=== PATIENT | female | born 1980 | race Caucasian/White ===

== ENCOUNTER → 2017-10-01 10:33 | Outpatient (CLI) | payer BC, SELFPAY ==
[2017-10-01 12:16] LABS: HCG Quant, Pregnancy 2404 mIU/mL (1-3)
== END ==
PROVIDERS: PCP Family Medicine; Visit Provider Obstetrics & Gynecology
DX: Z32.01 Encounter for pregnancy test, result positive (principal)
CPT/HCPCS: 36415; 84702

== ENCOUNTER → 2017-10-03 00:42 | Outpatient (CLI) | payer BC, SELFPAY ==
[2017-10-03 10:02] LABS: HCT 34.8 % (36.0-46.0); HGB 11.8 g/dL (12.0-15.5); Mean Corp. HGB Concentration 33.9 g/dL (32.0-36.0); Mean Corpuscular Volume 91.3 fL (80-95); Mean Platelet Volume 8.6 fL (8.0-11.0); Platelet Count 254 x1000/uL (130-400); RBC 3.81 m/cumm (4.00-5.20); RBC Distribution Width 12.1 % (11.7-14.6); White Blood Cell Count 2.84 k/cumm (4.4-10.8)
[2017-10-03 11:05] LABS: HCG Quant, Pregnancy 4052 mIU/mL (1-3)
[2017-11-07 10:11] LABS: Zika Elisa, Serum See Comments
== END ==
PROVIDERS: Obstetrics & Gynecology; PCP Family Medicine; Visit Provider Family Medicine
DX: D72.818 Other decreased white blood cell count (principal); Z32.01 Encounter for pregnancy test, result positive; Z36.89 Encounter for other specified antenatal screening
CPT/HCPCS: 36415; 85027; 84702

== ENCOUNTER 2017-11-07 06:33 | Day surgery (SDC) | payer BC, SELFPAY ==
[2017-11-07 06:20] VITALS: BP 118/71; PULSE 58; RESP 16; TEMP 37; O2SAT 100
[2017-11-07] MEDS: Lactated Ringers 1,000 ML 125 ML IV (06:57)
[2017-11-07 07:07] LABS: Absolute Basophil Count 0.05 k/cumm (0.0-0.2); Absolute Eosinophil Count 0.03 k/cumm (0.0-0.7); Absolute Lymphocyte Count 0.98 k/cumm (1.2-3.4); Absolute Monocyte Count 0.23 k/cumm (0.11-0.7); Basophils % 1.7; HCT 32.9 % (36.0-46.0); HGB 11.4 g/dL (12.0-15.5); Lymphocytes % 32.8; Mean Corp. HGB Concentration 34.7 g/dL (32.0-36.0); Mean Corpuscular Hemoglobin 31.6 pg (27.0-33.0); Mean Corpuscular Volume 91.1 fL (80-95); Mean Platelet Volume 8.9 fL (8.0-11.0); Monocytes % 7.7; Neutrophils % 56.8; Platelet Count 229 x1000/uL (130-400); RBC 3.61 m/cumm (4.00-5.20); White Blood Cell Count 2.99 k/cumm (4.4-10.8)
[2017-11-07] MEDS: Lidocaine 1% Pres-Free 5 ML VIAL 20 ML (07:50)
--- NOTE | 2017-11-07 07:55 | POCSPONT_PTH ---
PATIENT: Chasity Gallo [facility]: [facility] U#:[id number] AGE/SX: 37/F ROOM: RE11/07/[address]: Onesimo Kat MD : 1980 BED: DIS: 11/07/2017 SPEC #: [id number] RECD: 11/07/17 12:42 STATUS: LASHAE REQ #: [id number] ANCELMO: 11/07/17 07:[address]: Onesimo Kat DEPT: Surgical Specimen RECD BY: Desiree Ashraf ENTERED: 11/07/17 12:42 SP TYPE: POCSPONT AMY DR: Arabella Villarreal MD, DC Tissues: 1 - ,SPONTANEOUS Procedures: GROSS AND MICRO LEVEL 4 Comments: [id number]
[2017-11-07 08:35] VITALS: BP 106/64; PULSE 62; RESP 16; TEMP 36; O2SAT 100
[2017-11-07] MEDS: ACETAMINOPHEN 1,000 MG/100 ML BTL 400 MG IVPB (09:00)
[2017-11-07] MEDS: oxyCODONE 5 MG TAB PO (09:06)
[2017-11-07 09:35] VITALS: BP 120/75; PULSE 59; RESP 16; TEMP 36; O2SAT 100
--- NOTE | 2017-11-07 12:11 | W.PM.OP ---
Operative Note Date of procedure: 11/07/17 Pre-op diagnosis: Missed Post-op diagnosis: same Procedure: Suction D&C Surgeon: Onesimo Kat Anesthesia: MAC Estimated blood loss (mL): 100 Pathology: other (Products of conception) Complications: None Patient was transported to: PACU Patient's condition: stable Findings: Products of conception Procedure Description: The patient was taken to the operating room and after adequate sedation the patient was placed in lithotomy positioin. The patient was prepped and draped in the usual sterile manner. The bladder was straight cathed for approximately 120ml of clear urine. A weighted speculum was placed in the vagina with good visualization of the cervix. The anterior lip of the cervix was grasped with an Allis forceps and the cervix gently dilated with Fatimah dilatators. A 9 F curved suction curette was advanced without difficulty. The suction apparatus was activated and curette was rotated. Copious products of conception were retrieved. A sharped loop curettage of the endometrial cavity was perfom and two additonal passes with the suction and curved curette were taken in order to evacuate the uterus. At this point the uterus was well contracted and bleeding was minimal. All instrumentation was removed and the patient transferred to PACU in stable condition.
== END 2017-11-07 10:41 | disposition home or self-care (01) ==
PROVIDERS: PCP Family Medicine; Visit Provider Obstetrics & Gynecology
PROC: (CPT 59841; principal; 2017-11-07 07:30)
DX: O02.1 Missed abortion (principal); K21.9 Gastro-esophageal reflux disease without esophagitis
CPT/HCPCS: 59812; 36415; 86850; 86900; 86901; 88305; 85025; J0131; J1885; J2250; J2405

== ENCOUNTER 2018-05-20 16:21 | Outpatient (CLI) | payer BC, SELFPAY ==
[2018-05-20 18:22] LABS: HCG Quant, Pregnancy 33 mIU/mL (1-3)
== END 2018-05-20 16:41 ==
PROVIDERS: PCP Family Medicine; Visit Provider Obstetrics & Gynecology
DX: Z34.91 Encounter for supervision of normal pregnancy, unspecified, first trimester (principal)
CPT/HCPCS: 36415; 84702

== ENCOUNTER 2018-05-22 01:34 | Outpatient (CLI) | payer BC, SELFPAY ==
[2018-05-22 15:00] LABS: HCG Quant, Pregnancy 115 mIU/mL (1-3)
== END 2018-05-22 01:54 ==
PROVIDERS: PCP Family Medicine; Visit Provider Obstetrics & Gynecology
DX: Z34.91 Encounter for supervision of normal pregnancy, unspecified, first trimester (principal); Z32.01 Encounter for pregnancy test, result positive
CPT/HCPCS: 36415; 84702

== ENCOUNTER 2018-05-27 15:06 | Outpatient (CLI) | payer BC, SELFPAY ==
[2018-05-27 16:45] LABS: HCG Quant, Pregnancy 2181 mIU/mL (1-3)
== END 2018-05-27 15:26 ==
PROVIDERS: PCP Family Medicine; Visit Provider Obstetrics & Gynecology
DX: Z34.91 Encounter for supervision of normal pregnancy, unspecified, first trimester (principal)
CPT/HCPCS: 36415; 84702

== ENCOUNTER 2018-05-29 13:33 | Outpatient (CLI) | payer BC, SELFPAY ==
[2018-05-29 14:26] LABS: HCG Quant, Pregnancy 5709 mIU/mL (1-3)
== END 2018-05-29 13:53 ==
PROVIDERS: PCP Family Medicine; Visit Provider Obstetrics & Gynecology
DX: Z34.90 Encounter for supervision of normal pregnancy, unspecified, unspecified trimester (principal)
CPT/HCPCS: 36415; 84702

== ENCOUNTER 2018-05-30 08:56 | Emergency (ER) | payer BC, SELFPAY ==
--- NOTE | 2018-05-30 09:08 | NUR.NOTE ---
pt has been seeing OBGYN who told her to come into the ED this morning for what he believes to be an ectopic
[2018-05-30 09:09] VITALS: BP 127/68; PULSE 89; RESP 16; TEMP 37; O2SAT 99
--- NOTE | 2018-05-30 09:43 | HPE_ITS ---
Date of service: 05/30/18 Time of Service: 09:42 Assessment and Plan (1) Ectopic : Current visit: Yes Status: Acute Will repeat HCG, CBC, and CMP today. Will treat with IM methotrexate. I had a lengthy discussion with the patient regarding follow up. We will repeat HCGs on day 4 and day 7. Due to her history of neutropenia will also check CBC with diff on each of those draws. She is counseled to seek care for signs and symptoms of rupture such as increase in abdominal pain. All questions were an swered. She is free for discharge once methotrexate has been administered. History of Present Illness Chief Complaint: Ectopic Narrative: 37 year old presents on my request to the emergency department for managment of suspected ectopic . I had followed this patient in the clinic and HCG levels did rise appropriately. HCG levels as follows: 05/20 - 05/22 - 115 05/27 I did perform an ultrasound in the clinic which showed a 2 cm mass in the right adnexa and a possible pseudosac in the endometrium but with no definintive IUP. The patient had been treated in the past for a suspected ectopic but it was never confirmed to be extrauterine and she reports that after MTX she did pass tissue. The patient reports no abdominal pain, cramping and no vaginal bleeding. Her medical history is significant for Hodgkins lymphoma but has been disease free. Review of Systems Constitutional Denies body ache(s), Denies difficulty sleeping, Denies fever(s) and Denies weakness Gastrointestinal Denies abdominal pain Genitourinary Denies system reviewed and no additional complaints, except as docu Neurologic Denies weakness [facility] Medical History Rash (Acute) (Acute) Neuropathy (Chronic 06/20/16) Missed (Acute 10/31/17) Gastroesophageal reflux disease (Chronic) Carpal tunnel syndrome on both sides (Suspected 08/26/16) Anxiety (Chronic 08/07/15) Herniated intervertebral disc of lumbar spine (Resolved) Hodgkin's disease in remission (Resolved) Hodgkin's disease of lymph nodes of multiple sites (Resolved) Injury of toe (Resolved) Thrombophlebitis of superficial veins of lower extremity (Resolved) Surgical History EGD - MAC (07/02/11) Open Carpal Tunnel release PROCEDURES Family History Mother Hypothyroid Father Neoplasm Brother Asthma Grandfather Neoplasm Grandfather Essential hypertension Grandmother Diabetes Neoplasm Grandmother Diabetes Daughter Asthma Daughter No problems noted. 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 Do you feel safe at home: Yes Do you feel safe in your relationship?: Yes Meds Home Medications Medication Instructions Recorded Confirmed Type Vitamin B6 50 mg PO DAILY 10/02/16 05/29/18 History ranitidine HCl 150 mg PO DAILY tab-cap 10/02/16 05/29/18 History fluticasone propionate 50 2 spray ANTHONY DAILY #47.4 gm 04/22/18 05/29/18 Rx mcg/actuation nasal spray,suspension Allergies Allergy/AdvReac Type Severity Reaction Status Date / Time No Known Drug Allergies Allergy Unverified 05/30/18 09:13 saline syringe AdvReac Mild nausea and Uncoded 05/30/18 09:13 vomiting Results Labs : 05/30/18 09:32 05/30/18 09:32 Last Vital Signs Temp 98.6 F 05/30/18 09:09 Pulse 89 05/30/18 09:09 Resp 16 05/30/18 09:09 BP 127/68 05/30/18 09:09 Pulse Ox 99 05/30/18 09:09
--- NOTE | 2018-05-30 10:00 | W.ED.GENAD ---
Discharge Plan Disposition Patient Disposition: HOME Condition: Good Discharge Details Chief Complaint: Abd Prob Clinical Impression: Ectopic Primary Care Provider: Arabella Villarreal ED Provider: Good De Home Meds and New Rx's Prescriptions: No Action fluticasone propionate 50 mcg/actuation spray,suspension 2 spray ANTHONY DAILY Qty: 47.4 RF: 5 ranitidine HCl 150 MG capsule 150 mg PO DAILY RF: 0 vitamin b6 50 mg PO DAILY RF: 0 Discharge Instructions Instructions: Ectopic (ED) Additional Instructions: Please return on 06/02/18 and 06/05/18 to the woman's wellness clinic or the lab for repeat blood draw. Please follow-up as soon as possible with Dr. Kat for your scheduled appointment for reassessment and reevaluation. If you notice any pain, vaginal discharge, nausea, worsening back pain, please return immediately for reassessment. Please have a low threshold of return to the emergency department for any symptoms that concern you. If you notice any worsening of your symptoms, or any new symptoms such as vomiting, diarrhea, fever, chills, shortness of breath, chest pain, numbness, weakness, or fainting , please return immediately to the emergency department for reevaluation. Please follow up with your primary care provider as soon as possible for reassessment and reevaluation. As always, it was a pleasure participating in your medical care today. Referrals: Arabella Villarreal MD, [place] [Primary Care Provider] - Medical Decision Making This is a 37-year-old female with a past medical history of 2 ectopic pregnancies in the past, as well as 1 miscarriage a few months ago for which she required a D&C. She does have a history of Hodgkin's lymphoma, for which she was cured 5 years ago. Patient states that she took a test on 2 weeks ago and noted it was elevated, then when she went to see her obstetrics needle loom weaver ultrasound revealed no evidence of intrauterine . Questionable ectopic component on the left. Dr. Kat sent the patient in today for administration of methotrexate since it is the weekend. The patient denies any history of vaginal discharge, STD, previous abdominal surgeries, or other complaints. She states that the pain is actually very minimal and she only has a mild left lower back ache. She denies any pelvic pain. Dr. Kat came and evaluated the patient here in the ED, ordered methotrexate for administration, as well as outpatient lab follow-up. Patient remains hemodynamically stable, is a nontender abdomen and pelvis, shows no signs of acute decompensation. Dr. Kat's recommendation is discharged with close follow-up in the next 3 and 5 days for laboratory redraw. Lab slips have been provided, a clear plan has been discussed with the patient, she is well aware of symptoms for which to follow-up with, and the importance of close follow-up with her obstetrics needle loom weaver. We discussed red flags for which to return. Diagnosis suspected ectopic . I have extensively reviewed the treatment plan and discharge instructions with the patient. I have addressed all patient concerns at this time. The patient was made aware of what symptoms to monitor for that would warrant a return to the emergency department. Discussed the plan with the patient, they demonstrate verbal understanding and agreement with our assessment and plan at this time. HPI General Date/Time Provider Initiated Documentation: 05/30/18 09:04. HPI Narrative: This is a 37-year-old female with a past medical history of 2 ectopic pregnancies in the past, as well as 1 miscarriage a few months ago for which she required a D&C. She does have a history of Hodgkin's lymphoma, for which she was cured 5 years ago. Patient states that she took a test on 2 weeks ago and noted it was elevated, then when she went to see her obstetrics needle loom weaver ultrasound revealed no evidence of intrauterine . Questionable ectopic component on the left. Dr. Kat sent the patient in today for administration of methotrexate since it is the weekend. The patient denies any history of vaginal discharge, STD, previous abdominal surgeries, or other complaints. She states that the pain is actually very minimal and she only has a mild left lower back ache. She denies any pelvic pain. Dr. Kat came and evaluated the patient here in the ED, ordered methotrexate for administration, as well as outpatient lab follow-up. Patient has no additional complaints at this time. No other modifying factors. Related Data Home Medications Medication Instructions Recorded Confirmed Vitamin B6 50 mg PO DAILY 10/02/16 05/29/18 ranitidine HCl 150 mg PO DAILY tab-cap 10/02/16 05/29/18 fluticasone propionate 50 2 spray ANTHONY DAILY #47.4 gm 04/22/18 05/29/18 mcg/actuation nasal spray,suspension Previous Rx's Medication Instructions Recorded fluticasone propionate 50 2 spray ANTHONY DAILY #47.4 gm 04/22/18 mcg/actuation nasal spray,suspension Allergies Allergy/AdvReac Type Severity Reaction Status Date / Time No Known Drug Allergies Allergy Unverified 05/30/18 09:13 saline syringe AdvReac Mild nausea and Uncoded 05/30/18 09:13 vomiting General Stated Complaint: Abd Prob MARIBEL: 3 Review of Systems Review of Systems All systems reviewed & are unremarkable except as noted in HPI and below PFSH Medical History Rash (Acute) (Acute) Neuropathy (Chronic 06/20/16) Missed (Acute 10/31/17) Gastroesophageal reflux disease (Chronic) Carpal tunnel syndrome on both sides (Suspected 08/26/16) Anxiety (Chronic 08/07/15) Herniated intervertebral disc of lumbar spine (Resolved) Hodgkin's disease in remission (Resolved) Hodgkin's disease of lymph nodes of multiple sites (Resolved) Injury of toe (Resolved) Thrombophlebitis of superficial veins of lower extremity (Resolved) Surgical History EGD - MAC (07/02/11) Open Carpal Tunnel release PROCEDURES Family History Mother Hypothyroid Father Neoplasm Brother Asthma Grandfather Neoplasm Grandfather Essential hypertension Grandmother Diabetes Neoplasm Grandmother Diabetes Daughter Asthma Daughter No problems noted. 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 3.ENT: Atraumatic external nose and ears. Moist MM. Neck: Symmetric, trachea midline, No thyromegaly. 4.CVS: +S1/S2, No murmurs or gallops. Peripheral pulses 2+ and equal in all extremities. Brisk capillary refill in all extremities. 5.RESP: Unlabored respiratory effort. Clear to auscultation bilaterally. No wheezes rales or rhonchi 6.GI: Soft, Nontender/Nondistended, No hepatosplenomegaly. No guarding or rebound. No pelvic tenderness. No flank or CVA tenderness. 7.MSK: Normocephalic/Atraumatic, Extremities w/o deformity or ttp No cyanosis or clubbing, Normal movement of all extremities 8.Skin: Warm, Dry. No rashes or lesions. 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 Sensation grossly intact, no focal neurologic deficits. 10.Psych: (AAO) x3. Appropriate mood and affect Course Vital Signs Temperature 37 C 05/30/18 09:09 Pulse 89 05/30/18 09:09 Respiratory Rate 16 05/30/18 09:09 Blood Pressure 127/68 05/30/18 09:09 Pulse Oximetry 99 05/30/18 09:09 Temperature 37 C 05/30/18 09:09 Temperature Source Skin 05/30/18 09:09 Pulse 89 05/30/18 09:09 Respiratory Rate 16 05/30/18 09:09 Respiratory Effort 05/30/18 09:12 Blood Pressure 127/68 05/30/18 09:09 Blood Pressure Position Sitting 05/30/18 09:09 Pulse Oximetry 99 05/30/18 09:09 Oxygen Delivery Method Room Air 05/30/18 09:09 Oxygen Flow Rate 0 05/30/18 09:09 Pain Level 2 05/30/18 09:09
[2018-05-30 10:05] LABS: Abs Immature Grans 0.01 k/cumm (0.0-0.09); Absolute Basophil Count 0.05 k/cumm (0.0-0.2); Absolute Eosinophil Count 0.05 k/cumm (0.0-0.7); Absolute Monocyte Count 0.41 k/cumm (0.11-0.7); Absolute Neutrophil Count 3.25 k/cumm (1.2-6.7); Basophils % 1.1; Eosinophils % 1.1; HCT 35.2 % (36.0-46.0); Immature Grans % 0.2; Lymphocytes % 19.3; Mean Corp. HGB Concentration 34.1 g/dL (32.0-36.0); Mean Corpuscular Hemoglobin 30.9 pg (27.0-33.0); Mean Corpuscular Volume 90.7 fL (80-95); Mean Platelet Volume 8.7 fL (8.0-11.0); Monocytes % 8.8; Neutrophils % 69.5; Platelet Count 318 x1000/uL (130-400); RBC 3.88 m/cumm (4.00-5.20); RBC Distribution Width 11.9 % (11.7-14.6); White Blood Cell Count 4.67 k/cumm (4.4-10.8)
--- NOTE | 2018-05-30 10:06 | ED.GENADUL_ITS ---
Discharge Plan Disposition Patient Disposition: HOME Condition: Good Discharge Details Chief Complaint: Abd Prob Clinical Impression: Ectopic Primary Care Provider: Arabella Villarreal ED Provider: Good De Home Meds and New Rx's Prescriptions: No Action fluticasone propionate 50 mcg/actuation spray,suspension 2 spray ANTHONY DAILY Qty: 47.4 RF: 5 ranitidine HCl 150 MG capsule 150 mg PO DAILY RF: 0 vitamin b6 50 mg PO DAILY RF: 0 Discharge Instructions Instructions: Ectopic (ED) Additional Instructions: Please return on 06/02/18 and 06/05/18 to the woman's wellness clinic or the lab for repeat blood draw. Please follow-up as soon as possible with Dr. Kat for yo ur scheduled appointment for reassessment and reevaluation. If you notice any pain, vaginal discharge, nausea, worsening back pain, please return immediately for reassessment. Please have a low threshold of return to the emergency department for any symptoms that concern you. If you notice any worsening of your symptoms, or any new symptoms such as vomiting, diarrhea, fever, chills, shortness of breath, chest pain, numbness, weakness, or fainting , please return immediately to the emergency department for reevaluation. Please follow up with your primary care provider as soon as possible for reassessment and reevaluation. As always, it was a pleasure participating in your medical care today. Referrals: Arabella Villarreal MD, [place] [Primary Care Provider] - Medical Decision Making This is a 37-year-old female with a past medical history of 2 ectopic pregnancies in the past, as well as 1 miscarriage a few months ago for which she required a D&C. She does have a history of Hodgkin's lymphoma, for which she was cured 5 years ago. Patient states that she took a test on 2 weeks ago and noted it was elevated, then when she went to see her obstetrics marketing intern ultrasound revealed no evidence of intrauterine . Questionable ectopic component on the left. Dr. Kat sent the patient in today for administration of methotrexate since it is the weekend. The patient denies any history of vaginal discharge, STD, previous abdominal surgeries, or other complaints. She states that the pain is actually very minimal and she only has a mild left lower back ache. She denies any pelvic pain. Dr. Kat came and evaluated the patient here in the ED, ordered methotrexate for administration, as well as outpatient lab follow-up. Patient remains hemodynamically stable, is a nontender abdomen and pelvis, shows no signs of acute decompensation. Dr. Kat's recommendation is discharged with close follow-up in the next 3 and 5 days for laboratory redraw. Lab slips have been provided, a clear plan has been discussed with the patient, she is well aware of symptoms for which to follow-up with, and the importance of close follow-up with her obstetrics marketing intern. We discussed red flags for which to return. Diagnosis suspected ectopic . I have extensively reviewed the treatment plan and discharge instructions with the patient. I have addressed all patient concerns at this time. The patient was made aware of what symptoms to monitor for that would warrant a return to the emergency department. Discussed the plan with the patient, they demonstrate verbal understanding and agreement with our assessment and plan at this time. HPI General Date/Time Provider Initiated Documentation: 05/30/18 09:04 . HPI Narrative: This is a 37-year-old female with a past medical history of 2 ectopic pregnancies in the past, as well as 1 miscarriage a few months ago for which she required a D&C. She does have a history of Hodgkin's lymphoma, for which she was cured 5 years ago. Patient states that she took a test on 2 weeks ago and noted it was elevated, then when she went to see her obstetrics marketing intern ultrasound revealed no evidence of intrauterine . Questionable ectopic component on the left. Dr. Kat sent the patient in today for administration of methotrexate since it is the weekend. The patient denies any history of vaginal discharge, STD, previous abdominal surgeries, or other complaints. She states that the pain is actually very minimal and she only has a mild left lower back ache. She denies any pelvic rei n. Dr. Kat came and evaluated the patient here in the ED, ordered methotrexate for administration, as well as outpatient lab follow-up. Patient has no additional complaints at this time. No other modifying factors. Related Data Home Medications Medication Instructions Recorded Confirmed Vitamin B6 50 mg PO DAILY 10/02/16 05/29/18 ranitidine HCl 150 mg PO DAILY tab-cap 10/02/16 05/29/18 fluticasone propionate 50 2 spray ANTHONY DAILY #47.4 gm 04/22/18 05/29/18 mcg/actuation nasal spray,suspension Previous Rx's Medication Instructions Recorded fluticasone propionate 50 2 spray ANTHONY DAILY #47.4 gm 04/22/18 mcg/actuation nasal spray,suspension Allergies Allergy/AdvReac Type Severity Reaction Status Date / Time No Known Drug Allergies Allergy Unverified 05/30/18 09:13 saline syringe AdvReac Mild nausea and Uncoded 05/30/18 09:13 vomiting General Stated Complaint: Abd Prob MARIBEL: 3 Review of Systems Review of Systems All systems reviewed & are unremarkable except as noted in HPI and below PFSH Medical History Rash (Acute) (Acute) Neuropathy (Chronic 06/20/16) Missed (Acute 10/31/17) Gastroesophageal reflux disease (Chronic) Carpal tunnel syndrome on both sides (Suspected 08/26/16) Anxiety (Chronic 08/07/15) Herniated intervertebral disc of lumbar spine (Resolved) Hodgkin's disease in remission (Resolved) Hodgkin's disease of lymph nodes of multiple sites (Resolved) Injury of toe (Resolved) Thrombophlebitis of superficial veins of lower extremity (Resolved) Surgical History EGD - MAC (07/02/11) Open Carpal Tunnel release PROCEDURES Family History Mother Hypothyroid Father Neoplasm Brother Asthma Grandfather Neoplasm Grandfather Essential hypertension Grandmother Diabetes Neoplasm Grandmother Diabetes Daughter Asthma Daughter No problems noted. 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 3.ENT: Atraumatic external nose and ears. Moist MM. Neck: Symmetric, trachea midline, No thyromegaly. 4.CVS: +S1/S2, No murmurs or gallops. Peripheral pulses 2+ and equal in all extremities. Brisk capillary refill in all extremities. 5.RESP: Unlabored respiratory effort. Clear to auscultation bilaterally. No wheezes rales or rhonchi 6.GI: Soft, Nontender/Nondistended, No hepatosplenomegaly. No guarding or rebound. No pelvic tenderness. No flank or CVA tenderness. 7.MSK: Normocephalic/Atraumatic, Extremities w/o deformity or ttp No cyanosis or clubbing, Normal movement of all extremities 8.Skin: Warm, Dry. No rashes or lesions. 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 Sensation grossly intact, no focal neurologic deficits. 10.Psych: (AAO) x3. Appropriate mood and affect Course Vital Signs Temperature 37 C 05/30/18 09:09 Pulse 89 05/30/18 09:09 Respiratory Rate 16 05/30/18 09:09 Blood Pressure 127/68 05/30/18 09:09 Pulse Oximetry 99 05/30/18 09:09 Temperature 37 C 05/30/18 09:09 Temperature Source Skin 05/30/18 09:09 Pulse 89 05/30/18 09:09 Respiratory Rate 16 05/30/18 09:09 Respiratory Effort 05/30/18 09:12 Blood Pressure 127/68 05/30/18 09:09 Blood Pressure Position Sitting 05/30/18 09:09 Pulse Oximetry 99 05/30/18 09:09 Oxygen Delivery Method Room Air 05/30/18 09:09 Oxygen Flow Rate 0 05/30/18 09:09 Pain Level 2 05/30/18 09:09
[2018-05-30 10:13] VITALS: BP 120/70; PULSE 77; RESP 15; TEMP 37; O2SAT 99
[2018-05-30 10:38] LABS: ALT 27 U/L (12-78); AST 17 U/L (15-37); Albumin 3.8 g/dL (3.4-5.0); Alkaline Phosphatase 50 U/L (46-116); Anion Gap 10.7 mmol/L (3-11); BUN 12 mg/dL (7-18); Bilirubin, Total 0.4 mg/dL (0.2-1.0); CO2 25.3 mmol/L (21.0-32.0); CREATININE 0.88 mg/dL (0.55-1.02); Calcium 8.7 mg/dL (8.5-10.1); Chloride 105 mmol/L (98-107); Glucose 101 mg/dL (70-100); Potassium 3.8 mmol/L (3.5-5.1); Sodium 141 mmol/L (136-145); Total Protein 6.9 g/dL (6.4-8.2)
[2018-05-30 10:39] LABS: HCG Quant, Pregnancy 8007 mIU/mL (1-3)
== END 2018-05-30 10:16 | disposition home or self-care (01) ==
PROVIDERS: Obstetrics & Gynecology; Emergency Provider Student in an Organized Health Care Education/Training Program; PCP Family Medicine
DX: O00.90 Unspecified ectopic pregnancy without intrauterine pregnancy (principal); Z3A.00 Weeks of gestation of pregnancy not specified
CPT/HCPCS: 36415; 80053; 96372; 99223; 99284; 84702; 85025; J9250

== ENCOUNTER 2018-06-02 10:17 | Outpatient (CLI) | payer BC, SELFPAY ==
[2018-06-02 12:43] LABS: Abs Immature Grans 0.01 k/cumm (0.0-0.09); Absolute Basophil Count 0.04 k/cumm (0.0-0.2); Absolute Eosinophil Count 0.05 k/cumm (0.0-0.7); Absolute Lymphocyte Count 1.09 k/cumm (1.2-3.4); Absolute Monocyte Count 0.24 k/cumm (0.11-0.7); Basophils % 0.8; HCT 33.3 % (36.0-46.0); HGB 10.9 g/dL (12.0-15.5); Immature Grans % 0.2; Lymphocytes % 21.2; Mean Corp. HGB Concentration 32.7 g/dL (32.0-36.0); Mean Corpuscular Hemoglobin 30.1 pg (27.0-33.0); Mean Platelet Volume 8.9 fL (8.0-11.0); Monocytes % 4.7; Neutrophils % 72.1; Platelet Count 296 x1000/uL (130-400); RBC 3.62 m/cumm (4.00-5.20); RBC Distribution Width 12.3 % (11.7-14.6); White Blood Cell Count 5.13 k/cumm (4.4-10.8)
[2018-06-02 15:10] LABS: HCG Quant, Pregnancy 13721 mIU/mL (1-3)
== END 2018-06-02 10:37 ==
PROVIDERS: PCP Family Medicine; Visit Provider Obstetrics & Gynecology
DX: O00.90 Unspecified ectopic pregnancy without intrauterine pregnancy (principal)
CPT/HCPCS: 36415; 84702; 85025

== ENCOUNTER 2018-06-05 08:30 | Outpatient (CLI) | payer BC, SELFPAY ==
[2018-06-05 09:19] LABS: Absolute Basophil Count 0.05 k/cumm (0.0-0.2); Absolute Eosinophil Count 0.04 k/cumm (0.0-0.7); Absolute Lymphocyte Count 0.88 k/cumm (1.2-3.4); Absolute Monocyte Count 0.28 k/cumm (0.11-0.7); Absolute Neutrophil Count 1.81 k/cumm (1.2-6.7); Basophils % 1.6; Eosinophils % 1.3; HCT 33.7 % (36.0-46.0); HGB 11.1 g/dL (12.0-15.5); Lymphocytes % 28.8; Mean Corp. HGB Concentration 32.9 g/dL (32.0-36.0); Mean Corpuscular Hemoglobin 30.3 pg (27.0-33.0); Mean Corpuscular Volume 92.1 fL (80-95); Mean Platelet Volume 8.8 fL (8.0-11.0); Monocytes % 9.2; Neutrophils % 59.1; Platelet Count 275 x1000/uL (130-400); RBC 3.66 m/cumm (4.00-5.20); RBC Distribution Width 12.2 % (11.7-14.6); White Blood Cell Count 3.06 k/cumm (4.4-10.8)
[2018-06-05 10:22] LABS: HCG Quant, Pregnancy 15391 mIU/mL (1-3)
== END 2018-06-05 08:50 ==
PROVIDERS: PCP Family Medicine; Visit Provider Obstetrics & Gynecology
DX: O00.90 Unspecified ectopic pregnancy without intrauterine pregnancy (principal)
CPT/HCPCS: 36415; 84702; 85025

== ENCOUNTER 2018-06-05 16:25 | Outpatient (CLI) | payer BC, SELFPAY ==
--- NOTE | 2018-06-05 14:00 | DI.US_ITS ---
SYMPTOMS/DIAGNOSIS: S/P METHOTREXATE, INAPPROPRIATE RISING BETA-HCG, ? ECTOPIC OB ULTRASOUND: Many abnormalities cannot be diagnosed. A normal exam does not exclude a congenital anomaly. Radiology No. [id number] LMP: Exam Date: 06/05/18 [facility] wks days on EDC ([facility]) 04/10/18 Confirmed: HISTORY: PREDICTED GESTATIONAL AGE NUMBER 8+0 weeks with a range of week to weeks. 1 2 3 Multiple Determined by___1STUS___LMP___HISTORY Info. pertaining to fetus # PLACENTA PRESENTATION Grade Cephalic___ Anterior___Posterior___ Breech____ Right Left Transverse(head right___ Fundal___Low-lying___Previa___ Transverse(head left___ Varying BIOMETRY AMNIOTIC FLUID BPD: mm weeks Normal HC: mm weeks Oligo Polyhydramnios AC: mm weeks FL: mm weeks AMNIOTIC FLUID INDEX >26 WK CRL: mm weeks Cisterna Magna: mm CI: RUQ: LUQ Cerebellum: cm EFW: grams Percentile RLQ: LLQ Yolk sac 3 mm Total: cms Composite AGE= 6+1 wks EDC by US: 01/29/19 BIOPHYSICAL PROFILE ANATOMY IDENTIFIED SCORE 0/2 Heart: 4-Chamber___Rate:BPM LVOT: RVOT: Amniotic Fluid(>2cms)____ Stomach: Kidneys: Respirations (>30 secs) Bladder: Post. Fossa: Body Flex/Extension 3 vessel cord: Ventricles: cord insertion: Lips:____ Extremity Flex/Extension spinal morphology: Nose: Total Score= Palate: NS=not seen COMMENTS: OB ultrasound was performed transabdominally and transvaginally. There is an intrauterine gestational sac with yolk sac, but no distinct pole. No cardiac activity observed. Mean sac size would suggest gestational age of 6 weeks 1 day and an EDC of 01/29/19. There is a complex right ovarian cyst, which may represent a corpus luteum cyst. A small quantity of free fluid noted in the pelvis. The kidneys are unremarkable in appearance on limited scanning. Incidental note is made of cholelithiasis. CONCLUSION: Intrauterine gestation of questionable viability. Appropriate follow-up studies requested.
== END 2018-06-05 16:45 ==
PROVIDERS: PCP Family Medicine; Visit Provider Obstetrics & Gynecology
DX: O00.90 Unspecified ectopic pregnancy without intrauterine pregnancy (principal); O02.81 Inappropriate change in quantitative human chorionic gonadotropin (hCG) in early pregnancy
CPT/HCPCS: 76817

== ENCOUNTER 2018-06-10 06:11 | Day surgery (SDC) | payer BC, SELFPAY ==
[2018-06-10] VITALS (7 sets, daily range): BP systolic 108–113; BP diastolic 57–69; PULSE 52–65; RESP 12–20; TEMP 36.7–37.3; O2SAT 98–100
[2018-06-10] MEDS: Lactated Ringers 1,000 ML 125 ML IV ×2 (06:41→08:31)
[2018-06-10 07:15] LABS: HCT 32.4 % (36.0-46.0); HGB 10.8 g/dL (12.0-15.5); Mean Corp. HGB Concentration 33.3 g/dL (32.0-36.0); Mean Corpuscular Hemoglobin 30.8 pg (27.0-33.0); Mean Corpuscular Volume 92.3 fL (80-95); Mean Platelet Volume 8.8 fL (8.0-11.0); Platelet Count 257 x1000/uL (130-400); RBC 3.51 m/cumm (4.00-5.20); RBC Distribution Width 12.5 % (11.7-14.6); White Blood Cell Count 2.74 k/cumm (4.4-10.8)
[2018-06-10 08:14] LABS: HCG Quant, Pregnancy 12817 mIU/mL (1-3)
[2018-06-10] MEDS: Lidocaine 1% Multi-Dose 50 ML VIAL (08:31)
--- NOTE | 2018-06-10 08:32 | POCSPONT_PTH ---
PATIENT: Chasity Gallo LOC: [facility] U#:[id number] AGE/SX: 37/F ROOM: RE06/10/[address]: Onesimo Kat MD : 1980 BED: DIS: 06/10/2018 SPEC #: [id number] RECD: 06/10/18 12:46 STATUS: LASHAE REQ #: [id number] ANCELMO: 06/10/18 08:[address]: Onesimo Kat DEPT: Surgical Specimen RECD BY: Desiree Ashraf ENTERED: 06/10/18 12:47 SP TYPE: POCSPONT OTHR DR: Arabella Villarreal MD, [place] Tissues: 1 - ,SPONTANEOUS Procedures: GROSS AND MICRO LEVEL 4 Comments: [id number]
--- NOTE | 2018-06-10 15:06 | W.PM.OP ---
Date of service: 06/10/18 Time of Service: 15:06 Operative Note DATE OF PROCEDURE: 06/10/18 PRE-OP DIAGNOSIS: Missed POST-OP DIAGNOSIS: same PROCEDURE: Suction D&C SURGEON: Onesimo Kat ANESTHESIA: MAC and regional ESTIMATED BLOOD LOSS: 0 PATHOLOGY: other (Products of conception) COMPLICATIONS: None Patient was transported to: same day Patient's condition: stable Procedure Description: The patient was taken to the operating room and after adequate sedation was achieved the patient was placed in lithotomy position. The patient was prepped and draped in the usual sterile manner. A weighted speculum was placed in the vagina with good visualization of the cervix. A paracervical block with 1% plain lidocaine was instilled. The cervix was gently dilated with Hudson dilators and the 8 sammarinese curved suction curette was advanced easily. The suction was activated and products of conception were retrieved. A sharp curettage was performed yielding no additional tissue. The procedure was concluded at this point. Needle, sponge and instrument counts were correct at the conclusion of the procedure. The procedure was tolerated well and the patient was transferred to PACU in stable condition.
--- NOTE | 2018-06-10 15:11 | ROE_ITS ---
Date of service: 06/10/18 Time of Service: 15:06 Operative Note DATE OF PROCEDURE: 06/10/18 PRE-OP DIAGNOSIS: Missed POST-OP DIAGNOSIS: same PROCEDURE: Suction D&C SURGEON: Onesimo Kta ANESTHESIA: MAC and regional ESTIMATED BLOOD LOSS: 0 PATHOLOGY: other (Products of conception) COMPLICATIONS: None Patient was transported to: same day Patient's condition: stable Procedure Description: The patient was taken to the operating room and after adequate sedation was achieved the patient was placed in lithotomy position. The patient was prepped and draped in the usual sterile manner. A weighted speculum was placed in the vagina with good visualization of the cervix. A paracervical block with 1% plain lidocaine was instilled. The cervix was gently dilated with Hudson dilators and the 8 citizen of [place] curved suction curette was advanced easily. The suction was activated and products of conception were retrieved. A sharp curettage was performed yielding no additional tissue. The procedure was co ncluded at this point. Needle, sponge and instrument counts were correct at the conclusion of the procedure. The procedure was tolerated well and the patient was transferred to PACU in stable condition.
--- NOTE | 2018-06-10 15:11 | W.PM.HP.N ---
Date of service: 06/10/18 Time of Service: 15:11 Assessment and Plan (1) Missed with demise before 20 completed weeks of gestation: Current visit: Yes Status: Acute Plan to proceed with suction D&C. Risks of surgery were reviewed with the patient. All questions were answered to the patient's satisfaction and consent was obtained. History of Present Illness Narrative: 37 year presents today for scheduled suction D&C. The patient was felt initially to have had an ectopic . We had followed her HCG levels to above 2000 and performed her first ultrasound in the clinic. At that time there uterus contained a 1-2 mm hypoechoic region felt to be a pseudosac. No definitive IUP was noted. A large right adnexal cyst on the right was seen but it was unclear if this was a corpus luteum or possibly an ectopic pregnacy. Her HCG on the day of her first ultrsaound was 5709 on 05/29. I contacted the patient after this hcg level had been drawn out of concern for a spected ectopic and had her present to the emergency department the following day for treatment with methotrexate. HCG the next day was 8007 and a transabdominal scan was performed showing again the large adnexal cyst and an empty endometrial cavity. The patient was administered methotrexate that day and scheduled per protocol for serial hcgs. On Day 4 following [place] [address] and on day 7 was 10899. A repeat ultrasound was performed demonstrating a gestational sac and yolk sac but no pole. Her hcg levels at this point had plateaued and it was felt that this was not a viable intrauterine at this point. The patient opted to proceed with D&C for management. [facility] Medical History Rash (Acute) (Acute) Neuropathy (Chronic 06/20/16) Missed (Acute 10/31/17) Gastroesophageal reflux disease (Chronic) Carpal tunnel syndrome on both sides (Suspected 08/26/16) Anxiety (Chronic 08/07/15) Herniated intervertebral disc of lumbar spine (Resolved) Hodgkin's disease in remission (Resolved) Hodgkin's disease of lymph nodes of multiple sites (Resolved) Injury of toe (Resolved) Thrombophlebitis of superficial veins of lower extremity (Resolved) Surgical History Hx of tonsillectomy (Chronic) EGD - MAC (07/02/11) Open Carpal Tunnel release PROCEDURES Family History Mother Hypothyroid Father Neoplasm Brother Asthma Grandfather Neoplasm Grandfather Essential hypertension Grandmother Diabetes Neoplasm Grandmother Diabetes Daughter Asthma Daughter No problems noted. 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 Date GA/Weeks # Outcome Route Wgt Sex Labor Lgth Anesthesia Location Prov Complic 05/30/18 Unsuccessful Delivery Date: 05/30/18 On 06/02/18 @ 08:37 Vonda GILLILAND,Jory Pt was dx with an ectopic and was given Methotrexate in the ER on 05/30/18.Pt Quant was 8007 Pt will repeat her Quant this week. Meds Home Medications Medication Instructions Recorded Confirmed Type Vitamin B6 50 mg PO DAILY 10/02/16 06/10/18 History ranitidine HCl 150 mg PO DAILY tab-cap 10/02/16 06/10/18 History fluticasone propionate 50 2 spray ANTHONY DAILY #47.4 gm 04/22/18 06/10/18 Rx mcg/actuation nasal spray,suspension PNV cmb#95-ferrous fumarate-FA 1 tab PO DAILY 06/10/18 06/10/18 History [] Allergies Allergy/AdvReac Type Severity Reaction Status Date / Time No Known Drug Allergies Allergy Unverified 06/10/18 06:18 Results Labs : 06/10/18 07:02 Laboratory Results - last 24 hr 06/10/18 06/10/18 06/10/18 07:02 07:02 07:02 WBC 2.74 L RBC 3.51 L Hgb 10.8 L Hct 32.4 L MCV 92.3 MCH 30.8 MCHC 33.3 RDW 12.5 Plt Count 257 MPV 8.8 Beta HCG, Quant 96927 H Patient ABO/Rh O Positive Antibody Screen Negative Last Vital Signs Temp 99.1 F 06/10/18 10:05 Pulse 52 L 06/10/18 10:05 Resp 16 06/10/18 10:05 BP 109/59 L 06/10/18 10:05 Pulse Ox 100 06/10/18 10:05
--- NOTE | 2018-06-10 15:14 | HPE_ITS ---
Date of service: 06/10/18 Time of Service: 15:11 Assessment and Plan (1) Missed with demise before 20 completed weeks of gestation: Current visit: Yes Status: Acute Plan to proceed with suction D&C. Risks of surgery were reviewed with the patient. All questions were answered to the patient's satisfaction and consent was obtained. History of Present Illness Narrative: 37 year presents today for scheduled suction D&C. The patient was felt initially to have had an ectopic . We had followed her HCG levels to above 2000 and performed her first ultrasound in the clinic. At that time there uterus contained a 1-2 mm hypoechoic region felt to be a pseudosac. No definitive IUP was noted. A large right adnexal cyst on the right was seen but it was unclear if this was a corpus luteum or possibly an ectopic pregnacy. Her HCG on the day of her first ultrsaound was 5709 on 05/29. I contacted the patient after this hcg level had been drawn out of concern for a spected ectopic and had her present to the emergency department the following day for treatment with methotrexate. HCG the next day was 8007 and a transabdominal scan was performed showing again the large adnexal cyst and an empty endometrial cavity. The patient was administered methotrexate that day and scheduled per protocol for serial hcgs. On Day 4 following [place] [address] and on day 7 was 56876. A repeat ultrasound was performed demonstrating a gestational sac and yolk sac but no pole. Her hcg levels at this point had plateaued and it was felt that this was not a viable intrauterine at this point. The patient opted to proceed with D&C for management. [facility] Medical History Rash (Acute) (Acute) Neuropathy (Chronic 06/20/16) Missed (Acute 10/31/17) Gastroesophageal reflux disease (Chronic) Carpal tunnel syndrome on both sides (Suspected 08/26/16) Anxiety (Chronic 08/07/15) Herniated intervertebral disc of lumbar spine (Resolved) Hodgkin's disease in remission (Resolved) Hodgkin's disease of lymph nodes of multiple sites (Resolved) Injury of toe (Resolved) Thrombophlebitis of superficial veins of lower extremity (Resolved) Surgical History Hx of tonsillectomy (Chronic) EGD - MAC (07/02/11) Open Carpal Tunnel release PROCEDURES Family History Mother Hypothyroid Father Neoplasm Brother Asthma Grandfather Neoplasm Grandfather Essential hypertension Grandmother Diabetes Neoplasm Grandmother Diabetes Daughter Asthma Daughter No problems noted. 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 Date GA/Weeks # Outcome Route Wgt Sex Labor Lgth Anesthesia Location Prov Complic 05/30/18 Unsuccessful Delivery Date: 05/30/18 On 06/02/18 @ 08:37 Vonda GILLILAND,Jory Pt was dx with an ectopic and was given Methotrexate in the ER on 05/30/18.Pt Quant was 8007 Pt will repeat her Quant this week. Meds Home Medications Medication Instructions Recorded Confirmed Type Vitamin B6 50 mg PO DAILY 10/02/16 06/10/18 History ranitidine HCl 150 mg PO DAILY tab-cap 10/02/16 06/10/18 History fluticasone propionate 50 2 spray ANTHONY DAILY #47.4 gm 04/22/18 06/10/18 Rx mcg/actuation nasal spray,suspension PNV cmb#95-ferrous fumarate-FA 1 tab PO DAILY 06/10/18 06/10/18 History [] Allergies Allergy/AdvReac Type Severity Reaction Status Date / Time No Known Drug Allergies Allergy Unverified 06/10/18 06:18 Results Labs : 06/10/18 07:02 Laboratory Results - last 24 hr 06/10/18 06/10/18 06/10/18 07:02 07:02 07:02 WBC 2.74 L RBC 3.51 L Hgb 10.8 L Hct 32.4 L MCV 92.3 MCH 30.8 MCHC 33.3 RDW 12.5 Plt Count 257 MPV 8.8 Beta HCG, Quant 92858 H Patient ABO/Rh O Positive Antibody Screen Negative Last Vital Signs Temp 99.1 F 06/10/18 10:05 Pulse 52 L 06/10/18 10:05 Resp 16 06/10/18 10:05 BP 109/59 L 06/10/18 10:05 Pulse Ox 100 06/10/18 10:05
== END 2018-06-10 10:35 | disposition home or self-care (01) ==
PROVIDERS: PCP Family Medicine; Visit Provider Obstetrics & Gynecology
PROC: (CPT 59841; principal; 2018-06-10 07:30)
DX: O02.1 Missed abortion (principal)
CPT/HCPCS: 59820; 36415; 85027; 86850; 86900; 86901; 88305; NC; 84702; J0131; J1100; J1200; J1885; J2250; J2405; J3010

== ENCOUNTER 2018-06-19 01:20 | Outpatient (CLI) | payer BC, SELFPAY ==
[2018-06-19 09:35] LABS: HCG Quant, Pregnancy 196 mIU/mL (1-3)
== END 2018-06-19 01:40 ==
PROVIDERS: PCP Family Medicine; Visit Provider Obstetrics & Gynecology
DX: O02.1 Missed abortion (principal)
CPT/HCPCS: 36415; 84702

== ENCOUNTER 2018-07-01 07:24 | Outpatient (CLI) | payer BC, SELFPAY ==
[2018-07-01 17:18] LABS: HCG Quant, Pregnancy 9 mIU/mL (1-3)
== END 2018-07-01 07:44 ==
PROVIDERS: PCP Family Medicine; Visit Provider Obstetrics & Gynecology
DX: O02.1 Missed abortion (principal)
CPT/HCPCS: 36415; 84702

== ENCOUNTER 2018-11-20 02:01 | Outpatient (CLI) | payer BC, SELFPAY ==
[2018-11-20 07:40] LABS: HCT 36.5 % (36.0-46.0); Mean Corp. HGB Concentration 32.9 g/dL (32.0-36.0); Mean Corpuscular Hemoglobin 30.3 pg (27.0-33.0); Mean Corpuscular Volume 92.2 fL (80-95); Mean Platelet Volume 9.1 fL (8.0-11.0); Platelet Count 284 x1000/uL (130-400); RBC 3.96 m/cumm (4.00-5.20)
[2018-11-20 08:44] LABS: ALT 32 U/L (14-59); AST 23 U/L (15-37); Albumin 4.1 g/dL (3.4-5.0); Alkaline Phosphatase 35 U/L (46-116); Anion Gap 11.5 mmol/L (3-11); BUN 11 mg/dL (7-18); Bilirubin, Total 0.6 mg/dL (0.2-1.0); CO2 25.5 mmol/L (21.0-32.0); CREATININE 0.78 mg/dL (0.55-1.02); Calcium 8.8 mg/dL (8.5-10.1); Chloride 106 mmol/L (98-107); Cholesterol 149 mg/dL (50-200); Glucose 84 mg/dL (70-100); HDL Cholesterol 79 mg/dL (40-60); Potassium 4.7 mmol/L (3.5-5.1); Sodium 143 mmol/L (136-145); Total Protein 6.7 g/dL (6.4-8.2)
[2018-11-20 08:52] LABS: Triglyceride < 25 mg/dL (30-150)
[2018-11-20 09:03] LABS: LDL CHOLESTEROL 72 mg/dL (<100)
== END 2018-11-20 02:21 ==
PROVIDERS: PCP Family Medicine; Visit Provider Family Medicine
DX: Z00.00 Encounter for general adult medical examination without abnormal findings (principal); Z13.29 Encounter for screening for other suspected endocrine disorder; Z13.220 Encounter for screening for lipoid disorders; Z13.228 Encounter for screening for other metabolic disorders
CPT/HCPCS: 36415; 80053; 80061; 83721; 85027; 84443

== ENCOUNTER 2019-03-23 08:09 | Outpatient (CLI) | payer BC, SELFPAY ==
[2019-03-23 08:54] LABS: Kit/Specimen SENT
[2019-03-23 09:04] LABS: Abs Immature Grans 0.01 k/cumm (0.0-0.09); Absolute Basophil Count 0.03 k/cumm (0.0-0.2); Absolute Eosinophil Count 0.06 k/cumm (0.0-0.7); Absolute Lymphocyte Count 0.71 k/cumm (1.2-3.4); Absolute Monocyte Count 0.27 k/cumm (0.11-0.7); Basophils % 0.8; Eosinophils % 1.6; HCT 31.9 % (36.0-46.0); HGB 10.6 g/dL (12.0-15.5); Immature Grans % 0.3 %; Lymphocytes % 18.8; Mean Corp. HGB Concentration 33.2 g/dL (32.0-36.0); Mean Corpuscular Hemoglobin 29.9 pg (27.0-33.0); Mean Corpuscular Volume 90.1 fL (80-95); Mean Platelet Volume 8.7 fL (8.0-11.0); Monocytes % 7.1; Neutrophils % 71.4; Platelet Count 282 x1000/uL (130-400); RBC 3.54 m/cumm (4.00-5.20); RBC Distribution Width 12.6 % (11.7-14.6); White Blood Cell Count 3.78 k/cumm (4.4-10.8)
[2019-03-24 09:05] LABS: Hepatitis B Surface Ag Negative (Negative)
[2019-03-24 09:47] LABS: HIV-1/2 Ag & Ab Screen Negative (Negative); Hepatitis C Ab w Rflx HCV PCR Negative (Negative)
[2019-03-24 10:29] LABS: Rubella IgG Ab (UVM) Positive (See Note); Syphilis Serology (RPR) Negative (Negative); Varicella IgG Antibody Positive (See Note)
== END 2019-03-23 08:29 ==
PROVIDERS: PCP Family Medicine; Visit Provider Obstetrics & Gynecology
DX: O09.511 Supervision of elderly primigravida, first trimester (principal); Z36.89 Encounter for other specified antenatal screening
CPT/HCPCS: 80055; 86787; 86803; 86850; 86900; 86901; 87340; 87389; 84443; 86592; 86762

== ENCOUNTER 2019-03-30 17:11 | Outpatient (REF) | payer BC, SELFPAY ==
--- NOTE | 2019-03-30 16:47 | PAPFT_PTH ---
PATIENT: Chasity Gallo LOC: [facility] U#:[id number] AGE/SX: 38/F ROOM: RE03/30/[address]: Onesimo Kat MD : 1980 BED: DIS: 03/30/2019 SPEC #: [id number] RECD: 03/31/19 12:52 STATUS: LASHAE RENathan #: [id number] ANCELMO: 03/30/19 16:[address]: Onesimo Kat DEPT: [facility] Cytology RECD BY: Desiree Ashraf ENTERED: 03/31/19 12:52 SP TYPE: PAPFT OTHR DR: Arabella Villarreal MD, DC Tissues: 1 - CX/ENDOCX FOR PAP SMEARS Procedures: PAP THIN PREP/UVM Screening Comments: [id number] (CHLAMYDIA/GC)
[2019-03-30 19:07] LABS: *AMPHETAMINES SCREEN URINE Negative (Negative); *BARBITURATES SCREEN URINE Negative (Negative); *BENZODIAZEPINES SCREEN URINE Negative (Negative); Cannabinoids THC Negative (Negative); Cocaine Screen,Urine Negative (Negative); METHADONE URINE SCREEN Negative (Negative); OPIATES URINE SCREEN Negative (Negative)
[2019-03-30 19:18] LABS: Tricyclic Antidepressants Negative (Negative)
[2019-04-01 12:55] LABS: Chlamydia Result Negative (Negative); GC Result Negative (Negative)
[2019-04-03 03:31] LABS: Buprenorphine Negative; Norbuprenorphine Negative
== END 2019-03-30 17:31 ==
LOC: LBN 17:11
PROVIDERS: PCP Family Medicine; Visit Provider Obstetrics & Gynecology
DX: Z34.91 Encounter for supervision of normal pregnancy, unspecified, first trimester (principal); Z11.3 Encounter for screening for infections with a predominantly sexual mode of transmission; Z12.4 Encounter for screening for malignant neoplasm of cervix
CPT/HCPCS: 80307; 87491; 87591; 88142; 87086

== ENCOUNTER 2019-07-08 15:44 | Outpatient (CLI) | payer BC, SELFPAY ==
[2019-07-08 17:04] LABS: Glucose,1 Hr (Glucola) 142 mg/dL (80-140)
[2019-07-08 17:10] LABS: Abs Immature Grans 0.03 k/cumm (0.0-0.09); Absolute Basophil Count 0.03 k/cumm (0.0-0.2); Absolute Eosinophil Count 0.03 k/cumm (0.0-0.7); Absolute Lymphocyte Count 0.89 k/cumm (1.2-3.4); Absolute Monocyte Count 0.34 k/cumm (0.11-0.7); Absolute Neutrophil Count 4.38 k/cumm (1.2-6.7); Basophils % 0.5; Eosinophils % 0.5; HCT 32.6 % (36.0-46.0); HGB 11.1 g/dL (12.0-15.5); Immature Grans % 0.5 %; Lymphocytes % 15.6; Mean Corpuscular Hemoglobin 31.9 pg (27.0-33.0); Mean Corpuscular Volume 93.7 fL (80-95); Mean Platelet Volume 9.2 fL (8.0-11.0); Neutrophils % 76.9; Platelet Count 225 x1000/uL (130-400); RBC 3.48 m/cumm (4.00-5.20); RBC Distribution Width 12.3 % (11.7-14.6)
[2019-07-08 17:18] LABS: TSH (W/Ref FT4) 1.45 uIU/mL (0.36-3.74)
== END 2019-07-08 16:04 ==
PROVIDERS: PCP Family Medicine; Visit Provider Obstetrics & Gynecology
DX: Z34.92 Encounter for supervision of normal pregnancy, unspecified, second trimester (principal); Z85.71 Personal history of Hodgkin lymphoma
CPT/HCPCS: 82950; 84443; 85025

== ENCOUNTER 2019-07-16 08:09 | Outpatient (CLI) | payer BC, SELFPAY ==
[2019-07-16 08:42] LABS: TSH (W/Ref FT4) 2.78 uIU/mL (0.36-3.74)
[2019-07-16 09:57] LABS: Glucose 1 Hour 155 mg/dL
[2019-07-16 11:56] LABS: Glucose 3 Hour 75 mg/dL
[2019-07-16 13:47] LABS: FREE T4 0.85 ng/dL (0.76-1.46)
== END 2019-07-16 08:29 ==
PROVIDERS: PCP Family Medicine; Visit Provider Obstetrics & Gynecology
DX: O99.810 Abnormal glucose complicating pregnancy (principal)
CPT/HCPCS: 82951; 84439; 84443

== ENCOUNTER 2019-07-23 02:25 | Outpatient (CLI) | payer BC, SELFPAY ==
--- NOTE | 2019-07-23 08:45 | DI.US_ITS ---
EXAM: US OB DL WEIGHT CLINICAL HISTORY: Size greater than dates, Z34.90. TECHNIQUE: Transabdominal obstetrical ultrasound performed. COMPARISON: US US OB transvaginal from 06/05/2018 FINDINGS: Number of fetuses: One. position: Vertex. heart rate: 143 bpm. Placental location: anterior. No evidence of previa. BIOMETRIC DATA: BPD: 83 millimeters, 33 weeks 2 days HC 302 millimeters, 33 weeks 4 days, 98th percentile AC 272 millimeters, 31 weeks 2 days FL 58 millimeters, 30 weeks 2 days EFW: 1749 grms 90% Composite Age: 32 weeks 1 day EDC: 16 September 2019 Amniotic fluid index: 20.8 cm. Amount of fluid is within normal limits. IMPRESSION: size and weight as well as DL are in the high normal range. DATA REPOSITORY:
== END 2019-07-23 02:45 ==
PROVIDERS: PCP Family Medicine; Visit Provider Obstetrics & Gynecology
DX: O26.843 Uterine size-date discrepancy, third trimester (principal); Z3A.32 32 weeks gestation of pregnancy
CPT/HCPCS: 76816

== ENCOUNTER 2019-08-23 00:47 | Outpatient (CLI) | payer BC, SELFPAY ==
--- NOTE | 2019-08-23 12:45 | DI.US_ITS ---
EXAM: US OB DL WEIGHT CLINICAL HISTORY: HIGH RISK . LGA Z34.90 SUPERVISION NORMAL . TECHNIQUE: Transabdominal obstetrical ultrasound performed. COMPARISON: US US OB DL WEIGHT from 07/23/2019 FINDINGS: Transabdominal obstetrical ultrasound performed. There is a single living intrauterine gestation. The estimated sonographic age is 35 weeks 6 days. Estimated weight is 2597 g. This is the 73rd percentile. The placenta is anterior without [place] dence of previa. The fetus is in the cephalic presentation. heart rate is 147 beats per minute. A complete fet al anatomic evaluation was not performed at this time. Amniotic fluid index is 19 cm. Visually the amniotic fluid appears within normal limits. IMPRESSION: 1. Single live intrauterine gestation as above. 2. Estimated gestational age is 35 weeks 6 days. DATA REPOSITORY:
== END 2019-08-23 01:07 ==
PROVIDERS: PCP Family Medicine; Visit Provider Obstetrics & Gynecology
DX: O26.843 Uterine size-date discrepancy, third trimester (principal); Z3A.35 35 weeks gestation of pregnancy
CPT/HCPCS: 76816

== ENCOUNTER 2019-09-06 08:27 | Outpatient (CLI) | payer BC, SELFPAY | END 2019-09-06 08:47 | PROVIDERS: PCP Family Medicine; Visit Provider Obstetrics & Gynecology | DX: R69 Illness, unspecified (principal) | CPT/HCPCS: 59025 ==

== ENCOUNTER 2019-09-06 10:39 | Outpatient (REF) | payer BC, SELFPAY | END 2019-09-06 10:59 | LOC: LBN 10:39 | PROVIDERS: PCP Family Medicine; Visit Provider Obstetrics & Gynecology | DX: Z34.93 Encounter for supervision of normal pregnancy, unspecified, third trimester (principal); Z36.85 Encounter for antenatal screening for Streptococcus B | CPT/HCPCS: 87081 ==

== ENCOUNTER 2019-09-13 09:11 | Outpatient (CLI) | payer BC, SELFPAY | END 2019-09-13 09:31 | PROVIDERS: PCP Family Medicine; Visit Provider Obstetrics & Gynecology Gynecology | DX: O09.523 Supervision of elderly multigravida, third trimester (principal); Z3A.36 36 weeks gestation of pregnancy | CPT/HCPCS: 59025 ==

== ENCOUNTER 2019-09-21 08:29 | Outpatient (CLI) | payer BC, SELFPAY ==
[2019-09-22 01:43] LABS: COVID-19 RT-PCR UVMMC Result Negative (Negative)
== END 2019-09-21 08:49 ==
PROVIDERS: PCP Family Medicine; Visit Provider Obstetrics & Gynecology
DX: Z34.90 Encounter for supervision of normal pregnancy, unspecified, unspecified trimester (principal)
CPT/HCPCS: U0003

== ENCOUNTER 2019-09-21 09:51 | Outpatient (CLI) | payer BC, SELFPAY | END 2019-09-21 10:11 | PROVIDERS: PCP Family Medicine; Visit Provider Obstetrics & Gynecology | DX: O09.523 Supervision of elderly multigravida, third trimester (principal); Z3A.38 38 weeks gestation of pregnancy | CPT/HCPCS: 59025 ==

== ENCOUNTER 2019-09-26 14:35 | Inpatient (IN) | payer BC, SELFPAY ==
[2019-09-26] MEDS: Dinoprostone-CERVICAL 10 MG VSUPP VG (18:16)
[2019-09-26] MEDS: Zolpidem 5 MG TAB 10 MG PO (22:05)
[2019-09-27 06:52] LABS: HCT 34.5 % (36.0-46.0); HGB 11.8 g/dL (12.0-15.5); Mean Corp. HGB Concentration 34.2 g/dL (32.0-36.0); Mean Corpuscular Hemoglobin 32.2 pg (27.0-33.0); Mean Platelet Volume 9.1 fL (8.0-11.0); Platelet Count 197 x1000/uL (130-400); RBC 3.67 m/cumm (4.00-5.20); RBC Distribution Width 12.9 % (11.7-14.6); White Blood Cell Count 5.51 k/cumm (4.4-10.8)
[2019-09-27] MEDS: Lactated Ringers 1,000 ML 125 ML IV ×2 (09:24→18:16)
[2019-09-27] MEDS: Oxytocin/Normal Saline 30 UNITS/500 ML BAG IV (09:24)
[2019-09-27] MEDS: Lactated Ringers 500 ML IV (16:40)
[2019-09-27] MEDS: FentaNYL/ROPIvacaine 2 mcg/ml and 0.1% 200 ML CADD Cassette EP (17:20)
[2019-09-28] MEDS: miSOPROStol 200 MCG TAB 400 MCG SL (02:20)
[2019-09-28] MEDS: Methylergonovine 0.2 MG/ML VIAL (02:25)
[2019-09-28] MEDS: Acetaminophen 325 MG TAB 650 MG PO ×4 (04:20→20:01)
[2019-09-28] MEDS: Lactated Ringers 1,000 ML 125 ML IV (04:35)
[2019-09-28] MEDS: Ibuprofen 600 MG TAB PO ×3 (05:32→18:36)
[2019-09-28] MEDS: Docusate Sodium 100 MG CAP PO (18:37)
[2019-09-29] MEDS: Ibuprofen 600 MG TAB PO ×2 (01:12→07:55)
[2019-09-29] MEDS: Acetaminophen 325 MG TAB 650 MG PO ×2 (01:12→06:50)
--- NOTE | 2019-09-29 09:30 | W.PM.PROGNOT ---
Date of Service Date of service: 09/29/19 Time of Service: 09:30 Assessment and Plan Assessment and plan (1) (normal spontaneous vaginal delivery): Status: Acute Assessment and plan: Uncomplicated course. Plan for discharge home today. Subjective Subjective Interval history since last seen: Doing well. No problems this morning Minimal lochia Desires discharge home. Objective Objective Clinical Data: Vital Signs Pain Level 6 09/29/19 07:55 Intake & Output 09/28/19 09/28/19 09/29/19 11:59 23:59 11:59 Intake Total 999 Balance 999 Intake: IV 999 Laboratory Results WBC 5.51 k/cumm (4.4-10.8) 09/26/19 06:40 RBC 3.67 m/cumm (4.00-5.20) L 09/26/19 06:40 Hgb 11.8 g/dL (12.0-15.5) L 09/26/19 06:40 Hct 34.5 % (36.0-46.0) L 09/26/19 06:40 MCV 94.0 fL (80-95) 09/26/19 06:40 MCH 32.2 pg (27.0-33.0) 09/26/19 06:40 MCHC 34.2 g/dL (32.0-36.0) 09/26/19 06:40 RDW 12.9 % (11.7-14.6) 09/26/19 06:40 Plt Count 197 x1000/uL (130-400) 09/26/19 06:40 MPV 9.1 fL (8.0-11.0) 09/26/19 06:40 Patient ABO/Rh O Positive 09/27/19 06:40 Antibody Screen Negative 09/27/19 06:40
--- NOTE | 2019-09-29 10:04 | W.PM.HP.N ---
Date of service: 09/27/19 Time of Service: 18:00 Assessment and Plan Assessment and plan (1) Advanced maternal age (AMA) in : Status: Acute Assessment and plan: Admit for IOL at term. Will start with cervical ripening overnight with cervidil. History of Present Illness History of Present Illness Chief Complaint: AMA. 39 weeks Narrative: 39 year old admitted at 39 weeks gestation for induction of labor secondary to AMA. The patient's course has been uncomplicated with the exception of hypothyroidism. Her medical history is significant for Hodgkins Lymphoma in the past. Review of Systems All systems reviewed & are unremarkable except as noted in HPI and below [facility] Medical History (Updated 09/29/19 @ 09:31 by Onesimo Kat MD) Anxiety (Chronic 08/07/15) Carpal tunnel syndrome on both sides (Suspected 08/26/16) Ectopic (Inactive) Gastroesophageal reflux disease (Chronic) Herniated intervertebral disc of lumbar spine (Resolved) radiculopathy, pain, numbness in foot; PT at [facility] has improved pain, resolved numbeness, and allows for improved ambulation Hodgkin's disease in remission (Resolved) Hodgkin's disease of lymph nodes of multiple sites (Resolved[place] [facility] [place] (Resolved) 11/30/11--Dr. Santoyo; Left great toe; giant cell tumor of tendon sheath, localized type. Miscarriage within last 12 months (Inactive) Missed (Acute 10/31/17) Missed with demise before 20 completed weeks of gestation (Acute) Neuropathy (Chronic 06/20/16) (Resolved) Rash (Acute) Thrombophlebitis of superficial veins of lower extremity (Resolved) left arm x 2 Surgical History (Updated 06/10/18 @ 06:31 by Nancy Trejo) EGD - MAC (07/02/11) DR. 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 Pets and animals: No Sexually active: Yes Do you think of yourself as: straight/heterosexual Current gender identity: female What is your relationship status?: How often do you talk on the phone with friends or family?: once per week How often do you get together with friends or relatives?: three or more times per week How often do you attend buddhism or yarsani services?: 1-3 times per year Do you belong to any clubs or organized social groups?: no Panel score (0-1 are the most socially isolated patients): 2 What type of physical activity do you participate in: walking and running Duration: 30-45 minutes/day Frequency: 5-6 times per week Allyson/Lutheran: Sabianist Special allyson needs: No Seatbelt use: always Helmet use: Yes Helmet use: always Drive intox or ride w/intox transfer driver: No Do you feel safe at home: Yes Do you feel safe in your relationship?: Yes History History 7 Para 2 Hx # Term Pregnancies 2 Multiple births Hx # Pregnancies Ectopic pregnancies 2 AB induced Hx Number of Living Children 2 AB spontaneous 1 Past Pregnancies Del. Date GA/Weeks # Outcome Route Wgt Sex Labor Lgth Anesthesia Location Prov Complic 07/08/09 40 Successful vaginal 9 lb 3 oz Female 10 hours Photo Stylist 10/19/14 40 No Successful vaginal 7 lb 13 oz Female 12 regional 05/30/18 Unsuccessful 11/07/[address] Kat Delivery Date: 07/08/09 No notes to display Delivery Date: 10/19/14 No notes to display Delivery Date: 05/30/18 Pt was dx with an ectopic and was given Methotrexate in the ER on 05/30/18.Pt Quant was 8007 Pt will repeat her Quant this week. Jory Ferrari LPN Delivery Date: 11/07/18 D/C Jory Ferrari LPN Meds Home Medications and Allergies Home Medications Medication Instructions Recorded Confirmed Type Vitamin B6 50 mg PO DAILY 10/02/16 09/27/19 History PNV cmb#95-ferrous fumarate-FA 1 tab PO DAILY 06/10/18 09/27/19 History [] aspirin 81 mg tablet,delayed 81 mg PO DAILY 03/12/19 09/27/19 History release docusate sodium 100 mg capsule 100 mg PO PRN PRN 03/12/19 09/27/19 History famotidine 20 mg tablet 20 mg PO DAILY 03/12/19 09/27/19 History melatonin 3 mg capsule 3 mg PO HS PRN 03/30/19 09/27/19 History ferrous sulfate 325 mg (65 mg 325 mg PO BID #60 tab 05/04/19 09/27/19 Rx iron) tablet fluticasone propionate 50 2 spray ANTHONY DAILY #47.4 gm 05/12/19 09/27/19 Rx mcg/actuation nasal spray,suspension levothyroxine 25 mcg capsule 25 mcg PO DAILY #60 cap 06/30/19 09/27/19 Rx pantoprazole 20 mg tablet,delayed 20 mg PO DAILY #60 tab 06/30/19 09/27/19 Rx release Allergies Allergy/AdvReac Type Severity Reaction Status Date / Time No Known Drug Allergies Allergy Verified 09/27/19 08:27 Exam Other: Cx 2/50/-2 Results Labs Result diagrams: 09/26/19 06:40 COVID-19 Screening Have you,or household,traveled outside [place] in last 14 days?: TRAVEL NO
== END 2019-09-29 12:25 | disposition home or self-care (01) | DRG 807 ==
PROVIDERS: Admitting Provider Obstetrics & Gynecology; PCP Family Medicine; Visit Provider Obstetrics & Gynecology
DX: O72.1 Other immediate postpartum hemorrhage (principal); Z37.0 Single live birth; O09.523 Supervision of elderly multigravida, third trimester; O99.284 Endocrine, nutritional and metabolic diseases complicating childbirth; Z3A.39 39 weeks gestation of pregnancy; E03.9 Hypothyroidism, unspecified; Z67.40 Type O blood, Rh positive; Z85.71 Personal history of Hodgkin lymphoma; Z87.59 Personal history of other complications of pregnancy, childbirth and the puerperium
CPT/HCPCS: 36415; 85027; 86850; 86900; 86901; 99223; 99233; 59200; J2210

== ENCOUNTER 2019-11-05 08:55 | Outpatient (REF) | payer BC, SELFPAY ==
[2019-11-05 09:36] LABS: TSH (W/Ref FT4) 1.89 uIU/mL (0.36-3.74)
== END 2019-11-05 09:15 ==
LOC: LBN 08:55
PROVIDERS: PCP Family Medicine; Visit Provider Obstetrics & Gynecology
DX: E03.9 Hypothyroidism, unspecified (principal)
CPT/HCPCS: 84443

== ENCOUNTER 2020-12-29 03:25 | Outpatient (CLI) | payer BC, SELFPAY ==
[2020-12-29 08:21] LABS: HCT 39.5 % (36.0-46.0); MCH 30.6 pg (27.0-33.0); MCHC 32.9 % (32.0-36.0); MCV 92.9 fL (80-95); Platelet Count 255 10^3/uL (130-400); RBC 4.25 10^6/uL (3.93-5.22); RDW 11.5 % (11.7-14.6); RDW-SD 39.5 fL; WBC 2.98 10^3/uL (4.4-10.8)
[2020-12-29 08:56] LABS: Hemoglobin A1C 4.9 % (<5.7)
[2020-12-29 09:45] LABS: ALT 27 U/L (14-59); AST 17 U/L (15-37); Albumin 4.3 g/dL (3.4-5.0); Alkaline Phosphatase 46 U/L (46-116); Anion Gap 6.4 mmol/L (3-11); BUN 18 mg/dL (7-18); Bilirubin, Total 0.5 mg/dL (0.2-1.0); CO2 27.6 mmol/L (21.0-32.0); CREATININE 0.7 mg/dL (0.55-1.02); Calcium 8.9 mg/dL (8.5-10.1); Chloride 107 mmol/L (98-107); Cholesterol 157 mg/dL (<200); Glucose 81 mg/dL (74-106); HDL Cholesterol 80 mg/dL (40-60); Potassium 4.7 mmol/L (3.5-5.1); Sodium 141 mmol/L (136-145); TSH (W/Ref FT4) 2.11 uIU/mL (0.36-3.74); Total Protein 6.9 g/dL (6.4-8.2)
[2020-12-29 10:00] LABS: Triglyceride < 25 mg/dL (<150); Vitamin B12 > 2000 pg/mL (193-986)
[2020-12-29 10:14] LABS: LDL CHOLESTEROL 67 mg/dL (<100)
[2021-01-01 01:44] LABS: Vitamin D 25 Total 30.4 ng/mL (30-100)
== END 2020-12-29 03:26 | disposition home or self-care (01) ==
LOC: LBO 03:25
PROVIDERS: PCP Family Medicine; Visit Provider Family Medicine
DX: Z00.00 Encounter for general adult medical examination without abnormal findings (principal)
CPT/HCPCS: 36415; 80053; 80061; 82306; 83721; 85027; 82607; 83036; 84443

== ENCOUNTER 2022-01-07 15:57 | Outpatient (REF) | payer BC, SELFPAY ==
--- NOTE | 2022-01-07 15:20 | PAPFT_PTH ---
PATIENT: Chasity Gallo LOC: [facility] U#:[id number] AGE/SX: 41/F ROOM: RE01/07/[address]: Serena Bowser DO : 1980 BED: DIS: 01/07/2022 SPEC #: [id number] RECD: 01/08/22 12:45 STATUS: LASHAE REQ #: [id number] ANCELMO: 01/07/22 15:[address]: Serena Bowser DEPT: [facility] Cytology RECD BY: Babita Malcolm ENTERED: 01/08/22 12:46 SP TYPE: PAPFT OTHR DR: Arabella Villarreal MD, DC Tissues: 1 - CX/ENDOCX FOR PAP SMEARS Procedures: PAP THIN PREP/UVM Screening HPV DNA PROBE Comments:
== END 2022-01-07 15:58 | disposition home or self-care (01) ==
LOC: LBN 15:57
PROVIDERS: PCP Family Medicine; Visit Provider Obstetrics & Gynecology
DX: Z12.4 Encounter for screening for malignant neoplasm of cervix (principal); Z11.51 Encounter for screening for human papillomavirus (HPV)
CPT/HCPCS: 88142; 87624

== ENCOUNTER 2022-08-26 02:36 | Outpatient (CLI) | payer BC, SELFPAY ==
--- NOTE | 2022-08-26 07:15 | DI.MAMMO_ITS ---
Exam(s) MAMMO SCREENING EXAM: MAMMO SCREENING CLINICAL HISTORY: screening,z12.39,[facility], z00.00 TECHNIQUE: Bilateral full field digital CC and MLO mammographic images were obtained with 3D tomosyn thesis and utilizing computer aided detection (CAD). COMPARISON: This is a baseline examination. FINDINGS: Masses/Architectural Distortion: None seen. Microcalcifications: No suspicious pleomorphic-type are seen. Skin Thickening/Nipple Retraction: None. IMPRESSION: 1. No significant interval change with no specific features of malignancy noted. 2. Unless there is more urgent need, screening mammography is recommended, as per [place] [employer]ety guidelines. BI-RADS Category 1 - Negative Breast Density - Category C - Heterogeneously dense Breast density category C or D implies that the patient has dense breast tissue. Dense breast tissue is very common and is not abnormal but dense breast tissue can make it harder to find cancer on a ma mmogram. Also, dense breast tissue may increase their breast cancer risk. This information about the result of the mammogram report was provided to the patient to raise their awareness. Use this report when you speak with the patient about their risks for breast cancer, which includes their family hist ory. At that time, you may recommend for more screening tests (Ultrasound or MRI) as they might be us eful based on their risk. A negative radiographic report should not delay biopsy if a dominant or clinically suspicious mass is present. Up to ten percent of cancers are not identified on mammography. A negative report may reinforce clinical impression. Adenosis and dense breasts may obscure an underlying neoplasm. False positive reports average 6 to 10%. Patient will receive a letter notifying them of these results.
== END 2022-08-26 02:56 ==
LOC: DI 02:37
PROVIDERS: PCP Family Medicine; Visit Provider Obstetrics & Gynecology
DX: Z12.31 Encounter for screening mammogram for malignant neoplasm of breast
CPT/HCPCS: 77063; 77067

== ENCOUNTER 2023-03-12 03:01 | Outpatient (CLI) | payer BC, SELFPAY ==
[2023-03-12 07:48] LABS: HCT 37.6 % (36.0-46.0); HGB 12.6 g/dL (11.2-15.7); MCH 30.3 pg (27.0-33.0); MCHC 33.5 % (32.0-36.0); MCV 90 fL (80-95); MPV 8.9 fL (8.0-11.0); Platelet Count 270 10^3/uL (130-400); RBC 4.16 10^6/uL (3.93-5.22); RDW 12.1 % (11.7-14.6); RDW-SD 40.2 fL; WBC 3.05 10^3/uL (4.4-10.8)
[2023-03-12 09:15] LABS: Vitamin D 25 Total 39.7 ng/mL (30-100)
[2023-03-12 09:17] LABS: ALT 25 U/L (14-59); AST 18 U/L (15-37); Albumin 3.8 g/dL (3.4-5.0); Alkaline Phosphatase 35 U/L (46-116); Anion Gap 5.9 mmol/L (3-11); BUN 21 mg/dL (7-18); Bilirubin, Total 0.5 mg/dL (0.2-1.0); CO2 29.1 mmol/L (21.0-32.0); CREATININE 0.9 mg/dL (0.55-1.02); Calculated LDL 76 mg/dL (<100); Chloride 106 mmol/L (98-107); Cholesterol 158 mg/dL (<200); Estimated GFR 81.86 (mL/min/1.73m2); Glucose 93 mg/dL (74-106); HDL Cholesterol 77 mg/dL (40-60); Sodium 141 mmol/L (136-145); TSH (W/Ref FT4) 2.15 uIU/mL (0.36-3.74); Total Protein 6.7 g/dL (6.4-8.2); Triglyceride 29 mg/dL (<150)
== END 2023-03-12 03:02 | disposition home or self-care (01) ==
LOC: LBO 03:31
PROVIDERS: PCP Family Medicine; Visit Provider Family Medicine
DX: Z00.00 Encounter for general adult medical examination without abnormal findings (principal); I10 Essential (primary) hypertension; E03.9 Hypothyroidism, unspecified
CPT/HCPCS: 36415; 80053; 80061; 82306; 85027; 84443

== ENCOUNTER → 2023-08-04 03:24 | Outpatient (CLI) | payer BC, SELFPAY ==
--- NOTE | 2023-08-04 08:15 | DI.RAD_ITS ---
Exam(s) XR KNEE LT 3V AP,LAT,DEBRA EXAM: XR KNEE LT 3V AP,LAT,DEBRA CLINICAL HISTORY: b/l knee pain, M25.562. TECHNIQUE: 2D digital imaging was performed of the left knee. Three images were obtained. AP, late ral and PA tunnel views were obtained. COMPARISON: No priors for comparison. FINDINGS: BONES: No acute fracture is present. No bony destructive lesion is seen. JOINTS: The knee is normally aligned. No joint effusion is seen. No loose body. SOFT TISSUE: Normal. IMPRESSION: Normal radiographs of the left knee. DATA REPOSITORY: RADIATION DOSE DELIVERED:
--- NOTE | 2023-08-04 08:15 | DI.RAD_ITS ---
Exam(s) XR KNEE RT 3V AP,LAT,DEBRA EXAM: XR KNEE RT 3V AP,LAT,DEBRA CLINICAL HISTORY: b/l knee pain, M25.561. TECHNIQUE: 2D digital imaging was performed of the right knee. Three views obtained. AP, lateral an d PA tunnel views were obtained. COMPARISON: No exams were available for comparison FINDINGS: BONES: No acute fracture is present. No bony destructive lesion is seen. JOINTS: The knee is normally aligned. No joint effusion is seen. SOFT TISSUE: Normal. IMPRESSION: Unremarkable radiographs of the right knee. DATA REPOSITORY: RADIATION DOSE DELIVERED:
== END ==
PROVIDERS: PCP Family Medicine; Visit Provider Family Medicine
DX: M25.561 Pain in right knee (principal); M25.562 Pain in left knee
CPT/HCPCS: 73562

== ENCOUNTER 2024-04-07 01:03 | Outpatient (CLI) | payer BC, SELFPAY ==
--- OUTSIDE RECORDS SUMMARY | 2024-04-07 01:39 | XMS_ITS | Encounter Summary ---
[place] [address] Care Team Providers Care Tdp Displays Analyst Name Role Phone Arabella Villarreal MD Primary Care Provider [phone] Encounter Details Date Type Department Care Team (Late st Contact Info) Description 05/07/2019 9:48 AM EST - 05/07/2019 11:59 PM EST Hospital [place] [id number] David Clements MD [address] [place] [id number] Personal history of Hodgkin's disease; Elderly multigravida with antepartum condition or complication Discharge Disposition: Home Social History Tobacco Use Types Packs/Day Years Used Date Smoking Tobacco: Never Smokeless Tobacco: Never Alcohol Use Standard Drinks/Week Comments No 0 (1 standard drink = 0.6 oz pur e alcohol) Comments Yes Sex and Gender Information Value Date Recorded Sex Assigned at Not on file Gender Identity Not on file Sexual Orientation Not on file documented as of this encounter Medications at Time of Discharge Medication Sig Dispensed Refills Start Date End Date famotidine (Pepcid) 20 mg Tablet Take 20 mg by mouth 2 times daily. FLUTICASONE PROPIONATE (FLONASE ALLERGY RELIEF NASL) by Nasal route. Lysine HCl 500 mg TabIndications:Cold sores Take 500 mg by mouth 2 times daily. Reported on 03/18/2016 Indications: Cold sores ferrous sulfate 325 mg (65 mg iron) Tablet TK 1 T PO BID 05/04/2019 04/02/2022 levothyroxine (Synthroid) 25 mcg Tablet TK 1 T PO QD UTD 03/28/2019 04/02/2022 pantoprazole EC (Protonix) 20 mg Tablet, Delayed Release (E.C.) TK 1 T PO D 03/12/2019 04/02/2022 aspirin EC 81 mg Tablet, Delayed Release (E.C.) Take 81 mg by mouth daily. 04/02/2022 pyridoxine, vitamin B6, (B-6) 100 mg Tablet Take 100 mg by mouth daily. 04/02/2022 ranitidine (ZANTAC) 150 mg tabletIndications:ga stroesophageal reflux disease Take 150 mg by mouth daily as needed. Indications: Gastroesophageal Reflux 04/02/19 23 vitamin 27 & [id number] 60 mg iron-1 mg tablet Take 1 tablet by mouth daily. 04/02/2022 documented as of this encounter Plan of Treatment Not on file documented as of this encounter Procedures Procedure Name Priority Date/Time Associated Diagnosis Comments US OB DETAILED MORPHOLOGY Routine 05/07/2019 11:47 AM EST Personal history of Hodgkin's disease Elderly multigravida with antepartum condition or complication documented in this encounter Results * US OB Detailed Morphology (05/07/2019 11:47 AM EST) Anatomical Region Laterality Modality Pelvis, Abdomen Ultrasound 05/07/2019 11:1 7 AM EST Impressions 05/07/2019 12:11 PM EST 2nd Trimester - Detailed Morphology - Summary Single intrauterine with a gestational age of 18w 5d based on Clinical TOMEKA Composite age based on the current ultrasound alone is 19w 3d. Current growth parameters are consistent with prior dating indicating normal growth. Amniotic fluid volume is Normal Detailed anatomic evaluation was performed an echogenic intracardic foci was seen and no other structural abnormalities are noted. ? Renate Malcolm, Staff Physician Electronically Signed Final Report ?? 05/07/2019 12:11 pm Narrative 05/07/2019 12:11 PM EST OBSTETRICS REPORT ?(Signed Final 05/07/2019 12:11 pm) PATIENT INFO: ID #: ? [id number] ?: ??[birth year] (38 yrs) Name: ? VIDHI PEREZ ?Visit Date: 05/07/2019 11:17 am PERFORMED BY: Performed By: ? Mone Stuart RDMS Attending: ?Gold ROBERTS, Renate Rinaldi Referred By: ?DAVID CLEMENTS Location: ? [place] SERVICE(S) PROVIDED: ??UM - Detailed Morphology - [id number] ? [id number] INDICATIONS: ??18 weeks gestation of ?Z3A.18 ??hx of hodgkins disease , ama VITAL SIGNS: Weight (lb): 181.0 Height: ?5'6 ?BMI: ?29.21 EVALUATION: Num Of Fetuses: ?1 Heart Rate(bpm): ?? 155 Cardiac Activity: ?Observed, normal rhythm Presentation: ?Cephalic Placenta: ?Anterior P. Cord Insertion: ? Within Normal Limits Amniotic Fluid DL FV: ?Normal --------- BIOMETRY: --------- BPD: ?45.8 ??mm ? G.Age: ?? 19w 6d OFD: ?60.9 ??mm HC: ?171.2 ??mm ? G.Age: ?? 19w 5d AC: ?143.2 ??mm ? G.Age: ?? 19w 4d FL: ? 27.6 ??mm ? G.Age: ?? 18w 3d HUM: ?29.8 ??mm ? G.Age: ?? 19w 6d CER: ?20.4 ??mm ? G.Age: ?? 19w 3d NFT: ? 3.4 ??mm CM: ?4.6 ??mm CI: ?75.2 ??% ? 70 - 86 FL/HC: ? 16.1 ??% ? 16.1 - 18.3 HC/AC: ? 1.20 ?1.09 - 1.39 FL/BPD: ?60.3 ??% FL/AC: ? 19.3 ??% ? 20 - 24 Est. FW: ? 278 ?? gm ?? 0 lb 10 oz GESTATIONAL AGE: Clinical TOMEKA: ??18w 5d ?TOMEKA: ?? 10/03/19 U/S Today: ? 19w 3d ?TOMEKA: ?? 09/28/19 Best: ?18w 5d ?? Det. By: ??Clinical TOMEKA ? TOMEKA: ?? 10/03/19 TARGETED ANATOMY: Central Nervous System Calvarium/Cranial V.: ??Within Normal Limits Intracranial Esther: ? Within Normal Limits Cavum: ? Within Normal Limits Parenchyma: ?Within Normal Limits Lateral Ventricles: ?Within Normal Limits Choroid Plexus: ?Within Normal Limits Cereb./Vermis: ? Within Normal Limits Cisterna Magna: ?Within Normal Limits Midline Falx: ?Within Normal Limits Spine Cervical: ?Visualized Thoracic: ?Visualized Lumbar: ?Visualized Sacral: ?Visualized Shape/Curvature: ? Visualized Head/Neck Face: ?Within Normal Limits Lips: ?Within Normal Limits Neck: ?Within Normal Limits Nuchal Fold: ? Within Normal Limits Nasal Bone: ?Present Profile: ? Visualized Orbits/Eyes: ? Visualized Mandible: ?Visualized Maxilla: ? Visualized Thorax Thoracic Contour: ?Within Normal Limits Lungs: ? Visualized 4 Chamber View: ?Echogenic intracardi Cardiac Motion: ?Normal Rhythm Rt Outflow Tract: ?Visualized Lt Outflow Tract: ?Visualized Aortic Arch: ? Visualized Ductal Arch: ? Visualized SVC: ? Visualized Cardiac Calhan: ?Visualized Diaphragm: ? Visualized 3 Vessel View: ? Visualized IVC: ? Visualized Crossing: ?Visualized Abdomen Ventral Wall: ?Visualized Cord Insertion: ?Visualized Situs: ? Normal Stomach: ? Visualized Liver: ? Visualized Lt Kidney: ? Visualized Rt Kidney: ? Visualized Bladder: ? Visualized Bowel: ? Visualized Extremities Lt Humerus: ?Within Nomal Limits Rt Humerus: ?Within Normal Limits Lt Forearm: ?Within Normal Limits Rt Forearm: ?Within Normal Limits Lt Hand: ? Within Normal Limits Rt Hand: ? Within Normal Limits Lt Femur: ?Within Normal Limits Rt Femur: ?Within Normal Limits Lt Lower Leg: ?Within Normal Limits Rt Lower Leg: ?Within Normal Limits Lt Foot: ? Visualized Rt Foot: ? Visualized Other Umbilical Cord: ?3 vessel cord Genitalia: ? Male CERVIX UTERUS ADNEXA: Left Ovary Size(cm) ? 2.7 ??x ?? 2.2 ?x ??2.6 ? Vol(ml): 7.9 Visualized Right Ovary Size(cm) ? 2.2 ??x ?? 2.3 ?x ??1.7 ? Vol(ml): 4.5 Visualized Cul De Sac No fluid seen Adnexa No adnexal masses Procedure Note Renate Malcolm MD - 05/07/2019 OBSTETRICS REPORT (Signed Final 05/07/2019 12:11 pm) PATIENT INFO: ID #: [id number] : [birth year] (38 yrs) Name: VIDHI PEREZ Visit Date: 05/07/2019 11:17 am PERFORMED BY: Performed By: Mone Stuart RDMS Attending: Renate Malcolm MD Referred By: DAVID CLEMENTS Location: [place] SERVICE(S) PROVIDED: [facility] - Detailed Morphology - [id number] INDICATIONS: 18 weeks gestation of Z3A.18 hx of hodgkins disease , ama VITAL SIGNS: Weight (lb): 181.0 Height: 5'6 BMI: 29.21 EVALUATION: Num Of Fetuses: 1 Heart Rate(bpm): 155 Cardiac Activity: Observed, normal rhythm Presentation: Cephalic Placenta: Anterior P. Cord Insertion: Within Normal Limits Amniotic Fluid DL FV: Normal --------- BIOMETRY: --------- BPD: 45.8 mm G.Age: 19w 6d OFD: 60.9 mm HC: 171.2 mm G.Age: 19w 5d AC: 143.2 mm G.Age: 19w 4d FL: 27.6 mm G.Age: 18w 3d HUM: 29.8 mm G.Age: 19w 6d CER: 20.4 mm G.Age: 19w 3d NFT: 3.4 mm CM: 4.6 mm CI: 75.2 % 70 - 86 FL/HC: 16.1 % 16.1 - 18.3 HC/AC: 1.20 1.09 - 1.39 FL/BPD: 60.3 % FL/AC: 19.3 % 20 - 24 Est. FW: 278 gm 0 lb 10 oz GESTATIONAL AGE: Clinical TOMEKA: 18w 5d TOMEKA: 10/03/19 U/S Today: 19w 3d TOMEKA: 09/28/19 Best: 18w 5d Det. By: Clinical TOMEKA TOMEKA: 10/03/19 TARGETED ANATOMY: Central Nervous System Calvarium/Cranial V.: Within Normal Limits Intracranial Esther: Within Normal Limits Cavum: Within Normal Limits Parenchyma: Within Normal Limits Lateral Ventricles: Within Normal Limits Choroid Plexus: Within Normal Limits Cereb./Vermis: Within Normal Limits Cisterna Magna: Within Normal Limits Midline Falx: Within Normal Limits Spine Cervical: Visualized Thoracic: Visualized Lumbar: Visualized Sacral: Visualized Shape/Curvature: Visualized Head/Neck Face: Within Normal Limits Lips: Within Normal Limits Neck: Within Normal Limits Nuchal Fold: Within Normal Limits Nasal Bone: Present Profile: Visualized Orbits/Eyes: Visualized Mandible: Visualized Maxilla: Visualized Thorax Thoracic Contour: Within Normal Limits Lungs: Visualized 4 Chamber View: Echogenic intracardi Cardiac Motion: Normal Rhythm Rt Outflow Tract: Visualized Lt Outflow Tract: Visualized Aortic Arch: Visualized Ductal Arch: Visualized SVC: Visualized Cardiac Calhan: Visualized Diaphragm: Visualized 3 Vessel View: Visualized IVC: Visualized Crossing: Visualized Abdomen Ventral Wall: Visualized Cord Insertion: Visualized Situs: Normal Stomach: Visualized Liver: Visualized Lt Kidney: Visualized Rt Kidney: Visualized Bladder: Visualized Bowel: Visualized Extremities Lt Humerus: Within Nomal Limits Rt Humerus: Within Normal Limits Lt Forearm: Within Normal Limits Rt Forearm: Within Normal Limits Lt Hand: Within Normal Limits Rt Hand: Within Normal Limits Lt Femur: Within Normal Limits Rt Femur: Within Normal Limits Lt Lower Leg: Within Normal Limits Rt Lower Leg: Within Normal Limits Lt Foot: Visualized Rt Foot: Visualized Other Umbilical Cord: 3 vessel cord Genitalia: Male CERVIX UTERUS ADNEXA: Left Ovary Size(cm) 2.7 x 2.2 x 2.6 Vol(ml): 7.9 Visualized Right Ovary Size(cm) 2.2 x 2.3 x 1.7 Vol(ml): 4.5 Visualized Cul De Sac No fluid seen Adnexa No adnexal masses IMPRESSION 2nd Trimester - Detailed Morphology - Summary Single intrauterine with a gestational age of 18w 5d based on Clinical TOMEKA Composite age based on the current ultrasound alone is 19w 3d. Current growth parameters are consistent with prior dating indicating normal growth. Amniotic fluid volume is Normal Detailed anatomic evaluation was performed an echogenic intracardic foci was seen and no other structural abnormalities are noted. Renate Malcolm, Staff Physician Electronically Signed Final Report 05/07/2019 12:11 pm David Clements MD [facility] OB ORDERABLES documented in this encounter Visit Diagnoses Diagnosis Personal history of Hodgkin's disease Elderly multigravida with antepartum condition or complication documented in this encounter Care Teams Tdp Displays Analyst Relationship Specialty Start Date End Date Arabella Villarreal MD [address] [place] [address] [address] PCP - General 09/16/11 documented as of this encounter
--- OUTSIDE RECORDS SUMMARY | 2024-04-07 01:39 | XMS_ITS | Encounter Summary ---
Author Organization [facility] Address [facility] [place] [address] Care Team Providers Care Shoveler Name Role Phone Arabella Villarreal MD Primary Care Provider [phone] Encounter Details Date Type Department Care Team (Latest Contact Info) Description 04/02/2022 Travel Social History Tobacco Use Types Packs/Day Years Used Date Smoking Tobacco: Never Smokeless Tobacco: Never Alcohol Use Standard Drinks/Week Comments No 0 (1 standard drink = 0.6 oz pur e alcohol) Sex and Gender Information Value Date Recorded Sex Assigned at Not on file Gender Identity Not on file Sexual Orientation Not on file documented as of this encounter Plan of Treatment Not on file documented as of this encounter Visit Diagnoses Not on filedocumented in this encounter Care Teams Shoveler Relationship Specialty Start Date End Date Arabella Villarreal MD [address] [place], [place] [id number] PCP - General 09/16/11 documented as of this encounter
--- OUTSIDE RECORDS SUMMARY | 2024-04-07 01:39 | XMS_ITS ---
Author Organization [facility] [place] [address] Care Team Providers Care Senior Data Architect Name Role Phone Arabella Villarreal MD Primary Care Provider [phone] Active Problems Problem Noted Date Diagnosed Date Hodgkin's lymphoma 10/05/2011 Overview (04/15/2012): STAGE IIA. Unfavorable. ESR >50 (68), and large mediastinal adenopathy (>10cm), and involvement of four or more lymph node regions. Indicator lesion#1: mediastinal mass 10.1 x 7.1cm #2: right supraclav: 3.4 x 3.6cm #3: retroclavicular 1.4 x 1.7cm Restaging 12/06/2011 Mediastinal mass 7.1 x 4.6cm (measured by Dr. Cruz) #2: 2.2 x 2.8 #3: resolved Restaging 04/10/2012 Mediastainal Mass 3.4 x 1.1cm (measured by Dr. Cruz) #2: 1.5 x 1 7cm #3: resolved Col Date: 09/25/2011 SURGICAL PATHOLOGY ---Pathologic Diagnosis--- Right neck mass biopsy ( A and B) : Classical Hodgkin Lymphoma, nodular sclerosis type. Head/neck: There are bilateral small hypermetabolic lower posterior cervical chain lymph nodes (level 5 b). Bilateral hypermetabolic supraclavicular nodes, right greater than left. On the right, the supraclavicular adenopathy is contiguous with the large superior mediastinal mass (see below). Chest: There is markedly hypermetabolic, conglomerate superior mediastinal, bilateral paratracheal, prevascular, and AP window adenopathy. No hilar adenopathy. The superior mediastinal mass produces mild leftward deviation of the trachea, without significant compression. There is no pulmonary nodule or mass, and no pleural or pericardial effusion. Abdomen/pelvis: An intensely hypermetabolic focus is seen in the region of the right ovary, better visualized on the contrast-enhanced CT obtained the previous day. Otherwise normal distribution of activity in the abdomen and pelvis. The spleen is normal in size and activity. Skeleton: There is mild diffuse increased marrow activity in the axial and visualized proximal appendicular skeleton, equal to or slightly greater in activity than the reference liver background. No focal osseous lesion is seen. Impression 1. Hypermetabolic bilateral cervical, supraclavicular, and mediastinal adenopathy, consistent with known diagnosis of Hodgkin lymphoma. 2. Hypermetabolic focus in the region of the right ovary, most likely physiologic in nature. Lymphomatous involvement is unlikely. 3. Mild diffuse increased marrow activity may be reactive, and diffuse involvement with lymphoma is felt to be less likely. Assessment & Plan (10/17/2011 11:12 AM EDT): -ECHO, PFTS were reviewed. Permissive for chemotherapy to begin -Start ABVD standard doses on protocol -patient signed consent -all questions answered at time of visit -RTC in 2 weeks Current Oncology Plans No current plan information found. Past Plans No past plan information found. Radiation Treatments * No radiation treatments are documented for this patient in [facility]. Treatments may have been administered in another system. Lifetime Dose Tracking * Chemical Lifetime Dose Automatic Entry Manual Entr y doxorubicin 326.09 mg/m2 (678 mg) 326.09 mg/m2 (678 m g) 0 mg/m2 (0 mg) bleomycin 273 Units 273 Units 0 Units
--- OUTSIDE RECORDS SUMMARY | 2024-04-07 01:39 | XMS_ITS | Encounter Summary ---
[place] [address] Care Team Providers Care Die Grinder Name Role Phone Arabella Villarreal MD Primary Care Provider [phone] Reason for Visit * Reason Comments Advanced Maternal Age [age] years old at ED D * Consultation (Routine) - Closed Specialty Diagnoses / Procedures Referred By Tc neil Referred To Contact Obstetrics and Gynecology Diagnoses HX OF HODGKIN'S DISEASE, Onesimo Olmedo MD [address] [place] [address] [facility] [address] [place] [address] Referral ID Status Reason Start Date Expiration Date V isits Requested Visits Authorized [id number] Closed Consult, [facility] PCP Updated and/or Approved 04/01/2019 03/31/2020 2 2 Encounter Details Date Type Department Care Team (Late st Contact Info) Description 05/07/2019 10:00 AM EST Office Visit Obstetrics [place] [address] Ponce Rose, [facility] ([address] OBSTETRICS & [place] [address] Maternal age 35+, multigravida, second trimester; Encounter for procreative genetic counseling Social History Tobacco Use Types Packs/Day Years Used Date Smoking Tobacco: Never Smokeless Tobacco: Never Alcohol Use Standard Drinks/Week Comments No 0 (1 standard drink = 0.6 oz pur e alcohol) Comments Yes Sex and Gender Information Value Date Recorded Sex Assigned at Not on file Gender Identity Not on file Sexual Orientation Not on file documented as of this encounter Progress Notes * Rose Ponce Nayan, [facility] - 05/07/2019 10:00 AM EST Genetic Counseling Note Chasity Gallo is a 38 y.o. female currently at 18w5d gestation. I met with Chasity for a 40 minute genetic counseling visit. She was accompanied to the visit by her , Nehemiah Gallo. Referring Provider: Onesimo Kat MD [address] [place] [address] [place] [address] Chief Complaint Patient presents with ??? Advanced Maternal Age [age] years old at TOMEKA Past Medical History: Diagnosis Date ??? Hodgkin's disease in remission 2011 ??? Leukopenia Family History Problem (# of Occurrences) Relation (Name,Age of Onset) Allergies (2) Brother, Daughter (Talia) Asthma (2) Brother, Daughter (Talia) Celiac Disease (1) Mother Colorectal Cancer (1) Maternal Grandmother Diabetes (2) Maternal Grandmother, Paternal Grandmother Esophageal Cancer (1) Maternal Grandfather GERD (2) Mother, Daughter (Talia) Hyperlipidemia (1) Daughter (Talia, 8): presumed hereditary hypercholesterolemia Hypertension (1) Paternal Grandfather Hypothyroidism (1) Mother (17): thyroidectomy Intellectual Disability (1) Paternal Uncle Irritable Bowel Syndrome (1) Mother Pancreatic Cancer (1) Father The reported family history was otherwise unremarkable for developmental or intellectual disability, congenital anomalies, or known genetic conditions. A pedigree was obtained and will be scanned into Chasity's electronic medical record. Chasity is of [place], French, [place], and Scandinavian ancestry. Nehemiah is of Uzbek, Vietnamese, and [place] ancestry. Consanguinity is denied. OB History Para Term AB Living 6 2 2 0 3 2 SAB TAB Ectopic Multiple Live Births 2 0 1 0 2 # Outcome Date GA Lbr Maurilio/2nd Weight Sex Delivery Anes PTL Lv 6 Current 5 SAB 11/07/18 4 Ectopic 05/30/18 3 SAB 11/01/17 2 Term 10/19/14 40w0d 3.544 kg (7 lb 13 oz) F Vag-Spont ARLEEN 1 Term 07/08/09 40w0d 4.167 kg (9 lb 3 oz) F Vag-Spont ARLEEN Patient's last menstrual period was 12/27/2018. Estimated Date of Delivery: 10/03/2019 based on menstrual dating supported by early ultrasound. Assessment 1. Advanced maternal age: The rate of meiotic nondisjunction resulting in aneuploidy increases withmaternal age. Chasity had the [employer] cell-free DNA screen, which reported a low probability (<1in 10,000) for trisomy 21, trisomy 18, and trisomy 13. She is scheduled for a detailed morphology ultrasound and maternal- medicine consultation today. Amniocentesis will be available if she desires diagnostic chromosome analysis. 2. Carrier screening: Per ACOG guidelines, I offered Chasity carrier screening for cystic fibrosis,spinal muscular atrophy, and Boogie-Sachs disease. I explained the benefits and limitations of these tests. I informed the couple that screening is now routine for cystic fibrosis and spinal muscular atrophy in [place] and [place]. Chasity declined all carrier screening today. Plan Detailed morphology ultrasound and maternal- medicine consultation today as scheduled. documented in this encounter Plan of Treatment Not on file documented as of this encounter Visit Diagnoses Diagnosis Maternal age 35+, multigravida, second trimester Encounter for procreative genetic counseling documented in this encounter Care Teams Die Grinder Relationship Specialty Start Date End Date Arabella Villarreal MD [address] [place] [address] [address] [facility] [address] [place] [address] PCP - General 09/16/11 documented as of this encounter
--- OUTSIDE RECORDS SUMMARY | 2024-04-07 01:39 | XMS_ITS | Encounter Summary ---
Author Organization [facility] Address [facility] [place] [address] Care Team Providers Care Broadcast Checker Name Role Phone Arabella Villarreal MD Primary Care Provider [phone] Encounter Details Date Type Department Care Team (Late st Contact Info) Description 11/11/2017 Telephone Dermatology at [facility] [address] [place] [address] 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 May I put her on your schedule for ? Let me know. Thanks. documented in this encounter Plan of Treatment Not on file documented as of this encounter Visit Diagnoses Not on filedocumented in this encounter Care Teams Broadcast Checker Relationship Specialty Start Date End Date Arabella Villarreal MD [address] [place] [address] PCP - General 09/16/11 documented as of this encounter
--- OUTSIDE RECORDS SUMMARY | 2024-04-07 01:39 | XMS_ITS | Encounter Summary ---
Author Organization [facility] [place] [address] Care Team Providers Care Grain Thresher Name Role Phone Arabella Villarreal MD Primary Care Provider [phone] Encounter Details Date Type Department Care Team (Latest Contact Info) Description 06/03/2023 Travel Social History Tobacco Use Types Packs/Day [...] on filedocumented in this encounter Care Teams Grain Thresher Relationship Specialty Start Date End Date Arabella Villarreal MD [address] [place], [place] [id number] PCP - General 09/16/11 documented as of this encounter
--- OUTSIDE RECORDS SUMMARY | 2024-04-07 01:39 | XMS_ITS | Encounter Summary ---
Author Organization [facility] Address [facility] [place] [address] Care Team Providers Care Application Security Developer Name Role Phone Arabella Villarreal MD Primary Care Provider [phone] Encounter Details Date Type Department Care Team (Late st Contact Info) Description 10/14/2017 External [place] [id number] Provider, Scanning Social History Tobacco Use Types Packs/Day Years [...] Procedure Name Priority Date/Time Associated Diagnosis Comments SURGICAL PATHOLOGY SCAN Routine 10/14/2017 documented in this encounter Results * Scan Doc: Surgical Pathology (10/14/2017) Shaye GARCÍA MEDIA MGR SCAN EXT ORDR/RSLT documented in this encounter Visit Diagnoses Not on filedocumented in this encounter Care Teams Application Security Developer Relationship Specialty Start Date End Date Arabella Villarreal MD [address] [place] [address] PCP - General 09/16/11 documented as of this encounter
--- OUTSIDE RECORDS SUMMARY | 2024-04-07 01:39 | XMS_ITS | Encounter Summary ---
Author Organization [facility] [place] [address] Care Team Providers Care Loss Prevention/Safety District Manager Name Role Phone Arabella Villarreal MD Primary Care Provider [phone] Reason for Visit * Reason Comments Skin Check Encounter Details Date Type Department Care Team (Late st Contact Info) Description 09/25/2018 3:30 PM EDT Office Visit Dermatology at [address] [address] Malka Perez MD [facility] [address] [address] Lentigines; Avila angioma; Seborrheic keratoses; Dermatofibroma; History of dysplastic nevus Social History Tobacco Use Types Packs/Day Years Used Date Smoking Tobacco: Never Smokeless Tobacco: Never Alcohol Use Standard Drinks/Week Comments No 0 (1 standard drink = 0.6 oz pur e alcohol) Sex and Gender Information Value Date Recorded Sex Assigned at Not on file Gender Identity Not on file Sexual Orientation Not on file documented as of this encounter Progress Notes * Malka Perez MD - 09/25/2018 3:30 PM EDT Images from the original note were not included. DERMATOLOGY - ESTABLISHED PATIENT NOTE Date of service: 09/25/2018 Chasity Gallo : 1980 CC: Full skin exam HPI: Chasity Gallo is a 38 y.o. established patient but new to me - rescheduled from Dr. Murphy today Last seen by Nicky Becerra MD Last seen in [facility] D[facility]: 01/20/2018 Here today with the following concerns: - Full skin exam. - Pt notes that there is a nevus on her R chest that she believes may have changed. - Pt states excision of the dysplastic nevus on her right upper back in January of 2018 went well. Last FSE: 09/24/17 Current sun protection: Relevant Medical History: Preferred name: Chasity Skin type: 2 Yes/No If yes (date, subtype, location, treatment) Melanoma No Dysplastic nevi Yes - 09/24/17, Dysplastic lentiginous compound melanocytic nevus, right upper back,excised 01/20/18 - 08/21/16, Intradermal melanocytic nevus, right mid back, excised SCC No BCC No [place] No Eczema/Psoriasis No Immunosuppression or Malignancy No History of blistering sunburn unknown Other No Relevant Family History: Yes/No If yes, who (mom/dad/sibling/child) Melanoma unsure SCC No BCC No Psoriasis or Eczema Yes Mother Other Yes Father in his 50s of pancreatic cancer Social History: 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 Other [Unclassified Drug] Nausea Only Prefilled saline syringes cause severe nausea--please draw saline flushes from vials or bags only! Review of Systems: - General: Feels well. - Skin: No other skin concerns. Examination: - Constitutional: Patient was alert, well-appearing and in no noticeable distress. - Skin exam: The patient was asked to disrobe to the level of their comfort. Full skin examination of the scalp, hair, head, face, neck, back, chest, abdomen, right and left upper extremities, right and left lower extremities and buttocks was normal with the exception of the findings listed below. Standby: IGOR Marrero Notable findings/Assessment/Plan: 1. Solar Lentigines, Sun exposed areas: 0.3-0.6cm light-brown evenly pigmented, well-demarcated macules. - Benign. No treatment necessary. - Reassured about benign nature and natural history. - Sun avoidance, protective clothing and the use of SPF 30+ sunscreen is advised. Observe closely for skin changes and call if such occurs. 2. Avila Angiomas, Multiple 0.2-0.4cm bright red, well-demarcated papules - Benign. No treatment necessary. - Reassured about benign nature and natural history. 3. Seborrheic Keratoses, stuck on plaqued R breast and scattered on central chest - reassured 4. Dermatofibroma - firm pink papule with peripheral pigmentation on the bilateral lower extremities. - Reviewed benign nature of these skin lesions. No treatment necessary. 5. History of dysplastic Nevus, on the left upper back; well healed scar - No evidence of recurrence. 6. History of Nevus - ? atypical, on the right buttock; Well healed scar with recurrent pigment centrally. See [Figure A] - Awaiting lab results to be faxed from 2013. If moderately dysplastic or higher recommend re-excision. - Will continue to monitor at annual skin exams 7. Sun Care Counseling - dawn on exam - Discussed importance of sun protection, sun avoidance strategies, protective clothing, and sunscreen SPF 30+. - Recommend applying sunscreen SPF 30+ daily on the face, neck, and ears at least. - When going to be outdoors, we recommend at least SPF 50 sunscreen or UPF clothing. Remember to reapply sunscreen every 2 hours or after sweating or getting wet when outdoors. RTC: October 2019 for 1 year full skin exam with Dr. Murphy, hx dysplastic nevi - or sooner as needed with a female provider. Reminder placed in scheduling system. Photo was taken and charted with patient's consent: [Figure A] right buttock Note initiated by IGOR Marrero. IGOR Marrero has performed the documentation for this encounter in the presence of andacting as a scribe for Dr. Perez. I performed the above scribed service and agree with the accuracy of the documentation in this encounter. Reviewed and signed by: Malka Perez MD Dermatology [facility] * Malka Perez MD - 09/25/2018 3:30 PM EDT 2014 - SKIN OF BUTTOCK, RIGHT, SHAVE BIOPSY: - Melanocytic nevus, intradermal type, with superimposed changes of prurigo nodularis.?See comment. No additional treatment needed documented in this encounter Plan of Treatment Not on file documented as of this encounter Visit Diagnoses Diagnosis Lentigines Other dyschromia Avila angioma Nevus, non-neoplastic Seborrheic keratoses Dermatofibroma Benign neoplasm of skin, site unspecified History of dysplastic nevus Personal history of diseases of skin and subcutaneous tissue documented in this encounter Care Teams Loss Prevention/Safety District Manager Relationship Specialty Start Date End Date Arabella Villarreal MD [address] [place] [address] PCP - General 09/16/11 documented as of this encounter
--- OUTSIDE RECORDS SUMMARY | 2024-04-07 01:39 | XMS_ITS | Encounter Summary ---
Author Organization [facility] [place] [address] Care Team Providers Care Check Grader Name Role Phone Arabella Villarreal MD Primary Care Provider [phone] Encounter Details Date Type Department Care Team (Late st Contact Info) Description 01/16/2018 Telephone Dermatology at [facility] [address] [place] [address] Nicky Becerra MD [facility] [place] [address] Social History Tobacco Use Types Packs/Day Years [...] encounter Miscellaneous Notes * Telephone Encounter - Nathalie Crandall LPN - 01/16/2018 11:43 AM EST Pre-Op excision phone call Date of Call: 01/16/18 Surgical procedure to be done: OSP to a biopsy proven dysplastic nevus located on the upper back left of midline Surgical Pathology: ADDENDUM DISCUSSION Final Diagnosis: - Dysplastic lentiginous compound melanocytic nevus, involving the margins (see ??comment). - Complete removal is recommended. Spoke with Chasity Dotson by phone to review the following. Review of allergies and medications: instructed to take all medications prior to procedure Does not take any blood thinners. Does not have any allergies to Lidocaine or epinephrine. Does not take antibiotics before dental procedures. Does not have any cardiac issues, murmurs or valve replacements. Does not have a pacemaker or defibrillator. Has not had a total joint replacement with in the past 2 years. Recommend that she is to be accompanied by someone who can drive home if needed. Discussed length of procedure and time variables. Post operative instructions reviewed including physical limitations after procedure. Phone number given should any questions or concerns arise before or after the procedure. Shanna Gallo states that she understands all of the above. NATHALIE CRANDALL LPN documented in this encounter Plan of Treatment Not on file documented as of this encounter Visit Diagnoses Not on filedocumented in this encounter Care Teams Check Grader Relationship Specialty Start Date End Date Arabella Villarreal MD [address] [place] [address] PCP - General 09/16/11 documented as of this encounter
--- OUTSIDE RECORDS SUMMARY | 2024-04-07 01:39 | XMS_ITS | Clinical Summary ---
Author Organization [facility] Address [address] [facility] [address] Care Team Providers Care Customer Equipment Engineer Name Role Phone Arabella Villarreal MD Primary Care Provider [phone] Allergies Active Allergy Reactions Criticality Noted Date Comments Unclassified Drug Nausea Only High 12/29/2011 Prefilled saline syringes cause severe nausea--please draw saline flushes from vials or bags only! Medications Medication Sig Dispensed Refills Start Date End Date Status Lysine HCl 500 mg TabIndications:Cold sores Take 500 mg by mouth 2 times daily. Reported on 03/18/2016 Indications: Cold sores Active FLUTICASONE PROPIONATE (FLONASE ALLERGY RELIEF NASL) by Nasal route. Active famotidine (Pepcid) 20 mg Tablet Take 20 mg by mouth 2 times daily. Active proGESTerone (Prometrium) 100 mg Capsule TAKE ONE CAPSULE BY MOUTH EVERY MORNING FOR 3 MONTHS 01/09/2022 Active triamcinolone (Kenalog) 0.1 % Cream APPLY 1 APPLICATION TO THE FOOT TWO TIMES A DAY 02/12/2022 Active Active Problems Problem Noted Date Diagnosed Date [...] time of visit -RTC in 2 weeks Family History Medical History Relation Comments Allergies Brother Asthma Brother Allergies Daughter 1 Asthma Daughter 1 GERD Daughter 1 Hyperlipidemia Daughter 1 presumed heredit gini hypercholesterolemia Pancreatic Cancer Father Esophageal Cancer Maternal Grandfather Colorectal Cancer Maternal Grandmother Diabetes Maternal Grandmother Celiac Disease Mother GERD Mother Hypothyroidism Mother thyroidectomy Irritable Bowel Syndrome Mother Hypertension Paternal Grandfather Diabetes Paternal Grandmother Intellectual Disability Paternal Uncle Relation Status Comments Brother Alive Daughter 1 Alive Daughter 2 Alive Father Maternal Grandfather Maternal Grandmother Alive Mother Alive Paternal Grandfather Paternal Grandmother Paternal Uncle Social History Tobacco Use Types Packs/Day Years Used Date Smoking Tobacco: Never Smokeless Tobacco: Never Alcohol Use Standard Drinks/Week Comments No 0 (1 standard drink = 0.6 oz pur e alcohol) Sex and Gender Information Value Date Recorded Sex Assigned at Not on file Gender Identity Not on file Sexual Orientation Not on file Last Filed Vital Signs Vital Sign Reading Time Taken Comments Blood Pressure 111/60 05/07/2019 10:04 AM EST Pulse 67 05/07/2019 10:04 AM EST Temperature 37.3 ??C (99.1 ??F) 03/17/2017 12:[address] Respiratory Rate 18 03/17/2017 12:47 PM EST Oxygen Saturation 100% 03/17/2017 12:47 PM EST Inhaled Oxygen Concentration - - Weight 88.5 kg (195 lb) 05/07/2019 10:04 AM EST Height 167.6 cm (5' 6) 05/07/2019 10:04 AM EST Body Mass Index 31.47 05/07/2019 10:04 AM EST Plan of Treatment Health Maintenance Due Date Last Done Comments Hepatitis B vaccine (0-59 yr s) (1) 07/11/1999 Pneumococcal Vaccine: At-Ris k 5-49yrs (1 of 2 - PCV) 07/11/1999 Tetanus/Diphtheria/Pertussis Vaccines (1 - Tdap) 07/11/1999 HPV test 2010 PAP Smear 2010 Breast Cancer Share Decision Needed 2020 Breast Cancer screening 2020 Covid-19 Vaccine (1 - 2023-2 5 season) 2023 Influenza (Flu) vaccine (1 o f 1 - Influenza standard series) 11/02/2023 HIV screen Completed 10/10/2011 Hepatitis C Screening Completed 10/10/2011 Diabetes Screening (HgbA1C o r Glucose) Discontinued 03/17/2017, 03/18/2016, 03/23/2015, Additional history exists Procedures Procedure Name Priority Date/Time Associated Diagnosis Comments COMPREHENSIVE METABOLIC PANEL STAT 03/17/2017 11:57 AM EST 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 HIV SCREEN, 4TH GENERATION ([facility]/CGP/APD/NLH)PER FORMABLE STAT 10/10/2011 11:23 AM EDT Hodgkin's disease HEPATITIS C ANTIBODY STAT 10/10/2011 11:23 AM EDT Hodgkin's disease from Last 3 Months or Most Recently Relevant to Health Maintenance Results * Comprehensive metabolic panel (non-fasting) (03/17/2017 11:57 AM EST) Glucose 98 65 - 199 mg/dL [facility] Comment:Diabetes: >=200 mg/d L plus symptoms Blood Urea Nitrogen 16 8 - 18 mg/dL [facility] Creatinine 0.74 0.70 - 1.20 mg/dL [facility] Sodium 140 135 - 145 mmol/L [facility] Potassium 4.0 3.5 - 5.0 mmol/L [facility] Comment: Please note: ??Patients with WBC >100,000 may have falsely elevated Potassium levels. ??For accurate Potassium quantification in these patients send serum separator tube (gold top) for subsequent determinations. ??Contact the Clinical Chemistry Laboratory if there are any questions. Chloride 103 98 - 107 mmol/L [facility] Carbon Dioxide 27 22 - 31 mmol/L [facility] Anion Gap 10 5 - 15 mmol/L [facility] Calcium 9.2 8.5 - 10.5 mg/dL [facility] Protein, Total 6.5 6.1 - 8.0 gm/dL [facility] Albumin 4.2 3.2 - 5.2 gm/dL [facility] Aspartate Aminotransferase 16 0 - 30 unit/L [facility] Alanine Aminotransferase 16 0 - 30 unit/L [facility] Alkaline Phosphatase 41 40 - 104 unit/L [facility] Bilirubin, Total 0.2 0.2 - 1.3 mg/dL [facility] Est Glomerular Filtration Rate >60 >=60 [facility] Comment: The reported eGFR should be multiplied by 1.2 for patients. The MDRD is not an appropriate measure of renal function for patients with body mass extremes or in patients with acute kidney failure. http://[employer]/DHnkdep http://[employer]/DHMCnkf Blood specimen (specimen) 03/17/2017 11:57 AM EST 03/17/2017 12:06 PM EST Narrative Resulting Agency Comment Spec In Lab Austin Lauren MD CHEMISTRY ORDERA BLES [facility] [place] [address] * Hepatitis C Antibody (10/10/2011 11:23 AM EDT) Hepatitis C Antibody Negative Negative [facility] Blood specimen (specimen) 10/10/2011 11:23 AM EDT 10/10/2011 11:37 AM EDT Narrative Resulting Agency Comment Spec In Lab Myron Cruz MD CHEMISTRY ORDERABL ES [facility] * HIV (10/10/2011 11:23 AM EDT) HIV 1/2 Ab Negative [facility] Blood specimen (specimen) 10/10/2011 11:23 AM EDT 10/10/2011 11:37 AM EDT Narrative Resulting Agency Comment Spec In Lab Myron Cruz MD CHEMISTRY ORDERABL ES [facility] MILLENNIUM from Last 3 Months or Most Recently Relevant to Health Maintenance Advance Directives Documents on File Type Date Recorded Patient Vice President Corporate Communications Expl anation Advance Directives and Livin g Will 09/25/2011 6:03 AM * Full Code (Latest Code Status on File) Date Activated Date Inactivated Comments 09/24/2011 10:05 AM 09/24/2011 8:17 PM Question Answer Comments Order Status: Initial Order Does patient have decision m aking capacity? Yes, Order is based on Patients wishes. * Full Code Date Activated Date Inactivated Comments 09/12/2011 5:21 PM 09/13/2011 4:59 PM Question Answer Comments Does patient have decision m aking capacity? Yes, order is based on Patient wishes. Care Teams Customer Equipment Engineer Relationship Specialty Start Date End Date Arabella Villarreal MD [address] [place] [address] PCP - General 09/16/11
--- OUTSIDE RECORDS SUMMARY | 2024-04-07 01:39 | XMS_ITS | Encounter Summary ---
Author Organization [facility] Address [facility] [place] [address] Care Team Providers Care Manager Lsw Name Role Phone Arabella Villarreal MD Primary Care Provider [phone] Encounter Details Date Type Department Care Team (Late st Contact Info) Description 11/04/2017 Telephone Dermatology at [facility] [address] [place] [address] Shaye Dow PA Social History Tobacco Use Types Packs/Day Years [...] encounter Miscellaneous Notes * Telephone Encounter - Loreto Howard - 11/04/2017 9:10 AM EDT Pt called and left a msg, she wanted to schedule an appointment with Margarita on or around 02/27/18. Shegave permission to leave available appointment times in a call back msg, since she rarely is able to answer the phone due to her work. I called back and left a msg with my call back #. I let her knowknow that the 28th is not available with Margarita, but there are spots open on 02/19 & 03/04/18. documented in this encounter Plan of Treatment Not on file documented as of this encounter Visit Diagnoses Not on filedocumented in this encounter Care Teams Manager Lsw Relationship Specialty Start Date End Date Arabella Villarreal MD [address] [place] [address] PCP - General 09/16/11 documented as of this encounter
--- OUTSIDE RECORDS SUMMARY | 2024-04-07 01:39 | XMS_ITS | Encounter Summary ---
Author Organization [facility] [place] [address] Care Team Providers Care Last Pattern Grader Name Role Phone Arabella Villarreal MD Primary Care Provider [phone] Encounter Details Date Type Department Care Team (Late st Contact Info) Description 01/20/2018 3:45 PM EST Procedure visit Dermatology at [facility] [address] [place] [address] Nicky Becerra MD [facility] [place] [address] [place] [address] Dysplastic nevus Social History Tobacco Use Types Packs/Day Years Used Date Smoking Tobacco: Never Smokeless Tobacco: Never Alcohol Use Standard Drinks/Week Comments No 0 (1 standard drink = 0.6 oz pur e alcohol) Sex and Gender Information Value Date Recorded Sex Assigned at Not on file Gender Identity Not on file Sexual Orientation Not on file documented as of this encounter Progress Notes * Nicky Becerra MD - 01/20/2018 3:45 PM EST Procedure note: Attending: Nicky Becerra MD Outside Machinist Supervisor: NATHALIE CRANDALL LPN Referring MD: Shaye Dow PA-C ? Y/N? Are you taking any blood thinners?? ? No Pacemaker or defibrillator?? ? No Heart valves? ? No Joints? No Antibiotics prior to procedures?? ? No If yes: Time taken?? ? Allergy to local anesthetics? ? No ? Allergy to latex?? ? No Pathology: ADDENDUM DISCUSSION Final Diagnosis: - Dysplastic lentiginous compound melanocytic nevus, involving the margins (see ??comment). - Complete removal is recommended. COMMENT This case has been reviewed by Juan F Alvarez MD of [facility] ??([facility] Cutaneous Pathology by report dated 10/13/2017 with the accession number ??[id number]. We agree with Dr. Alvarez ??'s assessment that the lesion is dysplastic, there is ??some severe atypia, and that an excision to ensure complete removal is recommended. The [facility] ??'[facility] ([facility]) [facility] Cutaneous Pathology diagnosis is in ??agreement with our diagnosis. For the full text of the [facility] ??([facility] Cutaneous Pathology report, please refer to Non- Documentation ??Pathology in the electronic health record (eDH). ADDITIONAL STUDIES This case was also reviewed by multiple additional intradepartmental ??dermatopathologists for consensus assessment. The dermatology note, clinical image ??and select medical history have been reviewed. Immunohistochemistry Studies: Formalin-fixed, paraffin-embedded tissue sections are studied using the polymer ??technique with appropriate positive and negative controls. ??These IHC studies ??provide the pathologist with adjunctive diagnostic information. Antibody specificity ??has been verified by testing antibodies on a series of in-house tissues with known ??immunohistochemical performance characteristics. The clinical interpretation of ??any antibody positive staining or its absence is evaluated within the context of ??clinical presentation, morphology, histopathological criteria and other diagnostic ??tests. Block ? Antibody ?Result (Positive/Negative) A1 ?Melan A ? Positive (in the lesional cells) A1 ?p16 ? Retained (in some lesional cells) A1 ?HMB45 ? Positive (in some lesional cells) Electronically signed by: ??Giovanni Srinivasan MD Verified: ??10/14/2017 ?Dermatopathologist Performed at: ??-[facility], [place], [place] ? Surgical Pathology DIAGNOSIS Skin, right upper back, shave ?? biopsy: Compound melanocytic proliferation ?? (see discussion). Electronically signed by: ??Giovanni Srinivasan MD Verified: ??10/07/2017 ?Dermatopathologist Performed at: ??-[facility], [place], [place] DISCUSSION This is a preliminary report. The case is being sent in consultation. A more complete ??report will be issued as an addendum. I explained the diagnosis to the patient and recommend an excision of the lesion for diagnosis and/or treatment. I explained all treatment options and risks of the procedure to the patient and obtained written consent. Potential complications include, but not limited to: scar, bleeding, infection, incomplete removal, nerve damage, and dehiscence. ? The patient was brought into room. A time out was performed. The patient was prepared and draped sterilely in the usual manner and anesthesia was administered by local infiltration. A fusiform shape was drawn around the lesion, and the margins were incised to the level of the subcutaneous fat with a number 15 blade. The tissue was removed with sharp and blunt dissection. The lateral margins of the resulting defect were undermined with sharp and blunt dissection and hemostasis was achieved with electrocautery. The deeper layers of the defect including subcutaneous fat were approximated to reduce tension on the suture line Layered wound closure was performed. The wound was cleaned, dried off,vaseline was applied and the wound covered with a pressure dressing. The patient was given detailedverbal and written instructions on post-operative care. ? In the event of a suspected infection (e.g. pus formation, fever, redness), the patient knows to call the clinic or the on-call vineyard tender over the weekend. ??? Name of Procedure? ? Excision with intermediate layered closure Location? ?? Right Upper Back Diagnosis? ?? Dysplastic Nevuis Size (maximal) (cm)? ?? 0.5 cm pink scar, with one incidental nevus Margins (cm)? 0.4 cm ? Size + Margins (cm)? ? 1.3 cm ? 1% lidocaine with epinephrine? 8 cc? Suture (adipose/dermis)? 4-0 Monocryl? Suture (epidermis)? 4-0 Prolene? Final wound length? 4.1 cm? Suture removal? 12-14 days? Note: Specimen Tagged at the medial tip. Specimen includes one incidental nevus. Patient elected to have sutures removed at her local PCP's clinic as this is closer to home. Follow up: as scheduled on 03/04/18 for a FSE with Shaye Dow PA-C, sooner if needed. Instructed patient to call our clinic with any questions or concerns. * Nicky Becerra MD - 01/20/2018 3:45 PM EST Annabel, Excision shows focal residual atypical mole, which was completely removed by the procedure. Good news. There were some incidental benign nevi identified as well. Please notify patient and check on wound healing. Thank you. DTB * Annabel Lincoln LPN - 01/20/2018 3:45 PM EST Spoke to patient with results. Healing well. ANNABEL LINCOLN LPN documented in this encounter Plan of Treatment Not on file documented as of this encounter Procedures Procedure Name Priority Date/Time Associated Diagnosis Comments SPECIMEN TO PATHOLOGY Routine 01/20/2018 4:50 PM EST Dysplastic nevus SURGICAL PATHOLOGY REPORT Routine 01/20/2018 4:15 PM EST documented in this encounter Results * Specimen to Pathology (01/20/2018 4:50 PM EST) AP Specimen 01/20/2018 4:50 PM EST 01/21/2018 9:30 AM EST Narrative [facility] - 01/21/2018 9:30 AM EST Specimen requisition ordered. ??Separate Pathology report to follow Resulting Agency Comment Spec In Lab Nicky Becerra MD PATHOLOGY/CYTOLOGY ORDERABLES [facility] [place] [address] * Surgical Pathology Report (01/20/2018 4:15 PM EST) Final Diagnosis [id number] ? Location: [facility] The signing pathologist has (i) examined the relevant preparation(s) for the specimen(s) and (ii) rendered or confirmed the diagnosis(es). . ?Surgical Pathology DIAGNOSIS Skin, right upper back, excision: - Focal residual previously diagnosed ?? dysplastic melanocytic nevus adjacent to scar, margins are not involved (see Discussion) - Incidental ??lentiginous compound melanocytic nevus, not identified at the histologic edges in planes of section examined - Incidental ??lentiginous compound melanocytic nevus with features of congenital onset, present at the peripheral specimen margin around 4-5 ? o'clock Electronically signed by: ??Candelario ROBERTS, PhD, Koko Verified: ??01/26/2018 ?Dermatopatholog ist Performed at: ??-[facility], [place], [place] DISCUSSION Slides of the patient ??'s prior biopsy (- [id number]) have been reviewed. CLINICAL INFORMATION Specimen Submitted: A - Skin, right upper back, excision (1) Clinical History and Diagnosis: 0.5 cm pink scar; dysplastic nevus, previous pathology [id number]; specimen tagged at the medial tip, specimen includes one incidental nevus SPECIMEN PROCESSING A - Labeled/Fixative: Right upper back, formalin. Quantity/Size: ??Single, 3.2 x 1.3 x 0.8 cm. Tissue Description: Elliptical excision of dawn skin with a suture designating the medial tip (prosector redesignated 12 o ?? 'clock). Centrally located is a 0.5 cm well-healed scar. At 4 o 'clock, adjacent to the peripheral margin there is a 0.4 cm brown macule. Inkin-3-6 o 'clock is marked black. ??6-9-12 o ??'clock is marked blue. Sections/Processi ng: Serially sectioned and entirely submitted in 7 cassettes as follows: ? A1: ??12 o 'clock tip ? A2-A6: ??Central sections, consecutively submitted, (4) scar, (5) brown macule ? A7: ??6 o 'clock tip ??ciara 01/26/2018 2:02 PM EST [facility] SPECIMEN FROM SKIN / Unknown 01/20/2018 4:15 PM EST 01/20/2018 4:15 PM EST Nicky Becerra MD PATHOLOGY/CYTOLOGY ORDERABLES [facility] [place] [address] documented in this encounter Visit Diagnoses Diagnosis Dysplastic nevus Benign neoplasm of skin, site unspecified documented in this encounter Care Teams Last Pattern Grader Relationship Specialty Start Date End Date Arabella Villarreal MD [address] [place] [address] PCP - General 09/16/11 documented as of this encounter
--- OUTSIDE RECORDS SUMMARY | 2024-04-07 01:39 | XMS_ITS | Encounter Summary ---
Author Organization [facility] [place] [address] Care Team Providers Care Rand Butting Machine Operator Name Role Phone Arabella Villarreal MD Primary Care Provider [phone] Reason for Visit * Consultation (Routine) - Closed Specialty Diagnoses / Procedures Referred By Contac t Referred To Contact Obstetrics and Gynecology Diagnoses HX OF HODGKIN'S DISEASE, Onesimo Olmedo MD [address] [place] [id number] [facility] Assistance Coordinator [address] [place] [address] Referral ID Status Reason Start Date Expiration Date V isits Requested Visits Authorized [id number] Closed Consult, Test & Treat Connection Center PCP Updated and/or Approved 04/01/2019 03/31/2020 2 2 Encounter Details Date Type Department Care Team (Late st Contact Info) Description 05/07/2019 12:00 PM EST Procedure visit Obstetrics [place] [address] Renate Gilbert MD [facility] [address] [place] [address] Maternal age 35+, multigravida, second trimester; Ultrasound for screening for growth restriction; History of Hodgkin's disease Social History Tobacco Use Types Packs/Day Years Used Date Smoking Tobacco: Never Smokeless Tobacco: Never Alcohol Use Standard Drinks/Week Comments No 0 (1 standard drink = 0.6 oz pur e alcohol) Comments Yes Sex and Gender Information Value Date Recorded Sex Assigned at Not on file Gender Identity Not on file Sexual Orientation Not on file documented as of this encounter Last Filed Vital Signs Vital Sign Reading Time Taken Comments Blood Pressure 111/60 05/07/2019 10:04 AM EST Pulse 67 05/07/2019 10:04 AM EST Temperature - - Respiratory Rate - - Oxygen Saturation - - Inhaled Oxygen Concentration - - Weight 88.5 kg (195 lb) 05/07/2019 10:04 AM EST Height 167.6 cm (5' 6) 05/07/2019 10:04 AM EST Body Mass Index 31.47 05/07/2019 10:04 AM EST documented in this encounter Progress Notes * Renate Gilbert MD - 05/07/2019 12:00 PM EST Diagnosis/Maternal Medicine Consult Note Chasity Gallo is a 38 y.o. year old female who is at 18w5d gestation. She is seen in consultation at the request of Onesimo Kat MD for evaluation of AMA and chronic leukopenia. She was seen today for maternal- medicine consultation, ultrasound evaluation and genetic counseling with Ponce Rose. She had [place] screening which was low risk for Trisomy 21, 18 and 13. Review of Systems Constitutional:feels well Movement: normal Contractions: none Leaking: None Bleeding: None Patient Active Problem List Diagnosis Date Noted ??? Hodgkin's lymphoma 10/05/2011 Past Medical History: Diagnosis Date ??? Hodgkin's disease in remission 2011 ??? Leukopenia Past Surgical History: Procedure Laterality Date ??? PRO BONE MARROW BX, NEEDLE/TROCAR 10/10/2011 (MSURG) BONE MARROW,BIOPSY performed by XIOMARA KATZ at [facility] MAIN OR ??? PRO BX/REMV, LYMPH NODE, DEEP CERV 09/25/2011 BIOPSY OR EXCISION OF LYMPH NODE(S), OPEN, DEEP CERVICAL NODES performed by ANA LOPEZ at [facility] MAIN OR Family History Problem Relation Age of Onset ??? Pancreatic Cancer Father ??? Hypothyroidism Mother 17 thyroidectomy ??? Celiac Disease Mother ??? Irritable Bowel Syndrome Mother ??? GERD Mother ??? Asthma Brother ??? Allergies Brother ??? Diabetes Maternal Grandmother ??? Colorectal Cancer Maternal Grandmother ??? Esophageal Cancer Maternal Grandfather ??? Diabetes Paternal Grandmother ??? Hypertension Paternal Grandfather ??? Asthma Daughter ??? Allergies Daughter ??? GERD Daughter ??? Hyperlipidemia Daughter 8 presumed hereditary hypercholesterolemia Social History Occupational History ??? Not on file Tobacco Use ??? Smoking status: Never Smoker ??? Smokeless tobacco: Never Used Substance and Sexual Activity ??? Alcohol use: No ??? Drug use: No ??? Sexual activity: Yes control/protection: Other-see comments Comment: trying to get at this time, just finsihed menses OB History 6 Para 2 Term 2 AB 3 Living 2 SAB 2 TAB Ectopic 1 Multiple Live Births 2 # Outc Date GA Lbr Maurilio/2nd Wgt Sex Del Anes PTL Lv 1 Term 07/2009 40w0d 4.167 kg (9 lb 3 oz) F Vag-Spont Living 2 Term 10/2014 40w0d 3.544 kg (7 lb 13 oz) F Vag-Spont Living 3 SAB 11/2017 4 Ectopic 05/2018 5 SAB 11/2018 6 Current Current Outpatient Medications Medication Sig Dispense Refill ??? ferrous sulfate 325 mg (65 mg iron) Tablet TK 1 T PO BID ??? levothyroxine (Synthroid) 25 mcg Tablet TK 1 T PO QD UTD ??? pantoprazole EC (Protonix) 20 mg Tablet, Delayed Release (E.C.) TK 1 T PO D ??? aspirin EC 81 mg Tablet, Delayed Release (E.C.) Take 81 mg by mouth daily. ??? famotidine (Pepcid) 20 mg Tablet Take 20 mg by mouth 2 times daily. ??? pyridoxine, vitamin B6, (B-6) 100 mg Tablet Take 100 mg by mouth daily. ??? FLUTICASONE PROPIONATE (FLONASE ALLERGY RELIEF NASL) by Nasal route. ? ? vitamin 27 & wloadkp-yldr-BQ 60 mg iron-1 mg tablet Take 1 tablet by mouth daily. ??? Lysine HCl 500 mg Tab Take 500 mg by mouth 2 times daily. Reported on 03/18/2016 Indications: Cold sores ??? ranitidine (ZANTAC) 150 mg tablet Take 150 mg by mouth daily as needed. Indications: Gastroesophageal Reflux No current facility-administered medications for this visit. Allergies Allergen Reactions ??? Other [Unclassified Drug] Nausea Only Prefilled saline syringes cause severe nausea--please draw saline flushes from vials or bags only! Ultrasound Date: 05/07/2019 Amniotic fluid volume normal Presentation cephalic Placenta anterior Growth appropriate for gestational age anatomy unremarkable except for isolated echogenic intracardiac focus Physical Exam BP 111/60 Pulse 67 Ht 167.6 cm (5' 6) Wt 88.5 kg (195 lb) LMP 12/27/2018 BMI 31.47 kg/m?? General: alert, well appearing, in no apparent distress HEENT: normocephalic, atraumatic Abdomen: Soft, nontender Neurologic:alert, oriented, normal speech, no focal findings or movement disorder noted Psychiatric: Affect is Appropriate. Assessment and Recommendations: 38 y.o. year old female at 18w5d weeks gestation, referred for counseling regarding AMA andchronic leukopenia. I spent 40 minutes in face to face time with the patient of which 95% was in direct counseling. We reviewed The ultrasound findings and limitations of ultrasound in detecting anomalies and aneuploidy. The anatomy was unremarkable except for isolated echogenic intracardaic focus. We reviewed the association between isolated EICF and Trisomy 21 but that the cell free DNA screen was low risk making this finding likely a normal variant. Approximately 2-3% of euploid fetuses have isolated EICF. We reviewed her history of Hodgkin's disease and ABVD chemotherapy course which included Adriamycin. She likely has a chronic leukopenia with baseline WBC 3.3- 6.6 related to prior chemotherapy. She has never had recurrent infection and does not have neutropenia. Her last ANC here at [facility] was 2180 in 2018. I recommend monitoring of her WBC's once a trimester and counseled her to seek evaluation for fevers of infections to have reevaluation for neutropenia. If she develops neutropenia then appropriate neutropenic precauions should be taken. She has had chemotherapy with anthracyclin. Her last echocardiogram in 2011 was normal. She has not had cardiac symptoms. I recommend considering a maternal echocardiogram to evaluate for late effects of cardiotoxicity. I appreciate the opportunity to be involved in this patients care, and am available if further questions should arise. RENATE GILBERT MD 05/07/2019 Cc: Onesimo Kat MD [address] [place] [address] [place] [address] , with copy of ultrasound report documented in this encounter Plan of Treatment Not on file documented as of this encounter Visit Diagnoses Diagnosis Maternal age 35+, multigravida, second trimester Ultrasound for screening for growth restriction screening for growth retardation using ultrasonics History of Hodgkin's disease Personal history of Hodgkin's disease documented in this encounter Care Teams Rand Butting Machine Operator Relationship Specialty Start Date End Date Arabella Villarreal MD [address] [place] [address] PCP - General 09/16/11 documented as of this encounter
--- OUTSIDE RECORDS SUMMARY | 2024-04-07 01:39 | XMS_ITS | Encounter Summary ---
Author Organization [facility] [place] [address] Care Team Providers Care Senior Interaction Designer Name Role Phone Arabella Villarreal MD Primary Care Provider [phone] Encounter Details Date Type Department Care Team (Late st Contact Info) Description 04/02/2022 3:00 PM EST Office Visit Dermatology at [facility] [address] [place] [id number] Lisa Murphy MD [facility] [place] [address] Skin cancer screening; History of dysplastic nevus; Melanocytic nevus, unspecified location; Dermatofibroma; Lentigines; Avila angioma Social History Tobacco Use Types Packs/Day Years Used Date Smoking Tobacco: Never Smokeless Tobacco: Never Alcohol Use Standard Drinks/Week Comments No 0 (1 standard drink = 0.6 oz pur e alcohol) Sex and Gender Information Value Date Recorded Sex Assigned at Not on file Gender Identity Not on file Sexual Orientation Not on file documented as of this encounter Progress Notes * Lisa Murphy MD - 04/02/2022 3:00 PM EST Images from the original note were not included. DEPARTMENT OF DERMATOLOGY Medical Dermatology Clinic Provider: Lisa Murphy MD Patient's preferred name Chasity Preferred contact method for results [x]Phone []myD-H []Letter Detailed phone message OK? Yes Are there any other people with whom we may discuss your care? 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 Patient is new and self-referred to the clinic for a full skin cancer screening: - No specific lesions that are concerning. No spots that are changing colors, itching, or bleeding. Medications: Reviewed in eD-H Allergies: Reviewed in eD-H Skin Examination: Full skin examination: Patient asked to undress to their comfort level. Verbalized that the provider???s preference is that the patient remove all clothing and that the provider will not examine areas patient elects to keep covered. Patient elects to keep underwear on and have the following examined: scalp, hair, face, ears, neck, chest, axillae, abdomen, back, and upper and lower extremities. Genitalia and buttocks were not examined. Assessment/Plan #. History of DN - Well-healed scars per skin history. - No evidence of recurrence; will continue to monitor. # Solar lentigines - 0.3-0.6cm light-brown evenly pigmented, well-demarcated macules in a photodistributed pattern on the face, trunk and extremities. - Recommend diligent sun protection (hats/shade/clothing/sunscreen) - Discussed warning signs of skin cancer # High density Melanocytic nevi - Scattered medium-brown macules and papules on the head, trunk, and extremities. - Morphology reassuring for benign nevi. - Reassured of benign appearance on exam today. # Avila angiomas - scattered on the trunk and extremities are bright red smooth papules. - Reassured of the benign nature of these lesions. No treatment needed. #. Dermatofibromas - 4mm brown papules on the right calf, right medial concepcion and left medial concepcion with stellate appearence on dermoscopy Counseled: Dermatofibromas, benign/non-cancerous growth of dermal dendritic histiocyte cells, commonly arise at site of a minor injury, no tx required #. Cosmetic concerns - antiaging -Briefly discussed retinols, vitamin C, niacinamide, and hyaluronic acid for skin care regimen and anti aging benefits -Recommend gentle exfoliating acid wash Other: ??? Sun protection discussed (protective clothing and SPF30+ broad-spectrum sunscreen) RTC: 1 year for FSE otherwise PRN []Note routed to certified legal secretary specialist [x]Recall placed in scheduling system []Appointment scheduled at checkout Scribe attestation: Kathi Lowery RN and Patty Fernandez] have performed the documentation forthis encounter in the presence of and acting as a scribe for Lisa Murphy MD. I performed the above scribed service and agree with the accuracy of the documentation in this encounter. Reviewed and signed by: Lisa Murphy MD Dermatology [facility] documented in this encounter Plan of Treatment Not on file documented as of this encounter Visit Diagnoses Diagnosis Skin cancer screening Screening for malignant neoplasm of the skin History of dysplastic nevus Personal history of diseases of skin and subcutaneous tissue Melanocytic nevus, unspecified location Dermatofibroma Benign neoplasm of skin, site unspecified Lentigines Other dyschromia Avila angioma Nevus, non-neoplastic documented in this encounter Care Teams Senior Interaction Designer Relationship Specialty Start Date End Date Arabella Villarreal MD [address] [place] [address] PCP - General 09/16/11 documented as of this encounter
--- OUTSIDE RECORDS SUMMARY | 2024-04-07 01:39 | XMS_ITS | Encounter Summary ---
Author Organization [facility] [place] [address] Care Team Providers Care Recreation Program Coordinator Name Role Phone Arabella Villarreal MD Primary Care Provider [phone] Encounter Details Date Type Department Care Team (Late st Contact Info) Description 06/03/2023 8:45 AM EDT Office Visit Dermatology at [facility] [address] [place] [address] Lisa Murphy MD [facility] [place] [address] [place] [address] Neoplasm of unspecified behavior of bone, soft tissue, and skin; Contact dermatitis, unspecified contact dermatitis type, unspecified trigger Social History Tobacco Use Types Packs/Day Years [...] Progress Notes * Lisa Murphy MD - 06/03/2023 8:45 AM EDT Images from the original note were [...] of Present Illness: Chasity Gallo is a 42 y.o. Patient returns to clinic today for a spotcheck of a spot of concern on the forearm: - Spot on left forearm, appeared as is freckle last summer. This is getting darker and getting bigger which raises her concern. The lesion is not itchy, tender, and no bleeding. - Skin flare on the left wrist, Hydrocortisone cream helps calms the area. She questions how to best proceed with treating. Last visit at Dermatology: 04/02/2022 Last visit with this provider: 04/02/2022 Medications: Reviewed in eD-H Allergies: Reviewed in eD-H Skin Examination: Focused skin examination of the left forearm and wrist was normal with the exception of the findings below. Assessment/Plan # Neoplasm of unspecified behavior of skin, ddx Nevus vs SK r/o Atypia - 3mm brown papule with darkbrown pigment globules within it with history of recent change on the left forearm (Figure 1) - Joint decision to pursue shave biopsy today to clarify nature of lesion - Shave biopsy procedure note: The patient's consent was obtained. Risk of incomplete removal, scarring, bleeding, infection, and pain were reviewed. Alcohol preparation was used. Anesthesia was obtained with 1.0% lidocaine with epinephrine. A shave biopsy was obtained and the specimen was sent to pathology for histologic evaluation. Hemostasis was obtained with AlCl and/or electrocautery. Vaseline and bandage were applied. Wound care was reviewed. There were no complications; the patient tolerated the procedure well. # Favor contact dermatitis - on left wrist, light pink slightly lichenified plaque - Discussed skin findings on exam. - Okay to continue OTC Hydrocortisone cream - Offered Rx triamcinolone (Kenalog) 0.1% cream, however pt will contact clinic if Hydrocortisone fails to improve dermatitis to then proceed with rx. Figure 1 Figure 2 Photo(s) taken and charted with patient's verbal consent. Other: OTC skin products discussed RTC: Pending pathology []Note routed to trade union secretary []Recall placed in scheduling system []Appointment scheduled at checkout Scribe attestation: IGOR Mae has performed the documentation for this encounter in thepresence of and acting as a scribe for Lisa Murphy MD. I performed the above scribed service and agree with the accuracy of the documentation in this encounter. 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 Murphy Moderately atypical nevus on the left forearm, recommend monitor at future skin exams, should be yearly Hi Daisy, can you please let pt know? documented in this encounter Plan of Treatment Not on file documented as of this encounter Procedures Procedure Name Priority Date/Time Associated Diagnosis Comments SPECIMEN TO PATHOLOGY Routine 06/03/2023 9:00 AM EDT Neoplasm of unspecified behavior of bone, soft tissue, and skin SURGICAL PATHOLOGY REPORT Routine 06/03/2023 8:52 AM EDT documented in this encounter Results * Specimen to Pathology (06/03/2023 9:00 AM EDT) AP Specimen 06/03/2023 9:00 AM EDT 06/03/2023 9:00 AM EDT Narrative [facility] - 06/03/2023 9:00 AM EDT Specimen requisition ordered. ??Separate Pathology report to follow Lisa Murphy MD PATHOLOGY/CYTOLOGY Sandra PECK [facility] [place] [address] * Surgical Pathology Report (06/03/2023 8:52 AM EDT) Final Diagnosis [id number] ? Location: [facility] The signing pathologist has (i) examined the relevant preparation(s) for the specimen(s) and (ii) rendered or confirmed the diagnosis(es). . 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 of Pathology, [place] [address] Global Supply Chain Vice President: Steven Don MD, FCAP, ??CLIA Certificate: [id number] ADDITIONAL STUDIES Immunohistochemistry Studies: Formalin-fixed, paraffin-embedded tissue sections are studied using the polymer technique with appropriate positive and negative controls. ?These IHC studies provide the pathologist with adjunctive diagnostic information. Antibody specificity has been verified by testing antibodies on a series of in-house tissues with known immunohistochemical performance characteristics. The clinical interpretation of any antibody positive staining or its absence is evaluated within the context of clinical presentation, morphology, histopathological criteria and other diagnostic tests. Block ? Antibody ?Result (Positive/Negative) A1 ? SOX10 ?Highlights melanocytes ? PRAME ?? Negative ? [id number] ?? Positive SPECIMEN(S) SUBMITTED A - Left forearm, skin shave biopsy (1) CLINICAL INFORMATION Nevus versus SK rule out atypia - 3 mm brown papule with dark brown pigment globules within it with history of recent change on the left forearm SPECIMEN PROCESSING A - Labeled/Fixative: Patient demographics, formalin. Quantity/Size: ??Single, 0.7 x 0.4 x 0.1 cm. Tissue Description: Shave of dawn skin with a 0.2 x 0.2 cm dawn-brown macule. Sections/Processing: Inked, bisected and entirely submitted in 1 cassette labeled A1. ??jnr 06/16/2023 12:01 PM EDT [facility] SPECIMEN FROM SKIN / Unknown 06/03/2023 8:52 AM EDT 06/03/2023 8:52 AM EDT Lisa Murphy MD PATHOLOGY/CYTOLOGY O LIV [facility] [place] [address] documented in this encounter Visit Diagnoses Diagnosis Neoplasm of unspecified behavior of bone, soft tissue, and skin Contact dermatitis, unspecified contact dermatitis type, unspecified trigger documented in this encounter Care Teams Recreation Program Coordinator Relationship Specialty Start Date End Date Arabella Villarreal MD [address] [place] [address] PCP - General 09/16/11 documented as of this encounter
--- OUTSIDE RECORDS SUMMARY | 2024-04-07 01:40 | XMS_ITS | Encounter Summary ---
[place] [address] Care Team Providers Care Distribution Designer Name Role Phone Arabella Villarreal MD Primary Care Provider [phone] Encounter Details Date Type Department Care Team (Latest Contact Info) Description 03/23/2015 9:15 AM EST - 03/23/2015 11:59 PM [facility] Hospital Encounter [place]ology [place] [address] Hodgkin's lymphoma; Research study patient Discharge Disposition: Home Social History Tobacco Use [...] Sig Dispensed Refills Start Date End Date Lysine HCl 500 mg TabIndications:Cold sores Take 500 mg by mouth 2 times daily. Reported on 03/18/2016 Indications: Cold sores docusate sodium (COLACE) 50 mg Capsule Take by mouth daily. Reported on 03/18/2016 03/17/2017 aspirin 81 mg Tablet, Delayed Release (E.C.) Take 81 mg by mouth daily. Reported on 03/18/2016 03/17/2017 ranitidine (ZANTAC) 150 mg tabletIndications:ga stroesophageal reflux disease Take 150 mg by mouth daily as needed. Indications: Gastroesophageal Reflux 04/02/19 23 vitamin 27 & [id number] 60 mg iron-1 mg tablet Take 1 tablet by mouth daily. 04/02/2022 documented as of this encounter Plan of Treatment Not on file documented as of this encounter Procedures Procedure Name Priority Date/Time Associated Diagnosis Comments HEMOGRAM STAT 03/23/2015 11:36 AM EST Hodgkin's lymphoma DIFFERENTIAL, AUTOMATED STAT 03/23/2015 11:36 AM EST Hodgkin's lymphoma SEDIMENTATION RATE STAT 03/23/2015 11 :36 AM EST Hodgkin's lymphoma CBC (WITH DIFF) STAT 03/23/2015 11:36 AM EST Hodgkin's lymphoma COMPREHENSIVE METABOLIC PANEL STAT 03/23/2015 11:36 AM EST Hodgkin's lymphoma documented in this encounter Results * Differential, Automated (03/23/2015 11:36 AM EST) Neutrophil % 59.1 % CERNER MILLENNIUM Neutrophil Absolute 2.18 1.50 - 6.30 x10(3)/mcL CERNER MILLENNIUM Lymph % 28.3 % CERNER MILLENNIUM Lymphocytes Abs 1.0 1.0 - 3.6 x10(3)/mcL CERNER MILLENNIUM Monocyte % 8.2 % CERNER MILLENNIUM Monocyte Abs 0.3 0.2 - 1.0 x10(3)/mcL CERNER MILLENNIUM Eos % 3.3 % CERNER MILLENNIUM Eosinophils Abs 0.1 0.0 - 0.5 x10(3)/mcL CERNER MILLENNIUM Basophil % 1.1 % CERNER MILLENNIUM Baso Absolute 0.0 0.0 - 0.2 x10(3)/mcL CERNER MILLENNIUM Immature Gran % 0.00 % CERN ER MILLENNIUM Comment: Immature granulocytes(IG's)percentage and absolute count will include metamyelocytes, myelocytes, and promyelocytes. Blood smears from CBCs yielding IG's will be scanned manually for concordance. If this scan disagrees with the automated IG or if promyelocytes are noted, a manual differential will be performed. Immature Gran Absolute 0.00 0.00 - 0.05 x10(3)/mcL CERNER MILLENNIUM Blood specimen (specimen) 03/23/2015 11:36 AM EST 03/23/2015 11:39 AM EST Narrative Resulting Agency Comment Spec In Lab Myron Cruz MD HEMATOLOGY ORDERAB LES Performing Organization Address City/[facility]/ZIP Co de Phone Number MAGDALENA CARTER * (ABNORMAL) Hemogram (03/23/2015 11:36 AM EST) White Blood Cell 3.7(L) 4.0 - 10.0 x10(3)/mc L CERNER MILLENNIUM Red Blood Cell 4.17 3.93 - 5.22 x10(6)/mc L CERNER MILLENNIUM Hemoglobin 12.6 11.2 - 15.7 gm/dL CERNER MILLENNIUM Hematocrit 36.7 34.0 - 45.0 % CERNER MILLENNIUM Mean Cell Volume 88.0 79.0 - 94.0 fL CERNER MILLENNIUM Mean Cell Hemoglobin 30.2 26.6 - 32.2 pg CERNER MILLENNIUM Mean Cell Hemoglobin Concentration 34.3 32.0 - 36.5 gm/dL CERNER MILLENNIUM Platelet 225 145 - 370 x10(3)/mc L CERNER MILLENNIUM RDW Standard Deviation 38.0 35.0 - 46.0 fL CERNER MILLENNIUM RDW coefficient of variation 11.9 10.9 - 14.4 % CERNER MILLENNIUM Mean Platelet Volume 9.2 9.0 - 12.0 fL CERNER MILLENNIUM Blood specimen (specimen) 03/23/2015 11:36 AM EST 03/23/2015 11:39 AM EST Narrative Resulting Agency Comment Spec In Lab Myron Cruz MD HEMATOLOGY ORDERAB LES Performing Organization Address City/[facility]/ZIP Co de Phone Number MAGDALENA CARTER * Sedimentation rate (03/23/2015 11:36 AM EST) Sedimentation Rate Automated 5 0 - 20 mm/hr CERNER MILLENNIUM Blood specimen (specimen) 03/23/2015 11:36 AM EST 03/23/2015 11:39 AM EST Narrative Resulting Agency Comment Spec In Lab Myron Cruz MD HEMATOLOGY ORDERAB LES CERNER MILLENNIUM * (ABNORMAL) Comprehensive metabolic panel (non-fasting) (03/23/2015 11:36 AM EST) Glucose 84 65 - 199 mg/dL CERNER MILLENNIUM Comment:Diabetes: >=200 mg/d L plus symptoms Blood Urea Nitrogen 19(H) 8 - 18 mg/dL CERNER MILLENNIUM Creatinine 0.75 0.70 - 1.20 mg/dL CERNER MILLENNIUM Comment: Please note that the pediatric reference intervals supplied above were not validated at [facility]. Results from pediatric patients should be interpreted in conjunction to the patient's age, height and muscle mass. Sodium 139 135 - 145 mmol/L CERNER MILLENNIUM Potassium 4.2 3.5 - 5.0 mmol/L CERNER MILLENNIUM Comment: Please note: ??Patients with WBC >100,000 may have falsely elevated Potassium levels. ??For accurate Potassium quantification in these patients send serum separator tube (gold top) for subsequent determinations. ??Contact the Clinical Chemistry Laboratory if there are any questions. Chloride 102 98 - 107 mmol/L CERNER MILLENNIUM Carbon Dioxide 26 22 - 31 mmol/L CERNER MILLENNIUM Anion Gap 11 5 - 15 mmol/L CERNER MILLENNIUM Calcium 9.1 8.5 - 10.5 mg/dL CERNER MILLENNIUM Protein, Total 6.7 6.1 - 8.0 gm/dL CERNER MILLENNIUM Albumin 4.3 3.2 - 5.2 gm/dL CERNER MILLENNIUM Aspartate Aminotransferase 19 0 - 30 unit/L CERNER MILLENNIUM Alanine Aminotransferase 16 0 - 30 unit/L CERNER MILLENNIUM Alkaline Phosphatase 52 40 - 104 unit/L CERNER MILLENNIUM Bilirubin, Total 0.4 0.2 - 1.3 mg/dL CERNER MILLENNIUM Bilirubin, Direct 0.1 0.0 - 0.3 mg/dL CERNER MILLENNIUM Est Glomerular Filtration Rate >60 >=60 CERNER MILLENNIUM Comment: This estimated GFR (eGFR) value was calculated using the MDRD equation which has been validated on patients between the ages of 18 and 70. The MDRD should not be used to assess kidney function in patients < 18 years of age or in patients with extremes of body mass, or in patients with acute kidney failure. This value should be multiplied by 1.2 for patients. For further information please copy and paste the following links into your internet browser. http://[email or web address]/DHnkdep [email or web address]://[email or web address] Blood specimen (specimen) 03/23/2015 11:36 AM EST 03/23/2015 11:39 AM EST Narrative Resulting Agency Comment Spec In Lab Myron Cruz MD CHEMISTRY ORDERABL ES [facility] documented in this encounter Visit Diagnoses Diagnosis Hodgkin's lymphoma Hodgkin's disease, unspecified Research study patient Reserved for inherently not codable concepts WITHOUT codable children documented in this encounter Care Teams Distribution Designer Relationship Specialty Start Date End Date Arabella Villarreal MD [address] [place] [address] PCP - General 09/16/11 documented as of this encounter
--- OUTSIDE RECORDS SUMMARY | 2024-04-07 01:40 | XMS_ITS | Encounter Summary ---
[place] [address] Care Team Providers Care Shaft Tender Name Role Phone Arabella Villarreal MD Primary Care Provider [phone] Encounter Details Date Type Department Care Team (Late st Contact Info) Description 07/15/2013 Telephone Hematology [place] [address] Olga Espinoza, RN Social History Tobacco Use Types Packs/Day Years Used Date Smoking Tobacco: Never Smokeless Tobacco: Never Alcohol Use Standard Drinks/Week Comments No 0 (1 standard drink = 0.6 oz pur e alcohol) Sex and Gender Information Value Date Recorded Sex Assigned at Not on file Gender Identity Not on file Sexual Orientation Not on file documented as of this encounter Miscellaneous Notes * Addendum Note - Olga Espinoza RN - 07/15/2013 2:04 PM EDTAddended by: OLGA ESPINOZA on: 07/15/2013 02:04 PM Modules accepted: Orders * Telephone Encounter - Olga Espinoza RN - 07/15/2013 1:45 PM EDT RESEARCH NURSE TELEPHONE NOTE [id number]: Phase II Trial of Response-Adapted Therapy Based on Positron Emission Tomography (PET) for Bulky Stage I and Stage II Classical Hodgkin Lymphoma (HL) Date: 07/15/2013 Time: 1:45 PM Reason for call: Follow-up (home) Received voicemail from patient, stating that her lab work done earlier this week confirmed that she is currently . Per communication with study chair, all imaging will be held until after the patient delivers, at which point CT scanning may resume per protocol. Message left on patient's name identified voicemail stating that appointment for August will be forthcoming, but that no follow-upimaging will be conducted at that visit. Advised to contact this office for any questions/concerns. documented in this encounter Plan of Treatment Scheduled Orders Name Type Priority Associated Diagnoses Orde r Schedule Miscellaneous Lab request Lab Routine Examination of participant in clinical trial Expected: 09/20/2013 (Approximate), Expires: 10/01/2013 documented as of this encounter Visit Diagnoses Diagnosis Examination of participant in clinical trial- Primary documented in this encounter Care Teams Shaft Tender Relationship Specialty Start Date End Date Arabella Villarreal MD [address] [place] [address] PCP - General 09/16/11 documented as of this encounter
--- OUTSIDE RECORDS SUMMARY | 2024-04-07 01:40 | XMS_ITS | Encounter Summary ---
[place] [address] Care Team Providers Care Manager Clinical Pharmacy Name Role Phone Arabella Villarreal MD Primary Care Provider [phone] Encounter Details Date Type Department Care Team (Latest Contact Info) Description 03/18/2016 1:19 PM EST - 03/18/2016 11:59 PM EST Hospital Encounter [place]ematology [place] [address] Hodgkin lymphoma, unspecified Hodgkin lymphoma type, unspecified body region Discharge Disposition: Home Social History Tobacco Use [...] Sig Dispensed Refills Start Date End Date FLUTICASONE PROPIONATE (FLONASE ALLERGY RELIEF NASL) by [...] Gastroesophageal Reflux 04/02/19 23 vitamin 27 & [id number] 60 mg iron-1 mg tablet Take 1 tablet by mouth daily. 04/02/2022 documented as of this encounter Plan of Treatment Not on file documented as of this encounter Procedures Procedure Name Priority Date/Time Associated Diagnosis Comments HEMOGRAM STAT 03/18/2016 1:23 PM EST Hodgkin lymphoma, unspecified Hodgkin lymphoma type, unspecified body region DIFFERENTIAL, AUTOMATED STAT 03/18/2016 1:23 PM EST Hodgkin lymphoma, unspecified Hodgkin lymphoma type, unspecified body region SEDIMENTATION RATE STAT 03/18/2016 1: 23 PM EST Hodgkin lymphoma, unspecified Hodgkin lymphoma type, unspecified body region CBC (WITH DIFF) STAT 03/18/2016 1:23 PM EST Hodgkin lymphoma, unspecified Hodgkin lymphoma type, unspecified body region COMPREHENSIVE METABOLIC PANEL STAT 03/18/2016 1:23 PM EST Hodgkin lymphoma, unspecified Hodgkin lymphoma type, unspecified body region documented in this encounter Results * Differential, Automated (03/18/2016 1:23 PM EST) Neutrophil % 75.7 % [facility] Neutrophil Absolute 4.96 1.70 - 6.10 x10(3)/[facility] Lymph % 17.9 % [facility] Lymphocytes Abs 1.2 0.9 - 3.2 x10(3)/[facility] Monocyte % 4.0 % [facility] Monocyte Abs 0.3 0.3 - 0.9 x10(3)/[facility] Eos % 1.2 % [facility] Eosinophils Abs 0.1 0.0 - 0.4 x10(3)/[facility] Basophil % 0.9 % [facility] Baso Absolute 0.1 0.0 - 0.1 x10(3)/[facility] Immature Gran % 0.30 % [facility] Comment: Immature granulocytes(IG's)percentage and absolute count will include metamyelocytes, myelocytes, and promyelocytes. Blood smears from CBCs yielding IG's will be scanned manually for concordance. If this scan disagrees with the automated IG or if promyelocytes are noted, a manual differential will be performed. Immature Gran Absolute 0.02 0.00 - 0.04 x10(3)/[facility] Blood specimen (specimen) 03/18/2016 1:23 PM EST 03/18/2016 1:31 PM EST Narrative Resulting Agency Comment Spec In Lab Myron Cruz MD HEMATOLOGY ORDERAB LES Performing Organization Address City/State/[facility] Co de Phone Number [facility] [place] [address] * (ABNORMAL) Hemogram (03/18/2016 1:23 PM EST) White Blood Cell 6.6 4.0 - 9.5 x10(3)/mc L [facility] Red Blood Cell 3.87(L) 4.00 - 5.21 x10(6)/mc L [facility] Hemoglobin 12.0 11.7 - 15.5 gm/dL [facility] Hematocrit 35.1(L) 35.7 - 45.8 % [facility] Mean Cell Volume 90.7 82.6 - 94.4 fL [facility] Mean Cell Hemoglobin 31.0 27.1 - 32.0 pg [facility] Mean Cell Hemoglobin Concentration 34.2 31.7 - 35.0 gm/dL [facility] Platelet 278 145 - 357 x10(3)/mc L [facility] RDW Standard Deviation 39.4 37.0 - 46.0 fL [facility] RDW coefficient of variation 11.9 11.5 - 14.1 % [facility] Mean Platelet Volume 9.5 7.6 - 12.9 fL [facility] NRBC% auto 0.0 % [facility] NRBC Absolute 0.000 0.000 - 0.000 x10(3)/mc L [facility] Blood specimen (specimen) 03/18/2016 1:23 PM EST 03/18/2016 1:31 PM EST Narrative Resulting Agency Comment Spec In Lab Myron Cruz MD HEMATOLOGY ORDERAB LES Performing Organization Address [facility] [address]/ZIP Co de Phone Number [facility] [place] [address] * Sedimentation rate (03/18/2016 1:23 PM EST) [facility] Sedimentation Rate Automated 7 0 - 20 mm/hr [facility] Blood specimen (specimen) 03/18/2016 1:23 PM EST 03/18/2016 1:31 PM EST Narrative Resulting Agency Comment Spec In Lab Myron Cruz MD HEMATOLOGY ORDERAB LES Performing Organization Address [facility] [address]/[facility] Co de Phone Number [facility] [place] [address] * Comprehensive metabolic panel (non-fasting) (03/18/2016 1:23 PM EST) [facility] Glucose 96 65 - 199 mg/dL [facility] Comment:Diabetes: >=200 mg/d L plus symptoms Blood Urea Nitrogen 17 8 - 18 mg/dL [facility] Creatinine 0.75 0.70 - 1.20 mg/dL [facility] Comment: Please note that the pediatric reference intervals supplied above were not validated at [facility]. Results from pediatric patients should be interpreted in conjunction to the patient's age, height and muscle mass. Sodium 142 135 - 145 mmol/L [facility] Potassium 3.9 3.5 - 5.0 mmol/L [facility] Comment: Please note: ??Patients with WBC >100,000 may have falsely elevated Potassium levels. ??For accurate Potassium quantification in these patients send serum separator tube (gold top) for subsequent determinations. ??Contact the Clinical Chemistry Laboratory if there are any questions. Chloride 103 98 - 107 mmol/L [facility] Carbon Dioxide 26 22 - 31 mmol/L [facility] Anion Gap 13 5 - 15 mmol/L [facility] Calcium 9.3 8.5 - 10.5 mg/dL [facility] Protein, Total 6.8 6.1 - 8.0 gm/dL [facility] Albumin 4.5 3.2 - 5.2 gm/dL [facility] Aspartate Aminotransferase 18 0 - 30 unit/L [facility] Alanine Aminotransferase 14 0 - 30 unit/L [facility] Alkaline Phosphatase 40 40 - 104 unit/L [facility] Bilirubin, Total 0.2 0.2 - 1.3 mg/dL [facility] Bilirubin, Direct 0.1 0.0 - 0.3 mg/dL [facility] Est Glomerular Filtration Rate >60 >=60 [facility] Comment: This estimated GFR (eGFR) value was [...] the following links into your internet browser. [email or web address] Blood specimen (specimen) 03/18/2016 1:23 PM EST 03/18/2016 1:31 PM EST Narrative Resulting Agency Comment Spec In Lab Myron Cruz MD CHEMISTRY ORDERABL ES [facility] [place] [address] documented in this encounter Visit Diagnoses Diagnosis Hodgkin lymphoma, unspecified Hodgkin lymphoma type, unspecified body region documented in this encounter Care Teams Manager Clinical Pharmacy Relationship Specialty Start Date End Date Arabella Villarreal MD [address] [place] [address] PCP - General 09/16/11 documented as of this encounter
--- OUTSIDE RECORDS SUMMARY | 2024-04-07 01:40 | XMS_ITS | Encounter Summary ---
Author Organization [facility] [place] [address] Care Team Providers Care Planer Tailer Name Role Phone Arabella Villarreal MD Primary Care Provider [phone] Reason for Referral * Diagnostic Test (Routine) - Closed Specialty Diagnoses / Procedures Referred By Contac t Referred To Contact Radiology Diagnoses Hodgkin's lymphoma Procedures CT Chest, Abdomen, & Pelvis With Contrast (GENERIC) Myron Cruz MD [facility] [address] [place] [address] [place] [address] Referral ID Status Reason Start Date Expiration Date V isits Requested Visits Authorized [id number] Closed Specialty Service Requested 03/16/2015 05/14/2015 1 1 Encounter Details Date Type Department Care Team (Late st Contact Info) Description 12/27/2014 Orders Only [place]ematology [place] [address] Myron Cruz MD [facility] [address] [place] [address] Hodgkin's lymphoma; Research study patient Social History Tobacco Use Types Packs/Day Years [...] on file documented as of this encounter Results * Sedimentation rate (03/23/2015 11:36 AM EST) Sedimentation Rate Automated 5 0 - 20 mm/hr [facility] Blood specimen (specimen) 03/23/2015 11:36 AM EST 03/23/2015 11:39 AM EST Narrative Resulting Agency Comment Spec In Lab Myron Cruz MD HEMATOLOGY ORDERAB LES [facility] * (ABNORMAL) Comprehensive metabolic panel (non-fasting) (03/23/2015 11:36 AM EST) Glucose 84 65 - 199 mg/dL [facility] Comment:Diabetes: >=200 mg/d L plus symptoms Blood Urea Nitrogen 19(H) 8 - 18 mg/dL [facility] Creatinine 0.75 0.70 - 1.20 mg/dL [facility] Comment: Please note that the pediatric reference intervals supplied above were not validated at [facility]. Results from pediatric patients should be interpreted [...] the following links into your internet browser. [email or web address] Blood specimen (specimen) 03/23/2015 11:36 AM EST 03/23/2015 11:39 AM EST Narrative Resulting Agency Comment Spec In Lab Myron Cruz MD CHEMISTRY ORDERABL ES [facility] * CT Chest, Abdomen, & Pelvis With Contrast (GENERIC) (03/23/2015 11:07 AM EST) Anatomical Region Laterality Modality Computed Tomogra phy Impressions 03/23/2015 11:47 AM EST IMPRESSION: Previous indicator lesions smaller. No new or enlarging lymph nodes or other interval suspicious findings. New bilateral nodular and serpiginous soft tissue throughout both breasts appears compatible with dense breast fibroglandular tissue, likely reflects breast feeding status. Narrative 03/23/2015 11:47 AM EST EXAMINATION: CT CHEST ABDOMEN AND PELVIS WITH CONTRAST CLINICAL HISTORY: history of hodgkin's lymphoma, please r/o recurrence, lymphoma study patient--please provide bi-dimensional measurements, please DO NOT use RECIST criteria TECHNIQUE: Helical CT of the chest, abdomen, and pelvis was performed following intravenous administration of 110 ml of Omnipaque 350 and oral contrast. COMPARISON: 12/24/2013. FINDINGS: Chest Pulmonary parenchyma and airways: No new findings. Pleura: No pleural effusion Cardiovascular: Unchanged. No pericardial effusion Mediastinum and patrica: No new or enlarging mediastinal or hilar lymph nodes. Lesion 1: Mediastinal lymphadenopathy Previous scan 12/24/2013: series 2 image 17: 20 x 9 mm. Now: Series 2 image 16: 15 x 9 mm. Lesion 3: Mediastinal lymphadenopathy Previous scan 12/24/2013: series 2 image 24:29 x 6 mm Now: Series 2 image 24: 28 x 5 mm. Lesion 3: Right paratracheal lymph node lymph node. Previous scan 12/24/2013 series 2 image 14: 13 x 12 mm. Now: Series 2 image 13: 10 x 8 mm. Chest wall: New bilateral nodular and serpiginous soft tissue throughout both breasts. Abdomen/pelvis Liver: Unchanged subcentimeter hepatic hypodensities, statistically most likely cysts. No new or enlarging hepatic lesions. Bile ducts: Normal caliber Gallbladder: Unremarkable. Pancreas: Normal Spleen: Normal Adrenals: Normal Kidneys and urinary tract: Normal symmetric contrast enhancement. No collecting system or ureteral dilatation. Unremarkable urinary bladder. Lymph nodes: No enlarged abdominal or pelvic lymph nodes Bowel: Normal caliber, no wall thickening Peritoneum and mesentery: No ascites or free air. No fluid collection Reproductive organs: Not significantly different, within limits of CT. Osseous structures: No suspicious lesions. Procedure Note Radha Trujillo MD - 03/23/2015 EXAMINATION: CT CHEST ABDOMEN AND PELVIS WITH CONTRAST CLINICAL HISTORY: history of hodgkin's lymphoma, please r/o recurrence,lymphoma study patient--please provide bi-dimensional measurements, please DO NOTuse RECIST criteria TECHNIQUE: Helical CT of the chest, abdomen, and pelvis was performedfollowing intravenous administration of 110 ml of Omnipaque 350 and oral contrast. COMPARISON: 12/24/2013. FINDINGS: Chest Pulmonary parenchyma and airways: No new findings. Pleura: No pleural effusion Cardiovascular: Unchanged. No pericardial effusion Mediastinum and patrica: No new or enlarging mediastinal or hilar lymphnodes. Lesion 1: Mediastinal lymphadenopathy Previous scan 12/24/2013: series 2 image 17: 20 x 9 mm. Now: Series 2 image 16: 15 x 9 mm. Lesion 3: Mediastinal lymphadenopathy Previous scan 12/24/2013: series 2 image 24:29 x 6 mm Now: Series 2 image 24: 28 x 5 mm. Lesion 3: Right paratracheal lymph node lymph node. Previous scan 12/24/2013 series 2 image 14: 13 x 12 mm. Now: Series 2 image 13: 10 x 8 mm. Chest wall: New bilateral nodular and serpiginous soft tissue throughoutboth breasts. Abdomen/pelvis Liver: Unchanged subcentimeter hepatic hypodensities, statistically mostlikely cysts. No new or enlarging hepatic lesions. Bile ducts: Normal caliber Gallbladder: Unremarkable. Pancreas: Normal Spleen: Normal Adrenals: Normal Kidneys and urinary tract: Normal symmetric contrast enhancement. Nocollecting system or ureteral dilatation. Unremarkable urinary bladder. Lymph nodes: No enlarged abdominal or pelvic lymph nodes Bowel: Normal caliber, no wall thickening Peritoneum and mesentery: No ascites or free air. No fluid collection Reproductive organs: Not significantly different, within limits of CT. Osseous structures: No suspicious lesions. IMPRESSION IMPRESSION: Previous indicator lesions smaller. No new or enlarging lymph nodes orother interval suspicious findings. New bilateral nodular and serpiginous soft tissue throughout bothbreasts appears compatible with dense breast fibroglandular tissue, likelyreflects breast feeding status. Myron Cruz MD IMG CT ORDERABLES documented in this encounter Visit Diagnoses Diagnosis Hodgkin's lymphoma Hodgkin's disease, unspecified Research study patient Reserved for inherently not codable concepts WITHOUT codable children Hodgkin's lymphoma Hodgkin's disease, unspecified documented in this encounter Care Teams Planer Tailer Relationship Specialty Start Date End Date Arabella Villarreal MD [address] [place] [address] PCP - General 09/16/11 documented as of this encounter
--- OUTSIDE RECORDS SUMMARY | 2024-04-07 01:40 | XMS_ITS | Encounter Summary ---
Author Organization [facility] [place] [address] Care Team Providers Care Radiology Specialist Name Role Phone Arabella Villarreal MD Primary Care Provider [phone] Encounter Details Date Type Department Care Team (Late st Contact Info) Description 06/02/2014 Orders Only [place] [address] Myron Cruz MD [facility] [address] HEMATOLOGY [place] [address] Hodgkin's lymphoma Social History Tobacco Use Types Packs/Day Years Used Date Smoking Tobacco: Never Smokeless Tobacco: Never Alcohol Use Standard Drinks/Week Comments No 0 (1 standard drink = 0.6 oz pur e alcohol) Sex and Gender Information Value Date Recorded Sex Assigned at Not on file Gender Identity Not on file Sexual Orientation Not on file documented as of this encounter Plan of Treatment Scheduled Orders Name Type Priority Associated Diagnoses Orde r Schedule CBC (with Diff) Lab STAT Hodgkin's lymphoma Expected: 09/22/2014 (Approximate), Expires: 11/23/2014 Comprehensive metabolic panel (non-fasting) Lab STAT Hodgkin's lymphoma Expected: 09/22/2014 (Approximate), Expires: 11/23/2014 Sedimentation rate Lab STAT Hodgkin's lymphoma Expected: 09/22/2014 (Approximate), Expires: 11/23/2014 documented as of this encounter Visit Diagnoses Diagnosis Hodgkin's lymphoma Hodgkin's disease, unspecified documented in this encounter Care Teams Radiology Specialist Relationship Specialty Start Date End Date Arabella Villarreal MD [address] [place] [address] PCP - General 09/16/11 documented as of this encounter
--- OUTSIDE RECORDS SUMMARY | 2024-04-07 01:40 | XMS_ITS | Encounter Summary ---
Author Organization [facility] [place] [address] Care Team Providers Care Seasoning Mixer Name Role Phone Arabella Villarreal MD Primary Care Provider [phone] Encounter Details Date Type Department Care Team (Late st Contact Info) Description 04/29/2016 Orders Only Hematology [place] [address] Myron Cruz MD [facility] [address] HEMATOLOGY [place] [address] Hodgkin's disease, nodular sclerosis, of intrathoracic lymph nodes Social History Tobacco Use Types Packs/Day Years [...] Schedule CBC (with Diff) Lab STAT Hodgkin's disease, nodular sclerosis, of intrathoracic lymph nodes Expected: 03/17/2017 (Approximate), Expires: 03/28/2017 Comprehensive metabolic panel (non-fasting) Lab STAT Hodgkin's disease, nodular sclerosis, of intrathoracic lymph nodes Expected: 03/17/2017 (Approximate), Expires: 03/28/2017 Sedimentation rate Lab STAT Hodgkin's disease, nodular sclerosis, of intrathoracic lymph nodes Expected: 03/17/2017 (Approximate), Expires: 03/28/2017 documented as of this encounter Visit Diagnoses Diagnosis Hodgkin's disease, nodular sclerosis, of intrathoracic lymph nodes documented in this encounter Care Teams Seasoning Mixer Relationship Specialty Start Date End Date Arabella Villarreal MD [address] [facility] [place] [address] PCP - General 09/16/11 documented as of this encounter
--- OUTSIDE RECORDS SUMMARY | 2024-04-07 01:40 | XMS_ITS | Encounter Summary ---
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 Reported on 03/18/2016 Indications: Cold sores pyridoxine, vitamin B6, (B-6) 100 mg Tablet Take 100 mg by mouth daily. 04/02/2022 ranitidine (ZANTAC) 150 mg tabletIndications:ga stroesophageal reflux disease Take 150 mg by mouth daily as needed. Indications: Gastroesophageal Reflux 04/02/19 23 vitamin 27 & [id number] 60 mg iron-1 mg tablet Take 1 tablet by mouth daily. 04/02/2022 documented as of this encounter Plan of Treatment Scheduled Orders Name Type Priority Associated Diagnoses Orde r Schedule CBC (with Diff) Lab STAT Hodgkin's disease, nodular sclerosis, of intrathoracic lymph nodes 1 Occurrences starting 03/17/2017 until 03/17/2017 Comprehensive metabolic panel (non-fasting) Lab STAT Hodgkin's disease, nodular sclerosis, of intrathoracic lymph nodes 1 Occurrences starting 03/17/2017 until 03/17/2017 Sedimentation rate Lab STAT Hodgkin's disease, nodular sclerosis, of intrathoracic lymph nodes 1 Occurrences starting 03/17/2017 until 03/17/2017 documented as of this encounter Procedures Procedure Name Priority Date/Time Associated Diagnosis Comments HEMOGRAM STAT 03/17/2017 11:57 AM EST 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 DIFFERENTIAL, AUTOMATED STAT 03/17/2017 11:57 AM EST 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 SEDIMENTATION RATE STAT 03/17/2017 11 :57 AM EST 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 CBC (WITH DIFF) STAT 03/17/2017 11:57 AM EST 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 COMPREHENSIVE METABOLIC PANEL STAT 03/17/2017 11:57 AM EST 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0 - 0.4 x10(3)/[facility] Basophil % 2.2 % [facility] Baso Absolute 0.1 0.0 - 0.1 x10(3)/[facility] Immature Gran % 0.30 % [facility] Comment: Immature granulocytes(IG's)percentage and absolute count will include metamyelocytes, myelocytes, and promyelocytes. Blood smears from CBCs yielding IG's will be scanned manually for concordance. If this scan disagrees with the automated IG or if promyelocytes are noted, a manual differential will be performed. Immature Gran Absolute 0.01 0.00 - 0.04 x10(3)/[facility] Blood specimen (specimen) 03/17/2017 11:57 AM EST 03/17/2017 12:06 PM EST Narrative Resulting Agency Comment Spec In Lab Austin Lauren MD HEMATOLOGY ORDER CAMI [facility] [place] [address] * (ABNORMAL) Hemogram (03/17/2017 11:57 AM EST) White Blood Cell 3.7(L) 4.0 - 9.5 x10(3)/mc L [facility] Red Blood Cell 3.74(L) 4.00 - 5.21 x10(6)/mc L [facility] Hemoglobin 11.6(L) 11.7 - 15.5 gm/dL [facility] Hematocrit 34.5(L) 35.7 - 45.8 % [facility] Mean Cell Volume 92.2 82.6 - 94.4 fL [facility] Mean Cell Hemoglobin 31.0 27.1 - 32.0 pg [facility] Mean Cell Hemoglobin Concentration 33.6 31.7 - 35.0 gm/dL [facility] Platelet 253 145 - 357 x10(3)/mc L [facility] RDW Standard Deviation 41.0 37.0 - 46.0 [facility] RDW coefficient of variation 12.0 11.5 - 14.1 % [facility] Mean Platelet Volume 9.3 7.6 - 12.9 [facility] NRBC% auto 0.0 % [facility] NRBC Absolute 0.000 0.000 - 0.000 x10(3)/mc L [facility] Blood specimen (specimen) 03/17/2017 11:57 AM EST 03/17/2017 12:06 PM EST Narrative Resulting Agency Comment Spec In Lab Austin Lauren MD HEMATOLOGY ORDER CAMI Performing Organization Address City/[facility] Co de Phone Number [facility] [place] [address] * Sedimentation rate (03/17/2017 11:57 AM EST) Sedimentation Rate Automated 7 0 - 20 mm/hr [facility] Blood specimen (specimen) 03/17/2017 11:57 AM EST 03/17/2017 12:06 PM EST Narrative Resulting Agency Comment Spec In Lab Austin Lauren MD HEMATOLOGY ORDER CAMI Performing Organization Address City/[facility]/ZIP Co de Phone Number [facility] [place] [address] * Comprehensive metabolic panel (non-fasting) (03/17/2017 11:57 AM EST) Glucose 98 65 - 199 mg/dL [facility] Comment:Diabetes: >=200 mg/d L plus symptoms Blood Urea Nitrogen 16 8 - 18 mg/dL [facility] Creatinine 0.74 0.70 - 1.20 mg/dL [facility] Sodium 140 135 - 145 mmol/L [facility] Potassium 4.0 3.5 - 5.0 mmol/L [facility] Comment: Please note: ??Patients with WBC >100,000 may have falsely elevated Potassium levels. ??For accurate Potassium quantification in these patients send serum separator tube (gold top) for subsequent determinations. ??Contact the Clinical Chemistry Laboratory if there are any questions. Chloride 103 98 - 107 mmol/L [facility] Carbon Dioxide 27 22 - 31 mmol/L [facility] Anion Gap 10 5 - 15 mmol/L [facility] Calcium 9.2 8.5 - 10.5 mg/dL [facility] Protein, Total 6.5 6.1 - 8.0 gm/dL [facility] Albumin 4.2 3.2 - 5.2 gm/dL [facility] Aspartate Aminotransferase 16 0 - 30 unit/L [facility] Alanine Aminotransferase 16 0 - 30 unit/L [facility] Alkaline Phosphatase 41 40 - 104 unit/L [facility] Bilirubin, Total 0.2 0.2 - 1.3 mg/dL [facility] Est Glomerular Filtration Rate >60 >=60 [facility] Comment: The reported eGFR should be multiplied by 1.2 for patients. The MDRD is not an appropriate measure of renal function for patients with body mass extremes or in patients with acute kidney failure. 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
--- OUTSIDE RECORDS SUMMARY | 2024-04-07 01:40 | XMS_ITS | Encounter Summary ---
[place] [address] Care Team Providers Care Social Media Campaign Manager Name Role Phone Arabella Villarreal MD Primary Care Provider [phone] Encounter Details Date Type Department Care Team (Late st Contact Info) Description 03/22/2013 Notes Only Hematology [place] [address] Olga Espinoza, RN Social History Tobacco Use [...] as of this encounter Progress Notes * Olga Espinoza, RN - 03/22/2013 4:48 PM EST RESEARCH NURSE INFORMED CONSENT NOTE Reconsent [id number]: Phase II Trial of Response-Adapted Therapy Based on Positron Emission Tomography (PET) for Bulky Stage I and Stage II Classical Hodgkin Lymphoma (HL) Date: 03/22/2013 Objective of visit: Meet with Chasity Gallo in clinic to provide information regarding changes toprotocol [id number], answer questions or concerns about study plan and evaluate interest in continued study participation. Information Provided: The patient was given the written consent form and was offered adequate time to review the information. Specific changes highlighted to include personal information collected. She was given adequate time to ask questions and review concerns, all of which were answered to her satisfaction. Assessment/Outcome: Patient verbalized understanding of protocol changes and consents to continued participation. Patient signed and dated consent, copy given to patient. Original, signed informed consent document scanned into patient???s electronic medical record and original hard copy given to RKAESH Rosenbaum. Plan: 1. Patient consents to continued participation in study [id number]. 2. Next visit to be scheduled per protocol. Follow-up schedule reviewed with patient, as well as contact information for questions/concerns. documented in this encounter Plan of Treatment Not on file documented as of this encounter Visit Diagnoses Not on filedocumented in this encounter Care Teams Social Media Campaign Manager Relationship Specialty Start Date End Date Arabella Villarreal MD [address] [place] [address] PCP - General 09/16/11 documented as of this encounter
--- OUTSIDE RECORDS SUMMARY | 2024-04-07 01:40 | XMS_ITS | Encounter Summary ---
Author Organization [facility] [place] [address] Care Team Providers Care Patient Attendant Name Role Phone Arabella Villarreal MD Primary Care Provider [phone] Encounter Details Date Type Department Care Team (Latest Contact Info) Description 03/22/2013 1:45 PM EST Ancillary Appointment Hematology [place] [id number] CLINIC, Myron Denney MD [facility] [address] [place] [address] Exam for clinical research; Hodgkin's lymphoma Discharge Disposition: Home Social History Tobacco Use [...] as of this encounter Visit Diagnoses Diagnosis Exam for clinical research Examination of participant in clinical trial Hodgkin's lymphoma Hodgkin's disease, unspecified documented in this encounter Care Teams Patient Attendant Relationship Specialty Start Date End Date Arabella Villarreal MD [address] [place], [place] [address] [place] [address] PCP - General 09/16/11 documented as of this encounter
--- OUTSIDE RECORDS SUMMARY | 2024-04-07 01:40 | XMS_ITS | Encounter Summary ---
Author Organization [facility] [place] [address] Care Team Providers Care Hand Shaker Name Role Phone Arabella Villarreal MD Primary Care Provider [phone] Encounter Details Date Type Department Care Team (Late st Contact Info) Description 12/27/2015 Orders Only Hematology [place] [address] Myron Cruz MD [facility] [address] [place] [address] Hodgkin lymphoma, unspecified Hodgkin lymphoma type, unspecified body region Social History Tobacco Use Types Packs/Day Years [...] of this encounter Results * Sedimentation rate (03/18/2016 1:23 PM EST) Sedimentation Rate Automated 7 0 - 20 mm/hr [facility] Blood specimen (specimen) 03/18/2016 1:23 PM EST 03/18/2016 1:31 PM EST Narrative Resulting Agency Comment Spec In Lab Myron Cruz MD HEMATOLOGY ORDERAB LES [facility] [place] [address] * Comprehensive metabolic panel (non-fasting) (03/18/2016 1:23 PM EST) Glucose 96 65 - 199 mg/dL [facility] Comment:Diabetes: >=200 mg/d L plus symptoms Blood Urea Nitrogen 17 8 - 18 mg/dL [facility] Creatinine 0.75 0.70 - 1.20 mg/dL [facility] Comment: Please note that the pediatric reference intervals supplied above were not validated at [facility]. Results from pediatric patients should be interpreted in conjunction to the patient's age, height and muscle mass. Sodium 142 135 - 145 mmol/L [facility] Potassium 3.9 3.5 - 5.0 mmol/L [facility] Comment: Please note: ??Patients with WBC >100,000 may have falsely elevated Potassium levels. ??For accurate Potassium quantification in these patients send serum separator tube (gold top) for subsequent determinations. ??Contact the Clinical Chemistry Laboratory if there are any questions. Chloride 103 98 - 107 mmol/L [facility] Carbon Dioxide 26 22 - 31 mmol/L [facility] Anion Gap 13 5 - 15 mmol/L [facility] Calcium 9.3 8.5 - 10.5 mg/dL [facility] Protein, Total 6.8 6.1 - 8.0 gm/dL [facility] Albumin 4.5 3.2 - 5.2 gm/dL [facility] Aspartate Aminotransferase 18 0 - 30 unit/L [facility] Alanine Aminotransferase 14 0 - 30 unit/L [facility] Alkaline Phosphatase 40 40 - 104 unit/L [facility] Bilirubin, Total 0.2 0.2 - 1.3 mg/dL [facility] Bilirubin, Direct 0.1 0.0 - 0.3 mg/dL [facility] Est Glomerular Filtration Rate >60 >=60 [facility] Comment: This estimated GFR (eGFR) [...] the following links into your internet browser. [email or web address]/DHnkdep [email or web address]/DHMCnkf Blood specimen (specimen) 03/18/2016 1:23 PM EST 03/18/2016 1:31 PM EST Narrative Resulting Agency Comment Spec In Lab Myron Cruz MD CHEMISTRY ORDERABL ES [facility] [place] [address] documented in this encounter Visit Diagnoses Diagnosis Hodgkin lymphoma, unspecified Hodgkin lymphoma type, unspecified body region documented in this encounter Care Teams Hand Shaker Relationship Specialty Start Date End Date Arabella Villarreal MD [address] [place] [address] PCP - General 09/16/11 documented as of this encounter
--- OUTSIDE RECORDS SUMMARY | 2024-04-07 01:40 | XMS_ITS | Encounter Summary ---
Author Organization [facility] [place] [address] Care Team Providers Care Raw Mill Operator Name Role Phone Arabella Villarreal MD Primary Care Provider [phone] Encounter Details Date Type Department Care Team (Late st Contact Info) Description 04/06/2013 Orders Only Hematology [place] [address] Myron Cruz MD [facility] [address] HEMATOLOGY [place] [address] Hodgkin's lymphoma (Primary Dx) Social History Tobacco Use Types Packs/Day Years [...] of this encounter Results * Sedimentation rate (09/24/2013 9:34 AM EDT) Sedimentation Rate Automated 6 0 - 20 mm/hr [facility] Blood specimen (specimen) 09/24/2013 9:34 AM EDT 09/24/2013 9:45 AM EDT Narrative Resulting Agency Comment Spec In Lab Myron Cruz MD HEMATOLOGY ORDERAB LES [facility] * Comprehensive metabolic panel (non-fasting) (09/24/2013 9:34 AM EDT) Glucose 88 60 - 199 mg/dL [facility] Comment:Diabetes: >=200 mg/d L plus symptoms Blood Urea Nitrogen 14 8 - 18 mg/dL [facility] Creatinine 0.81 0.70 - 1.20 mg/dL [facility] Comment: Please note that the pediatric reference intervals supplied above were not validated at [facility]. Results from pediatric patients should be interpreted in conjunction to the patient's age, height and muscle mass. Sodium 140 135 - 145 mmol/L [facility] Potassium 4.6 3.5 - 5.0 mmol/L [facility] Comment: Please note: ??Patients with WBC >100,000 may have falsely elevated Potassium levels. ??For accurate Potassium quantification in these patients send serum separator tube (gold top) for subsequent determinations. ??Contact the Clinical Chemistry Laboratory if there are any questions. Chloride 106 98 - 107 mmol/L [facility] Carbon Dioxide 26 22 - 31 mmol/L [facility] Anion Gap 8 5 - 15 mmol/L [facility] Calcium 9.6 8.5 - 10.5 mg/dL [facility] Protein, Total 6.6 6.4 - 8.3 gm/dL [facility] Albumin 4.4 3.2 - 5.2 gm/dL [facility] Aspartate Aminotransferase 24 0 - 30 unit/L [facility] Alanine Aminotransferase 25 0 - 30 unit/L [facility] Alkaline Phosphatase 46 40 - 104 unit/L [facility] Bilirubin, Total 0.3 0.2 - 1.3 mg/dL [facility] Bilirubin, [...] the following links into your internet browser. [email or web address]/DHnkdep [email or web address]/DHMCnkf Blood specimen (specimen) 09/24/2013 9:34 AM EDT 09/24/2013 9:45 AM EDT Narrative Resulting Agency Comment Spec In Lab Myron Cruz MD CHEMISTRY ORDERABL ES [facility] documented in this encounter Visit Diagnoses Diagnosis Hodgkin's lymphoma- Primary Hodgkin's disease, unspecified documented in this encounter Care Teams Raw Mill Operator Relationship Specialty Start Date End Date Arabella Villarreal MD [address] [place] [address] PCP - General 09/16/11 documented as of this encounter
--- OUTSIDE RECORDS SUMMARY | 2024-04-07 01:40 | XMS_ITS | Encounter Summary ---
Author Organization [facility] [place] [address] Care Team Providers Care Border Guard Name Role Phone Arabella Villarreal MD Primary Care Provider [phone] Reason for Visit * Reason Comments Follow-up Encounter Details Date Type Department Care Team (Late st Contact Info) Description 03/25/2014 11:30 AM EST Follow-Up Hematology [place] [address] Myron Cruz MD [facility] DR [place] [address] Hodgkin's lymphoma Discharge Disposition: Home Social History [...] Sign Reading Time Taken Comments Blood Pressure 110/60 03/25/2014 11:24 AM EST Pulse 57 03/25/2014 11:24 AM EST Temperature 36.6 ??C (97.9 ??F) 03/25/2014 11:[address] Respiratory Rate 16 03/25/2014 11:24 AM EST Oxygen Saturation 100% 03/25/2014 11:24 AM EST Inhaled Oxygen Concentration - - Weight 81.8 kg (180 lb 5.4 oz) 03/25/2014 11:24 AM EST Height - - Body Mass Index 28.64 06/17/2013 9:22 AM EDT documented in this encounter Progress Notes * Myron Cruz MD - 03/25/2014 11:37 AM EST HEMATOLOGY FOLLOW UP NOTE Chasity Gallo is a 33 y.o. female being seen for follow-up of Hodgkin's lymphoma. Problem List: Patient Active Problem List Diagnosis ??? Hodgkin's lymphoma STAGE IIA. Unfavorable. ESR >50 (68), and [...] lymphoma is felt to be less likely. Medications: Current Outpatient Prescriptions on File Prior to Visit Medication Sig Dispense Refill ??? Lysine HCl 500 mg Tab Take 500 mg by mouth 2 times daily. Indications: Cold sores ??? ranitidine (ZANTAC) 150 mg tablet Take 150 mg by mouth daily as needed. Indications: Gastroesophageal Reflux ? ? vitamin 27 & [id number] 60 mg iron-1 mg tablet Take 1 tablet by mouth daily. ??? [DISCONTINUED] pyridoxine (VITAMIN B-6) 100 mg tablet Take 100 mg by mouth daily. Current Facility-Administered Medications on File Prior to Visit Medication Dose Route Frequency Provider Last Rate Last Dose ??? LORazepam (ATIVAN) tablet 0.5-1 mg 0.5-1 mg Oral Q4H PRN Myron Cruz MD Or ??? LORazepam (ATIVAN) injection 0.5-1 mg 0.5-1 mg Intravenous Q4H PRN Myron Cruz MD ??? prochlorperazine (COMPAZINE) tablet 5-10 mg 5-10 mg Oral Q6H PRN Myron Cruz MD ??? LORazepam (ATIVAN) tablet 0.5-1 mg 0.5-1 mg Oral Q4H PRN Myron Cruz MD 0.5 mg at 03/05/12 1343 Or ??? LORazepam (ATIVAN) injection 0.5-1 mg 0.5-1 mg Intravenous Q4H PRN Myron Cruz MD ??? prochlorperazine (COMPAZINE) tablet 5-10 mg 5-10 mg Oral Q6H PRN Myron Cruz MD ??? LORazepam (ATIVAN) injection 0.5-1 mg 0.5-1 mg Intravenous Q4H PRN Myron Cruz MD Or ??? LORazepam (ATIVAN) tablet 0.5-1 mg 0.5-1 mg Oral Q4H PRN Myron Cruz MD 0.5 mg at 02/20/12 1303 Allergies: Allergies Allergen Reactions ??? Other [Unclassified Drug] Nausea Only Prefilled saline syringes cause severe nausea--please draw saline flushes from vials or bags only! Interim History: Chasity Gallo returns to clinic today in routine follow-up for her Hodgkin Disease s/p completion of 6 cycles of ABVD chemotherapy on clincal trial CALGB 40606 in March 2012. Recently x 10 weeks, still in early stages. Had TV US and interuterine . Taking vitamins. Has nausea in the evening, mild compared to her first child, Talia. Review of Systems: Hematological and Lymphatic ROS: negative Energy level: good Pain: No Appetite: good Fevers/chills/sweats: No Bruising/bleeding/melena: No Recent infections: No Nausea/vomiting/diarrhea/constipation: No SOB/GIBSON/chest pain: No Change in adenopathy or other masses: No Unexpected weight loss or gain: No Skin rashes or petechiae: No skin rashes or lesions Other systems: No peripheral neuropathy A 12-pt review of systems was performed and was otherwise negative except for above. Physical Exam: BP 110/60 Pulse 57 Temp(Src) 36.6 ??C (97.9 ??F) (Temporal) Resp 16 Wt 81.8 kg (180 lb 5.4 oz) SpO2 100% Gen: well appearing, well developed, well nourished 33-year-old woman in no acute distress. HEENT: PERRL, no oral lesions, mucus membranes moist without ulcerations, hyperemia, exudative plaques or lesions. LN survey: no palpable cervical, supraclavicular, axillary or inguinal adenopathy Chest: clear to ausculatation bilaterally CV: S1S2, RRR, no murmurs, rubs, gallops Abd: soft, flat, non-tender, no palpable masses or hepatosplenomegaly. NABS. Ext: no edema Neuro: grossly intact MS: no bony tenderness Laboratory: Recent Results (from the past 72 hour(s)) COMPREHENSIVE METABOLIC PANEL (NON-FASTING) Result Value Range Glucose Lvl 86 60 - 199 mg/dL BUN 13 8 - 18 mg/dL Creatinine 0.55 (*) 0.70 - 1.20 mg/dL Sodium 137 135 - 145 mmol/L Potassium 4.1 3.5 - 5.0 mmol/L Chloride 103 98 - 107 mmol/L CO2 23 22 - 31 mmol/L Anion Gap 11 5 - 15 mmol/L Calcium 9.0 8.5 - 10.5 mg/dL Total Protein 6.3 (*) 6.4 - 8.3 gm/dL Albumin 4.1 3.2 - 5.2 gm/dL AST 19 0 - 30 unit/L ALT 19 0 - 30 unit/L Alk Phos 30 (*) 40 - 104 unit/L Total Bilirubin 0.4 0.2 - 1.3 mg/dL Bili, Direct 0.1 0.0 - 0.3 mg/dL Estimated GFR >60 >=60 HEMOGRAM Result Value Range WBC 4.2 4.0 - 10.0 x10(3)/mcL RBC 3.64 (*) 3.93 - 5.22 x10(6)/mcL Hemoglobin 11.4 11.2 - 15.7 gm/dL Hematocrit 33.1 (*) 34.0 - 45.0 % MCV 90.9 79.0 - 94.0 fL MCH 31.3 26.6 - 32.2 pg MCHC 34.4 32.0 - 36.5 gm/dL Platelets 198 145 - 370 x10(3)/mcL RDWSD 40.9 35.0 - 46.0 fL RDWCV 12.3 10.9 - 14.4 % MPV 8.8 (*) 9.0 - 12.0 fL DIFFERENTIAL, AUTOMATED Result Value Range Neutrophils % 74.5 Neutr Abs (ANC) 3.10 1.50 - 6.30 x10(3)/mcL Lymphocytes % 13.7 Lymphocytes Abs 0.6 (*) 1.0 - 3.6 x10(3)/mcL Monocytes % 9.9 Monocyte Abs 0.4 0.2 - 1.0 x10(3)/mcL Eosinophils % 1.4 Eosinophils Abs 0.1 0.0 - 0.5 x10(3)/mcL Basophils % 0.5 Basophils Abs 0.0 0.0 - 0.2 x10(3)/mcL Immature Gran % 0.00 Maryann Gran Abs 0.00 0.00 - 0.05 x10(3)/mcL Radiographic Data: none reviewed today Assessment/Plan: 33 year old now s/p 6 cycles of ABVD for stage IIA HL, ABVD on study PET2 negativecentral review, last dose 03/19/2012. PET showed CR after all therapy. No clinical or laboratory evidence of disease progression. No residual effects of chemotherapy identified. CT from 12/2013 showedno active lymphoma. No CT done now due to . Has interuterine x 10 weeks. Being followe by [facility] locally. Hb slightly down to 11.4g/dL today. I recommend check of ferritin and iron studies. Lymphoma f/u for this time period will include labs and physical exam. Given history of other pregnancies, with loss, she should be monitored carefully, but s/p ABVD, expect a normal . RTC in 3-4 months. Total time spent with patient: 30 minutes Time spent in counseling and coordination of care: 20 minutes Myron Cruz MD [employer] professor Section of Hematology/Oncology [facility] Cc: Arabella Villarreal MD documented in this encounter Plan of Treatment Not on file documented as of this encounter Procedures Procedure Name Priority Date/Time Associated Diagnosis Comments HEMOGRAM STAT 03/25/2014 10:39 AM EST Hodgkin's lymphoma DIFFERENTIAL, AUTOMATED STAT 03/25/2014 10:39 AM EST Hodgkin's lymphoma SEDIMENTATION RATE STAT 03/25/2014 10 :39 AM EST Hodgkin's lymphoma CBC (WITH DIFF) STAT 03/25/2014 10:39 AM EST Hodgkin's lymphoma COMPREHENSIVE METABOLIC PANEL STAT 03/25/2014 10:39 AM EST Hodgkin's lymphoma documented in this encounter Results * Sedimentation rate (09/22/2014 10:39 AM EDT) Sedimentation Rate Automated 17 0 - 20 mm/hr CERNER MILLENNIUM Blood specimen (specimen) 09/22/2014 10:39 AM EDT 09/22/2014 10:56 AM EDT Narrative Resulting Agency Comment Spec In Lab Myron Cruz MD HEMATOLOGY ORDERAB LES CERNER MILLENNIUM * (ABNORMAL) Comprehensive metabolic panel (non-fasting) (09/22/2014 10:39 AM EDT) Glucose 64(L) 65 - 199 mg/dL CERNER MILLENNIUM Comment:Diabetes: >=200 mg/d L plus symptoms Blood Urea Nitrogen 9 8 - 18 mg/dL CERNER MILLENNIUM Creatinine 0.59(L) 0.70 - 1.20 mg/dL CERNER MILLENNIUM Comment: Please note that the pediatric reference intervals supplied above were not validated [place] [facility] Results from pediatric patients should be interpreted in conjunction to the patient's age, height and muscle mass. Sodium 138 135 - 145 mmol/L CERNER MILLENNIUM Potassium 4.5 3.5 - 5.0 mmol/L CERNER MILLENNIUM Comment: Please note: ??Patients with WBC >100,000 may have falsely elevated Potassium levels. ??For accurate Potassium quantification in these patients send serum separator tube (gold top) for subsequent determinations. ??Contact the Clinical Chemistry Laboratory if there are any questions. Chloride 105 98 - 107 mmol/L CERNER MILLENNIUM Carbon Dioxide 23 22 - 31 mmol/L CERNER MILLENNIUM Anion Gap 10 5 - 15 mmol/L CERNER MILLENNIUM Calcium 8.7 8.5 - 10.5 mg/dL CERNER MILLENNIUM Protein, Total 5.9(L) 6.1 - 8.0 gm/dL CERNER MILLENNIUM Albumin 3.6 3.2 - 5.2 gm/dL CERNER MILLENNIUM Aspartate Aminotransferase 26 0 - 30 unit/L CERNER MILLENNIUM Alanine Aminotransferase 21 0 - 30 unit/L CERNER MILLENNIUM Alkaline Phosphatase 82 40 - 104 unit/L CERNER MILLENNIUM Bilirubin, [...] the following links into your internet browser. [email or web address] Blood specimen (specimen) 09/22/2014 10:39 AM EDT 09/22/2014 10:56 AM EDT Narrative Resulting Agency Comment Spec In Lab Myron Cruz MD CHEMISTRY ORDERABL ES CERNER MILLENNIUM * (ABNORMAL) Differential, Automated (03/25/2014 10:39 AM EST) Neutrophil % 74.5 % CERNER MILLENNIUM Neutrophil Absolute 3.10 1.50 - 6.30 x10(3)/mc L CERNER MILLENNIUM Lymph % 13.7 % CERNER MILLENNIUM Lymphocytes Abs 0.6(L) 1.0 - 3.6 x10(3)/mc L CERNER MILLENNIUM Monocyte % 9.9 % CERNER MILLENNIUM Monocyte Abs 0.4 0.2 - 1.0 x10(3)/mc L CERNER MILLENNIUM Eos % 1.4 % CERNER MILLENNIUM Eosinophils Abs 0.1 0.0 - 0.5 x10(3)/mc L CERNER MILLENNIUM Basophil % 0.5 % CERNER MILLENNIUM Baso Absolute 0.0 0.0 - 0.2 x10(3)/mc L CERNER MILLENNIUM Immature Gran % 0.00 % CERN ER MILLENNIUM Comment: Immature granulocytes(IG's)percentage and absolute count will include metamyelocytes, myelocytes, and promyelocytes. Blood smears from CBCs yielding IG's will be scanned manually for concordance. If this scan disagrees with the automated IG or if promyelocytes are noted, a manual differential will be performed. Immature Gran Absolute 0.00 0.00 - 0.05 x10(3)/mc L CERNER MILLENNIUM Blood specimen (specimen) 03/25/2014 10:39 AM EST 03/25/2014 10:54 AM EST Narrative Resulting Agency Comment Spec In Lab Myron Cruz MD HEMATOLOGY ORDERAB LES CERNER MILLENNIUM * (ABNORMAL) Hemogram (03/25/2014 10:39 AM EST) White Blood Cell 4.2 4.0 - 10.0 x10(3)/mc L CERNER MILLENNIUM Red Blood Cell 3.64(L) 3.93 - 5.22 x10(6)/mc L CERNER MILLENNIUM Hemoglobin 11.4 11.2 - 15.7 gm/dL CERNER MILLENNIUM Hematocrit 33.1(L) 34.0 - 45.0 % CERNER MILLENNIUM Mean Cell Volume 90.9 79.0 - 94.0 fL CERNER MILLENNIUM Mean Cell Hemoglobin 31.3 26.6 - 32.2 pg CERNER MILLENNIUM Mean Cell Hemoglobin Concentration 34.4 32.0 - 36.5 gm/dL CERNER MILLENNIUM Platelet 198 145 - 370 x10(3)/mc L CERNER MILLENNIUM RDW Standard Deviation 40.9 35.0 - 46.0 fL CERNER MILLENNIUM RDW coefficient of variation 12.3 10.9 - 14.4 % CERNER MILLENNIUM Mean Platelet Volume 8.8(L) 9.0 - 12.0 fL CERNER MILLENNIUM Blood specimen (specimen) 03/25/2014 10:39 AM EST 03/25/2014 10:54 AM EST Narrative Resulting Agency Comment Spec In Lab Myron Cruz MD HEMATOLOGY ORDERAB LES Performing Organization Address City/[facility] Co de Phone Number CERNER MILLENNIUM * Sedimentation rate (03/25/2014 10:39 AM EST) Sedimentation Rate Automated 9 0 - 20 mm/hr CERNER MILLENNIUM Blood specimen (specimen) 03/25/2014 10:39 AM EST 03/25/2014 10:54 AM EST Narrative Resulting Agency Comment Spec In Lab Myron Cruz MD HEMATOLOGY ORDERAB LES Performing Organization Address [facility] Co de Phone Number CERNER MILLENNIUM * (ABNORMAL) Comprehensive metabolic panel (non-fasting) (03/25/2014 10:39 AM EST) Glucose 86 60 - 199 mg/dL CERNER MILLENNIUM Comment:Diabetes: >=200 mg/d L plus symptoms Blood Urea Nitrogen 13 8 - 18 mg/dL CERNER MILLENNIUM Creatinine 0.55(L) 0.70 - 1.20 mg/dL CERNER MILLENNIUM Comment: Please note that the pediatric reference intervals supplied above were [place] validated [place] [facility] Results from pediatric patients should be interpreted in conjunction to the patient's age, height and muscle mass. Sodium 137 135 - 145 mmol/L CERNER MILLENNIUM Potassium 4.1 3.5 - 5.0 mmol/L CERNER MILLENNIUM Comment: Please note: ??Patients with WBC >100,000 may have falsely elevated Potassium levels. ??For accurate Potassium quantification in these patients send serum separator tube (gold top) for subsequent determinations. ??Contact the Clinical Chemistry Laboratory if there are any questions. Chloride 103 98 - 107 mmol/L CERNER MILLENNIUM Carbon Dioxide 23 22 - 31 mmol/L CERNER MILLENNIUM Anion Gap 11 5 - 15 mmol/L CERNER MILLENNIUM Calcium 9.0 8.5 - 10.5 mg/dL CERNER MILLENNIUM Protein, Total 6.3(L) 6.4 - 8.3 gm/dL CERNER MILLENNIUM Albumin 4.1 3.2 - 5.2 gm/dL CERNER MILLENNIUM Aspartate Aminotransferase 19 0 - 30 unit/L CERNER MILLENNIUM Alanine Aminotransferase 19 0 - 30 unit/L CERNER MILLENNIUM Alkaline Phosphatase 30(L) 40 - 104 unit/L CERNER MILLENNIUM Bilirubin, [...] the following links into your internet browser. [email or web address] Blood specimen (specimen) 03/25/2014 10:39 AM EST 03/25/2014 10:54 AM EST Narrative Resulting Agency Comment Spec In Lab Myron Cruz MD CHEMISTRY ORDERABL ES MAGDALENA CARTER documented in this encounter Visit Diagnoses Diagnosis Hodgkin's lymphoma Hodgkin's disease, unspecified documented in this encounter Care Teams Border Guard Relationship Specialty Start Date End Date Arabella Villarreal MD [address] [place] [address] PCP - General 09/16/11 documented as of this encounter
--- OUTSIDE RECORDS SUMMARY | 2024-04-07 01:40 | XMS_ITS | Encounter Summary ---
[place] [address] Care Team Providers Care Museum Informatics Specialist Name Role Phone Arabella Villarreal MD Primary Care Provider [phone] Reason for Referral * Diagnostic Test (Routine) - Closed Specialty Diagnoses / Procedures Referred By Contac t Referred To Contact Radiology Diagnoses Hodgkin's lymphoma Procedures CT Chest, Abdomen, & Pelvis With Contrast (GENERIC) Myron Cruz MD [facility] [address] [place] [address] [place] [address] Referral ID Status Reason Start Date Expiration Date V isits Requested Visits Authorized [id number] Closed Specialty Service Requested 03/16/2015 05/14/2015 1 1 Reason for Visit * Diagnostic Test (Routine) - Closed Specialty Diagnoses / Procedures Referred By Tc neil Referred To Contact Radiology Diagnoses Hodgkin's lymphoma Procedures CT Chest, Abdomen, & Pelvis With Contrast (GENERIC) Myron Cruz MD [facility] [address] [place] [address] [place] [address] Referral ID Status Reason Start Date Expiration Date V isits Requested Visits Authorized [id number] Closed Specialty Service Requested 03/16/2015 05/14/2015 1 1 Encounter Details Date Type Department Care Team (Latest Contact Info) Description 03/23/2015 8:41 AM EST - 03/23/2015 9:14 AM [facility] [place] [address] Myron Cruz MD [facility] [address] [place] [address] Hodgkin's lymphoma Discharge Disposition: Home Social History [...] Gastroesophageal Reflux 04/02/19 23 vitamin 27 & [id number] 60 mg iron-1 mg tablet Take 1 tablet by mouth daily. 04/02/2022 documented as of this encounter Plan of Treatment Not on file documented as of this encounter Procedures Procedure Name Priority Date/Time Associated Diagnosis Comments CT CHEST ABDOMEN PELVIS W CONTRAST (GENERIC) Routine 03/23/2015 11:07 AM EST Hodgkin's lymphoma documented in this encounter Results * CT Chest, Abdomen, & Pelvis With [...] Hodgkin's disease, unspecified documented in this encounter Administered Medications Inactive Administered Medications - up to 3 most recent administrations Medication Order MAR Action Action Date Dose Rate Site iohexol (OMNIPAQUE) 350 mg/mL solution 17,500 mg 17,500 mg (50 mL), Oral, ONCE PRN, 1 dose, Starting on Marleny 03/23/15 at 1057, Until Marleny 03/23/15 at 1108, Per Protocol, Routine Given 03/23/2015 11:08 AM EST 17,500 mg iohexol (OMNIPAQUE) 350 mg/mL solution 38,500 mg 38,500 mg (110 mL), Intravenous, ONCE PRN, 1 dose, Starting on Marleny 03/23/15 at 1057, Until Marleny 03/23/15 at 1108, Per Protocol, Routine Given 03/23/2015 11:08 AM EST 38,500 mg documented in this encounter Care Teams Museum Informatics Specialist Relationship Specialty Start Date End Date Aarbella Villarreal MD [address] [place] [address] PCP - General 09/16/11 documented as of this encounter
--- OUTSIDE RECORDS SUMMARY | 2024-04-07 01:40 | XMS_ITS | Encounter Summary ---
Author Organization [facility] [place] [address] Care Team Providers Care Stock Sorter Name Role Phone Arabella Villarreal MD Primary Care Provider [phone] Encounter Details Date Type Department Care Team (Latest Contact Info) Description 03/25/2014 10:45 AM EST Ancillary Appointment Hematology [place] [id number] CLINIC, Myron Denney MD [facility] [address] HEMATOLOGY [place] [address] Hodgkin's lymphoma; Examination of participant in clinical trial Discharge Disposition: Home Social History Tobacco Use [...] Diagnoses Diagnosis Hodgkin's lymphoma Hodgkin's disease, unspecified Examination of participant in clinical trial documented in this encounter Care Teams Stock Sorter Relationship Specialty Start Date End Date Arabella Villarreal MD [address] [place] [address] [address] [place] [address] PCP - General 09/16/11 documented as of this encounter
--- OUTSIDE RECORDS SUMMARY | 2024-04-07 01:40 | XMS_ITS | Encounter Summary ---
Author Organization [facility] Address [facility] [place] [address] Care Team Providers Care Non Licensed Operator Name Role Phone Arabella Villarreal MD Primary Care Provider [phone] Reason for Visit * Reason Comments Skin Check Encounter Details Date Type Department Care Team (Late st Contact Info) Description 09/24/2017 1:30 PM EDT Office Visit Dermatology at [address] [id number] Marion Mckeon MD Schreiner, Marie B, PA Dermatofibroma; Multiple benign nevi; Neoplasm of uncertain behavior of skin Social History Tobacco Use Types Packs/Day Years Used Date Smoking Tobacco: Never Smokeless Tobacco: Never Alcohol Use Standard Drinks/Week Comments No 0 (1 standard drink = 0.6 oz pur e alcohol) Sex and Gender Information Value Date Recorded Sex Assigned at Not on file Gender Identity Not on file Sexual Orientation Not on file documented as of this encounter Patient Instructions * Patient Instructions* Yoly Mckenna - 09/24/2017 1:30 PM EDT ABOUT YOUR TREATMENTS Your Treatment today: You had a biopsy of your skin (removal of a small piece of tissue for examination under microscope). You had a shave biopsy and do not have sutures. Location of your biopsy: Keep in mind the location of your biopsy site in case further treatment is necessary. Wound care Instructions: 1. Keep wound dry and covered for 24 hours then clean area with soap and water. 2. Pat dry completely 3. Cover with Vaseline and a new bandage daily, do this everyday until the wound is healed Please call [phone] if you have questions or concerns. * Please allow one or two weeks for the biopsy results to return. *Based on your biopsy results we will either call you or send you a letter with the results. *If in two weeks, you have not heard from us, please feel free to call and request your biopsy results. documented in this encounter Progress Notes * Shaye Dow PA - 09/24/2017 1:30 PM EDT Images from the original note were not included. DERMATOLOGY - ESTABLISHED PATIENT FOLLOW-UP Date of service: 09/24/2017 Chasity Gallo : 1980, 37 y.o. CC: Chief Complaint Patient presents with ??? Skin Check HPI: Chasity Gallo is a 37 y.o. female last seen by Dr. Pinto on 08/21/2016. Ms. Gallo returns today for a full skin examination without new or changing lesions of concern today. Relevant Skin History: - Okay to leave detailed voice message with results? Yes - 08/21/16: Intradermal melanocytic nevus, right mid back (shave biopsy) - Avila angioma - Inflamed nevi - Dermatofibroma Family History: Melanoma: Unsure Psoriasis: Mother Skin cancer: Father in his fifties; of pancreatic cancer ?? 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 pyridoxine, vitamin B6, (B-6) 100 mg Tablet Take 100 mg by mouth daily. ??? FLUTICASONE PROPIONATE (FLONASE ALLERGY RELIEF NASL) by Nasal route. ??? Lysine HCl 500 mg Tab Take 500 mg by mouth 2 times daily. Reported on 03/18/2016 Indications: Cold sores ??? ranitidine (ZANTAC) 150 mg tablet Take 150 mg by mouth daily as needed. Indications: Gastroesophageal Reflux ? ? vitamin 27 & [id number] 60 mg iron-1 mg tablet Take 1 tablet by mouth daily. No current facility-administered medications for this visit. Allergies: Allergies Allergen Reactions ??? Other [Unclassified Drug] Nausea Only Prefilled saline syringes cause severe nausea--please draw saline flushes from vials or bags only! Review of Systems: - General: Feels well. - Skin: No other skin concerns. Examination: - Constitutional: Patient was alert, well-appearing and in no noticeable distress. - Skin: Skin examination of the scalp, face, ears, neck, back, chest, abdomen, right and left upperextremities, right and left lower extremities, hands, feet, and buttocks was normal with the exception of the findings listed below. Patient declined genital exam. Diagnosis/Skin findings/Assessment/Plan: 1. 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 Procedure: Skin biopsy by shave technique Location: as above Discussed indications for procedure and expectations including risks and benefits. Verbal consent obtained. Skin prep with alcohol. Local anesthesia with 1% xylocaine, 1/100,000 epinephrine. The lesion was removed by shave technique to the level of the dermis and submitted to Pathology. Hemostasis obtained (AlCl and/or electrocautery). There were no complications; the pt. tolerated the procedure well. The wound was dressed. Post-procedure expectations, wound care and activity restrictions were reviewed. Follow-up based on pathology results. Photos taken and documented with patient consent. 2. Dermatofibromas (DF) - Left thigh x1, right calf x1, left lower leg x1: firm papule, centrally raised and sclerotic, with peripheral hyperpigmentation and dimpling with lateral pressure. - Patient reassured of benign nature. - No treatment necessary. 3. Benign appearing nevi - Scattered, including back: Multiple, 0.3-0.5cm, medium-brown, evenly-pigmented macules and papules. All with regular pigment pattern on dermoscopy. No pigmented lesions suspicious for melanoma. - Patient reassured of benign nature. - No lesions suspicious for melanoma identified on exam today. Will continue to monitor. - Discussed importance of sun protection, sun avoidance strategies, protective clothing, and sunscreen. I discussed warning signs for skin cancer, including the ABCDEs of melanoma. ?? - Observe skin for change in color, size or character. Call if such occur. LOS [id number] RTC: Pending pathology, otherwise in 2 years for FSE. Routed for scheduling. Note initiated by RAQUEL CACERES. I, Yoly Mckenna, have performed the documentation for this encounter in the presence of and acting as a scribe for Shaye Dow PA-C (Bri). I performed the services which were documented by the scribe, and I agree with the accuracy of the documentation in this encounter. Shaye Dow PA-C Reviewed and signed by Shaye Dow PA-C [facility] Patient seen in conjunction with staff engineering director: Marion Mckeon MD Section of Dermatology [facility] * Marion Mckeon MD - 09/24/2017 1:30 PM EDT I saw this patient in conjunction with Margarita Dow PA-C during this office visit. Margarita Dow PA-C presented the history and physical exam to me. I then saw and examined this patient with Margarita Dow PA-C. We reviewed the history and pertinent details and I confirmed the physical findings. We discussed the care plan. I agree with the details of the history and physical exam as documented in Margarita Dow PA-C's note. I advised the nevus on the back be removed. It was removed by shave (not just sampled). Sent for pathologic exam. documented in this encounter Plan of Treatment Not on file documented as of this encounter Procedures Procedure Name Priority Date/Time Associated Diagnosis Comments SURGICAL PATHOLOGY REPORT Routine 09/24/2017 1:39 PM EDT SPECIMEN TO PATHOLOGY Routine 09/24/2017 1:39 PM EDT Neoplasm of uncertain behavior of skin documented in this encounter Results * Surgical Pathology Report (09/24/2017 1:39 PM EDT) Final Diagnosis [id number] ? Location: [facility] The signing pathologist has (i) examined the relevant preparation(s) for the specimen(s) and (ii) rendered or confirmed the diagnosis(es). . ? Addendum ADDENDUM DISCUSSION Final Diagnosis: - Dysplastic lentiginous compound melanocytic nevus, involving the margins (see comment). - Complete removal is recommended. COMMENT This case has been reviewed by Juan F Alvarez MD of [facility] ?'[facility] ([facility] by report dated 10/13/2017 with the accession number [id number]. We agree with Dr. Alvarez ??'s assessment that the lesion is dysplastic, there is some severe atypia, and that an excision to ensure complete removal is recommended. The [facility] ??'s [facility] ([facility] diagnosis is in agreement with our diagnosis. For the full text of the [facility] ?'s [facility] ([facility] report, please refer to Non-DH Documentation Pathology in the electronic health record (eDH). ADDITIONAL STUDIES This case was also reviewed by multiple additional intradepartmental dermatopathologists for consensus assessment. The dermatology note, clinical image and select medical history have been reviewed. Immunohistochemistry Studies: Formalin-fixed, paraffin-embedded tissue sections are studied using the polymer technique with appropriate positive and negative controls. ??These IHC studies provide the pathologist with adjunctive diagnostic information. Antibody specificity has been verified by testing antibodies on a series of in-house tissues with known immunohistochemical performance characteristics. The clinical interpretation of any antibody positive staining or its absence is evaluated within the context of clinical presentation, morphology, histopathological criteria and other diagnostic tests. Block ? Antibody ?Result (Positive/Negative) A1 ?Melan A ? Positive (in the lesional cells) A1 ?p16 ? Retained (in some lesional cells) A1 ?HMB45 ? Positive (in some lesional cells) Electronically signed by: ??Giovanni Srinivasan MD Verified: ??10/14/2017 ?Dermatopathologist Performed at: ??-[facility], [place], [place] ?Surgical Pathology DIAGNOSIS Skin, right upper back, shave ?? biopsy: Compound melanocytic proliferation ?? (see discussion). Electronically signed by: ??Giovanni Srinivasan MD Verified: ??10/07/2017 ?Dermatopathologist Performed at: ??-[facility], [place], [place] DISCUSSION This is a preliminary report. The case is being sent in consultation. A more complete report will be issued as an addendum. . ADDITIONAL STUDIES This case was also reviewed by multiple additional intradepartmental dermatopathologists for consensus assessment. The dermatology note, clinical image and select medical history have been reviewed. Immunohistochemistry Studies: Formalin-fixed, paraffin-embedded tissue sections are studied using the polymer technique with appropriate positive and negative controls. ??These IHC studies provide the pathologist with adjunctive diagnostic information. Antibody specificity has been verified by testing antibodies on a series of in-house tissues with known immunohistochemical performance characteristics. The clinical interpretation of any antibody positive staining or its absence is evaluated within the context of clinical presentation, morphology, histopathological criteria and other diagnostic tests. Block ? Antibody ?Result (Positive/Negative) A1 ?Melan A ? Pending (to be reported as an addendum) A1 ?p16 ? Pending (to be reported as an addendum) A1 ?HMB45 ? Pending (to be reported as an addendum) CLINICAL INFORMATION Specimen Submitted: A - Skin, right upper back, shave biopsy (1) Clinical History and Diagnosis: 5 mm medium brown and pink thin papule/congenital nevus R/O atypia. SPECIMEN PROCESSING A - Labeled/Fixative: Right upper back, formalin. Quantity/Size: Single, 1.0 x 0.7 x 0.1 cm. Tissue Description: Shave of brown skin. Sections/Processing: Inked and trisected. (T1) ??sns 10/14/2017 1:27 PM EDT [facility] SPECIMEN FROM SKIN / Unknown 09/24/2017 1:39 PM EDT 09/24/2017 1:39 PM EDT Shaye GARCÍA PATHOLOGY/CYTOLOGY ORDERABLES Performing Organization Address [facility]/ZIP Co de Phone Number [facility] [place] [place] [address] * Specimen to Pathology (09/24/2017 1:39 PM EDT) AP Specimen 09/24/2017 1:39 PM EDT 09/24/2017 4:08 PM EDT Narrative [facility] - 09/24/2017 4:08 PM EDT Specimen requisition ordered. ??Separate Pathology report to follow Resulting Agency Comment Spec In Lab Marion Mckeon MD PATHOLOGY/CYTOLOGY O LIV Performing Organization Address [facility]/[place] [address] documented in this encounter Visit Diagnoses Diagnosis Dermatofibroma Benign neoplasm of skin, site unspecified Multiple benign nevi Benign neoplasm of skin, site unspecified Neoplasm of uncertain behavior of skin documented in this encounter Care Teams Non Licensed Operator Relationship Specialty Start Date End Date Arabella Villarreal MD [address] [place] [address] PCP - General 09/16/11 documented as of this encounter
--- OUTSIDE RECORDS SUMMARY | 2024-04-07 01:40 | XMS_ITS | Encounter Summary ---
Author Organization [facility] Address [facility] [place] [address] Care Team Providers Care Fish Hatchery Man Name Role Phone Arabella Villarreal MD Primary Care Provider [phone] Reason for Visit * Reason Comments Skin Lesion Skin Check * Consultation (Routine) - Closed Specialty Diagnoses / Procedures Referred By Tc neil Referred To Contact Dermatology Diagnoses Numerous Moles Arabella Villarreal MD [address] [place] [address] [facility] Dermatology [address] [place] [address] Referral ID Status Reason Start Date Expiration Date V isits Requested Visits Authorized [id number] Closed Consult, Test & Treat Connection Center 06/21/2016 06/21/2017 1 1 Encounter Details Date Type Department Care Team (Late st Contact Info) Description 08/21/2016 11:00 AM EDT Office Visit Dermatology at [facility] [address] [place] [address] Mirella Pinto MD [facility] [address] [address] Neoplasm of uncertain behavior of skin; Avila angioma; Multiple benign nevi; Dermatofibroma; Skin cancer screening Social History Tobacco Use Types Packs/Day Years [...] this encounter Patient Instructions * Patient Instructions* Mirella Pinto E - 08/21/2016 11:00 AM EDT Images from the original note were not included. Post-Biopsy Wound Care Instructions You have just had a skin biopsy. Wound care will be important to prevent infection and minimize scarring. ??? Keep the wound clean. You may wash the wound with soapy water running over the wound. Do not scrub. ??? Apply antibiotic ointment - e.g., polysporin, neosporin, bacitracin or bactroban - or clean vaseline to the wound and cover with a bandaid 1-2 times a day. ??? Keep the wound dressed this way 24h a day until healed - typically 7-14 days, though healing times may vary depending on the size of the wound and the location. ??? Do not let the wound scab over or dry up, which may delay wound healing and more likely producea more apparent scar than will already be formed. ??? The site may be itchy for up to several weeks. ??? If you notice redness spreading out from the wound, thick white or yellow drainage, increased swelling, tenderness at the wound or have any other questions or problems about the biopsy, please contact the clinic immediately. If you have any questions, please contact the clinic during the day at . In the case of urgency after 5PM and on weekends, please call the hospital number and ask for the Dirt Bike Racer corporate relations manager. Pathology results may take 5-14 days depending on the number of stains that must be performed. If you do not hear back within 3 weeks of the biopsy, contact the clinic nurse or front desk supervisor during normal business hours for the results. Caring for Your Skin Sun Protection Exposure to ultraviolet (UV) light--from the sun or tanning beds--is the most common modifiable risk factor for skin cancer. In fact, most skin cancers are found in locations where sun exposure is highest (e.g., face, ears, and hands). Furthermore, UV exposure is associated with skin aging, including wrinkles, brown spots, and leathery skin. Recommendations ?? Generously apply a broad-spectrum water-resistant sunscreen with a Sun Protection Factor (SPF) of 30 or more to all exposed skin. ?? Reapply sunscreen every 2 hours, even on cloudy days, and after swimming or sweating. ?? Preferred sunscreens: Sunscreens work by either forming a physical or a chemical barrier to ultraviolet light. Zinc oxide or Titanium dioxide are physical barriers to the sun. We recommend sunscreens that contain at least one physical barrier. Look for these brands: Darren ROBERTS UV Clear, Cotz Face Silk Soft Matte finish or La Elmer-Posaury Anthelios Mineral. ?? Wear protective clothing. Long-sleeved shirts, pants, a wide-brimmed hat and sunglasses are all excellent choices. Some companies produce great, breathable SPF clothing ([employer]ar, [employer] [place], Friday Afternoons) ?? Seek shade. The sun's rays are strongest between 10a.m. And 4 p.m. documented in this encounter Progress Notes * Mirella Pinto E - 08/21/2016 11:00 AM EDT Images from the original note were not included. DERMATOLOGY - NEW PATIENT NOTE Date of service: 08/21/2016 Chasity Gallo : 1980, 36 y.o. CC: Chief Complaint Patient presents with ??? Skin Lesion ??? Skin Check HPI: Chasity Gallo is a 36 y.o. female with hx of Hodgkins Lymphoma, last treated in 2012 referred by Arabella Villarreal with the following concerns: - Complains of a bothersome lesion on the right calf which has been present for several years - Father had hx of melanoma and pancreatic cancer. Would like a full skin exam. 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 FLUTICASONE PROPIONATE (FLONASE ALLERGY RELIEF NASL) by Nasal route. ??? docusate sodium (COLACE) 50 mg Capsule Take by mouth daily. Reported on 03/18/2016 ??? aspirin 81 mg Tablet, Delayed Release (E.C.) Take 81 mg by mouth daily. Reported on 03/18/2016 ??? Lysine HCl 500 mg Tab Take 500 mg by mouth 2 times daily. Reported on 03/18/2016 Indications: Cold sores ??? ranitidine (ZANTAC) 150 mg tablet Take 150 mg by mouth daily as needed. Indications: Gastroesophageal Reflux ? ? vitamin 27 & [id number] 60 mg iron-1 mg tablet Take 1 tablet by mouth daily. No current facility-administered medications for this visit. Allergy: Allergies Allergen Reactions ??? Other [Unclassified Drug] [...] the exception of the findings listed below. Genitalia not examined. Diagnosis/Skin findings/Assessment/Plan: 1. Scattered Avila angioma - Trunk and extremities: bright red vascular papules - Benign. Patient reassured. 2. Fried-Egg Nevi - Abdomen and upper back: Central dark papule with surrounding rn placement brown rim. - Morphology reassuring. No treatment at this time. - Reviewed ABCDEs of melanoma and concerning signs, including changes to lesion in size, shape, thickness and new onset symptoms or bleeding. Answered all questions. - The nature of sun-induced photo-aging and skin cancers was discussed. Discussed the importance ofsun avoidance. Sun protection strategies including protective clothing (such as awide-brimmed hat),and the use and frequent reapplication of a broad-spectrum (UVA + UVB) sunscreen with an SPF > 30 were advised. Patient was instructed to observe closely for any skin damage/changes, and call if such occurs. - Discussed warning signs for skin cancer, including the ABCDE's of melanoma. AAD handout given -Return to clinic prn if changes in nevi observed or symptoms develop. 3. Dermatofibroma - Right calf x 1, left medial calf x 1, left thigh x 1, left buttocks x 2, right mid abdomen x 1: Sclerotic papule with peripheral brown rim. Dimpling with lateral pressure. - Asymptomatic. - Benign, non-cancerous growths. Discussed removal options for right calf lesion given she nicks itwith shaving. Reviewed punch bx vs shave and potential for regrowth. Patient elected not to treat today. 4. Inflamed Nevus - Right mid back: pedunculated fleshy brown papule Procedure: Skin biopsy by shave technique Location: Right mid back Discussed indications for procedure and expectations including risks and benefits. Verbal consent obtained. Skin prep with alcohol. Local anesthesia with 1% xylocaine, 1/100,000 epinephrine. A sampleof the lesion was removed by shave technique to the level of the dermis and submitted to Pathology.Hemostasis obtained (AlCl). There were no complications; the pt. tolerated the procedure well. The wound was dressed. Post-procedure expectations, wound care and activity restrictions were reviewed. Follow-up based on pathology results. Ok to send results via [facility] RTC: Based on pathology results, or if changes/symptoms in new or existing lesions develop. Please send a reminder letter to schedule a full skin cancer screening in 2 years. The following photos were obtained with patient consent: Note initiated by MICHAEL NORTH LPN. Desiree Kline, Clinical Scribe, am documenting this encounter acting as the scribe for and in the presence of Mirella Pinto MD I performed the above scribed service and agree with the accuracy of the documentation in this encounter. Reviewed and signed by: Mirella Pinto MD Resident in Dermatology [facility] Patient seen in conjunction with staff dirt contractor: Nicky Becerra MD Section of Dermatology [facility] * Nicky Becerra MD - 08/21/2016 11:00 AM EDT I directly supervised Dr. Mirella Pinto during this office visit. Dr. Pinto presented the historyand physical exam to me. I then saw and examined this patient with Dr. Pinto. We reviewed the history and pertinent details and I confirmed the physical findings. I agree with the details of the history and physical exam as documented in Dr. Pinto's note. NICKY BECERRA MD Staff Physician * Nicky Becerra MD - 08/21/2016 11:00 AM EDT I directly supervised Dr. Mirella Pinto during this office visit. Dr. Pinto presented the historyand physical exam to me. I then saw and examined this patient with Dr. Pinto. We reviewed the history and pertinent details and I confirmed the physical findings. I agree with the details of the history and physical exam as documented in Dr. Pinto's note. NICKY BECRERA MD Staff Physician documented in this encounter Plan of Treatment Not on file documented as of this encounter Procedures Procedure Name Priority Date/Time Associated Diagnosis Comments SPECIMEN TO PATHOLOGY (NON-OR) Routine 08/21/2016 12:14 PM EDT Neoplasm of uncertain behavior of skin SURGICAL PATHOLOGY REPORT Routine 08/21/2016 12:13 PM EDT documented in this encounter Results * Specimen to Pathology (NON-OR) (08/21/2016 12:14 PM EDT) AP Specimen 08/21/2016 12:1 4 PM EDT 08/21/2016 3:26 PM EDT Narrative [facility] - 08/21/2016 3:26 PM EDT Specimen requisition ordered. ??Separate Pathology report to follow Resulting Agency Comment Spec In Lab Nicky Becerra MD PATHOLOGY/CYTOLOGY ORDERABLES [facility] [place] [address] * Surgical Pathology Report (08/21/2016 12:13 PM EDT) Final Diagnosis [id number] ?Location: [facility] The signing pathologist has (i) examined the relevant preparation(s) for the specimen(s) and (ii) rendered or confirmed the diagnosis(es). . ?Surgical Pathology DIAGNOSIS Skin, right mid back, shave biopsy: - Intradermal melanocytic nevus, extends near but does not involve the base of the specimen on the plane of section examined Electronically signed by: ??Preeti ROBERTS, aSad Kirkpatrick Verified: ??08/23/2016 ?Dermatopatholo gist CLINICAL INFORMATION Specimen Submitted: A - Skin, right mid back, shave biopsy (1) Clinical History: Pedunculated fleshy papule Clinical Diagnosis: Inflamed nevus rule out melanoma SPECIMEN PROCESSING A - Labeled/Fixative : Right mid back, formalin. Quantity/Size: Single, 0.6 x 0.6 x 0.4 cm. Tissue Description: Shave of skin with a 0.6 cm pedunculated fleshy papule. Sections/Process ing: Inked and bisected. (T1) ??ciara 08/23/2016 8:41 AM EDT [facility] SPECIMEN FROM SKIN / Unknown 08/21/2016 12:13 PM EDT 08/21/2016 12:13 PM EDT Mirella Pinto MD PATHOLOGY/[place] [address] documented in this encounter Visit Diagnoses Diagnosis Neoplasm of uncertain behavior of skin Avila angioma Nevus, non-neoplastic Multiple benign nevi Benign neoplasm of skin, site unspecified Dermatofibroma Benign neoplasm of skin, site unspecified Skin cancer screening Screening for malignant neoplasm of the skin documented in this encounter Care Teams Fish Hatchery Man Relationship Specialty Start Date End Date Arabella Villarreal MD [address] [place] [address] PCP - General 09/16/11 documented as of this encounter
--- OUTSIDE RECORDS SUMMARY | 2024-04-07 01:40 | XMS_ITS | Encounter Summary ---
Author Organization [facility] [place] [address] Care Team Providers Care Third Grade Teacher Name Role Phone Arabella Villarreal MD Primary Care Provider [phone] Encounter Details Date Type Department Care Team (Latest Contact Info) Description 09/22/2014 10:45 AM EDT Ancillary Appointment Hematology [place] [id number] CLINIC, Myron Denney MD [facility] [place] [address] Discharge Disposition: Home Social History Tobacco Use [...] on filedocumented in this encounter Care Teams Third Grade Teacher Relationship Specialty Start Date End Date Arabella Villarreal MD [address] [place] [address] PCP - General 09/16/11 documented as of this encounter
--- OUTSIDE RECORDS SUMMARY | 2024-04-07 01:40 | XMS_ITS | Encounter Summary ---
[place] [address] Care Team Providers Care Insurance Adjustor Name Role Phone Arabella Villarreal MD Primary Care Provider [phone] Reason for Visit * Reason Comments Follow-up Encounter Details Date Type Department Care Team (Late st Contact Info) Description 09/24/2013 11:00 AM EDT Follow-Up Hematology [place] [address] Austin Lauren MD Hodgkin's lymphoma Discharge Disposition: Home Social History [...] Sign Reading Time Taken Comments Blood Pressure 119/75 09/24/2013 11:03 AM EDT Pulse 51 09/24/2013 11:03 AM EDT Temperature 37.1 ??C (98.8 ??F) 09/24/2013 11:03 AM E DT Respiratory Rate 18 09/24/2013 11:03 AM EDT Oxygen Saturation 100% 09/24/2013 11:03 AM EDT Inhaled Oxygen Concentration - - Weight 79.9 kg (176 lb 3.2 oz) 09/24/2013 11:03 AM EDT Height - - Body Mass Index 27.98 06/17/2013 9:22 AM EDT documented in this encounter Progress Notes * Cyndy Alfaro, TOOL ROOM SUPERVISOR - 09/24/2013 11:19 AM EDT HEMATOLOGY FOLLOW UP NOTE Vidhi Perez is a 33 y.o. female being seen [...] is felt to be less likely. Medications: Prior to Admission medications Medication Sig Start Date End Date Taking? Authorizing Provider pyridoxine (VITAMIN B-6) 100 mg tablet Take 100 mg by mouth daily. Yes ProviderTroy MD vitamin 27 & [id number] 60 mg iron-1 mg tablet Take 1 tablet by mouth daily. Yes Troy Kendall MD Lysine HCl 500 mg Tab Take 500 mg by mouth 2 times daily. Indications: Cold sores ProviderTroy MD ranitidine (ZANTAC) 150 mg tablet Take 150 mg by mouth daily as needed. Indications: Gastroesophageal Reflux ProviderTroy MD Allergies: Allergies Allergen Reactions ??? Other (Unclassified Drug) Nausea Only Prefilled saline syringes cause severe nausea--please draw saline flushes from vials or bags only! Interim History: Vidhi Perez returns to clinic today in routine follow-up for her Hodgkin Disease s/p completion of 6 cycles of ABVD chemotherapy on clincal trial CALGB [id number] in March 2012. Since her last visit ~ 3 months ago, Vidhi reports feeling quite well. She denies fevers, chills, drenching sweats, unintentional weight loss or palpable adenopathy. She recently had a sore throat, likely a viral pharyngitis that resolved about a week ago. Vidhi describes an episodes of vaginal bleeding in August for which she saw her OBGYN, who diagnosed her with an ectopic . She received two methotrexate injections with normalization of her beta-Hcg. She has since had a normal period and been given the OK to try to conceive. She has enjoyed the summer having recently returned from a holiday at the [place] in [place]. Her energy is good. She remains active and exercises daily. No residual effects of chemotherapy. Review of Systems: Hematological and Lymphatic ROS: [...] negative except for above. Physical Exam: BP 119/75 Pulse 51 Temp 37.1 ??C (98.8 ??F) (Oral) Resp 18 Wt 79.924 kg (176 lb 3.2 oz) SpO2 100% Gen: well appearing, well [...] grossly intact MS: no bony tenderness Laboratory: Results for VIDHI PEREZ ( ) as of 09/24/2013 11:16 Ref. Range 06/17/2013 09:11 09/24/2013 09:34 WBC Latest Range: 4.0-10.0 x10(3)/mcL 5.2 2.7 (L) RBC Latest Range: 3.93-5.22 x10(6)/mcL 3.95 3.98 Hemoglobin Latest Range: 11.2-15.7 gm/dL 12.4 12.2 Hematocrit Latest Range: 34.0-45.0 % 36.8 36.7 MCV Latest Range: 79.0-94.0 fL 93.2 92.2 MCH Latest Range: 26.6-32.2 pg 31.4 30.7 MCHC Latest Range: 32.0-36.5 gm/dL 33.7 33.2 RDWSD Latest Range: 35.0-46.0 fL 42.0 43.0 RDWCV Latest Range: 10.9-14.4 % 12.3 12.6 Platelets Latest Range: 145-370 x10(3)/mcL 238 216 MPV Latest Range: 9.0-12.0 fL 9.5 9.4 Neutr Abs (ANC) Latest Range: 1.50-6.30 x10(3)/mcL 4.02 1.59 Neutrophils % Latest Range: 34.0-71.0 % 77.7 (H) 59.1 Immature Gran % Latest Range: 0.00-0.66 % 0.00 0.00 Lymphocytes % Latest Range: 19.0-53.0 % 13.7 (L) 30.1 Monocytes % Latest Range: 4.0-13.0 % 6.4 7.4 Eosinophils % Latest Range: 0.0-7.0 % 1.4 1.9 Basophils % Latest Range: 0.0-2.0 % 0.8 1.5 Maryann Gran Abs Latest Range: 0.00-0.05 x10(3)/mcL 0.00 0.00 Lymphocytes Abs Latest Range: 1.0-3.6 x10(3)/mcL 0.7 (L) 0.8 (L) Monocyte Abs Latest Range: 0.2-1.0 x10(3)/mcL 0.3 0.2 Eosinophils Abs Latest Range: 0.0-0.5 x10(3)/mcL 0.1 0.0 Basophils Abs Latest Range: 0.0-0.2 x10(3)/mcL 0.0 0.0 Sed Rate Latest Range: 0-20 mm/hr 7 6 Sodium Latest Range: 135-145 mmol/L 140 140 Potassium Latest Range: 3.5-5.0 mmol/L 4.4 4.6 Chloride Latest Range: 98-107 mmol/L 105 106 CO2 Latest Range: 22-31 mmol/L 27 26 Anion Gap Latest Range: 5-15 mmol/L 8 8 BUN Latest Range: 8-18 mg/dL 16 14 Creatinine Latest Range: 0.70-1.20 mg/dL 0.80 0.81 Estimated GFR Latest Range: >=60 >60 >60 Glucose Lvl No range found 72 88 Calcium Latest Range: 8.5-10.5 mg/dL 9.5 9.6 Total Protein Latest Range: 6.4-8.3 gm/dL 6.8 6.6 Albumin Latest Range: 3.2-5.2 gm/dL 4.4 4.4 Total Bilirubin Latest Range: 0.2-1.3 mg/dL 0.3 0.3 Bili, Direct Latest Range: 0.0-0.3 mg/dL 0.1 0.1 Alk Phos Latest Range: 40-104 unit/L 48 46 AST Latest Range: 0-30 unit/L 33 (H) 24 ALT Latest Range: 0-30 unit/L 40 (H) 25 Radiographic Data: none reviewed today Assessment/Plan: 33 year old now s/p 6 cycles of ABVD for stage IIA HL, ABVD on study PET2 negativecentral review, last dose 03/19/2012. PET showed CR after all therapy. No clinical or laboratory evidence of disease progression. No residual effects of chemotherapy identified. Vidhi will RTC in [address] scans per protocol. Total time spent with patient: 20 minutes Time spent in counseling and coordination of care: 15 minutes Cyndy Alfaro, MSN, TOOL ROOM SUPERVISOR Nurse Practitioner Section of Hematology/Oncology [facility] Cc: Arabella Villarreal MD documented in this encounter Plan of Treatment Not on file documented as of this encounter Procedures Procedure Name Priority Date/Time Associated Diagnosis Comments HEMOGRAM STAT 09/24/2013 9:34 AM EDT Hodgkin's lymphoma DIFFERENTIAL, AUTOMATED STAT 09/24/2013 9:34 AM EDT Hodgkin's lymphoma SEDIMENTATION RATE STAT 09/24/2013 9: 34 AM EDT Hodgkin's lymphoma CBC (WITH DIFF) STAT 09/24/2013 9:34 AM EDT Hodgkin's lymphoma COMPREHENSIVE METABOLIC PANEL STAT 09/24/2013 9:34 AM EDT Hodgkin's lymphoma documented in this encounter Results * (ABNORMAL) Differential, Automated (09/24/2013 9:34 AM EDT) Neutrophil % 59.1 34.0 - 71.0 % CERNER MILLENNIUM Neutrophil Absolute 1.59 1.50 - 6.30 x10(3)/mc L CERNER MILLENNIUM Lymph % 30.1 19.0 - 53.0 % CERNER MILLENNIUM Lymphocytes Abs 0.8(L) 1.0 - 3.6 x10(3)/mc L CERNER MILLENNIUM Monocyte % 7.4 4.0 - 13.0 % CERNER MILLENNIUM Monocyte Abs 0.2 0.2 - 1.0 x10(3)/mc L CERNER MILLENNIUM Eos % 1.9 0.0 - 7.0 % CERNER MILLENNIUM Eosinophils Abs 0.0 0.0 - 0.5 x10(3)/mc L CERNER MILLENNIUM Basophil % 1.5 0.0 - 2.0 % CERNER MILLENNIUM Baso Absolute 0.0 0.0 - 0.2 x10(3)/mc L CERNER MILLENNIUM Immature Gran % 0.00 0.00 - 0.66 % CERNER MILLENNIUM Comment: Immature granulocytes(IG's)percentage and absolute count will include metamyelocytes, myelocytes, and promyelocytes. Blood smears from CBCs yielding IG's will be scanned manually for concordance. If this scan disagrees with the automated IG or if promyelocytes are noted, a manual differential will be performed. Immature Gran Absolute 0.00 0.00 - 0.05 x10(3)/mc L CERNER MILLENNIUM Blood specimen (specimen) 09/24/2013 9:34 AM EDT 09/24/2013 9:45 AM EDT Narrative Resulting Agency Comment Spec In Lab Myron Cruz MD HEMATOLOGY ORDERAB LES [facility] * (ABNORMAL) Hemogram (09/24/2013 9:34 AM EDT) White Blood Cell 2.7(L) 4.0 - 10.0 x10(3)/mc L CERBANNER MILLENNIUM Red Blood Cell 3.98 3.93 - 5.22 x10(6)/mc L CERNER MILLENNIUM Hemoglobin 12.2 11.2 - 15.7 gm/dL CERBANNER MILLENNIUM Hematocrit 36.7 34.0 - 45.0 % CERNER MILLENNIUM Mean Cell Volume 92.2 79.0 - 94.0 fL CERNER MILLENNIUM Mean Cell Hemoglobin 30.7 26.6 - 32.2 pg CERNER MILLENNIUM Mean Cell Hemoglobin Concentration 33.2 32.0 - 36.5 gm/dL CERBANNER MILLENNIUM Platelet 216 145 - 370 x10(3)/mc L CERBANNER MILLENNIUM RDW Standard Deviation 43.0 35.0 - 46.0 fL CERBANNER MILLENNIUM RDW coefficient of variation 12.6 10.9 - 14.4 % CERBANNER MILLENNIUM Mean Platelet Volume 9.4 9.0 - 12.0 fL [facility] Blood specimen (specimen) 09/24/2013 9:34 AM EDT 09/24/2013 9:45 AM EDT Narrative Resulting Agency Comment Spec In Lab Myron Cruz MD HEMATOLOGY ORDERAB LES Performing Organization Address [facility] de Phone Number [facility] * Sedimentation rate (09/24/2013 9:34 AM EDT) Sedimentation Rate Automated 6 0 - 20 mm/hr [facility] Blood specimen (specimen) 09/24/2013 9:34 AM EDT 09/24/2013 9:45 AM EDT Narrative Resulting Agency Comment Spec In Lab Myron Cruz MD HEMATOLOGY ORDERAB LES Performing Organization Address [facility] Co de Phone Number [facility] * Comprehensive metabolic panel (non-fasting) (09/24/2013 9:34 AM EDT) Glucose 88 60 - 199 mg/dL [facility] Comment:Diabetes: >=200 mg/d L plus symptoms Blood Urea Nitrogen 14 8 - 18 mg/dL CERNER MILLENNIUM Creatinine 0.81 0.70 - 1.20 mg/dL CERNER MILLENNIUM Comment: Please note that the pediatric reference intervals supplied above were not validated at [facility]. Results from pediatric patients should be interpreted [...] the following links into your internet browser. [email or web address] Blood specimen (specimen) 09/24/2013 9:34 AM EDT 09/24/2013 9:45 AM EDT Narrative Resulting Agency Comment Spec In Lab Myron Cruz MD CHEMISTRY ORDERABL ES Performing Organization Address City/State/[facility] Co de Phone Number [facility] documented in this encounter Visit Diagnoses Diagnosis Hodgkin's lymphoma Hodgkin's disease, unspecified documented in this encounter Care Teams Insurance Adjustor Relationship Specialty Start Date End Date Arabella Villarreal MD [address] [place] [address] [address] [facility] [address] [place] [address] PCP - General 09/16/11 documented as of this encounter
--- OUTSIDE RECORDS SUMMARY | 2024-04-07 01:40 | XMS_ITS | Encounter Summary ---
Author Organization [facility] [address] Care Team Providers Care Rn Procedures Name Role Phone Arabella Villarreal MD Primary Care Provider [phone] Encounter Details Date Type Department Care Team (Late st Contact Info) Description 07/12/2013 Telephone Hematology [place] [phone] Myron Cruz MD [facility] [address] HEMATOLOGY [place] [address] Social History Tobacco Use Types Packs/Day Years [...] encounter Miscellaneous Notes * Telephone Encounter - Olga Espinoza RN - 07/13/2013 11:37 AM EDT RESEARCH NURSE TELEPHONE NOTE [id number]: Phase II Trial of Response-Adapted Therapy Based on Positron Emission Tomography (PET) for Bulky Stage I and Stage II Classical Hodgkin Lymphoma (HL) Date: 07/12/2013 Reason for call: Advice only (home) Received call from patient, who states that she has not started her menstrual period and is approximately 3 weeks late. She took a home test last evening, which was positive. Therefore, shehad labs done today at her PCP's office for confirmation of potential . Of note, patient is due for her 18 month follow-up per protocol at the end of August. Discussed potentially skipping this set of CTs if she is indeed , although patient would like to still comein for labs and visit with rail express clerk. Dr. Cruz made aware of the above. Patient advised to contact this office for any further questions/concerns. She verbalizes intention of letting us know her status once she has test results. documented in this encounter Plan of Treatment Not on file documented as of this encounter Visit Diagnoses Not on filedocumented in this encounter Care Teams Rn Procedures Relationship Specialty Start Date End Date Arabella Villarreal MD [address] [place] [address] PCP - General 09/16/11 documented as of this encounter
--- OUTSIDE RECORDS SUMMARY | 2024-04-07 01:40 | XMS_ITS | Encounter Summary ---
[place] [address] Care Team Providers Care Missile Inspector Name Role Phone Arabella Villarreal MD Primary Care Provider Encounter Details Date Type Department Care Team (Late st Contact Info) Description 01/11/2015 Orders Only Hematology [place] [address] Pamela Ornelas Social History Tobacco Use Types Packs/Day Years Used Date Smoking Tobacco: Never Smokeless Tobacco: Never Alcohol Use Standard Drinks/Week Comments No 0 (1 standard drink = 0.6 oz pur e alcohol) Sex and Gender Information Value Date Recorded Sex Assigned at Not on file Gender Identity Not on file Sexual Orientation Not on file documented as of this encounter Progress Notes * Pamela Ornelas - 01/11/2015 4:28 PM EST Chasity Gallo 1. Weight: 190 2. Mobility Concerns? NO ?? If Yes, describe: 3. Does the patient have a Mediport? NO 4. Is the patient coming from a skilled care facility? HOME ?? If yes, the patient must be accompanied by a caregiver for the enter exam/transportation arrangements must be made in advance. documented in this encounter Plan of Treatment Not on file documented as of this encounter Visit Diagnoses Not on filedocumented in this encounter Care Teams Missile Inspector Relationship Specialty Start Date End Date Arabella Villarreal MD [address] [place] [address] PCP - General 09/16/11 documented as of this encounter
--- OUTSIDE RECORDS SUMMARY | 2024-04-07 01:40 | XMS_ITS | Encounter Summary ---
Author Organization [facility] [place] [address] Care Team Providers Care Biometrics Instructor Name Role Phone Arabella Villarreal MD Primary Care Provider [phone] Reason for Visit * Reason Comments Follow-up Encounter Details Date Type Department Care Team (Late st Contact Info) Description 09/22/2014 11:30 AM EDT Follow-Up Hematology [place] [address] Myron Cruz MD [facility] [address] [place] [address] Hodgkin's lymphoma Discharge Disposition: Home Social History [...] Sign Reading Time Taken Comments Blood Pressure 104/63 09/22/2014 11:41 AM EDT Pulse 63 09/22/2014 11:41 AM EDT Temperature 36.3 ??C (97.3 ??F) 09/22/2014 11:41 AM E DT Respiratory Rate 18 09/22/2014 11:41 AM EDT Oxygen Saturation 100% 09/22/2014 11:41 AM EDT Inhaled Oxygen Concentration - - Weight 94.5 kg (208 lb 5.4 oz) 09/22/2014 11:41 AM EDT Height 169.1 cm (5' 6.58) 09/22/2014 11:41 AM E DT Body Mass Index 33.05 09/22/2014 11:41 AM EDT documented in this encounter Progress Notes * Cyndy Alfaro, AIR SAW OPERATOR - 09/22/2014 11:56 AM EDT HEMATOLOGY FOLLOW UP NOTE Vidhi Perez is a 34 y.o. female being seen for follow-up of [...] Start Date End Date Taking? Authorizing Provider docusate sodium (COLACE) 50 mg Capsule Take by mouth 2 times daily. Yes PROVIDER, HISTORICAL aspirin 81 mg Tablet, Delayed Release (E.C.) Take 81 mg by mouth daily. Yes PROVIDER, HISTORICAL ranitidine (ZANTAC) 150 mg tablet Take 150 mg by mouth daily as needed. Indications: Gastroesophageal Reflux Yes PROVIDER, HISTORICAL vitamin 27 & [id number] 60 mg iron-1 mg tablet Take 1 tablet by mouth daily. Yes PROVIDER, HISTORICAL Lysine HCl 500 mg Tab Take 500 mg by mouth 2 times daily. Indications: Cold sores PROVIDER, HISTORICAL Allergies: Allergies Allergen Reactions ??? Other [Unclassified Drug] Nausea Only Prefilled saline syringes cause severe nausea--please draw saline flushes from vials or bags only! Interim History: Sinus infection in June treated with antibiotics and a steroid nasal spray 4 weeks left in Vidhi Perez returns to clinic today in routine follow-up for her Hodgkin Disease s/p completion of 6 cycles of ABVD chemotherapy on clincal trial CALGB [id number] in March 2012. It has been 6 months since her last visit at which time she was newly . She has been well since last seen. Her has been relatively uncomplicated. She had little in the way of morning sickness. Her energy has been relatively good. She has been able to exercise on the treadmill nearly every day as wellas keep up with her 5 year old daughter, Talia. 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 No fevers, chills, infections or intercu rrent illnesses. No drenching sweats, unintentional weight loss or adenopathy. She had a sinus infection in June that was treated with steroid nasal spray and a course of oral antibiotics. Review of Systems: Hematological and Lymphatic ROS: [...] negative except for above. Physical Exam: BP 104/63 Pulse 63 Temp(Src) 36.3 ??C (97.3 ??F) (Temporal) Resp 18 Ht 169.1 cm (5' 6.58) Wt 94.5 kg (208 lb 5.4 oz) BMI 33.05 kg/m2 SpO2 100% Gen: well appearing, well developed, well nourished 34-year-old woman in no acute distress. HEENT: PERRL, no oral lesions, mucus membranes moist without ulcerations, hyperemia, exudative plaques or lesions. LN survey: no palpable cervical, supraclavicular, axillary or inguinal adenopathy Chest: clear to ausculatation bilaterally CV: S1S2, RRR, no murmurs, rubs, gallops Abd: soft, non-tender, no palpable masses or hepatosplenomegaly. NABS. Ext: no edema Neuro: grossly intact MS: no bony tenderness Laboratory: Results for VIDHI PEREZ ( ) as of 09/22/2014 13:16 Ref. Range 03/25/2014 10:39 09/22/2014 10:39 WBC Latest Range: 4.0-10.0 x10(3)/mcL 4.2 5.3 RBC Latest Range: 3.93-5.22 x10(6)/mcL 3.64 (L) 3.66 (L) Hemoglobin Latest Range: 11.2-15.7 gm/dL 11.4 11.7 Hematocrit Latest Range: 34.0-45.0 % 33.1 (L) 34.1 MCV Latest Range: 79.0-94.0 fL 90.9 93.2 MCH Latest Range: 26.6-32.2 pg 31.3 32.0 MCHC Latest Range: 32.0-36.5 gm/dL 34.4 34.3 RDWSD Latest Range: 35.0-46.0 fL 40.9 42.8 RDWCV Latest Range: 10.9-14.4 % 12.3 12.7 Platelets Latest Range: 145-370 x10(3)/mcL 198 165 MPV Latest Range: 9.0-12.0 fL 8.8 (L) 9.2 Neutr Abs (ANC) Latest Range: 1.50-6.30 x10(3)/mcL 3.10 4.05 Neutrophils % No range found 74.5 76.4 Immature Gran % No range found 0.00 0.40 Lymphocytes % No range found 13.7 14.7 Monocytes % No range found 9.9 7.5 Eosinophils % No range found 1.4 0.6 Basophils % No range found 0.5 0.4 Maryann Gran Abs Latest Range: 0.00-0.05 x10(3)/mcL 0.00 0.02 Lymphocytes Abs Latest Range: 1.0-3.6 x10(3)/mcL 0.6 (L) 0.8 (L) Monocyte Abs Latest Range: 0.2-1.0 x10(3)/mcL 0.4 0.4 Eosinophils Abs Latest Range: 0.0-0.5 x10(3)/mcL 0.1 0.0 Basophils Abs Latest Range: 0.0-0.2 x10(3)/mcL 0.0 0.0 Sed Rate Latest Range: 0-20 mm/hr 9 17 Sodium Latest Range: 135-145 mmol/L 137 138 Potassium Latest Range: 3.5-5.0 mmol/L 4.1 4.5 Chloride Latest Range: 98-107 mmol/L 103 105 CO2 Latest Range: 22-31 mmol/L 23 23 Anion Gap Latest Range: 5-15 mmol/L 11 10 BUN Latest Range: 8-18 mg/dL 13 9 Creatinine Latest Range: 0.70-1.20 mg/dL 0.55 (L) 0.59 (L) Estimated GFR Latest Range: >=60 >60 >60 Glucose Lvl No range found 86 64 (L) Calcium Latest Range: 8.5-10.5 mg/dL 9.0 8.7 Total Protein Latest Range: 6.1-8.0 gm/dL 6.3 (L) 5.9 (L) Albumin Latest Range: 3.2-5.2 gm/dL 4.1 3.6 Total Bilirubin Latest Range: 0.2-1.3 mg/dL 0.4 0.4 Bili, Direct Latest Range: 0.0-0.3 mg/dL 0.1 0.1 Alk Phos Latest Range: 40-104 unit/L 30 (L) 82 AST Latest Range: 0-30 unit/L 19 26 ALT Latest Range: 0-30 unit/L 19 21 Radiographic Data: none reviewed today Assessment/Plan: 34 year old now s/p 6 cycles of ABVD for stage IIA HL, ABVD on study PET2 negativecentral review, last dose 03/19/2012. PET showed CR after all therapy. No clinical or laboratory evidence of disease progression. No residual effects of chemotherapy identified. CT from 12/2013 showedno active lymphoma. No clinical or laboratory evidence of disease progression. RTC in 6 months per p rotocol though Vidhi was reminded that we remain available in the interim should questions/concerns arise. Cyndy Alfaro, MSN, AIR SAW OPERATOR Nurse Practitioner Section of Hematology/Oncology [facility] Cc: Arabella Villarreal MD documented in this encounter Plan of Treatment Not on file documented as of this encounter Procedures Procedure Name Priority Date/Time Associated Diagnosis Comments HEMOGRAM STAT 09/22/2014 10:39 AM EDT Hodgkin's lymphoma DIFFERENTIAL, AUTOMATED STAT 09/22/2014 10:39 AM EDT Hodgkin's lymphoma SEDIMENTATION RATE STAT 09/22/2014 10 :39 AM EDT Hodgkin's lymphoma CBC (WITH DIFF) STAT 09/22/2014 10:39 AM EDT Hodgkin's lymphoma COMPREHENSIVE METABOLIC PANEL STAT 09/22/2014 10:39 AM EDT Hodgkin's lymphoma documented in this encounter Results * (ABNORMAL) Differential, Automated (09/22/2014 10:39 AM EDT) Neutrophil % 76.4 % CERNER MILLENNIUM Neutrophil Absolute 4.05 1.50 - 6.30 x10(3)/mc L CERNER MILLENNIUM Lymph % 14.7 % CERNER MILLENNIUM Lymphocytes Abs 0.8(L) 1.0 - 3.6 x10(3)/mc L CERNER MILLENNIUM Monocyte % 7.5 % CERNER MILLENNIUM Monocyte Abs 0.4 0.2 - 1.0 x10(3)/mc L CERNER MILLENNIUM Eos % 0.6 % CERNER MILLENNIUM Eosinophils Abs 0.0 0.0 - 0.5 x10(3)/mc L CERNER MILLENNIUM Basophil % 0.4 % CERNER MILLENNIUM Baso Absolute 0.0 0.0 - 0.2 x10(3)/mc L CERNER MILLENNIUM Immature Gran % 0.40 % CERN ER MILLENNIUM Comment: Immature granulocytes(IG's)percentage and absolute count will include metamyelocytes, myelocytes, and promyelocytes. Blood smears from CBCs yielding IG's will be scanned manually for concordance. If this scan disagrees with the automated IG or if promyelocytes are noted, a manual differential will be performed. Immature Gran Absolute 0.02 0.00 - 0.05 x10(3)/mc L CERNER MILLENNIUM Blood specimen (specimen) 09/22/2014 10:39 AM EDT 09/22/2014 10:56 AM EDT Narrative Resulting Agency Comment Spec In Lab Myron Cruz MD HEMATOLOGY ORDERAB LES CERNER MILLENNIUM * (ABNORMAL) Hemogram (09/22/2014 10:39 AM EDT) [facility] White Blood Cell 5.3 4.0 - 10.0 x10(3)/mc L [facility] Red Blood Cell 3.66(L) 3.93 - 5.22 x10(6)/mc L CERNER MILLENNIUM Hemoglobin 11.7 11.2 - 15.7 gm/dL CERNER MILLENNIUM Hematocrit 34.1 34.0 - 45.0 % CERNER MILLENNIUM Mean Cell Volume 93.2 79.0 - 94.0 fL CERNER MILLENNIUM Mean Cell Hemoglobin 32.0 26.6 - 32.2 pg CERNER MILLENNIUM Mean Cell Hemoglobin Concentration 34.3 32.0 - 36.5 gm/dL CERNER MILLENNIUM Platelet 165 145 - 370 x10(3)/mc L CERNER MILLENNIUM RDW Standard Deviation 42.8 35.0 - 46.0 fL CERNER MILLENNIUM RDW coefficient of variation 12.7 10.9 - 14.4 % CERNER MILLENNIUM Mean Platelet Volume 9.2 9.0 - 12.0 fL CERNER MILLENNIUM Blood specimen (specimen) 09/22/2014 10:39 AM EDT 09/22/2014 10:56 AM EDT Narrative Resulting Agency Comment Spec In Lab Myron Cruz MD HEMATOLOGY ORDERAB LES Performing Organization Address City/[facility] Co de Phone Number [facility] * Sedimentation rate (09/22/2014 10:39 AM EDT) [facility] Sedimentation Rate Automated 17 0 - 20 mm/hr CERNER MILLENNIUM Blood specimen (specimen) 09/22/2014 10:39 AM EDT 09/22/2014 10:56 AM EDT Narrative Resulting Agency Comment Spec In Lab Myron Cruz MD HEMATOLOGY ORDERAB LES [facility] * (ABNORMAL) Comprehensive metabolic panel (non-fasting) (09/22/2014 10:39 AM EDT) [facility] Glucose 64(L) 65 - 199 mg/dL CERNER MILLENNIUM Comment:Diabetes: >=200 mg/d L plus symptoms Blood Urea Nitrogen 9 8 - 18 mg/dL CERNER MILLENNIUM Creatinine 0.59(L) 0.70 - 1.20 mg/dL CERNER MILLENNIUM Comment: Please note that the pediatric reference intervals supplied above were not validated at [facility]. Results from pediatric patients [...] the following links into your internet browser. [email or web address] Blood specimen (specimen) 09/22/2014 10:39 AM EDT 09/22/2014 10:56 AM EDT Narrative Resulting Agency Comment Spec In Lab Myron Cruz MD CHEMISTRY ORDERABL ES Performing Organization Address City/State/[facility] Co [place] Phone Number [facility] documented in this encounter Visit Diagnoses Diagnosis Hodgkin's lymphoma Hodgkin's disease, unspecified documented in this encounter Care Teams Biometrics Instructor Relationship Specialty Start Date End Date Arabella Villarreal MD [address] [place] [address] PCP - General 09/16/11 documented as of this encounter
--- OUTSIDE RECORDS SUMMARY | 2024-04-07 01:40 | XMS_ITS | Encounter Summary ---
Author Organization [facility] [place] [address] Care Team Providers Care Auto Apprentice Mechanic Name Role Phone Arabella Villarreal MD Primary Care Provider [phone] Encounter Details Date Type Department Care Team (Late st Contact Info) Description 01/13/2014 Orders Only [place]ology [place] [address] Myron Cruz MD [facility] DR HEMATOLOGY [place] [address] Hodgkin's lymphoma; Examination of participant in clinical trial Social History Tobacco Use Types Packs/Day Years [...] of this encounter Results * Sedimentation rate (03/25/2014 10:39 AM EST) Sedimentation Rate Automated 9 0 - 20 mm/hr [facility] Blood specimen (specimen) 03/25/2014 10:39 AM EST [...] intervals supplied above were not validated at [facility]. Results from pediatric patients should be interpreted [...] the following links into your internet browser. [email or web address] Blood specimen (specimen) 03/25/2014 10:39 AM EST 03/25/2014 10:54 AM EST Narrative Resulting Agency Comment Spec In Lab Myron Cruz MD CHEMISTRY ORDERABL ES [facility] documented in this encounter Visit Diagnoses Diagnosis Hodgkin's lymphoma Hodgkin's disease, unspecified Examination of participant in clinical trial documented in this encounter Care Teams Auto Apprentice Mechanic Relationship Specialty Start Date End Date Arabella Villarreal MD [address] [place] [address] PCP - General 09/16/11 documented as of this encounter
--- OUTSIDE RECORDS SUMMARY | 2024-04-07 01:40 | XMS_ITS | Encounter Summary ---
Author Organization [facility] Address [facility] [place] [address] Care Team Providers Care Mechanical Apprentice Name Role Phone Arabella Villarreal MD Primary Care Provider [phone] Encounter Details Date Type Department Care Team (Latest Contact Info) Description 03/25/2014 10:27 AM EST - 03/25/2014 11:59 PM [facility] Hospital Encounter H[place]ology [place] [address] CLINIC, Myron Denney MD [facility] [place] [address] Discharge Disposition: Home Social History Tobacco Use [...] daily. Reported on 03/18/2016 Indications: Cold sores aspirin 81 mg Tablet, Delayed Release (E.C.) Take 81 mg by mouth daily. Reported on 03/18/2016 03/17/2017 ranitidine (ZANTAC) 150 mg tabletIndications:ga stroesophageal reflux disease Take 150 mg by mouth daily as needed. Indications: Gastroesophageal Reflux 04/02/19 23 vitamin 27 & [id number] 60 mg iron-1 mg tablet Take 1 tablet by mouth daily. 04/02/2022 documented as of this encounter Plan of Treatment Not on file documented as of this encounter Visit Diagnoses Not on filedocumented in this encounter Care Teams Mechanical Apprentice Relationship Specialty Start Date End Date Arabella Villarreal MD [address] [place] [address] PCP - General 09/16/11 documented as of this encounter
--- OUTSIDE RECORDS SUMMARY | 2024-04-07 01:40 | XMS_ITS | Encounter Summary ---
Author Organization [facility] Address [facility] [address] Care Team Providers Care Software Database Architect Name Role Phone Arabella Villarreal MD Primary Care Provider [phone] Encounter Details Date Type Department Care Team (Latest Contact Info) Description 03/22/2013 11:48 AM EST - 03/22/2013 11:59 PM EST Hospital Encounter Hematology [place] [address] CLINIC, Braydon Ruano MD [facility] [place] [address] Discharge Disposition: Home Social History Tobacco Use [...] daily. Reported on 03/18/2016 Indications: Cold sores pyridoxine (VITAMIN B-6) 100 mg tablet Take 100 mg by mouth daily. 03/25/2014 loratadine (CLARITIN) 10 mg tabletIndications:Se asonal allergies Take 10 mg by mouth daily. Indications: Seasonal allergies 11/20/2011 06/17/2013 ranitidine (ZANTAC) 150 mg tabletIndications:ga stroesophageal reflux disease Take 150 mg by mouth daily as needed. Indications: Gastroesophageal Reflux 04/02/19 23 vitamin 27 & zhdowzb-bhdm-UM 60 mg iron-1 mg tablet Take 1 tablet by mouth daily. 04/02/2022 documented as of this encounter Plan of Treatment Not on file documented as of this encounter Visit Diagnoses Not on filedocumented in this encounter Care Teams Software Database Architect Relationship Specialty Start Date End Date Arabella Villarreal MD [address] [facility] [address] [place] [address] PCP - General 09/16/11 documented as of this encounter
--- OUTSIDE RECORDS SUMMARY | 2024-04-07 01:40 | XMS_ITS | Encounter Summary ---
[place] [address] Care Team Providers Care Hydrologic Engineer Name Role Phone Arabella Villarreal MD Primary Care Provider [phone] Encounter Details Date Type Department Care Team (Latest Contact Info) Description 03/22/2013 11:49 AM EST - 03/22/2013 12:05 PM [facility] Hospital [place] [id number] Hodgkin's lymphoma Social History Tobacco Use Types [...] daily. Reported on 03/18/2016 Indications: Cold sores loratadine (CLARITIN) 10 mg tabletIndications:Se asonal allergies Take 10 mg by mouth daily. Indications: Seasonal allergies 11/20/2011 06/17/2013 ranitidine (ZANTAC) 150 mg tabletIndications:ga stroesophageal reflux disease Take 150 mg by mouth daily as needed. Indications: Gastroesophageal Reflux 04/02/19 23 vitamin 27 & [id number] 60 mg iron-1 mg tablet Take 1 tablet by mouth daily. 04/02/2022 documented as of this encounter Miscellaneous Notes * Miscellaneous - Provider, Scanning - 03/26/2013 10:23 AM EST documented in this encounter Plan of Treatment Not on file documented as of this encounter Procedures Procedure Name Priority Date/Time Associated Diagnosis Comments CT CHEST ABDOMEN PELVIS W CONTRAST (GENERIC) Routine 03/22/2013 2:22 PM EST Hodgkin's disease, unspecified documented in this encounter Results * CT chest, abdomen, & pelvis with contrast (03/22/2013 2:22 PM EST) Anatomical Region Laterality Modality Computed Tomogra phy 03/22/2013 2:22 PM EST Narrative 03/22/2013 2:[address] Chest / Abdomen / Pelvis With Contrast Clinical History DO NOT use RECIST criteria Lymphoma study protocol patient/use bi-dimensional measurements Hodgkin's lymphoma Comparison October 01, 2012. Technique 110 mL Omnipaque 350 utilized for intravenous contrast. ??Oral contrast also administered. Findings The following indicator sites are measured: Lesion 1: ??Mediastinal lymphadenopathy. Previous scan: ??Series 2, image 16 16 x 32 mm. Current scan: ??Series 2, image 17, 14x25 mm. Lesion 2: ??Mediastinal lymphadenopathy. Previous scan: ??Series 2, image 23, 9x32 mm. Current scan: ??Series 2, image 24, 6x30 mm. Lesion 3: ??Right paratracheal lymph node. Previous scan: ??Series 2, image 12, 17x21 mm. Current scan: ??Series 2, image 13, 16x16 mm. Chest: The lungs are remarkable for new mild posterior basilar pleural nodularity of indeterminate etiology. ??Trace new right pleural fluid. No new areas of thoracic adenopathy. ??Decrease in previously noted measured areas as noted above. ??No axillary adenopathy. Abdomen/pelvis: The liver is enlarged, measuring approximately 21 cm cranial-caudal dimension. ?? A stable, approximate 8 mm indeterminate hypodensity seen along the anterior aspect of the left lobe. ??No dilated biliary ducts or perihepatic fluid. The spleen, gallbladder, pancreas, adrenal glands, and kidneys are unremarkable and stable. No adenopathy, free fluid, or free air. The bowel pattern is unremarkable. ??No dilated loops of bowel or areas of abnormal small bowel wall thickening. The osseous structures are normal. Impression ? 1. Continued decreased mediastinal lymphadenopathy as noted above. ? 2. No new areas of disease. Procedure Note Braydon Ha MD - 03/22/[address] Chest / Abdomen / Pelvis With Contrast Clinical History DO NOT use RECIST criteria Lymphoma study protocol patient/use bi-dimensional measurements Hodgkin's lymphoma Comparison October 01, 2012. Technique 110 mL Omnipaque 350 utilized for intravenous contrast. Oral contrastalso administered. Findings The following indicator sites are measured: Lesion 1: Mediastinal lymphadenopathy. Previous scan: Series 2, image 16 16 x 32 mm. Current scan: Series 2, image 17, 14x25 mm. Lesion 2: Mediastinal lymphadenopathy. Previous scan: Series 2, image 23, 9x32 mm. Current scan: Series 2, image 24, 6x30 mm. Lesion 3: Right paratracheal lymph node. Previous scan: Series 2, image 12, 17x21 mm. Current scan: Series 2, image 13, 16x16 mm. Chest: The lungs are remarkable for new mild posterior basilar pleural nodularityof indeterminate etiology. Trace new right pleural fluid. No new areas of thoracic adenopathy. Decrease in previously notedmeasured areas as noted above. No axillary adenopathy. Abdomen/pelvis: The liver is enlarged, measuring approximately 21 cm cranial-caudaldimension. A stable, approximate 8 mm indeterminate hypodensity seen along theanterior aspect of the left lobe. No dilated biliary ducts or perihepatic fluid. The spleen, gallbladder, pancreas, adrenal glands, and kidneys areunremarkable and stable. No adenopathy, free fluid, or free air. The bowel pattern is unremarkable. No dilated loops of bowel or areas of abnormal small bowel wall thickening. The osseous structures are normal. Impression 1. Continued decreased mediastinal lymphadenopathy as noted above. 2. No new areas of disease. Myron Cruz MD IMG CT ORDERABLES documented in this encounter Visit Diagnoses Diagnosis Hodgkin's lymphoma Hodgkin's disease, unspecified documented in this encounter Administered Medications Inactive Administered Medications - up to 3 most recent administrations Medication Order MAR Action Action Date Dose Rate Site iohexol (OMNIPAQUE) 350 mg iodine/mL injection 17,500 mg 17,500 mg (50 mL), Oral, ONCE PRN, 1 dose, Starting on Fri03/22/13 at 1410, Until Fri03/22/13 at 1200, Per Protocol, Routine Given 03/22/2013 12:00 PM EST 17,500 mg iohexol (OMNIPAQUE) 350 mg iodine/mL injection 38,500 mg 38,500 mg (110 mL), Intravenous, ONCE PRN, 1 dose, Starting on Fri03/22/13 at 1410, Until Fri03/22/13 at 1412, Per Protocol, Routine Given 03/22/2013 2:12 PM EST 38,500 mg documented in this encounter Care Teams Hydrologic Engineer Relationship Specialty Start Date End Date Arabella Villarreal MD [address] [place] [address] PCP - General 09/16/11 documented as of this encounter
--- OUTSIDE RECORDS SUMMARY | 2024-04-07 01:40 | XMS_ITS | Encounter Summary ---
Author Organization [facility] [place] [address] Care Team Providers Care Setup Operator Name Role Phone Arabella Villarreal MD Primary Care Provider [phone] Encounter Details Date Type Department Care Team (Latest Contact Info) Description 06/17/2013 9:03 AM EDT - 06/17/2013 11:59 PM EDT Hospital Encounter Hematology [place] [address] CLINIC, Myron Denney MD [facility] [place] [address] Discharge Disposition: Home Social History Tobacco Use [...] Take 100 mg by mouth daily. 03/25/2014 ranitidine (ZANTAC) 150 mg tabletIndications:ga stroesophageal reflux disease Take 150 mg by mouth daily as needed. Indications: Gastroesophageal Reflux 04/02/19 23 vitamin 27 & [id number] 60 mg iron-1 mg tablet Take 1 tablet by mouth daily. 04/02/2022 documented as of this encounter Plan of Treatment Not on file documented as of this encounter Visit Diagnoses Not on filedocumented in this encounter Care Teams Setup Operator Relationship Specialty Start Date End Date Arabella Villarreal MD [address] [place] [address] PCP - General 09/16/11 documented as of this encounter
--- OUTSIDE RECORDS SUMMARY | 2024-04-07 01:40 | XMS_ITS | Encounter Summary ---
[place] [address] Care Team Providers Care Accounts Receivable Collector Name Role Phone Arabella Villarreal MD Primary Care Provider [phone] Encounter Details Date Type Department Care Team (Late st Contact Info) Description 12/15/2013 Orders Only Hematology [place] [address] Pamela Ornelas Social History Tobacco Use Types [...] encounter Progress Notes * Pamela Ornelas - 12/15/2013 1:16 PM EDT 12/15 - NEED CT SAFETY QUESTIONS - ONCE OBTAINED, WILL SCHEDULE PT FOR NEXT AVAILABLE - CALLED PT, LM documented in this encounter Plan of Treatment Not on file documented as of this encounter Visit Diagnoses Not on filedocumented in this encounter Care Teams Accounts Receivable Collector Relationship Specialty Start Date End Date Arabella Villarreal MD [address] [place] [address] PCP - General 09/16/11 documented as of this encounter
--- OUTSIDE RECORDS SUMMARY | 2024-04-07 01:40 | XMS_ITS | Encounter Summary ---
Author Organization [facility] [place] [address] Care Team Providers Care Scale Installer Name Role Phone Arabella Villarreal MD Primary Care Provider [phone] Encounter Details Date Type Department Care Team (Latest Contact Info) Description 09/22/2014 10:21 AM EDT - 09/22/2014 11:59 PM EDT Hospital Encounter Hematology [place] [address] CLINIC, Myron Denney MD [facility] [place] [address] Discharge Disposition: Home Social History Tobacco Use [...] Gastroesophageal Reflux 04/02/19 23 vitamin 27 & [id number] 60 mg iron-1 mg tablet Take 1 tablet by mouth daily. 04/02/2022 documented as of this encounter Plan of Treatment Not on file documented as of this encounter Visit Diagnoses Not on filedocumented in this encounter Care Teams Scale Installer Relationship Specialty Start Date End Date Arabella Villarreal MD [address] [facility] [address] [place] [address] PCP - General 09/16/11 documented as of this encounter
--- OUTSIDE RECORDS SUMMARY | 2024-04-07 01:40 | XMS_ITS | Encounter Summary ---
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 Chasity states that she had vaginal bleeding last week and saw her OBGYN, who diagnosed her with an ectopic . Perher report, Chasity received two methotrexate injections and nothing's really happened since then. Reports that she is feeling overwhelmed currently; active listening and support offered. Chasity states that she is due to follow-up this Friday with her OBGYN, at which point she hopes to know moreabout the plan for trying for another . CT scanning still on hold for now, until she has more information. documented in this encounter Plan of Treatment Not on file documented as of this encounter Visit Diagnoses Not on filedocumented in this encounter Care Teams Farm Mortgage Agent Relationship Specialty Start Date End Date Arabella Villarreal MD [address] [place] [address] PCP - General 09/16/11 documented as of this encounter
--- OUTSIDE RECORDS SUMMARY | 2024-04-07 01:40 | XMS_ITS | Encounter Summary ---
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 female being seen for follow-up of [...] lymphoma is felt to be less likely. Interim History: Vidhi Perez returns to clinic today in routine follow-up for her Hodgkin Disease s/p completion of 6 cycles of ABVD chemotherapy on clincal trial CAL[facility] [id number] in March 2012. It has been ~12 months since her last visit. Since that time, she has been quite well. She denies fevers, chills, recurrent infections or intercurrent illnesses. 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 Her oldest daughter, Talia is now 8 years old and her youngest daughter, Alanna is two years old. They are active children and keep she and Nehemiah busy. They are planning on trying for a third child this spring/summer. Vidhi denies any new lumps/bumps, fevers/chills, drenching night sweats or unintentional weight loss. In the past year, she underwent surgery on the right upper extremity for carpal tunnel syndrome withimprovement in symptoms of pain, burning and numbness. No new health-related concerns. Review of Systems: Hematological and Lymphatic ROS: [...] and was otherwise negative except for above. Medications: Prior to Admission medications Medication Sig Start Date End Date Taking? Authorizing Provider pyridoxine, vitamin B6, (B-6) 100 mg Tablet Take 100 mg by mouth daily. Yes PROVIDER, HISTORICAL FLUTICASONE PROPIONATE (FLONASE ALLERGY RELIEF NASL) by Nasal route. Yes PROVIDER, HISTORICAL docusate sodium (COLACE) 50 mg Capsule Take by mouth daily. Reported on 03/18/2016 03/17/17 Yes PROVIDER, HISTORICAL aspirin 81 mg Tablet, Delayed Release (E.C.) Take 81 mg by mouth daily. Reported on 03/18/2016 03/17/17 Yes PROVIDER, HISTORICAL Lysine HCl 500 mg Tab Take 500 mg by mouth 2 times daily. Reported on 03/18/2016 Indications: Cold sores Yes PROVIDER, HISTORICAL ranitidine (ZANTAC) 150 mg tablet Take 150 mg by mouth daily as needed. Indications: Gastroesophageal Reflux Yes PROVIDER, HISTORICAL vitamin 27 & [id number] 60 mg iron-1 mg tablet Take 1 tablet by mouth daily. Yes PROVIDER, HISTORICAL Allergies: Allergies Allergen Reactions ??? Other [Unclassified Drug] Nausea Only Prefilled saline syringes cause severe nausea--please draw saline flushes from vials or bags only! Physical Exam: BP 139/64 Pulse 69 Temp 37.3 ??C (99.1 ??F) (Temporal) Resp 18 Wt 82.2 kg (181 lb 3.2 oz) SpO2 100% BMI 28.91 kg/m2 Gen: well appearing, well developed, well nourished 36 y.o. woman in no acute distress. HEENT: PERRL, no oral lesions, mucus membranes moist without ulcerations, hyperemia, exudative plaques or lesions. LN survey: no palpable cervical, supraclavicular, axillary or inguinal adenopathy Chest: clear to ausculatation bilaterally CV: S1S2, RRR, no murmurs, rubs, gallops Abd: soft, non-tender,non-distended, without palpable masses or hepatosplenomegaly. NABS. Ext: no edema Neuro: grossly intact MS: no bony tenderness Laboratory: Results for VIDHI PEREZ ( ) as of 03/17/2017 13:36 Ref. Range 03/17/2017 11:57 WBC Latest Ref Range: 4.0 - 9.5 x10(3)/mcL 3.7 (L) RBC Latest Ref Range: 4.00 - 5.21 x10(6)/mcL 3.74 (L) Hemoglobin Latest Ref Range: 11.7 - 15.5 gm/dL 11.6 (L) Hematocrit Latest Ref Range: 35.7 - 45.8 % 34.5 (L) MCV Latest Ref Range: 82.6 - 94.4 fL 92.2 MCH Latest Ref Range: 27.1 - 32.0 pg 31.0 MCHC Latest Ref Range: 31.7 - 35.0 gm/dL 33.6 RDWSD Latest Ref Range: 37.0 - 46.0 fL 41.0 RDWCV Latest Ref Range: 11.5 - 14.1 % 12.0 Platelets Latest Ref Range: 145 - 357 x10(3)/mcL 253 MPV Latest Ref Range: 7.6 - 12.9 fL 9.3 nRBC % Auto Latest Units: % 0.0 nRBC Abs Auto Latest Ref Range: 0.000 - 0.000 x10(3)/mcL 0.000 Neutr Abs (ANC) Latest Ref Range: 1.70 - 6.10 x10(3)/mcL 2.18 Neutrophils % Latest Units: % 58.6 Immature Gran % Latest Units: % 0.30 Lymphocytes % Latest Units: % 29.0 Monocytes % Latest Units: % 8.3 Eosinophils % Latest Units: % 1.6 Basophils % Latest Units: % 2.2 Maryann Gran Abs Latest Ref Range: 0.00 - 0.04 x10(3)/mcL 0.01 Lymphocytes Abs Latest Ref Range: 0.9 - 3.2 x10(3)/mcL 1.1 Monocyte Abs Latest Ref Range: 0.3 - 0.9 x10(3)/mcL 0.3 Eosinophils Abs Latest Ref Range: 0.0 - 0.4 x10(3)/mcL 0.1 Basophils Abs Latest Ref Range: 0.0 - 0.1 x10(3)/mcL 0.1 Sed Rate Latest Ref Range: 0 - 20 mm/hr 7 Sodium Latest Ref Range: 135 - 145 mmol/L 140 Potassium Latest Ref Range: 3.5 - 5.0 mmol/L 4.0 Chloride Latest Ref Range: 98 - 107 mmol/L 103 CO2 Latest Ref Range: 22 - 31 mmol/L 27 Anion Gap Latest Ref Range: 5 - 15 mmol/L 10 BUN Latest Ref Range: 8 - 18 mg/dL 16 Creatinine Latest Ref Range: 0.70 - 1.20 mg/dL 0.74 Estimated GFR Latest Ref Range: >=60 >60 Glucose Lvl Latest Ref Range: 65 - 199 mg/dL 98 Calcium Latest Ref Range: 8.5 - 10.5 mg/dL 9.2 Total Protein Latest Ref Range: 6.1 - 8.0 gm/dL 6.5 Albumin Latest Ref Range: 3.2 - 5.2 gm/dL 4.2 Total Bilirubin Latest Ref Range: 0.2 - 1.3 mg/dL 0.2 Alk Phos Latest Ref Range: 40 - 104 unit/L 41 AST Latest Ref Range: 0 - 30 unit/L 16 ALT Latest Ref Range: 0 - 30 unit/L 16 Radiographic Data: No new images reviewed today Assessment/Plan: 36 y.o. woman s/p 6 cycles of ABVD for stage IIA HL, ABVD on study PET2 negative central review, last dose 03/19/2012. PET showed complete remission after all therapy. No clinical or laboratory evidence of disease progression. No residual effects of chemotherapy identified. Will not obtain scans unless clinical suspicion arises. Follow-up be folded into her yearly physical with Dr. Villarreal. Vidhi is aware that it is extremely unlikely that her Hodgkin Disease recur. We discussed potential late side effects to chemotherapy including cardiomyopathy from antracyclines though her cumulative dose is significantly lower than maximum of 450mg/M2. She was instructed to watch for s/s cardiomyopathy including increased fatigue, GIBSON, peripheral edema. In addition, we would ask Dr. Villarreal to obtain yearly labs including CBC, CMP and sed rate [used as a tumor marker for HD as elevated on diagnosis]. Vidhi is attentive to general health and well-being. Routine healthcare and age-appropriatehealth screenings will continue under the direction of Dr. Villarreal. Vidhi was reminded that we remain available in the interim should questions/concerns arise. 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
--- OUTSIDE RECORDS SUMMARY | 2024-04-07 01:40 | XMS_ITS | Encounter Summary ---
Author Organization [facility] [place] [address] Care Team Providers Care Spun Paste Machine Operator Name Role Phone Arabella Villarreal MD Primary Care Provider [phone] Encounter Details Date Type Department Care Team (Latest Contact Info) Description 09/24/2013 10:00 AM EDT Ancillary Appointment Hematology [place] [id number] CLINIC, Myron Denney MD [facility] [place] [address] Examination of participant in clinical trial Discharge [...] Diagnoses Diagnosis Examination of participant in clinical trial documented in this encounter Care Teams Spun Paste Machine Operator Relationship Specialty Start Date End Date Arabella Villarreal MD [address] [place] [address] PCP - General 09/16/11 documented as of this encounter
--- OUTSIDE RECORDS SUMMARY | 2024-04-07 01:40 | XMS_ITS | Encounter Summary ---
[place] [address] Care Team Providers Care Drafting Supervisor Name Role Phone Arabella Villarreal MD Primary Care Provider [phone] Encounter Details Date Type Department Care Team (Late st Contact Info) Description 03/21/2014 Telephone Hematology [place] [phone] Olga Espinoza, RN Social History Tobacco Use [...] Telephone Encounter - Olga Espinoza RN - 03/21/2014 12:28 PM EST RESEARCH NURSE TELEPHONE NOTE [id number]: Phase II Trial of Response-Adapted Therapy Based on Positron Emission Tomography (PET) for Bulky Stage I and Stage II Classical Hodgkin Lymphoma (HL) Reason for call: Follow-up testing (home) Received voicemail from Chasity, stating that she is currently 9 weeks . Scheduled for 2 year follow-up per protocol this Friday (03/25/14) with labs and MD/FULFILLMENT REPRESENTATIVE visit. Last CT imaging was done 12/24/13 off-study schedule (see telephone note from December 2013 for details). MD/GURWINDER and relations coordinator notified of . Per previous discussion with study chair, patient will forgo CTimaging per protocol until after delivery. documented in this encounter Plan of Treatment Not on file documented as of this encounter Visit Diagnoses Not on filedocumented in this encounter Care Teams Drafting Supervisor Relationship Specialty Start Date End Date Arabella Villarreal MD [address] [place] [address] [address] [facility] [place] [address] PCP - General 09/16/11 documented as of this encounter
--- OUTSIDE RECORDS SUMMARY | 2024-04-07 01:40 | XMS_ITS | Encounter Summary ---
Author Organization [facility] [place] [address] Care Team Providers Care Broacher Name Role Phone Arabella Villarreal MD Primary Care Provider [phone] Reason for Visit * Reason Comments Lymphoma Follow-up Encounter Details Date Type Department Care Team (Late st Contact Info) Description 06/17/2013 10:00 AM EDT Follow-Up Hematology [place] [address] Myron Cruz MD [facility] [address] [place]AT[place] [address] Hodgkin's lymphoma Discharge Disposition: Home Social History [...] Sign Reading Time Taken Comments Blood Pressure 111/67 06/17/2013 9:22 AM EDT Pulse 55 06/17/2013 9:22 AM EDT Temperature 36.5 ??C (97.7 ??F) 06/17/2013 9:22 AM ED T Respiratory Rate 18 06/17/2013 9:22 AM EDT Oxygen Saturation 100% 06/17/2013 9:22 AM EDT Inhaled Oxygen Concentration - - Weight 78.5 kg (173 lb 1 oz) 06/17/2013 9:22 AM EDT Height 169 cm (5' 6.54) 06/17/2013 9:22 AM EDT Body Mass Index 27.49 06/17/2013 9:22 AM EDT documented in this encounter Progress Notes * Cyndy Alfaro, INTERIM CONTROLLER - 06/17/2013 10:03 AM EDT HEMATOLOGY FOLLOW UP NOTE Vidhi Perez is a 32 y.o. female being seen for follow-up of Hodgkin's lymphoma. Patient Active Problem List Diagnosis ??? Hodgkin's [...] Take 100 mg by mouth daily. Yes Troy Kendall MD Lysine HCl 500 mg Tab Take 500 mg by mouth 2 times daily. Indications: Cold sores Yes Troy Kendall MD ranitidine (ZANTAC) 150 mg tablet Take 150 mg by mouth daily as needed. Indications: Gastroesophageal Reflux Yes Troy Kendall MD vitamin 27 & [id number] 60 mg iron-1 mg tablet Take 1 tablet by mouth daily. Yes Troy Kendall MD Allergies: Allergies Allergen Reactions ??? Other (Unclassified Drug) Nausea Only Prefilled saline syringes cause severe nausea--please draw saline flushes from vials or bags only! Interim History: Vidhi Perez returns to clinic today in routine follow-up for her Hodgkin Disease s/p completion of 6 cycles of ABVD chemotherapy on clincal trial CALGB 47095 in March 2012. Since her last visit ~ 3 months ago, Vidhi reports feeling quite well. She denies fevers, chills, drenching sweats, unintentional weight loss or palpable adenopathy. She describes repeated problems with sinuses this winter. She describes congestion and ear pain. She was treated with 3 courses of oral antibiotics, nasal and oral steroids. Reportedly a CT of the sinuses was unremarkable. Her symptoms are improving though not completely resolved. Her energy is good. 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 She is exercising more and able to work out longer periods of time. No residual neuropathy. Review of Systems: Hematological and Lymphatic ROS: negative Energy level: good Pain: No Appetite: good Fevers/chills/sweats: No Bruising/bleeding/melena: No Recent infections: No Nausea/vomiting/diarrhea/constipation: No, GERD well controlled with a daily dose of H2 ector SOB/GIBSON/chest pain: No Change in adenopathy or other masses: No Unexpected weight loss or gain: as noted above Skin rashes or petechiae: no skin rashes or lesions Other systems: No peripheral neuropathy A 12-pt review of systems was performed and was otherwise negative except for above. Physical Exam: BP 111/67 Pulse 55 Temp 36.5 ??C (97.7 ??F) (Oral) Resp 18 Ht 169 cm (5' 6.54) Wt 78.5 kg (173 lb 1 oz) BMI 27.49 kg/m2 SpO2 100% Gen: well appearing, well developed, well nourished 32-year-old woman in no acute distress. HEENT: PERRL, no oral lesions, mucus membranes moist without ulcerations, hyperemia, exudative plaques or lesions. LN survey: no palpable cervical or supraclavicular or axillary adenopathy Chest: clear to ausculatation bilaterally CV: S1S2, RRR, no murmurs, rubs, gallops Abd: soft, flat, non-tender, no palpable masses or hepatosplenomegaly. NABS. Ext: no edema Neuro: grossly intact MS: no bony tenderness Laboratory: Results for VIDHI PEREZ ( ) as of 06/19/2013 17:57 Ref. Range 06/17/2013 09:11 WBC Latest Range: 4.0-10.0 x10(3)/mcL 5.2 RBC Latest Range: 3.93-5.22 x10(6)/mcL 3.95 Hemoglobin Latest Range: 11.2-15.7 gm/dL 12.4 Hematocrit Latest Range: 34.0-45.0 % 36.8 MCV Latest Range: 79.0-94.0 fL 93.2 MCH Latest Range: 26.6-32.2 pg 31.4 MCHC Latest Range: 32.0-36.5 gm/dL 33.7 RDWSD Latest Range: 35.0-46.0 fL 42.0 RDWCV Latest Range: 10.9-14.4 % 12.3 Platelets Latest Range: 145-370 x10(3)/mcL 238 MPV Latest Range: 9.0-12.0 fL 9.5 Neutr Abs (ANC) Latest Range: 1.50-6.30 x10(3)/mcL 4.02 Neutrophils % Latest Range: 34.0-71.0 % 77.7 (H) Immature Gran % Latest Range: 0.00-0.66 % 0.00 Lymphocytes % Latest Range: 19.0-53.0 % 13.7 (L) Monocytes % Latest Range: 4.0-13.0 % 6.4 Eosinophils % Latest Range: 0.0-7.0 % 1.4 Basophils % Latest Range: 0.0-2.0 % 0.8 Maryann Gran Abs Latest Range: 0.00-0.05 x10(3)/mcL 0.00 Lymphocytes Abs Latest Range: 1.0-3.6 x10(3)/mcL 0.7 (L) Monocyte Abs Latest Range: 0.2-1.0 x10(3)/mcL 0.3 Eosinophils Abs Latest Range: 0.0-0.5 x10(3)/mcL 0.1 Basophils Abs Latest Range: 0.0-0.2 x10(3)/mcL 0.0 Sed Rate Latest Range: 0-20 mm/hr 7 Sodium Latest Range: 135-145 mmol/L 140 Potassium Latest Range: 3.5-5.0 mmol/L 4.4 Chloride Latest Range: 98-107 mmol/L 105 CO2 Latest Range: 22-31 mmol/L 27 Anion Gap Latest Range: 5-15 mmol/L 8 BUN Latest Range: 8-18 mg/dL 16 Creatinine Latest Range: 0.70-1.20 mg/dL 0.80 Estimated GFR Latest Range: >=60 >60 Glucose Lvl No range found 72 Calcium Latest Range: 8.5-10.5 mg/dL 9.5 Total Protein Latest Range: 6.4-8.3 gm/dL 6.8 Albumin Latest Range: 3.2-5.2 gm/dL 4.4 Total Bilirubin Latest Range: 0.2-1.3 mg/dL 0.3 Bili, Direct Latest Range: 0.0-0.3 mg/dL 0.1 Alk Phos Latest Range: 40-104 unit/L 48 AST Latest Range: 0-30 unit/L 33 (H) ALT Latest Range: 0-30 unit/L 40 (H) Radiographic Data: none reviewed today Assessment/Plan: 32 year old now s/p 6 cycles of ABVD for stage IIA HL, ABVD on study PET2 negativecentral review, last dose 03/19/2012. PET showed CR after all therapy. No clinical, laboratory or radiographic evidence of disease progression. No residual effects of chemotherapy identified. Vidhi will RTC in [address] scans per protocol. Total time spent with patient: 30 minutes Time spent in counseling and coordination of care: 20 minutes Cyndy Alfaro, MSN, INTERIM CONTROLLER Nurse Practitioner Section of Hematology/Oncology [facility] Cc: Arabella Villarreal MD documented in this encounter Plan of Treatment Not on file documented as of this encounter Procedures Procedure Name Priority Date/Time Associated Diagnosis Comments DIFFERENTIAL, AUTOMATED STAT 06/17/2013 9:11 AM EDT SEDIMENTATION RATE STAT 06/17/2013 9: 11 AM EDT Hodgkin's lymphoma CBC (WITH DIFF) STAT 06/17/2013 9:11 AM EDT Hodgkin's lymphoma COMPREHENSIVE METABOLIC PANEL STAT 06/17/2013 9:11 AM EDT Hodgkin's lymphoma documented in this encounter Results * (ABNORMAL) Differential, Automated (06/17/2013 9:11 AM EDT) Neutrophil % 77.7(H) 34.0 - 71.0 % CERNER MILLENNIUM Neutrophil Absolute 4.02 1.50 - 6.30 x10(3)/mc L CERNER MILLENNIUM Lymph % 13.7(L) 19.0 - 53.0 % CERNER MILLENNIUM Lymphocytes Abs 0.7(L) 1.0 - 3.6 x10(3)/mc L CERNER MILLENNIUM Monocyte % 6.4 4.0 - 13.0 % CERNER MILLENNIUM Monocyte Abs 0.3 0.2 - 1.0 x10(3)/mc L CERNER MILLENNIUM Eos % 1.4 0.0 - 7.0 % CERNER MILLENNIUM Eosinophils Abs 0.1 0.0 - 0.5 x10(3)/mc L CERNER MILLENNIUM Basophil % 0.8 0.0 - 2.0 % CERNER MILLENNIUM Baso [...] Absolute 0.00 0.00 - 0.05 x10(3)/mc L MAGDALENA LEHMANENNIUM Blood specimen (specimen) 06/17/2013 9:11 AM EDT 06/17/2013 9:26 AM EDT Myron Cruz MD HEMATOLOGY ORDERAB LES MAGDALENA CARTER * Sedimentation rate (06/17/2013 9:11 AM EDT) Sedimentation Rate Automated 7 0 - 20 mm/hr MAGDALENA LEHMANENNIUM Blood specimen (specimen) 06/17/2013 9:11 AM EDT 06/17/2013 9:26 AM EDT Narrative Resulting Agency Comment Spec In Lab Myron Cruz MD HEMATOLOGY ORDERAB LES CERNER MILLENNIUM * (ABNORMAL) Comprehensive metabolic panel (non-fasting) (06/17/2013 9:11 AM EDT) [facility] Signature Glucose 72 60 - 199 mg/dL CERNER MILLENNIUM Comment:Diabetes: >=200 mg/d L plus symptoms Blood Urea Nitrogen 16 8 - 18 mg/dL CERNER MILLENNIUM Creatinine 0.80 0.70 - 1.20 mg/dL CERNER MILLENNIUM Comment: Please note that the pediatric reference intervals supplied above were not validated at [facility]. Results from pediatric patients should be interpreted in conjunction to the patient's age, height and muscle mass. Sodium 140 135 - 145 mmol/L CERNER MILLENNIUM Potassium 4.4 3.5 - 5.0 mmol/L CERNER MILLENNIUM Comment: Please note: ??Patients with WBC >100,000 may have falsely elevated Potassium levels. ??For accurate Potassium quantification in these patients send serum separator tube (gold top) for subsequent determinations. ??Contact the Clinical Chemistry Laboratory if there are any questions. Chloride 105 98 - 107 mmol/L CERNER MILLENNIUM Carbon Dioxide 27 22 - 31 mmol/L CERNER MILLENNIUM Anion Gap 8 5 - 15 mmol/L CERNER MILLENNIUM Calcium 9.5 8.5 - 10.5 mg/dL CERNER MILLENNIUM Protein, Total 6.8 6.4 - 8.3 gm/dL CERNER MILLENNIUM Albumin 4.4 3.2 - 5.2 gm/dL CERNER MILLENNIUM Aspartate Aminotransferase 33(H) 0 - 30 unit/L CERNER MILLENNIUM Alanine Aminotransferase 40(H) 0 - 30 unit/L CERNER MILLENNIUM Alkaline Phosphatase 48 40 - 104 unit/L CERNER MILLENNIUM Bilirubin, [...] the following links into your internet browser. http://www.nkdep.nih.gov/lab-evaluation.shtml http://www.kidney.org/professionals/ Blood specimen (specimen) 06/17/2013 9:11 AM EDT 06/17/2013 9:26 AM EDT Narrative Resulting Agency Comment Spec In Lab Myron Cruz MD CHEMISTRY ORDERABL ES CERAZEB LEHMANYURYIUM * CBC (with Diff) (06/17/2013 9:11 AM EDT) White Blood Cell 5.2 4.0 - 10.0 x10(3)/mcL CERNER MILLENNIUM Red Blood Cell 3.95 3.93 - 5.22 x10(6)/mcL CERNER MILLENNIUM Hemoglobin 12.4 11.2 - 15.7 gm/dL CERNER MILLENNIUM Hematocrit 36.8 34.0 - 45.0 % CERNER MILLENNIUM Mean Cell Volume 93.2 79.0 - 94.0 fL CERNER MILLENNIUM Mean Cell Hemoglobin 31.4 26.6 - 32.2 pg CERNER MILLENNIUM Mean Cell Hemoglobin Concentration 33.7 32.0 - 36.5 gm/dL CERNER MILLENNIUM Platelet 238 145 - 370 x10(3)/mcL CERNER MILLENNIUM RDW Standard Deviation 42.0 35.0 - 46.0 fL CERNER MILLENNIUM RDW coefficient of variation 12.3 10.9 - 14.4 % CERNER MILLENNIUM Mean Platelet Volume 9.5 9.0 - 12.0 fL CERNER MILLENNIUM Blood specimen (specimen) 06/17/2013 9:11 AM EDT 06/17/2013 9:26 AM EDT Narrative Resulting Agency Comment Spec In Lab Myron Cruz MD HEMATOLOGY ORDERAB LES MAGDALENA LEHMANYURYIUM documented in this encounter Visit Diagnoses Diagnosis Hodgkin's lymphoma Hodgkin's disease, unspecified documented in this encounter Care Teams Broacher Relationship Specialty Start Date End Date Arabella Villarreal MD [address] [facility] [address] [place] [address] PCP - General 09/16/11 documented as of this encounter
--- OUTSIDE RECORDS SUMMARY | 2024-04-07 01:40 | XMS_ITS | Encounter Summary ---
Author Organization [facility] [place] [address] Care Team Providers Care Bread Supervisor Name Role Phone Arabella Villarreal MD Primary Care Provider [phone] Encounter Details Date Type Department Care Team (Latest Contact Info) Description 12/24/2013 5:56 AM EDT - 12/24/2013 11:59 PM EDT Hospital [place] [address] CLINIC, Myron Denney MD [facility] HEMATOLOGY [place] [address] Hodgkin's lymphoma Discharge Disposition: Home Social History [...] Gastroesophageal Reflux 04/02/19 23 vitamin 27 & [id number] 60 mg iron-1 mg tablet Take 1 tablet by mouth daily. 04/02/2022 documented as of this encounter Plan of Treatment Not on file documented as of this encounter Procedures Procedure Name Priority Date/Time Associated Diagnosis Comments CT CHEST ABDOMEN PELVIS W CONTRAST (GENERIC) Routine 12/24/2013 8:09 AM EDT documented in this encounter Results * CT chest, abdomen, & pelvis with contrast (12/24/2013 8:09 AM EDT) Anatomical Region Laterality Modality Computed Tomogra phy 12/24/2013 8:09 AM EDT Narrative 12/24/2013 10:[address] Chest / Abdomen / Pelvis With Contrast Clinical History history of hodgkin's lymphoma ?? r/o recurrence Lymphoma study protocol patient use bi-dimensional measurements DO NOT use RECIST criteria. Comparison CT of the chest, abdomen and pelvis dated October 01, 2012 and March 22, 2013. Technique CT of the chest, abdomen and pelvis following administration of 110 mL of Omnipaque 350 and enteric contrast. ??Coronal and sagittal reformatting obtained. Findings Chest: ??There is a solitary pleural-based right upper lobe nodular opacity (series 3, image 15) and pleural-based nodularity at the lung bases, unchanged. ?? Otherwise, no pulmonary nodules. ??No pleural effusion or pneumothorax. ??The central through segmental airways are patent. ??There is mediastinal lymphadenopathy on a background of residual soft tissue attenuation within the mediastinum, as below. Although not timed to opacify the pulmonary arterial system, no filling defect is seen within the pulmonary trunk, right or left main pulmonary arteries. No pericardial effusion. ?? Abdomen/pelvis: There is unchanged borderline enlargement of the liver which measures 21 cm in greatest craniocaudal dimension. Two subcentimeter hypodensities, one in the right (series 2, image 54) and one in the left hepatic lobe (series 2, image 51), appear unchanged. These are too small to characterize, but likely represent cysts. No additional hepatic lesions are identified. The portal and hepatic veins are patent. No biliary ductal dilatation. The pancreas, spleen, adrenal glands and symmetrically enhancing kidneys appear normal. The partially distended bladder is normal in contour. The uterus and adnexa are unremarkable. ?? No free intraperitoneal air. ??No abnormal areas of bowel wall thickening or evidence of obstruction. No abdominal free fluid. ??There is a trace amount of fluid in the pelvis, likely physiologic. ??No abdominal or pelvic lymphadenopathy. ?? No suspicious osseous abnormalities. ?? The following indicator sites are measured: ? Lesion 1: ??Mediastinal lymphadenopathy. ?? Previous scan (03/22/2013): ??Series 2, image 17, 14 x 25 mm. ?? Current scan: Series 2, image 17, 20 x 9 mm ? Lesion 2: ??Mediastinal lymphadenopathy. ?? Previous scan (03/22/2013): ??Series 2, image 24, 30 x 6 mm. ? Current scan: 30 x 6 mm ? Lesion 3: ??Right paratracheal lymph node. ?? Previous scan (03/22/2013): ??Series 2, image 13, 16 x 16 mm. ?? Current scan: Series 2, image 14, 13 x 12 mm ?? Impression Decreased mediastinal lymphadenopathy, as described above. No new sites of disease identified. ?? Film and interpretation reviewed by the attending Procedure Note Braydon Ha MD - 12/24/[address] Chest / Abdomen / Pelvis With Contrast Clinical History history of hodgkin's lymphoma r/o recurrence Lymphoma study protocol patient use bi-dimensional measurements DO NOT use RECIST criteria. Comparison CT of the chest, abdomen and pelvis dated October 01, [address] of the chest, abdomen and pelvis following administration of 110 mL of Omnipaque 350 and enteric contrast. Coronal and sagittal reformatting obtained. Findings Chest: There is a solitary pleural-based right upper lobe nodular opacity (series 3, image 15) and pleural-based nodularity at the lung bases,unchanged. Otherwise, no pulmonary nodules. No pleural effusion or pneumothorax.The central through segmental airways are patent. There is mediastinal lymphadenopathy on a background of residual soft tissue attenuation withinthe mediastinum, as below. Although not timed to opacify the pulmonaryarterial system, no filling defect is seen within the pulmonary trunk, right orleft main pulmonary arteries. No pericardial effusion. Abdomen/pelvis: There is unchanged borderline enlargement of the liverwhich measures 21 cm in greatest craniocaudal dimension. Two subcentimeter hypodensities, one in the right (series 2, image 54) and one in the left hepatic lobe (series 2, image 51), appear unchanged. These are too smallto characterize, but likely represent cysts. No additional hepatic lesionsare identified. The portal and hepatic veins are patent. No biliary ductal dilatation. The pancreas, spleen, adrenal glands and symmetricallyenhancing kidneys appear normal. The partially distended bladder is normal incontour. The uterus and adnexa are unremarkable. No free intraperitoneal air. No abnormal areas of bowel wall thickeningor evidence of obstruction. No abdominal free fluid. There is a trace amountof fluid in the pelvis, likely physiologic. No abdominal or pelvic lymphadenopathy. No suspicious osseous abnormalities. The following indicator sites are measured: Lesion 1: Mediastinal lymphadenopathy. Previous scan (03/22/2013): Series 2, image 17, 14 x 25 mm. Current scan: Series 2, image 17, 20 x 9 mm Lesion 2: Mediastinal lymphadenopathy. Previous scan (03/22/2013): Series 2, image 24, 30 x 6 mm. Current scan: 30 x 6 mm Lesion 3: Right paratracheal lymph node. Previous scan (03/22/2013): Series 2, image 13, 16 x 16 mm. Current scan: Series 2, image 14, 13 x 12 mm Impression Decreased mediastinal lymphadenopathy, as described above. No new sites of disease identified. Film and interpretation reviewed by the attending Myron Cruz MD IMG CT ORDERABLES documented in this encounter Visit Diagnoses Diagnosis Hodgkin's lymphoma Hodgkin's disease, unspecified documented in this encounter Administered Medications Inactive Administered Medications - up to 3 most recent administrations Medication Order MAR Action Action Date Dose Rate Site iohexol (OMNIPAQUE) 350 mg iodine/mL injection 17,500 mg 17,500 mg (50 mL), Oral, ONCE PRN, 1 dose, Starting on Fri12/24/13 at 0802, Until Fri12/24/13 at 0600, Per Protocol, Routine Given 12/24/2013 6:00 AM EDT 17,500 mg iohexol (OMNIPAQUE) 350 mg iodine/mL injection 38,500 mg 38,500 mg (110 mL), Intravenous, ONCE PRN, 1 dose, Starting on Fri12/24/13 at 0803, Until Fri12/24/13 at 0806, Per Protocol, Routine Given 12/24/2013 8:06 AM EDT 38,500 mg documented in this encounter Care Teams Bread Supervisor Relationship Specialty Start Date End Date Arabella Villarreal MD [address] [place] [address] [address] [facility] [address] [place] [address] PCP - General 09/16/11 documented as of this encounter
--- OUTSIDE RECORDS SUMMARY | 2024-04-07 01:40 | XMS_ITS | Encounter Summary ---
Author Organization [facility] [place] [address] Care Team Providers Care Social Media Content Specialist Name Role Phone Arabella Villarreal MD Primary Care Provider [phone] Encounter Details Date Type Department Care Team (Late st Contact Info) Description 12/10/2013 Telephone Hematology [place] [id number] Myron Cruz MD [facility] [address] [place] [address] Social History Tobacco Use Types Packs/Day Years [...] Telephone Encounter - Olga Espinoza RN - 12/10/2013 4:42 PM EDT RESEARCH NURSE TELEPHONE NOTE [id number]: Phase II Trial of Response-Adapted Therapy Based on Positron Emission Tomography (PET) for Bulky Stage I and Stage II Classical Hodgkin Lymphoma (HL) Date: 12/10/2013 Time: 4:42 PM Reason for call: Follow-up testing (home) Received voicemail from patient, who states that she would like to have CT scanning done now because she is not currently . Return call placed to Chasity, who was notified that she is not duefor a physical or labs at this time, as these were done in August . Discussed with Dr. Cruz; requests that CT of chest, abdomen, pelvis is done now, despite having been due per protocol in August 2013. quality coordinator updated. documented in this encounter Plan of Treatment Not on file documented as of this encounter Visit Diagnoses Diagnosis Hodgkin's lymphoma- Primary Hodgkin's disease, unspecified documented in this encounter Care Teams Social Media Content Specialist Relationship Specialty Start Date End Date Arabella Villarreal MD [address] [place] [address] [place] [address] PCP - General 09/16/11 documented as of this encounter
--- OUTSIDE RECORDS SUMMARY | 2024-04-07 01:40 | XMS_ITS | Encounter Summary ---
Author Organization [facility] [place] [address] Care Team Providers Care Corset Maker Name Role Phone Arabella Villarreal MD Primary Care Provider [phone] Reason for Visit * Reason Comments Follow-up Encounter Details Date Type Department Care Team (Latest Contact Info) Description 03/18/2016 2:00 PM EST Office Visit Hematology [place] [address] Cyndy Alfaro, EDGE RUNNER 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 female being seen for follow-up of [...] Start Date End Date Taking? Authorizing Provider FLUTICASONE PROPIONATE (FLONASE ALLERGY RELIEF NASL) by Nasal route. Yes PROVIDER, HISTORICAL ranitidine (ZANTAC) 150 mg tablet Take 150 mg by mouth daily as needed. Indications: Gastroesophageal Reflux Yes PROVIDER, HISTORICAL vitamin 27 & [id number]-[id number]-WV 60 mg iron-1 mg tablet Take 1 tablet by mouth daily. Yes PROVIDER, HISTORICAL docusate sodium (COLACE) 50 mg Capsule Take by mouth daily. Reported on 03/18/2016 PROVIDER, HISTORICAL aspirin 81 mg Tablet, Delayed Release (E.C.) Take 81 mg by mouth daily. Reported on 03/18/2016 PROVIDER, HISTORICAL Lysine HCl 500 mg Tab Take 500 mg by mouth 2 times daily. Reported on 03/18/2016 Indications: Cold sores PROVIDER, HISTORICAL Allergies: Allergies Allergen Reactions ??? Other [Unclassified Drug] Nausea Only Prefilled saline syringes cause severe nausea--please draw saline flushes from vials or bags only! Interim History: Vidhi Perez returns to clinic today in routine follow-up for her Hodgkin Disease s/p completion of 6 cycles of ABVD chemotherapy on clincal trial CALGB 93505 in March 2012. It has been ~12 months since her last visit. Since that time, she has been quite well. She denies fevers, chills, recurrent infections or intercurrent illnesses. She had just a single cold that she can recall which she treated symptomatically. 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 Her oldest daughter, Talia is in her class this year which took some time to adjust to. Alanna is just over a year and has recently found her feet and enjoys walking and running outdoors. Besides caring for her two active daughters, Vidhi continues to exercise daily walking/running on the treadmill and feels fit. She denies any new lumps/bumps, fevers/chills, night sweats, weight loss. Her only new complaintis bilateral carpal tunnel symptoms of pain, burning and numbness. She has not sought out orthopedic evaluation as of yet though is thinking about it as braces at night are not adequate to manage symp toms. Review of Systems: Hematological and Lymphatic ROS: negative Energy level: good Pain: carpal tunnel as noted above Appetite: good Fevers/chills/sweats: No Bruising/bleeding/melena: No Recent infections: No Nausea/vomiting/diarrhea/constipation: No SOB/GIBSON/chest pain: No Change in adenopathy or other masses: No Unexpected weight loss or gain: No Skin rashes or petechiae: No skin rashes or lesions Other systems: No peripheral neuropathy A 12-pt review of systems was performed and was otherwise negative except for above. Physical Exam: BP 124/65 (Patient Position: Sitting) Pulse 59 Temp 37.2 ??C (99 ??F) (Oral) Resp 16 Ht 168.6 cm (5' 6.38) Wt 81.2 kg (179 lb) SpO2 100% BMI 28.56 kg/m2 Gen: well appearing, well developed, well nourished 35 y.o. woman in no acute distress. HEENT: [...] for VIDHI PEREZ ( ) as of 03/18/2016 14:38 Ref. Range 03/18/2016 13:23 WBC Latest Ref Range: 4.0 - 9.5 x10(3)/mcL 6.6 RBC Latest Ref Range: 4.00 - 5.21 x10(6)/mcL 3.87 (L) Hemoglobin Latest Ref Range: 11.7 - 15.5 gm/dL 12.0 Hematocrit Latest Ref Range: 35.7 - 45.8 % 35.1 (L) MCV Latest Ref Range: 82.6 - 94.4 fL 90.7 MCH Latest Ref Range: 27.1 - 32.0 pg 31.0 MCHC Latest Ref Range: 31.7 - 35.0 gm/dL 34.2 RDWSD Latest Ref Range: 37.0 - 46.0 fL 39.4 RDWCV Latest Ref Range: 11.5 - 14.1 % 11.9 Platelets Latest Ref Range: 145 - 357 x10(3)/mcL 278 MPV Latest Ref Range: 7.6 - 12.9 fL 9.5 nRBC % Auto Latest Units: % 0.0 nRBC Abs Auto Latest Ref Range: 0.000 - 0.000 x10(3)/mcL 0.000 Neutr Abs (ANC) Latest Ref Range: 1.70 - 6.10 x10(3)/mcL 4.96 Neutrophils % Latest Units: % 75.7 Immature Gran % Latest Units: % 0.30 Lymphocytes % Latest Units: % 17.9 Monocytes % Latest Units: % 4.0 Eosinophils % Latest Units: % 1.2 Basophils % Latest Units: % 0.9 Maryann Gran Abs Latest Ref Range: 0.00 - 0.04 x10(3)/mcL 0.02 Lymphocytes Abs Latest Ref Range: 0.9 - 3.2 x10(3)/mcL 1.2 Monocyte Abs Latest Ref Range: 0.3 - 0.9 x10(3)/mcL 0.3 Eosinophils Abs Latest Ref Range: 0.0 - 0.4 x10(3)/mcL 0.1 Basophils Abs Latest Ref Range: 0.0 - 0.1 x10(3)/mcL 0.1 Sed Rate Latest Ref Range: 0 - 20 mm/hr 7 Sodium Latest Ref Range: 135 - 145 mmol/L 142 Potassium Latest Ref Range: 3.5 - 5.0 mmol/L 3.9 Chloride Latest Ref Range: 98 - 107 mmol/L 103 CO2 Latest Ref Range: 22 - 31 mmol/L 26 Anion Gap Latest Ref Range: 5 - 15 mmol/L 13 BUN Latest Ref Range: 8 - 18 mg/dL 17 Creatinine Latest Ref Range: 0.70 - 1.20 mg/dL 0.75 Estimated GFR Latest Ref Range: >=60 >60 Glucose Lvl Latest Ref Range: 65 - 199 mg/dL 96 Calcium Latest Ref Range: 8.5 - 10.5 mg/dL 9.3 Total Protein Latest Ref Range: 6.1 - 8.0 gm/dL 6.8 Albumin Latest Ref Range: 3.2 - 5.2 gm/dL 4.5 Total Bilirubin Latest Ref Range: 0.2 - 1.3 mg/dL 0.2 Bili, Direct Latest Ref Range: 0.0 - 0.3 mg/dL 0.1 Alk Phos Latest Ref Range: 40 - 104 unit/L 40 AST Latest Ref Range: 0 - 30 unit/L 18 ALT Latest Ref Range: 0 - 30 unit/L 14 Radiographic Data: No new images reviewed today Assessment/Plan: 35 y.o. now s/p 6 cycles of ABVD for stage IIA HL, ABVD on study PET2 negative central review, lastdose 03/19/2012. PET showed CR after all therapy. No clinical or laboratory evidence of disease progression. No residual effects of chemotherapy identified. RTC in 12 months though Vidhi was reminded that we remain available in the interim should questions/concerns arise. Routine healthcare and age-appropriate health screenings will continue under the direction of Dr. Villarreal. Cyndy Alfaro, MSN, EDGE [employer]NER Nurse Practitioner Section of Hematology/Oncology Cc: Arabella Villarreal MD documented in this encounter Plan of Treatment Not on file documented as of this encounter Results * Sedimentation rate (03/17/2017 11:57 AM EST) Sedimentation Rate Automated 7 0 - 20 mm/hr [facility] Blood specimen (specimen) 03/17/2017 11:57 AM EST 03/17/2017 12:06 PM EST Narrative Resulting Agency Comment Spec In Lab Austin Lauren MD HEMATOLOGY ORDER CAMI [facility] [place] [address] * Comprehensive metabolic panel (non-fasting) (03/17/2017 11:57 AM EST) Glucose 98 65 - 199 mg/dL [facility] Comment:Diabetes: >=200 mg/d L plus symptoms Blood Urea Nitrogen 16 8 - 18 mg/dL [facility] Creatinine 0.74 0.70 - 1.20 mg/dL [facility] Sodium 140 135 - 145 mmol/L [facility] Potassium 4.0 3.5 - 5.0 mmol/L [facility] Comment: Please note: ??Patients with WBC >100,000 may have falsely elevated Potassium levels. ??For accurate Potassium quantification in these patients send serum separator tube (gold top) for subsequent determinations. ??Contact the Clinical Chemistry Laboratory if there are any questions. Chloride 103 98 - 107 mmol/L [facility] Carbon Dioxide 27 22 - 31 mmol/L [facility] Anion Gap 10 5 - 15 mmol/L [facility] Calcium 9.2 8.5 - 10.5 mg/dL [facility] Protein, Total 6.5 6.1 - 8.0 gm/dL [facility] Albumin 4.2 3.2 - 5.2 gm/dL [facility] Aspartate Aminotransferase 16 0 - 30 unit/L [facility] Alanine Aminotransferase 16 0 - 30 unit/L [facility] Alkaline Phosphatase 41 40 - 104 unit/L [facility] Bilirubin, Total 0.2 0.2 - 1.3 mg/dL [facility] Est Glomerular Filtration Rate >60 >=60 [facility] Comment: The reported eGFR should be multiplied by 1.2 for patients. The MDRD is not an appropriate measure of renal function for patients with body mass extremes or in patients with acute kidney failure. 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
--- OUTSIDE RECORDS SUMMARY | 2024-04-07 01:40 | XMS_ITS | Encounter Summary ---
Author Organization [facility] [place] [address] Care Team Providers Care Nurse Practitioner Manager Name Role Phone Arabella Villarreal MD Primary Care Provider [phone] Reason for Visit * Reason Comments Schedule Office Case Encounter Details Date Type Department Care Team (Latest Contact Info) Description 03/23/2015 11:30 AM EST Office Visit Hematology [place] [address] Myron Cruz MD [facility] [address] HEMATOLOGY [place] [address] Cyndy Alfaro, GURWINDER [facility] [address] HEMATOLOGY [place] [address] Verona Alejandro DO 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 [...] Sign Reading Time Taken Comments Blood Pressure 122/69 03/23/2015 11:45 AM EST Pulse 44 03/23/2015 11:45 AM EST Temperature 36.2 ??C (97.2 ??F) 03/23/2015 11:[address] Respiratory Rate 16 03/23/2015 11:45 AM EST Oxygen Saturation 100% 03/23/2015 11:45 AM EST Inhaled Oxygen Concentration - - Weight 86 kg (189 lb 9.5 oz) 03/23/2015 11:45 AM EST Height 169 cm (5' 6.54) 03/23/2015 11:45 AM EST Body Mass Index 30.11 03/23/2015 11:45 AM EST documented in this encounter Progress Notes * Myron Cruz MD - 03/29/2015 3:37 PM EST I have seen the patient and reviewed the fellow's above history and I agree with the details as written. The assessment and plan were formulated in discussion with me and I agree with them as documented. Myron Cruz MD [employer] Consultantsenior process engineer Section of Hematology/Oncology [facility] * Myron Cruz MD - 03/23/2015 12:42 PM EST I have seen the patient and reviewed the fellow's above history and I agree with the details as written. The assessment and plan were formulated in discussion with me and I agree with them as documented. #HL in remission, 3 years post chemo -f/u as per CALGB protocol Myron Cruz MD [employer]force Management Consultantsenior process engineer Section of Hematology/Oncology [facility] * Verona Alejandro DO - 03/23/2015 11:16 AM EST HEMATOLOGY FOLLOW UP NOTE Chasity Gallo is a 34 y.o. female being seen [...] is felt to be less likely. Medications: Medications 03/23/15 1148 Medication Sig Taking? docusate sodium (COLACE) 50 mg Capsule Take by mouth daily. Yes Lysine HCl 500 mg Tab Take 500 mg by mouth 2 times daily. Indications: Cold sores Yes ranitidine (ZANTAC) 150 mg tablet Take 150 mg by mouth daily as needed. Indications: Gastroesophageal Reflux Yes vitamin 27 & [id number] 60 mg iron-1 mg tablet Take 1 tablet by mouth daily. Yes aspirin 81 mg Tablet, Delayed Release (E.C.) Take 81 mg by mouth daily. Allergies: Allergies Allergen Reactions ??? Other [Unclassified Drug] Nausea Only Prefilled saline syringes cause severe nausea--please draw saline flushes from vials or bags only! Interim History: Chasity Gallo returns to clinic today in routine follow-up for her Hodgkin Disease s/p completion of 6 cycles of ABVD chemotherapy on clincal trial CALGB 23444 in March 2012. It has been 6 months since her last visit and she delivered a healthy baby girl, Alanna, in October. She returned to work the beginning of the year and that is going well. She exercises on the treadmill 6 days/week. She denies any new lumps/bumps, fevers/chills, night sweats, weight loss. Review of Systems: Hematological and Lymphatic ROS: [...] negative except for above. Physical Exam: BP 122/69 mmHg Pulse 44 Temp(Src) 36.2 ??C (97.2 ??F) (Temporal) Resp 16 Ht 169 cm (5' 6.53) Wt 86 kg (189 lb 9.5 oz) BMI 30.11 kg/m2 SpO2 100% Gen: well appearing, well developed, well nourished 34 y.o. woman in no acute distress. HEENT: [...] tenderness Laboratory: Recent Results (from the past 24 hour(s)) Comprehensive metabolic panel (non-fasting) Result Value Ref Range Glucose Lvl 84 65 - 199 mg/dL BUN 19 (H) 8 - 18 mg/dL Creatinine 0.75 0.70 - 1.20 mg/dL Sodium 139 135 - 145 mmol/L Potassium 4.2 3.5 - 5.0 mmol/L Chloride 102 98 - 107 mmol/L CO2 26 22 - 31 mmol/L Anion Gap 11 5 - 15 mmol/L Calcium 9.1 8.5 - 10.5 mg/dL Total Protein 6.7 6.1 - 8.0 gm/dL Albumin 4.3 3.2 - 5.2 gm/dL AST 19 0 - 30 unit/L ALT 16 0 - 30 unit/L Alk Phos 52 40 - 104 unit/L Total Bilirubin 0.4 0.2 - 1.3 mg/dL Bili, Direct 0.1 0.0 - 0.3 mg/dL Estimated GFR >60 >=60 Sedimentation rate Result Value Ref Range Sed Rate 5 0 - 20 mm/hr Hemogram Result Value Ref Range WBC 3.7 (L) 4.0 - 10.0 x10(3)/mcL RBC 4.17 3.93 - 5.22 x10(6)/mcL Hemoglobin 12.6 11.2 - 15.7 gm/dL Hematocrit 36.7 34.0 - 45.0 % MCV 88.0 79.0 - 94.0 fL MCH 30.2 26.6 - 32.2 pg MCHC 34.3 32.0 - 36.5 gm/dL Platelets 225 145 - 370 x10(3)/mcL RDWSD 38.0 35.0 - 46.0 fL RDWCV 11.9 10.9 - 14.4 % MPV 9.2 9.0 - 12.0 fL Differential, Automated Result Value Ref Range Neutrophils % 59.1 % Neutr Abs (ANC) 2.18 1.50 - 6.30 x10(3)/mcL Lymphocytes % 28.3 % Lymphocytes Abs 1.0 1.0 - 3.6 x10(3)/mcL Monocytes % 8.2 % Monocyte Abs 0.3 0.2 - 1.0 x10(3)/mcL Eosinophils % 3.3 % Eosinophils Abs 0.1 0.0 - 0.5 x10(3)/mcL Basophils % 1.1 % Basophils Abs 0.0 0.0 - 0.2 x10(3)/mcL Immature Gran % 0.00 % Maryann Gran Abs 0.00 0.00 - 0.05 x10(3)/mcL Radiographic Data: CT CAP done today: FINDINGS: ? Chest Pulmonary parenchyma and airways: No new findings. Pleura: No pleural effusion Cardiovascular: Unchanged. No pericardial effusion Mediastinum and patrica: No new or enlarging mediastinal or hilar lymph nodes. ?? Lesion 1: Mediastinal lymphadenopathy Previous scan 12/24/2013: series 2 image 17: 20 x 9 mm. Now: Series 2 image 16: 15 x 9 mm. ?? Lesion 3: Mediastinal lymphadenopathy Previous scan 12/24/2013: series 2 image 24:29 x 6 mm Now: Series 2 image 24: 28 x 5 mm. ?? Lesion 3: Right paratracheal lymph node lymph node. Previous scan 12/24/2013 series 2 image 14: 13 x 12 mm. Now: Series 2 image 13: 10 x 8 mm. ?? Chest wall: New bilateral nodular and serpiginous soft tissue throughout both breasts. ? Abdomen/pelvis Liver: Unchanged subcentimeter hepatic hypodensities, statistically most likely cysts. No new or enlarging hepatic lesions. Bile ducts: Normal caliber Gallbladder: Unremarkable. Pancreas: Normal Spleen: Normal Adrenals: Normal Kidneys and urinary tract: Normal symmetric contrast enhancement. No collecting system or ureteral dilatation. Unremarkable urinary bladder. ?? Lymph nodes: No enlarged abdominal or pelvic lymph nodes Bowel: Normal caliber, no wall thickening Peritoneum and mesentery: No ascites or free air. No fluid collection Reproductive organs: Not significantly different, within limits of CT. Osseous structures: No suspicious lesions. ?? IMPRESSION: Previous indicator lesions smaller. No new or enlarging lymph nodes or other interval suspicious findings. ?? New bilateral nodular and serpiginous soft tissue throughout both breasts appears compatible with dense breast fibroglandular tissue, likely reflects breast feeding status. ?? Assessment/Plan: 34 y.o. now s/p 6 cycles of ABVD for stage IIA HL, ABVD on study PET2 negative central review, lastdose 03/19/2012. PET showed CR after all therapy. No clinical or laboratory evidence of disease progression. No residual effects of chemotherapy identified. CT from today shows no active lymphoma. No clinical or laboratory evidence of disease progression. RTC in 6 months per protocol though Chasity was reminded that we remain available in the interim should questions/concerns arise. 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
--- OUTSIDE RECORDS SUMMARY | 2024-04-07 01:41 | XMS_ITS | Encounter Summary ---
[place] [address] Care Team Providers Care Wood Carving Machine Operator Name Role Phone Arabella Villarreal MD Primary Care Provider [phone] Encounter Details Date Type Department Care Team (Latest Contact Info) Description 04/10/2012 2:08 PM EST - 04/10/2012 11:59 PM [facility] Hospital [place] [id number] Hodgkin's lymphoma Social History Tobacco Use Types [...] Date End Date Lysine HCl 500 mg TabIndications:Col d sores Take 500 mg by mouth 2 times daily. Reported on 03/18/2016 Indications: Cold sores prochlorperazine (COMPAZINE) 5 mg tablet take 1 tablet by mouth every 6 hours if needed for nausea 30 tablet 2 02/26/2012 07/24/2012 fluconazole (DIFLUCAN) 150 mg tablet Take as directed. 4 tablet 0 02/20/2012 07/24/2012 loratadine (CLARITIN) 10 mg tabletIndications:S easonal allergies Take 10 mg by mouth daily. Indications: Seasonal allergies 11/20/2011 06/17/2013 lidocaine-prilocain e (EMLA) creamIndications:Ho dgkin's disease Apply topically. Apply liberally to mediport site 30-60 minutes prior to lab appointment, cover with dressing as instructed. 30 g 2 11/15/2011 07/24/2012 LORazepam (ATIVAN) 0.5 mg tabletIndications:H odgkin's lymphoma Take 1 tablet by mouth every 6 hours as needed (Nausea). 50 tablet 3 11/13/2011 07/24/2012 scopolamine (TRANSDERM-SCOP) 1.5 mgIndications:Hodgtamanna in's lymphoma Place 1 patch onto the skin every 72 hours. Use as needed for nausea not relieved by Zofran or Compazine. 10 patch 12 10/22/2011 07/24/2012 ranitidine (ZANTAC) 150 mg tabletIndications:g astroesophageal reflux disease Take 150 mg by mouth daily as needed. Indications: Gastroesophageal Reflux 04/02/19 23 vitamin 27 & [id number]-lhgh-RB 60 mg iron-1 mg tablet Take 1 tablet by mouth daily. 04/02/2022 documented as of this encounter Plan of Treatment Not on file documented as of this encounter Procedures Procedure Name Priority Date/Time Associated Diagnosis Comments NM PET CT SKULL BASE TO MID-THIGH ([facility]) Routine 04/10/2012 3:51 PM EST Hodgkin's lymphoma documented in this encounter Results * PET-CT skull base to mid thigh (04/10/2012 3:51 PM EST) Anatomical Region Laterality Modality Other 04/10/2012 3:51 PM EST Narrative 04/10/2012 4:57 PM EST Examination PET/CT STANDARD (Skull base to Mid-thigh) Technique Procedure: Following IV injection of 57-ddfolp-4-deoxyglucose (FDG) and a standard uptake period, a non-contrast CT scan followed by a PET scan were acquired from the base of the skull to mid-thighs. The non-contrast CT was used for anatomic localization and photon attenuation correction of the PET scan. Blood Glucose Level (mg/dL):82 FDG Dose:13.97mCi (0.15 mCi/kg to maximum of 18 mCi). Pre-medication: None Clinical History Restaging, hodgkin's lymphoma s/p 6 cycles ABVD Comparison PET-CT from 12/06/2011. Head/Neck Normal metabolic activity throughout the soft tissues of the head and neck. Chest Right paratracheal and prevascular mediastinal lymph nodes are not FDG avid and decreased in size from the prior. Normal metabolic activity in all soft tissues of the chest. Small opacities at the left lung base adjacent to the diaphragm are ametabolic, not seen previously, and likely represent focal atelectasis or inflammation. Abdomen/Pelvis Mildly increased activity in the spleen, but otherwise normal metabolic activity throughout the soft tissues of the abdomen and pelvis. Skeleton/Extremities Slightly increased activity throughout the skeleton, with no hypermetabolic foci in the axial or proximal appendicular skeleton. Impression 1. No active lymphoma. 2. Decreased mediastinal adenopathy with no evidence of griselda disease. 3. Slightly increased activity in the skeleton and spleen most likely treatment related. ?? 4. Left lung base focal atelectasis versus inflammatory disease. Thank you for referring this patient to the [facility] PET Center Film and interpretation reviewed by the attending Procedure Note Nakul Kta MD - 04/10/2012 Examination PET/CT STANDARD (Skull base to Mid-thigh) Technique Procedure: Following IV injection of 92-emgszg-3-deoxyglucose (FDG) and a standard uptake period, a non-contrast CT scan followed by a PET scan were acquired from the base of the skull to mid-thighs. The non-contrast CT wasused for anatomic localization and photon attenuation correction of the PETscan. Blood Glucose Level (mg/dL):82 FDG Dose:13.97mCi (0.15 mCi/kg to maximum of 18 mCi). Pre-medication: None Clinical History Restaging, hodgkin's lymphoma s/p 6 cycles ABVD Comparison PET-CT from 12/06/2011. Head/Neck Normal metabolic activity throughout the soft tissues of the head andneck. Chest Right paratracheal and prevascular mediastinal lymph nodes are not FDGavid and decreased in size from the prior. Normal metabolic activity in all softtissues of the chest. Small opacities at the left lung base adjacent to thediaphragm are ametabolic, not seen previously, and likely represent focalatelectasis or inflammation. Abdomen/Pelvis Mildly increased activity in the spleen, but otherwise normal metabolic activity throughout the soft tissues of the abdomen and pelvis. Skeleton/Extremities Slightly increased activity throughout the skeleton, with nohypermetabolic foci in the axial or proximal appendicular skeleton. Impression 1. No active lymphoma. 2. Decreased mediastinal adenopathy with no evidence of griselda disease. 3. Slightly increased activity in the skeleton and spleen most likelytreatment related. 4. Left lung base focal atelectasis versus inflammatory disease. Thank you for referring this patient to the [facility] PET Center Film and interpretation reviewed by the attending Myron Cruz MD IMG PET ORDERABLES documented in this encounter Visit Diagnoses Diagnosis Hodgkin's lymphoma Hodgkin's disease, unspecified documented in this encounter Care Teams Wood Carving Machine Operator Relationship Specialty Start Date End Date Arabella Villarreal MD [address] [place] [address] PCP - General 09/16/11 documented as of this encounter
--- OUTSIDE RECORDS SUMMARY | 2024-04-07 01:41 | XMS_ITS | Encounter Summary ---
Author Organization [facility] [place] [address] Care Team Providers Care [employer] Teacher Name Role Phone Arabella Villarreal MD Primary Care Provider [phone] Encounter Details Date Type Department Care Team (Late st Contact Info) Description 04/03/2012 Orders Only Hematology [place] [address] Pamela Richmond MD [facility] DR HEMATOLOGY [place] [address] Hodgkin's lymphoma (Primary Dx) Social History Tobacco [...] r Schedule Miscellaneous Lab request Lab Routine Hodgkin's lymphoma Expected: 04/09/2012 (Approximate), Expires: 04/16/2012 documented as of this encounter Visit Diagnoses Diagnosis Hodgkin's lymphoma- Primary Hodgkin's disease, unspecified documented in this encounter Care Teams [employer] Teacher Relationship Specialty Start Date End Date Dobbertin, Arabella, MD [address] [place] [address] PCP - General 09/16/11 documented as of this encounter
--- OUTSIDE RECORDS SUMMARY | 2024-04-07 01:41 | XMS_ITS | Encounter Summary ---
[place] [address] Care Team Providers Care Physician Gynecologist Name Role Phone Arabella Villarreal MD Primary Care Provider [phone] Encounter Details Date Type Department Care Team (Late st Contact Info) Description 04/10/2012 11:30 AM EST Clinical Support [facility] [phone] Social History Tobacco Use Types Packs/Day Years [...] on filedocumented in this encounter Care Teams Physician Gynecologist Relationship Specialty Start Date End Date Arabella Villarreal MD [address] [place], [place] [id number] PCP - General 09/16/11 documented as of this encounter
--- OUTSIDE RECORDS SUMMARY | 2024-04-07 01:41 | XMS_ITS | Encounter Summary ---
Author Organization [facility] [place] [address] Care Team Providers Care Straightedge Worker Name Role Phone Arabella Villarreal MD Primary Care Provider [phone] Encounter Details Date Type Department Care Team (Late st Contact Info) Description 03/25/2012 Telephone Hematology [place] [phone] Myron Cruz MD [facility] [address] HEMATOLOGY [place] [address] Social History Tobacco Use Types Packs/Day Years [...] Telephone Encounter - Olga Espinoza RN - 03/25/2012 12:34 PM EST RESEARCH NURSE TELEPHONE NOTE [id number]: Phase II Trial of Response-Adapted Therapy Based on Positron Emission Tomography (PET) for Bulky Stage I and Stage II Classical Hodgkin Lymphoma (HL) Date: 03/25/2012 Time: 12:34 PM Reason for call: Symptom management Received voicemail from patient stating that her loose stools have recurred, and that I haven't felt well in the past three weeks. Abdominal cramping present at times with symptoms of urgency. Chasity states that these symptoms have not kept her from working, but are more irritating than anything else. Eating her normal diet, continues to take Zantac daily. Denies any fevers or recent antibi otic treatment. Also states that she feels really, really tired at night and I feel like I should be better by this point. Reports that her recent cold symptoms are just about gone. 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 Discussed with Cyndy Alfaro APRN. Education Provided: Chasity advised that she may try anti-diarrheal medication, which she has tried on an intermittent basis recently, or eat more stool-bulking foods, such as bananas. If symptoms are not improving in the next 48 hours, advised that she consider PCP evaluation. Plan: 1. Pt will continue on study [id number] per protocol. 2. Patient to call if she is not improving in 24-48 hours and decides to seek evaluation at PCP. Patient verbalizes understanding of, and agreement with, plan. Advised to contact this office for any questions/concerns, as well as for any new or worsening symptoms. documented in this encounter Plan of Treatment Not on file documented as of this encounter Visit Diagnoses Not on filedocumented in this encounter Care Teams Straightedge Worker Relationship Specialty Start Date End Date Arabella Villarreal MD [address] [place] [address] PCP - General 09/16/11 documented as of this encounter
--- OUTSIDE RECORDS SUMMARY | 2024-04-07 01:41 | XMS_ITS | Encounter Summary ---
Author Organization [facility] [place] [address] Care Team Providers Care Pharmacist Critical Care Name Role Phone Arabella Villarreal MD Primary Care Provider [phone] Reason for Visit * Reason Comments Lymphoma Encounter Details Date Type Department Care Team (Late st Contact Info) Description 10/01/2012 9:30 AM EDT Follow-Up Hematology [place] [id number] CLINIC, Cyndy Betancur, [facility] [place] [address] HD (Hodgkin's disease) (Primary Dx) Discharge Disposition: Home Social History Tobacco Use [...] Sign Reading Time Taken Comments Blood Pressure 111/66 10/01/2012 9:19 AM EDT Pulse 52 10/01/2012 9:19 AM EDT Temperature 36.4 ??C (97.5 ??F) 10/01/2012 9:19 AM ED T Respiratory Rate 16 10/01/2012 9:19 AM EDT Oxygen Saturation 100% 10/01/2012 9:19 AM EDT Inhaled Oxygen Concentration - - Weight 86.9 kg (191 lb 9.3 oz) 10/01/2012 9:19 A M EDT Height 169 cm (5' 6.54) 10/01/2012 9:19 AM EDT Body Mass Index 30.43 10/01/2012 9:19 AM EDT documented in this encounter Progress Notes * Cyndy Alfaro, PLATE STACKER HAND - 10/01/2012 9:37 AM EDT HEMATOLOGY FOLLOW UP NOTE Chasity Gallo is a 32 y.o. female being seen for follow-up of Hodgkin's lymphoma. Patient Active Problem List Diagnoses ??? Hodgkin's lymphoma STAGE IIA. Unfavorable. ESR [...] Start Date End Date Taking? Authorizing Provider loratadine (CLARITIN) 10 mg tablet Take 10 mg by mouth daily. Indications: Seasonal allergies 11/20/11 Yes System, Pcp Not In Lysine HCl 500 mg Tab Take 500 mg by mouth 2 times daily. Indications: Cold sores Yes Troy Kednall MD ranitidine (ZANTAC) 150 mg tablet Take 150 mg by mouth daily as needed. Indications: Gastroesophageal Reflux Yes Troy Kendall MD vitamin 27 & [id number] 60 mg iron-1 mg tablet Take 1 tablet by mouth daily. Yes Troy Kendall MD Allergies: Allergies Allergen Reactions ??? Other (Unclassified Drug) Nausea Only Prefilled saline syringes cause severe nausea--please draw saline flushes from vials or bags only! Interim History: Chasity Gallo returns to clinic today in routine follow-up for her Hodgkin Disease s/p completion of 4 cycles of ABVD chemotherapy on clincal trial CALGB 17014 in March 2012. Since her last visit ~ 3 months ago, Chasity reports feeling quite well. She denies fevers, chills, infections or intercurrent illnesses. No drenching sweats, unintentional weight los or palpable adenopathy. She describes good energy and has been busy at home and with her young daughter. She has been exercising daily walking and/or jogging a 2 mile loop around her house pushing her daughter in the jog stroller. In addition, she is following a Weight Watcher's diet resulting an intentional weight loss of approximately 13 pounds. She denies any residual effects of therapy or new health-related concerns. Review of Systems: Hematological and Lymphatic ROS: negative Energy level: good Pain: No Appetite: good, watching diet using Weight Watchers guidelines for intentional weight loss Fevers/chills/sweats: No Bruising/bleeding/melena: No Recent infections: No [...] negative except for above. Physical Exam: BP 111/66 Pulse 52 Temp(Src) 36.4 ??C (97.5 ??F) (Oral) Resp 16 Ht 169 cm (5' 6.54) Wt 86.9 kg (191 lb 9.3 oz) BMI 30.43 kg/m2 SpO2 100% Gen: well appearing, well developed, well nourished 32-year-old woman in no acute distress. HEENT: PERRL, no oral lesions, mucus membranes moist without ulcerations, hyperemia, exudative plaques or lesions. Short hair cut. LN survey: no palpable cervical or supraclavicular or axillary adenopathy Chest: clear to ausculatation bilaterally; well-healed mediport removal site. No drainage. CV: S1S2, RRR, no murmurs, rubs, gallops Abd: soft, flat, non-tender, no palpable masses or hepatosplenomegaly. NABS. Ext: no edema Neuro: grossly intact MS: no bony tenderness Laboratory: Recent Results (from the past 24 hour(s)) CBC (WITH DIFF) Component Value Range WBC 3.4 (*) 4.0 - 10.0 x10(3)/mcL RBC 3.70 (*) 3.93 - 5.22 x10(6)/mcL Hemoglobin 11.2 11.2 - 15.7 gm/dL Hematocrit 33.6 (*) 34.0 - 45.0 % MCV 90.8 79.0 - 94.0 fL MCH 30.3 26.6 - 32.2 pg MCHC 33.3 32.0 - 36.5 gm/dL Platelets 226 145 - 370 x10(3)/mcL RDWSD 41.6 35.0 - 46.0 fL RDWCV 12.6 10.9 - 14.4 % MPV 9.0 9.0 - 12.0 fL COMPREHENSIVE METABOLIC PANEL (NON-FASTING) Component Value Range Glucose Lvl 64 60 - 199 mg/dL BUN 13 8 - 18 mg/dL Creatinine 0.74 0.70 - 1.20 mg/dL Sodium 140 135 - 145 mmol/L Potassium 3.8 3.5 - 5.0 mmol/L Chloride 109 (*) 98 - 107 mmol/L CO2 23 22 - 31 mmol/L Anion Gap 8 5 - 15 mmol/L Calcium 8.8 8.5 - 10.5 mg/dL Total Protein 6.5 6.4 - 8.3 gm/dL Albumin 4.6 3.2 - 5.2 gm/dL AST 20 0 - 30 unit/L ALT 14 0 - 30 unit/L Alk Phos 33 (*) 40 - 104 unit/L Total Bilirubin 0.5 0.2 - 1.3 mg/dL Bili, Direct 0.2 0.0 - 0.3 mg/dL Estimated GFR >60 >=60 SEDIMENTATION RATE Component Value Range Sed Rate 8 0 - 20 mm/hr DIFFERENTIAL, AUTOMATED Component Value Range Neutrophils % 68.7 34.0 - 71.0 % Neutr Abs (ANC) 2.30 1.50 - 6.30 x10(3)/mcL Lymphocytes % 16.7 (*) 19.0 - 53.0 % Lymphocytes Abs 0.6 (*) 1.0 - 3.6 x10(3)/mcL Monocytes % 10.1 4.0 - 13.0 % Monocyte Abs 0.3 0.2 - 1.0 x10(3)/mcL Eosinophils % 3.3 0.0 - 7.0 % Eosinophils Abs 0.1 0.0 - 0.5 x10(3)/mcL Basophils % 1.2 0.0 - 2.0 % Basophils Abs 0.0 0.0 - 0.2 x10(3)/mcL Immature Gran % 0.00 0.00 - 0.66 % Maryann Gran Abs 0.00 0.00 - 0.05 x10(3)/mcL Radiographic: I personally reviewed the CT scans of the chest, abdomen and pelvis obtained earlier today. The images and interpretation were shared with the patient at the time of this visit. The scan shows the following: Chest: No pleural effusions are seen. The interstitial changes mentioned on the previous exam of the right lower lung shown an interval decrease since the previous exam. The there no intrapulmonary nodules. There is an overall decrease in mediastinal lymphadenopathy as detailed below. No axillary lymphadenopathy is seen. There is no cardiomegaly or pericardial effusion. The heart and great vessels are unremarkable. Abdomen/pelvis: There is mild hepatomegaly, with the liver measuring 20 centimeters in craniocaudaldimension. This is stable since the previous exam. There are multiple hypodensities seen in liver parenchyma which are unchanged from the previous study and likely represent small cysts. There is no i ntrahepatic ductal dilatation. The portal and hepatic veins are patent. The gallbladder is unremarkable. The spleen, adrenal glands, and pancreas are unremarkable. There is a subcentimeter hypodensity in the lower pole of the left kidney which is too small to characterize, but is unchanged in size since the previous study. A similar hypodensity is seen within the upper pole of the right kidney and is also unchanged. Small bowel and colon are unremarkable. No intra-abdominal lymphadenopathy is seen. The bladder, uterus and adnexa are unremarkable. There is no free fluid orfree air seen in the abdominal cavity. No focal lytic or osseous lesions are seen in the visualizedaxial spine. Lesion 1: Mediastinal lymphadenopathy Previous study: S2, I 19, 44 x 21 millimeters Current study: S2, I 16, 32 x 16 millimeters Lesion 2: Mediastinal lymphadenopathy Previous study: S2, I 26, 34 x 11 millimeters Current study: S2, I 23, 32 x 9 millimeters Lesion 3: Right paratracheal lymph node Previous study S2, I 15, 19 x 26 millimeters Current study: S2, I 12, 17 x 21 millimeters. Impression 1. Decreased mediastinal lymphadenopathy as detailed above. 2. No new lymphadenopathy is appreciated. Assessment/Plan: 32 year old now s/p 6 cycles of ABVD for stage IIA HL, ABVD on study PET2 negativecentral review, and s/p 6 cycles of ABVD, last dose 03/19/2012. PET showed CR after all therapy. Now~7 months post treatment. No clinical, laboratory or radiographic evidence of disease progression. No residual effects of chemotherapy identified. I reviewed protocol specific restaging with her and f/u as mandated by the protocol. RTC on 12/31/12 for follow-up. Chasity is aware that we remain available in the interim should questions/concerns arise. Total time spent with patient: 30 minutes Time spent in counseling and coordination of care: 20 minutes Cyndy Alfaro, MSN, PLATE STACKER HAND Nurse Practitioner Section of Hematology/Oncology [facility] Cc: Arabella Villarreal MD documented in this encounter Plan of Treatment Not on file documented as of this encounter Visit Diagnoses Diagnosis HD (Hodgkin's disease)- Primary Hodgkin's disease, unspecified documented in this encounter Care Teams Pharmacist Critical Care Relationship Specialty Start Date End Date Arabella Villarreal MD [address] [place] [address] PCP - General 09/16/11 documented as of this encounter
--- OUTSIDE RECORDS SUMMARY | 2024-04-07 01:41 | XMS_ITS | Encounter Summary ---
Author Organization [facility] [place] [address] Care Team Providers Care Quarrying Specialist Name Role Phone Arabella Villarreal MD Primary Care Provider [phone] Encounter Details Date Type Department Care Team (Late st Contact Info) Description 03/05/2012 External Results Hematology [place] [address] Myron Cruz MD [facility] [address] [place] [address] Social History Tobacco Use Types Packs/Day Years [...] on filedocumented in this encounter Care Teams Quarrying Specialist Relationship Specialty Start Date End Date Arabella Villarreal MD [address] [place], [place] [id number] PCP - General 09/16/11 documented as of this encounter
--- OUTSIDE RECORDS SUMMARY | 2024-04-07 01:41 | XMS_ITS | Encounter Summary ---
Author Organization [facility] [place] [address] Care Team Providers Care Microwave Remote Sensing Scientist Name Role Phone Arabella Villarreal MD Primary Care Provider [phone] Encounter Details Date Type Department Care Team (Latest Contact Info) Description 10/01/2012 7:25 AM EDT - 10/01/2012 11:59 PM EDT Hospital Encounter Hematology [place] [address] Myron Cruz MD [facility] [address] [place] [address] Hodgkin's lymphoma Discharge Disposition: Home Social History [...] Gastroesophageal Reflux 04/02/19 23 vitamin 27 & [id number] 60 mg iron-1 mg tablet Take 1 tablet by mouth daily. 04/02/2022 documented as of this encounter Plan of Treatment Not on file documented as of this encounter Procedures Procedure Name Priority Date/Time Associated Diagnosis Comments DIFFERENTIAL, AUTOMATED STAT 10/01/2012 7:29 AM EDT SEDIMENTATION RATE STAT 10/01/2012 7: 29 AM EDT Hodgkin's lymphoma CBC (WITH DIFF) STAT 10/01/2012 7:29 AM EDT Hodgkin's lymphoma COMPREHENSIVE METABOLIC PANEL STAT 10/01/2012 7:29 AM EDT Hodgkin's lymphoma documented in this encounter Results * (ABNORMAL) Differential, Automated (10/01/2012 7:29 AM EDT) Neutrophil % 68.7 34.0 - 71.0 % [facility] MILLENNIUM Neutrophil Absolute 2.30 1.50 - 6.30 x10(3)/mc L [facility]ERN[facility] MILLENNIUM Lymph % 16.7(L) 19.0 - 53.0 % [facility]ERN[facility] MILLENNIUM Lymphocytes Abs 0.6(L) 1.0 - 3.6 x10(3)/mc L [facility]ERN[facility] MILLENNIUM Monocyte % 10.1 4.0 - 13.0 % [facility]ERN[facility] MILLENNIUM Monocyte Abs 0.3 0.2 - 1.0 x10(3)/mc L CERNER MILLENNIUM Eos % 3.3 0.0 - 7.0 % CERNER MILLENNIUM Eosinophils Abs 0.1 0.0 - 0.5 x10(3)/mc L CERNER MILLENNIUM Basophil % 1.2 0.0 - 2.0 % CERNER MILLENNIUM Baso [...] Absolute 0.00 0.00 - 0.05 x10(3)/mc L [facility] Blood specimen (specimen) 10/01/2012 7:29 AM EDT 10/01/2012 7:37 AM EDT Myron Cruz MD HEMATOLOGY ORDERAB LES Performing Organization Address [facility] [[email or web address]] Co de Phone Number [facility] * Sedimentation rate (10/01/2012 7:29 AM EDT) Sedimentation Rate Automated 8 0 - 20 mm/hr [facility] Blood specimen (specimen) 10/01/2012 7:29 AM EDT 10/01/2012 7:37 AM EDT Narrative Resulting Agency Comment Spec In Lab Myron Cruz MD HEMATOLOGY ORDERAB LES Performing Organization Address [facility] [[email or web address]] Co de Phone Number [facility] * (ABNORMAL) Comprehensive metabolic panel (non-fasting) (10/01/2012 7:29 AM EDT) Pathologist [facility] Glucose 64 60 - 199 mg/dL [facility] MILLENNIUM Comment:Diabetes: >=200 mg/d L plus symptoms Blood Urea Nitrogen 13 8 - 18 mg/dL [facility] MILLENNIUM Creatinine 0.74 0.70 - 1.20 mg/dL [facility] MILLENNIUM Comment: Please note that the pediatric reference intervals supplied above were not validated at [facility]. Results from pediatric patients should be interpreted in conjunction to the patient's age, height and muscle mass. Sodium 140 135 - 145 mmol/L [facility] MILLENNIUM Potassium 3.8 3.5 - 5.0 mmol/L [facility] MILLENNIUM Comment: Please note: ??Patients with WBC >100,000 may have falsely elevated Potassium levels. ??For accurate Potassium quantification in these patients send serum separator tube (gold top) for subsequent determinations. ??Contact the Clinical Chemistry Laboratory if there are any questions. Chloride 109(H) 98 - 107 mmol/L [facility] MILLENNIUM Carbon Dioxide 23 22 - 31 mmol/L [facility] MILLENNIUM Anion Gap 8 5 - 15 mmol/L [facility] MILLENNIUM Calcium 8.8 8.5 - 10.5 mg/dL [facility] MILLENNIUM Protein, Total 6.5 6.4 - 8.3 gm/dL [facility] MILLENNIUM Albumin 4.6 3.2 - 5.2 gm/dL [facility] MILLENNI[facility] Aspartate Aminotransferase 20 0 - 30 unit/L [facility] MILLENNIUM Alanine Aminotransferase 14 0 - 30 unit/L [facility] MILLENNIUM Alkaline Phosphatase 33(L) 40 - 104 unit/L [facility] MILLENNIUM Bilirubin, Total 0.5 0.2 - 1.3 mg/dL [facility] MILLENNIUM Bilirubin, Direct 0.2 0.0 - 0.3 mg/dL [facility] MILLENNIUM Est [...] internet browser. http://www.nkdep.nih.gov/lab-evaluation.shtml http://www.kidney.org/professionals/ Blood specimen (specimen) 10/01/2012 7:29 AM EDT 10/01/2012 7:37 AM EDT Narrative Resulting Agency Comment Spec In Lab Myron Cruz MD CHEMISTRY ORDERABL ES [facility] RAUL * (ABNORMAL) CBC (with Diff) (10/01/2012 7:29 AM EDT) White Blood Cell 3.4(L) 4.0 - 10.0 x10(3)/mc L [facility] MILLENNIUM Red Blood Cell 3.70(L) 3.93 - 5.22 x10(6)/mc L [facility] MILLENNIUM Hemoglobin 11.2 11.2 - 15.7 gm/dL [facility] MILLENNIUM Hematocrit 33.6(L) 34.0 - 45.0 % [facility] MILLENNIUM Mean Cell Volume 90.8 79.0 - 94.0 fL [facility] MILLENNIUM Mean Cell Hemoglobin 30.3 26.6 - 32.2 pg [facility]ER MILLENNIUM Mean Cell Hemoglobin Concentration 33.3 32.0 - 36.5 gm/dL [facility] MILLENNIUM Platelet 226 145 - 370 x10(3)/mc L CERNER MILLENNIUM RDW Standard Deviation 41.6 35.0 - 46.0 fL CERN[facility] MILLENNIUM RDW coefficient of variation 12.6 10.9 - 14.4 % CERNER MILLENNIUM Mean Platelet Volume 9.0 9.0 - 12.0 fL [facility] MILLENNIUM Blood specimen (specimen) 10/01/2012 7:29 AM EDT 10/01/2012 7:37 AM EDT Narrative Resulting Agency Comment Spec In Lab Myron Cruz MD HEMATOLOGY ORDERAB LES MAGDALENA CARTER documented in this encounter Visit Diagnoses Diagnosis Hodgkin's lymphoma Hodgkin's disease, unspecified documented in this encounter Care Teams Microwave Remote Sensing Scientist Relationship Specialty Start Date End Date Arabella Villarreal MD [address] [place] [address] [address] [facility] [address] [place] [address] PCP - General 09/16/11 documented as of this encounter
--- OUTSIDE RECORDS SUMMARY | 2024-04-07 01:41 | XMS_ITS | Encounter Summary ---
[place] [address] Care Team Providers Care Communications Program Manager Name Role Phone Arabella Villarreal MD Primary Care Provider [phone] Encounter Details Date Type Department Care Team (Late st Contact Info) Description 03/19/2012 9:00 AM EST Office Visit Hematology [place] [phone] Exam for clinical research (Primary Dx); Hodgkin's lymphoma Social History Tobacco Use Types [...] of this encounter Progress Notes * Olga Espinoza RN - 03/19/2012 8:38 AM EST RESEARCH NURSE OFFICE NOTE CYCLE #6 DAY #15 03/19/2012 [id number]: Phase II Trial of Response-Adapted Therapy Based on Positron Emission Tomography (PET) for Bulky Stage I and Stage II Classical Hodgkin Lymphoma (HL) RUT Gaspar presented to hem-onc clinic, accompanied by aunt, for day 15 of cycle 6 of ABVD as per protocol. Evaluated by Cyndy Alfaro APRN, please see her note for details. Please also see telephone note for interval history. Chasity states that she feels generally well today, after having felt veryfatigued and congested earlier this week. Denies objective fevers, although awoken in sweat during the night on 03/15/12. Chasity reports that she began developing mouth sores on her lip and on the inside of her mouth around 03/09/12, for which she has been using Biotene rinses and subsequently feelsis much improved today. Continues to endorse diarrhea and abdominal cramping for a few days. Heartburn feels better since she began taking Zantac daily. Reports a dry throat at night, for which sheis using a humidifier at home. Localized edema in hands improved initially after chemo, but has recurred today with right hand worse than left. Also recently started having more frequent headaches this week. For anticipatory nausea/anxiety, Chasity continues with plan of taking Ativan prior to chemo appointments at [facility]. Requests private room for today and will use DVDs, music, massage/reiki, fordistraction purposes while in infusion suite. STUDY ASSESSMENTS COMPLETED CBC, Physical exam, AE assessment CHEMOTHERAPY I verified that the dose ordered is consistent with treatment plan per protocol. Dose calculation double-checked. Pt BSA- 2.1; doxorubicin ordered dose/m2 = 25 mg/m2, total doxorubicin dose ordered =53 mg; bleomycin ordered dose/m2 = 10 units/m2, total bleomycin dose ordered = 21 units; vinblastine ordered dose/m2 = 6 mg/m2, total vinblastine dose ordered = 13 mg; dacarbazine ordered dose/m2 = 375 mg/m2, total dacarbazine dose ordered = 791 mg. ANC 0.52 today. Per protocol (section 9.1.1, page 35), there are no dose delays or reductions for ABVD for neutropenia. AE/SIDE EFFECT MONITORING # AE Grade (CTCAE v. 4.0) Start date Stop Date Study Related Interventions/ Outcome 1 Nausea 2 10/17/11 10/24/11 Worst in AM 2 Nausea 1 10/24/11 10/31/11 Scopolamine patch, prn Compazine/Ativan/Zofran 3 Headache 1 10/23/11 10/26/11 4 Headache 2 10/26/11 10/26/11 Avoid Zofran; tylenol/excedrin prn 5 Headache 1 10/27/11 03/05/12 Excedrin prn; increased hydration; mild amounts of caffeine 6 Pain 1 10/19/11 10/22/11 Area of previous PIV site, no intervention as team not aware at time of onset; advised warm compresses on 10/22/11 7 Fatigue 2 10/17/11 10/22/11 8 Fatigue 1 10/22/11 ongoing Alternate rest/activity periods as able 9 Mucositis oral 1 10/18/11 10/18/11 Biotene prn 10 Insomnia 1 10/17/11 10/23/11 11 Injection site reaction 2 11/09/11 11/28/11 Oral antibiotic course 12 Nausea 2 10/31/11 11/05/11 Scopolamine patch, prn Compazine/Ativan, massage therapy 13 Nausea 1 11/05/11 ongoing Scopolamine patch, prn Compazine/Ativan 14 Diarrhea 1 11/12/11 11/12/11 Immodium prn 15 Nasal congestion 1 11/10/11 11/12/11 16 Alopecia 1 11/07/11 ongoing 17 Scalp pain 1 11/07/11 ongoing sensitivity noted with hair loss; Nioxin shampoo 18 Rash acneiform 1 11/07/11 01/09/12 Facial 19 Constipation 1 11/07/11 01/09/12 Docusate sodium prn 20 Mucositis oral 1 11/18/11 12/26/11 burned feeling in mouth 21 Dizziness 1 11/18/11 01/09/12 Monitor closely 22 Dysgeusia 1 11/21/11 12/26/11 Metallic taste; helped by chewing gum 23 Insomnia 2 11/21/11 12/26/11 Ambien 10mg at bedtime prn 24 Ear pain 2 11/17/11 11/21/11 Loratidine 10mg daily 25 Injection site reaction 1 11/28/11 01/09/12 Fading redness noted 26 Insomnia 1 12/26/11 03/19/12 Ambien 10 mg at bedtime prn 27 Hemorrhoids 2 12/26/11 ongoing Using topical hemorrhoidal ointment prn 28 Mucositis 1 12/27/11 03/05/12 Biotene rinses prn 29 Anxiety 2 12/26/11 ongoing Ativan, avoidance of anxiety-provoking stimuli, distraction 30 White blood cell decreased 2 10/31/11 11/28/11 Infection prevention measures 31 White blood cell decreased 3 11/28/11 12/12/11 Infection prevention measures 32 White blood cell decreased 2 12/12/11 12/26/11 Infection prevention measures 33 White blood cell decreased 3 12/26/11 01/24/12 Infection prevention measures 34 Neutrophil count decreased 3 10/31/11 01/24/12 Neutropenic precautions 35 White blood cell decreased 1 01/24/12 02/06/12 36 Dysgeusia 1 01/24/12 02/06/12 37 Dyspepsia 2 01/24/12 02/06/12 Taking Zantac with good effect 38 Localized edema 1 01/24/12 ongoing Bilateral hands (R>L) in AM 39 Gingival pain 1 02/06/12 03/19/12 Frequent oral care and monitoring 40 White blood cell decreased 2 02/06/12 02/20/12 41 White blood cell decreased 3 02/20/12 ongoing Infection prevention measures; neutropenic precautions 42 Neutrophil count decreased 2 02/06/12 02/20/12 43 Neutrophil count decreased 4 02/20/12 03/05/12 Infection prevention measures; neutropenic precautions 44 Reproductive system and breast disorders-Other 2 02/21/12 03/05/12 Vaginal itching; oral diflucan script provided 45 Non-cardiac chest pain 2 02/19/12 02/20/12 ER evaluation 46 Non-cardiac chest pain 1 02/20/12 03/05/12 Pepcid IV in infusion suite; Zantac scheduled x 1 week 47 Diarrhea 1 03/06/12 ongoing Intermittently with urgency/abdominal cramping 48 Nasal congestion 1 03/17/12 03/19/12 49 Sneezing 1 03/17/12 03/19/12 50 Neutrophil count decreased 3 03/05/12 ongoing Infection prevention measures. 51 Mucositis oral 1 03/09/12 ongoing Biotene rinses prn 52 Headache 1 03/16/12 ongoing Intermittently 53 Dry mouth 1 03/18/12 ongoing Humidifier use at night EDUCATION PROVIDED Lab results and plan for follow-up reviewed with patient. Continued support and reassurance regarding anticipatory anxiety and nausea offered. Recovery of immune system discussed with patient per OUTSIDE SALES ENGINEER. PLAN 1. Subject agrees to continue on study [id number] per protocol. 2. Next visit (EOT visit) scheduled for 04/10/12 to include: Labs, AE assessment, and ABVD infusionper protocol. Patient verbalizes understanding of, and agreement with, plan. Advised to contact this office for any questions/concerns, as well as for any new or worsening symptoms. documented in this encounter Plan of Treatment Not on file documented as of this encounter Visit Diagnoses Diagnosis Exam for clinical research- Primary Examination of participant in clinical trial Hodgkin's lymphoma Hodgkin's disease, unspecified documented in this encounter Care Teams Communications Program Manager Relationship Specialty Start Date End Date Arabella Villarreal MD [address] [place] [address] PCP - General 09/16/11 documented as of this encounter
--- OUTSIDE RECORDS SUMMARY | 2024-04-07 01:41 | XMS_ITS | Encounter Summary ---
[place] [address] Care Team Providers Care Regulatory Affairs Portfolio Leader Name Role Phone Arabella Villarreal MD Primary Care Provider Encounter Details Date Type Department Care Team (Late st Contact Info) Description 07/24/2012 9:30 AM EDT Office Visit Hematology [place] [phone] Hodgkin's lymphoma (Primary Dx); Examination of participant in clinical trial Social [...] Progress Notes * Olga Espinoza RN - 07/24/2012 8:53 AM EDT RESEARCH NURSE OFFICE NOTE 3 month follow-up 07/24/2012 [id number]: Phase II Trial of Response-Adapted Therapy Based on Positron Emission Tomography (PET) for 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 Evaluated by Dr. Cruz; please see his note for details. Chasity states that she feels generally well and has noticed resolution to most of her side effects from chemotherapy. 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 Chasity reports that her energy level is back to normal and that her exercise tolerance is improved from baseline. Denies any further nausea,vomiting, diarrhea, or constipation. Continues to take Zantac regularly and has had no symptoms of heartburn. States that and daughter had pneumonia recently, but that she has stayed relatively healthy. Bilateral hand swelling is mildly improved, but continues, and Chasity states that her hand falls asleep intermittently, depending on amount of activity/use. Menstrual cycle has been erratic, although seems to be resetting now (lack of period for approximately 3 months, followed by a very light period, followed by a very lengthy period recently). FSH and LH checked per MD order and patient request today. Protocol-required CTs not completed today due to patient refusal. Chasity verbalizes agreement to completing 6 month scans per protocol in October 2012. STUDY ASSESSMENTS COMPLETED CBC, CMP, ESR, lab kit Physical exam, AE assessment AE/SIDE EFFECT MONITORING # AE Grade (CTCAE [...] 2 10/17/11 10/22/11 8 Fatigue 1 10/22/11 07/24/12 Alternate rest/activity periods as able 9 Mucositis oral 1 10/18/11 10/18/11 Biotene prn 10 Insomnia 1 10/17/11 10/23/11 11 Injection site reaction 2 11/09/11 11/28/11 Oral antibiotic course 12 Nausea 2 10/31/11 11/05/11 Scopolamine patch, prn Compazine/Ativan, massage therapy 13 Nausea 1 11/05/11 07/24/12 Scopolamine patch, prn Compazine/Ativan 14 Diarrhea 1 11/12/11 11/12/11 Immodium prn 15 Nasal congestion 1 11/10/11 11/12/11 16 Alopecia 1 11/07/11 07/24/12 17 Scalp pain 1 11/07/11 04/10/12 sensitivity noted with hair loss; Nioxin shampoo [...] at bedtime prn 27 Hemorrhoids 2 12/26/11 04/10/12 Using topical hemorrhoidal ointment prn 28 Mucositis 1 12/27/11 03/05/12 Biotene rinses prn 29 Anxiety 2 12/26/11 04/10/12 Ativan, avoidance of anxiety-provoking stimuli, distraction 30 [...] 41 White blood cell decreased 3 02/20/12 07/24/12 Infection prevention measures; neutropenic precautions 42 Neutrophil [...] x 1 week 47 Diarrhea 1 03/06/12 07/24/12 Intermittently with urgency/abdominal cramping 48 Nasal congestion 1 03/17/12 03/19/12 49 Sneezing 1 03/17/12 03/19/12 50 Neutrophil count decreased 3 03/05/12 07/24/12 Infection prevention measures. 51 Mucositis oral 1 03/09/12 04/10/12 Biotene rinses prn 52 Headache 1 03/16/12 07/24/12 Intermittently 53 Dry mouth 1 03/18/12 04/10/12 Humidifier use at night 54 Hemorrhoids 1 04/10/12 07/24/12 55 Irregular menstruation 1 02/14/12 ongoing 56 White blood cell decreased 1 07/24/12 ongoing EDUCATION PROVIDED Plan for follow-up reviewed with Chasity, who would still like to limit imaging frequency to every [address] scan only. Survivorship program and recommendation to avoid x 1 year reviewed per . Chasity advised that, now that she is in follow-up, she will not see research RN routinely during visits, but may contact triage/research RN for questions/concerns that arise between her appointments. Solar Consultant to call patient with results of FSH/LH levels once available and will send letter to home with contact information for hematology quarrying manager/research scheduling personal secretary in the near future. PLAN 1. Subject agrees to continue on study [id number] per protocol, currently in follow- up phase of study. 2. Next visit (6-month follow-up) to be scheduled for 10/01/12 to include: Labs, CT, MD/WARPER FIXER visit.Patient has stated that she does not want to have CT scans every 3 months per protocol, but is agreeable to having them done every 6 months. Patient verbalizes understanding of, and agreement with, plan. documented in this encounter Plan of Treatment Scheduled Orders Name Type Priority Associated Diagnoses Orde r Schedule Miscellaneous Lab request Lab Routine Hodgkin's lymphoma Examination of participant in clinical trial Expected: 09/28/2012 (Approximate), Expires: 10/24/2012 Miscellaneous Lab request Lab Routine Hodgkin's lymphoma Examination of participant in clinical trial Expected: 12/23/2012 (Approximate), Expires: 01/23/2013 documented as of this encounter Visit Diagnoses Diagnosis Hodgkin's lymphoma- Primary Hodgkin's disease, unspecified Examination of participant in clinical trial documented in this encounter Care Teams Regulatory Affairs Portfolio Leader Relationship Specialty Start Date End Date Arablela Villarreal MD [address] [place] [address] PCP - General 09/16/11 documented as of this encounter
--- OUTSIDE RECORDS SUMMARY | 2024-04-07 01:41 | XMS_ITS | Encounter Summary ---
Author Organization [facility] [place] [address] Care Team Providers Care Molasses Feed Mixer Name Role Phone Arabella Villarreal MD Primary Care Provider [phone] Reason for Visit * Reason Comments Lymphoma Encounter Details Date Type Department Care Team (Latest Contact Info) Description 03/19/2012 8:05 AM EST - 03/19/2012 11:59 PM [facility] Hospital Encounter Hematology [place] [phone] Hodgkin's lymphoma Social History Tobacco Use Types [...] dgkin's disease Apply topically. Apply liberally to peoples hospital site 30-60 minutes prior to lab appointment, cover with dressing as instructed. 30 g 2 11/15/2011 07/24/2012 LORazepam (ATIVAN) 0.5 mg tabletIndications:H odgkin's lymphoma Take 1 tablet by mouth every 6 hours as needed (Nausea). 50 tablet 3 11/13/2011 07/24/2012 scopolamine (TRANSDERM-SCOP) 1.5 mgIndications:Hodgk in's lymphoma Place 1 patch onto the skin every 72 hours. Use as needed for nausea not relieved by Zofran or Compazine. 10 patch 12 10/22/2011 07/24/2012 ranitidine (ZANTAC) 150 mg tabletIndications:g astroesophageal reflux disease Take 150 mg by mouth daily as needed. Indications: Gastroesophageal Reflux 04/02/19 23 vitamin 27 & [id number] 60 mg iron-1 mg tablet Take 1 tablet by mouth daily. 04/02/2022 documented as of this encounter Progress Notes * Janiya Mai RN - 03/19/2012 10:18 AM EST Patient Name: Chasity Gallo Patient Age: 31 y.o. Birthdate: 1980 Admit date: 03/19/2012 Attending Physician: Shanti bingham. providers found TIME TREATMENT STARTED: 1000 TIME TREATMENT ENDED: 1310 Chasity Gallo, 31 y.o. female with diagnosis of Hodgkins is here for chemotherapy infusion of ABVD. PROTOCOL: [id number] CYCLE: 4 DAY: 15 S: Pt. offers no complaints at this time. O: Chemotherapy orders independently verified for correct drug name, route and dosage per patient'sheight, weight and BSA by Janiya Mai RN and onsite pharmacist. [facility] previously accessed Tylenol 650 mg PO Aloxi 0.25 mg IVP Hydrocortisone 100 mg IV Pepcid 20 mg IV Emend 150 mg IV Doxorubicon 53 mg IV +brisk blood return noted every 3-5 ml, administered with free flowing NS Vinblastine 13 mg +brisk blood return noted every 3-5 ml, administered with free flowing NS Bleomycin 21 units Dacarbazine 791 mg Declines Ativan Port to be heparinized by Cyndy Alfaro. REACTIONS (DESCRIPTION, TIME, INTERVENTION AND EFFECTIVENESS) none A: Pt. Tolerated treatment well. Chasity Gallo confirms that all questions and issues have been addressed. P: Return to clinic per routine documented in this encounter Plan of Treatment Not on file documented as of this encounter Visit Diagnoses Diagnosis Hodgkin's lymphoma Hodgkin's disease, unspecified documented in this encounter Administered Medications Inactive Administered Medications - up to 3 most recent administrations Medication Order MAR Action Action Date Dose Rate Site acetaminophen (TYLENOL) tablet 650 mg 650 mg, Oral, ONCE, 1 dose, On Marleny 03/19/12 at 1015, Before Bleomycin on day 1 and day 15. Maximum dose of acetaminophen is 4000 mg from all sources in 24 hours., Routine Given 03/19/2012 10:17 AM EST 650 mg bleomycin (BLEOCIN) 21 Units in sodium chloride 0.9% 57 mL chemo infusion 21 Units, Intravenous, ONCE, 1 dose, On Marleny 03/19/12 at 1200, Administer over 30 Minutes, 1 unit = 1 mg New Bag 03/19/2012 11:58 AM EST 21 Units 114 mL/hr dacarbazine (DTIC) 791 mg in dextrose 5% 329.1 mL chemo infusion 791 mg, Intravenous, ONCE, 1 dose, On Marleny 03/19/12 at 1200, Administer over 30 Minutes New Bag 03/19/2012 12:31 PM EST 791 mg 658.2 mL/hr DOXOrubicin (ADRIAMYCIN) chemo injection 53 mg 53 mg, Intravenous, ONCE, 1 dose, On Marleny 03/19/12 at 1200, Administer over 5 Minutes, Vesicant/irritant. Avoid extravasation Given 03/19/2012 11:48 AM EST 53 mg 318 mL/hr famotidine (PEPCID) injection 20 mg 20 mg, Intravenous, ONCE, 1 dose, On Marleny 03/19/12 at 1015, Pre-Treatment, day 1 and day 15. Given 03/19/2012 10:33 AM EST 20 mg fosaprepitant (EMEND) 150 mg in sodium chloride 0.9% 155 mL infusion 150 mg, Intravenous, ONCE, 1 dose, On Marleny 03/19/12 at 1015, Administer over 30 Minutes, 30 minutes prior to chemotherapy. New Bag 03/19/2012 10:50 AM EST 150 mg 310 mL/hr hydrocortisone sodium succinate (PF) (SOLU-CORTEF) injection 100 mg 100 mg, Intravenous, ONCE, 1 dose, On Marleny 03/19/12 at 1015, Before Bleomycin on day 1 and day 15. Given 03/19/2012 10:15 AM EST 100 mg palonosetron (ALOXI) injection 0.25 mg 0.25 mg, Intravenous, ONCE, 1 dose, On Marleny 03/19/12 at 1015, Pre-Chemotherapy., Routine Given 03/19/2012 10:14 AM EST 0.25 mg vinBLAStine (VELBAN) chemo injection 13 mg 13 mg, Intravenous, ONCE, 1 dose, On Marleny 03/19/12 at 1200, Administer over 5 Minutes, FOR IV USE ONLY. FATAL IF GIVEN BY OTHER ROUTES. Vesicant/irritant Avoid extravasation Given 03/19/2012 11:53 AM EST 13 mg 156 mL/hr documented in this encounter Care Teams Molasses Feed Mixer Relationship Specialty Start Date End Date Arabella Villarreal MD [address] [place] [address] PCP - General 09/16/11 documented as of this encounter
--- OUTSIDE RECORDS SUMMARY | 2024-04-07 01:41 | XMS_ITS | Encounter Summary ---
Author Organization Formerly [facility] Address [facility] [place] [address] Care Team Providers Care Pl Sql Programmer Name Role Phone Arabella Villarreal MD Primary Care Provider [phone] Encounter Details Date Type Department Care Team (Late st Contact Info) Description 04/10/2012 12:31 PM EST - 04/10/2012 11:59 PM [facility] Hospital [place] [id number] CLINIC, Pamela Richards MD [facility] HEMATOLOGY [place] [address] Hodgkin's lymphoma Discharge Disposition: Home Social History [...] dgkin's disease Apply topically. [facility]60 minutes prior to lab appointment, [...] Gastroesophageal Reflux 04/02/19 23 vitamin 27 & [id number] 60 mg iron-1 mg tablet Take 1 tablet by mouth daily. 04/02/2022 documented as of this encounter Plan of Treatment Not on file documented as of this encounter Procedures Procedure Name Priority Date/Time Associated Diagnosis Comments DIFFERENTIAL, MANUAL STAT 04/10/2012 12:47 PM EST SEDIMENTATION RATE STAT 04/10/2012 12 :47 PM EST Hodgkin's lymphoma CBC (WITH DIFF) STAT 04/10/2012 12:47 PM EST Hodgkin's lymphoma COMPREHENSIVE METABOLIC PANEL STAT 04/10/2012 12:47 PM EST Hodgkin's lymphoma documented in this encounter Results * (ABNORMAL) Differential, Manual (04/10/2012 12:47 PM EST) Neutrophil % Manual 38 34 - 71 % CERNER MILLENNIUM Band % 1 0 - 12 % CERNER MILLENNIUM Lymphocyte Manual 45 19 - 53 % CERNER MILLENNIUM Monocyte Manual 10 4 - 13 % CERN ER MILLENNIUM Eosinophil Manual 5 0 - 7 % CERNER MILLENNIUM Basophil Manual 1 0 - 2 % CERN ER MILLENNIUM Neutrophil Absolute (ANC) - Manual 0.7(L) 1.5 - 6.3 x10(3)/mcL CERNER MILLENNIUM Band Abs 0.0(L) 0.2 - 0.6 x10(3)/mcL CERNER MILLENNIUM Neutrophil Absolute (ANC) - Automated 0.75(L) 1.50 - 6.30 x10(3)/mcL CERNER MILLENNIUM Lymph Absolute Manual 0.9(L) 1.0 - 3.6 x10(3)/mcL CERNER MILLENNIUM Monocyte Absolute Manual 0.2 0.2 - 1.0 x10(3)/mcL CERNER MILLENNIUM Eos Absolute Manual 0.1 0.0 - 0.5 x10(3)/mcL CERNER MILLENNIUM Baso Absolute Manual 0.0 0.0 - 0.2 x10(3)/mcL CERNER MILLENNIUM Total Cells Ct 100 CERNE R MILLENNIUM Plat estimate Normal CERNER MILLENNIUM RBC Morphology Normal CERNE R MILLENNIUM Blood specimen (specimen) 04/10/2012 12:47 PM EST 04/10/2012 12:51 PM EST Narrative Resulting Agency Comment Spec In Lab Myron Cruz MD HEMATOLOGY ORDERAB LES Performing Organization Address City/[facility] de Phone Number CERNER MILLENNIUM * Sedimentation rate (04/10/2012 12:47 PM EST) Sedimentation Rate Automated 15 0 - 20 mm/hr CERNER MILLENNIUM Blood specimen (specimen) 04/10/2012 12:47 PM EST 04/10/2012 12:51 PM EST Narrative Resulting Agency Comment Spec In Lab Myron Cruz MD HEMATOLOGY ORDERAB LES CERNER MILLENNIUM * (ABNORMAL) Comprehensive metabolic panel (non-fasting) (04/10/2012 12:47 PM EST) [facility] Glucose 97 60 - 199 mg/dL CERNER MILLENNIUM Comment:Diabetes: >=200 mg/d L plus symptoms Blood Urea Nitrogen 9 8 - 18 mg/dL CERNER MILLENNIUM Creatinine 0.86 0.70 - 1.20 mg/dL CERNER MILLENNIUM Comment: Please note that the pediatric reference intervals supplied above were not validated at [facility]. Results from pediatric patients should be interpreted in conjunction to the patient's age, height and muscle mass. Sodium 142 135 - 145 mmol/L CERNER MILLENNIUM Potassium 4.1 3.5 - 5.0 mmol/L CERNER MILLENNIUM Comment: Please note: ??Patients with WBC >100,000 may have falsely elevated Potassium levels. ??For accurate Potassium quantification in these patients send serum separator tube (gold top) for subsequent determinations. ??Contact the Clinical Chemistry Laboratory if there are any questions. Chloride 107 98 - 107 mmol/L CERNER MILLENNIUM Carbon Dioxide 27 22 - 31 mmol/L CERNER MILLENNIUM Anion Gap 8 5 - 15 mmol/L CERNER MILLENNIUM Calcium 8.9 8.5 - 10.5 mg/dL CERNER MILLENNIUM Protein, Total 6.3(L) 6.4 - 8.3 gm/dL CERNER MILLENNIUM Albumin 4.2 3.2 - 5.2 gm/dL CERNER MILLENNIUM Aspartate Aminotransferase 18 0 - 30 unit/L CERNER MILLENNIUM Alanine Aminotransferase 16 0 - 30 unit/L CERNER MILLENNIUM Alkaline Phosphatase 39(L) 40 - 104 unit/L CERNER MILLENNIUM Bilirubin, Total 0.2 0.2 - 1.3 mg/dL CERNER MILLENNIUM Bilirubin, Direct <0.1 0.0 - 0.3 mg/dL CERNER MILLENNIUM Est Glomerular Filtration Rate >60 >=60 CERNER MILLENNIUM Comment: The National Kidney Disease Education Program (NKDEP) has recommended all laboratories report estimated GFR (eGFR) along with plasma creatinine measurements to assist you with recognition of early kidney disease. Caveats: ??Plasma creatinine should be at steady-state (unchanged within the past week). For patients multiply eGFR by 1.2. The MDRD equation was developed using patients between the ages of 18 and 70 years. ?? The MDRD equation has not been validated for patients < 18 years of age and should not be used to assess renal function in the pediatric population. ??The MDRD eGFR equation will also overestimate the true GFR of patients above the age of 70. ??This overestimation is variable but increases with age. At present, NKDEP does NOT recommend using the MDRD equation for drug dosing purposes and pharmacists should continue to use their current dosing methods. In addition, numerical eGFR values greater than 60 ml/min/1.73 square meters should be treated as > 60, and not an exact number due to greater inaccuracies at these higher values. Per NKDEP, they classify normal renal function as any GFR >60ml/min/1.73 square meters; chronic kidney disease when GFR <60, and renal failure when GFR <15. ??This calculation may not be valid for patients with atypical muscle mass (very lean or obese), acute renal failure, and in patients with diabetic kidney disease. References: http://nkdep.nih.gov/resources/NKDEP_Suggestn4Labs_0606_508.pdf http://www.kidney.org/professionals/kls/pdf/faq_gfr.pdf Trish K, Heri NA, Trey AK, Emeterio TS, Jian AD, Isaac NASREEN. Relative performance of the MDRD and CKD-EPI equations for estimating glomerular filtration rate among patients with varied clinical presentations. Clin J Am Soc Nephrol;6:1963-72. Blood specimen (specimen) 04/10/2012 12:47 PM EST 04/10/2012 12:51 PM EST Narrative Resulting Agency Comment Spec In Lab Myron Cruz MD CHEMISTRY ORDERABL ES MAGDALENA CARTER * (ABNORMAL) CBC (with Diff) (04/10/2012 12:47 PM EST) White Blood Cell 1.9(Criti mario) 4.0 - 10.0 x10(3)/mc L MAGDALENA CARTER Red Blood Cell 3.71(L) 3.93 - 5.22 x10(6)/mc L CERNER MILLENNIUM Hemoglobin 11.0(L) 11.2 - 15.7 gm/dL CERNER MILLENNIUM Hematocrit 32.9(L) 34.0 - 45.0 % CERNER MILLENNIUM Mean Cell Volume 88.7 79.0 - 94.0 fL CERNER MILLENNIUM Mean Cell Hemoglobin 29.6 26.6 - 32.2 pg CERNER MILLENNIUM Mean Cell Hemoglobin Concentration 33.4 32.0 - 36.5 gm/dL CERNER MILLENNIUM Platelet 259 145 - 370 x10(3)/mc L CERNER MILLENNIUM RDW Standard Deviation 41.7 35.0 - 46.0 fL CERNER MILLENNIUM RDW coefficient of variation 12.9 10.9 - 14.4 % CERNER MILLENNIUM Mean Platelet Volume 9.0 9.0 - 12.0 fL CERNER MILLENNIUM Blood specimen (specimen) 04/10/2012 12:47 PM EST 04/10/2012 12:51 PM EST Narrative Resulting Agency Comment Spec In Lab Myron Cruz MD HEMATOLOGY ORDERAB LES MAGDALENA CARTER documented in this encounter Visit Diagnoses Diagnosis Hodgkin's lymphoma Hodgkin's disease, unspecified documented in this encounter Care Teams Pl Sql Programmer Relationship Specialty Start Date End Date Arabella Villarreal MD [address] [place] [address] PCP - General 09/16/11 documented as of this encounter
--- OUTSIDE RECORDS SUMMARY | 2024-04-07 01:41 | XMS_ITS | Encounter Summary ---
[place] [address] Care Team Providers Care Numerical Control Machine Operator Name Role Phone Arabella Villarreal MD Primary Care Provider [phone] Encounter Details Date Type Department Care Team (Latest Contact Info) Description 04/10/2012 1:31 PM EST - 04/10/2012 2:07 PM [facility] Hospital [place] [id number] Hodgkin's lymphoma Social History Tobacco Use Types [...] tablet 3 11/13/2011 07/24/2012 scopolamine (TRANSDERM-SCOP) 1.5 mgIndications:Irish in's lymphoma Place 1 patch onto the skin every 72 hours. Use as needed for nausea not relieved by Zofran or Compazine. 10 patch 12 10/22/2011 07/24/2012 ranitidine (ZANTAC) 150 mg tabletIndications:g astroesophageal reflux disease Take 150 mg by mouth daily as needed. Indications: Gastroesophageal Reflux 04/02/19 23 vitamin 27 & npguzun-[id number]-UB 60 mg iron-1 mg tablet Take 1 tablet by mouth daily. 04/02/2022 documented as of this encounter Miscellaneous Notes * Miscellaneous - Provider, Scanning - 04/15/2012 11:48 AM EST documented in this encounter Plan of Treatment Not on file documented as of this encounter Procedures Procedure Name Priority Date/Time Associated Diagnosis Comments CT NECK SOFT TISSUE W CONTRAST Routine 04/10/2012 2:01 PM EST Hodgkin's disease, unspecified documented in this encounter Results * CT neck soft tissue with contrast (04/10/2012 2:01 PM EST) Anatomical Region Laterality Modality Neck, Head Computed Tomogra phy 04/10/2012 2:01 PM EST Narrative 04/10/2012 2:[address] Neck With Contrast Clinical History Restaging Hodgkin's lymphoma after 6 cycles ABVD Lymphoma study protocol patient Use bi-dimensional measurements DO NOT use RECIST criteria Comparison 12/06/2011. Technique CT of the neck with contrast. ??110 mL of Omni 350 administered. Findings The previously seen lymph nodes are decreased in size and no new lymphadenopathy. ??A right retroclavicular lymph node measures 15 x 17 mm compared to 22 x 28 mm on the previous study. ??A right submandibular lymph node measures 6 x 8 mm compared to 9 x 6 mm on the previous study. ??A left sided submandibular lymph node measures 7 x 11 mm compared to 13 x 9 mm on the previous study. ??No aggressive osseous lesions. Impression Significant interval improvement. Procedure Note Santiago Xiong MD - 04/10/[address] Neck With Contrast Clinical History Restaging Hodgkin's lymphoma after 6 cycles ABVD Lymphoma study protocol patient Use bi-dimensional measurements DO NOT use RECIST criteria Comparison 12/06/2011. Technique CT of the neck with contrast. 110 mL of Omni 350 administered. Findings The previously seen lymph nodes are decreased in size and no new lymphadenopathy. A right retroclavicular lymph node measures 15 x 17 mm compared to 22 x 28 mm on the previous study. A right submandibular lymphnode measures 6 x 8 mm compared to 9 x 6 mm on the previous study. A leftsided submandibular lymph node measures 7 x 11 mm compared to 13 x 9 mm on the previous study. No aggressive osseous lesions. Impression Significant interval improvement. Myron Cruz MD IMG CT ORDERABLES documented in this encounter Visit Diagnoses Diagnosis Hodgkin's lymphoma Hodgkin's disease, unspecified documented in this encounter Care Teams Numerical Control Machine Operator Relationship Specialty Start Date End Date Arabella Villarreal MD [address] [facility] [address] [place] [address] PCP - General 09/16/11 documented as of this encounter
--- OUTSIDE RECORDS SUMMARY | 2024-04-07 01:41 | XMS_ITS | Encounter Summary ---
Author Organization [facility] [place] [address] Care Team Providers Care Exceptional Children'S Teacher Name Role Phone Arabella Villarreal MD Primary Care Provider [phone] Encounter Details Date Type Department Care Team (Late st Contact Info) Description 03/09/2012 Orders Only Hematology [place] [address] Myron Cruz MD [facility] [address] HEMATOLOGY [place] [address] Hodgkin's lymphoma (Primary Dx) Social History Tobacco [...] documented as of this encounter Results * IR mediport placement or removal (04/10/2012 11:14 AM EST) Anatomical Region Laterality Modality X-Ray Angiograph y 04/10/2012 11:1 4 AM EST Narrative 04/13/2012 11:00 AM EST VIR PROCEDURE NOTE ?? Procedure: Single lumen chest port removal. ?? Indication for Procedure: Completion of chemotherapy. ? Intervention: Informed consent obtained. A moment of truth was performed and the patient and procedure correctly identified. Split doses of fentanyl and versed were administered by the IR nurse during continuous monitoring of pulse, blood pressure and oxygen saturation for alleviation of discomfort. Maximal sterile barrier technique prep and drape. ?? Preprocedure IV antibiotics administered. Skin anesthetized with 1% lidocaine as well as bupivacaine with epinephrine. Blunt and sharp dissection used to remove, intact, single lumen port. Wound copiously irrigated. The pocket was closed using a two layer technique with absorbable suture material (2-0 vicryl deep interrupted and 4-0 monocryl running subcuticular). Skin closed with indermil. ?? Meds: 3 mg IV Versed ?? 150 mcg IV fentanyl ?? 1 gm IV ancef ?? 10 CC Lidocaine 1% used ?? EBL: none ?? Complications: None. ?? Procedure performed by: Nimisha Gonsales PA-C ?? Attending: Dr. Bradford Procedure Note Onesimo Bradford MD - 04/13/2012 [facility] PROCEDURE NOTE Procedure: Single lumen chest port removal. Indication for Procedure: Completion of chemotherapy. Intervention: Informed consent obtained. A moment of truth was performedand the patient and procedure correctly identified. Split doses of fentanyland versed were administered by the IR nurse during continuous monitoring ofpulse, blood pressure and oxygen saturation for alleviation of discomfort.Maximal sterile barrier technique prep and drape. Preprocedure IV antibiotics administered. Skin anesthetized with 1%lidocaine as well as bupivacaine with epinephrine. Blunt and sharp dissection usedto remove, intact, single lumen port. Wound copiously irrigated. The pocketwas closed using a two layer technique with absorbable suture material (2-0vicryl deep interrupted and 4-0 monocryl running subcuticular). Skin closed with indermil. Meds: 3 mg IV Versed 150 mcg IV fentanyl 1 gm IV ancef 10 CC Lidocaine 1% used EBL: none Complications: None. Procedure performed by: Nimisha Gonsales PA-C Attending: Dr. Bradford Myron Cruz MD IMG IR ORDERABLES documented in this encounter Visit Diagnoses Diagnosis Hodgkin's lymphoma- Primary Hodgkin's disease, unspecified Hodgkin's lymphoma Hodgkin's disease, unspecified documented in this encounter Care Teams Exceptional Children'S Teacher Relationship Specialty Start Date End Date Arabella Villarreal MD [address] [place] [address] PCP - General 09/16/11 documented as of this encounter
--- OUTSIDE RECORDS SUMMARY | 2024-04-07 01:41 | XMS_ITS | Encounter Summary ---
Author Organization [facility] [place] [address] Care Team Providers Care Rim Turning Finisher Name Role Phone Arabella Villarreal MD Primary Care Provider [phone] Encounter Details Date Type Department Care Team (Latest Contact Info) Description 12/24/2012 8:00 AM EDT Ancillary Appointment [place]ematology [place] [phone] CLINIC, Myron Denney MD [facility] [place] [address] Hodgkin's lymphoma; Examination of participant in clinical [...] trial documented in this encounter Care Teams Rim Turning Finisher Relationship Specialty Start Date End Date Arabella Villarreal MD [address] [place] [address] [address] [place] [address] PCP - General 09/16/11 documented as of this encounter
--- OUTSIDE RECORDS SUMMARY | 2024-04-07 01:41 | XMS_ITS | Encounter Summary ---
Author Organization [place] [address] Care Team Providers Care Product Sales Representative Name Role Phone Arabella Villarreal MD Primary Care Provider [phone] Encounter Details Date Type Department Care Team (Late st Contact Info) Description 04/10/2012 12:30 PM EST Ancillary Appointment Hematology [place] [phone] CLINIC, Pamela Richards MD [facility] [place] [address] Hodgkin's lymphoma Discharge Disposition: Home Social History [...] unspecified documented in this encounter Care Teams Product Sales Representative Relationship Specialty Start Date End Date Arabella Villarreal MD [address] [place] [address] [address] [place] [address] PCP - General 09/16/11 documented as of this encounter
--- OUTSIDE RECORDS SUMMARY | 2024-04-07 01:41 | XMS_ITS | Encounter Summary ---
Author Organization Formerly [facility] [place] [address] Care Team Providers Care Labor Gang Supervisor Name Role Phone Arabella Villarreal MD Primary Care Provider [phone] Encounter Details Date Type Department Care Team (Late st Contact Info) Description 03/22/2013 2:30 PM EST Follow-Up [place] [id number] Myron Cruz MD [facility] [address] HEMATOLOGY [place] [address] Hodgkin's lymphoma Discharge Disposition: Home Social History [...] Sign Reading Time Taken Comments Blood Pressure 131/69 03/22/2013 2:33 PM EST Pulse 58 03/22/2013 2:33 PM EST Temperature 36.8 ??C (98.2 ??F) 03/22/2013 2:33 PM ES T Respiratory Rate 16 03/22/2013 2:33 PM EST Oxygen Saturation 100% 03/22/2013 2:33 PM EST Inhaled Oxygen Concentration - - Weight 79.2 kg (174 lb 9.7 oz) 03/22/2013 2:33 P M EST Height 168.4 cm (5' 6.3) 03/22/2013 2:33 PM EST Body Mass Index 27.93 03/22/2013 2:33 PM EST documented in this encounter Progress Notes * Myron Cruz MD - 03/22/2013 3:08 PM EST HEMATOLOGY FOLLOW UP NOTE Chasity Gallo [...] to Visit Medication Sig Dispense Refill ??? loratadine (CLARITIN) 10 mg tablet Take 10 mg by mouth daily. Indications: Seasonal allergies ??? Lysine HCl 500 mg Tab Take 500 mg by mouth 2 times daily. Indications: Cold sores ??? ranitidine (ZANTAC) 150 mg tablet Take 150 mg by mouth daily as needed. Indications: Gastroesophageal Reflux ? ? vitamin 27 & [id number] 60 mg iron-1 mg tablet Take 1 tablet by mouth daily. Current Facility-Administered Medications on [...] 1303 Allergies: Allergies Allergen Reactions ??? Other (Unclassified Drug) Nausea Only Prefilled saline syringes cause severe nausea--please draw saline flushes from vials or bags only! Interim History: Chasity Gallo returns to clinic today in routine follow-up for her Hodgkin Disease s/p completion of 6 cycles of ABVD chemotherapy on clincal trial CALGB 13194 in March 2012. Since her last visit ~ 3 months ago, Chasity reports feeling quite well. Interim history: Reflux still persists but manageable. Ranitidine works. + sinus issues: PCP gave amoxicillin. Has been having headaches. Today starting to feel some relieffinally. Denies f/c/ns. Denies SOB, CP. Denies swelling. Menstrual cycle is regular, a little early at times. Excercising more. Feels good. Able to work out longer and longer. Residual neuropathy--feels swollen in AM, PCP trying Vitamin B6. Review of Systems: Hematological and Lymphatic ROS: [...] negative except for above. Physical Exam: BP 131/69 Pulse 58 Temp 36.8 ??C (98.2 ??F) (Oral) Resp 16 Ht 168.4 cm (5' 6.3) Wt 79.2 kg (174 lb 9.7 oz) BMI 27.93 kg/m2 SpO2 100% Gen: well appearing, well developed, well nourished 32-year-old woman in no acute distress. HEENT: PERRL, no oral lesions, mucus membranes moist without ulcerations, hyperemia, exudative plaques or lesions. Hair growing in.LN survey: no palpable cervical or supraclavicular or axillary adenopathy Chest: clear to ausculatation bilaterally; well-healed mediport removal site. No drainage. CV: S1S2, RRR, no murmurs, rubs, gallops Abd: soft, flat, non-tender, no palpable masses or hepatosplenomegaly. NABS. Ext: no edema Neuro: grossly intact MS: no bony tenderness Laboratory: Recent Results (from the past 24 hour(s)) CBC (WITH DIFF) Component Value Range WBC 4.4 4.0 - 10.0 x10(3)/mcL RBC 3.75 (*) 3.93 - 5.22 x10(6)/mcL Hemoglobin 11.3 11.2 - 15.7 gm/dL Hematocrit 33.6 (*) 34.0 - 45.0 % MCV 89.6 79.0 - 94.0 fL MCH 30.1 26.6 - 32.2 pg MCHC 33.6 32.0 - 36.5 gm/dL Platelets 250 145 - 370 x10(3)/mcL RDWSD 38.8 35.0 - 46.0 fL RDWCV 11.9 10.9 - 14.4 % MPV 9.3 9.0 - 12.0 fL COMPREHENSIVE METABOLIC PANEL (NON-FASTING) Component Value Range Glucose Lvl 92 60 - 199 mg/dL BUN 15 8 - 18 mg/dL Creatinine 0.77 0.70 - 1.20 mg/dL Sodium 138 135 - 145 mmol/L Potassium 4.0 3.5 - 5.0 mmol/L Chloride 102 98 - 107 mmol/L CO2 26 22 - 31 mmol/L Anion Gap 10 5 - 15 mmol/L Calcium 9.4 8.5 - 10.5 mg/dL Total Protein 6.5 6.4 - 8.3 gm/dL Albumin 4.4 3.2 - 5.2 gm/dL AST 27 0 - 30 unit/L ALT 26 0 - 30 unit/L Alk Phos 36 (*) 40 - 104 unit/L Total Bilirubin 0.3 0.2 - 1.3 mg/dL Bili, Direct 0.1 0.0 - 0.3 mg/dL Estimated GFR >60 >=60 SEDIMENTATION RATE Component Value Range Sed Rate 7 0 - 20 mm/hr DIFFERENTIAL, AUTOMATED Component Value Range Neutrophils % 70.7 34.0 - 71.0 % Neutr Abs (ANC) 3.09 1.50 - 6.30 x10(3)/mcL Lymphocytes % 19.7 19.0 - 53.0 % Lymphocytes Abs 0.9 (*) 1.0 - 3.6 x10(3)/mcL Monocytes % 6.4 4.0 - 13.0 % Monocyte Abs 0.3 0.2 - 1.0 x10(3)/mcL Eosinophils % 1.6 0.0 - 7.0 % Eosinophils Abs 0.1 0.0 - 0.5 x10(3)/mcL Basophils % 1.4 0.0 - 2.0 % Basophils Abs 0.1 0.0 - 0.2 x10(3)/mcL Immature Gran % 0.20 0.00 - 0.66 % Maryann Gran Abs 0.01 0.00 - 0.05 x10(3)/mcL Radiographic Data: 03/22/2013 Findings The following indicator sites are measured: [...] posterior basilar pleural nodularity of indeterminate etiology. Trace new right pleural fluid. No new areas of thoracic adenopathy. Decrease in previously noted measured areas as noted above. No axillary adenopathy. Abdomen/pelvis: The liver is enlarged, measuring approximately 21 cm cranial-caudal dimension. A stable, approximate 8 mm indeterminate hypodensity seen along the anterior aspect of the left lobe. No dilated [...] above. 2. No new areas of disease. Assessment/Plan: 32 year old now s/p 6 cycles of ABVD for stage IIA HL, ABVD on study PET2 negativecentral review, and s/p 6 cycles of ABVD, last dose 03/19/2012. PET showed CR after all therapy. No clinical, laboratory or radiographic evidence of disease progression. No residual effects of chemothe rapy identified. -No evidence of relapse by symptoms or labs or CT which I personally reviewed -RTC in 3 months -Scanning as per protocol. Total time spent with patient: 30 minutes Time spent in counseling and coordination of care: 20 minutes Myron Cruz MD Gallery Directorveneer drier tailer Section of Hematology/Oncology [facility] Cc: Arabella Villarreal MD documented in this encounter Plan of Treatment Not on file documented as of this encounter Procedures Procedure Name Priority Date/Time Associated Diagnosis Comments DIFFERENTIAL, AUTOMATED STAT 03/22/2013 12:15 PM EST SEDIMENTATION RATE STAT 03/22/2013 12 :15 PM EST Hodgkin's lymphoma CBC (WITH DIFF) STAT 03/22/2013 12:15 PM EST Hodgkin's lymphoma COMPREHENSIVE METABOLIC PANEL STAT 03/22/2013 12:15 PM EST Hodgkin's lymphoma documented in this encounter Results * (ABNORMAL) Differential, Automated (03/22/2013 12:15 PM EST) Neutrophil % 70.7 34.0 - 71.0 % MELECIONER MILLENNIUM Neutrophil Absolute 3.09 1.50 - 6.30 x10(3)/mc L CERNER MILLENNIUM Lymph % 19.7 19.0 - 53.0 % CERNER MILLENNIUM Lymphocytes Abs 0.9(L) 1.0 - 3.6 x10(3)/mc L CERNER MILLENNIUM Monocyte % 6.4 4.0 - 13.0 % CERNER MILLENNIUM Monocyte Abs 0.3 0.2 - 1.0 x10(3)/mc L CERNER MILLENNIUM Eos % 1.6 0.0 - 7.0 % CERNER MILLENNIUM Eosinophils Abs 0.1 0.0 - 0.5 x10(3)/mc L CERNER MILLENNIUM Basophil % 1.4 0.0 - 2.0 % CERNER MILLENNIUM Baso Absolute 0.1 0.0 - 0.2 x10(3)/mc L CERNER MILLENNIUM Immature Gran % 0.20 0.00 - 0.66 % CERNER MILLENNIUM Comment: Immature granulocytes(IG's)percentage and absolute count will include metamyelocytes, myelocytes, and promyelocytes. Blood smears from CBCs yielding IG's will be scanned manually for concordance. If this scan disagrees with the automated IG or if promyelocytes are noted, a manual differential will be performed. Immature Gran Absolute 0.01 0.00 - 0.05 x10(3)/mc L CERNER MILLENNIUM Blood specimen (specimen) 03/22/2013 12:15 PM EST 03/22/2013 12:24 PM EST Myron Cruz MD HEMATOLOGY ORDERAB LES MAGDALENA SARMIENTOIUM * Sedimentation rate (03/22/2013 12:15 PM EST) Sedimentation Rate Automated 7 0 - 20 mm/hr CERNER MILLENNIUM Blood specimen (specimen) 03/22/2013 12:15 PM EST 03/22/2013 12:24 PM EST Narrative Resulting Agency Comment Spec In Lab Myron Cruz MD HEMATOLOGY ORDERAB LES CERAZEB SARMIENTOIUM * (ABNORMAL) Comprehensive metabolic panel (non-fasting) (03/22/2013 12:15 PM EST) [facility] Glucose 92 60 - 199 mg/dL CERNER MILLENNIUM Comment:Diabetes: >=200 mg/d L plus symptoms Blood Urea Nitrogen 15 8 - 18 mg/dL CERNER MILLENNIUM Creatinine 0.77 0.70 - 1.20 mg/dL CERNER MILLENNIUM Comment: Please note that the pediatric reference intervals supplied above were not validated at [facility]. Results from pediatric patients should be interpreted in conjunction to the patient's age, height and muscle mass. Sodium 138 135 - 145 mmol/L CERNER MILLENNIUM Potassium 4.0 3.5 - 5.0 mmol/L CERNER MILLENNIUM Comment: [...] 5 - 15 mmol/L CERNER MILLENNIUM Calcium 9.4 8.5 - 10.5 mg/dL CERNER MILLENNIUM Protein, Total 6.5 6.4 - 8.3 gm/dL CERNER MILLENNIUM Albumin 4.4 3.2 - 5.2 gm/dL CERNER MILLENNIUM Aspartate Aminotransferase 27 0 - 30 unit/L CERNER MILLENNIUM Alanine Aminotransferase 26 0 - 30 unit/L CERNER MILLENNIUM Alkaline Phosphatase 36(L) 40 - 104 unit/L CERNER MILLENNIUM Bilirubin, [...] internet browser. http://www.nkdep.nih.gov/lab-evaluation.shtml http://www.kidney.org/professionals/ Blood specimen (specimen) 03/22/2013 12:15 PM EST 03/22/2013 12:24 PM EST Narrative Resulting Agency Comment Spec In Lab Myron Cruz MD CHEMISTRY ORDERABL ES Performing Organization Address City/[facility]/ZIP Co de Phone Number CERNER MILLENNIUM * (ABNORMAL) CBC (with Diff) (03/22/2013 12:15 PM EST) White Blood Cell 4.4 4.0 - 10.0 x10(3)/mc L CERNER MILLENNIUM Red Blood Cell 3.75(L) 3.93 - 5.22 x10(6)/mc L CERNER MILLENNIUM Hemoglobin 11.3 11.2 - 15.7 gm/dL CERNER MILLENNIUM Hematocrit 33.6(L) 34.0 - 45.0 % CERNER MILLENNIUM Mean Cell Volume 89.6 79.0 - 94.0 fL CERNER MILLENNIUM Mean Cell Hemoglobin 30.1 26.6 - 32.2 pg CERNER MILLENNIUM Mean Cell Hemoglobin Concentration 33.6 32.0 - 36.5 gm/dL CERNER MILLENNIUM Platelet 250 145 - 370 x10(3)/mc L CERNER MILLENNIUM RDW Standard Deviation 38.8 35.0 - 46.0 fL CERNER MILLENNIUM RDW coefficient of variation 11.9 10.9 - 14.4 % CERNER MILLENNIUM Mean Platelet Volume 9.3 9.0 - 12.0 fL CERNER MILLENNIUM Blood specimen (specimen) 03/22/2013 12:15 PM EST 03/22/2013 12:24 PM EST Narrative Resulting Agency Comment Spec In Lab Myron Cruz MD HEMATOLOGY ORDERAB LES CERAZEB LEHMANENNIUM documented in this encounter Visit Diagnoses Diagnosis Hodgkin's lymphoma Hodgkin's disease, unspecified documented in this encounter Care Teams Labor Gang Supervisor Relationship Specialty Start Date End Date Arabella Villarreal MD [address] [place] [address] PCP - General 09/16/11 documented as of this encounter
--- OUTSIDE RECORDS SUMMARY | 2024-04-07 01:41 | XMS_ITS | Encounter Summary ---
Author Organization [facility] [place] [address] Care Team Providers Care Supervisor Filtration Name Role Phone Arabella Villarreal MD Primary Care Provider [phone] Encounter Details Date Type Department Care Team (Late st Contact Info) Description 04/10/2012 12:30 PM EST Follow-Up [place]ology [place] [id number] Anamika Jorge APRN [facility] [address] [place] [address] Myron Cruz MD [facility] [place] [address] Hodgkin's lymphoma; Nausea Discharge Disposition: Home Social History Tobacco Use [...] Sign Reading Time Taken Comments Blood Pressure 110/70 04/10/2012 1:21 PM EST Pulse 74 04/10/2012 1:21 PM EST Temperature 36.7 ??C (98.1 ??F) 04/10/2012 1:21 PM ES T Respiratory Rate 16 04/10/2012 1:21 PM EST Oxygen Saturation 100% 04/10/2012 1:21 PM EST room air Inhaled Oxygen Concentration - - Weight 94.7 kg (208 lb 12.4 oz) 04/10/2012 1:21 PM EST Height 168.5 cm (5' 6.34) 04/10/2012 1:21 PM ES T Body Mass Index 33.35 04/10/2012 1:21 PM EST documented in this encounter Progress Notes * Anamika Jorge, PREP MANAGER - 04/10/2012 12:45 PM EST HEMATOLOGY FOLLOW UP NOTE Chasity Gallo is a 31 y.o. female being seen for follow-up of [...] Start Date End Date Taking? Authorizing Provider prochlorperazine (COMPAZINE) 5 mg tablet take 1 tablet by mouth every 6 hours if needed for nausea 02/26/12 Yes Anamika Jorge APRN fluconazole (DIFLUCAN) 150 mg tablet Take as directed. 02/20/12 Yes Cyndy Alfaro PREP MANAGER loratadine (CLARITIN) 10 mg tablet Take 10 mg by mouth daily. Indications: Seasonal allergies 11/20/11 Yes System, Pcp Not In lidocaine-prilocaine (EMLA) cream Apply topically. Apply liberally to mediport site 30-60 minutes prior to lab appointment, cover with dressing as instructed. 11/15/11 Yes Myron Cruz MD LORazepam (ATIVAN) 0.5 mg tablet Take 1 tablet by mouth every 6 hours as needed (Nausea). 11/13/11 Yes Cyndy Alfaro PREP MANAGER Lysine HCl 500 mg Tab Take 500 mg by mouth 2 times daily. Indications: Cold sores Yes Provider, MD Troy scopolamine (TRANSDERM-SCOP) 1.[address] 1 patch onto the skin every 72 hours. Use as needed for nausea not relieved by Zofran or Compazine. 8/21/12 Yes Myron Cruz MD ranitidine (ZANTAC) 150 mg tablet Take 150 mg by mouth daily as needed. Indications: Gastroesophageal Reflux Yes Provider, MD Troy vitamin 27 & [id number] 60 mg iron-1 mg tablet Take 1 tablet by mouth daily. Yes ProviderTroy MD zolpidem (AMBIEN) 5 mg tablet Take by mouth. Take 1-2 tablets nightly as needed for sleep. 11/22/11 03/19/12 Myron Cruz MD Allergies: Allergies Allergen Reactions ??? Other (Unclassified Drug) Nausea Only Prefilled saline syringes cause severe nausea--please draw saline flushes from vials or bags only! Interim History: Chasity Gallo is here for follow up s/p completion of C6D15 ABVD on clincal trial. She just had her port removed and is due to undergo restaging today. Unfortunately, she is feeling nauseated todayfollowing removal of her port and the effects of anesthesia made her nauseated and subsequently shevomited the contrast for her CT. Otherwise, Chasity has felt well. Recovered from URI. No recent fever or s/s infection. No n/v prior to today. Denies diarrhea/constipation; bowels have improved since completion of chemo. Energy is increasing. Eating well. Remainder of ros neg. Review of Systems: Hematological and Lymphatic ROS: negative Energy level: Improving Pain: No Appetite: improving Fevers/chills/sweats: No Bruising/bleeding/melena: No Recent infections: No Nausea/vomiting/diarrhea/constipation: No SOB/GIBSON/chest pain: No Change in adenopathy or other masses: No Unexpected weight loss or gain: weight stable Skin rashes or petechiae: no skin rashes or lesions Other systems: No peripheral neuropathy A 12-pt review of systems was performed and was otherwise negative except for above. Physical Exam: There were no vitals taken for this visit. Gen: well appearing, well developed, well nourished 31-year-old woman in no acute distress. She is accompanied to clinic by her today. HEENT: PERRL, no oral lesions, mucus membranes moist without ulcerations, hyperemia, exudative plaques or lesions. Hair returning. LN survey: no palpable cervical or supraclavicular or axillary adenopathy Chest: clear to ausculatation bilaterally; DSD over port removal site. No drainage. CV: S1S2, RRR, no murmurs, rubs, gallops Abd: soft, flat, non-tender, no palpable masses or hepatosplenomegaly. NABS. Ext: no edema Neuro: grossly intact MS: no bony tenderness Laboratory: Recent Results (from the past 24 hour(s)) CBC (WITH DIFF) Component Value Range WBC 1.9 (*) 4.0 - 10.0 (x10(3)/mcL) RBC 3.71 (*) 3.93 - 5.22 (x10(6)/mcL) Hemoglobin 11.0 (*) 11.2 - 15.7 (gm/dL) Hematocrit 32.9 (*) 34.0 - 45.0 (%) MCV 88.7 79.0 - 94.0 (fL) MCH 29.6 26.6 - 32.2 (pg) MCHC 33.4 32.0 - 36.5 (gm/dL) Platelets 259 145 - 370 (x10(3)/mcL) RDWSD 41.7 35.0 - 46.0 (fL) RDWCV 12.9 10.9 - 14.4 (%) MPV 9.0 9.0 - 12.0 (fL) COMPREHENSIVE METABOLIC PANEL (NON-FASTING) Component Value Range Glucose Lvl 97 60 - 199 (mg/dL) BUN 9 8 - 18 (mg/dL) Creatinine 0.86 0.70 - 1.20 (mg/dL) Sodium 142 135 - 145 (mmol/L) Potassium 4.1 3.5 - 5.0 (mmol/L) Chloride 107 98 - 107 (mmol/L) CO2 27 22 - 31 (mmol/L) Anion Gap 8 5 - 15 (mmol/L) Calcium 8.9 8.5 - 10.5 (mg/dL) Total Protein 6.3 (*) 6.4 - 8.3 (gm/dL) Albumin 4.2 3.2 - 5.2 (gm/dL) AST 18 0 - 30 (unit/L) ALT 16 0 - 30 (unit/L) Alk Phos 39 (*) 40 - 104 (unit/L) Total Bilirubin 0.2 0.2 - 1.3 (mg/dL) Bili, Direct <0.1 0.0 - 0.3 (mg/dL) Estimated GFR >60 >=60 SEDIMENTATION RATE Component Value Range Sed Rate 15 0 - 20 (mm/hr) DIFFERENTIAL, MANUAL Component Value Range Neutrophil % 38 34 - 71 (%) Band % 1 0 - 12 (%) Lymphocyte % 45 19 - 53 (%) Monocyte % 10 4 - 13 (%) Eosinophil % 5 0 - 7 (%) Basophil % 1 0 - 2 (%) Neutrophil Abs 0.7 (*) 1.5 - 6.3 (x10(3)/mcL) Band Abs 0.0 (*) 0.2 - 0.6 (x10(3)/mcL) Neutr Abs (ANC) 0.75 (*) 1.50 - 6.30 (x10(3)/mcL) Lymphocyte Abs 0.9 (*) 1.0 - 3.6 (x10(3)/mcL) Monocyte Abs 0.2 0.2 - 1.0 (x10(3)/mcL) Eosinophil Abs 0.1 0.0 - 0.5 (x10(3)/mcL) Basophil Abs 0.0 0.0 - 0.2 (x10(3)/mcL) Tot Diff Cell Ct 100 Plat Estimate Normal RBC Morphology Normal Radiographic: None reviewed today Assessment/Plan: 31 year old now s/p 6 cycles of ABVD on C6D15. She underwent removal of her port today and is due later on this afternoon for scans. She received 4mg po Zofran in hopes of completingthe prep. The radiologist was okay to go ahead with the CT scan despite not having a complete prep and would recommend a repeat scan if the reading was not good. Shanna wanted to go ahead with the scan. Her counts are still recovering. She knows to call immediately if she develops any s/s infection. Stage IIA HL, ABVD on study PET2 negative central review. C6D15 ABVD. --Completde treatment course on [id number] on 03/19/12. No dose modifications necessary. She was seen inconjunction with Bernice Espinoza, RN research nurse. Plan: -CT/PET today -Mediport removed; needs to monitor site for s/s infection -Follow up per protocol -Chasity will call in the interim with any concerns. Total time spent with patient: 30 minutes Time spent in counseling and coordination of care: 20 minutes Anamika Jorge APRN, AOSHAANP Section [place] [address] (phone) [phone] (fax) Cc: Arabella Villarreal MD ADDN: I reviewed our local PET scan result and there is no evidence of lymphoma, indicative of a CR. Restaging CT also shows 04/10/2012 Mediastainal Mass 3.4 x 1.1cm (measured by Dr. Cruz) #2: 1.5 x 1 7cm #3: resolved Myron Cruz MD Raw Material Plannerdesign printing machine set up operator Section of Hematology/Oncology [facility] documented in this encounter Plan of Treatment Not on file documented as of this encounter Visit Diagnoses Diagnosis Hodgkin's lymphoma Hodgkin's disease, unspecified Nausea Nausea alone documented in this encounter Administered Medications Inactive Administered Medications - up to 3 most recent administrations Medication Order MAR Action Action Date Dose Rate Site ondansetron (ZOFRAN) tablet 4 mg 4 mg, Oral, ONCE, 1 dose, On Fri04/10/12 at 1330, Routine Given 04/10/2012 1:15 PM EST 4 mg documented in this encounter Care Teams Supervisor Filtration Relationship Specialty Start Date End Date Arabella Villarreal MD [address] [place] [address] [address] [facility] [address] [place] [address] PCP - General 09/16/11 documented as of this encounter
--- OUTSIDE RECORDS SUMMARY | 2024-04-07 01:41 | XMS_ITS | Encounter Summary ---
Author Organization [facility] [place] [address] Care Team Providers Care Corrugator Operator Helper Name Role Phone Arabella Villarreal MD Primary Care Provider [phone] Encounter Details Date Type Department Care Team (Late st Contact Info) Description 02/12/2013 Orders Only Hematology [place] [address] Myron Cruz MD [facility] [address] HEMATOLOGY [place] [address] Exam for clinical research; Hodgkin's lymphoma Social History Tobacco Use Types [...] Orde r Schedule Miscellaneous Lab request Lab STAT Exam for clinical research Hodgkin's lymphoma Expected: 03/17/2013 (Approximate), Expires: 03/24/2013 documented as of this encounter Visit Diagnoses Diagnosis Exam for clinical research Examination of participant in clinical trial Hodgkin's lymphoma Hodgkin's disease, unspecified documented in this encounter Care Teams Corrugator Operator Helper Relationship Specialty Start Date End Date Arabella Villarreal MD [address] [facility] [address] [place] [address] PCP - General 09/16/11 documented as of this encounter
--- OUTSIDE RECORDS SUMMARY | 2024-04-07 01:41 | XMS_ITS | Encounter Summary ---
[place] [address] Care Team Providers Care Aquatics Instructor Name Role Phone Arabella Villarreal MD Primary Care Provider Encounter Details Date Type Department Care Team (Latest Contact Info) Description 10/01/2012 7:01 AM EDT - 10/01/2012 7:24 AM EDT Hospital [place] [address] Hodgkin's lymphoma Social History Tobacco Use Types [...] Gastroesophageal Reflux 04/02/19 23 vitamin 27 & [id number] 60 mg iron-1 mg tablet Take 1 tablet by mouth daily. 04/02/2022 documented as of this encounter Miscellaneous Notes * Miscellaneous - Provider, Scanning - 10/08/2012 10:31 AM EDT documented in this encounter Plan of Treatment Not on file documented as of this encounter Procedures Procedure Name Priority Date/Time Associated Diagnosis Comments CT CHEST ABDOMEN PELVIS W CONTRAST (GENERIC) Routine 10/01/2012 9:12 AM EDT Hodgkin's disease, unspecified documented in this encounter Results * CT chest, abdomen, & pelvis with contrast (10/01/2012 9:12 AM EDT) Anatomical Region Laterality Modality Computed Tomogra phy 10/01/2012 9:12 AM EDT Narrative 10/01/2012 11:[address] Chest / Abdomen / Pelvis With Contrast Clinical History Lymphoma study protocol patient Use bi-dimensional measurements DO NOT use RECIST criteria Hodgkin's lymphoma 6 months s/p chemotherapy completion Comparison CT chest/abdomen/pelvis on 04/10/2012. Technique A CT abdomen chest/abdomen/pelvis was obtained using 110 mL of Omnipaque 350. ?? Enteric contrast was administered. Findings Chest: ?? No pleural effusions are seen. The interstitial changes mentioned on the previous exam of the right lower lung shown an interval decrease since the previous exam. The there no intrapulmonary nodules. There is an overall decrease in mediastinal lymphadenopathy as detailed below. No axillary lymphadenopathy is seen. There is no cardiomegaly or pericardial effusion. The heart and great vessels are unremarkable. ?? Abdomen/pelvis: ?? There is mild hepatomegaly, with the liver measuring 20 centimeters in craniocaudal dimension. This is stable since the previous exam. There are multiple hypodensities seen in liver parenchyma which are unchanged from the previous study and likely represent small cysts. There is no intrahepatic ductal dilatation. The portal and hepatic veins [...] are unremarkable. There is no free fluid or free air seen in the abdominal cavity. ?? No focal lytic or osseous lesions are seen in the visualized axial spine. Lesion 1: Mediastinal lymphadenopathy ?? Previous study: S2, I 19, 44 x 21 millimeters ?? Current study: S2, I 16, 32 x 16 millimeters ?? Lesion 2: Mediastinal lymphadenopathy ?? Previous study: S2, I 26, 34 x 11 millimeters ?? Current study: S2, I 23, 32 x 9 millimeters ?? Lesion 3: Right paratracheal lymph node ?? Previous study S2, I 15, 19 x 26 millimeters ?? Current study: S2, I 12, 17 x 21 millimeters. Impression 1. Decreased mediastinal lymphadenopathy as detailed above. 2. No new lymphadenopathy is appreciated. Film and interpretation reviewed by the attending Procedure Note Braydon Ha MD - 10/01/[address] Chest / Abdomen / Pelvis With Contrast Clinical History Lymphoma study protocol patient Use bi-dimensional measurements DO NOT use RECIST criteria Hodgkin's lymphoma 6 months s/p chemotherapy completion Comparison CT chest/abdomen/pelvis on 04/10/2012. Technique A CT abdomen chest/abdomen/pelvis was obtained using 110 mL of [id number]. Enteric contrast was administered. Findings Chest: No pleural effusions are seen. The interstitial changes mentioned on the previous exam of the right lower lung shown an interval decrease since the previous exam. The there no intrapulmonary nodules. There is an overall decrease in mediastinal lymphadenopathy as detailed below. No axillary lymphadenopathy is seen. There is no cardiomegaly or pericardial effusion.The heart and great vessels are unremarkable. Abdomen/pelvis: There is mild hepatomegaly, with the liver measuring 20 centimeters in craniocaudal dimension. This is stable since the previous exam. There are multiple hypodensities seen in liver parenchyma which are unchanged fromthe previous study and likely represent small cysts. There is no intrahepatic ductal dilatation. The portal and hepatic veins are patent. Thegallbladder is unremarkable. The spleen, adrenal glands, and pancreas are unremarkable.There is a subcentimeter hypodensity in the lower pole of the left kidney whichis too small to characterize, but is unchanged in size since the previousstudy. A similar hypodensity is seen within the upper pole of the right kidney andis also unchanged. Small bowel and colon are unremarkable. No intra-abdominal lymphadenopathy is seen. The bladder, uterus and adnexa are unremarkable. There is no free fluid orfree air seen in the abdominal cavity. No focal lytic or osseous lesions are seen in the visualized axial spine. Lesion 1: Mediastinal lymphadenopathy Previous study: [...] above. 2. No new lymphadenopathy is appreciated. Film and interpretation reviewed by the attending [...] ONCE PRN, 1 dose, Starting on Marleny 10/01/12 at 0911, Until Marleny 10/01/12 at 0911, Per Protocol, Routine Given 10/01/2012 9:11 AM EDT 17,500 mg iohexol (OMNIPAQUE) 350 mg iodine/mL injection 38,500 mg 38,500 mg (110 mL), Intravenous, ONCE PRN, 1 dose, Starting on Marleny 10/01/12 at 0911, Until Marleny 10/01/12 at 0911, Per Protocol, Routine Given 10/01/2012 9:11 AM EDT 38,500 mg documented in this encounter Care Teams Aquatics Instructor Relationship Specialty Start Date End Date Arabella Villarreal MD [address] [place] [address] PCP - General 09/16/11 documented as of this encounter
--- OUTSIDE RECORDS SUMMARY | 2024-04-07 01:41 | XMS_ITS | Encounter Summary ---
Author Organization [facility] [place] [address] Care Team Providers Care Flask Pusher Name Role Phone Arabella Villarreal MD Primary Care Provider [phone] Encounter Details Date Type Department Care Team (Late st Contact Info) Description 04/15/2012 Telephone Hematology [place] [id number] Myron Cruz MD [facility] DR HEMATOLOGY [place] [address] Social History Tobacco Use Types Packs/Day Years [...] Telephone Encounter - Olga Espinoza RN - 04/15/2012 1:58 PM EST RESEARCH NURSE TELEPHONE NOTE Date: 04/15/2012 Time: 1:58 PM Reason for call: Follow-up (home) Per patient request via voicemail, residential mortgage underwriter called in follow-up to review imaging results of recent CTs and PET scan. Local readings reviewed first with Dr. Cruz, who is agreeable to residential mortgage underwriter discussing with patient via phone today. Spoke with Chasity and notified her that the local read of her CTsand PET scan were again improved, with no active lymphoma seen on the PET. Chasity requests that residential mortgage underwriter inquire about whether she could be seen in [facility] with Dr. Richmond for some of her follow-up visits (3-mo, 9 mo) during her first year of follow-up, with plans toreturn to [facility] during timepoints when she has agreed to imaging (6 mo, 12 mo). Occupational Therapy Assist to investigate and communicate with Chasity once discussed with Dr. Cruz. documented in this encounter Plan of Treatment Not on file documented as of this encounter Visit Diagnoses Not on filedocumented in this encounter Care Teams Flask Pusher Relationship Specialty Start Date End Date Arabella Villarreal MD [address] [place] [address] PCP - General 09/16/11 documented as of this encounter
--- OUTSIDE RECORDS SUMMARY | 2024-04-07 01:41 | XMS_ITS | Encounter Summary ---
[place] [address] Care Team Providers Care Chip Tuner Name Role Phone Arabella Villarreal MD Primary Care Provider [phone] Encounter Details Date Type Department Care Team (Latest Contact Info) Description 04/10/2012 1:30 PM [facility] Hospital [place] [phone] Hodgkin's lymphoma Social History Tobacco Use Types [...] Gastroesophageal Reflux 04/02/19 23 vitamin 27 & [id number] 60 mg iron-1 mg tablet Take 1 tablet by mouth daily. 04/02/2022 documented as of this encounter Plan of Treatment Not on file documented as of this encounter Procedures Procedure Name Priority Date/Time Associated Diagnosis Comments CT CHEST ABDOMEN PELVIS W CONTRAST (GENERIC) Routine 04/10/2012 2:01 PM EST Hodgkin's disease, unspecified documented in this encounter Results * CT chest, abdomen, & pelvis with contrast (04/10/2012 2:01 PM EST) Anatomical Region Laterality Modality Computed Tomogra phy 04/10/2012 2:01 PM EST Narrative 04/10/2012 2:[address] Chest / Abdomen / Pelvis With Contrast Clinical History Restaging Hodgkin's lymphoma after 6 cycles ABVD Lymphoma study protocol patient Use bi-dimensional measurements DO NOT use RECIST criteria Comparison December 06, 2011. Technique 110 mL Omnipaque 350 utilized for intravenously enhanced CT of the chest, abdomen pelvis. ??Enteric contrast was not administered. Findings Chest: The lungs have stable minimal focal increased interstitial lung markings are seen in the posterior aspect of the right lower lobe. ??Mild new increased interstitial markings are seen in the inferior aspect of the left lower lobe. ?? This may indicate early inflammation and/or pneumonia. ??No pleural effusions. The previously noted mediastinal lymphadenopathy has decreased. ??No axillary adenopathy was noted on the previous exam and there is none on today's exam. ?? No hilar adenopathy. Abdomen: The liver is stable with scattered subcentimeter hypodensities, likely small cysts. ??No biliary ductal dilatation or perihepatic fluid. ??The spleen is unremarkable. ??No hepatosplenomegaly. The pancreas, adrenal glands, gallbladder, and kidneys are normal and stable. No abdominal lymphadenopathy, free fluid or free air. Pelvis: No adenopathy, free fluid or free air. ??The pelvic soft tissues are stable. The osseous structures are unremarkable for metastasis. The following indicator sites are measured: Lesion 1: Mediastinal lymph node. Previous scan: ??Series 2, image 16, 54 x 29 mm. Present scan: ??Series 2, image 19, 44 x 21 mm. Lesion 2: ??Mediastinal lymph node. Previous scan: ??Series 2, image 24, 45 x 15 mm. Present scan: ??Series 2, image 26, 34 x 11 mm. Lesion 3: ??Right paratracheal lymph node. Previous scan: ??Series 2, image 12, 24 x 36 mm. Present scan: ??Series 2, image 15, 19 x 26 mm. Impression Decrease mediastinal lymphadenopathy, as described above. No new areas of lymphadenopathy. ?? Possible early inflammation / infection seen in left lower lobe. Procedure Note Braydon Ha MD - 04/10/[address] Chest / Abdomen / Pelvis With Contrast Clinical History Restaging Hodgkin's lymphoma after 6 cycles ABVD Lymphoma study protocol patient Use bi-dimensional measurements DO NOT use RECIST criteria Comparison December 06, 2011. Technique 110 mL Omnipaque 350 utilized for intravenously enhanced CT of the chest, abdomen pelvis. Enteric contrast was not administered. Findings Chest: The lungs have stable minimal focal increased interstitial lung markingsare seen in the posterior aspect of the right lower lobe. Mild new increased interstitial markings are seen in the inferior aspect of the left lowerlobe. This may indicate early inflammation and/or pneumonia. No pleuraleffusions. The previously noted mediastinal lymphadenopathy has decreased. Noaxillary adenopathy was noted on the previous exam and there is none on today'sexam. No hilar adenopathy. Abdomen: The liver is stable with scattered subcentimeter hypodensities, likelysmall cysts. No biliary ductal dilatation or perihepatic fluid. The spleen is unremarkable. No hepatosplenomegaly. The pancreas, adrenal glands, gallbladder, and kidneys are normal andstable. No abdominal lymphadenopathy, free fluid or free air. Pelvis: No adenopathy, free fluid or free air. The pelvic soft tissues arestable. The osseous structures are unremarkable for metastasis. The following indicator sites are measured: Lesion 1: Mediastinal lymph node. Previous scan: Series 2, image 16, 54 x 29 mm. Present scan: Series 2, image 19, 44 x 21 mm. Lesion 2: Mediastinal lymph node. Previous scan: Series 2, image 24, 45 x 15 mm. Present scan: Series 2, image 26, 34 x 11 mm. Lesion 3: Right paratracheal lymph node. Previous scan: Series 2, image 12, 24 x 36 mm. Present scan: Series 2, image 15, 19 x 26 mm. Impression Decrease mediastinal lymphadenopathy, as described above. No new areas of lymphadenopathy. Possible early inflammation / infection seen in left lower lobe. Myron Cruz MD IMG CT ORDERABLES documented in this encounter Visit Diagnoses Diagnosis Hodgkin's lymphoma Hodgkin's disease, unspecified documented in this encounter Administered Medications Inactive Administered Medications - up to 3 most recent administrations Medication Order MAR Action Action Date Dose Rate Site iohexol (OMNIPAQUE) 350 mg iodine/mL injection 17,500 mg 17,500 mg (50 mL), Oral, ONCE PRN, 1 dose, Starting on Fri04/10/12 at 1340, Until Fri04/10/12 at 1100, Per Protocol, Routine Given 04/10/2012 11:00 AM EST 17,500 mg iohexol (OMNIPAQUE) 350 mg iodine/mL injection 38,500 mg 38,500 mg (110 mL), Intravenous, ONCE PRN, 1 dose, Starting on Fri04/10/12 at 1340, Until Fri04/10/12 at 1357, Per Protocol, Routine Given 04/10/2012 1:57 PM EST 38,500 mg documented in this encounter Care Teams Chip Tuner Relationship Specialty Start Date End Date Dobbertin, Arabella, MD [address] [place] [address] PCP - General 09/16/11 documented as of this encounter
--- OUTSIDE RECORDS SUMMARY | 2024-04-07 01:41 | XMS_ITS | Encounter Summary ---
Author Organization [facility] [place] [facility] [place] [address] Care Team Providers Care Utilization Management Nurse Name Role Phone Arabella Villarreal MD Primary Care Provider [phone] Encounter Details Date Type Department Care Team (Late st Contact Info) Description 03/18/2012 Telephone Hematology [place] [phone] Myron Cruz MD [facility] DR HEMATOLOGY [place] [address] Social History Tobacco Use Types Packs/Day Years [...] Telephone Encounter - Olga Espinoza RN - 03/18/2012 4:55 PM EST RESEARCH NURSE TELEPHONE NOTE [id number]: Phase II Trial of Response-Adapted Therapy Based on Positron Emission Tomography (PET) for Bulky Stage I and Stage II Classical Hodgkin Lymphoma (HL) Date: 03/17/2012 Time: 7:38 AM Received voicemail from patient, stating that she has developed upper respiratory symptoms of congestion and a runny nose and therefore is home from work sick today. Denies any fevers since symptoms started, although she did awaken from sleep drenched in sweat on a single occasion during the night. Taking temperature regularly. Return call placed to Chasity on 03/18/12 @ 1700. Chasity states that she is feeling better as of today, with improvement to energy and symptoms. Endorses a dry, scratchy throat and sneezing. Afebrile, no further episodes of awakening in sweat. Chasity states that she has been having loose stools over the past two weeks, originally occuring with urgency and approximately 2-3 times daily. Currently bowel movements are loose, but occuring once per day. Chasity states that she feels ready for her last chemotherapy treatment tomorrow and is anxious to be done with chemo. Plan: 1. Pt will continue on study [id number] per protocol. 2. Next visit ([id number]) scheduled for 03/19/12 to include: Labs, MD/ROAD MACHINE RUNNER evaluation, and ABVD treatment per protocol. Patient verbalizes understanding of, and agreement with, plan. Advised to contact this office for any questions/concerns, as well as for any new or worsening symptoms. documented in this encounter Plan of Treatment Not on file documented as of this encounter Visit Diagnoses Not on filedocumented in this encounter Care Teams Utilization Management Nurse Relationship Specialty Start Date End Date Arabella Villarreal MD [address] [place] [address] [address] PCP - General 09/16/11 documented as of this encounter
--- OUTSIDE RECORDS SUMMARY | 2024-04-07 01:41 | XMS_ITS | Encounter Summary ---
Author Organization [facility] [place] [address] Care Team Providers Care Cnc Operator Programmer Name Role Phone Arabella Villarreal MD Primary Care Provider [phone] Encounter Details Date Type Department Care Team (Latest Contact Info) Description 07/24/2012 8:31 AM EDT - 07/24/2012 11:59 PM EDT Hospital Encounter Hematology [place] [address] Myron Cruz MD [facility] DR HEMATOLOGY [place] [address] Hodgkin's lymphoma Discharge Disposition: Home Social History [...] Gastroesophageal Reflux 04/02/19 23 vitamin 27 & [id number] 60 mg iron-1 mg tablet Take 1 tablet by mouth daily. 04/02/2022 documented as of this encounter Plan of Treatment Scheduled Orders Name Type Priority Associated Diagnoses Orde r Schedule Miscellaneous Lab request Lab Routine Hodgkin's lymphoma 1 Occurrences starting 07/24/2012 documented as of this encounter Visit Diagnoses Diagnosis Hodgkin's lymphoma Hodgkin's disease, unspecified documented in this encounter Care Teams Cnc Operator Programmer Relationship Specialty Start Date End Date Arabella Villarreal MD [address] [place] [address] PCP - General 09/16/11 documented as of this encounter
--- OUTSIDE RECORDS SUMMARY | 2024-04-07 01:41 | XMS_ITS | Encounter Summary ---
Author Organization [facility] [place] [address] Care Team Providers Care Poultry Hanger Name Role Phone Arabella Villarreal MD Primary Care Provider [phone] Encounter Details Date Type Department Care Team (Late st Contact Info) Description 07/24/2012 9:30 AM EDT Follow-Up [place] [phone] Myron Cruz MD [facility] [address] [place] [address] Hodgkin's lymphoma (Primary Dx) Discharge Disposition: Home Social History [...] Sign Reading Time Taken Comments Blood Pressure 115/65 07/24/2012 9:05 AM EDT Pulse 57 07/24/2012 9:05 AM EDT Temperature 36.4 ??C (97.5 ??F) 07/24/2012 9:05 AM ED T Respiratory Rate 16 07/24/2012 9:05 AM EDT Oxygen Saturation 100% 07/24/2012 9:05 AM EDT Inhaled Oxygen Concentration - - Weight 91.2 kg (201 lb 1 oz) 07/24/2012 9:05 AM EDT Height 169 cm (5' 6.54) 07/24/2012 9:05 AM EDT Body Mass Index 31.93 07/24/2012 9:05 AM EDT documented in this encounter Progress Notes * Myron Cruz MD - 07/24/2012 9:44 AM EDT HEMATOLOGY FOLLOW UP NOTE Chasity [...] to Visit Medication Sig Dispense Refill ??? DISCONTD: fluconazole (DIFLUCAN) 150 mg tablet Take as directed. 4 tablet 0 ??? loratadine (CLARITIN) 10 mg tablet Take 10 mg by mouth daily. Indications: Seasonal allergies ??? ranitidine (ZANTAC) 150 mg tablet Take 150 mg by mouth daily as needed. Indications: Gastroesophageal Reflux ? ? vitamin 27 & [id number] 60 mg iron-1 mg tablet Take 1 tablet by mouth daily. ??? DISCONTD: prochlorperazine (COMPAZINE) 5 mg tablet take 1 tablet by mouth every 6 hours if needed for nausea 30 tablet 2 ??? DISCONTD: lidocaine-prilocaine (EMLA) cream Apply topically. Apply liberally to [facility] site 30-60 minutes prior to lab appointment, cover with dressing as instructed. 30 g 2 ??? DISCONTD: LORazepam (ATIVAN) 0.5 mg tablet Take 1 tablet by mouth every 6 hours as needed (Nausea). 50 tablet 3 ??? Lysine HCl 500 mg Tab Take 500 mg by mouth 2 times daily. Indications: Cold sores ??? DISCONTD: scopolamine (TRANSDERM-SCOP) 1.[address] 1 patch onto the skin every 72 hours. Use as needed for nausea not relieved by Zofran or Compazine. 10 patch 12 Current Facility-Administered Medications on File Prior to [...] here for follow up s/p completion of ABVD on protocol, no radiation. Denies nausea. Hand cramps/muscle soreness--someone thought she had neuropathy. Right hand. Hair growing back. Denies head aches. Denies abd symptoms--taking ranitidine. C6D15 ABVD on clincal trial. She just had her port removed and is due to undergo restaging today. Unfortunately, she is feeling nauseated today following removal of her port and the effects of anesthesia made her nauseated and subsequently she vomited the contrast for her CT. Otherwise, Chasity hasfelt well. Recovered from URI. No recent fever or s/s infection. No n/v prior to today. Denies diarr hea/constipation; bowels have improved since completion of chemo. [...] negative except for above. Physical Exam: BP 115/65 Pulse 57 Temp(Src) 36.4 ??C (97.5 ??F) (Oral) Resp 16 Ht 169 cm (5' 6.54) Wt 91.2 kg (201 lb 1 oz) BMI 31.93 kg/m2 SpO2 100% Gen: well appearing, well [...] CBC (WITH DIFF) Component Value Range WBC 3.3 (*) 4.0 - 10.0 x10(3)/mcL RBC 4.11 3.93 - 5.22 x10(6)/mcL Hemoglobin 12.0 11.2 - 15.7 gm/dL Hematocrit 36.4 34.0 - 45.0 % MCV 88.6 79.0 - 94.0 fL MCH 29.2 26.6 - 32.2 pg MCHC 33.0 32.0 - 36.5 gm/dL Platelets 253 145 - 370 x10(3)/mcL RDWSD 39.6 35.0 - 46.0 fL RDWCV 12.3 10.9 - 14.4 % MPV 9.1 9.0 - 12.0 fL COMPREHENSIVE METABOLIC PANEL (NON-FASTING) Component Value Range Glucose Lvl 75 60 - 199 mg/dL BUN 11 8 - 18 mg/dL Creatinine 0.75 0.70 - 1.20 mg/dL Sodium 139 135 - 145 mmol/L Potassium 4.0 3.5 - 5.0 mmol/L Chloride 104 98 - 107 mmol/L CO2 25 22 - 31 mmol/L Anion Gap 10 5 - 15 mmol/L Calcium 9.1 8.5 - 10.5 mg/dL Total Protein 6.5 6.4 - 8.3 gm/dL Albumin 4.3 3.2 - 5.2 gm/dL AST 13 0 - 30 unit/L ALT 11 0 - 30 unit/L Alk Phos 42 40 - 104 unit/L Total Bilirubin 0.3 0.2 - 1.3 mg/dL Bili, Direct 0.1 0.0 - 0.3 mg/dL Estimated GFR >60 >=60 DIFFERENTIAL, AUTOMATED Component Value Range Neutrophils % 63.1 34.0 - 71.0 % Neutr Abs (ANC) 2.10 1.50 - 6.30 x10(3)/mcL Lymphocytes % 21.3 19.0 - 53.0 % Lymphocytes Abs 0.7 (*) 1.0 - 3.6 x10(3)/mcL Monocytes % 9.0 4.0 - 13.0 % Monocyte Abs 0.3 0.2 - 1.0 x10(3)/mcL Eosinophils % 5.4 0.0 - 7.0 % Eosinophils Abs 0.2 0.0 - 0.5 x10(3)/mcL Basophils % 1.2 0.0 - 2.0 % Basophils Abs 0.0 0.0 - 0.2 x10(3)/mcL Immature Gran % 0.00 0.00 - 0.66 % Maryann Gran Abs 0.00 0.00 - 0.05 x10(3)/mcL Radiographic: None reviewed today Assessment/Plan: 31 year old now s/p 6 cycles of ABVD Stage IIA HL, ABVD on study PET2 negative central review, ands/p 6 cycles of ABVD, last dose 03/19/2012. PET showed CR after all therapy. Now ~4 months post treatment. Plan: --no evidence of clinical relapse --sed rate normal --WBC a bit low, but ANC recovered. Still with lymphopenia. --almost back to baseline exercise capacity --counseled on fertility, avoiding conception for at least 1 year --pt feels she has adequate support, declined survivorship program --CT scans and labs in 3 months, prefer early Oct 2012. 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 off highway Section of Hematology/Oncology [facility] documented in this encounter Miscellaneous Notes * Addendum Note - Myron Cruz MD - 07/24/2012 10:23 AM EDTAddended by: MYRON CRUZ on: 07/24/2012 10:23 AM Modules accepted: Orders documented in this encounter Plan of Treatment Scheduled Orders Name Type Priority Associated Diagnoses Orde r Schedule CBC (with Diff) Lab STAT Hodgkin's lymphoma Every 3 months for 4 Occurrences starting 07/24/2012 until 07/24/2013, 3 completed Comprehensive metabolic panel (non-fasting) Lab STAT Hodgkin's lymphoma Every 3 months for 4 Occurrences starting 07/24/2012 until 07/24/2013, 3 completed Sedimentation rate Lab STAT Hodgkin's lymphoma Every 3 months for 4 Occurrences starting 07/24/2012 until 07/24/2013, 3 completed documented as of this encounter Procedures Procedure Name Priority Date/Time Associated Diagnosis Comments DIFFERENTIAL, AUTOMATED STAT 07/24/2012 9:33 AM EDT SEDIMENTATION RATE STAT 07/24/2012 9: 33 AM EDT Hodgkin's lymphoma CBC (WITH DIFF) STAT 07/24/2012 9:33 AM EDT Hodgkin's lymphoma LUTEINIZING HORMONE STAT 07/24/2012 9 :33 AM EDT Hodgkin's lymphoma FOLLICLE STIMULATING HORMONE STAT 07/24/2012 9:33 AM EDT Hodgkin's lymphoma COMPREHENSIVE METABOLIC PANEL STAT 07/24/2012 9:33 AM EDT Hodgkin's lymphoma documented in this encounter Results * Sedimentation rate (06/17/2013 9:11 AM EDT) Sedimentation Rate Automated 7 0 - 20 mm/hr [facility] Blood specimen (specimen) 06/17/2013 9:11 AM EDT 06/17/2013 9:26 AM EDT Narrative Resulting Agency Comment Spec In Lab Myron Cruz MD HEMATOLOGY ORDERAB LES [facility] * (ABNORMAL) Comprehensive metabolic panel (non-fasting) (06/17/2013 9:11 AM EDT) Pathologist [facility] Glucose 72 60 - 199 mg/dL [facility]yrENNIUM Comment:Diabetes: >=200 mg/d L plus symptoms Blood Urea Nitrogen 16 8 - 18 mg/dL [facility] MILLENNIUM Creatinine 0.80 0.70 - 1.20 mg/dL [facility] MILLENNIUM Comment: Please note that the pediatric reference intervals supplied above were not validated at [facility]. Results from pediatric patients should be interpreted in conjunction to the patient's age, height and muscle mass. Sodium 140 135 - 145 mmol/L [facility] MILLENNIUM Potassium 4.4 3.5 - 5.0 mmol/L [facility] MILLENNIUM Comment: Please note: ??Patients [...] Myron Cruz MD CHEMISTRY ORDERABL ES CERAZEB CARTER * CBC (with Diff) (06/17/2013 9:11 AM [...] Platelet Volume 9.5 9.0 - 12.0 fL [facility] MILLENNIUM Blood specimen (specimen) 06/17/2013 9:11 AM EDT 06/17/2013 9:26 AM EDT Narrative Resulting Agency Comment Spec In Lab Myron Cruz MD HEMATOLOGY ORDERAB LES Performing Organization Address City/State/[facility] Co de Phone Number [facility] RAUL * Sedimentation rate (12/24/2012 8:59 AM EDT) Sedimentation Rate Automated 7 0 - 20 mm/hr [facility]UM Blood specimen (specimen) 12/24/2012 8:59 AM EDT 12/24/2012 9:10 AM EDT Narrative Resulting Agency Comment Spec In Lab Myron Cruz MD HEMATOLOGY ORDERAB LES [facility] * (ABNORMAL) Comprehensive metabolic panel (non-fasting) (12/24/2012 8:59 AM EDT) Glucose 80 60 - 199 mg/dL [facility] MILLENNIUM Comment:Diabetes: >=200 mg/d L plus symptoms Blood Urea Nitrogen 15 8 - 18 mg/dL [facility] MILLENNIUM Creatinine 0.81 0.70 - 1.20 mg/dL CERNER MILLENNIUM Comment: Please note that the pediatric reference intervals supplied above were not validated at [facility]. Results from pediatric patients should be interpreted [...] 5 - 15 mmol/L CERNER MILLENNIUM Calcium 9.3 8.5 - 10.5 mg/dL [facility] MILLENNIUM Protein, Total 6.4 6.4 - 8.3 gm/dL [facility] MILLENNIUM Albumin 4.4 3.2 - 5.2 gm/dL [facility] MILLENNIUM Aspartate Aminotransferase 20 0 - 30 unit/L [facility] MILLENNIUM Alanine Aminotransferase 22 0 - 30 unit/L [facility] MILLENNIUM Alkaline Phosphatase 38(L) 40 - 104 unit/L [facility] MILLENNIUM Bilirubin, [...] internet browser. http://www.nkdep.nih.gov/lab-evaluation.shtml http://www.kidney.org/professionals/ Blood specimen (specimen) 12/24/2012 8:59 AM EDT 12/24/2012 9:10 AM EDT Narrative Resulting Agency Comment Spec In Lab Myron Cruz MD CHEMISTRY ORDERABL ES Performing Organization Address [facility] Co de Phone Number CERNER [place]ONENNIUM * (ABNORMAL) CBC (with Diff) (12/24/2012 8:59 AM EDT) White Blood Cell 3.3(L) 4.0 - 10.0 x10(3)/mc L [facility]ERNER MILLENNIUM Red Blood Cell 3.84(L) 3.93 - 5.22 x10(6)/mc L [facility]ERNER MILLENNIUM Hemoglobin 11.8 11.2 - 15.7 gm/dL [facility] MILLENNIUM Hematocrit 35.6 34.0 - 45.0 % [facility] MILLENNIUM Mean Cell Volume 92.7 79.0 - 94.0 fL [facility]ER MILLENNIUM Mean Cell Hemoglobin 30.7 26.6 - 32.2 pg [facility] MILLENNIUM Mean Cell Hemoglobin Concentration 33.1 32.0 - 36.5 gm/dL [facility] MILLENNIUM Platelet 225 145 - 370 x10(3)/mc L [facility]ER MILLENNIUM RDW Standard Deviation 41.6 35.0 - 46.0 fL CERNER MILLENNIUM RDW coefficient of variation 12.2 10.9 - 14.4 % CERNER MILLENNIUM Mean Platelet Volume 9.3 9.0 - 12.0 fL [facility]ER MILLENNIUM Blood specimen (specimen) 12/24/2012 8:59 AM EDT 12/24/2012 9:10 AM EDT Narrative Resulting Agency Comment Spec In Lab Myron Cruz MD HEMATOLOGY ORDERAB LES Performing Organization Address [facility]/ZIP Co de Phone Number CERAZEB LEHMANENNIUM * Sedimentation rate (10/01/2012 7:29 AM EDT) Sedimentation Rate Automated 8 0 - 20 mm/hr [facility] MILLENNIUM Blood specimen (specimen) 10/01/2012 7:29 AM EDT 10/01/2012 7:37 AM EDT Narrative Resulting Agency Comment Spec In Lab Myron Cruz MD HEMATOLOGY ORDERAB LES CERNER MILLENNIUM * (ABNORMAL) Comprehensive metabolic panel (non-fasting) (10/01/2012 7:29 AM EDT) Glucose 64 60 - 199 mg/dL CERNER MILLENNIUM Comment:Diabetes: >=200 mg/d L plus symptoms Blood Urea Nitrogen 13 8 - 18 mg/dL CERNER MILLENNIUM Creatinine 0.74 0.70 - 1.20 mg/dL CERNER MILLENNIUM Comment: Please note that the pediatric reference intervals supplied above were not validated at [facility]. Results from pediatric patients should be interpreted in conjunction to the patient's age, height and muscle mass. Sodium 140 135 - 145 mmol/L CERNER MILLENNIUM Potassium 3.8 3.5 - 5.0 mmol/L CERNER MILLENNIUM Comment: [...] MAGDALENA CARTER * (ABNORMAL) CBC (with Diff) (10/01/2012 7:29 [...] Myron Cruz MD HEMATOLOGY ORDERAB LES CERAZEB MILLENNIUM * (ABNORMAL) Differential, Automated (07/24/2012 9:33 AM EDT) Neutrophil % 63.1 34.0 - 71.0 % CERNER MILLENNIUM Neutrophil Absolute 2.10 1.50 - 6.30 x10(3)/mc L CERNER MILLENNIUM Lymph % 21.3 19.0 - 53.0 % CERNER MILLENNIUM Lymphocytes Abs 0.7(L) 1.0 - 3.6 x10(3)/mc L CERNER MILLENNIUM Monocyte % 9.0 4.0 - 13.0 % CERNER MILLENNIUM Monocyte Abs 0.3 0.2 - 1.0 x10(3)/mc L CERNER MILLENNIUM Eos % 5.4 0.0 - 7.0 % CERNER MILLENNIUM Eosinophils Abs 0.2 0.0 - 0.5 x10(3)/mc L CERNER MILLENNIUM [...] x10(3)/mc L CERNER MILLENNIUM Blood specimen (specimen) 07/24/2012 9:33 AM EDT 07/24/2012 9:40 AM EDT Myron Cruz MD HEMATOLOGY ORDERAB LES CERAZEB LEHMANENNIUM * Sedimentation rate (07/24/2012 9:33 AM EDT) Sedimentation Rate Automated 8 0 - 20 mm/hr CERNER MILLENNIUM Blood specimen (specimen) 07/24/2012 9:33 AM EDT 07/24/2012 9:40 AM EDT Narrative Resulting Agency Comment Spec In Lab Myron Cruz MD HEMATOLOGY ORDERAB LES CERNER MILLENNIUM * Comprehensive metabolic panel (non-fasting) (07/24/2012 9:33 AM EDT) [facility] Signature Glucose 75 60 - 199 mg/dL CERNER MILLENNIUM Comment:Diabetes: >=200 mg/d L plus symptoms Blood Urea Nitrogen 11 8 - 18 mg/dL CERNER MILLENNIUM Creatinine 0.75 0.70 - 1.20 mg/dL CERNER MILLENNIUM Comment: Please note that the pediatric reference intervals supplied above were not validated at [facility]. Results from pediatric patients should be interpreted [...] Laboratory if there are any questions. Chloride 104 98 - 107 mmol/L CERNER MILLENNIUM Carbon Dioxide 25 22 - 31 mmol/L CERNER MILLENNIUM Anion Gap 10 5 - 15 mmol/L CERNER MILLENNIUM Calcium 9.1 8.5 - 10.5 mg/dL CERNER MILLENNIUM Protein, Total 6.5 6.4 - 8.3 gm/dL CERNER MILLENNIUM Albumin 4.3 3.2 - 5.2 gm/dL CERNER MILLENNIUM Aspartate Aminotransferase 13 0 - 30 unit/L CERNER MILLENNIUM Alanine Aminotransferase 11 0 - 30 unit/L CERNER MILLENNIUM Alkaline Phosphatase 42 40 - 104 unit/L CERNER MILLENNIUM Bilirubin, [...] internet browser. http://www.nkdep.nih.gov/lab-evaluation.shtml http://www.kidney.org/professionals/ Blood specimen (specimen) 07/24/2012 9:33 AM EDT 07/24/2012 9:40 AM EDT Narrative Resulting Agency Comment Spec In Lab Myron Cruz MD CHEMISTRY ORDERABL ES [facility] * (ABNORMAL) CBC (with Diff) (07/24/2012 9:33 AM EDT) White Blood Cell 3.3(L) 4.0 - 10.0 x10(3)/mc L CERNER MILLENNIUM Red Blood Cell 4.11 3.93 - 5.22 x10(6)/mc L CERNER MILLENNIUM Hemoglobin 12.0 11.2 - 15.7 gm/dL CERNER MILLENNIUM Hematocrit 36.4 34.0 - 45.0 % CERNER MILLENNIUM Mean Cell Volume 88.6 79.0 - 94.0 fL CERNER MILLENNIUM Mean Cell Hemoglobin 29.2 26.6 - 32.2 pg CERNER MILLENNIUM Mean Cell Hemoglobin Concentration 33.0 32.0 - 36.5 gm/dL CERNER MILLENNIUM Platelet 253 145 - 370 x10(3)/mc L CERNER MILLENNIUM RDW Standard Deviation 39.6 35.0 - 46.0 fL CERNER MILLENNIUM RDW coefficient of variation 12.3 10.9 - 14.4 % CERNER MILLENNIUM Mean Platelet Volume 9.1 9.0 - 12.0 fL CERNER MILLENNIUM Blood specimen (specimen) 07/24/2012 9:33 AM EDT 07/24/2012 9:40 AM EDT Narrative Resulting Agency Comment Spec In Lab Myron Cruz MD HEMATOLOGY ORDERAB LES Performing Organization Address [facility] de Phone Number MAGDALENA CARTER * Luteinizing Hormone (07/24/2012 9:33 AM EDT) Luteinizing Hormone 9.5 mlU/ML CERNER MILLENNIUM Comment: Reference ranges: ?? Females ?? Follicular: ? 2.4-12.6 mIU/mL ?? Ovulation: ?14.0-95.6 mIU/mL ?? Luteal: ? 1.0-11.4 mIU/mL ?? Postmenopausal: ? 7.7-58.5 mIU/mL Blood specimen (specimen) 07/24/2012 9:33 AM EDT 07/24/2012 9:40 AM EDT Narrative Resulting Agency Comment Spec In Lab Myron Cruz MD CHEMISTRY ORDERABL ES Performing Organization Address [facility] de Phone Number MAGDALENA SARMIENTOIUM * Follicle Stimulating Hormone (07/24/2012 9:33 AM EDT) Follicle Stimulating Hormone 13.1 mlU/ML CERNER MILLENNIUM Comment: Reference Ranges: Females: Follicular: ? 3.5-12.5 mIU/mL Ovulation: ?4.7-21.5 mIU/mL Luteal: ? 1.7-7.7 mIU/mL Postmenopausal: 25.8-134.8 mIU/mL Blood specimen (specimen) 07/24/2012 9:33 AM EDT 07/24/2012 9:40 AM EDT Narrative Resulting Agency Comment Spec In Lab Myron Cruz MD CHEMISTRY ORDERABL ES Performing Organization Address [facility] de Phone Number MAGDALENA CARTER documented in this encounter Visit Diagnoses Diagnosis Hodgkin's lymphoma- Primary Hodgkin's disease, unspecified documented in this encounter Care Teams Poultry Hanger Relationship Specialty Start Date End Date Arabella Villarreal MD [address] [facility] [address] [place] [address] PCP - General 09/16/11 documented as of this encounter
--- OUTSIDE RECORDS SUMMARY | 2024-04-07 01:41 | XMS_ITS | Encounter Summary ---
[place] [address] Care Team Providers Care Engineering Assistant Name Role Phone Arabella Villarreal MD Primary Care Provider Encounter Details Date Type Department Care Team (Late st Contact Info) Description 12/24/2012 9:00 AM EDT Office Visit Hematology [place] [id number] Social History Tobacco Use Types Packs/Day Years [...] on filedocumented in this encounter Care Teams Engineering Assistant Relationship Specialty Start Date End Date Arabella Villarreal MD [address] [place], [place] [id number] PCP - General 09/16/11 documented as of this encounter
--- OUTSIDE RECORDS SUMMARY | 2024-04-07 01:41 | XMS_ITS | Encounter Summary ---
[place] [address] Care Team Providers Care Business Management Consultant Name Role Phone Arabella Villarreal MD Primary Care Provider [phone] Encounter Details Date Type Department Care Team (Late st Contact Info) Description 04/10/2012 8:35 AM EST Clinical Support [facility] [phone] Social History Tobacco Use Types Packs/Day Years [...] on filedocumented in this encounter Care Teams Business Management Consultant Relationship Specialty Start Date End Date Arabella Villarreal MD [address] [place], [place] [id number] PCP - General 09/16/11 documented as of this encounter
--- OUTSIDE RECORDS SUMMARY | 2024-04-07 01:41 | XMS_ITS | Encounter Summary ---
Author Organization [facility] [place] [address] Care Team Providers Care Director Of Healthcare Systems Name Role Phone Arabella Villarreal MD Primary Care Provider [phone] Reason for Visit * Reason Comments Follow-up Chemotherapy Encounter Details Date Type Department Care Team (Late st Contact Info) Description 03/19/2012 9:00 AM EST Follow-Up Hematology [place] [address] Myron Cruz MD [facility] [address] HEMATOLOGY [place] [address] Hodgkin lymphoma (Primary Dx) Discharge Disposition: Home Social [...] Sign Reading Time Taken Comments Blood Pressure 117/66 03/19/2012 8:43 AM EST Pulse 84 03/19/2012 8:43 AM EST Temperature 36.3 ??C (97.3 ??F) 03/19/2012 8:43 AM ES T Respiratory Rate 18 03/19/2012 8:43 AM EST Oxygen Saturation 98% 03/19/2012 8:43 AM EST Inhaled Oxygen Concentration - - Weight 93.9 kg (207 lb 0.2 oz) 03/19/2012 8:43 A M EST Height 168.5 cm (5' 6.34) 03/19/2012 8:43 AM ES T Body Mass Index 33.07 03/19/2012 8:43 AM EST documented in this encounter Progress Notes * Cyndy Alfaro, LEAD PHP DEVELOPER - 03/19/2012 8:59 AM EST HEMATOLOGY FOLLOW UP NOTE Chasity [...] Cruz) #2: 2.2 x 2.8 #3: resolved Col Date: 09/25/2011 SURGICAL PATHOLOGY [...] Take as directed. 02/20/12 Yes Cyndy Alfaro APRN loratadine (CLARITIN) 10 mg tablet Take 10 [...] as needed (Nausea). 11/13/11 Yes Cyndy Alfaro APRN Lysine HCl 500 mg Tab Take 500 mg by mouth 2 times daily. Indications: Cold sores Yes ProviderTroy MD scopolamine (TRANSDERM-SCOP) 1.[address] 1 patch onto the skin every 72 hours. Use as needed for nausea not relieved by Zofran or Compazine. 10/22/11 Yes Myron Cruz MD ranitidine (ZANTAC) 150 mg tablet Take 150 mg by mouth daily as needed. Indications: Gastroesophageal Reflux Yes ProviderTroy MD vitamin 27 & [id number]-[id number] 60 mg iron-1 mg tablet Take 1 tablet by mouth daily. Yes Troy Kendall MD zolpidem (AMBIEN) 5 mg tablet Take by mouth. Take 1-2 tablets nightly as needed for sleep. 11/22/11 03/19/12 Myron Cruz MD Allergies: Allergies Allergen Reactions ??? Other (Unclassified Drug) Nausea Only Prefilled saline syringes cause severe nausea--please draw saline flushes from vials or bags only! Interim History: Chasity Gallo is here for C6D15 ABVD on clincal trial. Since her last visit, Chasity reports tolerating her chemotherapy without new side effects. She continues to experience nausea for a few days following chemotherapy which is easily managed with Compazine, massage and relaxation therapy which improve in 3-4 days. She reports a gastroenteritis presenting with increase in urgency and frequencyof loose stool. Some abdominal cramping associated as well. Chasity used a single dose of OTC antidiarrheal and symptoms have since resolved. More recently, Chasity reports URI symptoms sinus congestion, headache, rhinorrhea, dry throat, slight cough and increased fatigue. She awoke on Friday morning feeling damp which she attributes to breaking a fever. No recurrence of fevers, chills, sweats since that time. All other symptoms have improved. She took an extra day off last week Friday and recuperated over the weekend. No further heartburn or chest pressure with daily Zantac. No new health-related concerns. She is anxious to be done with therapy today and looking forward to a celebration at the end of April. Review of Systems: Hematological and Lymphatic ROS: negative Energy level: waxes and wanes with the cycle Pain: No Appetite: up and down with taste changes. Fevers/chills/sweats: No Bruising/bleeding/melena: No Recent infections: as noted above Nausea/vomiting/diarrhea/constipation: as noted above SOB/GIBSON/chest pain: No Change in adenopathy or other masses: No Unexpected weight loss or gain: weight stable Skin rashes or petechiae: no skin rashes or lesions Other systems: No peripheral neuropathy A 12-pt review of systems was performed and was otherwise negative except for above. Physical Exam: BP 117/66 Pulse 84 Temp(Src) 36.3 ??C (97.3 ??F) (Oral) Resp 18 Ht 168.5 cm (5' 6.34) Wt93.9 kg (207 lb 0.2 oz) BMI 33.07 kg/m2 SpO2 98% Gen: well appearing, well developed, well nourished 31-year-old woman in no acute distress. She is accompanied to clinic by her aunt today. HEENT: PERRL, no oral lesions, mucus membranes moist without ulcerations, hyperemia, exudative plaques or lesions. Alopecia near complete LN survey: no palpable cervical or supraclavicular adenopathy Chest: clear to ausculatation bilaterally; Port accessed in right upper chest wall without tenderness on palpation or erythema. CV: S1S2, RRR, no murmurs, rubs, gallops Abd: soft, flat, non-tender, no palpable masses or hepatosplenomegaly. NABS. Ext: no edema Neuro: grossly intact MS: no bony tenderness Laboratory: Recent Results (from the past 72 hour(s)) CBC (WITH DIFF) Component Value Range WBC 1.5 (*) 4.0 - 10.0 (x10(3)/mcL) RBC 3.71 (*) 3.93 - 5.22 (x10(6)/mcL) Hemoglobin 11.2 11.2 - 15.7 (gm/dL) Hematocrit 33.5 (*) 34.0 - 45.0 (%) MCV 90.3 79.0 - 94.0 (fL) MCH 30.2 26.6 - 32.2 (pg) MCHC 33.4 32.0 - 36.5 (gm/dL) Platelets 341 145 - 370 (x10(3)/mcL) RDWSD 41.9 35.0 - 46.0 (fL) RDWCV 12.8 10.9 - 14.4 (%) MPV 9.0 9.0 - 12.0 (fL) NUCLEATED RED BLOOD CELLS Component Value Range nRBC % Auto 0.0 0.0 - 0.2 (%) nRBC Abs Auto 0.000 0.000 - 0.012 (x10(3)/mcL) DIFFERENTIAL, MANUAL Component Value Range Neutrophil % 32 (*) 34 - 71 (%) Band % 3 0 - 12 (%) Lymphocyte % 41 19 - 53 (%) Monocyte % 17 (*) 4 - 13 (%) Eosinophil % 4 0 - 7 (%) Basophil % 3 (*) 0 - 2 (%) Neutrophil Abs 0.5 (*) 1.5 - 6.3 (x10(3)/mcL) Band Abs 0.0 (*) 0.2 - 0.6 (x10(3)/mcL) Neutr Abs (ANC) 0.52 (*) 1.50 - 6.30 (x10(3)/mcL) Lymphocyte Abs 0.6 (*) 1.0 - 3.6 (x10(3)/mcL) Monocyte Abs 0.2 0.2 - 1.0 (x10(3)/mcL) Eosinophil Abs 0.1 0.0 - 0.5 (x10(3)/mcL) Basophil Abs 0.0 0.0 - 0.2 (x10(3)/mcL) Tot Diff Cell Ct 100 Plat Estimate Normal RBC Morphology Normal Radiographic: None reviewed today Assessment/Plan: Stage IIA HL, ABVD on study PET2 negative central review. C6D15 ABVD. --Complete treatment course as scheduled today on [id number]. No dose modifications necessary. --As in prior cycles, will give Aloxi and Emend today and continue with scopolamine patch changing it in 48 hours to cover through day 7 for delayed nausea. Compazine for breakthrough nausea and Ativan for stress, insomnia. --Continue daily antacid/PPI therapy for 2-4 weeks following completion of therapy as resolution ofGI side effects --I reviewed protocol specific restaging with her and f/u as mandated by the protocol. RTC on 04/10/12 for restaging and port removal. Chasity is aware that we remain available in the interim should questions/concerns arise. Total time spent with patient: 30 minutes Time spent in counseling and coordination of care: 20 minutes Cyndy Alfaro, MSN, LEAD PHP DEVELOPER Nurse Practitioner Section of Hematology/Oncology [facility] Cc: Arabella Villarreal MD documented in this encounter Plan of Treatment Not on file documented as of this encounter Visit Diagnoses Diagnosis Hodgkin lymphoma- Primary Hodgkin's disease, unspecified documented in this encounter Care Teams Director Of Healthcare Systems Relationship Specialty Start Date End Date Arabella Villarreal MD [address] [place] [address] PCP - General 09/16/11 documented as of this encounter
--- OUTSIDE RECORDS SUMMARY | 2024-04-07 01:41 | XMS_ITS | Encounter Summary ---
Author Organization [facility] [place] [address] Care Team Providers Care Blade Aligner Name Role Phone Arabella Villarreal MD Primary Care Provider Encounter Details Date Type Department Care Team (Late st Contact Info) Description 02/18/2013 Orders Only Hematology [place] [address] Myron Cruz MD [facility] [place] [address] Social History Tobacco Use Types Packs/Day Years [...] on filedocumented in this encounter Care Teams Blade Aligner Relationship Specialty Start Date End Date Arabella Villarreal MD [address] [place], [place] [phone] PCP - General 09/16/11 documented as of this encounter
--- OUTSIDE RECORDS SUMMARY | 2024-04-07 01:41 | XMS_ITS | Encounter Summary ---
[place] [address] Care Team Providers Care Dust Operator Name Role Phone Arabella Villarreal MD Primary Care Provider Encounter Details Date Type Department Care Team (Late st Contact Info) Description 04/10/2012 11:05 AM EST Clinical Support [facility] [place] [phone] Social History Tobacco Use Types Packs/Day Years [...] on filedocumented in this encounter Care Teams Dust Operator Relationship Specialty Start Date End Date Arabella Villarreal MD [address] [place], [place] [phone] PCP - General 09/16/11 documented as of this encounter
--- OUTSIDE RECORDS SUMMARY | 2024-04-07 01:41 | XMS_ITS | Encounter Summary ---
Author Organization [facility] [place] [address] Care Team Providers Care Bulk Sugar Handler Name Role Phone Arabella Villarreal MD Primary Care Provider [phone] Encounter Details Date Type Department Care Team (Late st Contact Info) Description 07/28/2012 Telephone Hematology [place] [phone] Myron Cruz MD [facility] DR HEMATOLOGY [place] [address] Social History Tobacco Use Types Packs/Day Years [...] Telephone Encounter - Olga Espinoza RN - 07/28/2012 5:48 PM EDT RESEARCH NURSE TELEPHONE NOTE [id number]: Phase II Trial of Response-Adapted Therapy Based on Positron Emission Tomography (PET) for Bulky Stage I and Stage II Classical Hodgkin Lymphoma (HL) Date: 07/28/2012 Reason for call: Lab results (home) Called and spoke with Chasity in follow-up to lab results. Chasity notified that FSH and LH are WNLand are not concerning per discussion with Dr. Cruz. Chasity verbalizes understanding and appreciation of call. documented in this encounter Plan of Treatment Not on file documented as of this encounter Visit Diagnoses Not on filedocumented in this encounter Care Teams Bulk Sugar Handler Relationship Specialty Start Date End Date Arabella Villarreal MD [address] [place] [address] PCP - General 09/16/11 documented as of this encounter
--- OUTSIDE RECORDS SUMMARY | 2024-04-07 01:41 | XMS_ITS | Encounter Summary ---
Author Organization [facility] [place] [address] Care Team Providers Care Column Precaster Name Role Phone Arabella Villarreal MD Primary Care Provider [phone] Encounter Details Date Type Department Care Team (Late st Contact Info) Description 05/05/2012 Telephone Hematology [place] [phone] Myron Cruz MD [facility] [address] [place] [address] Social History Tobacco Use Types Packs/Day Years [...] Addendum Note - Olga Espinoza RN - 07/24/2012 9:08 AM EDTAddended by: OLGA ESPINOZA on: 07/24/2012 09:08 AM Modules accepted: Orders * Addendum Note - Olga Espinoza RN - 05/05/2012 5:20 PM ESTAddended by: OLGA ESPINOZA on: 05/05/2012 05:20 PM Modules accepted: Orders * Telephone Encounter - Olga Espinoza RN - 05/05/2012 4:53 PM EST RESEARCH NURSE TELEPHONE NOTE [id number]: Phase II Trial of Response-Adapted Therapy Based on Positron Emission Tomography (PET) for Bulky Stage I and Stage II Classical Hodgkin Lymphoma (HL) Date: 05/05/2012 Time: 4:53 PM Reason for call: Follow-up regarding 3 month appointments (home) Called and spoke with patient in regards to her request to forgo 3 month follow- up appointment (duein July 2012) and Dr. Cruz's response encouraging patient not to miss this appointment. Chasity requests that 3 month follow-up be scheduled for the AM on 07/24/12. Chasity states that she feelinggenerally ok, except for feeling irritated that she has not had a menstrual period since 02/14/12. Reports that she is feeling hormonal and awakens feeling as if she is going to start her period,but has not as of yet. Has taken a recent test, which she reports was negative. Chasity states that she has not seen her PCP in regards to this, due to her busy schedule. Education Provided: Support and reassurance offered, including plan to discuss with MD to see if serum hormone level studies would be useful in this situation. Plan: 1. Pt will continue on study [id number] per protocol. 2. Next visit (3 mo followup) to be scheduled for 07/24/12 to include: Labs, MD/CORE CARRIER visit. (Patientcontinues to decline CT scans for this timepoint.) Patient verbalizes understanding of, and agreement with, plan. Advised to contact this office for any questions/concerns, as well as for any new or worsening symptoms. documented in this encounter Plan of Treatment Scheduled Orders Name Type Priority Associated Diagnoses Orde r Schedule Miscellaneous Lab request Lab Routine Hodgkin's lymphoma Expected: 2012 (Approximate), Expires: 08/08/2012 documented as of this encounter Results * Sedimentation rate (07/24/2012 9:33 AM EDT) Sedimentation Rate Automated 8 0 - 20 mm/hr [facility] Blood specimen (specimen) 07/24/2012 9:33 AM EDT 07/24/2012 9:40 AM EDT Narrative Resulting Agency Comment Spec In Lab Myron Cruz MD HEMATOLOGY ORDERAB LES [facility]ILLENNI[facility] * Comprehensive metabolic panel (non-fasting) (07/24/2012 9:33 AM EDT) Glucose 75 60 - 199 mg/dL [facility] MILLENNIUM Comment:Diabetes: >=200 mg/d L plus symptoms Blood Urea Nitrogen 11 8 - 18 mg/dL [facility] MILLENNIUM Creatinine 0.75 0.70 - 1.20 mg/dL [facility] MILLENNIUM Comment: Please note that the pediatric reference intervals supplied above were not validated at [facility]. Results from pediatric patients should be interpreted [...] Lab Myron Cruz MD CHEMISTRY ORDERABL ES [facility] * (ABNORMAL) CBC (with Diff) (07/24/2012 [...] Standard Deviation 39.6 35.0 - 46.0 fL [facility] RDW coefficient of variation 12.3 10.9 - 14.4 % [facility]ERN[facility] MILLENNIUM Mean Platelet Volume 9.1 9.0 - 12.0 fL [facility]ERN[facility] MILLENNIUM Blood specimen (specimen) 07/24/2012 9:33 AM EDT 07/24/2012 9:40 AM EDT Narrative Resulting Agency Comment Spec In Lab Myron Cruz MD HEMATOLOGY ORDERAB LES Performing Organization Address [facility] de Phone Number [facility] * Luteinizing Hormone (07/24/2012 9:33 AM EDT) Luteinizing Hormone 9.5 mlU/ML [facility] Comment: Reference ranges: ?? Females ?? Follicular: ? 2.4-12.6 mIU/mL ?? Ovulation: ?14.0-95.6 mIU/mL ?? Luteal: ? 1.0-11.4 mIU/mL ?? Postmenopausal: ? 7.7-58.5 mIU/mL Blood specimen (specimen) 07/24/2012 9:33 AM EDT 07/24/2012 9:40 AM EDT Narrative Resulting Agency Comment Spec In Lab Myron Cruz MD CHEMISTRY ORDERABL ES Performing Organization Address [facility] de Phone Number [facility] * Follicle Stimulating Hormone (07/24/2012 9:33 AM EDT) Follicle Stimulating Hormone 13.1 mlU/ML [facility] Comment: Reference Ranges: Females: Follicular: ? 3.5-12.5 mIU/mL Ovulation: ?4.7-21.5 mIU/mL Luteal: ? 1.7-7.7 mIU/mL Postmenopausal: 25.8-134.8 mIU/mL Blood specimen (specimen) 07/24/2012 9:33 AM EDT 07/24/2012 9:40 AM EDT Narrative Resulting Agency Comment Spec In Lab Myron Cruz MD CHEMISTRY ORDERABL ES [facility] documented in this encounter Visit Diagnoses Diagnosis Hodgkin's lymphoma- Primary Hodgkin's disease, unspecified documented in this encounter Care Teams Column Precaster Relationship Specialty Start Date End Date Arabella Villarreal MD [address] [place] [address] PCP - General 09/16/11 documented as of this encounter
--- OUTSIDE RECORDS SUMMARY | 2024-04-07 01:41 | XMS_ITS | Encounter Summary ---
[place] [address] Care Team Providers Care Enroute Controller Name Role Phone Arabella Villarreal MD Primary Care Provider [phone] Encounter Details Date Type Department Care Team (Late st Contact Info) Description 04/10/2012 1:00 PM EST Clinical Support [facility] [place] [phone] Social History Tobacco Use Types Packs/Day Years [...] on filedocumented in this encounter Care Teams Enroute Controller Relationship Specialty Start Date End Date Arabella Villarreal MD [address] [place], [place] [phone] PCP - General 09/16/11 documented as of this encounter
--- OUTSIDE RECORDS SUMMARY | 2024-04-07 01:41 | XMS_ITS | Encounter Summary ---
Author Organization [facility] [place] [address] Care Team Providers Care Concrete Wall Grinder Operator Name Role Phone Arabella Villarreal MD Primary Care Provider [phone] Encounter Details Date Type Department Care Team (Latest Contact Info) Description 04/10/2012 8:31 AM EST - 04/10/2012 11:59 PM EST Hospital [place] [id number] CLINIC, Myron Denney MD [facility] [place] [address] Hodgkin's lymphoma Discharge Disposition: Home Social History [...] Sign Reading Time Taken Comments Blood Pressure 119/76 04/10/2012 11:37 AM EST Pulse 69 04/10/2012 11:37 AM EST Temperature 36.2 ??C (97.1 ??F) 04/10/2012 11:[address] Respiratory Rate 18 04/10/2012 11:37 AM EST Oxygen Saturation 97% 04/10/2012 11:37 AM EST Inhaled Oxygen Concentration - - Weight - - Height - - Body Mass Index - - documented in this encounter Discharge Instructions * Discharge Instructions* Christelle Wolf, RN - 04/10/2012 11:21 AM EST [facility] Vascular and Interventional Radiology Discharge Instructions for your Chest Port Removal Activity: Relax for the next 24 hours Diet: Drink plenty of fluids. Resume your regular diet Bandage: There is a sterile dressing consisting of small gauze with a clear dressing (Tegaderm or IV 3000). This dressing should be left in place for 48 hours. If the clear dressing becomes loose youshould place tape over the edges to secure it in place. No tub baths, swimming or whirlpools for 1 week. No showering for 48 hours. Note: If you have steri-strips beneath your dressing, simply allow them to fall off. Do not peel them off. There may be Indermil (skin glue) also, allow this to flake off. Do not pick this off. When to call your healthcare provider: If you notice bleeding from the incision on your chest, you should lie flat and apply firm pressureover the site for 10-15 minutes, keeping the site covered and call your doctor. If you are still bleeding after 10-15 minutes, reapply pressure, and have someone drive you to the nearest Emergency Department, or call 911. If you develop pain, redness, drainage or swelling at or around chest incision site. If you develop a fever equal to or greater than 101 degrees Fahrenheit. When to call the Interventional Radiology Department: Please call with any questions or concerns. If it is during regular office hours, please call [phone]. If it is after regular office hours, or on weekends or holidays, please call [phone] and ask to speak to the Delivery Manager telecommunication tower technician for Interventional Radiology. You have received medication during your procedure to help lesson anxiety and keep you comfortable.These medications affect judgement and reaction time. We recommend that you do not drive, operate equipment, sign any important documents, or smoke unattended for 24 hours following your procedure. Because of the sedation, be careful on stairs, as you may be unsteady on your feet. You may resume your regular diet as tolerated. IV site -- slight redness, or tenderness is normal, you can use a warm compress. If tenderness and redness increases or foul drainage occurs, please contact your M. D. 03/15/11 documented in this encounter Medications at Time of Discharge [...] dgkin's disease Apply topically. Apply liberally [facility] 30-60 minutes prior to lab [...] Gastroesophageal Reflux 04/02/19 23 vitamin 27 & [id number] 60 mg iron-1 mg tablet Take 1 tablet by mouth daily. 04/02/2022 documented as of this encounter Progress Notes * Nimisha Gonsales PA - 04/09/2012 7:46 AM EST PRE-PROCEDURE VIR NOTE Date of : 1980 Age: 31 y.o. PCP: Arabella Villarreal MD Referring Physician (if different): Myron Cruz MD Indication: 31 y.o. Female completed treatment for Hodgkin's lymphoma. Planned Procedure: Mediport removal. Chief Complaint/Diagnosis: 31 yo female completed treatment for Hodgkin's Lymphoma on 03/19/2012. She is to f/u on 04/10/12 for restaging and port removal. Pertinent Past Medical/Surgical History: No past medical history on file. Past Surgical History Procedure Date ??? Bx/remv, lymph node, deep cerv 09/25/2011 BIOPSY OR EXCISION OF LYMPH NODE(S), OPEN, DEEP CERVICAL NODES performed by ANA LOPEZ at [facility] MAIN OR ??? Bone marrow bx, needle/trocar 10/10/2011 (MSURG) BONE MARROW,BIOPSY performed by MYRON CRUZ at [facility] MAIN OR Allergies Allergen Reactions ??? Other (Unclassified Drug) Nausea Only Prefilled saline syringes cause severe nausea--please draw saline flushes from vials or bags only! Current Outpatient Prescriptions on File Prior to Encounter Medication Sig Dispense Refill ??? prochlorperazine (COMPAZINE) 5 mg tablet take 1 tablet by mouth every 6 hours if needed for nausea 30 tablet 2 ??? fluconazole (DIFLUCAN) 150 mg tablet Take as directed. 4 tablet 0 ??? loratadine (CLARITIN) 10 mg tablet Take 10 mg by mouth daily. Indications: Seasonal allergies ??? lidocaine-prilocaine (EMLA) cream Apply topically. Apply liberally to mediport site 30-60 minutes prior to lab appointment, cover with dressing as instructed. 30 g 2 ??? LORazepam (ATIVAN) 0.5 mg tablet Take 1 tablet by mouth every 6 hours as needed (Nausea). 50 tablet 3 ??? Lysine HCl 500 mg Tab Take 500 mg by mouth 2 times daily. Indications: Cold sores ??? scopolamine (TRANSDERM-SCOP) 1.[address] 1 patch onto the skin every 72 hours. Use as needed for nausea not relieved by Zofran or Compazine. 10 patch 12 ??? ranitidine (ZANTAC) 150 mg tablet Take 150 mg by mouth daily as needed. Indications: Gastroesophageal Reflux ? ? vitamin 27 & [id number] 60 mg iron-1 mg tablet Take 1 tablet by mouth daily. Current Facility-Administered Medications on File Prior to Encounter Medication Dose Route Frequency Provider Last Rate [...] Cruz MD 0.5 mg at 02/20/12 1303 Pertinent ROS: as per HPI Pertinent Family History: non contributory Social History: n/a Labs: Lab Results Component Value Date WBC 1.5* 03/19/2012 ANC 0.52* 03/19/2012 HCT 33.5* 03/19/2012 PLATELET 341 03/19/2012 INR 1.0 09/24/2011 BUN 11 03/05/2012 Lab Results Component Value Date ALKPHOS 42 03/05/2012 AST 18 03/05/2012 ALBUMIN 4.2 03/05/2012 BILIDIR <0.1 03/05/2012 BILITOT 0.2 03/05/2012 ALT 17 03/05/2012 Imaging: Mediport on right. Restaging scan scheduled for 04/10/2012. Assessment / Plan: 31 yo female completed treatment for Hodgkin's Lymphoma on 03/19/2012. She is scheduled for restaging scans on 04/10/2012. Will need to check scans prior to port removal. If clear, will proceed with mediport removal. Medications to discontinue: None Prophylactic antibiotic: Cefazolin Planned access site / position: Supine 04/10/12 Addendum: The patient's history and physical exam have been reviewed and completed. There has been no interval change from that of the pre-operative history and physical exam done within the last 30 days. Risks and benefits discussed and patient consented to the procedure. Physical Exam Heart: RRR Lungs: clear ASA Classification: ASA 2 - Patient with mild systemic disease with no functional limitations Mallampati Classification: II (soft palate, uvula, fauces visible) * Cris Gupta RN - 04/08/2012 8:13 AM EST [facility] NURSING DATABASE Name: VIDHI PEREZ Date of : 1980 AGE 31 y.o. Address: [address] [place] [id number] (home) [phone] (work) Mobile: Telephone Information: Referring Provider: Myron Cruz Reason for Visit: Chest port removal: chemo completed Allergies Allergen Reactions ??? Other (Unclassified Drug) Nausea Only Prefilled saline syringes cause severe nausea--please draw saline flushes from vials or bags only! Pertinent PMH: Patient Active Problem List Diagnoses Code ??? Hodgkin's lymphoma 201.90 Pertinent PSH: Past Surgical History Procedure Date ??? Bx/remv, lymph node, deep cerv 09/25/2011 BIOPSY OR EXCISION OF LYMPH NODE(S), OPEN, DEEP CERVICAL NODES performed by ANA LOPEZ at [facility] MAIN OR ??? Bone marrow bx, needle/trocar 10/10/2011 (MSURG) BONE MARROW,BIOPSY performed by MYRON CRUZ at [facility] MAIN OR Social Hx: Never smoked Date/Procedure Comments: 09/17/11 CT Guided Mediastinal Biopsy Versed 6mg/Fent 300mcg. Maykel well. 11/15/2011 Chest port placement Versed 3 Mg/IV; Fentanyl 150 Mcg/IV; Cefazolin 1 GM/IVPB 04/10/12 port removal Versed 3 mg, fentanyl 150 mcg, ancef 1 gm Laboratory Results: Lab Results Component Value Date INR 1.0 09/24/2011 Lab Results Component Value Date PT 13.8 09/24/2011 Lab Results Component Value Date BUN 11 03/05/2012 Lab Results Component Value Date CREATININE 0.67* 03/05/2012 Lab Results Component Value Date K 3.9 03/05/2012 Lab Results Component Value Date PLATELET 341 03/19/2012 Medications: Prior to Admission medications Medication Sig Start Date End Date Taking? Authorizing Provider prochlorperazine (COMPAZINE) 5 mg tablet take 1 tablet by mouth every 6 hours if needed for nausea 02/26/12 Anamika Jorge APRN fluconazole (DIFLUCAN) 150 mg tablet Take as directed. 02/20/12 Cyndy Alfaro APRN loratadine (CLARITIN) 10 mg tablet Take 10 mg by mouth daily. Indications: Seasonal allergies 11/20/11 System, Pcp Not In lidocaine-prilocaine (EMLA) cream Apply topically. Apply liberally to mediport site 30-60 minutes prior to lab appointment, cover with dressing as instructed. 11/15/11 Myron Cruz MD LORazepam (ATIVAN) 0.5 mg tablet Take 1 tablet by mouth every 6 hours as needed (Nausea). 11/13/11 Cyndy Alfaro APRN Lysine HCl 500 mg Tab Take 500 mg by mouth 2 times daily. Indications: Cold sores ProviderTroy MD scopolamine (TRANSDERM-SCOP) 1.[address] 1 patch onto the skin every 72 hours. Use as needed for nausea not relieved by Zofran or Compazine. 10/22/11 Myron Cruz MD ranitidine (ZANTAC) 150 mg tablet Take 150 mg by mouth daily as needed. Indications: Gastroesophageal Reflux Provider, MD Troy vitamin 27 & [id number] 60 mg iron-1 mg tablet Take 1 tablet by mouth daily. Provider, MD Troy documented in this encounter Procedure Notes * Nimisha Gonsales PA - 04/10/2012 11:17 AM ESTProcedure(s): MEDIPORT REMOVAL VIR PROCEDURE NOTE Procedure: Single lumen chest port [...] Maximal sterile barrier technique prep and drape. Preprocedure [...] by: Nimisha Gonsales PA-C Attending: Dr. Bradford documented in this encounter Miscellaneous Notes * Miscellaneous - Provider, Scanning - 04/15/2012 12:07 PM EST * Miscellaneous - Provider, Scanning - 04/15/2012 11:44 AM EST documented in this encounter Plan of Treatment Not on file documented as of this encounter Procedures Procedure Name Priority Date/Time Associated Diagnosis Comments POCT GLUCOSE Routine 04/10/2012 2:10 PM EST IR MEDIPORT PLACEMENT Routine 04/10/2012 11:14 AM EST Hodgkin's lymphoma documented in this encounter Results * POCT Glucose (04/10/2012 2:10 PM EST) Glucose, POC 82 60 - 199 mg/dL [facility] Comment: Supplemental ranges: <110 mg/dL before meals <200 mg/dL all other times of the day Blood specimen (specimen) 04/10/2012 2:10 PM EST 04/10/2012 2:[address] Gricelda Bullard MD POINT OF CARE TEST O RDERABLES [facility] * IR mediport placement or removal (04/10/2012 [...] Procedure Note Onesimo Bradford MD - 04/13/2012 VIR PROCEDURE NOTE Procedure: Single lumen chest port [...] MAR Action Action Date Dose Rate Site ceFAZolin (ANCEF) 1 gram/50 mL 1 dose, Starting on Fri04/10/12 at 1023, Until Fri04/10/12 at 0900, CRIS GUPTA: cabinet override New Bag 04/10/2012 9:00 AM EST 1 g mL/hr fentaNYL (PF) 50 mcg/mL injection 1 dose, Starting on Fri04/10/12 at 1023, Until Fri04/10/12 at 1045, CRIS GUPTA: cabinet override Given 04/10/2012 10:45 AM EST 150 mcg midazolam (VERSED) 1 mg/mL injection 1 dose, Starting on Fri04/10/12 at 1023, Until Fri04/10/12 at 1045, CRIS GUPTA: cabinet override Given 04/10/2012 10:45 AM EST 3 mg documented in this encounter Care Teams Concrete Wall Grinder Operator Relationship Specialty Start Date End Date Arabella Villarreal MD [address] [facility] [address] [place] [address] PCP - General 09/16/11 documented as of this encounter
--- OUTSIDE RECORDS SUMMARY | 2024-04-07 01:41 | XMS_ITS | Encounter Summary ---
Author Organization [facility] [place] [address] Care Team Providers Care Coding Quality Analyst Name Role Phone Arabella Villarreal MD Primary Care Provider [phone] Encounter Details Date Type Department Care Team (Latest Contact Info) Description 10/01/2012 8:30 AM EDT Ancillary Appointment Hematology [place] [phone] CLINIC, Myron Denney MD [facility] [place] [address] Hodgkin's lymphoma; Examination of participant in clinical [...] trial documented in this encounter Care Teams Coding Quality Analyst Relationship Specialty Start Date End Date Arabella Villarreal MD [address] [place], [place] [id number] [place] [address] PCP - General 09/16/11 documented as of this encounter
--- OUTSIDE RECORDS SUMMARY | 2024-04-07 01:41 | XMS_ITS | Encounter Summary ---
Author Organization [facility] [place] [address] Care Team Providers Care Grinder Name Role Phone Arabella Villarreal MD Primary Care Provider [phone] Reason for Visit * Reason Comments Follow-up Encounter Details Date Type Department Care Team (Late st Contact Info) Description 12/24/2012 9:00 AM EDT Follow-Up Hematology [place] [address] Myron Cruz MD [facility] [address] [place] [address] Hodgkin's lymphoma (Primary Dx) Discharge Disposition: Home [...] Sign Reading Time Taken Comments Blood Pressure 121/74 12/24/2012 9:08 AM EDT Pulse 58 12/24/2012 9:08 AM EDT Temperature 36.5 ??C (97.7 ??F) 12/24/2012 9:08 AM ED T Respiratory Rate 18 12/24/2012 9:08 AM EDT Oxygen Saturation 100% 12/24/2012 9:08 AM EDT Inhaled Oxygen Concentration - - Weight 82 kg (180 lb 12.4 oz) 12/24/2012 9:08 AM EDT Height 169 cm (5' 6.54) 12/24/2012 9:08 AM EDT Body Mass Index 28.71 12/24/2012 9:08 AM EDT documented in this encounter Progress Notes * Myron Cruz MD - 12/23/2012 2:38 PM EDT HEMATOLOGY FOLLOW UP NOTE Chasity Gallo [...] Gastroesophageal Reflux ? ? vitamin 27 & [id number]-[id number]-TO 60 mg iron-1 mg tablet Take 1 [...] of ABVD chemotherapy on clincal trial [facility] 5[address] in March 2012. Since her last visit ~ 3 months ago, Chasity reports feeling quite well. Interim history: Has been having GERD. Denies f/c/ns. Denies SOB, CP. Denies swelling. 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 Menstrual cycle is regular, a little early at times. Excercising more. Feels good. Review of Systems: Hematological and Lymphatic ROS: [...] negative except for above. Physical Exam: BP 121/74 Pulse 58 Temp 36.5 ??C (97.7 ??F) (Oral) Resp 18 Ht 169 cm (5' 6.54) Wt 82 kg (180 lb 12.4 oz) BMI 28.71 kg/m2 SpO2 100% Gen: well appearing, well [...] 3.3 (*) 4.0 - 10.0 x10(3)/mcL RBC 3.84 (*) 3.93 - 5.22 x10(6)/mcL Hemoglobin 11.8 11.2 - 15.7 gm/dL Hematocrit 35.6 34.0 - 45.0 % MCV 92.7 79.0 - 94.0 fL MCH 30.7 26.6 - 32.2 pg MCHC 33.1 32.0 - 36.5 gm/dL Platelets 225 145 - 370 x10(3)/mcL RDWSD 41.6 35.0 - 46.0 fL RDWCV 12.2 10.9 - 14.4 % MPV 9.3 9.0 - 12.0 fL DIFFERENTIAL, AUTOMATED Component Value Range Neutrophils % 74.2 (*) 34.0 - 71.0 % Neutr Abs (ANC) 2.44 1.50 - 6.30 x10(3)/mcL Lymphocytes % 14.6 (*) 19.0 - 53.0 % Lymphocytes Abs 0.5 (*) 1.0 - 3.6 x10(3)/mcL Monocytes % 8.2 4.0 - 13.0 % Monocyte Abs 0.3 0.2 - 1.0 x10(3)/mcL Eosinophils % 2.1 0.0 - 7.0 % Eosinophils Abs 0.1 0.0 - 0.5 x10(3)/mcL Basophils % 0.9 0.0 - 2.0 % Basophils Abs 0.0 0.0 - 0.2 x10(3)/mcL Immature Gran % 0.00 0.00 - 0.66 % Maryann Gran Abs 0.00 0.00 - 0.05 x10(3)/mcL Radiographic Data: Assessment/Plan: 32 year old now s/p 6 cycles of ABVD for stage IIA HL, ABVD on study PET2 negativecentral review, and s/p 6 cycles of ABVD, last dose 03/19/2012. PET showed CR after all therapy. No clinical, laboratory or radiographic evidence of disease progression. No residual effects of chemothe rapy identified. -No evidence of relapse by symptoms or labs -CT next visit with labs -GERD--increase ranitidine. If still not effective, I recommended prilosec Total time spent with patient: 30 minutes Time spent in counseling and coordination of care: 20 minutes Myron Cruz MD Cook Seafoodapplication specialist Section of Hematology/Oncology [facility] Cc: Arabella Villarreal MD documented in this encounter Plan of Treatment Not on file documented as of this encounter Procedures Procedure Name Priority Date/Time Associated Diagnosis Comments DIFFERENTIAL, AUTOMATED STAT 12/24/2012 8:59 AM EDT SEDIMENTATION RATE STAT 12/24/2012 8: 59 AM EDT Hodgkin's lymphoma CBC (WITH DIFF) STAT 12/24/2012 8:59 AM EDT Hodgkin's lymphoma COMPREHENSIVE METABOLIC PANEL STAT 12/24/2012 8:59 AM EDT Hodgkin's lymphoma documented in this encounter Results * Sedimentation rate (03/22/2013 12:15 PM EST) Sedimentation Rate Automated 7 0 - 20 mm/hr [facility] Blood specimen (specimen) 03/22/2013 12:15 PM EST 03/22/2013 12:24 PM EST Narrative Resulting Agency Comment Spec In Lab Myron Cruz MD HEMATOLOGY ORDERAB LES CERNER MILLENNIUM * (ABNORMAL) Comprehensive metabolic panel (non-fasting) (03/22/2013 12:15 PM EST) Glucose 92 60 - 199 mg/dL CERNER MILLENNIUM Comment:Diabetes: >=200 mg/d L plus symptoms Blood Urea Nitrogen 15 8 - 18 mg/dL CERNER MILLENNIUM Creatinine 0.77 0.70 - 1.20 mg/dL CERNER MILLENNIUM Comment: Please note that the pediatric reference intervals supplied above were not validated at [facility]. Results from pediatric patients [...] CHEMISTRY ORDERABL ES CERNER MILLENNIUM * (ABNORMAL) CBC (with Diff) [...] MD HEMATOLOGY ORDERAB LES CERAZEB LEHMANENNIUM * (ABNORMAL) Differential, Automated (12/24/2012 8:59 AM EDT) Neutrophil % 74.2(H) 34.0 - 71.0 % CERNER MILLENNIUM Neutrophil Absolute 2.44 1.50 - 6.30 x10(3)/mc L CERNER MILLENNIUM Lymph % 14.6(L) 19.0 - 53.0 % CERNER MILLENNIUM Lymphocytes Abs 0.5(L) 1.0 - 3.6 x10(3)/mc L CERNER MILLENNIUM Monocyte % 8.2 4.0 - 13.0 % CERNER MILLENNIUM Monocyte Abs 0.3 0.2 - 1.0 x10(3)/mc L CERNER MILLENNIUM Eos % 2.1 0.0 - 7.0 % CERNER MILLENNIUM Eosinophils Abs 0.1 0.0 - 0.5 x10(3)/mc L CERNER MILLENNIUM Basophil % 0.9 0.0 - 2.0 % CERNER MILLENNIUM Baso [...] x10(3)/mc L CERNER MILLENNIUM Blood specimen (specimen) 12/24/2012 8:59 AM EDT 12/24/2012 9:10 AM EDT Myron Cruz MD HEMATOLOGY ORDERAB LES MAGDALENA CARTER * Sedimentation rate (12/24/2012 8:59 AM EDT) Sedimentation Rate Automated 7 0 - 20 mm/hr CERNER MILLENNIUM Blood specimen (specimen) 12/24/2012 8:59 AM EDT 12/24/2012 9:10 AM EDT Narrative Resulting Agency Comment Spec In Lab Myron Cruz MD HEMATOLOGY ORDERAB LES CERNER MILLENNIUM * (ABNORMAL) Comprehensive metabolic panel (non-fasting) (12/24/2012 8:59 AM EDT) Glucose 80 60 - 199 mg/dL CERNER MILLENNIUM Comment:Diabetes: >=200 mg/d L plus symptoms Blood Urea Nitrogen 15 8 - 18 mg/dL CERNER MILLENNIUM Creatinine 0.81 0.70 - 1.20 mg/dL CERNER MILLENNIUM Comment: Please note that the pediatric reference intervals supplied above were not validated at [facility]. Results from pediatric patients [...] CHEMISTRY ORDERABL ES CERNER MILLENNIUM * (ABNORMAL) CBC (with Diff) (12/24/2012 8:59 [...] unspecified documented in this encounter Care Teams Grinder Relationship Specialty Start Date End Date Arabella Villarreal MD [address] [place] [address] PCP - General 09/16/11 documented as of this encounter
--- OUTSIDE RECORDS SUMMARY | 2024-04-07 01:41 | XMS_ITS | Encounter Summary ---
[place] [address] Care Team Providers Care Inspector Technician Name Role Phone Arabella Villarreal MD Primary Care Provider [phone] Encounter Details Date Type Department Care Team (Late st Contact Info) Description 10/01/2012 9:30 AM EDT Office Visit Hematology [place] [phone] Social History Tobacco Use Types Packs/Day Years [...] on filedocumented in this encounter Care Teams Inspector Technician Relationship Specialty Start Date End Date Arabella Villarreal MD [address] [place], [place] [id number] PCP - General 09/16/11 documented as of this encounter
--- OUTSIDE RECORDS SUMMARY | 2024-04-07 01:41 | XMS_ITS | Encounter Summary ---
Author Organization [place] [address] Care Team Providers Care Staff [employer] Officer Name Role Phone Arabella Villarreal MD Primary Care Provider [phone] Encounter Details Date Type Department Care Team (Late st Contact Info) Description 04/10/2012 12:45 PM EST Office Visit Hematology [place] [phone] Exam for clinical research (Primary Dx); Hodgkin's [...] Progress Notes * Olga Espinoza RN - 04/10/2012 1:41 PM EST RESEARCH NURSE OFFICE NOTE [id number] 04/10/2012 [id number]: Phase II Trial of Response-Adapted Therapy Based on Positron Emission Tomography (PET) for Bulky Stage I and Stage II Classical Hodgkin Lymphoma (HL) RUT Gaspar presented to hem-onc clinic, accompanied by , for [id number] visit per protocol. Evaluated by Anamika Jorge APRN, please see her note for details. Please also see telephone note for interval history. Chasity reports that she feels tired today, after sedation from her mediport removal. Unfortunately, mediport removal took longer than anticipated this morning and thus she hadto start drinking her CT prep while recovering from anesthesia. Chasity reports that after drinking2 cups of her CT prep, she vomited and is unsure whether she can drink anymore without vomiting again. RESIDENTIAL INSTALLER made aware; Zofran 4mg administered by mouth in clinic at 1:15pm (see MAR). Patient given option to continue with CT and PET scan today or reschedule CT for later time; Chasity requests that CT and PET scans are done today as originally planned. Chasity verbalizes understanding that the quality of these scans may not be acceptable due to sub-optimal prep and that they may need to be repeated if so. Since her last chemo treatment, Chasity reports that her fatigue is lessening, hemorrhoids are getting much better, and diarrhea is better over the past week. Denies any further abdominal cramping or urgency with bowel movements. Denies any further scalp pain, mouth sores, or dry/scratchy throat mouth. Continues taking Zantac daily and has had no symptoms of heartburn. STUDY ASSESSMENTS COMPLETED CBC, CMP, ESR, lab kit Physical exam, AE assessment CT (neck, chest, abdomen, pelvis) PET scan AE/SIDE EFFECT MONITORING # AE Grade (CTCAE [...] 11/07/11 ongoing 17 Scalp pain 1 11/07/11 04/10/12 sensitivity [...] ongoing Intermittently 53 Dry mouth 1 03/18/12 04/10/12 Humidifier use at night 54 Hemorrhoids 1 04/10/12 ongoing EDUCATION PROVIDED AVS printed and reviewed with patient, including plan for follow-up on study. Patient reminded thather continued participation in study is completely voluntary and that she may discontinue study participation at any time without affecting her access to care or treatment at this institution. Chasity states that she does not want to have CT scans every 3 months, but is agreeable to CT scans every 6 months. Reviewed plan to schedule her 3 month appointment for labs and MD/RESIDENTIAL INSTALLER visit only. PLAN 1. Subject agrees to continue on study [id number] per protocol, now entering follow- up phase of study. 2. Next visit (3-month follow-up) to be scheduled for 07/03/12 to include: Labs, /RESIDENTIAL INSTALLER visit. Patient has stated that she does not want [...] unspecified documented in this encounter Care Teams Staff [employer] Officer Relationship Specialty Start Date End Date Arabella Villarreal MD [address] [place] [address] PCP - General 09/16/11 documented as of this encounter
--- OUTSIDE RECORDS SUMMARY | 2024-04-07 01:41 | XMS_ITS | Encounter Summary ---
Author Organization [facility] Address [facility] [place] [address] Care Team Providers Care Able Bodied Seaman Name Role Phone Arabella Villarreal MD Primary Care Provider [phone] Encounter Details Date Type Department Care Team (Latest Contact Info) Description 03/19/2012 8:05 AM EST - 03/19/2012 11:59 PM EST Hospital Encounter Hematology [place] [phone] CLINIC, Myron Denney MD [facility] [place] [address] Hodgkin's lymphoma Discharge Disposition: Home Social History [...] dgkin's disease Apply topically. [facility] 30-60 minutes prior to lab appointment, [...] Gastroesophageal Reflux 04/02/19 23 vitamin 27 & [id number]-NO 60 mg iron-1 mg tablet Take 1 tablet by mouth daily. 04/02/2022 documented as of this encounter Progress Notes * Natacha Buchanan RN - 03/19/2012 8:17 AM EST Port accessed and labs drawn. documented in this encounter Plan of Treatment Not on file documented as of this encounter Procedures Procedure Name Priority Date/Time Associated Diagnosis Comments DIFFERENTIAL, MANUAL STAT 03/19/2012 8:15 AM EST NUCLEATED RED BLOOD CELLS STAT 03/19/2012 8:15 AM EST CBC (WITH DIFF) STAT 03/19/2012 8:15 AM EST Hodgkin's lymphoma documented in this encounter Results * (ABNORMAL) Differential, Manual (03/19/2012 8:15 AM EST) Neutrophil % Manual 32(L) 34 - 71 % CERNER MILLENNIUM Band % 3 0 - 12 % CERNER MILLENNIUM Lymphocyte Manual 41 19 - 53 % CERNER MILLENNIUM Monocyte Manual 17(H) 4 - 13 % CERN ER MILLENNIUM Eosinophil Manual 4 0 - 7 % CERNER MILLENNIUM Basophil Manual 3(H) 0 - 2 % CERN ER MILLENNIUM Neutrophil Absolute (ANC) - Manual 0.5(L) 1.5 - 6.3 x10(3)/mcL CERNER MILLENNIUM Band Abs 0.0(L) 0.2 - 0.6 x10(3)/mcL CERNER MILLENNIUM Neutrophil Absolute (ANC) - Automated 0.52(L) 1.50 - 6.30 x10(3)/mcL CERNER MILLENNIUM Lymph Absolute Manual 0.6(L) 1.0 - 3.6 x10(3)/mcL CERNER MILLENNIUM Monocyte Absolute Manual 0.2 0.2 - 1.0 x10(3)/mcL CERNER MILLENNIUM Eos Absolute Manual 0.1 0.0 - 0.5 x10(3)/mcL CERNER MILLENNIUM Baso Absolute Manual 0.0 0.0 - 0.2 x10(3)/mcL CERNER MILLENNIUM Total Cells Ct 100 CERNE R MILLENNIUM Plat estimate Normal CERNER MILLENNIUM RBC Morphology Normal CERNE R MILLENNIUM Blood specimen (specimen) 03/19/2012 8:15 AM EST 03/19/2012 8:22 AM EST Narrative Resulting Agency Comment Spec In Lab Myron Curz MD HEMATOLOGY ORDERAB LES CERNER MILLENNIUM * Nucleated Red Blood Cells (03/19/2012 8:15 AM EST) NRBC% auto 0.0 0.0 - 0.2 % CERNER MILLENNIUM NRBC Absolute 0.000 0.000 - 0.012 x10(3)/mcL CERNER MILLENNIUM Blood specimen (specimen) 03/19/2012 8:15 AM EST 03/19/2012 8:22 AM EST Narrative Resulting Agency Comment Spec In Lab Myron Cruz MD HEMATOLOGY ORDERAB LES CERNER MILLENNIUM * (ABNORMAL) CBC (with Diff) (03/19/2012 8:15 AM EST) White Blood Cell 1.5(Criti mario) 4.0 - 10.0 x10(3)/mc L CERNER MILLENNIUM Red Blood Cell 3.71(L) 3.93 - 5.22 x10(6)/mc L CERNER MILLENNIUM Hemoglobin 11.2 11.2 - 15.7 gm/dL CERNER MILLENNIUM Hematocrit 33.5(L) 34.0 - 45.0 % CERNER MILLENNIUM Mean Cell Volume 90.3 79.0 - 94.0 fL CERNER MILLENNIUM Mean Cell Hemoglobin 30.2 26.6 - 32.2 pg CERNER MILLENNIUM Mean Cell Hemoglobin Concentration 33.4 32.0 - 36.5 gm/dL CERNER MILLENNIUM Platelet 341 145 - 370 x10(3)/mc L CERNER MILLENNIUM RDW Standard Deviation 41.9 35.0 - 46.0 fL CERNER MILLENNIUM RDW coefficient of variation 12.8 10.9 - 14.4 % CERNER MILLENNIUM Mean Platelet Volume 9.0 9.0 - 12.0 fL CERNER MILLENNIUM Blood specimen (specimen) 03/19/2012 8:15 AM EST 03/19/2012 8:22 AM EST Narrative Resulting Agency Comment Spec In Lab Myron Cruz MD HEMATOLOGY ORDERAB LES CERAZEB MILLENNIUM documented in this encounter Visit Diagnoses Diagnosis Hodgkin's lymphoma Hodgkin's disease, unspecified documented in this encounter Care Teams Able Bodied Seaman Relationship Specialty Start Date End Date Arabella Villarreal MD [address] [place] [address] [address] PCP - General 09/16/11 documented as of this encounter
--- OUTSIDE RECORDS SUMMARY | 2024-04-07 01:42 | XMS_ITS | Encounter Summary ---
Author Organization [facility] [place] [address] Care Team Providers Care Printed Circuit Boards Beveler Name Role Phone Arabella Villarreal MD Primary Care Provider [phone] Encounter Details Date Type Department Care Team (Late st Contact Info) Description 02/20/2012 External Results Hematology [place] [address] Cyndy Alfaro, OUTDOOR RECREATION SPECIALIST [facility] DR HEMATOLOGY [place] [address] Social History Tobacco Use Types Packs/Day Years [...] on filedocumented in this encounter Care Teams Printed Circuit Boards Beveler Relationship Specialty Start Date End Date Arabella Villarreal MD [address] [place], [place] [id number] PCP - General 09/16/11 documented as of this encounter
--- OUTSIDE RECORDS SUMMARY | 2024-04-07 01:42 | XMS_ITS | Encounter Summary ---
Author Organization [facility] [place] [address] Care Team Providers Care Hand Woven Carpet And Rug Mender Name Role Phone Arabella Villarreal MD Primary Care Provider [phone] Encounter Details Date Type Department Care Team (Late st Contact Info) Description 02/19/2012 Telephone [place]ematology [place] [phone] Myron Cruz MD [facility] [address] [place] [address] Social History Tobacco Use Types Packs/Day Years [...] Telephone Encounter - Olga Espinoza RN - 02/19/2012 6:51 PM EST ADDENDUM 1430: Received follow-up call from patient stating that she just left the ER at [facility], during which point she had lab work, CXR and EKG. Per Chasity's report, everything was fine and she was told that her symptoms were not likely related to her heart, but could bedue to pain in her chest wall. Chasity states that she was told that she is neutropenic and educated again about infection prevention. Chasity reports that she has been afebrile and asymptomatic, with the exception of a scratchy throat over the past weekend, which resolved without intervention byTuesday. Appointments for 02/20/12 reviewed. 1440: Received phone call with critical lab result (WBC 1.25) from Ana Luisa at [facility]. Patient identity confirmed, result read back. Ana Luisa states that differential was not performed on this CBC. Dr. Cruz paged with critical WBC per institutional standards. * Telephone Encounter - Olga Espinoza RN - 02/19/2012 12:26 PM EST RESEARCH NURSE TELEPHONE NOTE [id number]: Phase II Trial of Response-Adapted Therapy Based on Positron Emission Tomography (PET) for Bulky Stage I and Stage II Classical Hodgkin Lymphoma (HL) Date: 02/19/2012 Time: 12:26 PM Study Day: C5D14 Reason for call: Symptom management (home) Received telephone call from Chasity, who states that she has noticed wierd pains in my chest a couple of times today, which are unlike previous symptoms that she has experienced. Describes pain assoreness, centrallized in my chest, located under her sternum, but not sharp pain. Denies any shortness of breath, associated symptoms/activity, or recent heartburn. Chasity states that she is currently at work and would like to go for evaluation at [facility] in [facility] after work. Education Provided: Encouraged Chaisty to seek local evaluation for symptoms, as she is currently receiving a cardiotoxic medication (Adriamycin). Chasity is agreeable to presenting to local ER for evaluation after worktoday or sooner should symptoms recur. Plan: 1. Pt will continue on study [id number] per protocol. 2. Dr. Cruz/Cyndy Alfaro APRN made aware of new symptoms and patient's plan for evaluation today. Patient verbalizes understanding of, and agreement with, plan. Advised to contact this office for any questions/concerns, as well as for any new or worsening symptoms. documented in this encounter Plan of Treatment Not on file documented as of this encounter Visit Diagnoses Not on filedocumented in this encounter Care Teams Hand Woven Carpet And Rug Mender Relationship Specialty Start Date End Date Arabella Villarreal MD [address] [place] [address] [address] [place] [address] PCP - General 09/16/11 documented as of this encounter
--- OUTSIDE RECORDS SUMMARY | 2024-04-07 01:42 | XMS_ITS | Encounter Summary ---
Author Organization [facility] [place] [address] Care Team Providers Care Tutor Coordinator Name Role Phone Jonh Villarreal MD Primary Care Provider [phone] Reason for Visit * Reason Comments Chemotherapy Encounter Details Date Type Department Care Team (Late st Contact Info) Description 03/05/2012 9:30 AM EST Follow-Up Hematology [place] [address] Myron Cruz MD [facility] [place] [address] HD (Hodgkin's disease) (Primary Dx) Discharge Disposition: [...] Sign Reading Time Taken Comments Blood Pressure 126/63 03/05/2012 9:16 AM EST Pulse 74 03/05/2012 9:16 AM EST Temperature 36.5 ??C (97.7 ??F) 03/05/2012 9:16 AM ES T Respiratory Rate 18 03/05/2012 9:16 AM EST Oxygen Saturation 98% 03/05/2012 9:16 AM EST Inhaled Oxygen Concentration - - Weight 94.8 kg (208 lb 15.9 oz) 03/05/2012 9:16 AM EST Height 168.5 cm (5' 6.34) 03/05/2012 9:16 AM ES T Body Mass Index 33.39 03/05/2012 9:16 AM EST documented in this encounter Progress Notes * Cyndy Alfaro, AQUATICS ASSISTANT DEPARTMENT HEAD - 03/04/2012 4:24 PM EST HEMATOLOGY FOLLOW UP NOTE Chasity [...] mouth daily. Indications: Seasonal allergies 11/20/11 Yes Pcp Not In System lidocaine-prilocaine (EMLA) cream Apply topically. Apply liberally [...] 2 times daily. Indications: Cold sores Yes Historical Provider, scopolamine (TRANSDERM-SCOP) 1.[address] 1 patch onto the skin every 72 hours. Use as needed for nausea not relieved by Zofran or Compazine. 10/22/11 Yes Myron Cruz MD ranitidine (ZANTAC) 150 mg tablet Take 150 mg by mouth daily as needed. Indications: Gastroesophageal Reflux Yes Historical Provider, MD smalls vitamin 27 & [id number]-drla-MD 60 mg iron-1 mg tablet Take 1 tablet by mouth daily. Yes Historical Provider, zolpidem (AMBIEN) 5 mg tablet Take by mouth. Take 1-2 tablets nightly as needed for sleep. 11/22/11 Myron Cruz MD Allergies: Allergies Allergen Reactions ??? Other (Unclassified Drug) Nausea Only Prefilled saline syringes cause severe nausea--please draw saline flushes from vials or bags only! Interim History: Chasity Gallo is here for C6D1 ABVD on clincal trial. Since her last visit, she has been relatively well. She enjoyed the holidays with her family. She reports tolerating her chemotherapywithout new side effects. She continues to experience nausea for a few days following chemotherapy which is easily managed with Compazine, massage and relaxation therapy which improve in 3-4 days. The holiday break from school was helpful in managing treatment- related fatigue. No fevers, chills, infections or intercurrent illnesses. No residual sore throat or URI symptoms. She used Diflucan x1 for vaginal itch which treated her symptoms and prevented the development of a vaginal yeast infection. No drenching sweats, unintentional weight loss or palpable adenopathy. No further heartburn or chest pressure with daily Zantac. No headaches. She continue to describes right hand swelling and stiffness as with previous cycles. She is excited to think that she is nearing the end of her treatment course. No new health-related concerns. For anticipatory nausea, Chasity continues with plan of taking Ativan prior to chemo appointments at [facility]. Requests private room for today and will use DVDs, music, etc., for distraction purposes while in infusion suite. Review of Systems: Hematological and Lymphatic ROS: negative Energy level: waxes and wanes with the cycle Pain: No Appetite: up and down with taste changes. Fevers/chills/sweats: No Bruising/bleeding/melena: No Recent infections: No Nausea/vomiting/diarrhea/constipation: as noted above SOB/GIBSON/chest pain: No Change in adenopathy or other masses: No Unexpected weight loss or gain: weight stable Skin rashes or petechiae: no erythema, warmth or residual tenderness left forearm. Other systems: No peripheral neuropathy A 12-pt review of systems was performed and was otherwise negative except for above. Physical Exam: BP 126/63 Pulse 74 Temp(Src) 36.5 ??C (97.7 ??F) (Oral) Resp 18 Ht 168.5 cm (5' 6.34) Wt94.8 kg (208 lb 15.9 oz) BMI 33.39 kg/m2 SpO2 98% Gen: well appearing, well developed, well nourished 31-year-old woman in no acute distress. She is accompanied to clinic by her and aunt today. HEENT: PERRL, no oral lesions, [...] CBC (WITH DIFF) Component Value Range WBC 1.4 (*) 4.0 - 10.0 (x10(3)/mcL) RBC 3.51 (*) 3.93 - 5.22 (x10(6)/mcL) Hemoglobin 10.9 (*) 11.2 - 15.7 (gm/dL) Hematocrit 31.7 (*) 34.0 - 45.0 (%) MCV 90.3 79.0 - 94.0 (fL) MCH 31.1 26.6 - 32.2 (pg) MCHC 34.4 32.0 - 36.5 (gm/dL) Platelets 273 145 - 370 (x10(3)/mcL) RDWSD 42.1 35.0 - 46.0 (fL) RDWCV 13.2 10.9 - 14.4 (%) MPV 9.0 9.0 - 12.0 (fL) COMPREHENSIVE METABOLIC PANEL (NON-FASTING) Component Value Range Glucose Lvl 93 60 - 199 (mg/dL) BUN 11 8 - 18 (mg/dL) Creatinine 0.67 (*) 0.70 - 1.20 (mg/dL) Sodium 140 135 - 145 (mmol/L) Potassium 3.9 3.5 - 5.0 (mmol/L) Chloride 108 (*) 98 - 107 (mmol/L) CO2 27 22 - 31 (mmol/L) Anion Gap 5 5 - 15 (mmol/L) Calcium 9.0 8.5 - 10.5 (mg/dL) Total Protein 6.4 6.4 - 8.3 (gm/dL) Albumin 4.2 3.2 - 5.2 (gm/dL) AST 18 0 - 30 (unit/L) ALT 17 0 - 30 (unit/L) Alk Phos 42 40 - 104 (unit/L) Total Bilirubin 0.2 0.2 - 1.3 (mg/dL) Bili, Direct <0.1 0.0 - 0.3 (mg/dL) Estimated GFR >60 >=60 DIFFERENTIAL, AUTOMATED Component Value Range Neutrophils % 41.4 34.0 - 71.0 (%) Neutr Abs (ANC) 0.60 (*) 1.50 - 6.30 (x10(3)/mcL) Lymphocytes % 33.8 19.0 - 53.0 (%) Lymphocytes Abs 0.5 (*) 1.0 - 3.6 (x10(3)/mcL) Monocytes % 17.2 (*) 4.0 - 13.0 (%) Monocyte Abs 0.2 0.2 - 1.0 (x10(3)/mcL) Eosinophils % 4.8 0.0 - 7.0 (%) Eosinophils Abs 0.1 0.0 - 0.5 (x10(3)/mcL) Basophils % 2.8 (*) 0.0 - 2.0 (%) Basophils Abs 0.0 0.0 - 0.2 (x10(3)/mcL) Immature Gran % 0.00 0.00 - 0.66 (%) Maryann Gran Abs 0.00 0.00 - 0.05 (x10(3)/mcL) Radiographic: None reviewed today Assessment/Plan: Stage IIA HL, ABVD on study PET2 negative central review. C6D1 ABVD. --Continue with treatment today as prescribed, on [id number]. No dose modifications necessary. --As in prior cycles, will give Aloxi and Emend today and continue with scopolamine patch changing it in 48 hours to cover through day 7 for delayed nausea. Compazine for breakthrough nausea and Ativan for stress, insomnia. --Will give Pepcid 20mg IV with premedications given gastritis/GERD. Continue daily antacid/PPI therapy until treatment completed --I reviewed protocol specific restaging with her and f/u as mandated by the protocol. She has expressed a desire to have mediport removed on the same day a s her restaging to minimize additional missed work. RTC in 2 weeks for Day 15, cycle #6. Chasity is aware that we remain available in the interim should questions/concerns arise. Total time spent with patient: 30 minutes Time spent in counseling and coordination of care: 20 minutes Cyndy Alfaro, MSN, AQUATICS ASSISTANT DEPARTMENT HEAD Nurse Practitioner Section of Hematology/Oncology [facility] Cc: JOHN VILLARREAL MD documented in this encounter Plan of Treatment Not on file documented as of this encounter Visit Diagnoses Diagnosis HD (Hodgkin's disease)- Primary Hodgkin's disease, unspecified documented in this encounter Care Teams Tutor Coordinator Relationship Specialty Start Date End Date John Villarreal MD [address] [place] [address] PCP - General 09/16/11 documented as of this encounter
--- OUTSIDE RECORDS SUMMARY | 2024-04-07 01:42 | XMS_ITS | Encounter Summary ---
Author Organization [facility] [place] [address] Care Team Providers Care Ramp Boss Name Role Phone Arabella Villarreal MD Primary Care Provider [phone] Reason for Visit * Reason Comments Medication Refill Encounter Details Date Type Department Care Team (Late st Contact Info) Description 02/26/2012 Refill [place] [phone] Myron Cruz MD [facility] [address] [place] [address] Social History Tobacco Use Types Packs/Day Years [...] Telephone Encounter - Olga Espinoza RN - 02/26/2012 7:15 PM EST RESEARCH NURSE TELEPHONE NOTE [id number]: Phase II Trial of Response-Adapted Therapy Based on Positron Emission Tomography (PET) for Bulky Stage I and Stage II Classical Hodgkin Lymphoma (HL) Date: 02/26/2012 Time: 6:35 PM Reason for call: Refill request (home) Phone call received from Chasity, who states that she is feeling ok, but requests a refill of her compazine prescription be sent to [facility] in [facility], as she will be running out soon. Chasity states that she has enough compazine to last for a few days. Swelling in right hand continues, as dohand cramps as previously reported. Denies any worsening of this pain. Nausea has been tolerable (with ativan, compazine, and scopolamine patch) after treatment last week. Denies any other questions/concerns at this time. Plan: 1. Community Service Coordinator to follow-up with covering GERIATRIC PSYCHIATRIST in AM to e-scribe prescription per patient request. Patient verbalizes understanding of, and agreement with, plan. Advised to contact this office for any questions/concerns, as well as for any new or worsening symptoms. documented in this encounter Plan of Treatment Not on file documented as of this encounter Visit Diagnoses Not on filedocumented in this encounter Care Teams Ramp Boss Relationship Specialty Start Date End Date Arabella Villarreal MD [address] [place] [address] PCP - General 09/16/11 documented as of this encounter
--- OUTSIDE RECORDS SUMMARY | 2024-04-07 01:42 | XMS_ITS | Encounter Summary ---
Author Organization [facility] [place] [address] Care Team Providers Care Pilates Instructor Name Role Phone Arabella Villarreal MD Primary Care Provider Encounter Details Date Type Department Care Team (Late st Contact Info) Description 02/19/2012 External Results Hematology [place] [address] [facility] [address] HEMATOLOGY [place] [address] Social History Tobacco Use Types Packs/Day Years [...] on filedocumented in this encounter Care Teams Pilates Instructor Relationship Specialty Start Date End Date Arabella Villarreal MD [address] [place], [place] [id number] PCP - General 09/16/11 documented as of this encounter
--- OUTSIDE RECORDS SUMMARY | 2024-04-07 01:42 | XMS_ITS | Encounter Summary ---
Author Organization Formerly [facility] [place] [address] Care Team Providers Care Forms Analyst Name Role Phone Arabella Villarreal MD Primary Care Provider [phone] Encounter Details Date Type Department Care Team (Late st Contact Info) Description 02/10/2012 Telephone Hematology [place] [address] Cyndy Alfaro, DESIGN ENGINEER [facility] DR HEMATOLOGY [place] [address] Social History Tobacco Use Types Packs/Day Years [...] Telephone Encounter - Olga Espinoza RN - 02/10/2012 5:08 PM EST RESEARCH NURSE TELEPHONE NOTE [id number]: Phase II Trial of Response-Adapted Therapy Based on Positron Emission Tomography (PET) for 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 Of note, patient has been experiencing worsening anticipatory nausea and anxiety while waiting for and during infusion. Chasity states that she has had her typical nausea since her last treatment, as well as lightheadedness today. Has been eating and drinking well, although admittedly I haven't been drinking enoughwater. Denies any vomiting. Returned to work today, during which Chasity reports that the lightheadedness didn't subside as quickly as it usually does. Chasity also endorses sharp pains that shoot through my arms and hands and sometimes go into my legs, which are intermittent in nature for the first 6 days after treatment. This pain has been present after previous treatments, but she has forgotten to report it. Denies problems with chest pain or shortness of breath. Dr. Cruz/Cyndy Alfaro APRN made aware. Education Provided: Discussed importance of presenting to local ER for evaluation of lightheadedness that does not improve or worsening shooting pains. Discussed need for continued distraction techniques at next appointment, including giving patient pager until assigned to infusion room RN, reserving private room for infusion, and entering infusion suite through the clinic entrance in order to avoid visual cues. Revi sed schedule for 03/05/11 reviewed, with infusion time scheduled for 1.5 hours after MD appointment. Follow-up schedule also reviewed, including plan for restaging at end of treatment and CT scans every 3 months for the first year. Chasity states that she is not willing to complete these CTs at a frequency of every 3 months, but is willing to complete them every 6 months. Plan: 1. Pt will continue on study [id number] per protocol. 2. Next visit (C5D15) scheduled for 02/20/12 to include: Labs, /DESIGN ENGINEER visit, ABVD infusion per protocol. Patient verbalizes understanding of, and agreement with, plan. Advised to contact this office for any questions/concerns, as well as for any new or worsening symptoms. documented in this encounter Plan of Treatment Not on file documented as of this encounter Results * PET-CT skull base to mid thigh (04/10/2012 3:51 PM EST) Anatomical Region Laterality Modality Other 04/10/2012 3:51 PM EST Narrative 04/10/2012 4:57 PM EST Examination PET/CT STANDARD (Skull base to Mid-thigh) Technique Procedure: Following IV injection of 42-lqgoko-1-deoxyglucose (FDG) and a standard uptake period, a [...] you for referring this patient to the [facility] PET Center Film and interpretation reviewed by the attending Procedure Note Nakul Kat MD - 04/10/2012 Examination PET/CT STANDARD (Skull base to Mid-thigh) Technique Procedure: Following IV injection of 48-brxprj-0-deoxyglucose (FDG) and a standard uptake period, a [...] you for referring this patient to the [facility] PET Center Film and interpretation reviewed by the attending Myron Cruz MD [facility] PET ORDERABLES * Sedimentation rate (04/10/2012 12:47 PM EST) Sedimentation Rate Automated 15 0 - 20 mm/hr MAGDALNEA CARTER Blood specimen (specimen) 04/10/2012 12:47 PM EST 04/10/2012 12:51 PM EST Narrative Resulting Agency Comment Spec In Lab Myron Cruz MD HEMATOLOGY ORDERAB LES MAGDALENA [employer] * (ABNORMAL) Comprehensive metabolic panel (non-fasting) (04/10/2012 12:47 PM EST) [facility] Glucose 97 60 - 199 mg/dL CERNER MILLENNIUM Comment:Diabetes: >=200 mg/d L plus symptoms Blood Urea Nitrogen 9 8 - 18 mg/dL CERNER MILLENNIUM Creatinine 0.86 0.70 - 1.20 mg/dL CERNER MILLENNIUM Comment: Please note that the pediatric reference intervals supplied above were not validated at [facility]. Results from pediatric patients should [...] Lab Myron Cruz MD CHEMISTRY ORDERABL ES [facility] * (ABNORMAL) CBC (with Diff) (04/10/2012 12:47 PM EST) White Blood Cell 1.9(Criti mario) 4.0 - 10.0 x10(3)/mc L CERNER [...] MILLENNIUM * (ABNORMAL) Comprehensive metabolic panel (non-fasting) (03/05/2012 8:55 AM EST) Glucose 93 60 - 199 mg/dL CERNER MILLENNIUM Comment:Diabetes: >=200 mg/d L plus symptoms Blood Urea Nitrogen 11 8 - 18 mg/dL CERNER MILLENNIUM Creatinine 0.67(L) 0.70 - 1.20 mg/dL CERNER MILLENNIUM Comment: Please note that the pediatric reference intervals supplied above were not validated at [facility]. Results from pediatric patients should be interpreted in conjunction to the patient's age, height and muscle mass. Sodium 140 135 - 145 mmol/L CERNER MILLENNIUM Potassium 3.9 3.5 - 5.0 mmol/L CERNER MILLENNIUM Comment: Please note: ??Patients with WBC >100,000 may have falsely elevated Potassium levels. ??For accurate Potassium quantification in these patients send serum separator tube (gold top) for subsequent determinations. ??Contact the Clinical Chemistry Laboratory if there are any questions. Chloride 108(H) 98 - 107 mmol/L CERNER MILLENNIUM Carbon Dioxide 27 22 - 31 mmol/L CERNER MILLENNIUM Anion Gap 5 5 - 15 mmol/L CERNER MILLENNIUM Calcium 9.0 8.5 - 10.5 mg/dL CERNER MILLENNIUM Protein, Total 6.4 6.4 - 8.3 gm/dL CERNER MILLENNIUM Albumin 4.2 3.2 - 5.2 gm/dL CERNER MILLENNIUM Aspartate Aminotransferase 18 0 - 30 unit/L CERNER MILLENNIUM Alanine Aminotransferase 17 0 - 30 unit/L CERNER MILLENNIUM Alkaline Phosphatase 42 40 - 104 unit/L CERNER MILLENNIUM Bilirubin, Total 0.2 0.2 - 1.3 mg/dL CERNER MILLENNIUM Bilirubin, Direct <0.1 0.0 - 0.3 mg/dL [facility] MILLENNIUM Est Glomerular Filtration Rate >60 >=60 [facility] Comment: The National Kidney Disease Education Program [...] J Am Soc Nephrol;6:1963-72. Blood specimen (specimen) 03/05/2012 8:55 AM EST 03/05/2012 9:06 AM EST Narrative Resulting Agency Comment Spec In Lab Myron Cruz MD CHEMISTRY ORDERABL ES Performing Organization Address [facility]/ZIP Co de Phone Number CERNER MILLENNIUM * (ABNORMAL) CBC (with Diff) (03/05/2012 8:55 AM EST) White Blood Cell 1.4(Criti mario) 4.0 - 10.0 x10(3)/mc L CERNER MILLENNIUM Red Blood Cell 3.51(L) 3.93 - 5.22 x10(6)/mc L CERNER MILLENNIUM Hemoglobin 10.9(L) 11.2 - 15.7 gm/dL CERNER MILLENNIUM Hematocrit 31.7(L) 34.0 - 45.0 % CERNER MILLENNIUM Mean Cell Volume 90.3 79.0 - 94.0 fL CERNER MILLENNIUM Mean Cell Hemoglobin 31.1 26.6 - 32.2 pg CERNER MILLENNIUM Mean Cell Hemoglobin Concentration 34.4 32.0 - 36.5 gm/dL CERNER MILLENNIUM Platelet 273 145 - 370 x10(3)/mc L CERNER MILLENNIUM RDW Standard Deviation 42.1 35.0 - 46.0 fL CERNER MILLENNIUM RDW coefficient of variation 13.2 10.9 - 14.4 % CERNER MILLENNIUM Mean Platelet Volume 9.0 9.0 - 12.0 fL CERNER MILLENNIUM Blood specimen (specimen) 03/05/2012 8:55 AM EST 03/05/2012 9:06 AM EST Narrative Resulting Agency Comment Spec In Lab Myron Cruz MD HEMATOLOGY ORDERAB LES CERNER MILLENNIUM * (ABNORMAL) CBC (with Diff) (02/20/2012 7:45 AM EST) White Blood Cell 1.1(Criti mario) 4.0 - 10.0 x10(3)/mc L CERNER MILLENNIUM Red Blood Cell 3.61(L) 3.93 - 5.22 x10(6)/mc L CERNER MILLENNIUM Hemoglobin 11.1(L) 11.2 - 15.7 gm/dL CERNER MILLENNIUM Hematocrit 32.5(L) 34.0 - 45.0 % CERNER MILLENNIUM Mean Cell Volume 90.0 79.0 - 94.0 fL CERNER MILLENNIUM Mean Cell Hemoglobin 30.7 26.6 - 32.2 pg CERNER MILLENNIUM Mean Cell Hemoglobin Concentration 34.2 32.0 - 36.5 gm/dL CERNER MILLENNIUM Platelet 314 145 - 370 x10(3)/mc L CERNER MILLENNIUM RDW Standard Deviation 43.0 35.0 - 46.0 fL CERNER MILLENNIUM RDW coefficient of variation 13.2 10.9 - 14.4 % CERNER MILLENNIUM Mean Platelet Volume 8.7(L) 9.0 - 12.0 fL CERNER MILLENNIUM Blood specimen (specimen) 02/20/2012 7:45 AM EST 02/20/2012 7:56 AM EST Narrative Resulting Agency Comment Spec In Lab Myron Cruz MD HEMATOLOGY ORDERAB LES Performing Organization Address City/State/[facility] Co de Phone Number MAGDALENA CARTER documented in this encounter Visit Diagnoses Diagnosis Hodgkin's lymphoma- Primary Hodgkin's disease, unspecified Hodgkin's lymphoma Hodgkin's disease, unspecified documented in this encounter Care Teams Forms Analyst Relationship Specialty Start Date End Date Arabella Villarreal MD [address] [place] [address] PCP - General 09/16/11 documented as of this encounter
--- OUTSIDE RECORDS SUMMARY | 2024-04-07 01:42 | XMS_ITS | Encounter Summary ---
Author Organization [facility] [place] [address] Care Team Providers Care Photoengraving Etcher Apprentice Name Role Phone Arabella Villarreal MD Primary Care Provider [phone] Encounter Details Date Type Department Care Team (Late st Contact Info) Description 02/06/2012 External Results Hematology [place] [address] Myron Cruz MD [facility] [address] [place] [address] Social History Tobacco Use Types Packs/Day Years [...] on filedocumented in this encounter Care Teams Photoengraving Etcher Apprentice Relationship Specialty Start Date End Date Arabella Villarreal MD [address] [place], [place] [id number] PCP - General 09/16/11 documented as of this encounter
--- OUTSIDE RECORDS SUMMARY | 2024-04-07 01:42 | XMS_ITS | Encounter Summary ---
[place] [address] Care Team Providers Care Senior Infrastructure Architect Name Role Phone Arabella Villarreal MD Primary Care Provider [phone] Reason for Visit * Reason Comments Lymphoma Encounter Details Date Type Department Care Team (Latest Contact Info) Description 03/05/2012 8:37 AM EST - 03/05/2012 11:59 PM EST Hospital Encounter [place]ematology [place] [address] Hodgkin's lymphoma Social History Tobacco Use Types [...] Sign Reading Time Taken Comments Blood Pressure 142/82 03/05/2012 2:15 PM EST Pulse 93 03/05/2012 2:15 PM EST Temperature 37.2 ??C (99 ??F) 03/05/2012 2:15 PM EST Respiratory Rate 16 03/05/2012 2:15 PM EST Oxygen Saturation 98% 03/05/2012 2:15 PM EST Inhaled Oxygen Concentration - - Weight - - Height - - Body Mass Index - - documented in this encounter Medications at Time [...] as directed. 4 tablet 0 02/20/2012 07/24/2012 zolpidem (AMBIEN) 5 mg tabletIndications:H odgkin's lymphoma Take by mouth. Take 1-2 tablets nightly as needed for sleep. 30 tablet 0 11/22/2011 03/19/2012 loratadine (CLARITIN) 10 mg tabletIndications:S easonal allergies Take 10 mg by mouth daily. Indications: Seasonal allergies 11/20/2011 06/17/2013 lidocaine-prilocain e (EMLA) creamIndications:Ho dgkin's disease Apply topically. Apply liberally to [facility] 30-60 minutes prior to lab [...] Gastroesophageal Reflux 04/02/19 23 vitamin 27 & [id number] 60 mg iron-1 mg tablet Take 1 tablet by mouth daily. 04/02/2022 documented as of this encounter Progress Notes * Janiya Mai RN - 03/05/2012 11:44 AM EST Patient Name: Chasity Gallo Patient Age: 31 y.o. Birthdate: 1980 Admit date: 03/05/2012 Attending Physician: Shanti bingham. providers found TIME TREATMENT STARTED: 1120 TIME TREATMENT ENDED: 1425 Chasity Gallo, 31 y.o. female with diagnosis of Hodgkin Lymphoma is here for chemotherapy infusion of ABVD. PROTOCOL: [id number] CYCLE: 06/04 DAY: 1 S: Pt. offers no new complaints at this time. O: Chemotherapy orders independently verified for correct drug name, route and dosage per patient'sheight, weight and BSA by Janiya Mai RN and onsite pharmacist. Mediport previously accessed, NS drawn up from vials [place] flushes. REACTIONS (DESCRIPTION, TIME, INTERVENTION AND EFFECTIVENESS) Tylenol 650 mg PO Aloxi 0.25 mg Iv Hydrocortisone 100 mg IV Pepcid 20 mg IV Emend 150 mg IV Adriamycin 53 mg IV +brisk blood return noted every 3-5 ml with free flowing NS Vinblastine 13 mg IV +brisk blood return noted every 3-5 ml with free flowing NS Bleomycin 21 units IV Dacarbazine 791 mg IV Ativan at start of Dacarbazine per pt request, pt not feeling well. Line flushed with vials of NS, Heparin instilled by Cyndy Alfaro A: Pt. Tolerated treatment well. Chasity Gallo [...] mg, Oral, ONCE, 1 dose, On Marleny 03/05/12 at 1130, Before Bleomycin on day 1 and day 15. Maximum dose of acetaminophen is 4000 mg from all sources in 24 hours., Routine Given 03/05/2012 11:30 AM EST 650 mg bleomycin (BLEOCIN) 21 Units in sodium chloride 0.9% 57 mL chemo infusion 21 Units, Intravenous, ONCE, 1 dose, On Marleny 03/05/12 at 1115, Administer over 30 Minutes, 1 unit = 1 mg New Bag 03/05/2012 1:04 PM EST 21 Units 114 mL/hr dacarbazine (DTIC) 791 mg in dextrose 5% 329.1 mL chemo infusion 791 mg, Intravenous, ONCE, 1 dose, On Marleny 03/05/12 at 1115, Administer over 30 Minutes New Bag 03/05/2012 1:37 PM EST 791 mg 658.2 mL/hr DOXOrubicin (ADRIAMYCIN) chemo injection 53 mg 53 mg, Intravenous, ONCE, 1 dose, On Marleny 03/05/12 at 1115, Administer over 5 Minutes, Vesicant/irritant. Avoid extravasation Given 03/05/2012 12:51 PM EST 53 mg 318 mL/hr famotidine (PEPCID) injection 20 mg 20 mg, Intravenous, ONCE, 1 dose, On Marleny 03/05/12 at 1130, Pre-Treatment, day 1 and day 15. Given 03/05/2012 11:50 AM EST 20 mg fosaprepitant (EMEND) 150 mg in sodium chloride 0.9% 155 mL infusion 150 mg, Intravenous, ONCE, 1 dose, On Marleny 03/05/12 at 1130, Administer over 30 Minutes, 30 minutes prior to chemotherapy. New Bag 03/05/2012 12:05 PM EST 150 mg 310 mL/hr hydrocortisone sodium succinate (PF) (SOLU-CORTEF) injection 100 mg 100 mg, Intravenous, ONCE, 1 dose, On Marleny 03/05/12 at 1130, Before Bleomycin on day 1 and day 15. Given 03/05/2012 11:35 AM EST 100 mg LORazepam (ATIVAN) tablet 0.5-1 mg 0.5-1 mg, Oral, EVERY 4 HOURS PRN, Starting on Marleny 03/05/12 at 1111, Until 11/20/14 at 0137, Anxiety, Nausea, Vomiting, Please give additional 0.5mg Ativan by mouth prior to discharge. May give IV if unable to take po., Routine Given 03/05/2012 1:43 PM EST 0.5 mg palonosetron (ALOXI) injection 0.25 mg 0.25 mg, Intravenous, ONCE, 1 dose, On Marleny 03/05/12 at 1130, Pre-Chemotherapy., Routine Given 03/05/2012 11:30 AM EST 0.25 mg vinBLAStine (VELBAN) chemo injection 13 mg 13 mg, Intravenous, ONCE, 1 dose, On Marleny 03/05/12 at 1115, Administer over 5 Minutes, FOR IV USE ONLY. FATAL IF GIVEN BY OTHER ROUTES. Vesicant/irritant Avoid extravasation Given 03/05/2012 12:58 PM EST 13 mg 156 mL/hr documented in this encounter Care Teams Senior Infrastructure Architect Relationship Specialty Start Date End Date Arabella Villarreal MD [address] [place] [address] PCP - General 09/16/11 documented as of this encounter
--- OUTSIDE RECORDS SUMMARY | 2024-04-07 01:42 | XMS_ITS | Encounter Summary ---
[place] [address] Care Team Providers Care Inspector And Sorter Name Role Phone Arabella Villarreal MD Primary Care Provider [phone] Encounter Details Date Type Department Care Team (Late st Contact Info) Description 01/09/2012 11:00 AM EST Office Visit Hematology [place] [phone] Hodgkin's lymphoma (Primary Dx) Social History Tobacco [...] Sign Reading Time Taken Comments Blood Pressure - - Pulse - - Temperature - - Respiratory Rate - - Oxygen Saturation - - Inhaled Oxygen Concentration - - Weight 92.9 kg (204 lb 12.9 oz) 012 10:20 AM EST Height 168.7 cm (5' 6.42) 01/09/2012 1 0:20 AM EST Body Mass Index 32.64 01/09/2012 10:20 AM EST documented in this encounter Patient Instructions * Patient Instructions* Olga Espinoza RN - 01/09/2012 10:57 AM EST Your blood counts are made up of white blood cells (WBC), which fight infection, red blood cells that carry oxygen, and platelets, which help to stop bleeding. A component of your white blood cell count are neutrophils (ANC). These infection-fighting cells inyour blood were 0.57 today, which places you at an increased risk of infection. A normal neutrophilcount is considered over 1.5. While your ANC is low, it is important to watch carefully for any signs or symptoms of infection, including: ?? Cough ?? Sore throat ?? Burning with urination ?? Diarrhea ?? Redness, swelling and tenderness of the skin ?? Fever (above 100.4 degrees Fahrenheit) Please monitor your temperature twice a day and write it down. Call our office immediately if your temperature is 100.4 degrees Fahrenheit or higher and/or if you develop any of the signs of infection listed above. What to do while your WBC count is low: ?? Drink at least 32 ounces of non-caffeinated liquids daily. ?? Get enough rest. ?? Wash hands often, especially before and after meals. ?? Avoid crowds, stay away from sick people, and wear a mask in public areas if instructed by your provider. 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 Evaluated by Cyndy Alfaro APRN, please see her note for details. Chasity states that she feels generally well today. 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 Denies any colds, fevers, chills, or flu symptoms. Endorses constant headaches that occurred every day last week. Using excedrin with benefit, and also has been increasing her oral hydrationwhen she feels a headache coming on. Has been trying to avoid caffeine due to it's dehydrating effects and understanding that she should avoid it during chemotherapy. Chasity states that she had a few more mouth sores, which resolved after rinsing with Biotene. Also experienced hemorrhoids, worstthe week following chemotherapy. Denies constipation/diarrhea. Of note, Chasity reports difficulty with anticipatory nausea and anxiety related to nausea experienced at the end of her C3D15 infusion. Aerospace Stress Engineer and Chasity have discussed her preferred management plan, including avoidance of pre-filled saline syringes when accessing/flushing port, and distraction techniques. Chasity states that she already feels better this morning, as the saline flushes used to access her port were not pre-filled. Also took Ativan prior to appointments today. Aerospace Stress Engineer to requestprivate room for patient today, as well as DVD player for distraction purposes. STUDY ASSESSMENTS COMPLETED CBC, CMP, Physical exam, AE assessment CHEMOTHERAPY I verified that the dose ordered is consistent with treatment plan per protocol. Dose calculation double-checked. Pt BSA- 2.09; doxorubicin ordered dose/m2 = 25 mg/m2, total doxorubicin dose ordered = 52 mg; bleomycin ordered dose/m2 = 10 units/m2, total bleomycin dose ordered = 21 units; vinblastine ordered dose/m2 = 6 mg/m2, total vinblastine dose ordered = 12 mg; dacarbazine ordered dose/m2 = 3 75 mg/m2, total dacarbazine dose ordered = 775 mg. ANC 0.57 today. Per protocol (section 9.1.1, page 35), [...] Zofran; tylenol/excedrin prn 5 Headache 1 10/27/11 ongoing Excedrin prn; increased hydration 6 Pain 1 10/19/11 10/22/11 Area of [...] 1 11/07/11 ongoing sensitivity noted with hair loss 18 Rash acneiform 1 11/07/11 01/09/12 Facial [...] Fading redness noted 26 Insomnia 1 12/26/11 ongoing Ambien 10 mg at bedtime prn 27 Hemorrhoids 2 12/26/11 ongoing Using topical hemorrhoidal ointment prn 28 Mucositis 1 12/27/11 ongoing Biotene rinses prn 29 Anxiety 2 12/26/11 ongoing Ativan, avoidance of anxiety-provoking stimuli, distraction 30 White blood cell decreased 2 10/31/11 11/28/11 Infection prevention measures 31 White blood cell decreased 3 11/28/11 12/12/11 Infection prevention measures 32 White blood cell decreased 2 12/12/11 12/26/11 Infection prevention measures 33 White blood cell decreased 3 12/26/11 ongoing Infection prevention measures 34 Neutrophil count decreased 3 10/31/11 ongoing Neutropenic precautions EDUCATION PROVIDED Lab results reviewed with patient and , including continued neutropenic status. Neutropenic precautions and signs/symptoms of infection reviewed. Printed AVS, including neutropenic precautions, reviewed and given to Chasity. Encouraged Chasity to use Tucks pads if needed for hemorrhoid flares. Cyndy Alfaro APRN discussed that caffeine may be consumed in reasonable amounts while on chemotherapy, so long as those fluids are not counted towards her recommended fluid intake for the day. PLAN 1. Subject agrees to continue on study [id number] per protocol. 2. Next visit (C4D15) to be scheduled for 01/24/12 to include: Labs, physical exam, and ABVD infusion per protocol. Patient verbalizes understanding of, and agreement with, plan. Advised to contact this office for any questions/concerns, as well as for any new or worsening symptoms. documented in this encounter Plan of Treatment Not on file documented as of this encounter Visit Diagnoses Diagnosis Hodgkin's lymphoma- Primary Hodgkin's disease, unspecified documented in this encounter Care Teams Inspector And Sorter Relationship Specialty Start Date End Date Arabella Villarreal MD [address] [place] [address] PCP - General 09/16/11 documented as of this encounter
--- OUTSIDE RECORDS SUMMARY | 2024-04-07 01:42 | XMS_ITS | Encounter Summary ---
[place] [address] Care Team Providers Care Presetter Operator Name Role Phone Arabella Villarreal MD Primary Care Provider [phone] Reason for Visit * Reason Onset Date Comments Prior Authorization 01/20/2012 PA for Hair Prosthesis Encounter Details Date Type Department Care Team (Late st Contact Info) Description 01/20/2012 Telephone Hematology [place] [phone] Irlanda Brown, knapsack sprayer (PA for Hair Prosthesis) Social History Tobacco Use Types Packs/Day Years [...] encounter Miscellaneous Notes * Telephone Encounter - Irlanda Brown, RN - 01/22/2012 9:00 AM EST Spoke with Santiago, vaccine key customer leader at [facility]. He states that form was received but has not yetbeen reviewed. He states that requests are processed within 15 business days, prioritization is given to life-threatening conditions. Re-iterated that this RN requested urgent processing for PA as ptis experiencing hair loss and this is impacting her quality of life. He states he will note RN request on account again. RN to f/u with insurance company early week 01-27-12 if no response. Spoke to Olga Espinoza, research RN, to update on PA process. She states she will discuss with pt atupcoming appointment on 01-24-12. * Telephone Encounter - Irlanda Brown RN - 01/20/2012 4:03 PM EST PRIOR AUTHORIZATION Authorization for: Wig ([facility] [id number]) Rationale: Alopecia (704.00), Hodgkin's lymphoma (201.9) Source of authorization: [facility], ID #[id number] Authorization: Spoke Blanca who stated that PA form needed to be competed and faxed in to [phone]. RN completed form and faxed to above number. Awaiting response. documented in this encounter Plan of Treatment Not on file documented as of this encounter Visit Diagnoses Not on filedocumented in this encounter Care Teams Presetter Operator Relationship Specialty Start Date End Date Arabella Villarreal MD [address] [place] [address] PCP - General 09/16/11 documented as of this encounter
--- OUTSIDE RECORDS SUMMARY | 2024-04-07 01:42 | XMS_ITS | Encounter Summary ---
[place] [address] Care Team Providers Care Wildlife Removal Specialist Name Role Phone Arabella Villarreal MD Primary Care Provider [phone] Encounter Details Date Type Department Care Team (Late st Contact Info) Description 02/20/2012 8:30 AM EST Office Visit Hematology [place] [phone] Hodgkin's lymphoma (Primary Dx) Social History Tobacco [...] * Patient Instructions* Olga Espinoza RN - 02/20/2012 12:29 PM EST Medication instructions: 1. Starting on 02/21/12, take Zantac 1 daily for 1 week and then as needed. You may also use TUMS or Mylanta as needed for more immediate relief. 2. At the first sign of vaginal itching, take Diflucan 150 mg by mouth for 1 dose. Please call if this does not clear up the itching/symptoms. Lab instructions/precautions: Your blood counts are made up of white blood cells (WBC), which fight infection, red blood cells that carry oxygen, and platelets, which help to stop bleeding. A component of your white blood cell count are neutrophils (ANC). These infection-fighting cells inyour blood were Lab Results Component Value Date NEUTROABS 0.21* 02/20/2012 today, which places you at an increased risk of infection. A normal neutrophil count is considered over 1.5. 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 Evaluated by Cyndy Alfaro APRN, please see her note for details. Please see telephone notes for interval history. Chasity states that she had some nausea after her last treatment, although it was not unusual and tolerable with the compazine. Right hand swelling continues as pr eviously. Endorses occasional mild headaches which are not intolerable. Also had sore throat for 4-5 days, which resolved on it's own. Scalp has been very sensitive after chemotherapy, which ismitigated with the use of Nioxin shampoo. Recently, the undergrowth of her hair has began to grow back. Experienced moderate PMS symptoms, for which she took Midol with relief and subsequently had a normal menstrual period. Of note, Chasity reports that I get really itchy after chemo in the vaginal area both external and internal. Script for diflucan 150mg by mouth x1 dose for any signs of vaginal itching, dispense #4 tablets generated and signed per order of GRAINING OPERATOR. As mentioned in telephone note from 02/19/12, Chasity also presented to local ER for chest pain yesterday, which she describes as feeling like a bubble under her lower sternum. Denies any radiatingof pain or sweating associated with this pain. States that she did eat differently yesterday due toa hectic day at work, and was not able to snack as she usually does. Records from [facility] obtained, showing negative CXR, negative EKG, and unremarkable labs other than neutropenia per MD note. All records scanned into [facility] patient's chart. For anticipatory nausea, Chasity continues with plan of taking Ativan prior to chemo appointments at [facility]. Requests private room for today and will use DVDs, music, etc., for distraction purposes while in infusion suite. STUDY ASSESSMENTS COMPLETED CBC, Physical exam, AE assessment CHEMOTHERAPY I verified that the dose ordered is consistent with treatment plan per protocol. Dose calculation double-checked. Pt BSA- 2.08; doxorubicin ordered dose/m2 = 25 mg/m2, total doxorubicin dose ordered = 52 mg; bleomycin ordered dose/m2 = 10 units/m2, total bleomycin dose ordered = 21 units; vinblastine ordered dose/m2 = 6 mg/m2, total vinblastine dose ordered = 13 mg; dacarbazine ordered dose/m2 = 3 75 mg/m2, total dacarbazine dose ordered = 780 mg. ANC 0.21 today. Per protocol (section 9.1.1, page 35), [...] Headache 1 10/27/11 ongoing Excedrin prn; increased hydration; mild amounts of [...] in AM 39 Gingival pain 1 02/06/12 Ongoing Frequent oral care and monitoring 40 White blood cell decreased 2 02/06/12 02/20/12 41 White blood cell decreased 3 02/20/12 ongoing Infection prevention measures; neutropenic precautions 42 Neutrophil count decreased 2 02/06/12 02/20/12 43 Neutrophil count decreased 4 02/20/12 ongoing Infection prevention measures; neutropenic precautions 44 Reproductive system and breast disorders-Other 2 02/21/12 ongoing Vaginal itching; oral diflucanscript provided 45 Non-cardiac chest pain 2 02/19/12 02/20/12 ER evaluation 46 Non-cardiac chest pain 1 02/20/12 ongoing Pepcid IV in infusion suite; Zantac scheduled x 1 week EDUCATION PROVIDED Lab results reviewed with patient, including decreased total WBC and ANC. AVS, with patient instructions for diflucan and zantac administration instructions, as well as neutropenic precautions, printed and given to patient/. Continued support and reassurance regarding anticipatory anxiety and nausea offered. PLAN 1. Subject agrees to continue on study [id number] per protocol. 2. Next visit (C6D1) scheduled for 03/05/12 to include: Labs, physical exam, and ABVD [...] unspecified documented in this encounter Care Teams Wildlife Removal Specialist Relationship Specialty Start Date End Date Arabella Villarreal MD [address] [place] [address] PCP - General 09/16/11 documented as of this encounter
--- OUTSIDE RECORDS SUMMARY | 2024-04-07 01:42 | XMS_ITS | Encounter Summary ---
Author Organization [place] [address] Care Team Providers Care Ice Cream Dispenser Name Role Phone Arabella Villarreal MD Primary Care Provider [phone] Encounter Details Date Type Department Care Team (Late st Contact Info) Description 12/27/2011 Telephone [place]ology [place] [phone] Myron Cruz MD [facility] [address] [place] [address] Social History Tobacco Use Types Packs/Day Years [...] Telephone Encounter - Olga Espinoza RN - 12/27/2011 5:09 PM EDT RESEARCH NURSE TELEPHONE NOTE [id number]: Phase II Trial of Response-Adapted Therapy Based on Positron Emission Tomography (PET) for 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 Taking compazine as instructed, which she feels is helping. Hoping to still participate in local benefit tomorrow in her honor. Encouraged patient to contact this office or on-call MD for any questions/concerns, as well as for any new or worsening symptoms. documented in this encounter Plan of Treatment Not on file documented as of this encounter Visit Diagnoses Not on filedocumented in this encounter Care Teams Ice Cream Dispenser Relationship Specialty Start Date End Date Arabella Villarreal MD [address] [place] [address] PCP - General 09/16/11 documented as of this encounter
--- OUTSIDE RECORDS SUMMARY | 2024-04-07 01:42 | XMS_ITS | Encounter Summary ---
Author Organization [facility] [place] [address] Care Team Providers Care Financial Services Rep Name Role Phone Arabella Villarreal MD Primary Care Provider Reason for Visit * Reason Comments Chemotherapy Encounter Details Date Type Department Care Team (Latest Contact Info) Description 01/24/2012 9:36 AM EST - 01/24/2012 11:59 PM [facility] Hospital Encounter [place]ematology [place] [address] Hodgkin's lymphoma Social History Tobacco Use Types [...] daily. Reported on 03/18/2016 Indications: Cold sores zolpidem (AMBIEN) 5 mg tabletIndications:H odgkin's lymphoma Take by mouth. Take 1-2 tablets nightly as needed for sleep. 30 tablet 0 11/22/2011 03/19/2012 loratadine (CLARITIN) 10 mg tabletIndications:S easonal allergies Take 10 mg by mouth daily. Indications: Seasonal allergies 11/20/2011 06/17/2013 lidocaine-prilocain e (EMLA) creamIndications:Ho dgkin's disease Apply topically. Apply liberally to [facility] site 30-60 minutes prior to lab appointment, cover with dressing as instructed. 30 g 2 11/15/2011 07/24/2012 LORazepam (ATIVAN) 0.5 mg tabletIndications:H odgkin's lymphoma Take 1 tablet by mouth every 6 hours as needed (Nausea). 50 tablet 3 11/13/2011 07/24/2012 prochlorperazine (COMPAZINE) 5 mg tabletIndications:H odgkin's lymphoma Take 1 tablet by mouth every 6 hours as needed for Nausea. 30 tablet 2 11/07/2011 02/26/2012 scopolamine (TRANSDERM-SCOP) 1.5 mgIndications:Hodgk in's lymphoma Place 1 patch onto the skin every 72 hours. Use as needed for nausea not relieved by Zofran or Compazine. 10 patch 12 10/22/2011 07/24/2012 ferrous gluconate 325 mg (37.5 mg iron) tablet Take 325 mg by mouth daily (with breakfast). 02/20/20 12 ranitidine (ZANTAC) 150 mg tabletIndications:g astroesophageal reflux disease Take 150 mg by mouth daily as needed. Indications: Gastroesophageal Reflux 04/02/19 23 vitamin 27 & euueceb-tatv-UP 60 mg iron-1 mg tablet Take 1 tablet by mouth daily. 04/02/2022 documented as of this encounter Progress Notes * Glendy Swenson - 02/06/2012 12:07 PM Leno addended by: Glendy Swenson on: 02/06/2012 12:07 PM
Documentation filed: Rx Order Verification Elizabeth James RN - 01/24/2012 4:27 PM ESTEtripp addended by: Elizabeth Steiner RN on: 01/24/2012 4:27 PM
Documentation filed: Inpatient MAR Elizabeth Aguero RN - 01/24/2012 2:11 PM EST Patient Name: Chasity Gallo Patient Age: 31 y.o. Birthdate: 1980 Admit date: 01/24/2012 Attending Physician: Shanti bingham. providers found TIME TREATMENT STARTED: 1120 TIME TREATMENT ENDED: 1410 Chasity Gallo, 31 y.o. female with diagnosis of hodgkins disease is here for chemotherapy infusion of ABVD. PROTOCOL: [id number] CYCLE: 4 WEEK: DAY: 15 S: Pt. offers no complaints at this time. O: Chemotherapy orders independently verified for correct drug name, route and dosage per patient'sheight, weight and BSA by Honorio Steiner RN and onsite pharmacist REACTIONS (DESCRIPTION, TIME, INTERVENTION AND EFFECTIVENESS) none A: Pt. Tolerated treatment well. Chasity Gallo confirms that all questions and issues have been addressed. P: Return to clinic prn documented in this encounter Plan of Treatment Not on file documented as of this encounter Visit Diagnoses Diagnosis Hodgkin's lymphoma Hodgkin's disease, unspecified documented in this encounter Administered Medications Inactive Administered Medications - up to 3 most recent administrations Medication Order MAR Action Action Date Dose Rate Site acetaminophen (TYLENOL) tablet 650 mg 650 mg, Oral, ONCE, 1 dose, On Fri01/24/12 at 1145, Before bleomycin on day 1 and day 15 Maximum dose of acetaminophen is 4000 mg from all sources in 24 hours., Routine Given 01/24/2012 11:45 AM EST 650 mg bleomycin (BLEOCIN) 21 Units in sodium chloride 0.9% 57 mL chemo infusion 21 Units, Intravenous, ONCE, 1 dose, On Fri01/24/12 at 1130, Administer over 30 Minutes, 1 unit = 1 mg New Bag 01/24/2012 12:51 PM EST 21 Units 114 mL/hr dacarbazine (DTIC) 775 mg in dextrose 5% 327.5 mL chemo infusion 775 mg, Intravenous, ONCE, 1 dose, On Fri01/24/12 at 1130, Administer over 30 Minutes New Bag 01/24/2012 1:34 PM EST 775 mg 655 mL/hr DOXOrubicin (ADRIAMYCIN) chemo injection 52 mg 52 mg, Intravenous, ONCE, 1 dose, On Fri01/24/12 at 1130, Administer over 5 Minutes, Vesicant/irritant. Avoid extravasation Given 01/24/2012 12:41 PM EST 52 mg 312 mL/hr fosaprepitant (EMEND) 150 mg in sodium chloride 0.9% 155 mL infusion 150 mg, Intravenous, ONCE, 1 dose, On Fri01/24/12 at 1145, Administer over 30 Minutes, 30 minutes pre-chemotherapy New Bag 01/24/2012 12:00 PM EST 150 mg 310 mL/hr hydrocortisone sodium succinate (PF) (SOLU-CORTEF) injection 100 mg 100 mg, Intravenous, ONCE, 1 dose, On Fri01/24/12 at 1145, Before bleomycin on day 1 and day 15 Given 01/24/2012 11:55 AM EST 100 mg LORazepam (ATIVAN) tablet 0.5-1 mg 0.5-1 mg, Oral, EVERY 4 HOURS PRN, Starting on Fri01/24/12 at 1130, Until Marleny 02/06/12 at 1146, Anxiety, Nausea, Vomiting, May give intravenously if unable to take orally., Routine Given 01/24/2012 3:35 PM EST 0.5 mg palonosetron (ALOXI) injection 0.25 mg 0.25 mg, Intravenous, ONCE, 1 dose, On Fri01/24/12 at 1145, Pre-chemotherapy, Routine Given 01/24/2012 11:45 AM EST 0.25 mg vinBLAStine (VELBAN) chemo injection 12 mg 12 mg, Intravenous, ONCE, 1 dose, On Fri01/24/12 at 1130, Administer over 1 Minutes, FOR IV USE ONLY. FATAL IF GIVEN BY OTHER ROUTES. Vesicant/irritant Avoid extravasation Given 01/24/2012 12:46 PM EST 12 mg 720 mL/hr documented in this encounter Care Teams Financial Services Rep Relationship Specialty Start Date End Date Arabella Villarreal MD [address] [place] [address] [address] [place] [address] PCP - General 09/16/11 documented as of this encounter
--- OUTSIDE RECORDS SUMMARY | 2024-04-07 01:42 | XMS_ITS | Encounter Summary ---
[place] [address] Care Team Providers Care Dairy Farm Supervisor Name Role Phone Arabella Villarreal MD Primary Care Provider Encounter Details Date Type Department Care Team (Late st Contact Info) Description 12/26/2011 10:30 AM EDT Office Visit Hematology [place] [phone] Hodgkin's lymphoma (Primary Dx) Social History Tobacco [...] Progress Notes * Olga Espinoza RN - 12/25/2011 7:33 PM EDT RESEARCH NURSE OFFICE NOTE CYCLE # 3 DAY # 15 (ABVD) 12/26/2011 [id number]: Phase II Trial of Response-Adapted Therapy Based on Positron Emission Tomography (PET) for 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 Evaluated by Cyndy Alfaro APRN, please see her note for details. Chasity states that she feels generally well today. Nausea after C3D1 was similar to previous cycles, tolerable with scopolamine patch, compazine, lorazepam, as well as reflexology/massage. Dysgeusiaand burned feeling in mouth have resolved. Denies any vomiting, mouth sores/pain, heartburn, diarrhea, or constipation. Endorses hemorrhoids, for which she is using OTC ointment with good effect.Chasity reports that her headaches have been better this time around. Mild dizziness continued through 12/16/11, and then subsided without intervention. Hair is still thinning. Last menstrual period started on 12/19/11 and was normal per patient report. Fatigue and scalp sensitivity continue at st able levels, as does insomnia. Chasity states that she has not been taking the Ambien as prescribedfor insomnia due to having a burst of energy in the late evening and not wanting to take the Ambientoo late at night. Continues to work with modifications to schedule as needed. Mild redness to leftforearm and palpable lump observed today. Denies shortness of breath or chest pain/pressure. Per MDrequest, patient to go for repeat doppler study today to rule out DVT. STUDY ASSESSMENTS COMPLETED CBC, CMP, Physical exam, AE assessment CHEMOTHERAPY I verified that the dose ordered is consistent with treatment plan per protocol. Dose calculation double-checked. Pt BSA- 2.07; doxorubicin orde red dose/m2 = 25 mg/m2 , total doxorubicin dose ordered = 52 mg; bleomycin ordered dose/m2 = 10 units/m2, total bleomycin dose ordered = 21 units; vinblastine ordered dose/m2 = 6 mg/m2, total vinblastine dose ordered = 12 mg; dacarbazine ordered dose/m2 = 375 mg/m2, total dacarbazine dose ordered = 776 mg. ANC 0.71 today. Per protocol (section 9.1.1, page 35), [...] prn 5 Headache 1 10/27/11 ongoing Excedrin prn 6 Pain 1 10/19/11 10/22/11 Area of [...] hair loss 18 Rash acneiform 1 11/07/11 ongoing Facial 19 Constipation 1 11/07/11 ongoing Docusate sodium prn 20 Mucositis oral 1 11/18/11 12/26/11 burned feeling in mouth 21 Dizziness 1 11/18/11 ongoing Monitor closely 22 Dysgeusia 1 11/21/11 12/26/11 Metallic taste; helped by chewing gum 23 Insomnia 2 11/21/11 12/26/11 Ambien 10mg at bedtime prn 24 Ear pain 2 11/17/11 11/21/11 Loratidine 10mg daily 25 Injection site reaction 1 11/28/11 ongoing Fading redness noted 26 Insomnia 1 12/26/11 ongoing Ambien 10 mg at bedtime prn 27 Hemorrhoids 2 12/26/11 Ongoing Using topical hemorrhoidal ointment prn EDUCATION PROVIDED Discussed management of superficial vein thrombosis including warm compresses/soaks and ibuprofen 600 mg three times daily to help with discomfort and internal inflammation. Infection prevention measures reviewed by Cyndy Alfaro APRN due to continuing neutropenia. PLAN 1. Subject agrees to continue on study [id number] per protocol. 2. Next visit (C4D1) to be scheduled for 01/09/12 to include: Labs, physical exam, and ABVD infusionper protocol. Patient verbalizes understanding of, and agreement with, plan. Advised to contact this office for any questions/concerns, as well as for any new or worsening symptoms. documented in this encounter Plan of Treatment Not on file documented as of this encounter Visit Diagnoses Diagnosis Hodgkin's lymphoma- Primary Hodgkin's disease, unspecified documented in this encounter Care Teams Dairy Farm Supervisor Relationship Specialty Start Date End Date Arabella Villarreal MD [address] [facility] [place] [address] PCP - General 09/16/11 documented as of this encounter
--- OUTSIDE RECORDS SUMMARY | 2024-04-07 01:42 | XMS_ITS | Encounter Summary ---
Author Organization [facility] [place] [address] Care Team Providers Care Machine Inker Name Role Phone Arabella Villarreal MD Primary Care Provider [phone] Encounter Details Date Type Department Care Team (Late st Contact Info) Description 12/30/2011 Telephone Hematology [place] [phone] Myron Cruz MD [facility] [address] [place] [address] Social History Tobacco Use Types Packs/Day Years [...] Telephone Encounter - Olga Espinoza RN - 12/30/2011 5:28 PM EDT RESEARCH NURSE TELEPHONE NOTE [id number]: Phase II Trial of Response-Adapted Therapy Based on Positron Emission Tomography (PET) for 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 Per Chasity's report, her vitals were stable at her PCP's office. However, Chasity calls to report new onset of chest pains today, described as sharp intermittent pains 5/10 at worst intensity. Patient states that she had a couple of fleeting pains this morning and a couple more this afternoon, worse on the right side more than the left, behind her breast. Denies associated chest pressure, shortness of breath, heartburn, or other symptoms of impending doom. Chasity states that her nausea is normally what it usually is at this time in the cycle. No vomiting, con stipation, diarrhea, or excess flatulence. Chasity states that she is burping some. Endorses headache today, but states that I know I'm not staying hydrated enough. Chasity also states that I hate the way chemo went this past time. Endorses greater difficulty coping with the actual chemotherapy infusion as she gets further along in treatments. Requests that nurses are notified not to use prefilled saline syringes, as these greatly contribute to her nausea. Verbalizes that her coping mechanism of escaping through music and rest was more difficult this time. Discussed all with Dr. Cruz, no new orders or recommendations for urgent evalaution at this time. Per MD recommendations, patient was advised to continue with symptom management, including pain medication if needed. Education Provided: Reviewed s/s of concern including worsening chest pain, shortness of breath, chest pressure, which would warrant emergent evaluation at local ER. Reassurance and support offered in regards to increasing difficulty with chemotherapy treatments. Discussed that her difficulty at this point in the treatments is very common and not something that she is doing, but instead a manifestation of undergoingmany cycles of highly-emetogenic chemotherapy. Spooler Operator Automatic encouraged Chasity to think of ways that we could further support her through her next cycles of chemotherapy. Plan: 1. Pt will continue on study [id number] per protocol. 2. Next visit 01/09/12. Patient verbalizes understanding of, and agreement with, plan. Advised to contact this office for any questions/concerns, as well as for any new or worsening symptoms. documented in this encounter Plan of Treatment Not on file documented as of this encounter Visit Diagnoses Not on filedocumented in this encounter Care Teams Machine Inker Relationship Specialty Start Date End Date Arabella Villarreal MD [address] [place] [address] PCP - General 09/16/11 documented as of this encounter
--- OUTSIDE RECORDS SUMMARY | 2024-04-07 01:42 | XMS_ITS | Encounter Summary ---
Author Organization [facility] [place] [address] Care Team Providers Care Audio/Visual Manager Name Role Phone John Villarreal MD Primary Care Provider [phone] Reason for Visit * Reason Comments Chemotherapy Encounter Details Date Type Department Care Team (Late st Contact Info) Description 12/26/2011 10:00 AM EDT Follow-Up [place]ology [place] [address] Cyndy Alfaro, AIR CARGO SPECIALIST SUPERVISOR [facility] [place] [address] HD (Hodgkin's disease) (Primary Dx) Discharge Disposition: [...] Sign Reading Time Taken Comments Blood Pressure 112/64 12/26/2011 9:41 AM EDT Pulse 74 12/26/2011 9:41 AM EDT Temperature 36.6 ??C (97.9 ??F) 12/26/2011 9:41 AM ED T Respiratory Rate 18 12/26/2011 9:41 AM EDT Oxygen Saturation 100% 12/26/2011 9:41 AM EDT Inhaled Oxygen Concentration - - Weight 91.5 kg (201 lb 11.5 oz) 12/26/2011 9:41 AM EDT Height 168 cm (5' 6.14) 12/26/2011 9:41 AM EDT Body Mass Index 32.42 12/26/2011 9:41 AM EDT documented in this encounter Progress Notes * Cyndy Alfaro, AIR CARGO SPECIALIST SUPERVISOR - 12/26/2011 9:39 AM EDT HEMATOLOGY FOLLOW UP NOTE Vidhi Perez is a 31 y.o. female being seen [...] felt to be less likely. Medications: Current outpatient prescriptions ordered prior to encounter Medication Sig Dispense Refill ??? loratadine (CLARITIN) 10 mg tablet Take 10 mg by mouth daily. Indications: Seasonal allergies ??? lidocaine-prilocaine (EMLA) cream Apply topically. Apply liberally to [facility] site 30-60 minutes prior to lab appointment, cover with dressing as instructed. 30 g 2 ??? LORazepam (ATIVAN) 0.5 mg tablet Take 1 tablet by mouth every 6 hours as needed (Nausea). 50 tablet 3 ??? prochlorperazine (COMPAZINE) 5 mg tablet Take 1 tablet by mouth every 6 hours as needed for Nausea. 30 tablet 2 ??? Lysine HCl 500 mg Tab Take 500 mg by mouth 2 times daily. Indications: Cold sores ??? scopolamine (TRANSDERM-SCOP) 1.[address] 1 patch onto the skin every 72 hours. Use as needed for nausea not relieved by Zofran or Compazine. 10 patch 12 ??? ondansetron (ZOFRAN) 4 mg tablet Take 2 tablets by mouth every 8 hours as needed for Nausea. 20tablet 0 ??? acetaminophen (TYLENOL) 500 mg tablet Take 1,000 mg by mouth every 6 hours as needed. ??? ranitidine (ZANTAC) 150 mg tablet Take 150 mg by mouth daily as needed. Indications: Gastroesophageal Reflux ? ? vitamin 27 & [id number] 60 mg iron-1 mg tablet Take 1 tablet by mouth daily. ??? zolpidem (AMBIEN) 5 mg tablet Take by mouth. Take 1-2 tablets nightly as needed for sleep. 30 tablet 0 ??? ferrous gluconate 325 mg (37.5 mg iron) tablet Take 325 mg by mouth daily (with breakfast). Current facility-administered medications ordered prior to encounter Medication Dose Route Frequency Provider Last Rate Last Dose ??? LORazepam (ATIVAN) injection 0.5-1 mg 0.5-1 mg Intravenous Q4H PRN Myron Cruz MD ??? LORazepam (ATIVAN) tablet 0.5-1 mg 0.5-1 mg Oral Q4H PRN Myron Cruz MD Last Dose: 0.5 mg at 12/12/11 1709 ??? prochlorperazine (COMPAZINE) tablet 5-10 mg 5-10 mg Oral Q6H PRN Myron Cruz MD ??? LORazepam (ATIVAN) injection 0.5-1 mg 0.5-1 mg Intravenous Q4H PRN Myron Cruz MD ??? LORazepam (ATIVAN) tablet 0.5-1 mg 0.5-1 mg Oral Q4H PRN Myron Cruz MD Last Dose: 1 mgat 11/28/11 1400 Interim History: Vidhi Perez is here for C3D15 ABVD on clincal trial. Since her last cycle, she has been relatively well though continues to struggle with delayed and anticipatory nausea for which she uses scopolamine patch, compazine, lorazepam, as well as reflexology/massage to get through it. No vomiting though admits to little intake of solid foods for 2-3 days following chemotherapy after which her appetite returns to normal. No heartburn, diarrhea or constipation. She has had intermittent hemorrhoids which respond to OTC topical medications. She describes less headaches this cycle. Her hair continues to thin but she is pleased to not have lost in yet. Her scalp remain sensitive. No fevers, chills, infections or intercurrent illnesses. No drenching sweats, unintentional weight loss or palpable adenopathy. Her only new complaint is that of mild redness to left forearm and a small subcutaneous knot for which she was evaluated by her PCP and though to be a superficial thrombophlebitis. A doppler study is scheduled today. Review of Systems: Hematological and Lymphatic ROS: negative Energy level: waxes and wanes, down for 2-3 days following chemotherapy but then bounces back with good energy sustained through to be next treatment. She does tire by the end of the day. Pain: left forearm is mildly uncomfortable as described above Appetite: returned to baseline Fevers/chills/sweats: No Bruising/bleeding/melena: No Recent infections: No Nausea/vomiting/diarrhea/constipation: as described above SOB/GIBSON/chest pain: No Change in adenopathy or other masses: No Unexpected weight loss or gain: No, weight stable Skin rashes or petechiae: ~ 3 cm are of erythema but no increased warmth on anterior left forearm. Small area or firmness centrally. Mild discomfort on palpation. No increased warmth or regional swelling. Other systems: No peripheral neuropathy A 12-pt review of systems was performed and was otherwise negative except for above. Physical Exam: BP 112/64 Pulse 74 Temp(Src) 36.6 ??C (97.9 ??F) (Oral) Resp 18 Ht 168 cm (5' 6.14) Wt 91.5 kg (201 lb 11.5 oz) BMI 32.42 kg/m2 SpO2 100% Gen: well appearing, well developed, well nourished 31-year-old woman in no acute distress. She is accompanied to clinic by her today. Hair thinning, but no complete alopecia HEENT: PERRL, no oral lesions, mucus membranes moist without ulcerations, hyperemia, exudative plaques or lesions. LN survey: no palpable cervical or supraclavicular adenopathy Chest: clear to ausculatation bilaterally; Port accessed in upper chest wall without tenderness on palpation or erythema. CV: S1S2, RRR, no murmurs, rubs, gallops Abd: soft, flat, non-tender, no palpable masses or hepatosplenomegaly. NABS.. Ext: no edema Neuro: grossly intact MS: no bony tenderness Laboratory: Results for VIDHI PEREZ ( ) as of 01/08/2012 11:28 Ref. Range 12/26/2011 09:25 WBC Latest Range: 4.0-10.0 x10(3)/mcL 1.6 (CRIT) RBC Latest Range: 3.93-5.22 x10(6)/mcL 3.76 (L) Hemoglobin Latest Range: 11.2-15.7 gm/dL 11.0 (L) Hematocrit Latest Range: 34.0-45.0 % 32.8 (L) MCV Latest Range: 79.0-94.0 fL 87.2 MCH Latest Range: 26.6-32.2 pg 29.3 MCHC Latest Range: 32.0-36.5 gm/dL 33.5 RDWSD Latest Range: 35.0-46.0 fL 48.5 (H) RDWCV Latest Range: 10.9-14.4 % 15.3 (H) Platelets Latest Range: 145-370 x10(3)/mcL 287 MPV Latest Range: 9.0-12.0 fL 8.8 (L) Neutr Abs (ANC) Latest Range: 1.50-6.30 x10(3)/mcL 0.71 (L) Neutrophil % Latest Range: 34-71 % 45 Lymphocyte % Latest Range: 19-53 % 35 Monocyte % Latest Range: 4-13 % 10 Eosinophil % Latest Range: 0-7 % 4 Basophil % Latest Range: 0-2 % 6 (H) Neutrophil Abs Latest Range: 1.5-6.3 x10(3)/mcL 0.7 (L) Lymphocyte Abs Latest Range: 1.0-3.6 x10(3)/mcL 0.6 (L) Monocyte Abs Latest Range: 0.2-1.0 x10(3)/mcL 0.2 Eosinophil Abs Latest Range: 0.0-0.5 x10(3)/mcL 0.1 Basophil Abs Latest Range: 0.0-0.2 x10(3)/mcL 0.[address] No range found 100 Plat Estimate No range found Normal RBC Morphology No range found Normal Giant Platelets No range found Less than 1 Radiographic: Venous doppler study of left arm obtained early today and reveals the following; Findings: There is a thrombosed superficial vein from the left mid forearm tothe antecubital fossa. Patent left internal jugular, innominate, subclavian and axillary veins with respirophasic, Dopplerwaveforms and no evidence of thrombus. Patent compressible brachial, cephalic and basilic veins with no evidence of thrombus. Interpretation: Superficial vein thrombus in a Left forearm vein. No evidence of Left upper extremity DVT. Assessment/Plan: Stage IIA HL, ABVD on study PET2 negative central review -Continue with treatment today as prescribed, day 15, cycle #3 ABVD on [id number]. No dose modifications necessary. -Counseled once again about neutropenic fever given ANC < 1000. -As in prior cycles, will give Aloxi and Emend today and continue with scopolamine patch changing it in 48 hours to cover through day 7 for delayed nausea. Compazine for breakthrough nausea and Ativan for stress, insomnia. --RTC in 2 weeks for Day 1, cycle #4 Superficial thrombophlebitis documented by venous doppler exam today --warm compresses/soaks QID and PRN --Ibuprofen 600 mg TID x 3-5 days then PRN to help with discomfort and inflammation. Total time spent with patient: 30 minutes Time spent in counseling and coordination of care: 20 minutes Cyndy Alfaro, MSN, AIR CARGO SPECIALIST SUPERVISOR Nurse Practitioner Section of Hematology/Oncology [facility] Cc: JOHN VILLARREAL MD documented in this encounter Plan of Treatment Not on file documented as of this encounter Visit Diagnoses Diagnosis HD (Hodgkin's disease)- Primary Hodgkin's disease, unspecified documented in this encounter Care Teams Audio/Visual Manager Relationship Specialty Start Date End Date John Villarreal MD [address] [facility] [place] [address] PCP - General 09/16/11 documented as of this encounter
--- OUTSIDE RECORDS SUMMARY | 2024-04-07 01:42 | XMS_ITS | Encounter Summary ---
[place] [address] Care Team Providers Care Brimming Machine Operator Name Role Phone Aarbella Villarreal MD Primary Care Provider [phone] Encounter Details Date Type Department Care Team (Late st Contact Info) Description 03/05/2012 9:30 AM EST Office Visit Hematology [place] [id number] Hodgkin's lymphoma (Primary Dx) Social History Tobacco [...] as of this encounter Progress Notes * Minerva Humphrey RN - 03/05/2012 2:43 PM EST RESEARCH NURSE OFFICE NOTE CYCLE #6 DAY #1 03/05/2012 [id number]: Phase II Trial of Response-Adapted Therapy Based on Positron Emission Tomography (PET) for Bulky Stage I and Stage II Classical Hodgkin Lymphoma (HL) RUT Gaspar presented to hem-onc clinic, accompanied by and aunt, for day 1 of cycle 6 of ABVD as per protocol. Evaluated by Cyndy Alfaro APRN, please see her note for details. Chasity states that this was a very, very normal post chemo pattern for her, denying new or worsening symptoms. States that she is thrilled this is her second to last treatment. Denies continuation of previously reported sore throat and headaches stating that she has not used Excedrin in 2 weeks. Reports that shehas been using ranitidine daily and has had no further bubble or chest pain type symptoms. Endorses nausea, stating that it was no worse than usual, manageable with her home antiemetics.For anticipatory nausea, Chasity continues with plan of taking Ativan prior to chemo appointments at [facility]. Reports that she had taken the prescribed fluconazole and has had no further vaginal complaints. Cori have refills of this should she experience a similar issue in the future. Denies change in scalp tenderness post chemo. Stable right hand edema, patient states that this is typically worse in the morning and improves throughout the day. Denies pain or any other new or worsening symptoms. STUDY ASSESSMENTS COMPLETED CBC, CMP, Physical exam, AE assessment CHEMOTHERAPY I verified that the dose ordered is consistent with treatment plan per protocol. Dose calculation double-checked. Pt BSA- 2.11; doxorubicin ordered dose/m2 = 25 mg/m2, total doxorubicin dose ordered = 53 mg; bleomycin ordered dose/m2 = 10 units/m2, total bleomycin dose ordered = 21 units; vinblastine ordered dose/m2 = 6 mg/m2, total vinblastine dose ordered = 13 mg; dacarbazine ordered dose/m2 = 3 75 mg/m2, total dacarbazine dose ordered = 791 mg. ANC 0.6 today. Per protocol (section 9.1.1, page 35), [...] patient, including decreased total WBC and ANC. Continued support and reassurance regarding anticipatory anxiety and nausea offered. PLAN 1. Subject agrees to continue on study [id number] per protocol. 2. Next visit (C6D15) scheduled for 03/19/12 to include: Labs, AE assessment, and ABVD infusion perprotocol. Patient verbalizes understanding of, and agreement with, plan. Advised to contact this office for any questions/concerns, as well as for any new or worsening symptoms. documented in this encounter Plan of Treatment Not on file documented as of this encounter Visit Diagnoses Diagnosis Hodgkin's lymphoma- Primary Hodgkin's disease, unspecified documented in this encounter Care Teams Brimming Machine Operator Relationship Specialty Start Date End Date Arabella Villarreal MD [address] [place] [address] [address] [place] [address] PCP - General 09/16/11 documented as of this encounter
--- OUTSIDE RECORDS SUMMARY | 2024-04-07 01:42 | XMS_ITS | Encounter Summary ---
[place] [address] Care Team Providers Care Pipe Changer Name Role Phone Arabella Villarreal MD Primary Care Provider [phone] Encounter Details Date Type Department Care Team (Late st Contact Info) Description 12/26/2011 11:30 AM EDT Office [place] [phone] Nimisha Ferreira RVT Hodgkin's lymphoma (Primary Dx) Social History Tobacco [...] Procedure Name Priority Date/Time Associated Diagnosis Comments DUPLEX FOR DVT, ARM, UNILAT Routine 12/26/2011 11:33 AM EDT Hodgkin's lymphoma documented in this encounter Results * Duplex for DVT, Arm, Unilat (12/26/2011 11:33 AM EDT) VB Text Report Department: Vascular Surgery Lab Patient: [id number] (VIDHI PEREZ) CPT Code: 78794 ICD-9: 451.82 Referring Physician: MYRON CRUZ Indication: ?? Left forearm redness and pain, previous site of peripheral IV; evaluate for clot ICD9 Diagnosis Code: Left 451.82 Findings: There is a thrombosed superficial vein from the left mid forearm to the antecubital fossa. Patent left internal jugular, innominate, subclavian and axillary veins with respirophasic, Doppler waveforms and no evidence of thrombus. Patent compressible brachial, cephalic and basilic veins with no evidence of thrombus. Interpretation: Superficial vein thrombus in a Left forearm vein. No evidence of Left upper extremity DVT. Comparison: No previous study in our vascular lab database for comparison. Signed by GUERA RUIZ on 2011-12-27 12:33:44 PM VAS[facility] VB Text Report End of Report [facility] 12/26/2011 11:3 3 AM EDT yMron Cruz MD VASCULAR ORDERABLE S [facility] documented in this encounter Visit Diagnoses Diagnosis Hodgkin's lymphoma- Primary Hodgkin's disease, unspecified documented in this encounter Care Teams Pipe Changer Relationship Specialty Start Date End Date Arabella Villarreal MD [address] [place] [address] PCP - General 09/16/11 documented as of this encounter
--- OUTSIDE RECORDS SUMMARY | 2024-04-07 01:42 | XMS_ITS | Encounter Summary ---
[place] [address] Care Team Providers Care Livestock Broker Name Role Phone Arabella Villarreal MD Primary Care Provider [phone] Reason for Visit * Reason Comments Research Encounter Details Date Type Department Care Team (Late st Contact Info) Description 01/24/2012 10:30 AM EST Office Visit Hematology [place] [address] Hodgkin's lymphoma (Primary Dx) Social History Tobacco [...] Sign Reading Time Taken Comments Blood Pressure 110/62 01/24/2012 10:30 AM EST Pulse 74 01/24/2012 10:30 AM EST Temperature 36.8 ??C (98.2 ??F) 01/24/2012 10:[address] Respiratory Rate 16 01/24/2012 10:30 AM EST Oxygen Saturation 100% 01/24/2012 10:30 AM EST Inhaled Oxygen Concentration - - Weight 94.1 kg (207 lb 6.4 oz) 01/24/2012 10:30 AM EST Height 168.7 cm (5' 6.42) 01/24/2012 10:[address] Body Mass Index 33.06 01/24/2012 10:30 AM EST documented in this encounter Progress Notes * Olga Espinoza, RN - 02/05/2012 6:25 PM EST RESEARCH NURSE OFFICE NOTE CYCLE #4 DAY # 15 (ABVD) 01/24/2012 [id number]: Phase II Trial of Response-Adapted Therapy Based on Positron Emission Tomography (PET) for Bulky Stage I and Stage II Classical Hodgkin Lymphoma (HL) SUBJECTIVE Chasity presented to hem-onc clinic, accompanied by Nehemiah, for day 15 of cycle 4 of ABVD as per protocol. Evaluated by Bindu Glez APRN, please see her note for details. Chasity states that she feels generally well today, although her energy levels are inconsistent in general. Describes nausea after the last treatment as persistent, but not severe, for which she took compazine with good effect. Denies any vomiting. Reports that headaches have been much better with the reintroduction of mild amounts of caffeine; has used excedrin for headache once since her last treatment. Endorses heartburn, as well as mouth irritation over the past week which resolved with Perioguard rinse. Dygeusia also continues. Chasity reports that she has recently noticed her hands feel tight in the morning. Menses are described as normal, occuring approximately every 5 weeks . For anticipatory nausea, Chasity continues with plan of taking Ativan prior to chemo appointments [place] [facility] Scarfer to request private room for patient today, as well as DVD player for distraction purposes while in infusion suite. STUDY ASSESSMENTS COMPLETED CBC, Physical exam, AE assessment CHEMOTHERAPY I verified that the dose ordered is consistent with treatment plan per protocol. Dose calculation double-checked. Pt BSA- 2.10; doxorubicin ordered dose/m2 = 25 mg/m2, total doxorubicin dose ordered = 52 mg; bleomycin ordered dose/m2 = 10 units/m2, total bleomycin dose ordered = 21 units; vinblastine ordered dose/m2 = 6 mg/m2, total vinblastine dose ordered = 12 mg; dacarbazine ordered dose/m2 = 3 75 mg/m2, total dacarbazine dose ordered = 775 mg. AE/SIDE EFFECT MONITORING # AE Grade (CTCAE [...] 35 White blood cell decreased 1 01/24/12 ongoing 36 Dysgeusia 1 01/24/12 ongoing 37 Dyspepsia 2 01/24/12 ongoing Taking Zantac with good effect 38 Localized edema 1 01/24/12 ongoing Bilateral hands in AM EDUCATION PROVIDED Lab results reviewed with patient and , including that she is no longer neutropenic. Encouraged Chasity to let infusion room staff know about her problems with pre-filled saline syringes. PLAN 1. Subject agrees to continue on study [id number] per protocol. 2. Next visit (C5D1) to be scheduled for 02/06/12 to include: Labs, physical exam, and ABVD infusion per protocol. Patient verbalizes understanding of, and agreement with, plan. Advised to contact this office for any questions/concerns, as well as for any new or worsening symptoms. documented in this encounter Plan of Treatment Not on file documented as of this encounter Results * (ABNORMAL) Comprehensive metabolic panel (non-fasting) (02/06/2012 9:00 AM EST) [facility] Glucose 90 60 - 199 mg/dL [facility] Comment:Diabetes: >=200 mg/d L plus symptoms Blood Urea Nitrogen 11 8 - 18 mg/dL [facility] Creatinine 0.68(L) 0.70 - 1.20 mg/dL [facility] Comment: Please note that the pediatric reference intervals supplied above were not validated at [facility]. Results from pediatric patients should be interpreted [...] - 31 mmol/L [facility] Anion Gap 6 5 - 15 mmol/L [facility] Calcium [...] J Am Soc Nephrol;6:1963-72. Blood specimen (specimen) 02/06/2012 9:00 AM EST 02/06/2012 9:14 AM EST Narrative Resulting Agency Comment Spec In Lab Myron Cruz MD CHEMISTRY ORDERABL ES [facility] * (ABNORMAL) CBC (with Diff) (02/06/2012 9:00 AM EST) White Blood Cell 2.6(L) 4.0 - 10.0 x10(3)/mc L [facility] Red Blood Cell 3.59(L) 3.93 - 5.22 x10(6)/mc L [facility] Hemoglobin 10.9(L) 11.2 - 15.7 gm/dL [facility] Hematocrit 32.1(L) 34.0 - 45.0 % [facility] Mean Cell Volume 89.4 79.0 - 94.0 fL [facility] Mean Cell Hemoglobin 30.4 26.6 - 32.2 pg [facility] Mean Cell Hemoglobin Concentration 34.0 32.0 - 36.5 gm/dL [facility] Platelet 295 145 - 370 x10(3)/mc L [facility] RDW Standard Deviation 44.5 35.0 - 46.0 fL [facility] RDW coefficient of variation 13.7 10.9 - 14.4 % [facility] Mean Platelet Volume 8.9(L) 9.0 - 12.0 fL [facility] Blood specimen (specimen) 02/06/2012 9:00 AM EST 02/06/2012 9:14 AM EST Narrative Resulting Agency Comment Spec In Lab Myron Cruz MD HEMATOLOGY ORDERAB LES [facility] documented in this encounter Visit Diagnoses Diagnosis Hodgkin's lymphoma- Primary Hodgkin's disease, unspecified documented in this encounter Care Teams Livestock Broker Relationship Specialty Start Date End Date Arabella Villarreal MD [address] [place] [address] PCP - General 09/16/11 documented as of this encounter
--- OUTSIDE RECORDS SUMMARY | 2024-04-07 01:42 | XMS_ITS | Encounter Summary ---
Author Organization [facility] [place] [address] Care Team Providers Care Grounds Foreman Name Role Phone Arabella Villarreal MD Primary Care Provider Reason for Visit * Reason Comments Lymphoma Encounter Details Date Type Department Care Team (Latest Contact Info) Description 02/20/2012 7:36 AM EST - 02/20/2012 11:59 PM [facility] Hospital Encounter Hematology [place] [address] Hodgkin's lymphoma (Primary Dx) Social History Tobacco [...] daily. Reported on 03/18/2016 Indications: Cold sores fluconazole (DIFLUCAN) 150 mg tablet Take as [...] Gastroesophageal Reflux 04/02/19 23 vitamin 27 & [id number]-UM 60 mg iron-1 mg tablet Take 1 tablet by mouth daily. 04/02/2022 documented as of this encounter Progress Notes * January Duarte RN - 02/20/2012 4:52 PM ASHLEYncounter addended by: January Duarte RN on: 02/20/2012 4:52 PM
Documentation filed: Charges VN * January Duarte RN - 02/20/2012 10:35 AM EST Patient Name: Chasity Gallo Patient Age: 31 y.o. Birthdate: 1980 Admit date: 02/20/2012 Attending Physician: Shanti bingham. providers found TIME TREATMENT STARTED: 0945 TIME TREATMENT ENDED: 131 Chasity Gallo, 31 y.o. female with diagnosis of Hodgkin's Lymphoma is here for chemotherapy infusion of ABVD. PROTOCOL: [id number] CYCLE: 3 DAY: 15 S: Pt anxious, brought into private room. O: Chemotherapy orders independently verified for correct drug name, route and dosage per patient'sheight, weight and BSA by ISABEL Mathis and onsite pharmacist Pt did well with infusion, slept through most of it. Did not use prefilled normal syringes or heparin syringes. Heparin instilled by GURWINDER Jackson. Limited interaction with pt which seemed to help her cope with infusion. REACTIONS (DESCRIPTION, TIME, INTERVENTION AND EFFECTIVENESS) none A: Pt. Tolerated treatment well. Chasity Spicer Gallo confirms that all questions and issues have been addressed. P: Return to clinic as scheduled. documented in this encounter Plan [...] mg, Oral, ONCE, 1 dose, On Marleny 02/20/12 at 1015, Before bleomycin on day 1 and day 15 Maximum dose of acetaminophen is 4000 mg from all sources in 24 hours., Routine Given 02/20/2012 10:16 AM EST 650 mg bleomycin (BLEOCIN) 21 Units in sodium chloride 0.9% 57 mL chemo infusion 21 Units, Intravenous, ONCE, 1 dose, On Marleny 02/20/12 at 1000, Administer over 30 Minutes, 1 unit = 1 mg New Bag 02/20/2012 11:48 AM EST 21 Units 114 mL/hr dacarbazine (DTIC) 780 mg in dextrose 5% 328 mL chemo infusion 780 mg, Intravenous, ONCE, 1 dose, On Marleny 02/20/12 at 1000, Administer over 30 Minutes New Bag 02/20/2012 12:22 PM EST 780 mg 656 mL/hr DOXOrubicin (ADRIAMYCIN) chemo injection 52 mg 52 mg, Intravenous, ONCE, 1 dose, On Marleny 02/20/12 at 1000, Administer over 5 Minutes, Vesicant/irritant. Avoid extravasation Given 02/20/2012 11:36 AM EST 52 mg 312 mL/hr famotidine (PEPCID) injection 20 mg 20 mg, Intravenous, ONCE, 1 dose, On Marleny 02/20/12 at 1015 Given 02/20/2012 10:17 AM EST 20 mg fosaprepitant (EMEND) 150 mg in sodium chloride 0.9% 155 mL infusion 150 mg, Intravenous, ONCE, 1 dose, On Marleny 02/20/12 at 1015, Administer over 30 Minutes, 30 minutes pre-chemotherapy New Bag 02/20/2012 10:50 AM EST 150 mg 310 mL/hr heparin (porcine) injection 1,000 Units 1,000 Units, Intercatheter, ONCE, 1 dose, On Marleny 02/20/12 at 1100, To be used for port flush, Routine Given 02/20/2012 1:00 PM EST 1,000 Units hydrocortisone sodium succinate (PF) (SOLU-CORTEF) injection 100 mg 100 mg, Intravenous, ONCE, 1 dose, On Marleny 02/20/12 at 1015, Before bleomycin on day 1 and day 15 Given 02/20/2012 10:28 AM EST 100 mg LORazepam (ATIVAN) tablet 0.5-1 mg 0.5-1 mg, Oral, EVERY 4 HOURS PRN, 2 doses, Starting on Marleny 02/20/12 at 1000, Until 11/20/14 at 0137, Anxiety, Nausea, Vomiting, May give intravenously if unable to take orally., Routine Given 02/20/2012 1:03 PM EST 0.5 mg palonosetron (ALOXI) injection 0.25 mg 0.25 mg, Intravenous, ONCE, 1 dose, On Marleny 02/20/12 at 1015, Pre-chemotherapy, Routine Given 02/20/2012 10:15 AM EST 0.25 mg vinBLAStine (VELBAN) chemo injection 13 mg 13 mg, Intravenous, ONCE, 1 dose, On Marleny 02/20/12 at 1000, Administer over 5 Minutes, FOR IV USE ONLY. FATAL IF GIVEN BY OTHER ROUTES. Vesicant/irritant Avoid extravasation Given 02/20/2012 11:42 AM EST 13 mg 156 mL/hr documented in this encounter Care Teams Grounds Foreman Relationship Specialty Start Date End Date Arabella Villarreal MD [address] [place] [address] PCP - General 09/16/11 documented as of this encounter
--- OUTSIDE RECORDS SUMMARY | 2024-04-07 01:42 | XMS_ITS | Encounter Summary ---
Author Organization [facility] [place] [address] Care Team Providers Care Bulb Weeder Name Role Phone Arabella Villarreal MD Primary Care Provider [phone] Encounter Details Date Type Department Care Team (Latest Contact Info) Description 01/09/2012 9:47 AM EST - 01/09/2012 11:59 PM [facility] Hospital Encounter Hematology [place] [id number] CLINIC, Alanis Fuentes MD Lansigan, Frederick, MD [facility] [place] [address] Hodgkin's lymphoma Discharge Disposition: Home Social History [...] dgkin's disease Apply topically. Apply liberally to [facility] site 30-60 minutes prior to [...] or Compazine. 10 patch 12 10/22/2011 07/24/2012 ondansetron (ZOFRAN) 4 mg tabletIndications:H odgkin's lymphoma Take 2 tablets by mouth every 8 hours as needed for Nausea. 20 tablet 0 10/16/2011 01/24/2012 acetaminophen (TYLENOL) 500 mg tablet Take 1,000 mg by mouth every 6 hours as needed. 012 ferrous gluconate 325 mg (37.5 mg iron) tablet Take 325 mg by mouth daily (with breakfast). 02/20/20 12 ranitidine (ZANTAC) 150 mg tabletIndications:g astroesophageal reflux disease Take 150 mg by mouth daily as needed. Indications: Gastroesophageal Reflux 04/02/19 23 vitamin 27 & [id number] 60 mg iron-1 mg tablet Take 1 tablet by mouth daily. 04/02/2022 documented as of this encounter Progress Notes * Karen Posey RN - 01/09/2012 10:06 AM EST Port Accessed, labs drawn documented in this encounter Plan of Treatment Not on file documented as of this encounter Procedures Procedure Name Priority Date/Time Associated Diagnosis Comments DIFFERENTIAL, AUTOMATED STAT 01/09/2012 10:05 AM EST CBC (WITH DIFF) STAT 01/09/2012 10:05 AM EST Hodgkin's lymphoma COMPREHENSIVE METABOLIC PANEL STAT 01/09/2012 10:05 AM EST Hodgkin's lymphoma documented in this encounter Results * (ABNORMAL) DIFFERENTIAL, AUTOMATED (01/09/2012 10:05 AM EST) Neutrophil % 33.2(L) 34.0 - 71.0 % CERNER MILLENNIUM Neutrophil Absolute 0.57(L) 1.50 - 6.30 x10(3)/mc L CERNER MILLENNIUM Lymph % 36.0 19.0 - 53.0 % CERNER MILLENNIUM Lymphocytes Abs 0.6(L) 1.0 - 3.6 x10(3)/mc L CERNER MILLENNIUM Monocyte % 20.3(H) 4.0 - 13.0 % CERNER MILLENNIUM Monocyte Abs 0.4 0.2 - 1.0 x10(3)/mc L CERNER MILLENNIUM Eos % 7.0 0.0 - 7.0 % CERNER MILLENNIUM Eosinophils Abs 0.1 0.0 - 0.5 x10(3)/mc L CERNER MILLENNIUM Basophil % 3.5(H) 0.0 - 2.0 % CERNER MILLENNIUM Baso [...] x10(3)/mc L CERNER MILLENNIUM Blood specimen (specimen) 01/09/2012 10:05 AM EST 01/09/2012 10:23 AM EST Myron Cruz MD HEMATOLOGY ORDERAB LES [facility] * (ABNORMAL) Comprehensive metabolic panel (non-fasting) (01/09/2012 10:05 AM EST) Glucose 89 60 - 199 mg/dL CERNER MILLENNIUM Comment:Diabetes: >=200 mg/d L plus symptoms Blood Urea Nitrogen 13 8 - 18 mg/dL CERNER MILLENNIUM Creatinine 0.66(L) 0.70 - 1.20 mg/dL CERNER MILLENNIUM Comment: Please note that the pediatric reference intervals supplied above were not validated at [facility] [place]. Results from pediatric patients [...] - 31 mmol/L CERNER MILLENNIUM Anion Gap 9 5 - 15 mmol/L CERNER MILLENNIUM Calcium 9.2 8.5 - 10.5 mg/dL CERNER MILLENNIUM Protein, Total 6.8 6.4 - 8.3 gm/dL CERNER MILLENNIUM Albumin 4.6 3.2 - 5.2 gm/dL CERNER MILLENNIUM Aspartate Aminotransferase 13 0 - 30 unit/L CERNER MILLENNIUM Alanine Aminotransferase 11 0 - 30 unit/L CERNER MILLENNIUM Alkaline Phosphatase 44 40 - 104 unit/L CERNER MILLENNIUM Bilirubin, Total 0.2 0.2 - 1.3 mg/dL CERNER MILLENNIUM Bilirubin, Direct 0.1 0.0 - 0.3 mg/dL CERNER FID3ENNIUM Est Glomerular Filtration Rate >60 >=60 CERNER [...] J Am Soc Nephrol;6:1963-72. Blood specimen (specimen) 01/09/2012 10:05 AM EST 01/09/2012 10:23 AM EST Narrative Resulting Agency Comment Spec In Lab Myron Cruz MD CHEMISTRY ORDERABL ES Performing Organization Address City/[facility]/ZIP Co de Phone Number CERNER MILLENNIUM * (ABNORMAL) CBC (with Diff) (01/09/2012 10:05 AM EST) White Blood Cell 1.7(Criti mario) 4.0 - 10.0 x10(3)/mc L CERNER MILLENNIUM Red Blood Cell 3.95 3.93 - 5.22 x10(6)/mc L CERNER MILLENNIUM Hemoglobin 11.7 11.2 - 15.7 gm/dL CERNER MILLENNIUM Hematocrit 34.7 34.0 - 45.0 % CERNER MILLENNIUM Mean Cell Volume 87.8 79.0 - 94.0 fL CERNER MILLENNIUM Mean Cell Hemoglobin 29.6 26.6 - 32.2 pg CERNER MILLENNIUM Mean Cell Hemoglobin Concentration 33.7 32.0 - 36.5 gm/dL CERNER MILLENNIUM Platelet 329 145 - 370 x10(3)/mc L CERNER MILLENNIUM RDW Standard Deviation 46.9(H) 35.0 - 46.0 fL CERNER MILLENNIUM RDW coefficient of variation 14.8(H) 10.9 - 14.4 % CERNER MILLENNIUM Mean Platelet Volume 9.2 9.0 - 12.0 fL CERNER MILLENNIUM Blood specimen (specimen) 01/09/2012 10:05 AM EST 01/09/2012 10:23 AM EST Narrative Resulting Agency Comment Spec In Lab Myron Cruz MD HEMATOLOGY ORDERAB LES [facility]MIENTO[facility] documented in this encounter Visit Diagnoses Diagnosis Hodgkin's lymphoma Hodgkin's disease, unspecified documented in this encounter Care Teams Bulb Weeder Relationship Specialty Start Date End Date Arabella Villarreal MD [address] [place] [address] PCP - General 09/16/11 documented as of this encounter
--- OUTSIDE RECORDS SUMMARY | 2024-04-07 01:42 | XMS_ITS | Encounter Summary ---
Author Organization [facility] [place] [address] Care Team Providers Care Crown Attacher Name Role Phone Arabella Villarreal MD Primary Care Provider [phone] Reason for Visit * Reason Comments Chemotherapy Encounter Details Date Type Department Care Team (Latest Contact Info) Description 02/06/2012 8:37 AM EST - 02/06/2012 11:59 PM EST Hospital Encounter [place] [address] INFUSION THERAPY, MEDS None Myron Cruz MD [facility] [address] [place] [address] Hodgkin's lymphoma (Primary Dx) Discharge Disposition: Home [...] Sign Reading Time Taken Comments Blood Pressure 129/67 02/06/2012 3:08 PM EST Pulse 87 02/06/2012 3:08 PM EST Temperature 36.9 ??C (98.4 ??F) 02/06/2012 3:08 PM ES T Respiratory Rate 18 02/06/2012 3:08 PM EST Oxygen Saturation 98% 02/06/2012 3:08 PM EST Inhaled Oxygen Concentration - - [...] dgkin's disease Apply topically. Apply liberally to [facility] 30-60 minutes prior to lab [...] Gastroesophageal Reflux 04/02/19 23 vitamin 27 & [id number]-[id number]-OL 60 mg iron-1 mg tablet Take 1 tablet by mouth daily. 04/02/2022 documented as of this encounter Progress Notes * Alisson Perdomo RN - 02/06/2012 6:34 PM EST TIME TREATMENT STARTED: 1211 TIME TREATMENT ENDED: 1514 Chasity Gallo, 31 y.o. female with diagnosis of HD is here for chemotherapy infusion of ABVD. PROTOCOL: [id number] CYCLE: 5 (but cycle 3 post PET) WEEK: DAY: 1 S: I think I'm going to throw up I can't have the pre-mixed NS, you need to draw it up O: Chasity is tearful, withdrawn, doesn't communicate with staff very much, seems quite anxious, isnauseated LAB DATA: Within acceptable limits for chemo. ANC 1410-ok to treat per IV ACCESS: port HYDRATION: ANTIEMETICS/PREMEDS: Tylenol 650 mg po aloxi 0.25 mg IV Emend 150 mg IV Hydrocortisone 100 mg IV Ativan 0.5 mg po CHEMOTHERAPY: Doxorubicin 52 gm IV Vinblastine 13 mg IV Bleomycin 21 mg IV Dacarbazine 780 mg IV Chemotherapy orders independently verified for drug name, route and dosage per patient's height, weight and BSA by Alisson Perdomo RN and RPharmacist REACTIONS (DESCRIPTION, TIME, INTERVENTION AND EFFECTIVENESS) none A: Pt. Tolerated treatment well. Chasity Spicer Gallo confirms that all questions and issues have been addressed. P: Return to clinic in 2 weeks. documented in this encounter Plan of Treatment Not on file documented as of this encounter Visit Diagnoses Diagnosis Hodgkin's lymphoma- Primary Hodgkin's disease, unspecified documented in this encounter Administered Medications Inactive Administered Medications - up to 3 most recent administrations Medication Order MAR Action Action Date Dose Rate Site acetaminophen (TYLENOL) tablet 650 mg 650 mg, Oral, ONCE, 1 dose, On Marleny 02/06/12 at 1230, Before bleomycin on day 1 and day 15 Maximum dose of acetaminophen is 4000 mg from all sources in 24 hours., Routine Given 02/06/2012 1:05 PM EST 650 mg bleomycin (BLEOCIN) 21 Units in sodium chloride 0.9% 57 mL chemo infusion 21 Units, Intravenous, ONCE, 1 dose, On Marleny 12/6/12 at 1145, Administer over 30 Minutes, 1 unit = 1 mg New Bag 02/06/2012 1:53 PM EST 21 Units 114 mL/hr dacarbazine (DTIC) 780 mg in dextrose 5% 328 mL chemo infusion 780 mg, Intravenous, ONCE, 1 dose, On Marleny 02/06/12 at 1145, Administer over 30 Minutes New Bag 02/06/2012 2:28 PM EST 780 mg 656 mL/hr DOXOrubicin (ADRIAMYCIN) chemo injection 52 mg 52 mg, Intravenous, ONCE, 1 dose, On Marleny 12 at 1145, Administer over 5 Minutes, Vesicant/irritant. Avoid extravasation Given 02/06/2012 1:37 PM EST 52 mg 312 mL/hr fosaprepitant (EMEND) 150 mg in sodium chloride 0.9% 155 mL infusion 150 mg, Intravenous, ONCE, 1 dose, On Marleny 02/06/12 at 1230, Administer over 30 Minutes, 30 minutes pre-chemotherapy New Bag 02/06/2012 12:33 PM EST 150 mg 310 mL/hr hydrocortisone sodium succinate (PF) (SOLU-CORTEF) injection 100 mg 100 mg, Intravenous, ONCE, 1 dose, On Marleny 02/06/12 at 1230, Before bleomycin on day 1 and day 15 Given 02/06/2012 1:13 PM EST 100 mg LORazepam (ATIVAN) tablet 0.5-1 mg 0.5-1 mg, Oral, EVERY 4 HOURS PRN, Starting on Marleny 02/06/12 at 1211, Until Fri02/07/12 at 0220, Anxiety, Nausea, Vomiting, May give intravenously if unable to take orally., Routine Given 02/06/2012 3:05 PM EST 0.5 mg palonosetron (ALOXI) injection 0.25 mg 0.25 mg, Intravenous, ONCE, 1 dose, On Marleny 02/06/12 at 1230, Pre-chemotherapy, Routine Given 02/06/2012 12:30 PM EST 0.25 mg vinBLAStine (VELBAN) chemo injection 13 mg 13 mg, Intravenous, ONCE, 1 dose, On Marleny 02/06/12 at 1200, Administer over 5 Minutes, FOR IV USE ONLY. FATAL IF GIVEN BY OTHER ROUTES. Vesicant/irritant Avoid extravasation Given 02/06/2012 1:45 PM EST 13 mg 156 mL/hr documented in this encounter Care Teams Crown Attacher Relationship Specialty Start Date End Date Arabella Villarreal MD [address] [facility] [place] [address] PCP - General 09/16/11 documented as of this encounter
--- OUTSIDE RECORDS SUMMARY | 2024-04-07 01:42 | XMS_ITS | Encounter Summary ---
Author Organization [facility] [place] [address] Care Team Providers Care Acid Conditioner Name Role Phone John Villarreal MD Primary Care Provider [phone] Reason for Visit * Reason Comments Follow-up Chemotherapy Encounter Details Date Type Department Care Team (Late st Contact Info) Description 01/09/2012 11:00 AM EST Follow-Up Hematology [place] [address] Myron Cruz MD [facility] DR HEMATOLOGY AND [place] [address] HD (Hodgkin's disease) (Primary Dx) Discharge Disposition: [...] Sign Reading Time Taken Comments Blood Pressure 110/72 01/09/2012 11:08 AM EST Pulse 69 01/09/2012 11:08 AM EST Temperature 36.6 ??C (97.9 ??F) 01/09/2012 11:[address] Respiratory Rate 16 01/09/2012 11:08 AM EST Oxygen Saturation 100% 01/09/2012 11:08 AM EST Inhaled Oxygen Concentration - - Weight - - Height - - Body Mass Index - - documented in this encounter Progress Notes * Cyndy Alfaro, PNEUMATIC TUBE OPERATOR - 01/09/2012 12:13 PM EST HEMATOLOGY FOLLOW UP NOTE Vidhi [...] Start Date End Date Taking? Authorizing Provider zolpidem (AMBIEN) 5 mg tablet Take by mouth. Take 1-2 tablets nightly as needed for sleep. 11/22/11 Yes Myron Cruz MD loratadine (CLARITIN) 10 mg tablet Take 10 [...] needed (Nausea). 11/13/11 Yes Cyndy Alfaro APRN prochlorperazine (COMPAZINE) 5 mg tablet Take 1 tablet by mouth every 6 hours as needed for Nausea.11/07/11 Yes Myron Cruz MD Lysine HCl 500 mg Tab Take 500 mg by mouth 2 times daily. Indications: Cold sores Yes Historical Provider, scopolamine (TRANSDERM-SCOP) 1.[address] 1 patch onto the skin every 72 hours. Use as needed for nausea not relieved by Zofran or Compazine. 10/22/11 Yes Myron Cruz MD ondansetron (ZOFRAN) 4 mg tablet Take 2 tablets by mouth every 8 hours as needed for Nausea. 10/16/11 Yes Myron Cruz MD acetaminophen (TYLENOL) 500 mg tablet Take 1,000 mg by mouth every 6 hours as needed. Yes Historical Provider, ranitidine (ZANTAC) 150 mg tablet Take 150 mg by mouth daily as needed. Indications: Gastroesophageal Reflux Yes Historical Provider, vitamin 27 & eatwvmb-scdd-DH 60 mg iron-1 mg tablet Take 1 tablet by mouth daily. Yes Historical Provider, ferrous gluconate 325 mg (37.5 mg iron) tablet Take 325 mg by mouth daily (with breakfast). Historical Provider, Allergies: Allergies Allergen Reactions ??? Other (Unclassified Drug) Nausea Only Prefilled saline syringes cause severe nausea--please draw saline flushes from vials or bags only! Interim History: Vidhi Perez is here for C4D1 ABVD on clincal trial. She had difficulties with nausea/vomiting on day of her last treatment which she relates in part to having prefilled saline syringes pushed through her mediport. She felt like things were accumulating in her posterior pharnyx which was making her gag. She spent the next day sleeping as per her usual schedule though on Friday got herself up, showered and dressed to attend a local weight loss consultant for [facility] with monies being collected in her name. She endured the event and felt rejuvenated by the energy that was generated. She describes persistent headaches though if she is able to intervene early with oral hydration or excedrin, she can prevent them from escalating. She has eliminated caffeine from her diet for the first 5 days of chemo as due to minimize dehydration though I have encouraged her to add back in a bit of caffeine as long as it is chased with equal amounts of non-caffeinated beverages. Her hair continues to thin butshe is pleased to not have lost in yet. Her scalp remain sensitive. She now feels the need to wear a hat. No fevers, chills, infections or intercurrent illnesses. No drenching sweats, unintentional weight loss or palpable adenopathy. The area of mild redness and tenderness on her left forearm, consistent with a superficial thrombophlebitis, has resolved. No new health-related concerns. Review of Systems: Hematological and Lymphatic ROS: negative Energy level: waxes and wanes, down for 2-3 days following chemotherapy but then bounces back with good energy sustained through to be next treatment. She does tire by the end of the day. Pain: No Appetite: returned to baseline, she has snacks with her today to nibble on during her treatment Fevers/chills/sweats: No Bruising/bleeding/melena: No Recent infections: No Nausea/vomiting/diarrhea/constipation: as described above SOB/GIBSON/chest pain: No Change in adenopathy or other masses: No Unexpected weight loss or gain: No, weight stable Skin rashes or petechiae: no erythema, warmth or residual tenderness left forearm. Other systems: No peripheral neuropathy A 12-pt review of systems was performed and was otherwise negative except for above. Physical Exam: BP 110/72 Pulse 69 Temp(Src) 36.6 ??C (97.9 ??F) (Oral) Resp 16 SpO2 100% Gen: well appearing, well developed, [...] for VIDHI PEREZ ( ) as of 01/09/2012 11:15 Ref. Range 01/09/2012 10:05 WBC Latest Range: 4.0-10.0 x10(3)/mcL 1.7 (CRIT) RBC Latest Range: 3.93-5.22 x10(6)/mcL 3.95 Hemoglobin Latest Range: 11.2-15.7 gm/dL 11.7 Hematocrit Latest Range: 34.0-45.0 % 34.7 MCV Latest Range: 79.0-94.0 fL 87.8 MCH Latest Range: 26.6-32.2 pg 29.6 MCHC Latest Range: 32.0-36.5 gm/dL 33.7 RDWSD Latest Range: 35.0-46.0 fL 46.9 (H) RDWCV Latest Range: 10.9-14.4 % 14.8 (H) Platelets Latest Range: 145-370 x10(3)/mcL 329 MPV Latest Range: 9.0-12.0 fL 9.2 Neutr Abs (ANC) Latest Range: 1.50-6.30 x10(3)/mcL 0.57 (L) Neutrophils % Latest Range: 34.0-71.0 % 33.2 (L) Immature Gran % Latest Range: 0.00-0.66 % 0.00 Lymphocytes % Latest Range: 19.0-53.0 % 36.0 Monocytes % Latest Range: 4.0-13.0 % 20.3 (H) Eosinophils % Latest Range: 0.0-7.0 % 7.0 Basophils % Latest Range: 0.0-2.0 % 3.5 (H) Maryann Gran Abs Latest Range: 0.00-0.05 x10(3)/mcL 0.00 Lymphocytes Abs Latest Range: 1.0-3.6 x10(3)/mcL 0.6 (L) Monocyte Abs Latest Range: 0.2-1.0 x10(3)/mcL 0.4 Eosinophils Abs Latest Range: 0.0-0.5 x10(3)/mcL 0.1 Basophils Abs Latest Range: 0.0-0.2 x10(3)/mcL 0.1 Total Bilirubin Latest Range: 0.2-1.3 mg/dL 0.2 Bili, Direct Latest Range: 0.0-0.3 mg/dL 0.1 Alk Phos Latest Range: 40-104 unit/L 44 AST Latest Range: 0-30 unit/L 13 ALT Latest Range: 0-30 unit/L 11 Sodium Latest Range: 135-145 mmol/L 140 Potassium Latest Range: 3.5-5.0 mmol/L 4.0 Chloride Latest Range: 98-107 mmol/L 105 CO2 Latest Range: 22-31 mmol/L 26 Anion Gap Latest Range: 5-15 mmol/L 9 BUN Latest Range: 8-18 mg/dL 13 Creatinine Latest Range: 0.70-1.20 mg/dL 0.66 (L) Estimated GFR Latest Range: >=60 >60 Glucose Lvl No range found 89 Calcium Latest Range: 8.5-10.5 mg/dL 9.2 Total Protein Latest Range: 6.4-8.3 gm/dL 6.8 Albumin Latest Range: 3.2-5.2 gm/dL 4.6 Radiographic: None reviewed today Assessment/Plan: Stage IIA HL, ABVD on study PET2 negative central review --Continue with treatment today as prescribed, day 1, cycle #4 ABVD on [id number]. No dose modifications necessary. --Counseled once again about neutropenic fever given ANC < 1000. --As in prior cycles, will give Aloxi and Emend today and continue with scopolamine patch changing it in 48 hours to cover through day 7 for delayed nausea. Compazine for breakthrough nausea and Ativan for stress, insomnia. --Will provide a private room and DVD player for distraction during infusion today --RTC in 2 weeks for Day 15, cycle #4. Vidhi is aware that we remain Available in the interim should questions/concerns arise. Superficial thrombophlebitis left forearm --symptoms have resolved in response to interventions [warm compresses/NSAIDs] Total time spent with patient: 30 minutes Time spent in counseling and coordination of care: 20 minutes Cyndy Alfaro, MSN, PNEUMATIC TUBE OPERATOR Nurse Practitioner Section of Hematology/Oncology [facility] Cc: JOHN VILLARREAL MD documented in this encounter Plan of Treatment Not on file documented as of this encounter Visit Diagnoses Diagnosis HD (Hodgkin's disease)- Primary Hodgkin's disease, unspecified documented in this encounter Care Teams Acid Conditioner Relationship Specialty Start Date End Date John Villarreal MD [address] [facility] [place] [address] PCP - General 09/16/11 documented as of this encounter
--- OUTSIDE RECORDS SUMMARY | 2024-04-07 01:42 | XMS_ITS | Encounter Summary ---
Author Organization Formerly [facility] [place] [address] Care Team Providers Care Deicer Repairer Pneumatic Name Role Phone Arabella Villarreal MD Primary Care Provider [phone] Encounter Details Date Type Department Care Team (Late st Contact Info) Description 01/16/2012 Telephone [place]ology [place] [phone] Myron Cruz MD [facility] [address] [place] [address] Social History Tobacco Use Types Packs/Day Years [...] Telephone Encounter - Olga Espinoza RN - 01/16/2012 6:51 PM EST RESEARCH NURSE TELEPHONE NOTE [id number]: Phase II Trial of Response-Adapted Therapy Based on Positron Emission Tomography (PET) for 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 [facility] case # is [id number]. Script generated, signed by Dr. Cruz. Forwarded task to Irlanda Brown RN (triage) for completion. documented in this encounter Plan of Treatment Not on file documented as of this encounter Visit Diagnoses Not on filedocumented in this encounter Care Teams Deicer Repairer Pneumatic Relationship Specialty Start Date End Date Arabella Villarreal MD [address] [place] [address] [address] [facility] [place] [address] PCP - General 09/16/11 documented as of this encounter
--- OUTSIDE RECORDS SUMMARY | 2024-04-07 01:42 | XMS_ITS | Encounter Summary ---
Author Organization [facility] Address [facility] [place] [address] Care Team Providers Care Cook Station Name Role Phone Arabella Villarreal MD Primary Care Provider [phone] Encounter Details Date Type Department Care Team (Latest Contact Info) Description 02/20/2012 7:35 AM EST - 02/20/2012 11:59 PM [facility] Hospital [place] [phone] CLINIC, Myron Denney MD [facility] [place] [address] Hodgkin's lymphoma Discharge Disposition: Home Social History [...] dgkin's disease Apply topically. Apply liberally to [facility] site 30-60 minutes prior to lab appointment, [...] Gastroesophageal Reflux 04/02/19 23 vitamin 27 & [id number] 60 mg iron-1 mg tablet Take 1 tablet by mouth daily. 04/02/2022 documented as of this encounter Progress Notes * Natacha Buchanan, ISABEL - 02/20/2012 7:50 AM EST Port accessed and labs drawn. documented in this encounter Plan of Treatment Not on file documented as of this encounter Procedures Procedure Name Priority Date/Time Associated Diagnosis Comments SCAN, PERIPHERAL BLOOD STAT 02/20/2012 7:45 AM EST DIFFERENTIAL, AUTOMATED STAT 02/20/2012 7:45 AM EST CBC (WITH DIFF) STAT 02/20/2012 7:45 AM EST Hodgkin's lymphoma documented in this encounter Results * (ABNORMAL) Differential, Automated (02/20/2012 7:45 AM EST) Neutrophil % 18.6(L) 34.0 - 71.0 % CERNER MILLENNIUM Neutrophil Absolute 0.21(Crit ical) 1.50 - 6.30 x10(3)/mc L CERNER MILLENNIUM Comment: This result has been called to LEELEE MILLS by JOVANNY HAUSER on 02.20.12 at 08:33, and has been read back (). Lymph % 43.4 19.0 - 53.0 % CERNER MILLENNIUM Lymphocytes Abs 0.5(L) 1.0 - 3.6 x10(3)/mc L CERNER MILLENNIUM Monocyte % 29.2(H) 4.0 - 13.0 % CERNER MILLENNIUM Monocyte Abs 0.3 0.2 - 1.0 x10(3)/mc L CERNER MILLENNIUM Eos % 5.3 0.0 - 7.0 % CERNER MILLENNIUM Eosinophils [...] x10(3)/mc L CERNER MILLENNIUM Blood specimen (specimen) 02/20/2012 7:45 AM EST 02/20/2012 7:56 AM EST Myron Cruz MD HEMATOLOGY ORDERAB LES MAGDALENA LEHMANENNIUM * Scan, Peripheral Blood (02/20/2012 7:45 AM EST) Plat estimate Normal CERNER MILLENNIUM RBC Morphology Abnormal CERNE R MILLENNIUM Ovalocytes 1-5 /HPF CERNER MILLENNIUM Blood specimen (specimen) 02/20/2012 7:45 AM EST 02/20/2012 7:56 AM EST Narrative Resulting Agency Comment Spec In Lab Myron Cruz MD HEMATOLOGY ORDERAB LES Performing Organization Address City/[facility]/ZIP Co de Phone Number CERAZEB LEHMANENNIUM * (ABNORMAL) CBC (with Diff) (02/20/2012 7:45 [...] MD HEMATOLOGY ORDERAB LES Performing Organization Address City/State/[facility] Co de Phone Number [facility] documented in this encounter Visit Diagnoses Diagnosis Hodgkin's lymphoma Hodgkin's disease, unspecified documented in this encounter Care Teams Cook Station Relationship Specialty Start Date End Date Arabella Villarreal MD [address] [place] [address] [address] [facility] [address] [place] [address] PCP - General 09/16/11 documented as of this encounter
--- OUTSIDE RECORDS SUMMARY | 2024-04-07 01:42 | XMS_ITS | Encounter Summary ---
Author Organization [facility] Address [facility] [place] [address] Care Team Providers Care Manager Telemetry Name Role Phone Arabella Villarreal MD Primary Care Provider [phone] Encounter Details Date Type Department Care Team (Latest Contact Info) Description 02/06/2012 8:30 AM EST - 02/06/2012 8:36 AM [facility] Encounter Hematology [place] [address] Hodgkin's lymphoma Social History Tobacco Use Types [...] dgkin's disease Apply topically. Apply liberally to [facility] site 30-60 minutes prior to lab [...] Gastroesophageal Reflux 04/02/19 23 vitamin 27 & [id number] 60 mg iron-1 mg tablet Take 1 tablet by mouth daily. 04/02/2022 documented as of this encounter Progress Notes * Glendy Fletcher RN - 02/06/2012 8:59 AM EST Patient Name: Chasity Gallo Patient Age: 31 y.o. Birthdate: 1980 Admit date: 02/06/2012 Attending Physician: Shanti bingham. providers found [facility] accessed for labs. documented in this encounter Plan of Treatment Not on file documented as of this encounter Procedures Procedure Name Priority Date/Time Associated Diagnosis Comments DIFFERENTIAL, AUTOMATED STAT 02/06/2012 9:00 AM EST CBC (WITH DIFF) STAT 02/06/2012 9:00 AM EST Hodgkin's lymphoma COMPREHENSIVE METABOLIC PANEL STAT 02/06/2012 9:00 AM EST Hodgkin's lymphoma documented in this encounter Results * (ABNORMAL) Differential, Automated (02/06/2012 9:00 AM EST) Neutrophil % 55.4 34.0 - 71.0 % CERNER MILLENNIUM Neutrophil Absolute 1.41(L) 1.50 - 6.30 x10(3)/mc L CERNER MILLENNIUM Lymph % 23.1 19.0 - 53.0 % CERNER MILLENNIUM Lymphocytes Abs 0.6(L) 1.0 - 3.6 x10(3)/mc L CERNER MILLENNIUM Monocyte % 15.3(H) 4.0 - 13.0 % CERNER MILLENNIUM Monocyte Abs 0.4 0.2 - 1.0 x10(3)/mc L CERNER MILLENNIUM Eos % 3.5 0.0 - 7.0 % CERNER MILLENNIUM Eosinophils Abs 0.1 0.0 - 0.5 x10(3)/mc L CERNER MILLENNIUM Basophil % 2.7(H) 0.0 - 2.0 % CERNER MILLENNIUM Baso [...] x10(3)/mc L CERNER MILLENNIUM Blood specimen (specimen) 02/06/2012 9:00 AM EST 02/06/2012 9:14 AM EST Myron Cruz MD HEMATOLOGY ORDERAB LES CERNER MILLENNIUM * (ABNORMAL) Comprehensive metabolic panel (non-fasting) (02/06/2012 9:00 AM EST) [facility] Signature Glucose 90 60 - 199 mg/dL CERNER MILLENNIUM Comment:Diabetes: >=200 mg/d L plus symptoms Blood Urea Nitrogen 11 8 - 18 mg/dL CERNER MILLENNIUM Creatinine 0.68(L) 0.70 - 1.20 mg/dL CERNER MILLENNIUM Comment: [...] NA, Trey AK, Emeterio TS, Jian AD, Tashake NASREEN. Relative performance of the MDRD and CKD-EPI equations for estimating glomerular filtration rate among patients with varied clinical presentations. Clin J Am Soc Nephrol;6:1963-72. Blood specimen (specimen) 02/06/2012 9:00 AM EST 02/06/2012 9:14 AM EST Narrative Resulting Agency Comment Spec In Lab Myron Cruz MD CHEMISTRY ORDERABL ES MAGDALENA RAUL * (ABNORMAL) CBC (with Diff) (02/06/2012 9:00 [...] Platelet 295 145 - 370 x10(3)/mc L CERNER MILLENNIUM RDW Standard Deviation 44.5 35.0 - 46.0 fL CERNER MILLENNIUM RDW coefficient of variation 13.7 10.9 - 14.4 % CERNER MILLENNIUM Mean Platelet Volume 8.9(L) 9.0 - 12.0 fL CERNER MILLENNIUM Blood specimen (specimen) 02/06/2012 9:00 AM EST 02/06/2012 9:14 AM EST Narrative Resulting Agency Comment Spec In Lab Myron Cruz MD HEMATOLOGY ORDERAB LES MAGDALENA CARTER documented in this encounter Visit Diagnoses Diagnosis Hodgkin's lymphoma Hodgkin's disease, unspecified documented in this encounter Care Teams Manager Telemetry Relationship Specialty Start Date End Date Arabella Villarreal MD [address] [facility] [place] [address] PCP - General 09/16/11 documented as of this encounter
--- OUTSIDE RECORDS SUMMARY | 2024-04-07 01:42 | XMS_ITS | Encounter Summary ---
Author Organization [facility] [place] [address] Care Team Providers Care Physical Education Aide Name Role Phone Arabella Villarreal MD Primary Care Provider [phone] Encounter Details Date Type Department Care Team (Late st Contact Info) Description 01/16/2012 Orders Only Hematology [place] [address] Myron Cruz MD [facility] [address] [place] [address] Hodgkin's lymphoma (Primary Dx) Social History Tobacco [...] unspecified documented in this encounter Care Teams Physical Education Aide Relationship Specialty Start Date End Date Arabella Villarreal MD [address] [place] [address] PCP - General 09/16/11 documented as of this encounter
--- OUTSIDE RECORDS SUMMARY | 2024-04-07 01:42 | XMS_ITS | Encounter Summary ---
Author Organization [facility] [place] [address] Care Team Providers Care Nailing Machine Operator Name Role Phone Arabella Villarreal MD Primary Care Provider Encounter Details Date Type Department Care Team (Late st Contact Info) Description 01/09/2012 External Results [place]ematology [place] [address] Myron Cruz MD [facility] [address] [place] [address] Social History Tobacco Use Types Packs/Day Years [...] on filedocumented in this encounter Care Teams Nailing Machine Operator Relationship Specialty Start Date End Date Arabella Villarreal MD [address] [place], [place] [id number] PCP - General 09/16/11 documented as of this encounter
--- OUTSIDE RECORDS SUMMARY | 2024-04-07 01:42 | XMS_ITS | Encounter Summary ---
Author Organization [place] [address] Care Team Providers Care Project Reservoir Engineer Name Role Phone Arabella Villarreal MD Primary Care Provider [phone] Reason for Visit * Reason Comments Chemotherapy Encounter Details Date Type Department Care Team (Latest Contact Info) Description 01/09/2012 9:49 AM EST - 01/09/2012 11:59 PM [facility] Hospital Encounter Hematology [place] [address] Hodgkin's lymphoma Social History Tobacco Use Types [...] dgkin's disease Apply topically. Apply liberally to [facility] site 30-60 minutes prior to lab [...] Gastroesophageal Reflux 04/02/19 23 vitamin 27 & [id number] 60 mg iron-1 mg tablet Take 1 tablet by mouth daily. 04/02/2022 documented as of this encounter Progress Notes * Elizabeth Steiner RN - 01/09/2012 4:51 PM EST Patient Name: Chasity Gallo Patient Age: 31 y.o. Birthdate: 1980 Admit date: 01/09/2012 Attending Physician: Shanti att. providers found TIME TREATMENT STARTED: 1250 TIME TREATMENT ENDED: 1610 Chasity Spicer Gallo, 31 y.o. female with diagnosis of hodgkins disease is here for chemotherapy infusion of ABVD. PROTOCOL: [id number] CYCLE: 4 WEEK: DAY: 1 S: Pt. offers no complaints at this time. O: Chemotherapy orders independently verified for correct drug name, route and dosage per patient'sheight, weight and BSA by moe Steiner RN and onsite pharmacist REACTIONS (DESCRIPTION, TIME, INTERVENTION AND EFFECTIVENESS) none A: Pt. Tolerated treatment well. Chasity Spicer Sabino confirms that all questions and issues have [...] mg, Oral, ONCE, 1 dose, On Marleny 01/09/12 at 1215, Before bleomycin on day 1 and day 15 Maximum dose of acetaminophen is 4000 mg from all sources in 24 hours., Routine Given 01/09/2012 12:15 PM EST 650 mg bleomycin (BLEOCIN) 21 Units in sodium chloride 0.9% 57 mL chemo infusion 21 Units, Intravenous, ONCE, 1 dose, On Marleny 01/09/12 at 1130, Administer over 30 Minutes, 1 unit = 1 mg New Bag 01/09/2012 2:35 PM EST 21 Units 114 mL/hr dacarbazine (DTIC) 775 mg in dextrose 5% 327.5 mL chemo infusion 775 mg, Intravenous, ONCE, 1 dose, On Marleny 01/09/12 at 1145, Administer over 30 Minutes New Bag 01/09/2012 3:34 PM EST 775 mg 655 mL/hr DOXOrubicin (ADRIAMYCIN) chemo injection 52 mg 52 mg, Intravenous, ONCE, 1 dose, On Marleny 12 at 1130, Administer over 5 Minutes, Vesicant/irritant. Avoid extravasation Given 01/09/2012 2:15 PM EST 52 mg 312 mL/hr fosaprepitant (EMEND) 150 mg in sodium chloride 0.9% 155 mL infusion 150 mg, Intravenous, ONCE, 1 dose, On Marleny 01/09/12 at 1215, Administer over 30 Minutes, 30 minutes pre-chemotherapy New Bag 01/09/2012 12:15 PM EST 150 mg 310 mL/hr hydrocortisone sodium succinate (PF) (SOLU-CORTEF) injection 100 mg 100 mg, Intravenous, ONCE, 1 dose, On Marleny 01/09/12 at 1215, Before bleomycin on day 1 and day 15 Given 01/09/2012 12:50 PM EST 100 mg LORazepam (ATIVAN) tablet 0.5-1 mg 0.5-1 mg, Oral, EVERY 4 HOURS PRN, Starting on Marleny 01/09/12 at 1154, Until Fri02/19/12 at 0817, Anxiety, Nausea, Vomiting, May give intravenously if unable to take orally., Routine Given 01/09/2012 4:15 PM EST 0.5 mg palonosetron (ALOXI) injection 0.25 mg 0.25 mg, Intravenous, ONCE, 1 dose, On Marleny 01/09/12 at 1215, Pre-chemotherapy, Routine Given 01/09/2012 12:45 PM EST 0.25 mg prochlorperazine (COMPAZINE) tablet 5-10 mg 5-10 mg, Oral, EVERY 6 HOURS PRN, Starting on Marleny 01/09/12 at 1154, Until Fri01/10/12 at 1153, Nausea, Vomiting, Maximum dose: 50 mg / 24 hrs, Routine Given 01/09/2012 12:15 PM EST 5 mg vinBLAStine (VELBAN) chemo injection 12 mg 12 mg, Intravenous, ONCE, 1 dose, On Marleny 01/09/12 at 1145, Administer over 1 Minutes, FOR IV USE ONLY. FATAL IF GIVEN BY OTHER ROUTES. Vesicant/irritant Avoid extravasation Given 01/09/2012 2:27 PM EST 12 mg 720 mL/hr documented in this encounter Care Teams Project Reservoir Engineer Relationship Specialty Start Date End Date Arabella Villarreal MD [address] [place] [address] PCP - General 09/16/11 documented as of this encounter
--- OUTSIDE RECORDS SUMMARY | 2024-04-07 01:42 | XMS_ITS | Encounter Summary ---
[place] [address] Care Team Providers Care Mold Cooler Name Role Phone Arabella Villarreal MD Primary Care Provider [phone] Reason for Visit * Reason Comments Lymphoma Encounter Details Date Type Department Care Team (Latest Contact Info) Description 12/26/2011 9:00 AM EDT - 12/26/2011 9:01 AM EDT Hospital Encounter [place]ology [place] [address] Hodgkin's lymphoma Social History Tobacco Use Types [...] dgkin's disease Apply topically. Apply liberally to [facility] site 30-60 minutes prior to lab appointment, [...] Gastroesophageal Reflux 04/02/19 23 vitamin 27 & [id number]-xzqj-EV 60 mg iron-1 mg tablet Take 1 tablet by mouth daily. 04/02/2022 documented as of this encounter Progress Notes * Elicia Graves RN - 12/26/2011 9:34 AM EDT Patient Name: Chasity Gallo Patient Age: 31 y.o. Birthdate: 1980 Admit date: 12/26/2011 Attending Physician: No att. providers found Patient's port accessed and blood drawn without difficulty. Flushed and capped for treatment. documented in this encounter Plan of Treatment Not on file documented as of this encounter Procedures Procedure Name Priority Date/Time Associated Diagnosis Comments DIFFERENTIAL, MANUAL STAT 12/26/2011 9:25 AM EDT CBC (WITH DIFF) STAT 12/26/2011 9:25 AM EDT Hodgkin's lymphoma documented in this encounter Results * (ABNORMAL) DIFFERENTIAL, MANUAL (12/26/2011 9:25 AM EDT) Neutrophil % Manual 45 34 - 71 % CERNER MILLENNIUM Lymphocyte Manual 35 19 - 53 % CERNER MILLENNIUM Monocyte Manual 10 4 - 13 % CERN ER MILLENNIUM Eosinophil Manual 4 0 - 7 % CERNER MILLENNIUM Basophil Manual 6(H) 0 - 2 % CERN ER MILLENNIUM Neutrophil Absolute (ANC) - Manual 0.7(L) 1.5 - 6.3 x10(3)/mc L CERNER MILLENNIUM Neutrophil Absolute (ANC) - Automated 0.71(L) 1.50 - 6.30 x10(3)/mc L CERNER MILLENNIUM Lymph Absolute Manual 0.6(L) 1.0 - 3.6 x10(3)/mc L CERNER MILLENNIUM Monocyte Absolute Manual 0.2 0.2 - 1.0 x10(3)/mc L CERNER MILLENNIUM Eos Absolute Manual 0.1 0.0 - 0.5 x10(3)/mc L CERNER MILLENNIUM Baso Absolute Manual 0.1 0.0 - 0.2 x10(3)/mc L CERNER MILLENNIUM Total Cells Ct 100 CERNE R MILLENNIUM Plat estimate Normal CERNER MILLENNIUM RBC Morphology Normal CERNE R MILLENNIUM Plat, Giant Less than 1 /HPF CERNER MILLENNIUM Blood specimen (specimen) 12/26/2011 9:25 AM EDT 12/26/2011 9:40 AM EDT Narrative Resulting Agency Comment Spec In Lab Myron Cruz MD HEMATOLOGY ORDERAB LES CERNER MILLENNIUM * (ABNORMAL) CBC (with Diff) (12/26/2011 9:25 AM EDT) White Blood Cell 1.6(Criti mario) 4.0 - 10.0 x10(3)/mc L CERNER MILLENNIUM Red Blood Cell 3.76(L) 3.93 - 5.22 x10(6)/mc L CERNER MILLENNIUM Hemoglobin 11.0(L) 11.2 - 15.7 gm/dL CERNER MILLENNIUM Hematocrit 32.8(L) 34.0 - 45.0 % CERNER MILLENNIUM Mean Cell Volume 87.2 79.0 - 94.0 fL CERNER MILLENNIUM Mean Cell Hemoglobin 29.3 26.6 - 32.2 pg CERNER MILLENNIUM Mean Cell Hemoglobin Concentration 33.5 32.0 - 36.5 gm/dL CERNER MILLENNIUM Platelet 287 145 - 370 x10(3)/mc L CERNER MILLENNIUM RDW Standard Deviation 48.5(H) 35.0 - 46.0 fL CERNER MILLENNIUM RDW coefficient of variation 15.3(H) 10.9 - 14.4 % CERNER MILLENNIUM Mean Platelet Volume 8.8(L) 9.0 - 12.0 fL CERNER MILLENNIUM Blood specimen (specimen) 12/26/2011 9:25 AM EDT 12/26/2011 9:40 AM EDT Narrative Resulting Agency Comment Spec In Lab Myron Cruz MD HEMATOLOGY ORDERAB LES CERAZEB SARMIENTOIUM documented in this encounter Visit Diagnoses Diagnosis Hodgkin's lymphoma Hodgkin's disease, unspecified documented in this encounter Care Teams Mold Cooler Relationship Specialty Start Date End Date Arabella Villarreal MD [address] [place] [address] PCP - General 09/16/11 documented as of this encounter
--- OUTSIDE RECORDS SUMMARY | 2024-04-07 01:42 | XMS_ITS | Encounter Summary ---
Author Organization [facility] [place] [address] Care Team Providers Care Manager Intelligence Name Role Phone Arabella Villarreal MD Primary Care Provider [phone] Reason for Visit * Reason Comments Lymphoma Hodgkin's Disease Encounter Details Date Type Department Care Team (Latest Contact Info) Description 03/05/2012 8:37 AM EST - 03/05/2012 11:59 PM [facility] Hospital Encounter Hematology [place] [address] INFUSION THERAPY, MEDS None Myron Cruz MD [facility] [address] [place] [address] Hodgkin's lymphoma Discharge Disposition: Home Social History [...] Gastroesophageal Reflux 04/02/19 23 vitamin 27 & fiweneg-ukiz-XX 60 mg iron-1 mg tablet Take 1 tablet by mouth daily. 04/02/2022 documented as of this encounter Progress Notes * Elicia Graves RN - 03/05/2012 9:01 AM EST Patient Name: Chasity Gallo Patient Age: 31 y.o. Birthdate: 1980 Admit date: 03/05/2012 Attending Physician: Meds Infusion Therapy Ms. Gallo arrived to have her medi-port accessed and lab work obtained. This was performed and no problems ensued. Biopatch applied to insertion site. She will no proceed to her MD appointment. documented in this encounter Plan of Treatment Not on file documented as of this encounter Procedures Procedure Name Priority Date/Time Associated Diagnosis Comments DIFFERENTIAL, AUTOMATED STAT 03/05/2012 8:55 AM EST CBC (WITH DIFF) STAT 03/05/2012 8:55 AM EST Hodgkin's lymphoma COMPREHENSIVE METABOLIC PANEL STAT 03/05/2012 8:55 AM EST Hodgkin's lymphoma documented in this encounter Results * (ABNORMAL) Differential, Automated (03/05/2012 8:55 AM EST) Neutrophil % 41.4 34.0 - 71.0 % CERNER MILLENNIUM Neutrophil Absolute 0.60(L) 1.50 - 6.30 x10(3)/mc L CERNER MILLENNIUM Lymph % 33.8 19.0 - 53.0 % CERNER MILLENNIUM Lymphocytes Abs 0.5(L) 1.0 - 3.6 x10(3)/mc L CERNER MILLENNIUM Monocyte % 17.2(H) 4.0 - 13.0 % CERNER MILLENNIUM Monocyte Abs 0.2 0.2 - 1.0 x10(3)/mc L CERNER MILLENNIUM Eos % 4.8 0.0 - 7.0 % CERNER MILLENNIUM Eosinophils Abs 0.1 0.0 - 0.5 x10(3)/mc L CERNER MILLENNIUM Basophil % 2.8(H) 0.0 - 2.0 % CERNER MILLENNIUM Baso [...] x10(3)/mc L CERNER MILLENNIUM Blood specimen (specimen) 03/05/2012 8:55 AM EST 03/05/2012 9:06 AM EST Myron Cruz MD HEMATOLOGY ORDERAB [...] intervals supplied above were not validated at [facility]. Results from pediatric patients should be interpreted [...] MD CHEMISTRY ORDERABL ES Performing Organization Address City/[facility]/ZIP Co de Phone Number CERAZEB LEHMANENNIUM * (ABNORMAL) CBC (with Diff) (03/05/2012 8:55 [...] documented in this encounter Care Teams Manager Intelligence Relationship Specialty Start Date End Date Arabella Villarreal MD [address] [place] [address] PCP - General 09/16/11 documented as of this encounter
--- OUTSIDE RECORDS SUMMARY | 2024-04-07 01:42 | XMS_ITS | Encounter Summary ---
Author Organization [facility]ly [facility] [place] [address] Care Team Providers Care Financial Aid Counselor Name Role Phone Arabella Villarreal MD Primary Care Provider [phone] Reason for Visit * Reason Comments Chemotherapy Encounter Details Date Type Department Care Team (Latest Contact Info) Description 12/26/2011 9:03 AM EDT - 12/26/2011 11:59 PM EDT Hospital Encounter Hematology [place] [address] INFUSION THERAPY, MEDS None Myron Cruz MD [facility] [address] [place] [address] Hodgkin's lymphoma Discharge Disposition: Home Social History [...] Sign Reading Time Taken Comments Blood Pressure 122/65 12/26/2011 3:33 PM EDT Pulse 92 12/26/2011 3:33 PM EDT Temperature 36.8 ??C (98.2 ??F) 12/26/2011 3:33 PM ED T Respiratory Rate 18 12/26/2011 3:33 PM EDT Oxygen Saturation 100% 12/26/2011 3:33 PM EDT Inhaled Oxygen Concentration - - Weight - [...] dgkin's disease Apply topically. Apply liberally to [facility] 30-60 minutes prior to lab [...] Gastroesophageal Reflux 04/02/19 23 vitamin 27 & [id number]-IR 60 mg iron-1 mg tablet Take 1 tablet by mouth daily. 04/02/2022 documented as of this encounter Progress Notes * Balwinder Sousa RN - 12/27/2011 9:16 AM EDTEncounter addended by: Balwinder Sousa RN on: 12/27/2011 9:16 AM
Documentation filed: Inpatient Notes * Balwinder Sousa RN - 12/26/2011 10:59 AM EDT Patient Name: Chasity Gallo Patient Age: 31 y.o. Birthdate: 1980 Admit date: 12/26/2011 Attending Physician: Infusion Therapy,Meds TIME TREATMENT STARTED: 1130 TIME TREATMENT ENDED: 1600 Chasity Gallo, 31 y.o. female with diagnosis of HL is here for chemotherapy infusion of ABVD. PROTOCOL: C 87957 CYCLE: 3 WEEK: NA DAY: 15 S: Pt. offers no complaints at this time. O: Patient's Chemotherapy orders independently verified for correct drug name, route and dosage perpatient's height, weight and BSA by Pharmacist and Balwinder Sousa RN. REACTIONS (DESCRIPTION, TIME, INTERVENTION AND EFFECTIVENESS) Patient nauseated during treatment. Lorazepam 1 mg PO given at 1330 with minimal relief noted. Dacarbazine stopped at this time. AT 1500, patient became even more nauseous and was assessed by Olga Espinoza RN . She discussed more anti- emetic medication with Dr Cruz. Patient given 0.5 mg IVP Lorazepam with some relief noted. Dacarbazine restarted at 1508 and continued until finished. A: Pt. Tolerated treatment well. Chasity Gallo confirms that all questions and issues have been addressed. Fluid intake and handwashing discussed with patient. P: Return to clinic per routine. documented in this encounter Plan of Treatment Not on file documented as of this encounter Visit Diagnoses Diagnosis Hodgkin's lymphoma Hodgkin's disease, unspecified documented in this encounter Administered Medications Inactive Administered Medications - up to 3 most recent administrations Medication Order MAR Action Action Date Dose Rate Site acetaminophen (TYLENOL) tablet 650 mg 650 mg, Oral, ONCE, 1 dose, On Marleny 12/26/11 at 1115, Pre-bleomycin Maximum dose of acetaminophen is 4000 mg from all sources in 24 hours., Routine Given 12/26/2011 11:50 AM EDT 650 mg bleomycin (BLEOCIN) 21 Units in sodium chloride 0.9% 57 mL chemo infusion 21 Units, Intravenous, ONCE, 1 dose, On Marleny 12/26/11 at 1100, Administer over 30 Minutes, 1 unit = 1 mg New Bag 12/26/2011 1:54 PM EDT 21 Units 114 mL/hr dacarbazine (DTIC) 776 mg in dextrose 5% 327.6 mL chemo infusion 776 mg, Intravenous, ONCE, 1 dose, On Marleny 12/26/11 at 1100, Administer over 30 Minutes New Bag 12/26/2011 2:32 PM EDT 776 mg 655.2 mL/hr DOXOrubicin (ADRIAMYCIN) chemo injection 52 mg 52 mg, Intravenous, ONCE, 1 dose, On Marleny 12/26/11 at 1100, Administer over 5 Minutes, Vesicant/irritant. Avoid extravasation Given 12/26/2011 1:33 PM EDT 52 mg 312 mL/hr fosaprepitant (EMEND) 150 mg in sodium chloride 0.9% 155 mL infusion 150 mg, Intravenous, ONCE, 1 dose, On Marleny 12/26/11 at 1115, Administer over 30 Minutes, 30 minutes pre-chemotherapy New Bag 12/26/2011 12:50 PM EDT 150 mg 310 mL/hr hydrocortisone sodium succinate (PF) (SOLU-CORTEF) injection 100 mg 100 mg, Intravenous, ONCE, 1 dose, On Marleny 12/26/11 at 1115, Pre-bleomycin Given 12/26/2011 12:15 PM EDT 100 mg LORazepam (ATIVAN) injection 0.5 mg 0.5 mg, Intravenous, ONCE, 1 dose, On Marleny 12/26/11 at 1545, Routine Given 12/26/2011 3:45 PM EDT 0.5 mg LORazepam (ATIVAN) tablet 0.5-1 mg 0.5-1 mg, Oral, EVERY 4 HOURS PRN, Starting on Marleny 12/26/11 at 1053, Until Fri12/27/11 at 0219, Anxiety, Nausea, Vomiting, Routine Given 12/26/2011 1:30 PM EDT 1 mg palonosetron (ALOXI) injection 0.25 mg 0.25 mg, Intravenous, ONCE, 1 dose, On Marleny 12/26/11 at 1115, Pre-chemotherapy, Routine Given 12/26/2011 12:00 PM EDT 0.25 mg vinBLAStine (VELBAN) chemo injection 12 mg 12 mg, Intravenous, ONCE, 1 dose, On Marleny 12/26/11 at 1100, Administer over 5 Minutes, FOR IV USE ONLY. FATAL IF GIVEN BY OTHER ROUTES. Vesicant/irritant Avoid extravasation Given 12/26/2011 1:39 PM EDT 12 mg 144 mL/hr documented in this encounter Care Teams Financial Aid Counselor Relationship Specialty Start Date End Date Arabella Villarreal MD [address] [place] [address] PCP - General 09/16/11 documented as of this encounter
--- OUTSIDE RECORDS SUMMARY | 2024-04-07 01:42 | XMS_ITS | Encounter Summary ---
[place] [address] Care Team Providers Care Site Technician Name Role Phone John Villarreal MD Primary Care Provider [phone] Encounter Details Date Type Department Care Team (Late st Contact Info) Description 01/24/2012 10:30 AM EST Follow-Up [place]ematology [place] [id number] Bindu Glez, INVENTORY CONTROL SPECIALIST Hodgkin's disease, unspecified (Primary Dx) Discharge Disposition: Home Social History [...] this encounter Patient Instructions * Patient Instructions* Bindu Glez APRN - 01/24/2012 10:43 AM EST Recent Results (from the past 72 hour(s)) CBC (WITH DIFF) Component Value Range ??? WBC 3.3 (*) 4.0 - 10.0 (x10(3)/mcL) ??? RBC 3.72 (*) 3.93 - 5.22 (x10(6)/mcL) ??? Hemoglobin 11.2 11.2 - 15.7 (gm/dL) ??? Hematocrit 33.4 (*) 34.0 - 45.0 (%) ??? MCV 89.8 79.0 - 94.0 (fL) ??? MCH 30.1 26.6 - 32.2 (pg) ??? MCHC 33.5 32.0 - 36.5 (gm/dL) ??? Platelets 306 145 - 370 (x10(3)/mcL) ??? RDWSD 47.4 (*) 35.0 - 46.0 (fL) ??? RDWCV 14.5 (*) 10.9 - 14.4 (%) ??? MPV 8.9 (*) 9.0 - 12.0 (fL) DIFFERENTIAL, AUTOMATED Component Value Range ??? Neutrophils % 62.1 34.0 - 71.0 (%) ??? Neutr Abs (ANC) 2.02 1.50 - 6.30 (x10(3)/mcL) ??? Lymphocytes % 19.3 19.0 - 53.0 (%) ??? Lymphocytes Abs 0.6 (*) 1.0 - 3.6 (x10(3)/mcL) ??? Monocytes % 15.0 (*) 4.0 - 13.0 (%) ??? Monocyte Abs 0.5 0.2 - 1.0 (x10(3)/mcL) ??? Eosinophils % 2.1 0.0 - 7.0 (%) ??? Eosinophils Abs 0.1 0.0 - 0.5 (x10(3)/mcL) ??? Basophils % 1.5 0.0 - 2.0 (%) ??? Basophils Abs 0.0 0.0 - 0.2 (x10(3)/mcL) ??? Immature Gran % 0.00 0.00 - 0.66 (%) ??? Maryann Gran Abs 0.00 0.00 - 0.05 (x10(3)/mcL) documented in this encounter Progress Notes * Bindu Glez, INVENTORY CONTROL SPECIALIST - 01/24/2012 11:08 AM EST HEMATOLOGY FOLLOW UP NOTE Chasity [...] Reflux Yes Historical Provider, vitamin 27 & [id number]-FW 60 mg iron-1 mg tablet Take 1 tablet by mouth daily. Yes Historical Provider, ferrous gluconate 325 mg (37.5 mg iron) tablet Take 325 mg by mouth daily (with breakfast). Historical Provider, Allergies: Allergies Allergen Reactions ??? Other (Unclassified Drug) Nausea Only Prefilled saline syringes cause severe nausea--please draw saline flushes from vials or bags only! Interim History: Chasity Gallo is here for C4D15 ABVD on clincal trial. 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 Her energy has been up and down which she states is her normal variation. Her nausea has been persistant but not severe - using scopolamine patch, and compazine PRN which does help. No vomitting. Also taking Ativan day of infusion. No vomitting. She is eating well. She in fact has gained some weight this past cycle. Her headaches are better the re-introduction of caffeine - only needed excedrin once over the past 2 weeks. Review of Systems: Hematological and Lymphatic ROS: negative Energy level: waxes and wanes Pain: No Appetite: up and down with taste changes. Fevers/chills/sweats: No Bruising/bleeding/melena: No Recent infections: No Nausea/vomiting/diarrhea/constipation: as above SOB/GIBSON/chest pain: No Change in adenopathy or other masses: No Unexpected weight loss or gain: No, weight stable Skin rashes or petechiae: no erythema, warmth or residual tenderness left forearm. Other systems: No peripheral neuropathy A 12-pt review of systems was performed and was otherwise negative except for above. Physical Exam: Gen: well appearing, well developed, well nourished [...] hour(s)) CBC (WITH DIFF) Component Value Range ??? WBC 3.3 (*) 4.0 - 10.0 (x10(3)/mcL) ??? RBC 3.72 (*) 3.93 - 5.22 (x10(6)/mcL) ??? Hemoglobin 11.2 11.2 - 15.7 (gm/dL) ??? Hematocrit 33.4 (*) 34.0 - 45.0 (%) ??? MCV 89.8 79.0 - 94.0 (fL) ??? MCH 30.1 26.6 - 32.2 (pg) ??? MCHC 33.5 32.0 - 36.5 (gm/dL) ??? Platelets 306 145 - 370 (x10(3)/mcL) ??? RDWSD 47.4 (*) 35.0 - 46.0 (fL) ??? RDWCV 14.5 (*) 10.9 - 14.4 (%) ??? MPV 8.9 (*) 9.0 - 12.0 (fL) DIFFERENTIAL, AUTOMATED Component Value Range ??? Neutrophils % 62.1 34.0 - 71.0 (%) ??? Neutr Abs (ANC) 2.02 1.50 - 6.30 (x10(3)/mcL) ??? Lymphocytes % 19.3 19.0 - 53.0 (%) ??? Lymphocytes Abs 0.6 (*) 1.0 - 3.6 (x10(3)/mcL) ??? Monocytes % 15.0 (*) 4.0 - 13.0 (%) ??? Monocyte Abs 0.5 0.2 - 1.0 (x10(3)/mcL) ??? Eosinophils % 2.1 0.0 - 7.0 (%) ??? Eosinophils Abs 0.1 0.0 - 0.5 (x10(3)/mcL) ??? Basophils % 1.5 0.0 - 2.0 (%) ??? Basophils Abs 0.0 0.0 - 0.2 (x10(3)/mcL) ??? Immature Gran % 0.00 0.00 - 0.66 (%) ??? Maryann Gran Abs 0.00 0.00 - 0.05 (x10(3)/mcL) Radiographic: None reviewed today Assessment/Plan: Stage IIA HL, ABVD on study PET2 negative central review --Continue with treatment today as prescribed, day 15, cycle #4 ABVD on [id number]. No dose modifications necessary. --Counseled once again [...] today --RTC in 2 weeks for Day 1, cycle #5. Chasity is aware that we remain Available in the interim should questions/concerns arise. Total time spent with patient: 30 minutes Time spent in counseling and coordination of care: 20 minutes Cyndy Alfaro, MSN, INVENTORY CONTROL SPECIALIST Nurse Practitioner Section of Hematology/Oncology [facility] Cc: JOHN VILLARREAL MD Subjective: Patient ID: Chasity Gallo is a 31 y.o. female. HPI Review of Systems Objective: Physical Exam Assessment and Plan: No problem-specific visit notes found for this encounter. documented in this encounter Plan of Treatment Not on file documented as of this encounter Visit Diagnoses Diagnosis Hodgkin's disease, unspecified(201.90)- Primary Hodgkin's disease, unspecified documented in this encounter Care Teams Site Technician Relationship Specialty Start Date End Date John Villarreal MD [address] [place] [address] PCP - General 09/16/11 documented as of this encounter
--- OUTSIDE RECORDS SUMMARY | 2024-04-07 01:42 | XMS_ITS | Encounter Summary ---
Author Organization [facility] [place] [address] Care Team Providers Care Aerosol Line Operator Name Role Phone Arabella Villarreal MD Primary Care Provider Encounter Details Date Type Department Care Team (Late st Contact Info) Description 02/19/2012 External Results Hematology [place] [address] Myron Cruz MD [facility] [address] [place] [address] Social History Tobacco Use Types Packs/Day Years [...] Procedure Name Priority Date/Time Associated Diagnosis Comments CARDIAC ENZYMES ([facility]) Routine 02/19/2012 1:45 PM EST CBC (WITH DIFF) Routine 02/19/2012 1:45 PM EST BASIC METABOLIC PANEL Routine 02/19/2012 1:45 PM EST documented in this encounter Results * (ABNORMAL) Basic Metabolic Panel (non-fasting) (02/19/2012 1:45 PM EST) Pathologist [facility] Calcium 9.1([facility]) 8.7 - 10.7 Glucose 83(Externa l Lab) Blood Urea Nitrogen 12(Externa l Lab) Creatinine 0.8([facility]) Est Glomerular Filtration Rate >60([facility]) Sodium 141([facility]) 137 - 147 Potassium 3.8([facility]) 3.4 - 5.3 Chloride 105([facility]) 99 - 108 Carbon Dioxide 29(Externa l Lab) 22 - 29 Magnesium 2.1([facility]) Blood specimen (specimen) 02/19/2012 1:45 PM EST Victor Hugo Ortiz MD CHEMISTRY ORDERABLES * (ABNORMAL) Cardiac Enzymes (02/19/2012 1:45 PM EST) Pathologist [facility] Troponin-T <0.04(Exter nal Lab) Blood specimen (specimen) 02/19/2012 1:45 PM EST Victor Hugo Ortiz MD CHEMISTRY ORDERABLES * (ABNORMAL) CBC (with Diff) (02/19/2012 1:45 PM EST) Pathologist [facility] White Blood Cell 1.25(EXTER NAL/ABN) Hemoglobin 10.5(EXTER NAL/ABN) 12.0 - 16.0 Hematocrit 32.2(EXTER NAL/ABN) 36.0 - 46.0 Platelet 382 Neutrophil Absolute (ANC) - Automated 0.28(EXTER NAL/ABN) Blood specimen (specimen) 02/19/2012 1:45 PM EST Victor Hugo Ortiz MD HEMATOLOGY ORDERABLE S documented in this encounter Visit Diagnoses Not on filedocumented in this encounter Care Teams Aerosol Line Operator Relationship Specialty Start Date End Date Arabella Villarreal MD [address] [place] [address] [facility] [place] [address] PCP - General 09/16/11 documented as of this encounter
--- OUTSIDE RECORDS SUMMARY | 2024-04-07 01:42 | XMS_ITS | Encounter Summary ---
Author Organization [facility] [place] [address] Care Team Providers Care Splicer Operator Name Role Phone John Villarreal MD Primary Care Provider [phone] Reason for Visit * Reason Comments Follow-up Chemotherapy Encounter Details Date Type Department Care Team (Late st Contact Info) Description 02/20/2012 8:30 AM EST Follow-Up [place]ematology [place] [address] Myron Cruz MD [facility] [address] [place] [address] HD (Hodgkin's disease) (Primary Dx) Discharge Disposition: [...] Sign Reading Time Taken Comments Blood Pressure 114/72 02/20/2012 8:09 AM EST Pulse 83 02/20/2012 8:09 AM EST Temperature 36.6 ??C (97.9 ??F) 02/20/2012 8:09 AM ES T Respiratory Rate 16 02/20/2012 8:09 AM EST Oxygen Saturation 99% 02/20/2012 8:09 AM EST Inhaled Oxygen Concentration - - Weight 92.3 kg (203 lb 7.8 oz) 02/20/2012 8:09 A M EST Height 169 cm (5' 6.54) 02/20/2012 8:09 AM EST Body Mass Index 32.32 02/20/2012 8:09 AM EST documented in this encounter Progress Notes * Cyndy Alfaro, BYPRODUCTS EXTRACTOR - 02/24/2012 4:04 PM EST HEMATOLOGY FOLLOW UP NOTE Vidhi [...] for sleep. 11/22/11 Yes Myron Cruz MD lidocaine-prilocaine (EMLA) cream Apply topically. Apply liberally [...] needed for Nausea.11/07/11 Yes Myron Cruz MD scopolamine (TRANSDERM-SCOP) 1.[address] 1 patch onto the skin every 72 hours. Use as needed for nausea not relieved by Zofran or Compazine. 10/22/11 Yes Myron Cruz MD ranitidine (ZANTAC) 150 mg tablet Take 150 mg by mouth daily as needed. Indications: Gastroesophageal Reflux Yes Historical Provider, vitamin 27 & pghzooc-wzff-FI 60 mg iron-1 mg tablet Take 1 tablet by mouth daily. Yes Historical Provider, fluconazole (DIFLUCAN) 150 mg tablet Take as directed. 02/20/12 Cyndy Alfaro APRN loratadine (CLARITIN) 10 mg tablet Take 10 mg by mouth daily. Indications: Seasonal allergies 11/20/11 Pcp Not In System Lysine HCl 500 mg Tab Take 500 mg by mouth 2 times daily. Indications: Cold sores Historical Provider, Allergies: Allergies Allergen Reactions ??? Other (Unclassified Drug) Nausea Only Prefilled saline syringes cause severe nausea--please draw saline flushes from vials or bags only! Interim History: Vidhi Perez is here for C5D15 ABVD on clincal trial. Shanna continues to struggle with treatment related side effects including nausea, fatigue, headaches and over the past few days, chest pressure. She was evaluated in the local ED after work yesterday and was told that her symptoms were not cardiac in origin. On further questioning, she reports increased anxiety and emotion related to the recent tragic events in the elementary school in [place], [place]. 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 She says that her symptoms improved slightly with food though admits to not snacking regularly the past few days- just off her usual routine. She states that her nausea and headaches following therapy were effectively managed with her usual strategies. She is excited to think that she is nearing the end of her treatment course. No fevers, chills, infections or intercurrent illnesses. No drenching sweats, unintentional weight loss or palpable adenopathy. No new health-related concerns. Review of Systems: Hematological and Lymphatic ROS: negative Energy level: waxes and wanes Pain: No Appetite: up and down with taste changes. Fevers/chills/sweats: No Bruising/bleeding/melena: No Recent infections: No Nausea/vomiting/diarrhea/constipation: usual pattern post-transplant SOB/GIBSON/chest pain: No Change in adenopathy or other masses: No Unexpected weight loss or gain: No, weight stable Skin rashes or petechiae: no erythema, warmth or residual tenderness left forearm. Other systems: No peripheral neuropathy A 12-pt review of systems was performed and was otherwise negative except for above. Physical Exam: BP 114/72 Pulse 83 Temp(Src) 36.6 ??C (97.9 ??F) (Oral) Resp 16 Ht 169 cm (5' 6.54) Wt 92.3 kg (203 lb 7.8 oz) BMI 32.32 kg/m2 SpO2 99% Gen: well appearing, well developed, well nourished [...] for VIDHI PEREZ ( ) as of 02/26/2012 08:33 Ref. Range 02/20/2012 07:45 WBC Latest Range: 4.0-10.0 x10(3)/mcL 1.1 (CRIT) RBC Latest Range: 3.93-5.22 x10(6)/mcL 3.61 (L) Hemoglobin Latest Range: 11.2-15.7 gm/dL 11.1 (L) Hematocrit Latest Range: 34.0-45.0 % 32.5 (L) MCV Latest Range: 79.0-94.0 fL 90.0 MCH Latest Range: 26.6-32.2 pg 30.7 MCHC Latest Range: 32.0-36.5 gm/dL 34.2 RDWSD Latest Range: 35.0-46.0 fL 43.0 RDWCV Latest Range: 10.9-14.4 % 13.2 Platelets Latest Range: 145-370 x10(3)/mcL 314 MPV Latest Range: 9.0-12.0 fL 8.7 (L) Neutr Abs (ANC) Latest Range: 1.50-6.30 x10(3)/mcL 0.21 (CRIT) Neutrophils % Latest Range: 34.0-71.0 % 18.6 (L) Immature Gran % Latest Range: 0.00-0.66 % 0.00 Lymphocytes % Latest Range: 19.0-53.0 % 43.4 Monocytes % Latest Range: 4.0-13.0 % 29.2 (H) Eosinophils % Latest Range: 0.0-7.0 % 5.3 Basophils % Latest Range: 0.0-2.0 % 3.5 (H) Maryann Gran Abs Latest Range: 0.00-0.05 x10(3)/mcL 0.00 Lymphocytes Abs Latest Range: 1.0-3.6 x10(3)/mcL 0.5 (L) Monocyte Abs Latest Range: 0.2-1.0 x10(3)/mcL 0.3 Eosinophils Abs Latest Range: 0.0-0.5 x10(3)/mcL 0.1 Basophils Abs Latest Range: 0.0-0.2 x10(3)/mcL 0.0 Plat Estimate No range found Normal RBC Morphology No range found Abnormal Ovalocytes No range found 1-5 Radiographic: None reviewed today Assessment/Plan: Stage IIA HL, ABVD on study PET2 negative central review. C5D15 ABVD. --Continue with treatment today as prescribed, on [id number]. No dose modifications necessary. --As in prior cycles, will give Aloxi and Emend today and continue with scopolamine patch changing it in 48 hours to cover through day 7 for delayed nausea. Compazine for breakthrough nausea and Ativan for stress, insomnia. --Will give Pepcid 20mg IV with premedications given gastritis/GERD. Patient was instructed to resume PPI therapy until treatment completed --I reviewed protocol specific restaging with her and f/u as mandated by the protocol. RTC in 2 weeks for Day 1, cycle #6. Vidhi is aware that we remain available in the interim should questions/concerns arise. Total time spent with patient: 35 minutes Time spent in counseling and coordination of care: 25 minutes Cyndy Alfaro, MSN, BYPRODUCTS EXTRACTOR Nurse Practitioner Section of Hematology/Oncology [facility] Cc: JOHN VILLARREAL MD documented in this encounter Plan of Treatment Not on file documented as of this encounter Visit Diagnoses Diagnosis HD (Hodgkin's disease)- Primary Hodgkin's disease, unspecified documented in this encounter Care Teams Splicer Operator Relationship Specialty Start Date End Date John Villarreal MD [address] [facility] [address] [place] [address] PCP - General 09/16/11 documented as of this encounter
--- OUTSIDE RECORDS SUMMARY | 2024-04-07 01:42 | XMS_ITS | Encounter Summary ---
Author Organization Formerly [facility] [place] [address] Care Team Providers Care Wink Cutter Operator Name Role Phone Arabella Villarreal MD Primary Care Provider [phone] Reason for Visit * Reason Comments Labs Only Encounter Details Date Type Department Care Team (Latest Contact Info) Description 01/24/2012 9:36 AM EST - 01/24/2012 11:[address] [facility] Hospital Encounter Hematology [place] [address] CLINIC, Myron Denney MD [facility] [address] [place] [address] Hodgkin's lymphoma Discharge Disposition: Home Social History [...] dgkin's disease Apply topically. Apply liberally to [facility] site 30-60 minutes prior to lab [...] Gastroesophageal Reflux 04/02/19 23 vitamin 27 & [id number] 60 mg iron-1 mg tablet Take 1 tablet by mouth daily. 04/02/2022 documented as of this encounter Progress Notes * Vishal Osorio RN - 01/24/2012 9:58 AM EST Patient Name: Chasity Gallo Patient Age: 31 y.o. Birthdate: 1980 Admit date: 01/24/2012 Attending Physician: Myron Cruz MD Port accessed labs drawn. CBC completed today, patient flushed with 20 cc NS green capped and left accessed for treatment today pending lab results. Patient is allergic to prefilled saline flushes; saline drawn up to meet needs. documented in this encounter Plan of Treatment Not on file documented as of this encounter Procedures Procedure Name Priority Date/Time Associated Diagnosis Comments DIFFERENTIAL, AUTOMATED STAT 01/24/2012 10:03 AM EST CBC (WITH DIFF) STAT 01/24/2012 10:03 AM EST Hodgkin's lymphoma documented in this encounter Results * (ABNORMAL) DIFFERENTIAL, AUTOMATED (01/24/2012 10:03 AM EST) Neutrophil % 62.1 34.0 - 71.0 % CERNER MILLENNIUM Neutrophil Absolute 2.02 1.50 - 6.30 x10(3)/mc L CERNER MILLENNIUM Lymph % 19.3 19.0 - 53.0 % CERNER MILLENNIUM Lymphocytes Abs 0.6(L) 1.0 - 3.6 x10(3)/mc L CERNER MILLENNIUM Monocyte % 15.0(H) 4.0 - 13.0 % CERNER MILLENNIUM Monocyte Abs 0.5 0.2 - 1.0 x10(3)/mc L CERNER MILLENNIUM [...] x10(3)/mc L CERNER MILLENNIUM Blood specimen (specimen) 01/24/2012 10:03 AM EST 01/24/2012 10:06 AM EST Myron Cruz MD HEMATOLOGY ORDERAB LES CERNER MILLENNIUM * (ABNORMAL) CBC (with Diff) (01/24/2012 10:03 AM EST) White Blood Cell 3.3(L) 4.0 - 10.0 x10(3)/mc L CERNER MILLENNIUM Red Blood Cell 3.72(L) 3.93 - 5.22 x10(6)/mc L CERNER MILLENNIUM Hemoglobin 11.2 11.2 - 15.7 gm/dL CERNER MILLENNIUM Hematocrit 33.4(L) 34.0 - 45.0 % CERNER MILLENNIUM Mean Cell Volume 89.8 79.0 - 94.0 fL CERNER MILLENNIUM Mean Cell Hemoglobin 30.1 26.6 - 32.2 pg CERNER MILLENNIUM Mean Cell Hemoglobin Concentration 33.5 32.0 - 36.5 gm/dL CERNER MILLENNIUM Platelet 306 145 - 370 x10(3)/mc L CERNER MILLENNIUM RDW Standard Deviation 47.4(H) 35.0 - 46.0 fL CERNER MILLENNIUM RDW coefficient of variation 14.5(H) 10.9 - 14.4 % CERNER MILLENNIUM Mean Platelet Volume 8.9(L) 9.0 - 12.0 fL CERNER MILLENNIUM Blood specimen (specimen) 01/24/2012 10:03 AM EST 01/24/2012 10:06 AM EST Narrative Resulting Agency Comment Spec In Lab Myron Cruz MD HEMATOLOGY ORDERAB LES CERAZEB LEHMANENNIUM documented in this encounter Visit Diagnoses Diagnosis Hodgkin's lymphoma Hodgkin's disease, unspecified documented in this encounter Care Teams Wink Cutter Operator Relationship Specialty Start Date End Date Arabella Villarreal MD [address] [place] [address] PCP - General 09/16/11 documented as of this encounter
--- OUTSIDE RECORDS SUMMARY | 2024-04-07 01:42 | XMS_ITS | Encounter Summary ---
Author Organization [facility] [place] [address] Care Team Providers Care Oracle Application Consultant Name Role Phone John Villarreal MD Primary Care Provider [phone] Reason for Visit * Reason Comments Follow-up Encounter Details Date Type Department Care Team (Late st Contact Info) Description 02/06/2012 9:30 AM EST Follow-Up Hematology [place] [address] Myron Cruz MD [facility] [address] H[place]ATOLOGY [place] [address] Hodgkin lymphoma (Primary Dx) Discharge Disposition: Home [...] Sign Reading Time Taken Comments Blood Pressure 119/67 02/06/2012 9:45 AM EST Pulse 78 02/06/2012 9:12 AM EST Temperature 36.8 ??C (98.2 ??F) 02/06/2012 9:12 AM ES T Respiratory Rate 18 02/06/2012 9:12 AM EST Oxygen Saturation 100% 02/06/2012 9:12 AM EST Inhaled Oxygen Concentration - - Weight 93.4 kg (205 lb 14.6 oz) 02/06/2012 9:12 AM EST Height 168.5 cm (5' 6.34) 02/06/2012 9:12 AM ES T Body Mass Index 32.9 02/06/2012 9:12 AM EST documented in this encounter Progress Notes * Olga Espinoza, RN - 02/23/2012 2:31 PM EST RESEARCH NURSE OFFICE NOTE CYCLE #5 DAY # 1 (ABVD) 02/06/2012 [id number]: Phase II Trial of Response-Adapted Therapy Based on Positron Emission Tomography (PET) for Bulky Stage I and Stage II Classical Hodgkin Lymphoma (HL) SUBJECTIVE Chasity presented to hem-onc clinic, accompanied by cousin and aunt, for day 1 of cycle 5 of ABVD as per protocol. Evaluated by Dr. Cruz, please see his note for details. Chasity states that she feels generally well today with good energy level. Recently began rigorouswalks on the treadmill at home. Reports that she had no big problems with nausea since her last treatment, denies any vomiting. Denies heartburn or dysgeusia. Recently has noticed that the gingival area near her R wisdom tooth has become painful. Continues to note that her hands feel tight in the morning, right greater than left. LMP started on the evening of chemotherapy (01/24/12) and lasted 3 days with light flow observed. Denies any chest pain, shortness of breath, numbness, tingling or interval infections. For anticipatory nausea, Chasity continues with plan of taking Ativan prior to chemo appointments at [facility]. Requests private room for today and will use DVDs, music, etc., for distraction purposes while in infusion suite. STUDY ASSESSMENTS COMPLETED CBC, CMP, Physical exam, [...] dacarbazine dose ordered = 780 mg. ANC 1.41 today. Per protocol (section 9.1.1, page 35), [...] 1 01/24/12 ongoing 36 Dysgeusia 1 01/24/12 02/06/12 37 Dyspepsia 2 01/24/12 02/06/12 Taking Zantac with good effect 38 Localized edema 1 01/24/12 ongoing Bilateral hands (R>L) in AM 39 Gingival pain 1 02/06/12 Ongoing Frequent oral care and monitoring EDUCATION PROVIDED Lab results reviewed with patient, including decreased total WBC and ANC. Continued support and reassurance regarding anticipatory anxiety and nausea offered. PLAN 1. Subject agrees to continue on study [id number] per protocol. 2. Next visit (C5D15) to be scheduled for 02/21/12 to include: Labs, physical exam, and ABVD infusion per protocol. Patient verbalizes understanding of, and agreement with, plan. Advised to contact this office for any questions/concerns, as well as for any new or worsening symptoms. * Myron Cruz MD - 02/05/2012 2:21 PM EST HEMATOLOGY FOLLOW UP NOTE Chasity [...] to Visit Medication Sig Dispense Refill ??? zolpidem (AMBIEN) 5 mg tablet Take by mouth. Take 1-2 tablets nightly as needed for sleep. 30 tablet 0 ??? loratadine (CLARITIN) 10 mg tablet Take 10 mg by mouth daily. Indications: Seasonal allergies ??? lidocaine-prilocaine (EMLA) cream Apply topically. [facility] 30-60 minutes prior to [...] Gastroesophageal Reflux ? ? vitamin 27 & [id number] 60 mg iron-1 mg tablet Take 1 tablet by mouth daily. ??? ferrous gluconate 325 mg (37.5 mg iron) tablet Take 325 mg by mouth daily (with breakfast). Current Facility-Administered Medications on File Prior to Visit Medication Dose Route Frequency Provider Last Rate Last Dose ??? LORazepam (ATIVAN) injection 0.5-1 mg 0.5-1 mg Intravenous Q4H PRN Myron Cruz MD Or ??? LORazepam (ATIVAN) tablet 0.5-1 mg 0.5-1 mg Oral Q4H PRN Myron Cruz MD 0.5 mg at 01/24/12 1535 ??? LORazepam (ATIVAN) injection 0.5-1 mg 0.5-1 mg Intravenous Q4H PRN Myron Cruz MD Or ??? LORazepam (ATIVAN) tablet 0.5-1 mg 0.5-1 mg Oral Q4H PRN Myron Cruz MD 0.5 mg at 01/09/12 1615 ??? LORazepam (ATIVAN) injection 0.5-1 mg 0.5-1 mg Intravenous Q4H PRN Myron Cruz MD Or ??? LORazepam (ATIVAN) tablet 0.5-1 mg 0.5-1 mg Oral Q4H PRN Myron Cruz MD 0.5 mg at 12/12/11 1702 Allergies: Allergies Allergen Reactions ??? Other (Unclassified Drug) Nausea Only Prefilled saline syringes cause severe nausea--please draw saline flushes from vials or bags only! Interim History: Chasity Gallo is here for C5D1 ABVD on clincal trial. [place] tooth is giving her issues. Will address after ABVD finishes. Energy level is good--excercising--treadmill. May have over done it, felt light headed. 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 Headaches--improving, taking in caffeine, and it helps. Heartburn resolved. Taste changes--none. Right hand--feels swollen in the AM. Denies neuropathies. Denies SOB, BP. Denies F/C/. Had menstruation, very light for her. Left arm pain/lump is resolved. Review of Systems: Hematological and Lymphatic ROS: [...] negative except for above. Physical Exam: BP 119/67 Pulse 78 Temp(Src) 36.8 ??C (98.2 ??F) (Oral) Resp 18 Ht 168.5 cm (5' 6.34) Wt93.4 kg (205 lb 14.6 oz) BMI 32.90 kg/m2 SpO2 100% Gen: well appearing, well [...] CBC (WITH DIFF) Component Value Range WBC 2.6 (*) 4.0 - 10.0 (x10(3)/mcL) RBC 3.59 (*) 3.93 - 5.22 (x10(6)/mcL) Hemoglobin 10.9 (*) 11.2 - 15.7 (gm/dL) Hematocrit 32.1 (*) 34.0 - 45.0 (%) MCV 89.4 79.0 - 94.0 (fL) MCH 30.4 26.6 - 32.2 (pg) MCHC 34.0 32.0 - 36.5 (gm/dL) Platelets 295 145 - 370 (x10(3)/mcL) RDWSD 44.5 35.0 - 46.0 (fL) RDWCV 13.7 10.9 - 14.4 (%) MPV 8.9 (*) 9.0 - 12.0 (fL) COMPREHENSIVE METABOLIC PANEL (NON-FASTING) Component Value Range Glucose Lvl 90 60 - 199 (mg/dL) BUN 11 8 - 18 (mg/dL) Creatinine 0.68 (*) 0.70 - 1.20 (mg/dL) Sodium 137 135 - 145 (mmol/L) Potassium 4.1 3.5 - 5.0 (mmol/L) Chloride 105 98 - 107 (mmol/L) CO2 26 22 - 31 (mmol/L) Anion Gap 6 5 - 15 (mmol/L) Calcium 9.0 8.5 - 10.5 (mg/dL) Total Protein 6.6 6.4 - 8.3 (gm/dL) Albumin 4.3 3.2 - 5.2 (gm/dL) AST 13 0 - 30 (unit/L) ALT 11 0 - 30 (unit/L) Alk Phos 38 (*) 40 - 104 (unit/L) Total Bilirubin 0.3 0.2 - 1.3 (mg/dL) Bili, Direct 0.1 0.0 - 0.3 (mg/dL) Estimated GFR >60 >=60 DIFFERENTIAL, AUTOMATED Component Value Range Neutrophils % 55.4 34.0 - 71.0 (%) Neutr Abs (ANC) 1.41 (*) 1.50 - 6.30 (x10(3)/mcL) Lymphocytes % 23.1 19.0 - 53.0 (%) Lymphocytes Abs 0.6 (*) 1.0 - 3.6 (x10(3)/mcL) Monocytes % 15.3 (*) 4.0 - 13.0 (%) Monocyte Abs 0.4 0.2 - 1.0 (x10(3)/mcL) Eosinophils % 3.5 0.0 - 7.0 (%) Eosinophils Abs 0.1 0.0 - 0.5 (x10(3)/mcL) Basophils % 2.7 (*) 0.0 - 2.0 (%) Basophils Abs 0.1 0.0 - 0.2 (x10(3)/mcL) Immature Gran % 0.00 0.00 - 0.66 (%) Maryann Gran Abs 0.00 0.00 - 0.05 (x10(3)/mcL) Radiographic: None reviewed today Assessment/Plan: Stage IIA HL, ABVD on study PET2 negative central review. C5D1 ABVD. --Continue with treatment today as prescribed, on [id number]. No dose modifications necessary. --As in prior cycles, will give Aloxi and Emend today and continue with scopolamine patch changing it in 48 hours to cover through day 7 for delayed nausea. Compazine for breakthrough nausea and Ativan for stress, insomnia. --RTC in 2 weeks for Day 15, cycle #5. Chasity is aware that we remain available in the interim should questions/concerns arise. -I reviewed protocol specific restaging with her and f/u as mandated by the protocol. -she is excited about almost being done. -remains in good spirits. Total time spent with patient: 25 minutes Time spent in counseling and coordination of care: 20 minutes Myron Cruz MD [employer] Masterhurricane tracker Section of Hematology/Oncology [facility] Cc: JOHN VILLARREAL MD documented in this encounter Plan of Treatment Not on file documented as of this encounter Visit Diagnoses Diagnosis Hodgkin lymphoma- Primary Hodgkin's disease, unspecified documented in this encounter Care Teams Oracle Application Consultant Relationship Specialty Start Date End Date John Villarreal MD [address] [place] [address] PCP - General 09/16/11 documented as of this encounter
--- OUTSIDE RECORDS SUMMARY | 2024-04-07 01:43 | XMS_ITS | Encounter Summary ---
Author Organization [facility] [place] [address] Care Team Providers Care Jewel Setter Name Role Phone Arabella Villarreal MD Primary Care Provider [phone] Reason for Visit * Reason Onset Date Comments Medication Refill 11/13/2011 Encounter Details Date Type Department Care Team (Late st Contact Info) Description 11/13/2011 Refill Hematology [place] [address] Cyndy Alfaro, COMIC ARTIST [facility] DR HEMATOLOGY [place] [address] Hodgkin's lymphoma (Primary Dx) Social History Tobacco [...] unspecified documented in this encounter Care Teams Jewel Setter Relationship Specialty Start Date End Date Arabella Villarreal MD [address] [place] [address] PCP - General 09/16/11 documented as of this encounter
--- OUTSIDE RECORDS SUMMARY | 2024-04-07 01:43 | XMS_ITS | Encounter Summary ---
Author Organization Formerly [facility] [place] [address] Care Team Providers Care Global Program Director Name Role Phone John Villarreal MD Primary Care Provider [phone] Reason for Visit * Reason Comments Chemotherapy Encounter Details Date Type Department Care Team (Late st Contact Info) Description 10/31/2011 11:30 AM EDT Follow-Up [place]ology [place] [id number] Myron Cruz MD [facility] DR HEMATOLOGY [place] [address] Hodgkin lymphoma (Primary Dx) Discharge Disposition: Home [...] as of this encounter Progress Notes * Cyndy Alfaro, JUNIOR SOFTWARE DEVELOPER - 10/30/2011 1:56 PM EDT HEMATOLOGY FOLLOW UP NOTE Vidhi Perez [...] x 3.6cm #3: retroclavicular 1.4 x 1.7cm Col Date: 09/25/2011 SURGICAL PATHOLOGY ---Pathologic Diagnosis--- [...] to encounter Medication Sig Dispense Refill ??? Lysine HCl 500 mg Tab Take 500 mg by mouth 2 times daily. Indications: Cold sores ??? prochlorperazine (COMPAZINE) 5 mg tablet Take 2 tablets by mouth every 6 hours as needed for Nausea. 30 tablet 1 ??? scopolamine (TRANSDERM-SCOP) 1.[address] 1 patch onto the skin every 72 hours. Use as needed for nausea not relieved by Zofran or Compazine. 10 patch 12 ??? BACILLUS COAGULANS-INULIN ORAL Take by mouth daily. ??? ondansetron (ZOFRAN) 4 mg tablet Take 2 tablets by mouth every 8 hours as needed for Nausea. 20tablet 0 ??? LORazepam (ATIVAN) 0.5 mg tablet Take 1 tablet by mouth every 6 hours as needed (Nausea). 30 tablet 0 ??? OXYcodone (ROXICODONE) 5 mg immediate release tablet Take 1-2 tablets by mouth every 4 hours asneeded for Pain. 15 tablet 0 ??? acetaminophen (TYLENOL) 500 mg tablet Take 1,000 mg by mouth every 6 hours as needed. ??? ferrous gluconate 325 mg (37.5 mg iron) tablet Take 325 mg by mouth daily (with breakfast). ??? ranitidine (ZANTAC) 150 mg tablet Take 150 mg by mouth daily as needed. Indications: Gastroesophageal Reflux ? ? vitamin 27 & [id number] 60 mg iron-1 mg tablet Take 1 tablet by mouth daily. Interim History: Vidhi Perez is here for C1D15 ABVD on clincal trial. Since her last cycle, she has been relatively well though continues to struggle with nausea. She experienced significant headache following day 1 therapy which was thought to be related to regular dosing of Zofran for delayed nausea/vomiting.Excedrin has been effective in alleviating headache. She notes that since starting chemotherapy, she has reduced her daily intake of caffeine which may also be contributing to headache. Compazine andAtivan made her feel very fatigued. A scopolamine patch was applied yesterday. 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 No fevers, chills, infections or intercurrent illnesses. No drenching sweats, unintentional weight loss or palpable adenopathy. Review of Systems: Hematological and Lymphatic ROS: negative Energy level: good Pain: none Appetite: returned to baseline Fevers/chills/sweats: No Bruising/bleeding/melena: No Recent infections: No Nausea/vomiting/diarrhea/constipation: No SOB/GIBSON/chest pain: No Change in adenopathy or other masses: No Unexpected weight loss or gain: No Skin rashes or petechiae: No Other systems: No additional positive findings A 12-pt review of systems was performed and was otherwise negative except for above. Physical Exam: Oncology Vitals 10/31/2011 Weight 90.9 kg Height 169 cm BSA (Calculated - sq m) 2.07 BMI (Calculated) 31.9 Temp 98.1 Temp src 1 Pulse 66 Heart Rate Source NIBP Resp 16 BP 112/66 BP Location Left arm Patient Position Sitting SpO2 100 Pain Level 0 FACES Pain Rating: Rest 0 - no hurt FACES Pain Rating: Activity Karnofsky Score 100 Gen: well appearing, well developed, well nourished 31-year-old woman in no acute distress. She is accompanied to clinic by her today. HEENT: PERRL, no oral lesions, mucus membranes moist without ulcerations, hyperemia LN survey: no palpable cervical or supraclavicular adenopathy Chest: clear to ausculatation bilaterally CV: S1S2, RRR, no murmurs, rubs, gallops Abd: soft, flat, non-tender, no palpable masses or hepatosplenomegaly. NABS. Ext: no edema Neuro: grossly intact MS: no bony tenderness Laboratory: Results for VIDHI PEREZ ( ) as of 10/31/2011 11:45 Ref. Range 10/17/2011 09:26 10/31/2011 10:28 WBC Latest Range: 4.0-10.0 x10(3)/mcL 6.6 2.0 (L) RBC Latest Range: 3.93-5.22 x10(6)/mcL 3.54 (L) 4.11 Hemoglobin Latest Range: 11.2-15.7 gm/dL 9.7 (L) 11.0 (L) Hematocrit Latest Range: 34.0-45.0 % 29.9 (L) 35.1 MCV Latest Range: 79.0-94.0 fL 84.5 85.4 MCH Latest Range: 26.6-32.2 pg 27.4 26.8 MCHC Latest Range: 32.0-36.5 gm/dL 32.4 31.3 (L) RDWSD Latest Range: 35.0-46.0 fL 43.8 44.1 RDWCV Latest Range: 10.9-14.4 % 14.2 14.5 (H) Platelets Latest Range: 145-370 x10(3)/mcL 361 366 MPV Latest Range: 9.0-12.0 fL 8.8 (L) 8.7 (L) Neutr Abs (ANC) Latest Range: 1.50-6.30 x10(3)/mcL 5.19 0.50 (L) Neutrophils % Latest Range: 34.0-71.0 % 78.9 (H) 24.4 (L) Immature Gran % Latest Range: 0.00-0.66 % 0.00 0.00 Lymphocytes % Latest Range: 19.0-53.0 % 11.4 (L) 50.0 Monocytes % Latest Range: 4.0-13.0 % 6.1 16.2 (H) Eosinophils % Latest Range: 0.0-7.0 % 3.0 6.9 Basophils % Latest Range: 0.0-2.0 % 0.6 2.5 (H) Maryann Gran Abs Latest Range: 0.00-0.05 x10(3)/mcL 0.00 0.00 Lymphocytes Abs Latest Range: 1.0-3.6 x10(3)/mcL 0.8 (L) 1.0 Monocyte Abs Latest Range: 0.2-1.0 x10(3)/mcL 0.4 0.3 Eosinophils Abs Latest Range: 0.0-0.5 x10(3)/mcL 0.2 0.1 Basophils Abs Latest Range: 0.0-0.2 x10(3)/mcL 0.0 0.0 Total Bilirubin Latest Range: 0.2-1.3 mg/dL 0.2 Bili, Direct Latest Range: 0.0-0.3 mg/dL 0.1 Alk Phos Latest Range: 40-104 unit/L 55 AST Latest Range: 0-30 unit/L 9 ALT Latest Range: 0-30 unit/L 6 Sodium Latest Range: 135-145 mmol/L 141 Potassium Latest Range: 3.5-5.0 mmol/L 4.1 Chloride Latest Range: 98-107 mmol/L 107 CO2 Latest Range: 22-31 mmol/L 27 Anion Gap Latest Range: 5-15 mmol/L 7 BUN Latest Range: 8-18 mg/dL 8 Creatinine Latest Range: 0.70-1.20 mg/dL 0.67 (L) Estimated GFR Latest Range: >=60 >60 Glucose Lvl Latest Range: 60-199 mg/dL 85 Calcium Latest Range: 8.5-10.5 mg/dL 9.0 Total Protein Latest Range: 6.4-8.3 gm/dL 6.8 Albumin Latest Range: 3.2-5.2 gm/dL 3.9 Radiographic: None reviewed today Assessment/Plan (by problem) -Counts permissive for continuation of treatment per protocol. Vidhi agrees to proceed with day 15, cycle 1 ABVD on [id number] as scheduled today. -Will give Aloxi and Emend today and continue with scopolamine patch changing it in 48 hours to cover through day 7 for delayed nausea. Use Compazine for breakthrough nausea at a decrease dose of 5mgwhich may provide clinical benefit without excessive sedation. Given previous experience with headaches associated with Zofran use, I would ask Vidhi to reserve Zofran for significant refractory nausea/vomiting. Continue Ativan at bedtime for nausea/sleep as needed. 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 -RTC in 2 weeks for initiation of cycle 2. Patient verbalizes understanding of, and agreement with,plan. Advised to contact this office for any questions/concerns, as well as for any new or worsening symptoms. Total time spent with patient: 25 minutes Time spent in counseling and coordination of care: 20 minutes Cyndy Alfaro, MSN, JUNIOR SOFTWARE DEVELOPER Nurse Practitioner Section of Hematology/Oncology [facility] Cc: JOHN VILLARREAL MD documented in this encounter Plan of Treatment Not on file documented as of this encounter Visit Diagnoses Diagnosis Hodgkin lymphoma- Primary Hodgkin's disease, unspecified documented in this encounter Care Teams Global Program Director Relationship Specialty Start Date End Date John Villarreal MD [address] [place] [address] PCP - General 09/16/11 documented as of this encounter
--- OUTSIDE RECORDS SUMMARY | 2024-04-07 01:43 | XMS_ITS | Encounter Summary ---
Author Organization [facility] [place] [address] Care Team Providers Care Sorter Lumber Straightener Name Role Phone John Vasquez MD Primary Care Provider [phone] Reason for Visit * Reason Comments Follow-up Chemotherapy Encounter Details Date Type Department Care Team (Late st Contact Info) Description 11/28/2011 9:30 AM EDT Follow-Up [place]ematology [place] [address] Myron Cruz MD [facility] [address] [place] [address] Nodular sclerosis classical Hodgkin lymphoma (Primary Dx) Discharge Disposition: Home [...] Sign Reading Time Taken Comments Blood Pressure 114/67 11/28/2011 9:44 AM EDT Pulse 65 11/28/2011 9:44 AM EDT Temperature 36.7 ??C (98.1 ??F) 11/28/2011 9:44 AM ED T Respiratory Rate 16 11/28/2011 9:44 AM EDT Oxygen Saturation 100% 11/28/2011 9:44 AM EDT Inhaled Oxygen Concentration - - Weight 91.1 kg (200 lb 13.4 oz) 11/28/2011 9:44 AM EDT Height 168.5 cm (5' 6.34) 11/28/2011 9:44 AM ED T Body Mass Index 32.09 11/28/2011 9:44 AM EDT documented in this encounter Progress Notes * Myron Cruz MD - 11/27/2011 8:47 PM EDT HEMATOLOGY FOLLOW UP NOTE Chasity [...] to encounter Medication Sig Dispense Refill ??? zolpidem (AMBIEN) [...] Gastroesophageal Reflux ? ? vitamin 27 & mckhlof-jeng-EE 60 mg iron-1 mg tablet Take 1 tablet by mouth daily. Current facility-administered medications ordered prior to encounter Medication Dose Route Frequency Provider Last Rate Last Dose ??? LORazepam (ATIVAN) injection 0.5-1 mg 0.5-1 mg Intravenous Q4H PRN Myron Cruz MD ??? LORazepam (ATIVAN) tablet 0.5-1 mg 0.5-1 mg Oral Q4H PRN Myron Cruz MD ??? prochlorperazine (COMPAZINE) tablet 5-10 mg 5-10 mg Oral Q6H PRN Myron Cruz MD Interim History: Chasity Gallo is here for C2D1 ABVD on clincal trial. +Nausea, +Motion sickness--scopalamine patch, compazine. Lasted 5 days. Aloxi/Emend -->compazine/Zofran. Scopalamine patch last nancy--seemed to help. Put one on today. Ativan. Never vomiting. Tried massage therapy, of feet, sometimes... Willing to try aromatherapy. +?Skin infection--finished Keflex, developed diarrhea--resolved. Left arm, red streak has improved.Still sore. 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 Likes to work, feels like it noemy good distraction. HUYNH--takes excedrin Caffeine: 1-2x per week. Review of Systems: Hematological and Lymphatic ROS: negative Energy level: good Pain: left arm Appetite: returned to baseline Fevers/chills/sweats: No Bruising/bleeding/melena: No Recent infections: ?skin infection Nausea/vomiting/diarrhea/constipation: Diarrhea as above, resolved SOB/GIBSON/chest pain: No Change in adenopathy or other masses: No Unexpected weight loss or gain: No Skin rashes or petechiae: None present Other systems: No additional positive findings A [...] no oral lesions, mucus membranes moist without ulcerations. Some redness posterior pharynx. LN survey: no palpable cervical or supraclavicular adenopathy Chest: clear to ausculatation bilaterally; Port accessed CV: S1S2, RRR, no murmurs, rubs, gallops Abd: soft, flat, non-tender, no palpable masses or hepatosplenomegaly. . Ext: no edema Neuro: grossly intact MS: no bony tenderness Laboratory: Recent Results (from the past 24 hour(s)) CBC (WITH DIFF) Component Value Range ??? WBC 1.8 (*) 4.0 - 10.0 (x10(3)/mcL) ??? RBC 3.95 3.93 - 5.22 (x10(6)/mcL) ??? Hemoglobin 11.1 (*) 11.2 - 15.7 (gm/dL) ??? Hematocrit 33.8 (*) 34.0 - 45.0 (%) ??? MCV 85.6 79.0 - 94.0 (fL) ??? MCH 28.1 26.6 - 32.2 (pg) ??? MCHC 32.8 32.0 - 36.5 (gm/dL) ??? Platelets 295 145 - 370 (x10(3)/mcL) ??? RDWSD 46.4 (*) 35.0 - 46.0 (fL) ??? RDWCV 14.9 (*) 10.9 - 14.4 (%) ??? MPV 9.4 9.0 - 12.0 (fL) SCAN, PERIPHERAL BLOOD Component Value Range ??? Plat Estimate Normal ??? RBC Morphology Normal DIFFERENTIAL, AUTOMATED Component Value Range ??? Neutrophils % 41.7 34.0 - 71.0 (%) ??? Neutr Abs (ANC) 0.75 (*) 1.50 - 6.30 (x10(3)/mcL) ??? Lymphocytes % 40.0 19.0 - 53.0 (%) ??? Lymphocytes Abs 0.7 (*) 1.0 - 3.6 (x10(3)/mcL) ??? Monocytes % 9.4 4.0 - 13.0 (%) ??? Monocyte Abs 0.2 0.2 - 1.0 (x10(3)/mcL) ??? Eosinophils % 5.0 0.0 - 7.0 (%) ??? Eosinophils Abs 0.1 0.0 - 0.5 (x10(3)/mcL) ??? Basophils % 3.9 (*) 0.0 - 2.0 (%) ??? Basophils Abs 0.1 0.0 - 0.2 (x10(3)/mcL) ??? Immature Gran % 0.00 0.00 - 0.66 (%) ??? Maryann Gran Abs 0.00 0.00 - 0.05 (x10(3)/mcL) Radiographic: None reviewed today Assessment/Plan (by problem) -Continue C2D15 ABVD today on [id number] as scheduled today. -As in prior cycles, will give Aloxi and Emend today and continue with scopolamine patch changing it in 48 hours to cover through day 7 for delayed nausea. Use Compazine for breakthrough nausea at 10mg which may provide clinical benefit without excessive sedation. Ativan for stress, insomnia. Zofran PRN (she choose to use as last resort, due to headache). May try aromatherapy, continue massage. --Patient was counseled about neutropenic precautions. OK to take time off from work. --PET scheduled for planned for 12/05, need central review to see which chemo to proceed with next ABVD or [id number] --Patient verbalizes understanding of, and agreement with, plan. Advised to contact this office forany questions/concerns, as well as for any new or worsening symptoms. 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
--- OUTSIDE RECORDS SUMMARY | 2024-04-07 01:43 | XMS_ITS | Encounter Summary ---
[place] [address] Care Team Providers Care Operating Room Rn Name Role Phone Arabella Villarreal MD Primary Care Provider [phone] Encounter Details Date Type Department Care Team (Late st Contact Info) Description 12/12/2011 1:00 PM EDT Office Visit Hematology [place] [id number] Hodgkin's disease (Primary Dx) Social History Tobacco Use Types [...] Notes * Olga Espinoza RN - 12/25/2011 7:29 PM EDT RESEARCH NURSE OFFICE NOTE Cycle #3 Day #1 ABVD 12/12/2011 [id number]: Phase II Trial of Response-Adapted Therapy Based on Positron Emission Tomography (PET) for 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 Evaluated by Dr. Cruz, please see his note for details. STUDY ASSESSMENTS COMPLETED CBC, CMP, physical exam CHEMOTHERAPY ?? I verified that the dose ordered is consistent with treatment plan per protocol. Dose calculation double-checked. Pt. BSA - 2.07; doxorubicin ordered dose/m2 = 25 mg/m2, total doxorubicin dose ordered = 52 mg; bleomycin ordered dose/m2 = 10 units/m2, total bleomycin dose ordered = 21 units; vinblastine ordered dose/m2 = 6mg/m2, total vinblastine dose ordered = 12 mg; dacarbazine ordered dose/m2 = 375 mg/m2, total dacarbazine dose ordered = 776mg. PLAN 1. Subject agrees to continue on study [id number] per protocol. 2. Next visit (C3D15) scheduled for 12/26/11 to include: Labs, physical examination, and ABVD infusion per protocol. Patient verbalizes understanding of, and agreement with, plan. Advised to contact this office for any questions/concerns, as well as for any new or worsening symptoms. documented in this encounter Plan of Treatment Not on file documented as of this encounter Visit Diagnoses Diagnosis Hodgkin's disease- Primary Hodgkin's disease, unspecified documented in this encounter Care Teams Operating Room Rn Relationship Specialty Start Date End Date Arabella Villarreal MD [address] [place] [address] PCP - General 09/16/11 documented as of this encounter
--- OUTSIDE RECORDS SUMMARY | 2024-04-07 01:43 | XMS_ITS | Encounter Summary ---
[place] [address] Care Team Providers Care Filbert Grower Name Role Phone Arabella Villarreal MD Primary Care Provider [phone] Reason for Visit * Reason Comments Labs Only Encounter Details Date Type Department Care Team (Latest Contact Info) Description 11/28/2011 8:50 AM EDT - 11/28/2011 11:59 PM EDT Hospital Encounter Hematology [place] [address] INFUSION THERAPY, MEDS None Hodgkin's lymphoma Discharge Disposition: Home Social History [...] Gastroesophageal Reflux 04/02/19 23 vitamin 27 & rltexmi-uvdy-XQ 60 mg iron-1 mg tablet Take 1 tablet by mouth daily. 04/02/2022 documented as of this encounter Progress Notes * Neelam Colin RN - 11/28/2011 9:34 AM EDTEncounter addended by: Neelam Colin RN on: 11/28/2011 9:34 AM
Documentation filed: Inpatient Document Flowsheet * Neelam Colin RN - 11/28/2011 9:09 AM EDT Patient Name: Chasity Gallo Patient Age: 31 y.o. Birthdate: 1980 Admit date: 11/28/2011 Attending Physician: Infusion Therapy,Meds Right chest mediport accessed for blood draw, CBC drawn. documented in this encounter Plan of Treatment Not on file documented as of this encounter Visit Diagnoses Diagnosis Hodgkin's lymphoma Hodgkin's disease, unspecified documented in this encounter Care Teams Filbert Grower Relationship Specialty Start Date End Date Arabella Villarreal MD [address] [place] [address] PCP - General 09/16/11 documented as of this encounter
--- OUTSIDE RECORDS SUMMARY | 2024-04-07 01:43 | XMS_ITS | Encounter Summary ---
Author Organization [facility] [place] [address] Care Team Providers Care Sewer Line Photo Inspector Name Role Phone Arabella Villarreal MD Primary Care Provider [phone] Reason for Visit * Reason Comments Follow-up Encounter Details Date Type Department Care Team (Late st Contact Info) Description 12/10/2011 Telephone Hematology [place] [phone] Myron Cruz MD [facility] [place] [address] Follow-up Social History Tobacco Use Types Packs/Day Years [...] Telephone Encounter - Olga Espinoza RN - 12/10/2011 6:01 PM EDT RESEARCH NURSE TELEPHONE NOTE [id number]: Phase II Trial of Response-Adapted Therapy Based on Positron Emission Tomography (PET) for 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 Chasity told that, per notification received this afternoon, her central lab results confirm her restaging PET negativity, and thus she is to continue with ABVD for 4 additional cycles perprotocol. Appointment times reviewed for , 12/12/11 including labs @ 1200, MD/INTERNATIONAL ORGANIZER @ 1300, and infusion @ 1400. Chasity states that in the future, she prefers AM appointments, as her infusions tend to run approximately 3 hours in length. Advised that appointments for this week were somewhatunconventional in that Dr. Cruz is on the inpatient service and subsequently unable to see patients in the AM. Chasity verbalizes understanding. Inquires about CT results (as these were not available when she met with Dr. Cruz last week). CT results for chest, abdomen, pelvis and neck reviewed, showing decreased mediastinal lymphadenopathy. Chasity advised that a few of her cervical lymph nodes in neck were slightly enlarged, but were not active on PET scanning. Advised that lymph nodes can fluctuate in size depending on multiple processes occuring in the body (i.e. Viral/bacterial infection clearance, etc). Indicator nodes have decreased in size. Patient verbalizes understanding of, and agreement with, plan. Advised to contact this office for any questions/concerns, as well as for any new or worsening symptoms. documented in this encounter Plan of Treatment Not on file documented as of this encounter Visit Diagnoses Not on filedocumented in this encounter Care Teams Sewer Line Photo Inspector Relationship Specialty Start Date End Date Arabella Villarreal MD [address] [facility] [address] [place] [address] PCP - General 09/16/11 documented as of this encounter
--- OUTSIDE RECORDS SUMMARY | 2024-04-07 01:43 | XMS_ITS | Encounter Summary ---
[place] [address] Care Team Providers Care Technical Solution Architect Name Role Phone Arabella Villarreal MD Primary Care Provider [phone] Encounter Details Date Type Department Care Team (Latest Contact Info) Description 12/06/2011 9:17 AM EDT - 12/06/2011 12:56 PM EDT Hospital [place] [address] Hodgkin's lymphoma Social History Tobacco Use Types [...] dgkin's disease Apply topically. [facility] 30-60 minutes prior to lab appointment, [...] Gastroesophageal Reflux 04/02/19 23 vitamin 27 & [id number]-efkd-QN 60 mg iron-1 mg tablet Take 1 tablet by mouth daily. 04/02/2022 documented as of this encounter Plan of Treatment Not on file documented as of this encounter Procedures Procedure Name Priority Date/Time Associated Diagnosis Comments CT CHEST ABDOMEN PELVIS W CONTRAST (GENERIC) Routine 12/06/2011 12:12 PM EDT Hodgkin's disease, unspecified documented in this encounter Results * CT CHEST, ABDOMEN, & PELVIS WITH CONTRAST (12/06/2011 12:12 PM EDT) Anatomical Region Laterality Modality Computed Tomogra phy 12/06/2011 12:1 2 PM EDT Addenda Addendum on 12/13/2011 5:38 PM EDT Addendum Begins Based on the prior addendum to the report of October 10, 2011 a best approximated measurement in craniocaudal dimension was made on the coronal reconstructions. The overall maximal diameter of the conglomeration of mediastinal lymph nodes in the same plane has decreased from 10.1 cm on October 10, 2011 (series 601, image 45) to now 7.5 cm (series 404, image 35). Addendum Ends Addendum on 12/13/2011 5:36 PM EDT Addendum Begins Based on the prior addendum to the report of October 10, 2011 a best approximated measurement in craniocaudal dimension was made on the coronal reconstructions. The overall maximal diameter of the conglomeration of mediastinal lymph nodes in the same plane has decreased from 10.1 cm on October 10, 2011 (series 601, image 45) to now 7.5 cm (series 404, image 35). Addendum Ends Addendum on 12/13/2011 5:34 PM EDT Addendum Begins Based on the prior addendum to the report of October 10, 2011 a best approximated measurement in craniocaudad dimension was made on the coronal reconstructions. The overall maximal diameter of the conglomeration of mediastinal lymph nodes in the same plane has decreased from 10.1 cm on October 10, 2011 (series 601, image 45) to now 7.5 cm (series 404, image 35). Addendum Ends Narrative 12/06/2011 1:[address] Chest / Abdomen / Pelvis With Contrast Clinical History Restaging Hodgkin's lymphoma s/p 2 cycles ABVD Comparison October 10, 2011. ?? Technique CT of the chest, abdomen, and pelvis after 110 cc Omnipaque 350 and oral contrast. Findings Chest: No pulmonary nodule or mass. Supraclavicular lymphadenopathy is partially included on this exam; please also refer to the dedicated CT of the neck (reported separately). Persistent pathologically enlarged lymph nodes right paratracheal and in the anterior mediastinum, which have markedly decreased in size in comparison to the prior exam. No hilar or axillary lymphadenopathy. ?? Abdomen: Contrast enhancement is mildly suboptimal related to timing of the contrast bolus. 2 hypodensities in the liver are seen again, which are too small to characterize with certainty. Normal spleen, adrenal glands, kidneys, and pancreas. ??Normal caliber and contour of the abdominal aorta. ??No abdominal lymphadenopathy. ?? Pelvis: No free fluid. ??No pathologic lymph node enlargement. Pelvic organs have a normal appearance. ?? Skeleton: No aggressive osseous lesion. ?? Lesion 1: Mediastinal lymph node ?? Previous scan: Series 2, image 14, 55 x 28 mm. Presents scan: Series 2, image 16, 50 x 15 mm. Lesion 2: Mediastinal lymph node ?? Previous scan: Series 2, image 21, 60 x 29 mm. Presents scan: Series 2, image 24, 45 x 15 mm. Impression Mediastinal lymphadenopathy has markedly decreased in size in comparison to the prior exam. ??No new lymphadenopathy. Procedure Note Ginette Benitez MD - 12/13/[address] Chest / Abdomen / Pelvis With Contrast Clinical History Restaging Hodgkin's lymphoma s/p 2 cycles ABVD Comparison October 10, 2011. Technique CT of the chest, abdomen, and pelvis after 110 cc Omnipaque 350 and oral contrast. Findings Chest: No pulmonary nodule or mass. Supraclavicular lymphadenopathy is partially included on this exam; please also refer to the dedicated CT ofthe neck (reported separately). Persistent pathologically enlarged lymph nodes right paratracheal and in the anterior mediastinum, which have markedly decreased in size in comparison to the prior exam. No hilar or axillary lymphadenopathy. Abdomen: Contrast enhancement is mildly suboptimal related to timing ofthe contrast bolus. 2 hypodensities in the liver are seen again, which are too small to characterize with certainty. Normal spleen, adrenal glands,kidneys, and pancreas. Normal caliber and contour of the abdominal aorta. Noabdominal lymphadenopathy. Pelvis: No free fluid. No pathologic lymph node enlargement. Pelvicorgans have a normal appearance. Skeleton: No aggressive osseous lesion. Lesion 1: Mediastinal lymph node Previous scan: Series 2, image 14, 55 x 28 mm. Presents scan: Series 2, image 16, 50 x 15 mm. Lesion 2: Mediastinal lymph node Previous scan: Series 2, image 21, 60 x 29 mm. Presents scan: Series 2, image 24, 45 x 15 mm. Impression Mediastinal lymphadenopathy has markedly decreased in size in comparisonto the prior exam. No new lymphadenopathy. Myron Cruz MD IMG CT ORDERABLES documented in this encounter Visit Diagnoses Diagnosis Hodgkin's lymphoma Hodgkin's disease, unspecified documented in this encounter Administered Medications Inactive Administered Medications - up to 3 most recent administrations Medication Order MAR Action Action Date Dose Rate Site iohexol (OMNIPAQUE) 350 mg iodine/mL injection 17,500 mg 17,500 mg (50 mL), Oral, ONCE PRN, 1 dose, Starting on Fri12/06/11 at 1155, Until Fri12/06/11 at 1000, Per Protocol, Routine Given 12/06/2011 10:00 AM EDT 17,500 mg iohexol (OMNIPAQUE) 350 mg iodine/mL injection 38,500 mg 38,500 mg (110 mL), Intravenous, ONCE PRN, 1 dose, Starting on Fri12/06/11 at 1155, Until Fri12/06/11 at 1202, Per Protocol, Routine Given 12/06/2011 12:02 PM EDT 38,500 mg documented in this encounter Care Teams Technical Solution Architect Relationship Specialty Start Date End Date Arabella Villarreal MD [address] [facility] [address] [place] [address] PCP - General 09/16/11 documented as of this encounter
--- OUTSIDE RECORDS SUMMARY | 2024-04-07 01:43 | XMS_ITS | Encounter Summary ---
[place] [address] Care Team Providers Care Lighter Captain Name Role Phone Arabella Villarreal MD Primary Care Provider [phone] Encounter Details Date Type Department Care Team (Late st Contact Info) Description 12/06/2011 10:00 AM EDT Clinical Support [facility] [place] [phone] Social History Tobacco Use Types Packs/Day Years [...] on filedocumented in this encounter Care Teams Lighter Captain Relationship Specialty Start Date End Date Arabella Villarreal MD [address] [place], [place] [id number] PCP - General 09/16/11 documented as of this encounter
--- OUTSIDE RECORDS SUMMARY | 2024-04-07 01:43 | XMS_ITS | Encounter Summary ---
[place] [address] Care Team Providers Care Canceling And Cutting Control Clerk Name Role Phone Arabella Villarreal MD Primary Care Provider Encounter Details Date Type Department Care Team (Late st Contact Info) Description 12/06/2011 9:00 AM EDT - 12/06/2011 11:59 PM EDT Hospital Encounter [place] [address] CLINIC, Arabella Rabago MD [address] [place] [address] Hodgkin's lymphoma Discharge Disposition: Home Social History [...] Apply topically. Apply liberally to [facility] site 30-60 minutes prior to [...] Gastroesophageal Reflux 04/02/19 23 vitamin 27 & [id number] 60 mg iron-1 mg tablet Take 1 tablet by mouth daily. 04/02/2022 documented as of this encounter Miscellaneous Notes * Miscellaneous - Provider, Scanning - 12/10/2011 1:10 PM EDT documented in this encounter Plan of Treatment Not on file documented as of this encounter Procedures Procedure Name Priority Date/Time Associated Diagnosis Comments NM PET CT SKULL BASE TO MID-THIGH ([facility]) Routine 12/06/2011 9:27 AM EDT Hodgkin's lymphoma POCT GLUCOSE Routine 12/06/2011 7:25 AM EDT documented in this encounter Results * PET-CT skull base to mid thigh (12/06/2011 9:27 AM EDT) Anatomical Region Laterality Modality Other 12/06/2011 9:27 AM EDT Narrative 12/06/2011 4:53 PM EDT Examination PET/CT SKULL BASE TO MID-THIGH Technique Procedure: Following IV injection of 86-ushfcd-3-deoxyglucose (FDG) and a standard uptake period, a non-contrast CT scan followed by a PET scan were acquired from the base of the skull to mid-thighs. The non-contrast CT was used for anatomic localization and photon attenuation correction of the PET scan. Blood Glucose Level (mg/dL):81 FDG Dose:13.7 mCi (0.15 mCi/kg to maximum of 18 mCi). Pre-medication: Xanax 0.5 mg Clinical History Hodgkin's lymphoma restaging after 2 cycles ABVD Comparison 10/11/2011 Head/Neck Normal metabolic activity is seen in the visualized inferior head and neck. ?? Chest The previously seen hypermetabolic bilateral supraclavicular and bilateral mediastinal adenopathy has completely resolved metabolically, and has markedly decreased in anatomical size. Residual adenopathy remains with NO significant activity above mediastinal reference background level. A medi-port is visualized in the soft tissues of the right upper chest with the catheter tip terminating in the atriocaval junction. ?? Abdomen/Pelvis Normal metabolic activity is seen throughout the abdomen and pelvis. The previously seen hypermetabolic adnexal focus has resolved and most likely represented a functioning ovarian cyst. ?? Skeleton/Extremities Normal metabolic activity is seen in the axial and visualized appendicular skeleton. ?? Impression 1. No active lymphoma. ?? Thank you for referring this patient to the [facility] Film and interpretation reviewed by the attending Procedure Note Rodrigo Lynn MD - 12/06/2011 Examination PET/CT SKULL BASE TO MID-THIGH Technique Procedure: Following IV injection of 75-pqenfe-7-deoxyglucose (FDG) and a standard uptake period, a non-contrast CT scan followed by a PET scan were acquired from the base of the skull to mid-thighs. The non-contrast CT wasused for anatomic localization and photon attenuation correction of the PETscan. Blood Glucose Level (mg/dL):81 FDG Dose:13.7 mCi (0.15 mCi/kg to maximum of 18 mCi). Pre-medication: Xanax 0.5 mg Clinical History Hodgkin's lymphoma restaging after 2 cycles ABVD Comparison 10/11/2011 Head/Neck Normal metabolic activity is seen in the visualized inferior head andneck. Chest The previously seen hypermetabolic bilateral supraclavicular and bilateral mediastinal adenopathy has completely resolved metabolically, and hasmarkedly decreased in anatomical size. Residual adenopathy remains with NOsignificant activity above mediastinal reference background level. A medi-port is visualized in the soft tissues of the right upper chest with the cathetertip terminating in the atriocaval junction. Abdomen/Pelvis Normal metabolic activity is seen throughout the abdomen and pelvis. The previously seen hypermetabolic adnexal focus has resolved and most likely represented a functioning ovarian cyst. Skeleton/Extremities Normal metabolic activity is seen in the axial and visualized appendicular skeleton. Impression 1. No active lymphoma. Thank you for referring this patient to the [facility] Film and interpretation reviewed by the attending Myron Cruz MD IM PET ORDERABLES * POCT GLUCOSE (12/06/2011 7:25 AM EDT) Glucose, POC 81 60 - 199 mg/dL [facility] Comment: Supplemental ranges: <110 mg/dL before meals <200 mg/dL all other times of the day Blood specimen (specimen) 12/06/2011 7:25 AM EDT 12/06/2011 7:[address] Gricelda Bullard MD POINT OF CARE TEST O RDERABLES Performing Organization Address City/State/ZIP Co id Phone Number [facility] documented in this encounter Visit Diagnoses Diagnosis Hodgkin's lymphoma Hodgkin's disease, unspecified documented in this encounter Administered Medications Inactive Administered Medications - up to 3 most recent administrations Medication Order MAR Action Action Date Dose Rate Site ALPRAZolam (XANAX) tablet 0.5 mg 0.5 mg, Oral, ONCE, 1 dose, On Fri12/06/11 at 0745, Routine Given 12/06/2011 7:20 AM EDT 0.5 mg iohexol (OMNIPAQUE) 350 mg iodine/mL injection 17,500 mg 17,500 mg (50 mL), Oral, ONCE PRN, 1 dose, Starting on Fri12/06/11 at 0802, Until Fri12/06/11 at 0802, Per Protocol, Routine Given 12/06/2011 8:02 AM EDT 17,500 mg documented in this encounter Care Teams Canceling And Cutting Control Clerk Relationship Specialty Start Date End Date Arabella Villarreal MD [address] [place] [address] [address] [facility] [address] [place] [address] PCP - General 09/16/11 documented as of this encounter
--- OUTSIDE RECORDS SUMMARY | 2024-04-07 01:43 | XMS_ITS | Encounter Summary ---
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 Seen briefly for discussion with Dr. Cruz, please see his note for details. Chasity states I've been feeling oddly good recently with good energy levels. Continues to work and notes increased stress at her job. Endorses headaches several times per week. Denies any mouth sores, but does continue to report some mouth sensitivity. Dysgeusia is better, not off like before. Hair continues to thin out. STUDY ASSESSMENTS COMPLETED CBC, CMP, ESR, lab kit AE assessment CT (chest, abdomen, pelvis, neck) PET scan AE/SIDE EFFECT MONITORING # AE [...] sodium prn 20 Mucositis oral 1 11/18/11 ongoing burned feeling in mouth 21 Dizziness 1 11/18/11 ongoing Monitor closely 22 Dysgeusia 1 11/21/11 ongoing Metallic taste; helped by chewing gum 23 Insomnia 2 11/21/11 ongoing Ambien 10mg at bedtime prn 24 Ear pain 2 11/17/11 11/21/11 Loratidine 10mg daily 25 Injection site reaction 1 11/28/11 ongoing Fading redness noted EDUCATION PROVIDED Discussed timeline for continuation of treatment after central radiology confirmation of scans. PLAN 1. Subject agrees to continue on study [id number] per protocol. 2. Next visit to be scheduled for 12/12/11 to include: Labs, physical examination, and infusion perprotocol (treatment to be determined based on central radiology read). Patient verbalizes understanding of, and agreement with, plan. Advised to contact this office for any questions/concerns, as well as for any new or worsening symptoms. documented in this encounter Plan of Treatment Not on file documented as of this encounter Visit Diagnoses Diagnosis Hodgkin's lymphoma- Primary Hodgkin's disease, unspecified documented in this encounter Care Teams Anchorman Relationship Specialty Start Date End Date Arabella Villarreal MD [address] [place] [address] PCP - General 09/16/11 documented as of this encounter
--- OUTSIDE RECORDS SUMMARY | 2024-04-07 01:43 | XMS_ITS | Encounter Summary ---
Author Organization [facility] [place] [address] Care Team Providers Care Methods Specialist Engineer Name Role Phone Arabella Villarreal MD Primary Care Provider [phone] Encounter Details Date Type Department Care Team (Late st Contact Info) Description 11/15/2011 External Results Hematology [place] [address] Myron Cruz MD [facility] [address] HEMATOLOGY [place] [address] Hodgkin's lymphoma Social History Tobacco Use Types [...] Procedure Name Priority Date/Time Associated Diagnosis Comments CBC (WITH DIFF) STAT 11/14/2011 3:46 PM EDT Hodgkin's lymphoma COMPREHENSIVE METABOLIC PANEL STAT 11/14/2011 3:46 PM EDT Hodgkin's lymphoma documented in this encounter Results * (ABNORMAL) CBC (with Diff) (11/14/2011 3:46 PM EDT) White Blood Cell 2.31(EXTER NAL/ABN) Hemoglobin 11.0(EXTER NAL/ABN) 12.0 - 16.0 Hematocrit 33.5(EXTER NAL/ABN) 36.0 - 46.0 Platelet 305(Radiology Nurse al Lab) Neutrophil Absolute (ANC) - Automated 0.60(EXTER NAL/ABN) Blood specimen (specimen) 11/14/2011 3:46 PM EDT Myron Cruz MD HEMATOLOGY ORDERAB LES * (ABNORMAL) Comprehensive metabolic panel (non-fasting) (11/14/2011 3:46 PM EDT) Calcium 8.6(Exter nal Lab) 8.7 - 10.7 Glucose 90(Radiology Nurse al Lab) Blood Urea Nitrogen 15(Radiology Nurse al Lab) 4 - 21 Creatinine 0.7(Exter nal Lab) 0.5 - 1.1 Protein, Total 7.0(Exter nal Lab) 6.4 - 8.2 Albumin 4.1(Exter nal Lab) 3.5 - 5.0 Bilirubin, Total 0.2(EXTER NAL/ABN) 0.1 - 1.4 Alkaline Phosphatase 59(Radiology Nurse al Lab) Sodium 139(Exter nal Lab) 137 - 147 Potassium 4.2(Exter nal Lab) 3.4 - 5.3 Chloride 104(Exter nal Lab) 99 - 108 Carbon Dioxide 26(Radiology Nurse al Lab) 22 - 29 Aspartate Aminotransferase 11(SENIOR SYSTEMS SOFTWARE ENGINEER AL/ABN) 13 - 35 Alanine Aminotransferase 19(Radiology Nurse al Lab) 7 - 35 Blood specimen (specimen) 11/14/2011 3:46 PM EDT Myron Cruz MD CHEMISTRY ORDERABL ES documented in this encounter Visit Diagnoses Diagnosis Hodgkin's lymphoma Hodgkin's disease, unspecified documented in this encounter Care Teams Methods Specialist Engineer Relationship Specialty Start Date End Date Arabella Villarreal MD [address] [place] [address] 1 [place] [address] PCP - General 09/16/11 documented as of this encounter
--- OUTSIDE RECORDS SUMMARY | 2024-04-07 01:43 | XMS_ITS | Encounter Summary ---
[place] [address] Care Team Providers Care Sensitizer Name Role Phone Arabella Villarreal MD Primary Care Provider [phone] Reason for Visit * Reason Comments Follow-up Chemotherapy Encounter Details Date Type Department Care Team (Late st Contact Info) Description 10/31/2011 11:30 AM EDT Office Visit Hematology [place] [address] Hodgkin's lymphoma (Primary Dx) Social History Tobacco [...] Sign Reading Time Taken Comments Blood Pressure 112/66 10/31/2011 11:36 AM EDT Pulse 66 10/31/2011 11:36 AM EDT Temperature 36.7 ??C (98.1 ??F) 10/31/2011 11:36 AM E DT Respiratory Rate 16 10/31/2011 11:36 AM EDT Oxygen Saturation 100% 10/31/2011 11:36 AM EDT Inhaled Oxygen Concentration - - Weight 90.9 kg (200 lb 6.4 oz) 10/31/2011 11:36 AM EDT Height 169 cm (5' 6.54) 10/31/2011 11:36 AM EDT Body Mass Index 31.83 10/31/2011 11:36 AM EDT documented in this encounter Progress Notes * Olga Espinoza RN - 10/31/2011 12:04 PM EDT RESEARCH NURSE OFFICE NOTE CYCLE # 1 DAY # 15 (ABVD) 10/31/2011 [id number]: Phase II Trial of Response-Adapted Therapy Based on Positron Emission Tomography (PET) for Bulky Stage I and Stage II Classical Hodgkin Lymphoma (HL) SUBJECTIVE Chasity presented to hem-onc clinic, accompanied by Nehemiah, for day 15 of cycle 1 of ABVD as per protocol. Evaluated by Cyndy Alfaro APRN, please see her note for details. Please also see multiple telephone notes outlining interval history since 10/22/11. Chasity states that she feels generally well today, and reports that she placed Scopolamine patch and took Ativan prior to coming in to the hospital today as instructed. Reports that she did feel as though I burned my mouth for a day after chemotherapy, but used Biotene mouthwash and this resolved quickly. Appetite is improving this week. Chasity states that she is sleeping ok and reports that she is trying to limit caffeine intake. Continues to try to work as she is able. Denies pain, headache, fevers, chest pain, shortnessof breath, heartburn, diarrhea, constipation, numbness or tingling. STUDY ASSESSMENTS COMPLETED CBC, CMP, physical exam, AE assessment CHEMOTHERAPY I verified that [...] 375 mg/m2, total dacarbazine dose ordered = 775 mg. AE/SIDE EFFECT MONITORING # AE Grade (CTCAE v. 4.0) Start date Stop Date Study Related Interventions/Outcome 1 Nausea 2 10/17/11 10/24/11 Worst in AM 2 Nausea 1 10/24/11 ongoing Scopolamine patch, prn Compazine/Ativan/Zofran 3 Headache 1 10/23/11 10/26/11 4 Headache 2 10/26/11 10/26/11 Avoid Zofran; tylenol/excedrin prn 5 Headache 1 10/27/11 ongoing Excedrin prn 4 Pain 1 10/19/11 10/22/11 Area of previous PIV site, no intervention as team not aware at time of onset; advised warm compresses on 10/22/11 5 Fatigue 2 10/17/11 10/22/11 6 Fatigue 1 10/22/11 ongoing Alternate rest/activity periods as able 7 Mucositis oral 1 10/18/11 10/18/11 Biotene prn 8 Insomnia 1 10/17/11 10/23/11 EDUCATION PROVIDED Discussed amended plan for at-home use of antiemetics, based on symptomatology from this past cycle. Chasity advised to continue taking ativan @ bedtime as needed, as well as to change scopolamine patch in 3 days. For breakthrough nausea, encouraged Chasity to use Compazine 5mg every 6 hours as needed and reserve Zofran for nausea refractory to the compazine. PLAN 1. Subject agrees to continue on study [id number] per protocol. 2. Next visit (C2D1) to be scheduled for 11/14/11 to include: Labs, MD visit, and ABVD per protocol. Patient verbalizes understanding of, and agreement with, plan. Advised to contact this office for any questions/concerns, as well as for any new or worsening symptoms. documented in this encounter Plan of Treatment Not on file documented as of this encounter Visit Diagnoses Diagnosis Hodgkin's lymphoma- Primary Hodgkin's disease, unspecified documented in this encounter Care Teams Sensitizer Relationship Specialty Start Date End Date Arabella Villarreal MD [address] [place] [address] PCP - General 09/16/11 documented as of this encounter
--- OUTSIDE RECORDS SUMMARY | 2024-04-07 01:43 | XMS_ITS | Encounter Summary ---
Author Organization [facility] [address] Care Team Providers Care Jig Filler Name Role Phone Arabella Villarreal MD Primary Care Provider [phone] Encounter Details Date Type Department Care Team (Late st Contact Info) Description 11/22/2011 Orders Only Hematology [place] [address] Myron Cruz MD [facility] [address] HEMATOLOGY [place] [address] Hodgkin's lymphoma (Primary Dx) Social History Tobacco [...] Progress Notes * Olga Espinoza RN - 11/22/2011 4:42 PM EDT RESEARCH NURSE TELEPHONE NOTE [id number]: Phase II Trial of Response-Adapted Therapy Based on Positron Emission Tomography (PET) for 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 Cruz. Printed prescription signed by Dr. Cruz. Script called into [facility] ([phone]) voicemail, as pharmacist not currently available. Paper script voided. Message left for patient on name-identified home phone voicemail informing her that this medicationhas been called in and instructions for taking. Advised caution until she knows how this medicationaffects her and indicated that using concurrently with Ativan may cause marked somnolence. Requested that patient call me back if she has any questions/concerns. documented in this encounter Plan of Treatment Not on file documented as of this encounter Visit Diagnoses Diagnosis Hodgkin's lymphoma- Primary Hodgkin's disease, unspecified documented in this encounter Care Teams Jig Filler Relationship Specialty Start Date End Date Arabella Villarreal MD [address] [place] [address] PCP - General 09/16/11 documented as of this encounter
--- OUTSIDE RECORDS SUMMARY | 2024-04-07 01:43 | XMS_ITS | Encounter Summary ---
Author [place] [address] Care Team Providers Care Shells Inspector Name Role Phone Arabella Villarreal MD Primary Care Provider Encounter Details Date Type Department Care Team (Late st Contact Info) Description 12/06/2011 7:00 AM EDT Clinical Support [facility] [place] [phone] Social History Tobacco Use Types Packs/Day Years [...] on filedocumented in this encounter Care Teams Shells Inspector Relationship Specialty Start Date End Date Arabella Villarreal MD [address] [place], [place] [id number] PCP - General 09/16/11 documented as of this encounter
--- OUTSIDE RECORDS SUMMARY | 2024-04-07 01:43 | XMS_ITS | Encounter Summary ---
[place] [address] Care Team Providers Care Credit Product Analyst Name Role Phone Arabella Villarreal MD Primary Care Provider [phone] Reason for Visit * Reason Comments Chemotherapy Encounter Details Date Type Department Care Team (Latest Contact Info) Description 12/12/2011 12:09 PM EDT - 12/12/2011 11:59 PM EDT Hospital Encounter [place] [address] Hodgkin's lymphoma (Primary Dx) Social History Tobacco [...] liberally to [facility] site 30-60 minutes prior to lab appointment, [...] Gastroesophageal Reflux 04/02/19 23 vitamin 27 & [id number] 60 mg iron-1 mg tablet Take 1 tablet by mouth daily. 04/02/2022 documented as of this encounter Progress Notes * Glendy Swenson - 02/06/2012 12:07 PM ESTEncounter addended by: Glendy Swenson on: 02/06/2012 12:07 PM
Documentation filed: Rx Order Verification * Santiago Eller [facility] - 01/09/2012 11:15 AM ESTEstewounter addended by: Santiago Eller Margareth on: 01/09/2012 11:15 AM
Documentation filed: Rx Order Verification * Elicia Graves RN - 12/12/2011 3:19 PM EDT Patient Name: Chasity Gallo Patient Age: 31 y.o. Birthdate: 1980 Admit date: 12/12/2011 Attending Physician: Shanti bingham. providers found TIME TREATMENT STARTED: 1500 TIME TREATMENT ENDED: 1755 Chasity Gallo, 31 y.o. female with diagnosis of Hodgkin's Lymphoma is here for chemotherapy infusion of ABVD. PROTOCOL: [id number] CYCLE: 03/06 DAY: 1 S: Pt. Expressed concern over experiencing nausea on the ride home. She requested that we give her Ativan prior to her discharge home with her . O: Patient is alert, oriented and appropriate. Color wnl. Chemotherapy orders independently verified for drug name, route and dosage per patient's height, weight and BSA by Elicia Graves RN and Pharmacy Personnel. REACTIONS (DESCRIPTION, TIME, INTERVENTION AND EFFECTIVENESS) None during treatment A: Pt. Tolerated treatment well. Chasity Gallo confirms that all questions and issues have been addressed. P: Return to clinic as previously scheduled. Discharge Note: Port flushed without difficulty. documented in this encounter Plan of Treatment Not on file documented as of this encounter Visit Diagnoses Diagnosis Hodgkin's lymphoma- Primary Hodgkin's disease, unspecified documented in this encounter Administered Medications Inactive Administered Medications - up to 3 most recent administrations Medication Order MAR Action Action Date Dose Rate Site acetaminophen (TYLENOL) tablet 650 mg 650 mg, Oral, ONCE, 1 dose, On Marleny 12/12/11 at 1500, Pre-bleomycin Maximum dose of acetaminophen is 4000 mg from all sources in 24 hours., Routine Given 12/12/2011 3:10 PM EDT 650 mg bleomycin (BLEOCIN) 21 Units in sodium chloride 0.9% 57 mL chemo infusion 21 Units, Intravenous, ONCE, 1 dose, On Marleny 12/12/11 at 1445, Administer over 30 Minutes, 1 unit = 1 mg New Bag 12/12/2011 4:27 PM EDT 21 Units 114 mL/hr dacarbazine (DTIC) 776 mg in dextrose 5% 327.6 mL chemo infusion 776 mg, Intravenous, ONCE, 1 dose, On Marleny 12/12/11 at 1530, Administer over 30 Minutes New Bag 12/12/2011 5:06 PM EDT 776 mg 655.2 mL/hr DOXOrubicin (ADRIAMYCIN) chemo injection 52 mg 52 mg, Intravenous, ONCE, 1 dose, On Marleny 12/12/11 at 1530, Administer over 5 Minutes, Vesicant/irritant. Avoid extravasation Given 12/12/2011 4:17 PM EDT 52 mg 312 mL/hr fosaprepitant (EMEND) 150 mg in sodium chloride 0.9% 155 mL infusion 150 mg, Intravenous, ONCE, 1 dose, On Marleny 12/12/11 at 1500, Administer over 30 Minutes, 30 minutes pre-chemotherapy New Bag 12/12/2011 3:10 PM EDT 150 mg 310 mL/hr hydrocortisone sodium succinate (PF) (SOLU-CORTEF) injection 100 mg 100 mg, Intravenous, ONCE, 1 dose, On Marleny 12/12/11 at 1500, Pre-bleomycin Given 12/12/2011 3:10 PM EDT 100 mg LORazepam (ATIVAN) tablet 0.5-1 mg 0.5-1 mg, Oral, EVERY 4 HOURS PRN, Starting on Marleny 12/12/11 at 1439, Until Marleny 02/06/12 at 1146, Anxiety, Nausea, Vomiting, Routine Given 12/12/2011 5:09 PM EDT 0.5 mg palonosetron (ALOXI) injection 0.25 mg 0.25 mg, Intravenous, ONCE, 1 dose, On Marleny 12/12/11 at 1500, Pre-chemotherapy, Routine Given 12/12/2011 3:10 PM EDT 0.25 mg vinBLAStine (VELBAN) chemo injection 12 mg 12 mg, Intravenous, ONCE, 1 dose, On Marleny 12/12/11 at 1530, Administer over 5 Minutes, FOR IV USE ONLY. FATAL IF GIVEN BY OTHER ROUTES. Vesicant/irritant Avoid extravasation Given 12/12/2011 4:22 PM EDT 12 mg 144 mL/hr documented in this encounter Care Teams Credit Product Analyst Relationship Specialty Start Date End Date Arabella Villarreal MD [address] [place] [address] PCP - General 09/16/11 documented as of this encounter
--- OUTSIDE RECORDS SUMMARY | 2024-04-07 01:43 | XMS_ITS | Encounter Summary ---
Author Organization [facility] [place] [address] Care Team Providers Care Palletizer Operator Name Role Phone Arabella Villarreal MD Primary Care Provider [phone] Encounter Details Date Type Department Care Team (Late st Contact Info) Description 11/12/2011 Telephone Hematology [place] [address] Cyndy Alfaro, MANAGER SUPPLY CHAIN PLANNING [facility] DR HEMATOLOGY [place] [address] Social History Tobacco Use Types Packs/Day Years [...] Telephone Encounter - Olga Espinoza RN - 11/12/2011 8:04 PM EDT RESEARCH NURSE TELEPHONE NOTE Date: 11/12/2011 (home) Voicemail from patient received stating that the school water tested positive for coliform last week and that she had ank water from the school on 11/05/11, which was before the test was reported. Concerned that this could potentially be connected to her recent onset of diarrhea. Return call placed, spoke with Chasity, who stated that she has not had any further diarrhea since this morning when she took immodium as instructed. Reports that her stomach still is not settled. Chasity advised that, although she could have been exposed to coliform in the water, the Keflex is also quite possibly causing the diarrhea. Chasity denies any other signs or symptoms of infection at this point and states that she plans to go back to work tomorrow. Encouraged Chasity to continue monitoring her temperature frequently and contact this office for any new or worsening symptoms, including fever of 100.4 or greater. Patient verbalizes understanding of, and agreement with, plan. 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 Spoke w/ Chasity who stated that she has had abdominal cramping and 4 bouts of watery diarrhea this morning. Cramping is not debilitating; patient reports that she is maintaining good oral intake (both food and fluids). Today is day 4 of her 7-day Keflex course. Also states I think I have hemorrhoids, which are painful. Denies bleeding or clots in toilet; tiny amount of bright red blood present on tissue. Remains afebrile with improvement to upper respiratory congestion this morning. Per discussion with Cyndy Alfaro APRN, ok to take immodium for diarrhea according to package instructions. Encouraged Chasity to call back this afternoon if diarrhea does not begin to improve this afternoon. Patient inquires in regards to what to expect with upcoming mediport placement. Discussed mediport placement procedure, physical appearance of port, how the port is accessed, and potential complications associated with mediports. Employment Interviewer to send patient information electronically to Plan: 1. Pt will continue on study [id number] per protocol. 2. Scheduled to have labs done locally at [facility] on 11/14/11, followed by C2D1 (11/15/11) to include: MD/MANAGER SUPPLY CHAIN PLANNING visit, mediport placement, and ABVD per protocol. Patient verbalizes understanding of, and agreement with, plan. Advised to contact this office for any questions/concerns, as well as for any new or worsening symptoms. documented in this encounter Plan of Treatment Not on file documented as of this encounter Visit Diagnoses Not on filedocumented in this encounter Care Teams Palletizer Operator Relationship Specialty Start Date End Date Arabella Villarreal MD [address] [place] [address] [address] [facility] [address] [place] [address] PCP - General 09/16/11 documented as of this encounter
--- OUTSIDE RECORDS SUMMARY | 2024-04-07 01:43 | XMS_ITS | Encounter Summary ---
Author Organization [facility] [place] [address] Care Team Providers Care Electronics Scale Tester Name Role Phone Arabella Villarreal MD Primary Care Provider [phone] Encounter Details Date Type Department Care Team (Late st Contact Info) Description 11/21/2011 Telephone Hematology [place] [id number] Myron Cruz MD [facility] DR HEMATOLOGY [place] [address] Social History Tobacco Use Types Packs/Day Years [...] encounter Miscellaneous Notes * Telephone Encounter - Myron Cruz MD - 11/22/2011 10:30 AM EDT Can try Ambien 10mg at night. No ativan at night. 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 Mouth soreness lasted longer Inquires about remedies that she may use besides chewing gum all the time. Also having difficulty with intermittent insomnia, stating that the Ativan helps her to relax and feel calm, but does not help her sleep. Went to see PCP on Friday afternoon, who thought that she may have seasonal allergies causing her ear pain. Recommended [id number] daily, which Chasity has been taking with good effect for both ear pain and headaches. Education Provided: Advised Chasity to try to use plastic utensils while eating, as well as that sucking on ice may help with metallic taste. Plan: 1. Field Collector to contact Dr. Cruz/Cyndy Alfaro APRN for sleep aid per patient request. 2. Field Collector to place follow-up call to patient on 11/22/11 to evaluate interventions for dysgeusia. Patient verbalizes understanding of, and agreement with, plan. Advised to contact this office for any questions/concerns, as well as for any new or worsening symptoms. documented in this encounter Plan of Treatment Not on file documented as of this encounter Visit Diagnoses Not on filedocumented in this encounter Care Teams Electronics Scale Tester Relationship Specialty Start Date End Date Arabella Villarreal MD [address] [place] [address] PCP - General 09/16/11 documented as of this encounter
--- OUTSIDE RECORDS SUMMARY | 2024-04-07 01:43 | XMS_ITS | Encounter Summary ---
Author Organization [facility] [place] [address] Care Team Providers Care Software Support Analyst Name Role Phone Arabella Villarreal MD Primary Care Provider [phone] Reason for Visit * Reason Comments Labs Only Encounter Details Date Type Department Care Team (Latest Contact Info) Description 12/12/2011 12:09 PM EDT - 12/12/2011 11:59 PM EDT Hospital Encounter Hematology [place] [address] INFUSION THERAPY, MEDS None Myron Cruz MD [facility] DR HEMATOLOGY [place] [address] Hodgkin's lymphoma Discharge Disposition: Home Social History [...] Sign Reading Time Taken Comments Blood Pressure 108/55 12/12/2011 5:26 PM EDT Pulse 75 12/12/2011 5:26 PM EDT Temperature 37.1 ??C (98.8 ??F) 12/12/2011 5:26 PM ED T Respiratory Rate 18 12/12/2011 5:26 PM EDT Oxygen Saturation 100% 12/12/2011 5:26 PM EDT Inhaled Oxygen Concentration - - [...] liberally to [facility] site 30-60 minutes prior to lab appointment, [...] tablet 2 11/07/2011 02/26/2012 scopolamine (TRANSDERM-SCOP) 1.5 mgIndications:Sweetiek in's lymphoma Place 1 patch onto the [...] Gastroesophageal Reflux 04/02/19 23 vitamin 27 & [id number] 60 mg iron-1 mg tablet Take 1 tablet by mouth daily. 04/02/2022 documented as of this encounter Progress Notes * Abilio Best LNA - 12/12/2011 5:27 PM EDTEncounter addended by: IMAN Suarez on: 12/12/2011 5:27 PM
Documentation filed: Flowsheet VN * Vishal Osorio RN - 12/12/2011 12:45 PM EDT Patient Name: Chasity Gallo Patient Age: 31 y.o. Birthdate: 1980 Admit date: 12/12/2011 Attending Physician: Infusion Therapy,Meds Port accessed labs drawn. CBC, CMP today patient to follow up with medical oncologist treatment today pending lab results. Labs sent stat. documented in this encounter Plan of Treatment Not on file documented as of this encounter Procedures Procedure Name Priority Date/Time Associated Diagnosis Comments DIFFERENTIAL, AUTOMATED STAT 12/12/2011 12:35 PM EDT CBC (WITH DIFF) STAT 12/12/2011 12:35 PM EDT Hodgkin's lymphoma COMPREHENSIVE METABOLIC PANEL STAT 12/12/2011 12:35 PM EDT Hodgkin's lymphoma documented in this encounter Results * (ABNORMAL) DIFFERENTIAL, AUTOMATED (12/12/2011 12:35 PM EDT) Neutrophil % 39.7 34.0 - 71.0 % [facility] Neutrophil Absolute 0.95(L) 1.50 - 6.30 x10(3)/mc L CERNER [facility] Lymph % 40.2 19.0 - 53.0 % CERNER MILLENNIUM Lymphocytes Abs 1.0 1.0 - 3.6 x10(3)/mc L C[facility]ER [facility]ILLEN[facility] Monocyte % 15.1(H) 4.0 - 13.0 % C[facility]ER [facility]ILLENNI[facility] Monocyte Abs 0.4 0.2 - 1.0 x10(3)/mc L C[facility]ER [facility]ILL[facility] Eos % 2.9 0.0 - 7.0 % CERNER MILLENNIUM Eosinophils Abs 0.1 0.0 - 0.5 x10(3)/mc L CERNER MILLENNIUM Basophil % 2.1(H) 0.0 - 2.0 % CERNER MILLENNIUM Baso [...] x10(3)/mc L CERNER MILLENNIUM Blood specimen (specimen) 12/12/2011 12:35 PM EDT 12/12/2011 12:45 PM EDT Myron Cruz MD HEMATOLOGY ORDERAB LES [facility] * (ABNORMAL) Comprehensive metabolic panel (non-fasting) (12/12/2011 12:35 PM EDT) [facility] Glucose 90 60 - 199 mg/dL CERNER MILLENNIUM Comment:Diabetes: >=200 mg/d L plus symptoms Blood Urea Nitrogen 11 8 - 18 mg/dL CERNER MILLENNIUM Creatinine 0.68(L) 0.70 - 1.20 mg/dL CERNER MILLENNIUM Comment: Please note that the pediatric reference intervals supplied above were not validated at [facility]. Results from pediatric patients should be interpreted [...] - 107 mmol/L CERNER MILLENNIUM Carbon Dioxide 24 22 - 31 mmol/L CERNER MILLENNIUM Anion Gap 8 5 - 15 mmol/L CERNER MILLENNIUM Calcium 8.9 8.5 - 10.5 mg/dL CERNER MILLENNIUM Protein, Total 6.5 6.4 - 8.3 gm/dL CERNER MILLENNIUM Albumin 4.3 3.2 - 5.2 gm/dL CERNER MILLENNIUM Aspartate Aminotransferase 11 0 - 30 unit/L CERNER MILLENNIUM Alanine Aminotransferase 9 0 - 30 unit/L CERNER MILLENNIUM Alkaline Phosphatase 41 40 - 104 unit/L CERNER MILLENNIUM Bilirubin, [...] J Am Soc Nephrol;6:1963-72. Blood specimen (specimen) 12/12/2011 12:35 PM EDT 12/12/2011 12:45 PM EDT Narrative Resulting Agency Comment Spec In Lab Myron Cruz MD [facility]L ES [facility] * (ABNORMAL) CBC (with Diff) (12/12/2011 12:35 PM EDT) White Blood Cell 2.4(L) 4.0 - 10.0 x10(3)/mc L CERNER MILLENNIUM Red Blood Cell 3.94 3.93 - 5.22 x10(6)/mc L CERNER MILLENNIUM Hemoglobin 11.2 11.2 - 15.7 gm/dL CERNER MILLENNIUM Hematocrit 33.9(L) 34.0 - 45.0 % CERNER MILLENNIUM Mean Cell Volume 86.0 79.0 - 94.0 fL CERNER MILLENNIUM Mean Cell Hemoglobin 28.4 26.6 - 32.2 pg CERNER MILLENNIUM Mean Cell Hemoglobin Concentration 33.0 32.0 - 36.5 gm/dL CERNER MILLENNIUM Platelet 319 145 - 370 x10(3)/mc L CERNER MILLENNIUM RDW Standard Deviation 46.8(H) 35.0 - 46.0 fL [facility] RDW coefficient of variation 15.1(H) 10.9 - 14.4 % [facility] Mean Platelet Volume 8.7(L) 9.0 - 12.0 fL [facility] Blood specimen (specimen) 12/12/2011 12:35 PM EDT 12/12/2011 12:45 PM EDT Narrative Resulting Agency Comment Spec In Lab Myron Cruz MD HEMATOLOGY ORDERAB LES [facility] documented in this encounter Visit Diagnoses Diagnosis Hodgkin's lymphoma Hodgkin's disease, unspecified documented in this encounter Care Teams Software Support Analyst Relationship Specialty Start Date End Date Arabella Villarreal MD [address] [place] [address] PCP - General 09/16/11 documented as of this encounter
--- OUTSIDE RECORDS SUMMARY | 2024-04-07 01:43 | XMS_ITS | Encounter Summary ---
[place] [address] Care Team Providers Care Hammer Smith Name Role Phone Arabella Villarreal MD Primary Care Provider [phone] Encounter Details Date Type Department Care Team (Latest Contact Info) Description 11/15/2011 8:08 AM EDT - 11/15/2011 11:59 PM EDT Hospital [place] [address] [address], DR VANG Hodgkin's lymphoma Social History Tobacco Use Types [...] Sign Reading Time Taken Comments Blood Pressure 112/63 11/15/2011 10:45 AM EDT Pulse 48 11/15/2011 10:45 AM EDT Temperature 36.8 ??C (98.2 ??F) 11/15/2011 10:00 AM E DT Respiratory Rate 16 11/15/2011 10:45 AM EDT Oxygen Saturation 100% 11/15/2011 10:45 AM EDT Inhaled Oxygen Concentration - - Weight - - Height - - Body Mass Index - - documented in this encounter Discharge Instructions * Discharge Instructions* Barbie Kay RN - 11/15/2011 10:09 AM EDT [facility] Department of Vascular and Interventional Radiology Discharge Instructions for your Chest Port x You have received a ???Power Port?? , which provides access for infusions and blood draws. What makes this a ???Power Port?? is the unique ability to ???power inject?? contrast (intravenous dye) through the port when getting a CT scan, which produces superior images (pictures). Patients who don???t have these special ports need to have an IV started if they need dye injected for their CT scan. Your port is printed with the letters ???CT?? which can be detected by x- ray to identify it as a ???Power Port?? . You will be provided with an ID card stating the recreational specialist and type of port youhave. Please carry this with you in a safe place. . Bandage: There is a sterile dressing over the port site consisting of small gauze with a clear dressing (Tegaderm or [id number] ). This dressing should be left in place for 48 hours. If the clear dressing becomes loose you should place tape over the edges to secure it in place. Note: If you have steri-strips beneath your dressing, simply allow them to fall off. Do not peel them off. Bathing: Do not take a shower until 48 hours after your port is placed; after this time you may shower with the dressing in place, then remove it and pat your skin dry. After 48 hours, we recommend that you cover the area with Saran Wrap and tape the edges for 1 week while showering, facing away from the shower stream. You may use a bandaid to cover the site after the 48 hours are up if there is any drainage. No tub baths, whirlpools or swimming for one week following port placement. What to expect when your port is accessed: 1. You may feel tenderness the first few times it is accessed but generally this subsides over time. Ask your healthcare provider to use a local anesthetic on the site if discomfort is a problem for you. You may ask for a prescription for a topical cream (EMLA) from your clinician; you may apply athome prior to your appointments, to help numb the skin over your port. 2. The clinician should be wearing sterile gloves and a mask during the access procedure 3. The skin over and 2 inches around the port should be cleaned with a disinfectant 4. Tell the clinician if you would like the skin numbed (lidocaine) before the access needle is placed. 5. Unless you are unable to take heparin (blood thinner), the port should be injected with a heparin solution before deaccess (at end of each treatment or blood draw). When to call your healthcare provider: If you notice bleeding from the puncture site in your neck, or from the port incision on your chest, you should apply firm pressure over the site for 10-15 minutes, keeping the site covered. Call if you are still bleeding after 10-15 minutes. If you develop pain, redness, drainage or swelling at or around the port site, or the puncture sitein the neck If you develop fever (elevation of more than 2 degrees or greater than 101F) and/or shaking chills When to call the Interventional Radiology Department: Please call with any questions or concerns. If it is during regular office hours, please call [phone]. If it is after regular office hours, or on weekends or holidays, please call [phone] and ask to speak to the [employer] Worker furniture sales consultant for Interventional Radiology. __x_ You have received medication during your procedure to help lesson anxiety and keep you comfortable. These medications affect judgement and reaction time. We [...] drainage occurs, please contact your M. D. Revised 03/15/11 documented in this encounter Medications at Time of Discharge Medication Sig Dispensed Refills Start Date End Date Lysine HCl 500 mg TabIndications:Co ld sores Take 500 mg by mouth 2 times daily. Reported on 03/18/2016 Indications: Cold sores lidocaine-prilocai ne (EMLA) creamIndications:H odgkin's disease Apply topically. [facility] 30-60 minutes prior to lab appointment, cover with dressing as instructed. 30 g 2 11/15/2011 07/24/2012 LORazepam (ATIVAN) 0.5 mg tabletIndications: Hodgkin's lymphoma Take 1 tablet by mouth every 6 hours as needed (Nausea). 50 tablet 3 11/13/2011 07/24/2012 cephALEXin (KEFLEX) 500 mg capsule Take 1 capsule by mouth 2 times daily for 7 days. 14 capsule 0 11/09/2011 11/16/2011 prochlorperazine (COMPAZINE) 5 mg tabletIndications: Hodgkin's lymphoma Take 1 tablet by mouth every 6 hours as needed for Nausea. 30 tablet 2 11/07/2011 02/26/2012 scopolamine (TRANSDERM-SCOP) 1.5 mgIndications:Hodg kin's lymphoma Place 1 patch onto the skin every 72 hours. Use as needed for nausea not relieved by Zofran or Compazine. 10 patch 12 10/22/2011 07/24/2012 ondansetron (ZOFRAN) 4 mg tabletIndications: Hodgkin's lymphoma Take 2 tablets by mouth every 8 hours as needed for Nausea. 20 tablet 0 10/16/2011 01/24/2012 acetaminophen (TYLENOL) 500 mg tablet Take 1,000 mg by mouth every 6 hours as needed. 012 ferrous gluconate 325 mg (37.5 mg iron) tablet Take 325 mg by mouth daily (with breakfast). 02/20/20 12 ranitidine (ZANTAC) 150 mg tabletIndications: gastroesophageal reflux disease Take 150 mg by mouth daily as needed. Indications: Gastroesophageal Reflux 04/02/19 23 vitamin 27 & [id number] 60 mg iron-1 mg tablet Take 1 tablet by mouth daily. 04/02/2022 documented as of this encounter Progress Notes * Huber Diaz - 11/15/2011 9:09 AM EDT IR brief Pre-procedure note Physical exam: Heart: RRR, no m/r/g Lungs: CTA bilat ASA Classification ___ Class 1 Healthy patient, no medical problems _X_ Class 2 Mild systemic disease ___ Class 3 Severe systemic disease, but not incapacitating ___ Class 4 Severe systemic disease that is a constant threat to life ___ Class 5 Moribund, not expected to live 24 hours irrespective of operation Mallampati Classification ___ Class I: soft palate, fauces, uvula, pillars _X_ Class II: soft palate, fauces, portion of uvula ___ Class III: soft palate, base of uvula ___ Class IV: hard palate only Written informed consent obtained. Medications to discontinue for procedure: None Prophylactic antibiotic: Ancef 1 gm IV Planned access site / position: RIJ, supine * Huber Diaz - 11/14/2011 1:24 PM EDT PRE-PROCEDURE VIR NOTE: PCP: ARABELLA VILLARREAL MD Referring Physician: Myron Cruz Procedure Indication: 31 yo F with Hodgkins Lymphoma, need for chemotherapy with poor peripheral access. Planned Procedure: Mediport placement under moderate sedation. Presenting Diagnosis/ Complaint: As above Past Medical/Surgical History Patient Active Problem List Diagnoses Code ??? Hodgkin's lymphoma 201.90AG No past medical history on file. Past Surgical History Procedure Date ??? Bx/remv, lymph node, deep cerv 09/25/2011 BIOPSY OR EXCISION OF LYMPH NODE(S), OPEN, DEEP CERVICAL NODES performed by ANA LOPEZ at [facility] OR ??? Bone marrow bx, needle/trocar 10/10/2011 ([facility]) BONE MARROW,BIOPSY performed by MYRON CRUZ at [facility] OR Medications: Current outpatient prescriptions ordered prior to encounter Medication Sig Dispense Refill ??? LORazepam (ATIVAN) 0.5 mg tablet Take 1 tablet by mouth every 6 hours as needed (Nausea). 50 tablet 3 ??? cephALEXin (KEFLEX) 500 mg capsule Take 1 capsule by mouth 2 times daily for 7 days. 14 capsule0 ??? prochlorperazine (COMPAZINE) 5 mg tablet Take [...] as needed for Nausea. 20tablet 0 ??? OXYcodone (ROXICODONE) 5 mg immediate [...] Gastroesophageal Reflux ? ? vitamin 27 & [id number] 60 mg iron-1 mg tablet Take 1 [...] mg Oral Q6H PRN Myron Cruz MD Allergies: Review of patient's allergies indicates no known allergies. Social History and Habits: History Social History ??? Marital Status: Spouse Name: N/A Number of Children: N/A ??? Years of Education: N/A Occupational History ??? Not on file. Social History Main Topics ??? Smoking status: Never Smoker ??? Smokeless tobacco: Never Used ??? Alcohol Use: No ??? Drug Use: No ??? Sexually Active: Yes Control/ Protection: Other-see comments trying to get at this time, just finsihed menses Other Topics Concern ??? Not on file Social History Narrative ??? No narrative on file Significant Family History: No family history on file. Physical Exam: Pending Labs: Lab Results Component Value Date WBC 2.0* 10/31/2011 HCT 35.1 10/31/2011 PLATELET 366 10/31/2011 INR 1.0 09/24/2011 BUN 8 10/17/2011 CREATININE 0.67* 10/17/2011 ALKPHOS 55 10/17/2011 AST 9 10/17/2011 ALBUMIN 3.9 10/17/2011 BILIDIR 0.1 10/17/2011 BILITOT 0.2 10/17/2011 ALT 6 10/17/2011 PROT 6.8 10/17/2011 Prior Imaging: CT C/A/P 10/17/11 Assessment/Plan: Vidhi Perez is a 31 y.o. female with Hodgkins Lymphoma, need for chemotherapy with poor peripheral access. Plan mediport placement under moderate sedation. Prophylactic antibiotic: Ancef 1 gm IV. Medications to discontinue: None. Patient Positioning / Access site: Supine/RIJ. * Saadia Moss RN - 11/12/2011 2:28 PM EDT [facility] NURSING DATABASE Name: VIDHI PEREZ Date of : 1980 AGE 31 y.o. [address]: [address] [place] [id number] (home) [phone] (work) Mobile: Telephone Information: Referring Provider: Myron Cruz Reason for Visit: MEDIPORT PLACEMENT: NEEDED FOR CHEMO, POOR PERIPHERAL ACCESS. No Known Allergies Pertinent PMH: Patient Active Problem List Diagnoses Code ??? Hodgkin's lymphoma 201.90AG Pertinent PSH: Past Surgical History Procedure Date ??? Bx/remv, lymph node, deep cerv 09/25/2011 BIOPSY OR EXCISION OF LYMPH NODE(S), OPEN, DEEP CERVICAL NODES performed by ANA LOPEZ at [facility] OR ??? Bone marrow bx, needle/trocar 10/10/2011 ([facility]) BONE MARROW,BIOPSY performed by MYRON CRUZ at [facility] Date/Procedure Comments: 09/17/11 CT Guided Mediastinal Biopsy Versed 6mg/Fent 300mcg. Maykel well. 11/15/2011 Chest port placement Versed 3 Mg/IV; Fentanyl 150 Mcg/IV; Cefazolin 1 GM/IVPB Laboratory Results: Lab Results Component Value Date BUN 8 10/17/2011 Lab Results Component Value Date CREATININE 0.67* 10/17/2011 Lab Results Component Value Date K 4.1 10/17/2011 Lab Results Component Value Date PLATELET 366 10/31/2011 Medications: Prior to Admission medications Medication Sig Start Date End Date Taking? Authorizing Provider cephALEXin (KEFLEX) 500 mg capsule Take 1 capsule by mouth 2 times daily for 7 days. 11/09/11 11/16/11Darwin Garcia MD prochlorperazine (COMPAZINE) 5 mg tablet Take 1 tablet by mouth every 6 hours as needed for Nausea.11/07/11 Myron Cruz MD Lysine HCl 500 mg Tab Take 500 mg by mouth 2 times daily. Indications: Cold sores Historical ProviderMD scopolamine (TRANSDERM-SCOP) 1.[address] 1 patch onto the skin every 72 hours. Use as needed for nausea not relieved by Zofran or Compazine. 10/22/11 Myron Cruz MD BACILLUS COAGULANS-INULIN ORAL Take by mouth daily. Historical Provider, ondansetron (ZOFRAN) 4 mg tablet Take 2 tablets by mouth every 8 hours as needed for Nausea. 10/16/11 Myron Cruz MD LORazepam (ATIVAN) 0.5 mg tablet Take 1 tablet by mouth every 6 hours as needed (Nausea). 10/16/11 Myron Cruz MD OXYcodone (ROXICODONE) 5 mg immediate release tablet Take 1-2 tablets by mouth every 4 hours as needed for Pain. 09/25/11 Braydon Lazaro MD acetaminophen (TYLENOL) 500 mg tablet Take 1,000 mg by mouth every 6 hours as needed. Historical Provider, ferrous gluconate 325 mg (37.5 mg iron) tablet Take 325 mg by mouth daily (with breakfast). Historical Provider, ranitidine (ZANTAC) 150 mg tablet Take 150 mg by mouth daily as needed. Indications: Gastroesophageal Reflux Historical Provider, vitamin 27 & [id number] 60 mg iron-1 mg tablet Take 1 tablet by mouth daily. Historical Provider, For outpatient procedures: This patient has been informed that they require a minibus driver to drive them home after this procedure. In the absence of a minibus driver, IR will not be able to perform this procedureand will need to reschedule. Pt verbalized understanding of these instructions during the pre-procedure education via phone. documented in this encounter Procedure Notes * Nimisha Gonsales PA - 11/15/2011 10:09 AM EDTProcedure(s): PRO INSERT TUNNELED CV CATH W SUBQ PORT, AGE 5 YRS OR OLDER VIR PROCEDURE NOTE: Procedure: Placement of right IJ single lumen chest port (Dignity CT POWER PORT) ACC#: [id number] Indication: Lymphoma, need access for chemotherapy TECHNIQUE: After discussing risks (including infection, hemorrhage, occlusion), and benefits, patient consented to the procedure and conscious sedation. A moment of truth was performed and the patient and procedure correctly identified. Due to the painful nature of the procedure, split doses of fentanyl and Versed were administered by the IR nurse during continuous monitoring of pulse, blood pressure and oxygen saturation. After maximal sterile barrier technique preparation of the right neck and upper chest, ultrasound was used to localize the right internal jugular vein. 1% lidocaine SQ was administered for anesthesia, and a 21 ga needle was advanced under ultrasound guidance into the IJ and a 0.018 inch wire was advanced into SVC. A 4 Fr introducer sheath was placed and the wire exchanged for a 0.035 inch wire. Lidocaine was then infiltrated in a caudal-lateral direction, and infiltrated over a 2.5 cm infraclavicular area for pocket creation. A 2 cm incision was made and, with blunt dissection, a pocket created. Port was attached to the catheter, placed into the pocket. A tunneler was then used to bring the catheter through the tunnel to the venotomy site. Venotomy was dilated to accommodate the peel-away sheath, and during breath-hold,the catheter advanced. Sheath was removed. Port flushed and aspirated well. The pocket was closed using a two layer technique with absorbable suture material (2-0 vicryl deep interrupted and 4-0 monocryl running subcuticular). Skin closed with indermil. Patient tolerated the procedure well. There were no immediate complications. Port left accessed. MEDICATIONS: Fentanyl 150 mcg IV Versed 3 mg IV Ancef 1 gram IV Contrast: None EBL: none Fluoro time: 0.2 minutes. IMPRESSION: US and fluoro guided placement single lumen right IJ Dignity CT POWER port, catheter tip in cavoatrial junction Port ready for use. Procedure performed by Nimisha Gonsales PA-C Attending: Dr. Lord documented in this encounter Miscellaneous Notes * Miscellaneous - Provider, Scanning - 11/21/2011 11:42 AM EDT * Miscellaneous - Provider, Scanning - 11/21/2011 11:04 AM EDT documented in this encounter Plan of Treatment Not on file documented as of this encounter Procedures Procedure Name Priority Date/Time Associated Diagnosis Comments IR MEDIPORT PLACEMENT Routine 11/15/2011 10:03 AM EDT Hodgkin's lymphoma documented in this encounter Results * IR mediport placement or removal (11/15/2011 10:03 AM EDT) Anatomical Region Laterality Modality X-Ray Angiograph y 11/15/2011 10:0 3 AM EDT Impressions 11/15/2011 1:42 PM EDT IMPRESSION: ?? US and fluoro guided placement single lumen right IJ Dignity CT POWER port, ?? catheter tip in cavoatrial junction Port ready for use. ? Procedure ?? performed by Nimisha Gonsales PA-C ?Attending: ?? Dr. Lord ? ; ?? {CR} ? ; ?? {CR} ? ; ?? {CR} ? ; ?? {CR} ? ; ?? {CR} ?? Narrative 11/15/2011 1:42 PM EDT ?VIR ?? PROCEDURE NOTE: ?Procedure: ?? Placement of right IJ single lumen chest port (Dignity CT ?? POWER PORT) ?ACC#: ?? [id number] ?Indication: ?? Lymphoma, need access for chemotherapy ?TECHNIQUE: ?? After discussing risks (including infection, hemorrhage, occlusion), and ?? benefits, patient consented to the procedure and conscious sedation. A moment ?? of truth was performed and the patient and procedure correctly identified. ?? Due to the painful nature of the procedure, split doses of fentanyl and ?? Versed were administered by the IR nurse during continuous monitoring of ?? pulse, blood pressure and oxygen saturation. ?After ?? maximal sterile barrier technique preparation of the right neck and upper ?? chest, ultrasound was used to localize the right internal jugular vein. 1% ?? lidocaine SQ was administered for anesthesia, and a 21 ga needle was advanced ?? under ultrasound guidance into the IJ and a 0.018 inch wire was advanced into ?? SVC. A 4 Fr introducer sheath was placed and the wire exchanged for a 0.035 ?? inch wire. Lidocaine was then infiltrated in a caudal-lateral direction, and ?? infiltrated over a 2.5 cm infraclavicular area for pocket creation. ?A ?? 2 cm incision was made and, with blunt dissection, a pocket created. Port was ?? attached to the catheter, placed into the pocket. A tunneler was then used to ?? bring the catheter through the tunnel to the venotomy site. Venotomy was ?? dilated to accommodate the peel-away sheath, and during breath-hold, the ?? catheter advanced. Sheath was removed. Port flushed and aspirated well. The ?? pocket was closed using a two layer technique with absorbable suture material ?? (2-0 vicryl deep interrupted and 4-0 monocryl running subcuticular). Skin ?? closed with indermil. Patient tolerated the procedure well. There were no ?? immediate complications. Port left accessed. ? MEDICATIONS: ?Fentanyl ?? 150 mcg IV ?Versed ?? 3 mg IV ?Ancef ?? 1 gram IV ?Contrast: ?? None ?EBL: ?? none ?Fluoro ?? time: 0.2 minutes. ? Procedure Note ForFrankie diggs MD - 11/15/2011 VIR PROCEDURE NOTE: Procedure: Placement of right IJ single lumen chest port (Dignity CT POWER PORT) ACC#: [id number]: Lymphoma, need access for chemotherapy TECHNIQUE: After discussingrisks (including infection, hemorrhage, occlusion), and benefits, patientconsented to the procedure and conscious sedation. A moment of truth was performedand the patient and procedure correctly identified. Due to the painfulnature of the procedure, split doses of fentanyl and Versed were administered bythe IR nurse during continuous monitoring of pulse, blood pressure and oxygen saturation. After maximal sterile barrier technique preparation ofthe right neck and upper chest, ultrasound was used to localize the right internal jugular vein. 1% lidocaine SQ was administered for anesthesia,and a 21 ga needle was advanced under ultrasound guidance into the IJ and a0.018 inch wire was advanced into SVC. A 4 Fr introducer sheath was placed andthe wire exchanged for a 0.035 inch wire. Lidocaine was then infiltrated nidia caudal-lateral direction, and infiltrated over a 2.5 cm infraclaviculararea for pocket creation. A 2 cm incision was made and, with bluntdissection, a pocket created. Port was attached to the catheter, placed into thepocket. A tunneler was then used to bring the catheter through the tunnel to the venotomy site. Venotomy was dilated to accommodate the peel-away sheath,and during breath-hold, the catheter advanced. Sheath was removed. Portflushed and aspirated well. The pocket was closed using a two layer techniquewith absorbable suture material (2-0 vicryl deep interrupted and 4-0 monocryl running subcuticular). Skin closed with indermil. Patient tolerated the procedure well. There were no immediate complications. Port leftaccessed. MEDICATIONS: Fentanyl 150 mcg IV Versed 3 mg IV Ancef 1gram IV Contrast: None EBL: none Fluoro time: 0.2 minutes. IMPRESSION IMPRESSION: US and fluoro guided placement single lumen right IJ DignityCT POWER port, catheter tip in cavoatrial junction Port ready for use. Procedure performed by Nimisha Gonasles PA-C Attending: ; {CR} ; {CR} ; {CR} ; {CR} ; {CR} Myron Cruz MD IMG IR ORDERABLES documented in this encounter Visit Diagnoses Diagnosis Hodgkin's lymphoma Hodgkin's disease, unspecified documented in this encounter Administered Medications Inactive Administered Medications - up to 3 most recent administrations Medication Order MAR Action Action Date Dose Rate Site ceFAZolin (ANCEF) 1g in dextrose 5% 50mL 1,000 mg (1 g), Intravenous, ONCE, 1 dose, On Fri11/15/11 at 0845, Administer over 30 Minutes, Angio/IR (Intra-Procedure), Indication for (Active or Suspected): Prophylaxis New Bag 11/15/2011 8:45 AM EDT 1,000 mg 100 mL/ hr fentaNYL 50mcg/mL injection 25-50 mcg, Intravenous, EVERY 5 MIN PRN, Starting on Fri11/15/11 at 0821, Until Fri11/15/11 at 0953, Pain, For sedation; per RN, Angio/IR (Intra-Procedure), Routine Given 11/15/2011 9:51 AM EDT 150 mcg midazolam (VERSED) injection 0.5-1 mg 0.5-1 mg, Intravenous, EVERY 5 MIN PRN, Starting on Fri11/15/11 at 0821, Until Fri11/15/11 at 0953, Sleep, For sedation; per nurse, Angio/IR (Intra-Procedure), Routine Given 11/15/2011 9:52 AM EDT 3 mg documented in this encounter Care Teams Hammer Smith Relationship Specialty Start Date End Date Arabella Villarreal MD [address] [place] [address] PCP - General 09/16/11 documented as of this encounter
--- OUTSIDE RECORDS SUMMARY | 2024-04-07 01:43 | XMS_ITS | Encounter Summary ---
[place] [address] Care Team Providers Care End Frazer Name Role Phone Arabella Villarreal MD Primary Care Provider [phone] Encounter Details Date Type Department Care Team (Late st Contact Info) Description 11/28/2011 9:30 AM EDT Office Visit [place]ology [place] [phone] Hodgkin's lymphoma (Primary Dx) Social History Tobacco [...] Notes * Olga Espinoza RN - 12/25/2011 7:11 PM EDT RESEARCH NURSE OFFICE NOTE CYCLE # 2 DAY # 15 (ABVD) 11/28/2011 [id number]: Phase II Trial of Response-Adapted Therapy Based on Positron Emission Tomography (PET) for 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 Evaluated by , please see his note for details. Please also see multiple telephone notes outlining interval history since 11/18/11. Chasity states that she feels generally well, with better energy levels after her last treatment. Also reports that her nausea was more persistent, but wasn't as intense after her last treatment. Continues to use scopolamine patch, ativan and Zantac prior to coming in for chemotherapy. Used compazine daily until last week, but did not use any zofran for nausea. Denies any vomiting. Continues to work with modifications to schedule as needed. States that she has had headaches daily recently, but only needs excedrin occasionally. Taking loratidine prn. Left forearm streak still present, although not bothersome currently. STUDY ASSESSMENTS COMPLETED CBC, CMP, Physical exam, AE assessment CHEMOTHERAPY I verified that the dose ordered is consistent with treatment plan per protocol. Dose calculation double-checked. Pt BSA- 2.06; doxorubicin orde red dose/m2 = 25 mg/m2 , total doxorubicin dose ordered = 52 mg; bleomycin ordered dose/m2 = 10 units/m2, total bleomycin dose ordered = 21 units; vinblastine ordered dose/m2 = 6 mg/m2, total vinblastine dose ordered = 12 mg; dacarbazine ordered dose/m2 = 375 mg/m2, total dacarbazine dose ordered = 770 mg. AE/SIDE EFFECT MONITORING # AE Grade [...] ongoing Fading redness noted EDUCATION PROVIDED Discussed plan for restaging visit, including need for labs, CT scans, and PET scan per protocol, as well as timeline for continuation of treatment after central radiology confirmation of scans. PLAN 1. Subject agrees to continue on study [id number] per protocol. 2. Next visit (restaging) to be scheduled for 12/06/11 to include: Labs, CT (chest, abdomen, pelvis,neck), PET scan, and AE assessment per protocol. Patient verbalizes understanding of, and [...] MID-THIGH Technique Procedure: Following IV injection of 75-uvpcze-4-deoxyglucose (FDG) and a standard uptake period, a [...] you for referring this patient to the [facility] PET Center Film and interpretation reviewed by the attending Procedure Note Rodrigo Lynn MD - 12/06/2011 Examination PET/CT SKULL BASE TO MID-THIGH Technique Procedure: Following IV injection of 36-chwncl-3-deoxyglucose (FDG) and a standard uptake period, a [...] you for referring this patient to the [facility] PET Center Film and interpretation reviewed by the attending Myron Cruz MD IMG PET ORDERABLES documented in this encounter Visit Diagnoses Diagnosis Hodgkin's lymphoma- Primary Hodgkin's disease, unspecified Hodgkin's lymphoma Hodgkin's disease, unspecified documented in this encounter Care Teams End Frazer Relationship Specialty Start Date End Date Arabella Villarreal MD [address] [place] [address] PCP - General 09/16/11 documented as of this encounter
--- OUTSIDE RECORDS SUMMARY | 2024-04-07 01:43 | XMS_ITS | Encounter Summary ---
Author Organization [facility] [place] [address] Care Team Providers Care Solar Tech Name Role Phone Arabella Villarreal MD Primary Care Provider [phone] Encounter Details Date Type Department Care Team (Late st Contact Info) Description 11/12/2011 Notes Only Hematology Oncology at [address] [phone] Myron Cruz MD [facility] DR [place] [address] Social History Tobacco Use Types Packs/Day Years Used Date Smoking Tobacco: Never Smokeless Tobacco: Never Alcohol Use Standard Drinks/Week Comments No 0 (1 standard drink = 0.6 oz pur e alcohol) Sex and Gender Information Value Date Recorded Sex Assigned at Not on file Gender Identity Not on file Sexual Orientation Not on file documented as of this encounter Progress Notes * Marlen Durham RN - 11/12/2011 9:29 AM EDT Chasity stopped into clinic this morning to have her right forearm assessed after starting keflex on 11/09/11 for infection at PIV site used on 10/31/11 for Cycle 1, Day 15 ABVD (Protocol: [id number]). No obvious redness noted at this point. She does have faint bruising at insertion site and now what looks very faint bruising extending proximal from insertion site to antecubital (this is area that Chasity reports was previously red in color). She continues to report some tenderness along this area andcord is mildly palpable. No warmth or swelling noted. Note forwarded to Dr. Cruz and Bernice Espinoza RN. documented in this encounter Plan of Treatment Not on file documented as of this encounter Visit Diagnoses Not on filedocumented in this encounter Care Teams Solar Tech Relationship Specialty Start Date End Date Arabella Villarreal MD [address] [place] [address] PCP - General 09/16/11 documented as of this encounter
--- OUTSIDE RECORDS SUMMARY | 2024-04-07 01:43 | XMS_ITS | Encounter Summary ---
[place] [address] Care Team Providers Care Punch Press Operator Helper Name Role Phone Arabella Villarreal MD Primary Care Provider Encounter Details Date Type Department Care Team (Late st Contact Info) Description 12/06/2011 10:05 AM EDT Clinical Support [facility] [place] [phone] Social History Tobacco Use Types Packs/Day Years [...] on filedocumented in this encounter Care Teams Punch Press Operator Helper Relationship Specialty Start Date End Date Arabella Villarreal MD [address] [place], [place] [id number] PCP - General 09/16/11 documented as of this encounter
--- OUTSIDE RECORDS SUMMARY | 2024-04-07 01:43 | XMS_ITS | Encounter Summary ---
Author Organization [facility] [place] [address] Care Team Providers Care Trust Clerk Name Role Phone John Villarreal MD Primary Care Provider [phone] Reason for Visit * Reason Comments Follow-up Chemotherapy Encounter Details Date Type Department Care Team (Late st Contact Info) Description 12/12/2011 1:00 PM EDT Follow-Up [place]ematology [place] [address] Myron Cruz MD [facility] [address] [place] [address] Hodgkin's lymphoma (Primary Dx) Discharge Disposition: Home [...] Sign Reading Time Taken Comments Blood Pressure 119/73 12/12/2011 12:49 PM EDT Pulse 70 12/12/2011 12:49 PM EDT Temperature 36.7 ??C (98.1 ??F) 12/12/2011 12:49 PM E DT Respiratory Rate 16 12/12/2011 12:49 PM EDT Oxygen Saturation 100% 12/12/2011 12:49 PM EDT Inhaled Oxygen Concentration - - Weight 91.2 kg (201 lb 1 oz) 12/12/2011 12:49 PM EDT Height 168 cm (5' 6.14) 12/12/2011 12:49 PM EDT Body Mass Index 32.31 12/12/2011 12:49 PM EDT documented in this encounter Progress Notes * Myron Cruz MD - 12/12/2011 1:27 PM EDT HEMATOLOGY FOLLOW UP NOTE Chasity [...] Gastroesophageal Reflux ? ? vitamin 27 & [id number] 60 mg iron-1 mg tablet Take 1 [...] Dose: 1 mgat 11/28/11 1400 Interim History: Chasity Gallo is here for C3D1 ABVD on clincal trial. +mouth sore, has been bleeding. Put on scopalamine patch this AM. Still working. Denies CP, SOB, GIBSON. Denies neuropathy. Still complains of headaches--did not respond well to excedrin. Review of Systems: Hematological and Lymphatic ROS: negative Energy level: good Pain: left arm Appetite: returned to baseline Fevers/chills/sweats: No Bruising/bleeding/melena: No Recent infections: none Nausea/vomiting/diarrhea/constipation: none SOB/GIBSON/chest pain: No Change in adenopathy or other masses: No Unexpected weight loss or gain: No Skin rashes or petechiae: None present Other systems: No additional positive findings A 12-pt review of systems was performed and was otherwise negative except for above. Physical Exam: BP 119/73 Pulse 70 Temp(Src) 36.7 ??C (98.1 ??F) (Oral) Resp 16 Ht 168 cm (5' 6.14) Wt 91.2 kg (201 lb 1 oz) BMI 32.31 kg/m2 SpO2 100% Gen: well appearing, well [...] (WITH DIFF) Component Value Range ??? WBC 2.4 (*) 4.0 - 10.0 (x10(3)/mcL) ??? RBC 3.94 3.93 - 5.22 (x10(6)/mcL) ??? Hemoglobin 11.2 11.2 - 15.7 (gm/dL) ??? Hematocrit 33.9 (*) 34.0 - 45.0 (%) ??? MCV 86.0 79.0 - 94.0 (fL) ??? MCH 28.4 26.6 - 32.2 (pg) ??? MCHC 33.0 32.0 - 36.5 (gm/dL) ??? Platelets 319 145 - 370 (x10(3)/mcL) ??? RDWSD 46.8 (*) 35.0 - 46.0 (fL) ??? RDWCV 15.1 (*) 10.9 - 14.4 (%) ??? MPV 8.7 (*) 9.0 - 12.0 (fL) COMPREHENSIVE METABOLIC PANEL (NON-FASTING) Component Value Range ??? Glucose Lvl 90 60 - 199 (mg/dL) ??? BUN 11 8 - 18 (mg/dL) ??? Creatinine 0.68 (*) 0.70 - 1.20 (mg/dL) ??? Sodium 139 135 - 145 (mmol/L) ??? Potassium 3.9 3.5 - 5.0 (mmol/L) ??? Chloride 107 98 - 107 (mmol/L) ??? CO2 24 22 - 31 (mmol/L) ??? Anion Gap 8 5 - 15 (mmol/L) ??? Calcium 8.9 8.5 - 10.5 (mg/dL) ??? Total Protein 6.5 6.4 - 8.3 (gm/dL) ??? Albumin 4.3 3.2 - 5.2 (gm/dL) ??? AST 11 0 - 30 (unit/L) ??? ALT 9 0 - 30 (unit/L) ??? Alk Phos 41 40 - 104 (unit/L) ??? Total Bilirubin 0.2 0.2 - 1.3 (mg/dL) ? ? Bili, Direct <0.1 0.0 - 0.3 (mg/dL) ? ? Estimated GFR >60 >=60 DIFFERENTIAL, AUTOMATED Component Value Range ??? Neutrophils % 39.7 34.0 - 71.0 (%) ??? Neutr Abs (ANC) 0.95 (*) 1.50 - 6.30 (x10(3)/mcL) ??? Lymphocytes % 40.2 19.0 - 53.0 (%) ??? Lymphocytes Abs 1.0 1.0 - 3.6 (x10(3)/mcL) ??? Monocytes % 15.1 (*) 4.0 - 13.0 (%) ??? Monocyte Abs 0.4 0.2 - 1.0 (x10(3)/mcL) ??? Eosinophils % 2.9 0.0 - 7.0 (%) ??? Eosinophils Abs 0.1 0.0 - 0.5 (x10(3)/mcL) ??? Basophils % 2.1 (*) 0.0 - 2.0 (%) ??? Basophils Abs 0.0 0.0 - 0.2 (x10(3)/mcL) ??? Immature Gran % 0.00 0.00 - 0.66 (%) ??? Maryann Gran Abs 0.00 0.00 - 0.05 (x10(3)/mcL) Radiographic: I reviewed PET at last visit. PET2 negative Assessment/Plan (by problem) Stage IIA HL, ABVD on study PET2 negative central review -Continue C3D1 ABVD today on [id number] as scheduled today. -As in prior cycles, will give Aloxi and Emend today and continue with scopolamine patch changing it in 48 hours to cover through day 7 for delayed nausea. Use Compazine for breakthrough nausea at 10mg which may provide clinical benefit without excessive sedation. Ativan for stress, insomnia. Can try for ativan for headache. Zofran PRN (she choose to use as last resort, due to headache). May try aromatherapy, continue massage. --Patient was counseled about neutropenic precautions. OK to take time off from work. --RTC in 2 weeks for Day 15 Total time spent with patient: 25 minutes Time spent in counseling and coordination of care: 20 minutes Myron Cruz MD Public Service Directordirector of strategic sales Section of Hematology/Oncology [facility] Cc: JOHN VILLARREAL MD documented in this encounter Plan of Treatment Not on file documented as of this encounter Visit Diagnoses Diagnosis Hodgkin's lymphoma- Primary Hodgkin's disease, unspecified documented in this encounter Care Teams Trust Clerk Relationship Specialty Start Date End Date John Villarreal MD [address] [place] [address] PCP - General 09/16/11 documented as of this encounter
--- OUTSIDE RECORDS SUMMARY | 2024-04-07 01:43 | XMS_ITS | Encounter Summary ---
[place] [address] Care Team Providers Care Auto Body Repairer Name Role Phone Arabella Villarreal MD Primary Care Provider [phone] Reason for Visit * Reason Comments Chemotherapy Encounter Details Date Type Department Care Team (Latest Contact Info) Description 10/31/2011 10:24 AM EDT - 10/31/2011 11:59 PM EDT Hospital Encounter Hematology [place] [address] Hodgkin's lymphoma Social History Tobacco Use Types [...] Indications: Cold sores prochlorperazine (COMPAZINE) 5 mg tabletIndications:H odgkin's lymphoma Take 2 tablets by mouth every 6 hours as needed for Nausea. 30 tablet 1 10/22/2011 11/07/2011 scopolamine (TRANSDERM-SCOP) 1.5 mgIndications:Hodgk in's lymphoma Place 1 patch onto the skin every 72 hours. Use as needed for nausea not relieved by Zofran or Compazine. 10 patch 12 10/22/2011 07/24/2012 BACILLUS COAGULANS-INULIN ORAL Take by mouth daily. 012 ondansetron (ZOFRAN) 4 mg tabletIndications:H odgkin's lymphoma Take 2 tablets by mouth every 8 hours as needed for Nausea. 20 tablet 0 10/16/2011 01/24/2012 LORazepam (ATIVAN) 0.5 mg tabletIndications:H odgkin's lymphoma Take 1 tablet by mouth every 6 hours as needed (Nausea). 30 tablet 0 10/16/2011 11/13/2011 OXYcodone (ROXICODONE) 5 mg immediate release tablet Take 1-2 tablets by mouth every 4 hours as needed for Pain. 15 tablet 0 09/25/2011 11/15/2011 acetaminophen (TYLENOL) 500 mg tablet Take 1,000 mg by mouth every 6 hours as needed. 012 ferrous gluconate 325 mg (37.5 mg iron) tablet Take 325 mg by mouth daily (with breakfast). 02/20/20 12 ranitidine (ZANTAC) 150 mg tabletIndications:g astroesophageal reflux disease Take 150 mg by mouth daily as needed. Indications: Gastroesophageal Reflux 04/02/19 23 vitamin 27 & [id number]-RZ 60 mg iron-1 mg tablet Take 1 tablet by mouth daily. 04/02/2022 documented as of this encounter Progress Notes * January Duarte RN - 10/31/2011 1:27 PM EDT Patient Name: Chasity Gallo Patient Age: 31 y.o. Birthdate: 1980 Admit date: 10/31/2011 Attending Physician: Shanti bingham. providers found TIME TREATMENT STARTED: 1250 TIME TREATMENT ENDED: 1640 Chasity Gallo, 31 y.o. female with diagnosis of Hodgkin Lympoma is here for chemotherapy infusionof ABVD. PROTOCOL: [id number] CYCLE: 1 DAY: 15 S: Pt. offers no complaints at this time. O: Patient's Chemotherapy orders independently verified for correct drug name, route and dosage perpatient's height, weight and BSA by Del, ISABEL and Lillian, RN. REACTIONS (DESCRIPTION, TIME, INTERVENTION AND EFFECTIVENESS) None noted. A: Pt. Tolerated treatment well. Chasity Gallo [...] mg, Oral, ONCE, 1 dose, On Marleny 10/31/11 at 1315, Maximum dose of acetaminophen is 4000 mg from all sources in 24 hours., Routine Given 10/31/2011 1:10 PM EDT 650 mg bleomycin (BLEOCIN) 21 Units in sodium chloride 0.9% 57 mL chemo infusion 21 Units, Intravenous, ONCE, 1 dose, On Marleny 10/31/11 at 1245, Administer over 30 Minutes, 1 unit = 1 mg New Bag 10/31/2011 2:55 PM EDT 21 Units 114 mL/hr dacarbazine (DTIC) 775 mg in dextrose 5% 327.5 mL chemo infusion 775 mg, Intravenous, ONCE, 1 dose, On Marleny 10/31/11 at 1245, Administer over 30 Minutes New Bag 10/31/2011 3:50 PM EDT 775 mg 655 mL/hr DOXOrubicin (ADRIAMYCIN) chemo injection 52 mg 52 mg, Intravenous, ONCE, 1 dose, On Marleny 10/31/11 at 1245, Administer over 5 Minutes, Vesicant/irritant. Avoid extravasation Given 10/31/2011 2:45 PM EDT 52 mg 312 mL/hr fosaprepitant (EMEND) 150 mg in sodium chloride 0.9% 155 mL infusion 150 mg, Intravenous, ONCE, 1 dose, On Marleny 10/31/11 at 1315, Administer over 30 Minutes New Bag 10/31/2011 1:35 PM EDT 150 mg 310 mL/hr hydrocortisone sodium succinate (PF) (SOLU-CORTEF) injection 100 mg 100 mg, Intravenous, ONCE, 1 dose, On Marleny 10/31/11 at 1315 Given 10/31/2011 1:15 PM EDT 100 mg palonosetron (ALOXI) injection 0.25 mg 0.25 mg, Intravenous, ONCE, 1 dose, On Marleny 10/31/11 at 1315, Routine Given 10/31/2011 1:12 PM EDT 0.25 mg vinBLAStine (VELBAN) chemo injection 13 mg 13 mg, Intravenous, ONCE, 1 dose, On Marleny 10/31/11 at 1245, Administer over 5 Minutes, FOR IV USE ONLY. FATAL IF GIVEN BY OTHER ROUTES. Vesicant/irritant Avoid extravasation Given 10/31/2011 2:50 PM EDT 13 mg 156 mL/hr documented in this encounter Care Teams Auto Body Repairer Relationship Specialty Start Date End Date Arabella Villarreal MD [address] [place] [address] PCP - General 09/16/11 documented as of this encounter
--- OUTSIDE RECORDS SUMMARY | 2024-04-07 01:43 | XMS_ITS | Encounter Summary ---
Author Organization [facility] [address] Care Team Providers Care Computing Machine Operator Name Role Phone Arabella Villarreal MD Primary Care Provider [phone] Encounter Details Date Type Department Care Team (Late st Contact Info) Description 11/07/2011 Telephone Hematology [place] [phone] Myron Cruz MD [facility] DR HEMATOLOGY [place] [address] Social History Tobacco Use Types Packs/Day Years [...] Telephone Encounter - Olga Espinoza RN - 11/07/2011 4:18 PM EDT RESEARCH NURSE TELEPHONE NOTE [id number]: Phase II Trial of Response-Adapted Therapy Based on Positron Emission Tomography (PET) for 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 Describes nausea as so severe that she could not tolerate noise of any kind, and therefore spent very little time out of bed until Friday11/04/11. Nonetheless, Chasity reports that she bounced back more fully/quicker and returned to work on Friday of this week. Denies any dry heaving or vomiting. Nausea has been mild in the morning only over the past few days, for which she has taken Compazine with good effect. She did not take any nausea medications today. Continues to use Ativan at night, although she is also experiencing insom peterson where she feels tired, but my brain won't turn off. Endorses fatigue, especially yesterday and today. Denies any further tingling sensations or mouth sores. When asked, Chasity states that she is not constipated, but doesn't feel as though her bowels are fully evacuating. Plans to try Colace to help with this. Chasity has also noticed scalp sensitivity as well as her hair thinning/falling out since this treatment. Reports that facial skin is breaking out with red, tender bumps, mostly at the sides of herchin and mouth. Denies fevers or other s/s of infection. Education Provided: Chasity states that she thinks her nausea is exacerbated by having to drive 1 hour home after chemo, but still prefers to receive care here as opposed to in [facility]. Reports that she is prone to car-sickness. Discussed possible changes to anti-emetics including steroids, marinol, eliminating Aloxi and using Zofran upfront. Reports that she feels scopolamine patch is helping, but needs to change something for the next cycle. Advised Chasity to use gentle soap (such as Dove or Cetaphil) on her facewhile irritated. Plan: 1. Pt will continue on study [id number] per protocol. 2. Next visit (C2D1) scheduled for 11/14/11 to include: Labs, MD visit, and ABVD infusion per protocol. 3. Refill of compazine to be sent to pharmacy per patient request. Dr. Cruz and Cyndy Alfaro APRN made aware. Patient verbalizes understanding of, and agreementwith, plan. Advised to contact this office for any questions/concerns, as well as for any new or worsening symptoms. documented in this encounter Plan of Treatment Not on file documented as of this encounter Visit Diagnoses Diagnosis Hodgkin's lymphoma- Primary Hodgkin's disease, unspecified documented in this encounter Care Teams Computing Machine Operator Relationship Specialty Start Date End Date Arabella Villarreal MD [address] [place] [address] PCP - General 09/16/11 documented as of this encounter
--- OUTSIDE RECORDS SUMMARY | 2024-04-07 01:43 | XMS_ITS | Encounter Summary ---
Author Organization [facility] [place] [address] Care Team Providers Care Data Reviewer Name Role Phone Arabella Villarreal MD Primary Care Provider [phone] Encounter Details Date Type Department Care Team (Late st Contact Info) Description 10/28/2011 Telephone Hematology [place] [phone] Myron Cruz MD [facility] DR HEMATOLOGY [place] [address] Social History Tobacco Use Types Packs/Day Years [...] Telephone Encounter - Olga Espinoza RN - 10/28/2011 4:09 PM EDT RESEARCH NURSE TELEPHONE NOTE [id number]: Phase II Trial of Response-Adapted Therapy Based on Positron Emission Tomography (PET) for 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 Cruz, I called to follow-up with Chasity in regards to her symptoms ofheadache this past weekend. No answer on home or cell phone numbers. Message left on name/voice-identified cell phone voicemail requesting that Chasity return my call at her convenience. 1550: Spoke with Chasity, who was returning my call from this afternoon. Chasity states that she feels pretty good, although she has required Excedrin every day since we spoke on 10/25/11. Called and spoke to on-call fellow on Friday morning due to headache, which Chasity believes was so painful because I was sleeping and didn't take Excedrin right away. Headache yesterday and today have been mild and well-managed on Excedrin per pt. report. Denies heartburn. States that her energy is alot better since I haven't used Compazine. Chasity states that her nausea has been well-controlled; continues to use Zofran to prevent nausea twice daily and Ativan prior to bed each night. Chasity also reports that her young daughter was very sick this weekend with a runny nose, fever, and single episode of emesis. Chasity remains afebrile, without worrisome symptoms and is monitoring her temperature frequently. Education Provided: Encouraged Chasity to stop prophylactic Zofran, as she should not need anti- emetics at this point in the cycle, and instructed her to take compazine prn for nausea. Ok to continue Ativan at bedtime for nausea/sleep as needed. Discussed plan to place scopolamine patch and take 0.5 mg Ativan prior tocoming to hospital on . Plan: 1. Pt will continue on study [id number] per protocol. 2. Next visit (C1D15) scheduled for 10/31/11 to include: Labs, MD visit, and ABVD infusion per protocol. Dr. Cruz made aware. Patient verbalizes understanding of, and agreement with, plan. Advised to contact this office for any questions/concerns, as well as for any new or worsening symptoms. documented in this encounter Plan of Treatment Not on file documented as of this encounter Visit Diagnoses Not on filedocumented in this encounter Care Teams Data Reviewer Relationship Specialty Start Date End Date Arabella Villarreal MD [address] [place] [address] PCP - General 09/16/11 documented as of this encounter
--- OUTSIDE RECORDS SUMMARY | 2024-04-07 01:43 | XMS_ITS | Encounter Summary ---
[place] [address] Care Team Providers Care Biodiesel Plant Manager Name Role Phone Arabella Villarreal MD Primary Care Provider [phone] Encounter Details Date Type Department Care Team (Latest Contact Info) Description 12/06/2011 9:17 AM EDT - 12/06/2011 12:56 PM EDT Hospital [place] [address] Hodgkin's lymphoma Social History Tobacco Use Types [...] dgkin's disease Apply topically. Apply liberally to [facility] site 30-60 minutes prior to lab [...] Gastroesophageal Reflux 04/02/19 23 vitamin 27 & [id number]-MP 60 mg iron-1 mg tablet Take 1 tablet by mouth daily. 04/02/2022 documented as of this encounter Plan of Treatment Not on file documented as of this encounter Procedures Procedure Name Priority Date/Time Associated Diagnosis Comments CT NECK SOFT TISSUE W CONTRAST Routine 12/06/2011 12:12 PM EDT Hodgkin's disease, unspecified documented in this encounter Results * CT NECK SOFT TISSUE WITH CONTRAST (12/06/2011 12:12 PM EDT) Anatomical Region Laterality Modality Neck, Head Computed Tomogra phy 12/06/2011 12:1 2 PM EDT Narrative 12/09/2011 8:[address] Neck With Contrast Clinical History Hodgkin's lymphoma restaging ?? s/p 2 cycles of ABVD chemotherapy Comparison PET-CT dated 12/06/[address] of the neck dated 10/10/2011. Technique Helically acquired CT images of the neck obtained during the intravenous administration of 110 mL of Omnipaque 350. ?? Findings There has been interval decrease in size of the centrally necrotic right supraclavicular lymph node, now measuring 2.2 x 2.8 cm. The previously noted left retroclavicular node is not seen on today's exam. Bilateral level 1 and 2 cervical nodes are not pathologic by size criteria, ??however, have demonstrated interval growth; A left level 1b node measuring 13 x 9 mm (previously 9 x 5 mm) and a left level IIa node measuring 7 x 11 mm (previously 5 x 9 mm) which do not demonstrate increased metabolic uptake on the PET scan. The nasopharynx, oropharynx and hypopharynx are otherwise normal. ?? Impression Interval decrease in size of indicator nodes, however, there has been interval growth of bilateral level I and II cervical nodes, not pathologic by size criteria, as described above. Attention on follow-up imaging is recommended. ?? Film and interpretation reviewed by the attending Procedure Note Santiago Xiong MD - 12/09/[address] Neck With Contrast Clinical History Hodgkin's lymphoma restaging s/p 2 cycles of ABVD chemotherapy Comparison PET-CT dated 12/06/[address] of the neck dated 10/10/2011. Technique Helically acquired CT images of the neck obtained during the intravenous administration of 110 mL of Omnipaque 350. Findings There has been interval decrease in size of the centrally necrotic right supraclavicular lymph node, now measuring 2.2 x 2.8 cm. The previouslynoted left retroclavicular node is not seen on today's exam. Bilateral level 1and 2 cervical nodes are not pathologic by size criteria, however, havedemonstrated interval growth; A left level 1b node measuring 13 x 9 mm (previously 9 x5 mm) and a left level IIa node measuring 7 x 11 mm (previously 5 x 9 mm) whichdo not demonstrate increased metabolic uptake on the PET scan. Thenasopharynx, oropharynx and hypopharynx are otherwise normal. Impression Interval decrease in size of indicator nodes, however, there has beeninterval growth of bilateral level I and II cervical nodes, not pathologic by size criteria, as described above. Attention on follow-up imaging isrecommended. Film and interpretation reviewed by the attending Myron Cruz MD IMG CT ORDERABLES documented in this encounter Visit Diagnoses Diagnosis Hodgkin's lymphoma Hodgkin's disease, unspecified documented in this encounter Care Teams Biodiesel Plant Manager Relationship Specialty Start Date End Date Arabella Villarreal MD [address] [place] [address] PCP - General 09/16/11 documented as of this encounter
--- OUTSIDE RECORDS SUMMARY | 2024-04-07 01:43 | XMS_ITS | Encounter Summary ---
Author Organization [facility] [place] [address] Care Team Providers Care R Programmer Name Role Phone Arabella Villarreal MD Primary Care Provider [phone] Encounter Details Date Type Department Care Team (Late st Contact Info) Description 11/15/2011 External Results [place] [phone] Myron Cruz MD [facility] DR HEMATOLOGY [place] [address] Hodgkin's lymphoma (Primary Dx) Social History Tobacco [...] unspecified documented in this encounter Care Teams R Programmer Relationship Specialty Start Date End Date Arabella Villarreal MD [address] [place] [address] PCP - General 09/16/11 documented as of this encounter
--- OUTSIDE RECORDS SUMMARY | 2024-04-07 01:43 | XMS_ITS | Encounter Summary ---
Author Organization [place] [address] Care Team Providers Care Phlebotomy Coordinator Name Role Phone Arabella Villarreal MD Primary Care Provider [phone] Encounter Details Date Type Department Care Team (Late st Contact Info) Description 10/26/2011 Telephone Hematology [place] [phone] Jamilah Byers MD [facility] DR HEMATOLOGY/[place] [address] Social History Tobacco Use Types Packs/Day Years [...] Telephone Encounter - Myron Cruz MD - 10/28/2011 3:12 PM EDT Please see fellow's phone note. Please f/u with Chasity. * Telephone Encounter - Jamilah Byers - 10/26/2011 9:26 AM EDT Called by pt reporting headache since 4:30 this morning. She received ABVD on 10/16. She states thatit is the same type of headache she gets when she takes zofran. She took excedrin at 5:30 and the headache is better (8/10->5/10) but she wonders if there is anything else she can take. She deniesfever, chills, vomiting, visual changes, bleeding, bruising. I recommended she avois zofran today, and to take 1g tylenol now, then excedrin in 2 hours (6 hrs vrom first dose), and see if this helps.I told her that if her headache worsens, or if she develops fever, vomiting or visual changes she should report to her nearest ED. documented in this encounter Plan of Treatment Not on file documented as of this encounter Visit Diagnoses Not on filedocumented in this encounter Care Teams Phlebotomy Coordinator Relationship Specialty Start Date End Date Arabella Villarreal MD [address] [place] [address] PCP - General 09/16/11 documented as of this encounter
--- OUTSIDE RECORDS SUMMARY | 2024-04-07 01:43 | XMS_ITS | Encounter Summary ---
Author Organization [facility] Address [facility] [place] [address] Care Team Providers Care Tool Procurement Coordinator Name Role Phone Arabella Villarreal MD Primary Care Provider [phone] Encounter Details Date Type Department Care Team (Latest Contact Info) Description 12/06/2011 12:57 PM EDT - 12/06/2011 11:59 PM EDT Hospital Encounter H[place]ology [place] [address] Myron Cruz MD [facility] DR HEMATOLOGY [place] [address] Hodgkin's lymphoma Discharge Disposition: Home Social History [...] dgkin's disease Apply topically. Apply liberally to [facility] site 30-60 minutes prior to lab [...] Gastroesophageal Reflux 04/02/19 23 vitamin 27 & gtlsoak-hymo-MQ 60 mg iron-1 mg tablet Take 1 tablet by mouth daily. 04/02/2022 documented as of this encounter Plan of Treatment Scheduled Orders Name Type Priority Associated Diagnoses Orde r Schedule Miscellaneous Lab request Lab Routine Hodgkin's lymphoma 1 Occurrences starting 12/06/2011 documented as of this encounter Visit Diagnoses Diagnosis Hodgkin's lymphoma Hodgkin's disease, unspecified documented in this encounter Care Teams Tool Procurement Coordinator Relationship Specialty Start Date End Date Arabella Villarreal MD [address] [place] [address] PCP - General 09/16/11 documented as of this encounter
--- OUTSIDE RECORDS SUMMARY | 2024-04-07 01:43 | XMS_ITS | Encounter Summary ---
Author Organization [facility] [place] [address] Care Team Providers Care Anesthesiology Resident Name Role Phone Arabella Villarreal MD Primary Care Provider [phone] Reason for Visit * Reason Onset Date Comments Rash 11/09/2011 Encounter Details Date Type Department Care Team (Late st Contact Info) Description 11/09/2011 Telephone Hematology [place] [phone] Darwin Garcia MD [facility] DR HEMATOLOGY/[place] [address] Rash Social History Tobacco Use Types Packs/Day Years [...] encounter Miscellaneous Notes * Telephone Encounter - Darwin Garcia - 11/09/2011 7:48 AM EDT Chasity calls stating that since last night she has developed about 3-4 inches of redness from the mid left forearm extending to the elbow. It is slightly warm, but the area is tender and has been sosince he IV was placed there at her last chemo 10/30. She has no fever, chills, rashes elsewhere, nor any discharge such as pus noted from the iv site here. I prescribed Keflex and instructed her to call us should, while on abx, the rash continue to worsen, should she have fever or chills, should the arm become swollen or there be any discharge from this area or increasing tenderness. documented in this encounter Plan of Treatment Not on file documented as of this encounter Visit Diagnoses Not on filedocumented in this encounter Care Teams Anesthesiology Resident Relationship Specialty Start Date End Date Arabella Villarreal MD [address] [place] [address] PCP - General 09/16/11 documented as of this encounter
--- OUTSIDE RECORDS SUMMARY | 2024-04-07 01:43 | XMS_ITS | Encounter Summary ---
Author Organization [facility] [place] [address] Care Team Providers Care Custom Studio Coordinator Name Role Phone Arabella Villarreal MD Primary Care Provider [phone] Encounter Details Date Type Department Care Team (Late st Contact Info) Description 12/25/2011 Telephone Hematology [place] [phone] Myron Cruz MD [facility] DR [place] [address] Social History Tobacco Use Types Packs/Day Years [...] encounter Miscellaneous Notes * Telephone Encounter - Any Espinoza RN - 12/25/2011 7:43 PM EDTAddended by: ANY ESPINOZA on: 12/25/2011 Modules accepted: Orders * Telephone Encounter - Any Espinoza RN - 12/25/2011 3:55 PM EDT RESEARCH NURSE TELEPHONE NOTE [id number]: Phase II Trial of Response-Adapted Therapy Based on Positron Emission Tomography (PET) for Bulky Stage I and Stage II Classical Hodgkin Lymphoma (HL) Date: 12/25/2011 Reason for call: Follow-up (home) 0945: Received page from Dr. Cruz requesting that I follow-up with PCP regarding need for duplex UE. Return call placed to Dr. Anamika Meraz at [facility] ([phone]) per request. Spoke with Dr. Meraz, who states that she is concerned about patient having a clot, sent Chasity for stat doppler in [facility]. Dr. Meraz states that she has instructed patient to use warm compresses to affected area and restart Keflex until she is able to discuss results with Dr. Cruz. Dr. Cruz paged with request to call Dr. Meraz directly this afternoon. 1400: Discussed with Dr. Cruz, who requests repeat doppler study to tomorrow @ [facility] to confirm findings from today. Orders placed per request. 1530: Spoke w/ Chasity who stated that her left arm is still sore. Reports that she was told she has a subcutaneous clot in the affected area on her left arm. Has not yet begun Keflex. Chasity states that she tried warm compresses last evening, but they didn't seem to help. She is not currently taking anything for pain, but does not feel as though she needs pain medication at this time, as the discomfort is tolerable and intermittent. Discussed Dr. Cruz's request to repeat doppler, to which Chasity is agreeable so long as it does not postpone her chemotherapy treatment tomorrow. Dopplerscheduled for 11:30am. Other appointments rearranged so that she will have labs at 9 am, see LAUNDRY PRESS OPERATOR at 10 am, and infusion at 12 noon. Patient verbalizes understanding of, and agreement with, plan. documented in this encounter Plan of Treatment Not on file documented as of this encounter Results * (ABNORMAL) CBC (with Diff) (01/24/2012 10:03 [...] Lab Myron Cruz MD [facility]EMATOLOGY [facility]AB [facility] * (ABNORMAL) Comprehensive metabolic panel (non-fasting) (01/09/2012 10:05 AM EST) Pathologist [facility] Glucose 89 60 - 199 mg/dL CERNER MILLENNIUM Comment:Diabetes: >=200 mg/d L plus symptoms Blood Urea Nitrogen 13 8 - 18 mg/dL CERNER MILLENNIUM Creatinine 0.66(L) 0.70 - 1.20 mg/dL CERNER MILLENNIUM Comment: Please note that the pediatric reference intervals supplied above were not validated at [facility]. Results from pediatric patients should be interpreted [...] Lab Myron Cruz MD [facility]ABL [facility] * (ABNORMAL) CBC (with Diff) (01/09/2012 10:05 [...] of variation 14.8(H) 10.9 - 14.4 % CERAZEB MILLENNIUM Mean Platelet Volume 9.2 9.0 - 12.0 fL CERAZEB MILLENNIUM Blood specimen (specimen) 01/09/2012 10:05 AM EST 01/09/2012 10:23 AM EST Narrative Resulting Agency Comment Spec In Lab Myron Cruz MD HEMATOLOGY ORDERAB LES [facility] * Duplex for DVT, Arm, Unilat (12/26/2011 11:33 AM EDT) VB Text Report Department: Vascular Surgery Lab Patient: [id number] (CHASITY PEREZ) CPT Code: 72538 ICD-9: 451.82 Referring Physician: MYRON CRUZ Indication: [...] Report VASCUBASE 12/26/2011 11:3 3 AM EDT Myron Cruz MD VASCULAR ORDERABLE S VASCUBASE * (ABNORMAL) CBC (with Diff) (12/26/2011 9:25 AM EDT) White Blood Cell 1.6(Criti mario) 4.0 - 10.0 x10(3)/mc L [facility] Red Blood Cell 3.76(L) 3.93 - 5.22 [...] unspecified documented in this encounter Care Teams Custom Studio Coordinator Relationship Specialty Start Date End Date Arabella Villarreal MD [address] [place] [address] PCP - General 09/16/11 documented as of this encounter
--- OUTSIDE RECORDS SUMMARY | 2024-04-07 01:43 | XMS_ITS | Encounter Summary ---
Author Organization [facility] [place] [address] Care Team Providers Care Fish Hatchery Inspector Name Role Phone Arabella Villarreal MD Primary Care Provider [phone] Encounter Details Date Type Department Care Team (Late st Contact Info) Description 12/12/2011 External Results Hematology [place] [address] Myron Cruz MD [facility] [address] [place] [address] Social History Tobacco Use Types Packs/Day Years [...] on filedocumented in this encounter Care Teams Fish Hatchery Inspector Relationship Specialty Start Date End Date Arabella Villarreal MD [address] [place], [place] [id number] PCP - General 09/16/11 documented as of this encounter
--- OUTSIDE RECORDS SUMMARY | 2024-04-07 01:43 | XMS_ITS | Encounter Summary ---
Author Organization [facility] [place] [address] Care Team Providers Care Electronics Mechanic Name Role Phone Arabella Villarreal MD Primary Care Provider [phone] Encounter Details Date Type Department Care Team (Late st Contact Info) Description 12/24/2011 Telephone Hematology [place] [phone] Myron Cruz MD [facility] DR [place] [address] Social History Tobacco Use Types Packs/Day Years [...] Telephone Encounter - Olga Espinoza RN - 12/25/2011 9:38 AM EDT RESEARCH NURSE TELEPHONE NOTE [id number]: Phase II Trial of Response-Adapted Therapy Based on Positron Emission Tomography (PET) for Bulky Stage I and Stage II Classical Hodgkin Lymphoma (HL) Date: 12/24/2011 Time: 4:30 PM Study Day: C3D13 Reason for call: Advice only (home) Received phone call from Chasity, who stated that her left forearm area is reddened and very tender, with a palpable lump/bunch under the skin. She just noticed the discomfort and redness this afternoon, stating the phlebitis seems to be back. Denies any break in skin, drainage, swelling or change in sensation (numbness/tingling) to left hand or upper extremity. Rings do not feel tight on left hand. Denies shortness of breath, chest pain/pressure, or other concerning symptoms. Patient denies problems with mediport site; states that her & her have recently noticed white spot in the very center where the needle goes in. Chasity reports that she has been waking up in the morning with her right hand feeling swollen, butbelieves that this is due to her menstrual cycle. Also states that she was quite lightheaded for a number of days after her last chemotherapy cycle, which has since resolved. Education Provided: Encouraged Chasity to use warm compresses/soaks this evening to affected area to help with discomfort and swelling. Chasity agrees to call this office if no better in the AM, or call PCP for evaluation. Encouraged Chasity to present immediately to nearest ER for any shortness of breath, chest pain/pressure, or worsening of symptoms this evening. Plan: 1. Pt will continue on study [id number] per protocol. 2. Next visit (C3D15) scheduled for 12/26/11. Dr. Cruz made aware. Patient verbalizes understanding of, and agreement with, plan. Advised to contact this office for any questions/concerns, as well as for any new or worsening symptoms. documented in this encounter Plan of Treatment Not on file documented as of this encounter Visit Diagnoses Not on filedocumented in this encounter Care Teams Electronics Mechanic Relationship Specialty Start Date End Date Arabella Villarreal MD [address] [place] [address] PCP - General 09/16/11 documented as of this encounter
--- OUTSIDE RECORDS SUMMARY | 2024-04-07 01:43 | XMS_ITS | Encounter Summary ---
Author Organization [facility] Address [facility] [place] [address] Care Team Providers Care President Name Role Phone Arabella Villarreal MD Primary Care Provider [phone] Encounter Details Date Type Department Care Team (Latest Contact Info) Description 10/31/2011 10:24 AM EDT - 10/31/2011 11:59 PM EDT Hospital [place] [phone] CLINIC, Myron Denney MD [facility] [place] [address] Hodgkin's lymphoma Discharge Disposition: Home Social History [...] Gastroesophageal Reflux 04/02/19 23 vitamin 27 & jotfico-wxng-ED 60 mg iron-1 mg tablet Take 1 tablet by mouth daily. 04/02/2022 documented as of this encounter Plan of Treatment Not on file documented as of this encounter Procedures Procedure Name Priority Date/Time Associated Diagnosis Comments DIFFERENTIAL, AUTOMATED STAT 10/31/2011 10:28 AM EDT CBC (WITH DIFF) STAT 10/31/2011 10:28 AM EDT Hodgkin's lymphoma documented in this encounter Results * (ABNORMAL) DIFFERENTIAL, AUTOMATED (10/31/2011 10:28 AM EDT) Neutrophil % 24.4(L) 34.0 - 71.0 % CERNER MILLENNIUM Neutrophil Absolute 0.50(L) 1.50 - 6.30 x10(3)/mc L CERNER MILLENNIUM Lymph % 50.0 19.0 - 53.0 % CERNER MILLENNIUM Lymphocytes Abs 1.0 1.0 - 3.6 x10(3)/mc L CERNER MILLENNIUM Monocyte % 16.2(H) 4.0 - 13.0 % CERNER MILLENNIUM Monocyte Abs 0.3 0.2 - 1.0 x10(3)/mc L CERNER MILLENNIUM Eos % 6.9 0.0 - 7.0 % CERNER MILLENNIUM Eosinophils Abs 0.1 0.0 - 0.5 x10(3)/mc L CERNER MILLENNIUM Basophil % 2.5(H) 0.0 - 2.0 % CERNER MILLENNIUM Baso [...] x10(3)/mc L CERNER MILLENNIUM Blood specimen (specimen) 10/31/2011 10:28 AM EDT 10/31/2011 10:44 AM EDT Myron Cruz MD HEMATOLOGY ORDERAB LES [facility] * (ABNORMAL) CBC (with Diff) (10/31/2011 10:28 AM EDT) Pathologist [facility] White Blood Cell 2.0(L) 4.0 - 10.0 x10(3)/mc L CERNER MILLENNIUM Red Blood Cell 4.11 3.93 - 5.22 x10(6)/mc L CERNER MILLENNIUM Hemoglobin 11.0(L) 11.2 - 15.7 gm/dL CERNER MILLENNIUM Hematocrit 35.1 34.0 - 45.0 % CERNER MILLENNIUM Mean Cell Volume 85.4 79.0 - 94.0 fL CERNER MILLENNIUM Mean Cell Hemoglobin 26.8 26.6 - 32.2 pg CERNER MILLENNIUM Mean Cell Hemoglobin Concentration 31.3(L) 32.0 - 36.5 gm/dL CERNER MILLENNIUM Platelet 366 145 - 370 x10(3)/mc L CERNER MILLENNIUM RDW Standard Deviation 44.1 35.0 - 46.0 fL CERNER MILLENNIUM RDW coefficient of variation 14.5(H) 10.9 - 14.4 % CERNER MILLENNIUM Mean Platelet Volume 8.7(L) 9.0 - 12.0 fL CERNER MILLENNIUM Blood specimen (specimen) 10/31/2011 10:28 AM EDT 10/31/2011 10:44 AM EDT Narrative Resulting Agency Comment Spec In Lab Myron Cruz MD HEMATOLOGY ORDERAB LES MAGDALENA CARTER documented in this encounter Visit Diagnoses Diagnosis Hodgkin's lymphoma Hodgkin's disease, unspecified documented in this encounter Care Teams President Relationship Specialty Start Date End Date Arabella Villarreal MD [address] [place] [address] PCP - General 09/16/11 documented as of this encounter
--- OUTSIDE RECORDS SUMMARY | 2024-04-07 01:43 | XMS_ITS | Encounter Summary ---
Author Organization [facility] [place] [address] Care Team Providers Care Line Haul Truck Driver Name Role Phone Arabella Villarreal MD Primary Care Provider [phone] Encounter Details Date Type Department Care Team (Late st Contact Info) Description 12/12/2011 Orders Only Hematology [place] [address] Myron Cruz MD [facility] DR HEMATOLOGY [place] [address] Hodgkin's lymphoma Social History Tobacco Use Types [...] Results * (ABNORMAL) Comprehensive metabolic panel (non-fasting) (12/12/2011 12:35 PM EDT) [facility] Glucose 90 60 - 199 mg/dL [facility] Comment:Diabetes: >=200 mg/d L plus symptoms Blood Urea Nitrogen 11 8 - 18 mg/dL CERNER MILLENNIUM Creatinine 0.68(L) 0.70 - 1.20 mg/dL CERNER MILLENNIUM Comment: Please note that the pediatric reference intervals supplied above were not validated at [facility]. Results from pediatric patients should be interpreted [...] Lab Myron Cruz MD CHEMISTRY [facility]ABL ES [facility] * (ABNORMAL) CBC (with Diff) (12/12/2011 12:35 [...] Standard Deviation 46.8(H) 35.0 - 46.0 fL CERNER MILLENNIUM RDW coefficient of variation 15.1(H) 10.9 - 14.4 % CERNER MILLENNIUM Mean Platelet Volume 8.7(L) 9.0 - 12.0 fL CERNER MILLENNIUM Blood specimen (specimen) 12/12/2011 12:35 PM EDT 12/12/2011 12:45 PM EDT Narrative Resulting Agency Comment Spec In Lab Myron Cruz MD HEMATOLOGY ORDERAB LES MAGDALENA CARTER documented in this encounter Visit Diagnoses Diagnosis Hodgkin's lymphoma Hodgkin's disease, unspecified documented in this encounter Care Teams Line Haul Truck Driver Relationship Specialty Start Date End Date Arabella Villarreal MD [address] [place] [address] PCP - General 09/16/11 documented as of this encounter
--- OUTSIDE RECORDS SUMMARY | 2024-04-07 01:43 | XMS_ITS | Encounter Summary ---
Author Organization [facility] [place] [address] Care Team Providers Care Bed Worker Name Role Phone Arabella Villarreal MD Primary Care Provider [phone] Reason for Visit * Reason Comments Follow-up Encounter Details Date Type Department Care Team (Late st Contact Info) Description 12/06/2011 1:00 PM EDT Follow-Up Hematology [place] [address] Myron Cruz MD [facility] [address] [place] [address] Hodgkin's lymphoma Discharge Disposition: Home Social History [...] Sign Reading Time Taken Comments Blood Pressure 118/71 12/06/2011 1:17 PM EDT Pulse 81 12/06/2011 1:17 PM EDT Temperature 36.7 ??C (98.1 ??F) 12/06/2011 1:17 PM ED T Respiratory Rate 18 12/06/2011 1:17 PM EDT Oxygen Saturation 100% 12/06/2011 1:17 PM EDT Inhaled Oxygen Concentration - - Weight 91.9 kg (202 lb 8 oz) 12/06/2011 1:17 PM EDT Height 168 cm (5' 6.14) 12/06/2011 1:17 PM EDT Body Mass Index 32.54 12/06/2011 1:17 PM EDT documented in this encounter Progress Notes * Myron Cruz MD - 12/06/2011 1:39 PM EDT HEMATOLOGY FOLLOW UP Ms. Chasity Gallo is a 31-year-old woman here for followup of Hodgkin's lymphoma stage IIA. Today she had a PET scan as per protocol. The PET-2 by our interpretation has no active lymphoma. We will need to await the final interpretation by the study radiologists. However, at this point, as per protocol we will continue with four cycles of ABVD. She states she tolerated the last cycle fairly well with having nausea two days afterwards. She used her antiemetics and started doing reflexology. She still has not lost all of her hair; however, it is falling out in clumps. Today we discussed the plan should the study radiologist agree with our PET interpretation. She will continue four more cycles of ABVD and then she will be finished with therapy. There is no radiation planned, given that her PET is negative. She has a 90% chance of cure based on her negative PET scan after two cycles. This is based on datafrom Conrad et al, in patients with Hodgkin's lymphoma treated with ABVD chemotherapy. We will see her next week for continuation of chemotherapy. I spent 20 minutes with Chasity and Nehemiah and shared with them the imaging of her PET scan. Myron Cruz MD Vacuum Applicator Operatorintelligence clerk Section of Hematology/Oncology [facility] documented in this encounter Plan of Treatment Not on file documented as of this encounter Procedures Procedure Name Priority Date/Time Associated Diagnosis Comments DIFFERENTIAL, AUTOMATED STAT 12/06/2011 1:18 PM EDT SEDIMENTATION RATE STAT 12/06/2011 1: 18 PM EDT Hodgkin's lymphoma CBC (WITH DIFF) STAT 12/06/2011 1:18 PM EDT Hodgkin's lymphoma COMPREHENSIVE METABOLIC PANEL STAT 12/06/2011 1:18 PM EDT Hodgkin's lymphoma documented in this encounter Results * (ABNORMAL) DIFFERENTIAL, AUTOMATED (12/06/2011 1:18 PM EDT) Neutrophil % 39.8 34.0 - 71.0 % CERNER MILLENNIUM Neutrophil Absolute 0.68(L) 1.50 - 6.30 x10(3)/mc L CERNER MILLENNIUM Lymph % 48.5 19.0 - 53.0 % CERNER MILLENNIUM Lymphocytes Abs 0.8(L) 1.0 - 3.6 x10(3)/mc L CERNER MILLENNIUM Monocyte % 2.3(L) 4.0 - 13.0 % CERNER MILLENNIUM Monocyte Abs 0.0(L) 0.2 - 1.0 x10(3)/mc L CERNER MILLENNIUM Eos % 5.3 0.0 - 7.0 % CERNER MILLENNIUM Eosinophils Abs 0.1 0.0 - 0.5 x10(3)/mc L CERNER MILLENNIUM Basophil % 3.5(H) 0.0 - 2.0 % CERNER MILLENNIUM Baso Absolute 0.1 0.0 - 0.2 x10(3)/mc L CERNER MILLENNIUM Immature Gran % 0.60 0.00 - 0.66 % CERNER MILLENNIUM Comment: Immature granulocytes(IG's)percentage and absolute count will include metamyelocytes, myelocytes, and promyelocytes. Blood smears from CBCs yielding IG's will be scanned manually for concordance. If this scan disagrees with the automated IG or if promyelocytes are noted, a manual differential will be performed. Immature Gran Absolute 0.01 0.00 - 0.05 x10(3)/mc L CERNER MILLENNIUM Blood specimen (specimen) 12/06/2011 1:18 PM EDT 12/06/2011 1:40 PM EDT Myron Cruz MD HEMATOLOGY ORDERAB LES CERNER MILLENNIUM * Sedimentation rate (12/06/2011 1:18 PM EDT) Sedimentation Rate Automated 17 0 - 20 mm/hr CERNER MILLENNIUM Blood specimen (specimen) 12/06/2011 1:18 PM EDT 12/06/2011 1:40 PM EDT Narrative Resulting Agency Comment Spec In Lab Myron Cruz MD HEMATOLOGY ORDERAB LES CERNER MILLENNIUM * (ABNORMAL) CBC (with Diff) (12/06/2011 1:18 PM EDT) White Blood Cell 1.7(Criti mario) 4.0 - 10.0 x10(3)/mc L CERNER MILLENNIUM Red Blood Cell 3.74(L) 3.93 - 5.22 x10(6)/mc L CERNER MILLENNIUM Hemoglobin 10.7(L) 11.2 - 15.7 gm/dL CERNER MILLENNIUM Hematocrit 31.9(L) 34.0 - 45.0 % CERNER MILLENNIUM Mean Cell Volume 85.3 79.0 - 94.0 fL CERNER MILLENNIUM Mean Cell Hemoglobin 28.6 26.6 - 32.2 pg CERNER MILLENNIUM Mean Cell Hemoglobin Concentration 33.5 32.0 - 36.5 gm/dL CERNER MILLENNIUM Platelet 320 145 - 370 x10(3)/mc L CERNER MILLENNIUM RDW Standard Deviation 43.8 35.0 - 46.0 fL CERNER MILLENNIUM RDW coefficient of variation 14.2 10.9 - 14.4 % CERNER MILLENNIUM Mean Platelet Volume 9.3 9.0 - 12.0 fL CERNER MILLENNIUM Blood specimen (specimen) 12/06/2011 1:18 PM EDT 12/06/2011 1:40 PM EDT Narrative Resulting Agency Comment Spec In Lab Myron Cruz MD HEMATOLOGY ORDERAB LES CERNER MILLENNIUM * (ABNORMAL) Comprehensive metabolic panel (non-fasting) (12/06/2011 1:18 PM EDT) [facility] [address] Glucose 95 60 - 199 mg/dL CERNER MILLENNIUM Comment:Diabetes: [...] - 107 mmol/L CERNER MILLENNIUM Carbon Dioxide 28 22 - 31 mmol/L CERNER MILLENNIUM Anion Gap 7 5 - 15 mmol/L CERNER MILLENNIUM Calcium 8.8 8.5 - 10.5 mg/dL CERNER MILLENNIUM Protein, Total 6.7 6.4 - 8.3 gm/dL CERNER MILLENNIUM Albumin 4.3 3.2 - 5.2 gm/dL CERNER MILLENNIUM Aspartate Aminotransferase 13 0 - 30 unit/L CERNER MILLENNIUM Alanine Aminotransferase 10 0 - 30 unit/L CERNER MILLENNIUM Alkaline Phosphatase 45 40 - 104 unit/L CERNER MILLENNIUM Bilirubin, Total 0.1(L) 0.2 - 1.3 mg/dL CERNER MILLENNIUM Bilirubin, [...] J Am Soc Nephrol;6:1963-72. Blood specimen (specimen) 12/06/2011 1:18 PM EDT 12/06/2011 1:40 PM EDT Narrative Resulting Agency Comment Spec In Lab Myron Cruz MD CHEMISTRY ORDERABL ES Performing Organization Address City/State/[facility] [place] Phone Number [facility] documented in this encounter Visit Diagnoses Diagnosis Hodgkin's lymphoma Hodgkin's disease, unspecified documented in this encounter Care Teams Bed Worker Relationship Specialty Start Date End Date Arabella Villarreal MD [address] [place] [address] PCP - General 09/16/11 documented as of this encounter
--- OUTSIDE RECORDS SUMMARY | 2024-04-07 01:43 | XMS_ITS | Encounter Summary ---
Author Organization [facility] [place] [address] Care Team Providers Care Yarn Mercerizer Operator Helper Name Role Phone John Vasquez MD Primary Care Provider [phone] Reason for Visit * Reason Comments Follow-up Encounter Details Date Type Department Care Team (Late st Contact Info) Description 11/15/2011 7:30 AM EDT Follow-Up [place] [address] Myron Cruz MD [facility] [address] [place] [address] Hodgkin's disease (Primary Dx) Discharge Disposition: Home Social History [...] Sign Reading Time Taken Comments Blood Pressure 121/70 11/15/2011 7:38 AM EDT Pulse 56 11/15/2011 7:38 AM EDT Temperature 36.5 ??C (97.7 ??F) 11/15/2011 7:38 AM ED T Respiratory Rate 18 11/15/2011 7:38 AM EDT Oxygen Saturation 100% 11/15/2011 7:38 AM EDT Inhaled Oxygen Concentration - - Weight 91.2 kg (201 lb) 11/15/2011 7:38 AM EDT Height 168.2 cm (5' 6.22) 11/15/2011 7:38 AM ED T Body Mass Index 32.23 11/15/2011 7:38 AM EDT documented in this encounter Progress Notes * Olga Espinoza, RN - 11/15/2011 9:07 AM EDT RESEARCH NURSE OFFICE NOTE CYCLE # 2 DAY # 1 (ABVD) 11/15/2011 [id number]: Phase II Trial of Response-Adapted Therapy Based on Positron Emission Tomography (PET) for Bulky Stage I and Stage II Classical Hodgkin Lymphoma (HL) RUT Gaspar presented to hem-onc clinic, accompanied by Nehemiah, for day 1 of cycle 2 of ABVD asper protocol. Evaluated by Dr. Cruz, please see his note for details. Please also see multiple telephone notes outlining interval history since 11/07/11. Chasity states that she feels generally well today. Continues to use scopolamine patch and ativan prn anticipatory nausea on day of treatment. Jaimee henson reports that, after her last treatment, nausea was more intense when I got home, but I bounced back faster. Used compazine [id number] until 11/05/11 for nausea. Takes ativan at night if needed (used twice in the past 2 weeks). Reports that her mouth is more sensitive to carbonation, but denies problems with this. Has stopped using immodium as her stomach settled since she finished her antibiotic course. Denies fevers, shortness of breath, numbness, or tingling. Scheduled for mediport placement today. STUDY ASSESSMENTS COMPLETED CBC, CMP (done locally on 11/14/11, results in ED) Physical exam, AE assessment CHEMOTHERAPY I verified [...] 10/23/11 11 Injection site reaction 2 11/09/11 ongoing Oral antibiotic course 12 Nausea 2 10/31/11 [...] Constipation 1 11/07/11 ongoing Docusate sodium prn EDUCATION PROVIDED Discussed amended plan for at-home use of antiemetics, based on symptomatology from this past cycle. Chasity advised to continue taking ativan @ bedtime as needed, as well as to change scopolamine patch in 3 days. For breakthrough nausea, encouraged Chasity to use Compazine 10mg every 6 hours as needed. Also discussed homeopathic remedies such as massage therapy (which she has been doing) and peppermint aromatherapy per Dr. Cruz. PLAN 1. Subject agrees to continue on study [id number] per protocol. 2. Next visit (C2D15) to be scheduled for 11/28/11 to include: Labs, MD visit, and ABVD per protocol . Patient verbalizes understanding of, and agreement with, plan. Advised to contact this office for any questions/concerns, as well as for any new or worsening symptoms. * Myron Cruz MD - 11/15/2011 7:44 AM EDT HEMATOLOGY FOLLOW UP NOTE Chasity [...] Gastroesophageal Reflux ? ? vitamin 27 & [id number] 60 mg iron-1 mg tablet Take 1 [...] negative except for above. Physical Exam: BP 121/70 Pulse 56 Temp(Src) 36.5 ??C (97.7 ??F) (Oral) Resp 18 Ht 168.2 cm (5' 6.22) Wt91.173 kg (201 lb) BMI 32.23 kg/m2 SpO2 100% Gen: well appearing, well [...] grossly intact MS: no bony tenderness Laboratory: Labs from outside lab reviewed. ANC 600. Radiographic: None reviewed today Assessment/Plan (by problem) -port insertion today--single lumen, we discussed rationale, and what to expect. Will give emla cream. -Continue C2D1 ABVD today on [id number] as scheduled today. -Will give Aloxi and Emend today and continue with scopolamine patch changing it in 48 hours to cover through day 7 for delayed nausea. Use Compazine for breakthrough nausea at 10mg which may provideclinical benefit without excessive sedation. Ativan for stress, insomnia. Zofran PRN (she choose to use as last resort, due to headache). May try aromatherapy, continue massage. --Patient was counseled about neutropenic precautions. OK to take time off from work. -RTC in day for day 15. Patient verbalizes understanding of, and agreement with, plan. Advisedto contact this office for any questions/concerns, as well as for any new or worsening symptoms. Total time spent with patient: 25 minutes Time spent in counseling and coordination of care: 20 minutes Myron Cruz MD [employer] Motor Mechanicfountain clerk Section of Hematology/Oncology [facility] Cc: JOHN VASQUEZ MD documented in this encounter Plan of Treatment Not on file documented as of this encounter Visit Diagnoses Diagnosis Hodgkin's disease- Primary Hodgkin's disease, unspecified documented in this encounter Care Teams Yarn Mercerizer Operator Helper Relationship Specialty Start Date End Date John Vasquez MD [address] [place] [id number] PCP - General 09/16/11 documented as of this encounter
--- OUTSIDE RECORDS SUMMARY | 2024-04-07 01:43 | XMS_ITS | Encounter Summary ---
Author Organization [facility] [place] [address] Care Team Providers Care Alignment Mechanic Name Role Phone Arabella Villarreal MD Primary Care Provider [phone] Encounter Details Date Type Department Care Team (Late st Contact Info) Description 11/19/2011 Telephone Hematology [place] [id number] Myron Cruz MD [facility] [address] [place] [address] Social History Tobacco Use Types Packs/Day Years [...] Telephone Encounter - Olga Espinoza RN - 11/19/2011 12:05 PM EDT RESEARCH NURSE TELEPHONE NOTE [id number]: Phase II Trial of Response-Adapted Therapy Based on Positron Emission Tomography (PET) for Bulky Stage I and Stage II Classical Hodgkin Lymphoma (HL) Date: 11/19/2011 Time: 11:50 AM Study Day: C2D5 Reason for call: Received voicemail from Chasity stating that her ears haven't changed--they're still pretty achy.Reports that she does not have a sore throat per se, but that it feels like I might be fighting something and I definitely do not have as much energy. Chasity is at work today. Discussed with Dr. Cruz, who requests patient be seen by PCP; no new orders for labs or meds at this time. Return call placed to Chasity, who states that her PCP is at [facility] in [place], [place]. Denies any fevers. Reports that she is experiencing more headaches since we spoke yesterday, which is a common symptom for her when she feeling unwell. Encouraged Chasity to continue to drink as much fluid as she is able, and to call PCP office for sick appointment. Security Services Manager called [facility] ([phone]) to obtain fax number and give brief report. Leftmessage for ISABEL Rodriguez at PCP's office advising her that I would fax over recent labs and MD note for their reference. Left my office number if needed to follow-up. Labs form 11/14/11 and MD note from 11/15/11 faxed to [phone] per real estate legal secretary's request. Patient verbalizes understanding of, and agreement with, plan. Advised to contact this office for any questions/concerns, as well as for any new or worsening symptoms. documented in this encounter Plan of Treatment Not on file documented as of this encounter Visit Diagnoses Not on filedocumented in this encounter Care Teams Alignment Mechanic Relationship Specialty Start Date End Date Arabella Villarreal MD [address] [place] [address] [address] [place] [address] PCP - General 09/16/11 documented as of this encounter
--- OUTSIDE RECORDS SUMMARY | 2024-04-07 01:43 | XMS_ITS | Encounter Summary ---
Author Organization [facility] [place] [address] Care Team Providers Care Check Out Clerk Name Role Phone Arabella Villarreal MD Primary Care Provider [phone] Reason for Visit * Reason Comments Chemotherapy Encounter Details Date Type Department Care Team (Latest Contact Info) Description 11/28/2011 8:41 AM EDT - 11/28/2011 11:59 PM EDT Hospital En[place] [address] INFUSION THERAPY, MEDS None Myron Cruz MD [facility] [address] [place] [address] Hodgkin's lymphoma Discharge Disposition: Home Social History [...] Sign Reading Time Taken Comments Blood Pressure 110/59 11/28/2011 2:15 PM EDT Pulse 85 11/28/2011 2:15 PM EDT Temperature 36.9 ??C (98.4 ??F) 11/28/2011 2:15 PM ED T Respiratory Rate 16 11/28/2011 2:15 PM EDT Oxygen Saturation 98% 11/28/2011 2:15 PM EDT Inhaled Oxygen Concentration - - [...] to [facility] 30-60 minutes prior to lab appointment, [...] Gastroesophageal Reflux 04/02/19 23 vitamin 27 & [id number]-AT 60 mg iron-1 mg tablet Take 1 tablet by mouth daily. 04/02/2022 documented as of this encounter Progress Notes * Elizabeth Steiner RN - 11/28/2011 2:19 PM EDT Patient Name: Chasity Gallo Patient Age: 31 y.o. Birthdate: 1980 Admit date: 11/28/2011 Attending Physician: Infusion Therapy,Meds TIME TREATMENT STARTED: 1055 TIME TREATMENT ENDED: 1410 Chasity Gallo, 31 y.o. female with diagnosis of hodgkins is here for chemotherapy infusion of ABVD. PROTOCOL: ABVD [id number] CYCLE: 2 WEEK: DAY: S: Pt. offers no complaints at this time. O: Chemotherapy orders independently verified for correct drug name, route and dosage per patient'sheight, weight and BSA by Alonso Hernandez RN and Honorio Steiner RN. REACTIONS (DESCRIPTION, TIME, INTERVENTION AND EFFECTIVENESS) none [...] mg, Oral, ONCE, 1 dose, On Marleny 11/28/11 at 1100, Before bleomycin on day 1 and day 15; Maximum dose of acetaminophen is 4000 mg from all sources in 24 hours., Routine Given 11/28/2011 11:00 AM EDT 650 mg bleomycin (BLEOCIN) 21 Units in sodium chloride 0.9% 57 mL chemo infusion 21 Units, Intravenous, ONCE, 1 dose, On Marleny 9/27/12 at 1100, Administer over 30 Minutes, 1 unit = 1 mg New Bag 11/28/2011 12:45 PM EDT 21 Units 114 mL/hr dacarbazine (DTIC) 770 mg in dextrose 5% 327 mL chemo infusion 770 mg, Intravenous, ONCE, 1 dose, On Marleny 11/28/11 at 1100, Administer over 30 Minutes New Bag 11/28/2011 1:35 PM EDT 770 mg 654 mL/hr DOXOrubicin (ADRIAMYCIN) injection 52 mg 52 mg, Intravenous, ONCE, 1 dose, On Marleny 11/28/11 at 1100, Administer over 5 Minutes, Vesicant/irritant. Avoid extravasation Given 11/28/2011 12:30 PM EDT 52 mg 312 mL/hr fosaprepitant (EMEND) 150 mg in sodium chloride 0.9% 155 mL infusion 150 mg, Intravenous, ONCE, 1 dose, On Marleny 11/28/11 at 1100, Administer over 30 Minutes, On day 1 and day 15, 30 minutes prior to chemotherapy. New Bag 11/28/2011 11:20 AM EDT 150 mg 310 mL/hr hydrocortisone sodium succinate (PF) (SOLU-CORTEF) injection 100 mg 100 mg, Intravenous, ONCE, 1 dose, On Marleny 11/28/11 at 1100, Before bleomycin on day 1 and day 15 Given 11/28/2011 11:10 AM EDT 100 mg LORazepam (ATIVAN) tablet 0.5-1 mg 0.5-1 mg, Oral, EVERY 4 HOURS PRN, 2 doses, Starting on Marleny 11/28/11 at 1347, Until Marleny 01/09/12 at 1042, Anxiety, Nausea, Vomiting, Routine Given 11/28/2011 2:00 PM EDT 1 mg palonosetron (ALOXI) injection 0.25 mg 0.25 mg, Intravenous, ONCE, 1 dose, On Marleny 11/28/11 at 1100, On day 1 and day 15 pre-chemotherapy, Routine Given 11/28/2011 11:08 AM EDT 0.25 mg vinBLAStine (VELBAN) chemo injection 12 mg 12 mg, Intravenous, ONCE, 1 dose, On Marleny 11/28/11 at 1100, Administer over 5 Minutes, FOR IV USE ONLY. FATAL IF GIVEN BY OTHER ROUTES. Vesicant/irritant Avoid extravasation Given 11/28/2011 12:35 PM EDT 12 mg 144 mL/hr documented in this encounter Care Teams Check Out Clerk Relationship Specialty Start Date End Date Arabella Villarreal MD [address] [place] [address] PCP - General 09/16/11 documented as of this encounter
--- OUTSIDE RECORDS SUMMARY | 2024-04-07 01:43 | XMS_ITS | Encounter Summary ---
Author Organization [facility] [place] [address] Care Team Providers Care Crew Manager Name Role Phone Arabella Villarreal MD Primary Care Provider [phone] Reason for Visit * Reason Comments Chemotherapy Encounter Details Date Type Department Care Team (Latest Contact Info) Description 11/15/2011 7:38 AM EDT - 11/15/2011 11:59 PM EDT Hospital Encounter Hematology [place] [address] INFUSION THERAPY, MEDS None Myron Cruz MD [facility] [address] [place] [address] Hodgkin's lymphoma Discharge Disposition: Home Social History [...] odgkin's disease Apply topically. Apply liberally to mediport [...] Gastroesophageal Reflux 04/02/19 23 vitamin 27 & [id number] 60 mg iron-1 mg tablet Take 1 tablet by mouth daily. 04/02/2022 documented as of this encounter Progress Notes * Libia Jay RN - 11/15/2011 11:36 AM EDT Patient Name: Chasity Gallo Patient Age: 31 y.o. Birthdate: 1980 Admit date: 11/15/2011 Attending Physician: Infusion Therapy,Meds INFUSION THERAPY ADMINISTRATION NOTES TIME TREATMENT STARTED: 1100 TIME TREATMENT ENDED: 1345 DIAGNOSIS: Hodgkin Disease PROTOCOL: [id number] CYCLE #: 2 REASON FOR VISIT: ABVD SUBJECTIVE Chasity Gallo offers no complaints. She just had a port placed right chest OBJECTIVE Right chest dressing D&I LAB DATA: Labs reviewed and found adequate for treatment. IF PAIN IS >5, INTERVENTION AND EFFECTIVENESS: n/a HYDRATION, RATE, START TIME, STOP TIME NS @ KVO, Pre administration: Chemotherapy orders independently verified for drug name, route, and dosage per patient's height, weight and BSA by Libia Jay RN and on site pharmacist. REACTIONS (DESCRIPTION, TIME, INTERVENTION AND EFFECTIVENESS) none Patient given Ativan before discharge to prevent motion sickness in the car. Also given Ibuprofen for port site discomfort. ASSESSMENT Chasity Gallo was awake, alert and she tolerated treatment well. PLAN Return to clinic per routine. documented in this encounter Plan of Treatment Not on file documented as of this encounter Procedures Procedure Name Priority Date/Time Associated Diagnosis Comments CHEMOTHERAPY SCAN Routine 11/15/2011 documented in this encounter Results * Scan Doc: Chemotherapy (11/15/2011) Historical Provider MD RETANA MGR SCAN EX T ORDR/RSLT documented in this encounter Visit Diagnoses Diagnosis Hodgkin's lymphoma Hodgkin's disease, unspecified documented in this encounter Administered Medications Inactive Administered Medications - up to 3 most recent administrations Medication Order MAR Action Action Date Dose Rate Site acetaminophen (TYLENOL) tablet 650 mg 650 mg, Oral, ONCE, 1 dose, On Fri11/15/11 at 1200, Before bleomycin on day 1 and day 15; Maximum dose of acetaminophen is 4000 mg from all sources in 24 hours., Routine Given 11/15/2011 11:10 AM EDT 650 mg bleomycin (BLEOCIN) 21 Units in sodium chloride 0.9% 57 mL chemo infusion 21 Units, Intravenous, ONCE, 1 dose, On Fri11/15/11 at 0930, Administer over 30 Minutes, 1 unit = 1 mg New Bag 11/15/2011 12:05 PM EDT 21 Units 114 mL/hr dacarbazine (DTIC) 770 mg in dextrose 5% 327 mL chemo infusion 770 mg, Intravenous, ONCE, 1 dose, On Fri11/15/11 at 0930, Administer over 30 Minutes New Bag 11/15/2011 12:40 PM EDT 770 mg 654 mL/hr DOXOrubicin (ADRIAMYCIN) injection 52 mg 52 mg, Intravenous, ONCE, 1 dose, On Fri11/15/11 at 0930, Administer over 5 Minutes, Vesicant/irritant. Avoid extravasation Given 11/15/2011 11:52 AM EDT 52 mg 312 mL/hr fosaprepitant (EMEND) 150 mg in sodium chloride 0.9% 155 mL infusion 150 mg, Intravenous, ONCE, 1 dose, On Fri11/15/11 at 1200, Administer over 30 Minutes, On day 1 and day 15, 30 minutes prior to chemotherapy. New Bag 11/15/2011 11:20 AM EDT 150 mg 310 mL/hr hydrocortisone sodium succinate (PF) (SOLU-CORTEF) injection 100 mg 100 mg, Intravenous, ONCE, 1 dose, On Fri11/15/11 at 1200, Before bleomycin on day 1 and day 15 Given 11/15/2011 11:15 AM EDT 100 mg ibuprofen (ADVIL;MOTRIN) tablet 600 mg 600 mg, Oral, ONCE PRN, 1 dose, Starting on Fri11/15/11 at 1332, Until Fri11/15/11 at 1345, Pain, Maximum dose of 3200 mg from all sources in 24 hours, Routine Given 11/15/2011 1:45 PM EDT 600 mg LORazepam (ATIVAN) tablet 0.5-1 mg 0.5-1 mg, Oral, EVERY 4 HOURS PRN, Starting on Fri11/15/11 at 1200, Until Fri11/15/11 at 2359, Anxiety, Nausea, Vomiting, May give intravenously if unable to take orally., Routine Given 11/15/2011 1:45 PM EDT 0.5 mg Given 11/15/2011 11:15 AM EDT 0.5 mg palonosetron (ALOXI) injection 0.25 mg 0.25 mg, Intravenous, ONCE, 1 dose, On Fri11/15/11 at 1200, On day 1 and day 15 pre-chemotherapy, Routine Given 11/15/2011 11:20 AM EDT 0.25 mg vinBLAStine (VELBAN) chemo injection 12 mg 12 mg, Intravenous, ONCE, 1 dose, On Fri11/15/11 at 0930, Administer over 5 Minutes, FOR IV USE ONLY. FATAL IF GIVEN BY OTHER ROUTES. Vesicant/irritant Avoid extravasation Given 11/15/2011 12:00 PM EDT 12 mg 144 mL/hr documented in this encounter Care Teams Crew Manager Relationship Specialty Start Date End Date Arabella Villarreal MD [address] [place] [address] PCP - General 09/16/11 documented as of this encounter
--- OUTSIDE RECORDS SUMMARY | 2024-04-07 01:43 | XMS_ITS | Encounter Summary ---
Author Organization [facility] [place] [address] Care Team Providers Care Hand Cutter Apprentice Name Role Phone Arabella Villarreal MD Primary Care Provider [phone] Reason for Visit * Reason Comments Follow-up Encounter Details Date Type Department Care Team (Late st Contact Info) Description 11/11/2011 Telephone [place]ology [place] [id number] Myron Cruz MD [facility] [address] [place] [address] Follow-up Social History Tobacco Use Types Packs/Day [...] Telephone Encounter - Olga Espinoza RN - 11/11/2011 5:02 PM EDT ADDENDUM 1630: Call placed to [facility] @ [facility], spoke with ISABEL Edgar in infusion suite. Chain Offbearer inquired about availability of [facility] infusion room RNs to evaluate patient's left forearm tomorrow, as patient still experiencing tenderness and questionable palpable cord in area, even though she has been on Keflex for 48 hours. Per patient report, redness is dampened, but still visible. Instructed to present to [facility] infusion suite tomorrow by 4:30 pm for RN check of left forearm. Chasity verbalizes understanding and agreement with plan. 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 Return call placed to Chasity at work this morning per her request. Chasity states that the area of concern on her left forearm is very bruised around the site and the skin appears shiny and microscaly, although the tenderness and redness are improving. Chasity reports that the area had been progressively more tender last week, but I thought that was normal. Patient states that the area is a li ttle warm to the touch in comparison to her other arm. Denies localized edema, fevers, or chills; skin remains intact. Chasity inquires as to when she can get a mediport placed, seeing as she has had such a difficult time with peripheral IVs since starting chemo. Additionally, Chasity reports that she didn't feel good yesterday after developing a runny, stuffy nose. Denies sore throat. Of note, young daughter recently had a cold. Denies nausea or vomiting. Was able to stop wearing Scopolamine patch recently. Mediport placement discussed with Dr. Cruz. Education Provided: Chasity advised that, due to availability of port scheduling, we will need to move her treatment toFriday, 11/15/11. For timeliness and convenience, patient will have labs drawn at [facility] in [facility] on , 11/14/11. MD appointment scheduled for 11/15/11 @ 7:30am, followed by mediport placement and C2D1 chemotherapy. For continued tenderness in left forearm, Chasity was reminded that she may use warm compresses to the affected site. Plan: 1. Pt will continue on study [id number] per protocol. 2. Next visit (C2D1) scheduled for 11/15/11 to include: MD visit, mediport placement, and ABVD infusion per protocol. Pre-chemo labs to be done as outlined above. Patient verbalizes understanding of, and agreement with, [...] (Dignity CT ?? POWER PORT) ?ACC#: ?? [id number] ?Indication: ?? Lymphoma, need access for chemotherapy [...] ?? time: 0.2 minutes. ? Procedure Note Frankie Lord MD - 11/15/2011 VIR PROCEDURE NOTE: Procedure: Placement of right IJ single lumen chest port (Dignity CT POWER PORT) ACC#: [id number]: Lymphoma, need access for chemotherapy TECHNIQUE: After [...] Procedure performed by Nimisha Gonsales PA-C Attending: Dr.Forauer ; {CR} ; {CR} ; {CR} ; {CR} ; {CR} Myron Cruz MD IMG IR ORDERABLES * (ABNORMAL) Comprehensive metabolic panel (non-fasting) (11/14/2011 3:46 PM EDT) Calcium 8.6(Exter nal Lab) 8.7 - 10.7 Glucose 90(Road Train Driver al Lab) Blood Urea Nitrogen 15(Road Train Driver al Lab) 4 - 21 Creatinine 0.7(Exter nal Lab) 0.5 - 1.1 Protein, Total 7.0(Exter nal Lab) 6.4 - 8.2 Albumin 4.1(Exter nal Lab) 3.5 - 5.0 Bilirubin, Total 0.2(EXTER NAL/ABN) 0.1 - 1.4 Alkaline Phosphatase 59(Road Train Driver al Lab) Sodium 139(Exter nal Lab) 137 - 147 Potassium 4.2(Exter nal Lab) 3.4 - 5.3 Chloride 104(Exter nal Lab) 99 - 108 Carbon Dioxide 26(Road Train Driver al Lab) 22 - 29 Aspartate Aminotransferase 11(OFFICE HELPER CLERICAL AL/ABN) 13 - 35 Alanine Aminotransferase 19(Road Train Driver al Lab) 7 - 35 Blood specimen (specimen) 11/14/2011 3:46 PM EDT Myron Cruz MD CHEMISTRY ORDERABL ES * (ABNORMAL) CBC (with Diff) (11/14/2011 3:46 PM EDT) White Blood Cell 2.31(EXTER NAL/ABN) Hemoglobin 11.0(EXTER NAL/ABN) 12.0 - 16.0 Hematocrit 33.5(EXTER NAL/ABN) 36.0 - 46.0 Platelet 305(Road Train Driver al Lab) Neutrophil Absolute (ANC) - Automated 0.60(EXTER NAL/ABN) Blood specimen (specimen) 11/14/2011 3:46 PM EDT Myron Cruz MD HEMATOLOGY ORDERAB LES documented in this encounter Visit Diagnoses Diagnosis Hodgkin's lymphoma- Primary Hodgkin's disease, unspecified Hodgkin's lymphoma Hodgkin's disease, unspecified documented in this encounter Care Teams Hand Cutter Apprentice Relationship Specialty Start Date End Date Arabella Villarreal MD [address] [place] [address] PCP - General 09/16/11 documented as of this encounter
--- OUTSIDE RECORDS SUMMARY | 2024-04-07 01:43 | XMS_ITS | Encounter Summary ---
Author Organization [facility] [place] [address] Care Team Providers Care Dispensing And Measuring Optician Name Role Phone Arabella Villarreal MD Primary Care Provider [phone] Encounter Details Date Type Department Care Team (Late st Contact Info) Description 11/18/2011 Telephone Hematology [place] [phone] Myron Cruz MD [facility] [address] [place] [address] Social History Tobacco Use Types Packs/Day Years [...] Encounter - Olga Espinoza RN - 11/19/2011 1:19 PM EDT RESEARCH NURSE TELEPHONE NOTE [id number]: Phase II Trial of Response-Adapted Therapy Based on Positron Emission Tomography (PET) for 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 Reports having taken Compazine 5mg at a maximum frequency of every 4 hours, although reports that she usually hasonly taken 2-3 per day. Denies any vomiting. Chasity states I felt really bad this morning, butate some toast and is feeling somewhat better now. Mediport site remains very sore, but denies any redness, swelling, warmth of skin. Taking ibuprofen a couple times a day for mediport site tenderness. Finished Keflex course yesterday. Had a headache during the evening of chemotherapy (11/15/11), for which her aunt gave her a massage and it subse quently subsided. Endorses fatigue, a little dizziness, and a burned feeling in her mouth. Chasity reports new onset of achy ears yesterday. Denies fever, sore throat, or other upper respiratory symptoms. Chasity states that she usually has sinus headaches when she is getting an upper respiratory infection, but she has not had a headache since Friday PM. Denies pruritis, sensation of fluid in ears, or discharge from ears. Education Provided: Encouraged Chasity to continue to monitor her temperature closely, as well as for the development of any additional upper respiratory symptoms including, but not limited to runny/stuffy nose, cough, sore throat. Advised to increase oral fluid intake as she is able and call back if symptoms worsen or fail to improve over the next few days. Plan: 1. Pt will continue on study [id number] per protocol. 2. Next visit (C2D15) to be scheduled for 11/28/11 to include: Labs, MD visit, and infusion per protocol. Patient verbalizes understanding of, and agreement with, plan. Advised to contact this office for any questions/concerns, as well as for any new or worsening symptoms. documented in this encounter Plan of Treatment Not on file documented as of this encounter Visit Diagnoses Not on filedocumented in this encounter Care Teams Dispensing And Measuring Optician Relationship Specialty Start Date End Date Arabella Villarreal MD [address] [place] [address] PCP - General 09/16/11 documented as of this encounter
--- OUTSIDE RECORDS SUMMARY | 2024-04-07 01:44 | XMS_ITS | Encounter Summary ---
[place] [address] Care Team Providers Care Teasel Setter Name Role Phone Arabella Villarreal MD Primary Care Provider [phone] Encounter Details Date Type Department Care Team (Late st Contact Info) Description 09/25/2011 7:30 AM EDT - 09/25/2011 9:28 AM EDT [place] [id number] Courtney Garcia MD BIOPSY OR EXCISION OF LYMPH NODE(S), OPEN, DEEP CERVICAL NODES (WRVU 6.74) Social History Tobacco Use Types Packs/Day Years [...] Sign Reading Time Taken Comments Blood Pressure 113/63 09/25/2011 10:10 AM EDT Pulse 63 09/25/2011 10:10 AM EDT Temperature 36.5 ??C (97.7 ??F) 09/25/2011 9:00 AM ED T Respiratory Rate 16 09/25/2011 10:10 AM EDT Oxygen Saturation 97% 09/25/2011 10:10 AM EDT Inhaled Oxygen Concentration - - Weight - - Height - - Body Mass Index - - documented in this encounter Discharge Instructions * Discharge Instructions* Renate Campos RN - 09/25/2011 11:19 AM EDT POST ANESTHESIA INSTRUCTIONS Go home, rest, use caution on stairs. Change positions slowly. Do not smoke if you are alone. Diet light to regular as tolerated today. If nausea occurs start with clear liquids and progress slowly. No driving, operating machinery, alcoholic beverages and no important decisions for 24 hours. Monitor IV site for signs and symptoms of infection: increasing redness, swelling, foul drainage, if occurs contact M.D. Patients who have had endotrachial tubes (this tube, used by anesthesia department, is passed down your throat after you are asleep, to ensure safe air passage during your operation). A sore throat is normal due to the tube. Cold liquids or soothing lozenges will help ease the discomfort. The generalized muscle aches are due to the medication given to you just before the tube is inserted. As the medication wears off, you may develop muscle soreness, which usually goes away in 12-24 hours. * Patient Instructions* Kevin Easley MD - 09/25/2011 7:31 AM EDT Patient Instructions: Call your doctor if: 1. Monitor your incision for the following signs and symptoms of infection: 2. Redness or swelling, (some mild redness around the incision and the staple sites is normal) 3. Drainage or bleeding 4. Fever over 100.5 F 5. Increased pain or discomfort at the incision site 6. Persistent vomiting or the inability to keep foods or fluids down in a 24 hour period 7. Or any other concern, such as trouble breathing, pain with urination, or new leg pain/swelling. Also, please call with increasing abdominal pain, firmness, stop passing gas for an extended period of time, or bloody bowel movements or vomitus. CALL THE GENERAL SURGERY CLINIC DURING WORKING HOURS AT , OR CALL AFTER CLINIC HOURS, WEEKENDS AND HOLIDAYS: ASK FOR THE SURGERY RESIDENT ENT PHYSICIAN IF ANY OF THE ABOVE OCCUR. Activity level: Activity as tolerated by comfort level. Diet: You may resume your regular diet as tolerated. Driving: No driving while still taking opioid pain medications (wait at least 6- 8 hours since last dose). No driving if you are still sore from surgery as it may limit your ability to react quickly if necessary. Shower/Bath: You may shower and get incision(s) wet. Pat dry immediately following. Do not scrub them vigorously for the next 2-3 weeks. Do not soak incision(s) for the next 2 weeks (i.e. soaking in bath or swimming) as this may promote a wound infection. Wound Care: Wash incision with soap and water, pat dry, and leave open to air. Allow steri-strips (pieces of tape) to fall off on their own if you have them. You may cover with gauze as needed to prevent incision rubbing on clothes or for any seepage. Pain control: you may find that all you need for adequate pain control are over the counter medications including acetaminophen and ibuprofen. However, you will be provided with some prescription pain medication that you can take for severe pain. You may take over the counter pain medications for post-operative discomfort and the prescription pain medication for severe pain. Acetaminophen 650 mg by mouth every six hours as needed. Ibuprofen 600 mg by mouth every six hours as needed. Follow up Appointments: Please follow up with Dr. Garcia in two weeks. Please call the thoracic surgery clinic to arrange an appointment. documented in this encounter Medications at Time of Discharge Medication Sig Dispensed Refills Start Date End Date OXYcodone (ROXICODONE) 5 mg immediate release tablet [...] Gastroesophageal Reflux 04/02/19 23 vitamin 27 & [id number] 60 mg iron-1 mg tablet Take 1 tablet by mouth daily. 04/02/2022 documented as of this encounter Progress Notes * Valerie Bruno RN - 09/25/2011 6:23 AM EDT Urine test negative documented in this encounter H&P Notes * Kevin Easley MD - 09/24/2011 12:06 PM EDT Please see recent note for full details. Patient states no change since last seen. There were no vitals filed for this visit. NAD Slight fullness in right neck. MMM RRR CTAB ABD: s/nt/nd Ext: normal/warm Proceed with planned procedure. documented in this encounter Miscellaneous Notes * Miscellaneous - Provider, Scanning - 09/26/2011 3:17 AM EDT * Op Note - Courtney Garcia MD - 09/25/2011 8:55 AM EDT [facility] Operative Note Patient Name: Vidhi Perez : [id number] MR#: [id number] Case Date: 09/25/2011 Surgeon: Surgeon(s) and Role: * COURTNEY GARCIA MD - Primary * KEVIN EASLEY MD - Resident-Surgeon Giovany Preoperative diagnosis: Mediastinal mass Postoperative diagnosis: Mediastinal mass Procedure(s): BIOPSY OR EXCISION OF LYMPH NODE(S), OPEN, DEEP CERVICAL NODES Anesthesia: General Findings: Firm, non-mobile mass extending from right neck to thoracic inlet Complications: none Fluids: 800 cc uop 300 ebl 5 Estimated Blood Loss: 5 cc Drains: none Disposition: awakened from anesthesia, extubated and taken to the recovery room in a stable condition, having suffered no apparent untoward event. Condition: doing well without problems (Please see the Surgical Encounter Summary for any Implant and Specimen details pertinent to this patient.) HPI/Surgical Indications: Vidhi Perez is a 31 yo female who presented to the hospital 2 weeks ago with a neck mass. She wasseen by Dr. Sánchez and the head and neck team for an enlarging neck mass. She has since had a non-diagnostic neck biopsy. She presented to me yesterday to discuss biopsy. We talked about needing adequate tissue to make the diagnosis. This would involve a neck incision to biopsy the mass and possible cervical mediastinoscopy to biopsy a mediastinal component if the neck mass was not adequately biopsied. Risks discussed include but are not limited to bleeding; pain; infection; injury to chest structures including but not limited to heart, lungs, great vessels, nerves and esophagus; prolonged hospital/ICU stay; AR; arrhythmia; pneumonia; oxygen dependence; stroke and . The patient wanted to proceed with surgery. I answered all of the patient's questions to her satisfaction. Procedure Description: The patient was sedated and intubated with a single lumen tube. The patient was positioned in the supine position with shoulders elevated and arms tucked. A 1.5 cm cervical incision one fingerbreadthabove the sternal notch was made in the transverse orientation. I used electrocautery to divide thesubcutaneous tissue and the platysma. The lateral border of the right sternocleidomastoid muscle was retracted medially to reveal a firm, white, non-mobile mass that extended into the right thoracic inlet. I dissected around the mass, entering a capsule of tissue to reveal more of the mass. Using my index finger I carefully lifted an edge of the mass up. Using a 3-0 silk suture, I pulled the mass superficially. I then used electrocautery to remove a 1 cm x 1 cm section from the mass. This was cut and sent for frozen section which was concerning for lymphoma. The remainder of the specimen was sent for permanent pathology and evaluation of flow cytometry. I called Dr. Cruz, our hematology marketing specialist to follow up on these results. I found no evidence of bleeding on inspection of the biopsy bed. I closed the platysma in a running3-0 vicryl. Finally, the skin was closed with a running 4-0 monocryl. Dermabond was used to close the skin edges as well. Five cc of 1/2 % marcaine with epinepherine was used in the incision. * OR Attestation - Courtney Garcia MD - 09/25/2011 8:54 AM EDT Attestation: Case Date: 09/25/2011 I was present and I participated in all portions of this procedure; and I was immediately availablefollowing the procedure. COURTNEY GARCIA MD 09/25/2011 * Brief Op Note - Courtney Garcia MD - 09/25/2011 8:52 AM EDT Brief Operative Note Patient Name: Vidhi Perez : [id number] MR#: [id number] Case Date: 09/25/2011 Surgeon: Surgeon(s) and Role: * COURTNEY GARCIA MD - Primary * KEVIN EASLEY MD - Resident-Surgeon Giovany Preoperative diagnosis: Mediastinal mass Postoperative diagnosis: Mediastinal mass Procedure(s): BIOPSY OR EXCISION OF LYMPH NODE(S), OPEN, DEEP CERVICAL NODES Anesthesia: General Findings: Firm, non-mobile mass extending from right neck to thoracic inlet Complications: none Fluids: 800 cc uop 300 ebl 5 Estimated Blood Loss: 5 cc Drains: none Disposition: awakened from anesthesia, extubated and taken to the recovery room in a stable condition, having suffered no apparent untoward event. Condition: doing well without problems (Please see the Surgical Encounter Summary for any Implant and Specimen details pertinent to this patient.) * Miscellaneous - Provider, Scanning - 09/25/2011 8:36 AM EDT documented in this encounter Plan of Treatment Scheduled Orders Name Type Priority Associated Diagnoses Orde r Schedule POCT urine Point of Care Testing Routine Mediastinal mass Ordered: 09/25/2011 documented as of this encounter Procedures Procedure Name Priority Date/Time Associated Diagnosis Comments BIOPSY OR EXC OF LYMPH NODES; OPEN, DEEP CERVICAL NODES Routine 09/26/2011 7:49 AM EDT Mediastinal mass FROZEN SECTION REPORT Routine 09/25/2011 8:18 AM EDT SURGICAL PATHOLOGY REPORT Routine 09/25/2011 8:18 AM EDT SPECIMEN TO PATHOLOGY Routine 09/25/2011 8:17 AM EDT SPECIMEN TO PATHOLOGY STAT 09/25/2011 8:17 AM EDT BIOPSY OR EXCISION OF LYMPH NODE(S), OPEN, DEEP CERVICAL NODES (WRVU 6.74) 09/25/2011 7:14 AM EDT Mediastinal mass documented in this encounter Results * SURGICAL PATHOLOGY REPORT (09/25/2011 8:18 AM EDT) Surgical Pathology Report ? [facility] ? Provider: ?? COURTNEY GARCIA ?Pt. Name: ?? VIDHI PEREZ ? Acc #: ?[id number] ?Pt. ? Col Date: ?? 09/25/2011 ? /Sex: ?1980,(31 years),Female ? Rec Date: ?? 09/25/2011 ? LOC: ?[facility] ? SURGICAL PATHOLOGY ? ---Pathologic Diagnosis--- ? 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 ? 09/27/11 ? SM ? 09/30/11 Verified by: ? Ag Montgomery MD ? Hematopathologist ? (Electronic Signature) ? The attending pathologist whose signature appears on this report has ? reviewed all diagnostic slides and has edited the gross and/or ? microscopic portion of the report in rendering the final pathologic ? diagnosis. ? ---Microscopic Description--- ? Lymph node sections show an effaced architecture. The capsule is thick and ? broad bands of septa are seen traversing throughout the lymphnode dividing ? it into lobules. Large bi and mononucleate cells with vesicular chromatin ? and prominent eosinophillic nucleoli R-S cells are present scattered in a ? background of mature cells comprising of lymphocytes, eosinophils and ? histiocytes. Immunohistochemistry Studies: ? Interpretation: ??Formalin-fixed, paraffin-embedded tissue sections are ? studied for CD30, CD15, Cd45, CD20, CD3, CD43, PAX5, ALK1 on block(s) B1 ? using the Avidin-Biotin Complex Technique with appropriate controls. ??These ? large cells stain positive for CD30 ( diffuse strong), CD15 ( subset, weak) ? and PAX5 (faint) and are negative for LCA, CD20, CD43 and ALK1. The ? background mature cells are composed of predominantly CD3 positive T cells ? along with some admixed CD20 positive B cells. Apoptotic cells are also ? noted. ? ---Gross Description--- ? A - Labeled/Fixative: Right neck mass biopsy ? lymphoma; fresh. ? Qty/Size/Weight: ?Single, 1.3 x 1.0 x 1.0 cm. ? Tissue Description: ?? [place], congested, focally charred, rubbery portion of ? soft tissue displaying a lobulated, pink and white ? cut surface. ? Sections/Processing: ??Touch imprints are prepared, and claim service representative ? portion is processed for frozen section as (AFS1), ? resubmitted as (A1). ??(A2-A3) remainder of the ? specimen. ??(T3) ? B - Labeled/Fixative: Right neck mass biopsy, fresh. ? [facility] ? Provider: ?? COURTNEY GARCIA ?Pt. Name: ?? VIDHI PEREZ ? Acc #: ?[id number] ?Pt. ? Col Date: ?? 09/25/2011 ? /Sex: ?1980,(31 years),Female ? Rec Date: ?? 09/25/2011 ? LOC: ?[facility]A ? SURGICAL PATHOLOGY ? Qty/Size/Weight: ?Single, 1.5 x 1.0 x 0.8 cm. ? Tissue Description: ?? [place], nodular, focally charred, rubbery, soft tissue. ? The specimen is serially sectioned revealing a ? congested, yellow-white, homogeneous, fibrofatty cut ? surface. ? Sections/Processing: ??The cytologic touch imprints are prepared and the ? specimen processed entirely. ??(B1) specimen initially ? prepped as for frozen section; (B2-B3) remainder of ? the specimen. ??(T3) ??aje/SHB ? ---Clinical Information--- ? Specimen Submitted: ? A - Right neck mass biopsy. ? lymphoma for frozen section ? B - Right neck mass biopsy ? Clinical History/Diagnosis: ? Right neck & mediastinal mass ? lymphoma MAGDALENA CARTER 09/25/2011 8:18 AM EDT Courtney Garcia MD PATHOLOGY/CYTOLOGY O RDERABLES MAGDALENA CARTER * FROZEN SECTION REPORT (09/25/2011 8:18 AM EDT) Frozen Section Report ? [facility] ? Provider: ?? COURTNEY GARCIA ?Pt. Name: ?? VIDHI PEREZ ? Acc #: ?[id number] ?Pt. ? Col Date: ?? 09/25/2011 ? /Sex: ?1980,(31 years),Female ? Rec Date: ?? 09/25/2011 ? LOC: ?SDA ? FROZEN SECTION REPORT ? ---Frozen Section Report--- ? suspicious for Hodgkin Lymphoma. ? 09/25/11 ??Verified by: ??Valentina ROBERTS, Ag, Hematopathologist ? The attending pathologist whose electronic signature appears on this report ? has reviewed all diagnostic slides in rendering the frozen section ? diagnosis. ? This intraoperative consultation should be interpreted as a preliminary ? diagnosis pending review of the entire specimen and special studies, if ? any. MAGDALENA CARTER 09/25/2011 8:18 AM EDT Courtney Garcia MD PATHOLOGY/CYTOLOGY O LIV Performing Organization Address [facility] Phone Number MAGDALENA CARTER * Specimen to Pathology (surgical or derm) (09/25/2011 8:17 AM EDT) AP Specimen 09/25/2011 8:17 AM EDT 09/25/2011 8:17 AM EDT Narrative MAGDALENA CARTER - 09/25/2011 8:17 AM EDT Specimen requisition ordered. ??Separate Pathology report to follow Courtney Garcia MD PATHOLOGY/CYTOLOGY O LIV Performing Organization Address [facility] Phone Number MAGDALENA CARTER * Specimen to Pathology (surgical or derm) (09/25/2011 8:17 AM EDT) AP Specimen 09/25/2011 8:17 AM EDT 09/25/2011 8:17 AM EDT Narrative MAGDALENA CARTER - 09/25/2011 8:17 AM EDT Specimen requisition ordered. ??Separate Pathology report to follow Courtney Garcia MD PATHOLOGY/CYTOLOGY O LIV Performing Organization Address [facility] Phone Number MAGDALENA CARTER documented in this encounter Visit Diagnoses Diagnosis Neck mass Swelling, mass, or lump in head and neck Mediastinal mass Swelling, mass, or lump in chest Mediastinal mass Swelling, mass, or lump in chest documented in this encounter Administered Medications Inactive Administered Medications - up to 3 most recent administrations Medication Order MAR Action Action Date Dose Rate Site BUpivacaine-epiNEPHrine 0.5 %-1:200,000 injection ONCE PRN, Starting on Fri09/25/11 at 0830, Until Fri09/25/11 at 1518, Intra-Operative (Intra-Procedure), Routine Given 09/25/2011 8:30 AM EDT 7 mLs 19- Surgical Site ceFURoxime (ZINACEF) 1.5g vial attach to sodium chloride 0.9% 100 mL Mini-Bag Plus 1.5 g, Intravenous, ONCE, 1 dose, On Fri09/25/11 at 0630, Administer over 60 Minutes, Within one hour pre-operatively, Intra-Operative (Intra-Procedure), Indication for (Active or Suspected): Prophylaxis Given 09/25/2011 7:38 AM EDT 1.5 g heparin (porcine) subcutaneous injection 5,000 Units 5,000 Units, Subcutaneous, ONCE, 1 dose, On Fri09/25/11 at 0630, Not within 60 minutes of placing epidural catheter., Day of Surgery (Day of Procedure), Routine Given 09/25/2011 7:25 AM EDT 5,000 Units Left Arm documented in this encounter Active and Recently Administered Medications Times are shown in EDT. Scheduled Medication Order 09/23/2011 09/24/2011 09/25/2011 ceFURoxime (ZINACEF) 1.5g vial attach to sodium chloride 0.9% 100 mL Mini-Bag Plus (COMPLETED) 1.5 g, Intravenous, ONCE, 1 dose, On Fri09/25/11 at 0630, Administer over 60 Minutes, Within one hour pre-operatively, Intra-Operative (Intra-Procedure), Indication for (Active or Suspected): Prophylaxis 629 (Due)0738 (Give n - Provider: Christie Murray - Comment: pre incision antibiotic) heparin (porcine) subcutaneous injection 5,000 Units (COMPLETED) 5,000 Units, Subcutaneous, ONCE, 1 dose, On Fri09/25/11 at 0630, Not within 60 minutes of placing epidural catheter., Day of Surgery (Day of Procedure), Routine 0630 (Due)0725 (Give n - Provider: Christie Murray) Continuous Medication Order 09/23/2011 09/24/2011 09/25/2011 lactated ringers infusion 1,000 mL (CANCELED) 1,000 mL, at 100 mL/hr, Intravenous, CONTINUOUS, Starting on Fri09/25/11 at 0630, Until Fri09/25/11 at 1518, Day of Surgery (Day of Procedure) 0641 (New Bag - Prov ider: Valerie Bruno RN) lactated ringers infusion 1,000 mL (CANCELED) 1,000 mL, at 100 mL/hr, Intravenous, CONTINUOUS, Starting on Fri09/25/11 at 0915, Until Fri09/25/11 at 1518, PACU Recovery 914 (Due)1055 (New Bag - Provider: Renate Campos RN) PRN Medication Order 09/23/2011 09/24/2011 09/25/2011 acetaminophen (TYLENOL) tablet 650 mg (CANCELED) 650 mg, Oral, EVERY 4 HOURS PRN, Starting on Fri09/25/11 at 0729, Until Fri09/25/11 at 1518, Pain, Maximum dose of acetaminophen is 4000 mg from all sources in 24 hours., Routine 09 (Given - Provid er: Renate Campos RN) BUpivacaine-epiNEPHrine 0.5 %-1:200,000 injection (CANCELED) ONCE PRN, Starting on Fri09/25/11 at 0830, Until Fri09/25/11 at 1518, Intra-Operative (Intra-Procedure), Routine 829 (Given - Provid er: Kevin Easley MD) fentaNYL 50mcg/mL injection (CANCELED) 25-50 mcg, Intravenous, EVERY 5 MIN PRN, Starting on Fri09/25/11 at 0855, Until Fri09/25/11 at 1518, Pain, for breakthrough pain, Hold for respiratory rate less than 10 per minute. Maximum dose: 250 mcg over one hour., PACU Recovery, Routine 09 (Given - Provid er: Renate Campos RN)0942 (Given - Provider: Renate Campos RN)1007 (Given - Provider: Renate Campos RN)1016 (Given - Provider: Renate Campos, ISABEL)1055 (Given - Provider: Renate Campos, RN) ibuprofen (ADVIL;MOTRIN) tablet 600 mg (CANCELED) 600 mg, Oral, EVERY 6 HOURS PRN, Starting on Fri09/25/11 at 0729, Until Fri09/25/11 at 1518, Pain, Maximum dose of 3200 mg from all sources in 24 hours, Routine 0957 (Given - Provid er: Renate Campos RN) OXYcodone (ROXICODONE) immediate release tablet 5-10 mg 5-10 mg, Oral, EVERY 4 HOURS PRN, Starting on Fri09/25/11 at 0729, Until Fri09/25/11 at 1518, Pain, Routine 1016 (Given - Provid er: Renate Campos RN)1054 (Given - Provider: Renate Campos RN) promethazine (PHENERGAN) injection 6.25 mg (COMPLETED) 6.25 mg, Intravenous, ONCE PRN, Nausea, Starting on Fri09/25/11 at 0855, 1 dose, Until Fri09/25/11 at 1102, Dilute in 20 mL sodium chloride 0.9% and administer through a free flowing IV. Usual dose range 0.25-0.5 mg/kg/dose to a maximum of 25 mg/dose, PACU Recovery 1102 (Given - Provid er: Renate Campos RN) documented in this encounter Care Teams Teasel Setter Relationship Specialty Start Date End Date Arabella Villarreal MD [address] [place] [address] PCP - General 09/16/11 documented as of this encounter
--- OUTSIDE RECORDS SUMMARY | 2024-04-07 01:44 | XMS_ITS | Encounter Summary ---
Author Organization [facility] [place] [address] Care Team Providers Care It Compliance Manager Name Role Phone Arabella Villarreal MD Primary Care Provider [phone] Encounter Details Date Type Department Care Team (Late st Contact Info) Description 10/14/2011 External Results XRay at [address] [place] [address] Rodrigo Langley MD EMERGENCY DEPT [address] [place] [address] [id number] Social History Tobacco Use Types Packs/Day Years [...] Name Priority Date/Time Associated Diagnosis Comments CT SCAN (SCAN) Routine 09/12/2011 documented in this encounter Results * Scan Doc: CT Scan (09/12/2011) Anatomical Region Laterality Modality Other Rodrigo Kline MD MEDIA MGR SCAN EXT O RDR/RSLT documented in this encounter Visit Diagnoses Not on filedocumented in this encounter Care Teams It Compliance Manager Relationship Specialty Start Date End Date Arabella Villarreal MD [address] [facility] [place] [address] PCP - General 09/16/11 documented as of this encounter
--- OUTSIDE RECORDS SUMMARY | 2024-04-07 01:44 | XMS_ITS | Encounter Summary ---
Author Organization [facility] [place] [address] Care Team Providers Care Typewriters Functional Tester Name Role Phone Arabella Villarreal MD Primary Care Provider [phone] Reason for Visit * Reason Comments Follow-up Encounter Details Date Type Department Care Team (Late st Contact Info) Description 10/14/2011 11:30 AM EDT Follow-Up Hematology [place] [address] Myron Cruz MD [facility] [address] [place] [address] Hodgkin's lymphoma (Primary Dx) Discharge Disposition: Home [...] Sign Reading Time Taken Comments Blood Pressure 123/68 10/14/2011 11:30 AM EDT Pulse 64 10/14/2011 11:30 AM EDT Temperature 37 ??C (98.6 ??F) 10/14/2011 11:30 AM EDT Respiratory Rate 16 10/14/2011 11:30 AM EDT Oxygen Saturation 100% 10/14/2011 11:30 AM EDT Inhaled Oxygen Concentration - - Weight 91 kg (200 lb 9.9 oz) 10/14/2011 11:30 AM EDT Height 168.3 cm (5' 6.26) 10/14/2011 11:30 AM E DT Body Mass Index 32.13 10/14/2011 11:30 AM EDT documented in this encounter Progress Notes * Myron Cruz MD - 10/16/2011 12:11 PM EDT HEMATOLOGY FOLLOW UP 31yo F with HL, stage IIA, unfavorable by ESR, #LN, bulky mediastinal mass. [id number] Patient Active Problem List Diagnoses ??? Hodgkin's lymphoma STAGE IIA. Unfavorable. ESR >50 (68), and large mediastinal adenopathy (>10cm), and involvement of four or more lymph node regions.. Col Date: 09/25/2011 SURGICAL PATHOLOGY ---Pathologic Diagnosis--- [...] lymphoma is felt to be less likely. Recent Results (from the past 72 hour(s)) ECHOCARDIOGRAM TRANSTHORACIC Component Value Range ??? EF 69 ASSESSMENT/PLAN I met with Chasity and her , Nehemiah, today to discuss the results of her staging studies. Her CT scan showed lymphadenopathy in the neck and chest. The PET scan confirmed this lymphadenopathy was limited to the neck and chest. Her bone marrow biopsy was negative. She is considered stage IIA. Her unfavorableprognostic factors are an elevated ESR of 68, multiple lymphadenopathy, and bulky mediastinal mass. We reviewed her CT scan [facility] on October 15, 2011. Her mass extends in the craniocaudal dimension and measures 10.1 cm. This puts her in the bulky stage group. We went over treatments. She would start with ABVD chemotherapy. She has agreed to participate in the CALGB ([place]) trial for patients with newly diagnosed Hodgkin lymphoma with bulky disease. I went over the chemotherapy agents of ABVD. I went over the side effects, which include hair loss, nausea, vomiting, infection, pulmonary toxicity, and cardiotoxicity. At the last visit, we also discussed fertility. If she is treated with ABVD to completion, the likelihood is that she can restore her fertility, and only 10% of patients may become infertile with ABVD chemotherapy. However, if she needed to get an intensified therapy as we proceed on the protocol, her fertility would be compromised. At the last visit she was willing to accept this side effect if it meant having a higher chance of cure for her lymphoma. We will start her chemotherapy on . Her EF is permissive. Her PFTs are normal. All her questions are answered at this time. We will see her again in a few days to start the chemotherapy, and she will be given the opportunity to ask additional questions. Myron Cruz MD [employer] Operatorsupervisor sintering plant Section of Hematology/Oncology [facility] documented in this encounter Plan of Treatment Not on file documented as of this encounter Procedures Procedure Name Priority Date/Time Associated Diagnosis Comments REQUEST FOR 2ND READ DX CHEST STAT 10/14/2011 1:18 PM EDT documented in this encounter Results * REQUEST FOR 2ND READ DX CHEST (10/14/2011 1:18 PM EDT) Anatomical Region Laterality Modality Other 10/14/2011 1:18 PM EDT Narrative 10/14/2011 4:01 PM EDT Examination OUTSIDE DX CHEST Clinical History I believe a reinterpretation of this exam may alter care of Patient. Yes; What Modality is the exam? Diagnostic; Body Part (please add comments as necessary): Chest; Does mediastinal mass measure > 0.33 maximum intrathoracic diameter or does mass measure greater than 10 cm in largest diameter? Comparison None Technique Standing PA and lateral chest radiograph from outside hospital performed on 09/12/2011. Findings Although there is no discrete mass, the multiple enlarged mediastinal lymph nodes result in prominence of the right anterior mediastinum, superior mediastinum, and paratracheal soft tissues. This is better seen on the subsequent chest CT. The widened superior mediastinum measures 8.5 cm in diameter however this includes the great vessels. The maximum intra thoracic diameter is 35 cm. There is no pneumothorax, pleural effusion, or focal pulmonary consolidation. ??The cardiac silhouette, and pulmonary vasculature are normal. ??Limited views of the upper abdomen and bones are normal. Impression Extensive enlarged mediastinal lymphadenopathy which is better visualized on the subsequent chest CT. ?? No discrete mass is present to measure, however, a prominent superior mediastinum is neither greater than the maximum intrathoracic diameter or greater than 10 cm. If there are further clinical/research guidelines on how to measure this conglomeration of lymph nodes, they can be provided to the [facility] Radiology department and an addendum to this report can be made. Film and interpretation reviewed by the attending Procedure Note Aditya Salgado MD - 10/14/2011 Examination OUTSIDE DX CHEST Clinical History I believe a reinterpretation of this exam may alter care of Patient. Yes;What Modality is the exam? Diagnostic; Body Part (please add comments asnecessary): Chest; Does mediastinal mass measure > 0.33 maximum intrathoracic diameteror does mass measure greater than 10 cm in largest diameter? Comparison None Technique Standing PA and lateral chest radiograph from outside hospital performedon 09/12/2011. Findings Although there is no discrete mass, the multiple enlarged mediastinallymph nodes result in prominence of the right anterior mediastinum, superior mediastinum, and paratracheal soft tissues. This is better seen on the subsequent chest CT. The widened superior mediastinum measures 8.5 cm in diameter however this includes the great vessels. The maximum intrathoracic diameter is 35 cm. There is no pneumothorax, pleural effusion, or focal pulmonary consolidation. The cardiac silhouette, and pulmonaryvasculature are normal. Limited views of the upper abdomen and bones are normal. Impression Extensive enlarged mediastinal lymphadenopathy which is better visualizedon the subsequent chest CT. No discrete mass is present to measure, however, a prominent superior mediastinum is neither greater than the maximum intrathoracic diameter or greater than 10 cm. If there are further clinical/research guidelines on how to measure this conglomeration of lymph nodes, they can be provided to the [facility] Radiology department and an addendum to this report can be made. Film and interpretation reviewed by the attending Myron Cruz MD IMG OUTSIDE INTERP RETATION ORDERABLES * XR chest routine PA & lateral (10/14/2011 12:52 PM EDT) Anatomical Region Laterality Modality Chest N/A Radiographic Elena ging 10/14/2011 12:5 2 PM EDT Narrative 10/14/2011 2:44 PM EDT Examination CHEST ROUTINE PA+LAT Clinical History Is mediastinal mass > 0.33 maximum intrathoracic diameter while standing? ??Is mass measuring greater than 10cm in largest diameter? Comparison Chest radiographs on 09/12/[address] on 10/10/2011. Technique Standing PA and lateral chest radiograph. Findings Although there is no discrete mass, the multiple enlarged mediastinal lymph nodes result in prominence of the right anterior mediastinum, superior mediastinum, and paratracheal soft tissues. The superior mediastinum measures 8.5 cm in diameter however this includes the great vessels. The maximum intra thoracic diameter is 35 cm. There is no pneumothorax, pleural effusion, or focal pulmonary consolidation. ??The cardiac silhouette, and pulmonary vasculature are normal. ??Limited views of the upper abdomen and bones are normal. Impression Extensive enlarged mediastinal lymphadenopathy which is better visualized on the recent chest CT. ?? No discrete mass is present measure, however, a prominent superior mediastinum is neither greater than the maximum intrathoracic diameter or greater than 10 cm. If there are further clinical/research guidelines how to measure this conglomeration of lymph nodes, they can be provided to the Radiology department and an addendum to this report can be made. Film and interpretation reviewed by the attending Procedure Note Aditya Salgado MD - 10/14/2011 Examination CHEST ROUTINE PA+LAT Clinical History Is mediastinal mass > 0.33 maximum intrathoracic diameter while standing?Is mass measuring greater than 10cm in largest diameter? Comparison Chest radiographs on 09/12/[address] on 10/10/2011. Technique Standing PA and lateral chest radiograph. Findings Although there is no discrete mass, the multiple enlarged mediastinallymph nodes result in prominence of the right anterior mediastinum, superior mediastinum, and paratracheal soft tissues. The superior mediastinummeasures 8.5 cm in diameter however this includes the great vessels. The maximumintra thoracic diameter is 35 cm. There is no pneumothorax, pleural effusion, or focal pulmonary consolidation. The cardiac silhouette, and pulmonary vasculature are normal. Limited views of the upper abdomen and bones are normal. Impression Extensive enlarged mediastinal lymphadenopathy which is better visualizedon the recent chest CT. No discrete mass is present measure, however, a prominent superiormediastinum is neither greater than the maximum intrathoracic diameter or greater than10 cm. If there are further clinical/research guidelines how to measure this conglomeration of lymph nodes, they can be provided to the Radiologydepartment and an addendum to this report can be made. Film and interpretation reviewed by the attending Myron Cruz MD IMG DX ORDERABLES documented in this encounter Visit Diagnoses Diagnosis Hodgkin's lymphoma- Primary Hodgkin's disease, unspecified Hodgkin's lymphoma Hodgkin's disease, unspecified documented in this encounter Care Teams Typewriters Functional Tester Relationship Specialty Start Date End Date Arabella Villarreal MD [address] [place] [address] [address] [facility] [address] [place] [address] PCP - General 09/16/11 documented as of this encounter
--- OUTSIDE RECORDS SUMMARY | 2024-04-07 01:44 | XMS_ITS | Encounter Summary ---
[place] [address] Care Team Providers Care Alternative Dispute Resolution Mediator Name Role Phone Arabella Villarreal MD Primary Care Provider [phone] Encounter Details Date Type Department Care Team (Late st Contact Info) Description 09/25/2011 7:20 AM EDT Anesthesia Event [place] [id number] Austin Perdue MD Gallagher, John D, MD Anesthesia Record Procedure Summary Procedure Name Responsible Anesthesiologist Anesthesia Start Time Anesthesia Stop Time BIOPSY OR EXCISION OF LYMPH NODE(S), OPEN, DEEP CERVICAL NODES (WRVU 6.74) (Right: Neck) Austin Perdue MD 09/25/11 0720 09/25/11 0902 Events Date Time Event Comment 09/25/2011 0710 0720 Start 0902 Stop Meds * Agents No agents on file. * Blood No blood administrations on file. Lines, Drains, and Airways Type Details Placement Removal (RETIRED) Peripheral IV Line - Single Lumen 09/25/11; 0640; 09/25/11; 1250 09/25/11 0640 by Valerie Bruno RN 09/25/11 1250 by Renate Campos RN Urethral Catheter 09/25/11; 0740; indwelling double lumen catheter; latex; 16; inserted; 1; drainage bag to dependent drainage; 09/25/11; 0856 09/25/11 0740 by Migdalia Nation RN 09/25/11 0856 by Migdalia Nation RN (RETIRED) Peripheral IV Line - Single Lumen 09/25/11; 0753; 09/25/11; 1034 09/25/11 0753 by Migdalia Nation RN 09/25/11 1034 by Renate Campos RN Incision 09/25/11; 0757; neck ; 10/29/21 (LDA cleanup utility RA#[id number]); 1715 (LDA cleanup utility RA#[id number]) 09/25/11 0757 by Migdalia Nation RN 10/29/21 1715 by Edmund Whitlock documented in this encounter Social History Tobacco Use Types Packs/Day Years Used Date Smoking Tobacco: Never Smokeless Tobacco: Never Alcohol Use Standard Drinks/Week Comments No 0 (1 standard drink = 0.6 oz pur e alcohol) Sex and Gender Information Value Date Recorded Sex Assigned at Not on file Gender Identity Not on file Sexual Orientation Not on file documented as of this encounter OR Notes * Anesthesia Postprocedure Evaluation - Austin Perdue MD - 09/25/2011 11:53 AM EDT Patient: Chasity Gallo Procedure(s) Performed: Procedure(s): BIOPSY OR EXCISION OF LYMPH NODE(S), OPEN, DEEP CERVICAL NODES Patient location: PACU Post-op pain: Adequate analgesia Post-op nausea: nausea or vomiting an issue but being treated with medication Last Vitals: Filed Vitals: 09/25/11 1010 BP: 113/63 Pulse: 63 Temp: Resp: 16 Post-op cardiovascular and respiratory status: is stable Level of consciousness: awake, alert and oriented Complications: no apparent complications, tolerated the procedure well and no evidence of recall Fluid Status: normal * Anesthesia Preprocedure Evaluation - Christie Murray - 09/25/2011 6:50 AM EDT Anesthesia Evaluation Patient summary reviewed and Nursing notes reviewed No hx of anesthetic complications Airway Mallampati: I TM distance: >3 FB Neck ROM: full Dental - normal exam Pulmonary - negative ROS (-) asthma and recent URI Cardiovascular - negative ROS Exercise tolerance: good (-) hypertension Neuro/Psych - negative ROS GI/Hepatic/Renal - negative ROS (-) GERD Endo/Other Comments: Right mediastinal mass extending into right neck. Anemia (H/H 12/31). Abdominal Anesthesia Plan ASA 2 General with intravenous induction Pt had general anesthesia 2-3 weeks ago for toe sx, no issues with airway (was told she has class 1 airway so presume she has a tube). Recently had minor dysphagia after mass bled and she developedhematoma, but this has since resolved. Mild supraclavicular fullness noted on exam, but trachea is grossly midline. On CT, most of mass if to the right of trachea rather than ventral to it in mediastinum. Given these findings and recent airway success, I do not think awake intubation is nessesary. Plan standard IVinduction. Urine test negative today. Anesthetic plan and risks discussed with patient. Plan discussed with attending. documented in this encounter Miscellaneous Notes * Addendum Note - Deysi Grullon - 09/26/2011 11:08 AM EDT Addendum created 09/26/11 1108 by Deysi Grullon Modules edited:Anesthesia Events, Anesthesia Responsible Staff documented in this encounter Plan of Treatment Not on file documented as of this encounter Visit Diagnoses Not on filedocumented in this encounter Care Teams Alternative Dispute Resolution Mediator Relationship Specialty Start Date End Date Arabella Villarreal MD [address] [place] [place] [address] PCP - General 09/16/11 documented as of this encounter
--- OUTSIDE RECORDS SUMMARY | 2024-04-07 01:44 | XMS_ITS | Encounter Summary ---
Author Organization Formerly [facility] [place] [address] Care Team Providers Care Director Of Special Events Name Role Phone Arabella Villarreal MD Primary Care Provider [phone] Reason for Visit * Reason Comments Follow-up Encounter Details Date Type Department Care Team (Late st Contact Info) Description 10/04/2011 2:00 PM EDT Office Visit Hematology [place] [id number] Myron Cruz MD [facility] [address] HEMATOLOGY [place] [address] Hodgkin's disease (Primary Dx); Chemotherapy follow-up examination; Hodgkin's lymphoma Discharge Disposition: Home Social History [...] Sign Reading Time Taken Comments Blood Pressure 118/70 10/04/2011 2:06 PM EDT Pulse 68 10/04/2011 2:06 PM EDT Temperature 36.8 ??C (98.2 ??F) 10/04/2011 2:06 PM ED T Respiratory Rate 18 10/04/2011 2:06 PM EDT Oxygen Saturation 100% 10/04/2011 2:06 PM EDT Inhaled Oxygen Concentration - - Weight 90.9 kg (200 lb 6.4 oz) 10/04/2011 2:06 P M EDT Height 168.5 cm (5' 6.34) 10/04/2011 2:06 PM ED T Body Mass Index 32.02 10/04/2011 2:06 PM EDT documented in this encounter Progress Notes * Myron Cruz MD - 10/05/2011 2:16 PM EDT Hematology Consultation Note PCP: ARABELLA VILLARREAL MD Referral physician: ARABELLA VILLARREAL [address] [place] [id number] Courtney Garcia MD Cardiothoracic Surgery [place], [place] History of present illness: Vidhi Gallo is seen today in our hematology clinic at request of Dr. Garcia and Dr. Villarreal for evaluation and treatment of newly diagnosis Hodgkin's lymphoma. 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 She reports her swallowing was affected and noticed the swelling when she moved her neck. She had right neck pain at that time. She went to her local ED where a CT scan was performed, which showed a right neck mass extending into the chest, which at first appeared consistent with a hematoma, and she was transferred to [facility] for further evaluation. She denied any trauma tothe neck. Evaluation at [facility] included an MRI of the neck on September 12, 2011. This revealed a multilobulated, heterogeneously enhancing mass within the anterior mediastinum, which begins inferiorlyat the level and lateral to the right ventricle. It extends upward throughout the mediastinum and right neck. There is soft tissue edema enhancement in the right neck including the carotid sheath. There is a 30 x 39 x 48-mm cystic, necrotic, multiloculated fluid in the right neck with ring enhancement. The mass displaces the jugular vein anteriorly and narrows it along with severely narrowing in the superior vena cava. The trachea and right carotid are displaced to the left. She was discharged and ultimately was scheduled for a CT-guided biopsy. This was suggestive of a malignancy. The neck mass was accessed and biopsied by Dr. Garcia. This biopsy showed classical Hodgkin lymphoma, nodular sclerosing subtype. The cells stained positive for CD30, CD15, and PAX-5. They were negative for LCA, CD20, CD43, and ALK-1. She was diagnosed with classical Hodgkin lymphoma, nodular sclerosing subtype. She is referred for further workup, evaluation, and treatment. She denies fevers, chills, or night sweats. Interestingly, since fall 2010, she was found to have anemia. She was given a trial of iron with noeffect. Also, upon review of her blood work, she had a concurrent lymphopenia. Patient Active Problem List Diagnoses ??? Hodgkin's lymphoma STAGE __A IPS: Sed rate: Col Date: 09/25/2011 SURGICAL PATHOLOGY ---Pathologic Diagnosis--- Right neck mass biopsy ( A and B) : Classical Hodgkin Lymphoma, nodular sclerosis type. Past Medical History: 1. Obesity, which is now diet controlled. She used to weigh 266 pounds. She has lost quite a bit ofweight with diet and exercise. 2. She had an endoscopy in the upper GI tract on July 02, 2011, which showed no reflux. This was doneto evaluate her anemia, suspecting iron deficiency. 3. Vertigo in 2010. She had a CT scan of her head, which was nonrevealing. Past Surgical History: Toe surgery to remove a neuroma in September 2011. Medications: Multivitamins, ferrous sulfate. Allergies: No known drug allergies. Social History: She does not smoke. She drinks socially. There is no change in her lymph node nor chest pain after drinking alcohol. 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 Her menstrual cycle is approximately 35 days long. In the past she was thought to have PCOS; however, that diagnosis has not panned out. She reports she would still like to have more children. Family History: Her grandmother had colon cancer. Her maternal grandfather had pancreatic cancer and esophageal cancer. There is a history of heart disease in the family. Review of Systems: She reports headache, which is due to stress. She denies blurry vision. Currently she has no problems swallowing. She denies chest pain or shortness of breath. She denies nausea orvomiting. She has occasional loose stools, which she reports are due to nerves. She denies constipation. Physical Examination: BP 118/70 Pulse 68 Temp(Src) 36.8 ??C (98.2 ??F) (Oral) Resp 18 Ht 168.5 cm (5' 6.34) Wt90.9 kg (200 lb 6.4 oz) BMI 32.02 kg/m2 SpO2 100% LMP 09/06/2011 HEENT: Anicteric sclerae. Pupils equal, round, reactive to light. Extraocular movements intact. Mucous membranes are moist. Lymphnode survey of the neck reveals the surgical scar in the lower cervical/supraclavicular region; this is well healed. There is a firm mass posterior to the area of the scar. She has no palpable axillary lymphadenopathy. There is no palpable groin lymphadenopathy. Chest: Clear CV: S1S2 RRR Abdomen is soft, nontender, nondistended, normoactive bowel sounds. Extremities: No edema. Neurologic exam is grossly intact. Musculoskeletal exam: No vertebral tenderness. Skin exam: no rash Laboratory Data: Reviewed in eD-H. Further blood work will be done at the time of her staging workup. Assessment and Plan: Vidhi Gallo is a 31-year-old woman with newly diagnosed Hodgkin lymphoma. She has a neck mass and mediastinal mass, which is causing some anatomical displacement of her tracheaand carotid. She has a lymphopenia and an anemia. Today I discussed the staging workup that we need to do. We will perform a PET scan and a formal CTof her chest, abdomen, and pelvis as well as her neck. We will also get a staging bone marrow biopsy. I discussed with her the different stages of Hodgkin lymphoma. She is at least a stage II with a mediastinal mass. Should any lymph nodes be present and active below the diaphragm, she would be considered a stage III. If she has any other organ involvement such as lung, liver, or bone marrow, we would consider her stage IV. Next we discussed the treatment of Hodgkin lymphoma. All cases of Hodgkin lymphoma regardless of stage are considered curable. For the majority of cases the cure rates range from 80% to 90%. Her curerate would depend on her stage and some other prognostic variables. We went over the standard treatment of Hodgkin lymphoma, which consists of combination chemotherapywith ABVD. I also introduced the concept of a clinical trial, that is, testing the use of PET scans in determining whether a more intensive therapy is needed should ABVD not get her into a complete PET-based remissionafter two cycles. I briefly described the chemotherapy side effects of the drugs Adriamycin, bleomycin, dacarbazine, and vinblastine. She will return for the workup, which includes a PET scan, bone marrow biopsy, and laboratory work.We will get an echocardiogram as well as pulmonary function testing. I would like her to meet with our research nurse and to go over the clinical trials. Which ones she would be eligible for will depend on her stage. However, she seems very interested and motivated in participating in the trial after my lengthy discussion on the rationale. Thank you very much for referring Vidhi to my attention. I will keep you posted on her progress. Return to clinic after staging studies complete. We will arrange an appointment with our clinical trial research nurse. Myron Cruz MD Appeals Specialiststudio hand Section of Hematology/Oncology [facility] documented in this encounter Plan of Treatment Not on file documented as of this encounter Results * Lung Volumes (10/18/2011 9:03 AM EDT) Narrative 10/18/2011 9:03 AM EDT Pulmonary Function Test Interpretation (pertinent boxes checked) FEV1 is normal. ??FVC is normal. ??The FEV1/FVC ratio is normal. Lung volumes are normal except for a mild reduction in residual volume. Uncorrected single-breath diffusion capacity for CO was [x] normal [] reduced. Resting oxyhemoglobin saturation on air was [x] normal [] reduced Impression: Isolated reduction in residual volume of questionable significance. ?? Procedure Note Emery Prescott MD - 10/17/2011 8:21 AM EDT Pulmonary Function Test Interpretation (pertinent boxes checked) FEV1 is normal. FVC is normal. The FEV1/FVC ratio is normal. Lung volumes are normal except for a mild reduction in residual volume. Uncorrected single-breath diffusion capacity for CO was [x] normal []reduced. Resting oxyhemoglobin saturation on air was [x] normal [] reduced Impression: Isolated reduction in residual volume of questionablesignificance. Myron Cruz MD PROCEDURE/MINOR GOMEZ RGICAL ORDERABLES * PFT Screen (Pulmonary Function Test) (10/18/2011 9:03 AM EDT) Narrative 10/18/2011 9:03 AM EDT Pulmonary Function Test Interpretation (pertinent boxes checked) FEV1 is normal. ??FVC is normal. ??The FEV1/FVC ratio is normal. Lung volumes are normal except for a mild reduction in residual volume. Uncorrected single-breath diffusion capacity for CO was [x] normal [] reduced. Resting oxyhemoglobin saturation on air was [x] normal [] reduced Impression: Isolated reduction in residual volume of questionable significance. ?? Procedure Note Emery Prescott MD - 10/17/2011 8:21 AM EDT Pulmonary Function Test Interpretation (pertinent boxes checked) FEV1 is normal. FVC is normal. The FEV1/FVC ratio is normal. Lung volumes are normal except for a mild reduction in residual volume. Uncorrected single-breath diffusion capacity for CO was [x] normal []reduced. Resting oxyhemoglobin saturation on air was [x] normal [] reduced Impression: Isolated reduction in residual volume of questionablesignificance. Myron Cruz MD PROCEDURE/MINOR GOMEZ RGICAL ORDERABLES * Echo Transthoracic (Complete) (10/14/2011 10:58 AM EDT) Pathologist [facility] EF 69 HEARTLAB SYSTEM Anatomical Region Laterality Modality Other 10/14/2011 Narrative 10/14/2011 12:01 PM EDT Procedure: ? Transthoracic Echocardiogram Patient: ? ANA CHICASSILAS Spicer ?(Age): 1980(31) Med Rec#: ?[id number] ? Sex: ?F ? Site Loc: ?[facility] ? Ht / Wt: ??170(cm)/63(kg) Pt. Loc: ? Echo Lab ? BSA: ?1.72 Study Date: ?10/14/2011 ? Pt. Type: Outpatient Tape: ? Referring: Myron Cruz Rounding And Backing Machine Operator: Isabel Ervin Diagnosis: ??Neoplasm of Uncertain Behavior of other Specified Sites (238.8) CPT Code(s): ??Echo Full (00586), ??Spectral Doppler (67265), ??Color Doppler (04287), Indication(s): ??Chemotherapy-baseline Rhythm: Sinus HR ?BP ?114/60 ?? SUMMARY: 1. The left ventricular chamber size is normal. ??There is normal global left ventricular systolic function. ??Ejection fraction is estimated to be 65% by visual estimate and 69% using a monoplane Guzmán (semi-quantitative method). ??There are no left ventricular segmental wall motion abnormalities. 2. Doppler assessment is consistent with normal left sided filling pressure. 3. Right ventricular chamber size, wall thickness, and systolic function are within normal limits. 4. The left atrium is mildly dilated. ??The right atrium is mildly dilated. 5. See remainder of report for additional findings. FINDINGS: Left Ventricle ?The left ventricular chamber size is normal. ?Basal septal hypertrophy is observed. ?There is no evidence of LVOT obstruction. ?There is normal global left ventricular systolic function. ??Ejection fraction is estimated to be 65%. ?There are no left ventricular segmental wall motion abnormalities. ?Doppler assessment is consistent with normal left sided filling pressure. ?A false chord is observed in the left ventricle. Left Atrium ?The left atrium is mildly dilated. Right Ventricle ?Right ventricular chamber size, wall thickness, and systolic function are within normal limits. ?Pulmonary artery hypertension could not be assessed due to inadequate tricuspid regurgitation jet. ?The estimated right atrial pressure is 8 mmHg. Right Atrium ?The right atrium is mildly dilated. ?A prominent eustachian valve is noted in the right atrium. Aortic Valve ?The aortic valve is tricuspid.There may be a mild sinus of valvsalva aneurysm at the non-coronary cusps. ??This does not appear to be significant but there is some asymetry on short axis views of the aortic valve. ?There is no evidence of aortic valve thickening. ?There is no evidence of aortic valve stenosis. ?There is a trace of aortic regurgitation present. Mitral Valve ?The mitral valve appears normal in structure and function. ?There is trace mitral regurgitation present. Tricuspid Valve ?The tricuspid valve appears normal in structure and function. ?There is trace tricuspid regurgitation present. Pulmonic Valve ?The pulmonic valve appears normal in structure and function. ?There is trace pulmonic regurgitation present. Pericardium ?A trivial pericardial effusion is visualized. ?There is no echo evidence of pericardial tamponade. Aorta ?The aortic root is normal in size. ?The ascending aorta is normal in size. Pulmonary Artery ?The main pulmonary artery appears normal. Venous ?The inferior vena cava appears dilated. ?There is a greater than 50% respiratory change in the inferior vena cava dimension. Misc ?See remainder of report for additional findings. ?Two-dimensional echo, spectral Doppler and color Doppler performed. Wall Motion: Segment Name ?Rest ? Base-Anteroseptal ?? Normal ? Base-Anterior ? Normal ? Base-Anterolateral ??Normal ? Base-Posterolateral Normal ? Base-Inferior ? Normal ? Base-Inferoseptal ?? Normal ? Mid-Anteroseptal ?Normal ? Mid-Anterior ?Normal ? Mid-Anterolateral ?? Normal ? Mid-Posterolateral ??Normal ? Mid-Inferior ?Normal ? Mid-Inferoseptal ?Normal ? [place]-Septal ? Normal ? [place]-Anterior ? Normal ? [place]-Lateral ?Normal ? [place]-Inferior ? Normal ? [place]-Tip ?Normal ? Chambers ?Value ?Units (Range) ? LV EF Est ? 65 ? % (55 to 80) ? EF Mo-p Simp ?69 ? % (55 to 80) ? IVSd 2D ? 1.1 ?cm ? LVIDd 2D ?5.1 ?cm ? PWd 2D ?1 ?cm ? LVIDs 2D ?3.6 ?cm ? LVFS 2D ? 29 ? % ? LA area ? 23 ? cm2 (<21) ? RA area ? 24 ? cm2 (<18) ? Ao root ? 3.4 ?cm (2.1 to 3.6) ? Asc Ao ?3 ?cm (2 to 3.5) ? Mitral Valve ?Value ?Units (Range) ? E peak ?0.87 ? m/sec ? E/A ratio ? 2.1 ?ratio ? MVDT ?237 ?msec ? E1 ?0.16 ? m/sec ? E/E1 ?5.4 ?ratio ? Tricuspid/Pulmonic Valves ?Value ?Units (Range) ? RAP ? 8 ?mmHg ? PADP ?3 ?mmHg ? This report has been electronically signed by: Jose Alejandro MD ? 10/14/2011 12:00:59 Images reviewed and interpretation verified [facility] Cardiac Ultrasound Laboratory Procedure Note Jose Alejandro MD - 10/14/2011 Procedure: Transthoracic Echocardiogram Patient: ANA MOSHER Nayan WRAY(Age): 1980(31) Med Rec#: [id number] Sex: F Site Loc: [facility] Ht / Wt: 170(cm)/63(kg) Pt. Loc: Echo Lab BSA: 1.72 Study Date: 10/14/2011 Pt. Type: Outpatient Tape: Referring: Myron Cruz Rounding And Backing Machine Operator: Isabel Ervin Diagnosis: Neoplasm of Uncertain Behavior of other Specified Sites (238.8) CPT Code(s): Echo Full (94097), Spectral Doppler (58891), Color Doppler (14510), Indication(s): Chemotherapy-baseline Rhythm: Sinus HR BP 114/60 SUMMARY: 1. The left ventricular chamber size is normal. There is normal global left ventricular systolic function. Ejection fraction is estimated to be 65% by visual estimate and 69% using a monoplane Guzámn (semi-quantitative method). There are no left ventricular segmental wall motion abnormalities. 2. Doppler assessment is consistent with normal left sided filling pressure. 3. Right ventricular chamber size, wall thickness, and systolic function are within normal limits. 4. The left atrium is mildly dilated. The right atrium is mildly dilated. 5. See remainder of report for additional findings. FINDINGS: Left Ventricle The left ventricular chamber size is normal. Basal septal hypertrophy is observed. There is no evidence of LVOT obstruction. There is normal global left ventricular systolic function. Ejection fraction is estimated to be 65%. There are no left ventricular segmental wall motion abnormalities. Doppler assessment is consistent with normal left sided filling pressure. A false chord is observed in the left ventricle. Left Atrium The left atrium is mildly dilated. Right Ventricle Right ventricular chamber size, wall thickness, and systolic function are within normal limits. Pulmonary artery hypertension could not be assessed due to inadequate tricuspid regurgitation jet. The estimated right atrial pressure is 8 mmHg. Right Atrium The right atrium is mildly dilated. A prominent eustachian valve is noted in the right atrium. Aortic Valve The aortic valve is tricuspid.There may be a mild sinus of valvsalva aneurysm at the non-coronary cusps. This does not appear to be significant but there is some asymetry on short axis views of the aortic valve. There is no evidence of aortic valve thickening. There is no evidence of aortic valve stenosis. There is a trace of aortic regurgitation present. Mitral Valve The mitral valve appears normal in structure and function. There is trace mitral regurgitation present. Tricuspid Valve The tricuspid valve appears normal in structure and function. There is trace tricuspid regurgitation present. Pulmonic Valve The pulmonic valve appears normal in structure and function. There is trace pulmonic regurgitation present. Pericardium A trivial pericardial effusion is visualized. There is no echo evidence of pericardial tamponade. Aorta The aortic root is normal in size. The ascending aorta is normal in size. Pulmonary Artery The main pulmonary artery appears normal. Venous The inferior vena cava appears dilated. There is a greater than 50% respiratory change in the inferior vena cava dimension. Misc See remainder of report for additional findings. Two-dimensional echo, spectral Doppler and color Doppler performed. Wall Motion: Segment Name Rest Base-Anteroseptal Normal Base-Anterior Normal Base-Anterolateral Normal Base-Posterolateral Normal Base-Inferior Normal Base-Inferoseptal Normal Mid-Anteroseptal Normal Mid-Anterior Normal Mid-Anterolateral Normal Mid-Posterolateral Normal Mid-Inferior Normal Mid-Inferoseptal Normal [place]-Septal Normal [place]-Anterior Normal [place]-Lateral Normal [place]-Inferior Normal [place]-Tip Normal Chambers Value Units (Range) LV EF Est 65 % (55 to 80) EF Mo-p Simp 69 % (55 to 80) IVSd 2D 1.1 cm LVIDd 2D 5.1 cm PWd 2D 1 cm LVIDs 2D 3.6 cm LVFS 2D 29 % LA area 23 cm2 (<21) RA area 24 cm2 (<18) Ao root 3.4 cm (2.1 to 3.6) Asc Ao 3 cm (2 to 3.5) Mitral Valve Value Units (Range) E peak 0.87 m/sec E/A ratio 2.1 ratio MVDT 237 msec E1 0.16 m/sec E/E1 5.4 ratio Tricuspid/Pulmonic Valves Value Units (Range) RAP 8 mmHg PADP 3 mmHg This report has been electronically signed by: Jose Alejandro MD 10/14/2011 12:00:59 Images reviewed and interpretation verified [facility] Cardiac Ultrasound Laboratory Myron Cruz MD ECHO ORDERABLES * Beta HCG, quantitative (10/10/2011 11:23 AM EDT) Beta Human Chorionic Gonadotropin, Quantitative <1 mlU/ML [facility] Comment: REFERENCE RANGES NON- FEMALE: ??Less than 5 mIU/mL POSTMENOPAUSAL FEMALE: ??Less than 8 mIU/mL ? -- FEMALES -- Weeks of ? HCG range ??(mIU/mL) ? 3 weeks ? 5.8 - 71.2 ? 4 weeks ? 9.5 - 750 ? 5 weeks ? 217 - 7,138 ? 6 weeks ? 158 - 31,795 ? 7 weeks ? 3,697 - 163,563 ? 8 weeks ? 32,065 - 149,571 ? 9 weeks ? 63,803 - 151,410 ?10 weeks ? 46,509 - 186,977 ?12 weeks ? 27,832 - 210,612 ?14 weeks ? 13,950 - 62,530 ?15 weeks ? 12,039 - 70,971 ?16 weeks ? 9,040 - 56,451 ?17 weeks ? 8,175 - 55,868 ?18 weeks ? 8,099 - 58,176 Blood specimen (specimen) 10/10/2011 11:23 AM EDT 10/10/2011 11:37 AM EDT Narrative Resulting Agency Comment Spec In Lab Myron Cruz MD CHEMISTRY ORDERABL ES Performing Organization Address [facility] de Phone Number [facility] * (ABNORMAL) Sedimentation rate (10/10/2011 11:23 AM EDT) Sedimentation Rate Automated 68(H) 0 - 20 mm/hr [facility] Blood specimen (specimen) 10/10/2011 11:23 AM EDT 10/10/2011 11:37 AM EDT Narrative Resulting Agency Comment Spec In Lab Myron Cruz MD HEMATOLOGY ORDERAB LES Performing Organization Address [facility] de Phone Number [facility] * (ABNORMAL) Comprehensive metabolic panel (non-fasting) (10/10/2011 11:23 AM EDT) Glucose 88 60 - 199 mg/dL [facility] Comment:Diabetes: >=200 mg/d L plus symptoms Blood Urea Nitrogen 8 8 - 18 mg/dL [facility] Creatinine 0.68(L) 0.70 - 1.20 mg/dL [facility] Comment: Please note that the pediatric reference intervals supplied above were not validated at [facility]. Results from pediatric patients should be interpreted in conjunction to the patient's age, height and muscle mass. Sodium 135 135 - 145 mmol/L [facility] Potassium 4.0 3.5 - 5.0 mmol/L [facility] Comment: Please note: ??Patients with WBC >100,000 may have falsely elevated Potassium levels. ??For accurate Potassium quantification in these patients send serum separator tube (gold top) for subsequent determinations. ??Contact the Clinical Chemistry Laboratory if there are any questions. Chloride 101 98 - 107 mmol/L [facility] Carbon Dioxide 27 22 - 31 mmol/L [facility] Anion Gap 7 5 - 15 mmol/L [facility] Calcium 9.3 8.5 - 10.5 mg/dL [facility] Protein, Total 7.3 6.4 - 8.3 gm/dL [facility] Albumin 4.2 3.2 - 5.2 gm/dL [facility] Aspartate Aminotransferase 9 0 - 30 unit/L [facility] Alanine Aminotransferase 6 0 - 30 unit/L [facility] Alkaline Phosphatase 62 40 - 104 unit/L [facility] Bilirubin, [...] J Am Soc Nephrol;6:1963-72. Blood specimen (specimen) 10/10/2011 11:23 AM EDT 10/10/2011 11:37 AM EDT Narrative Resulting Agency Comment Spec In Lab Myron Cruz MD CHEMISTRY ORDERABL ES [facility] * (ABNORMAL) CBC (with Diff) (10/10/2011 11:23 AM EDT) White Blood Cell 6.0 4.0 - 10.0 x10(3)/mc L [facility] Red Blood Cell 3.99 3.93 - 5.22 x10(6)/mc L [facility]ILLENNI[facility] Hemoglobin 10.6(L) 11.2 - 15.7 gm/dL [facility] Hematocrit 32.6(L) 34.0 - 45.0 % [facility]ILLENNI[facility] Mean Cell Volume 81.7 79.0 - 94.0 fL [facility]ILLENNI[facility] Mean Cell Hemoglobin 26.6 26.6 - 32.2 pg [facility]ILLENNI[facility] Mean Cell Hemoglobin Concentration 32.5 32.0 - 36.5 gm/dL [facility] MILLENNIUM Platelet 365 145 - 370 x10(3)/mc L [facility]ILLENNIUM RDW Standard Deviation 41.0 35.0 - 46.0 fL [facility] MILLENNIUM RDW coefficient of variation 13.7 10.9 - 14.4 % [facility] MILLENNIUM Mean Platelet Volume 8.6(L) 9.0 - 12.0 fL [facility] Blood specimen (specimen) 10/10/2011 11:23 AM EDT 10/10/2011 11:37 AM EDT Narrative Resulting Agency Comment Spec In Lab Myron Cruz MD HEMATOLOGY ORDERAB LES MAGDALENA CARTER documented in this encounter Visit Diagnoses Diagnosis Hodgkin's disease- Primary Hodgkin's disease, unspecified Chemotherapy follow-up examination Hodgkin's lymphoma Hodgkin's disease, unspecified Chemotherapy follow-up examination Hodgkin lymphoma- Primary Hodgkin's disease, unspecified documented in this encounter Care Teams Director Of Special Events Relationship Specialty Start Date End Date Arabella Villarreal MD [address] [place] [address] PCP - General 09/16/11 documented as of this encounter
--- OUTSIDE RECORDS SUMMARY | 2024-04-07 01:44 | XMS_ITS | Encounter Summary ---
Author Organization [facility] [place] [address] Care Team Providers Care Teletype Or Varitype Keyboard Operator Name Role Phone Arabella Villarreal MD Primary Care Provider [phone] Encounter Details Date Type Department Care Team (Late st Contact Info) Description 10/17/2011 8:30 AM EDT Follow-Up [place]ology [place] [phone] Myron Cruz MD [facility] [address] [place] [address] Hodgkin's lymphoma (Primary Dx) Discharge Disposition: Home [...] Sign Reading Time Taken Comments Blood Pressure 122/62 10/17/2011 8:38 AM EDT Pulse 79 10/17/2011 8:38 AM EDT Temperature 36.8 ??C (98.2 ??F) 10/17/2011 8:38 AM ED T Respiratory Rate 16 10/17/2011 8:38 AM EDT Oxygen Saturation 99% 10/17/2011 8:38 AM EDT Inhaled Oxygen Concentration - - Weight 91.3 kg (201 lb 4.5 oz) 10/17/2011 8:38 A M EDT Height 168.8 cm (5' 6.46) 10/17/2011 8:38 AM ED T Body Mass Index 32.04 10/17/2011 8:38 AM EDT documented in this encounter Progress Notes * Myron Cruz MD - 10/17/2011 11:09 AM EDT HEMATOLOGY FOLLOW UP NOTE Chasity [...] to encounter Medication Sig Dispense Refill ??? ferrous gluconate 325 mg (37.5 mg iron) tablet Take 325 mg by mouth daily (with breakfast). ??? ranitidine (ZANTAC) 150 mg tablet Take 150 mg by mouth daily as needed. Indications: Gastroesophageal Reflux ? ? vitamin 27 & [id number] 60 mg iron-1 mg tablet Take 1 tablet by mouth daily. ??? prochlorperazine (COMPAZINE) 5 mg tablet Take 2 tablets by mouth every 6 hours as needed for Nausea. 30 tablet 0 ??? ondansetron (ZOFRAN) 4 mg tablet Take [...] by mouth every 6 hours as needed. Current facility-administered medications ordered prior to encounter Medication Dose Route Frequency Provider Last Rate Last Dose ??? acetaminophen (TYLENOL) tablet 650 mg 650 mg Oral Once Myron Cruz MD ??? hydrocortisone sodium succinate (PF) (SOLU-CORTEF) injection 100 mg 100 mg Intravenous Once Myron Cruz MD ??? palonosetron (ALOXI) injection 0.25 mg 0.25 mg Intravenous Once Myron Cruz MD ??? fosaprepitant (EMEND) 150 mg in sodium chloride 0.9% 155 mL infusion 150 mg Intravenous Once Myron Cruz MD ??? LORazepam (ATIVAN) tablet 0.5-1 mg 0.5-1 mg Oral Q4H PRN Myron Cruz MD Last Dose: 1 mgat 10/17/11 1106 ??? prochlorperazine (COMPAZINE) tablet 5-10 mg 5-10 mg Oral Q6H PRN Myron Cruz MD ??? LORazepam (ATIVAN) injection 0.5-1 mg 0.5-1 mg Intravenous Q4H PRN Myron Cruz MD ??? DOXOrubicin (ADRIAMYCIN) injection 52 mg 52 mg Intravenous Once Myron Cruz MD ??? bleomycin (BLEOCIN) 21 Units in sodium chloride 0.9% 57 mL chemo infusion 21 Units Intravenous Once Myron Cruz MD ??? vinBLAStine (VELBAN) chemo injection 13 mg 13 mg Intravenous Once Myron Cruz MD ??? dacarbazine (DTIC) 775 mg in dextrose 5% 327.5 mL chemo infusion 775 mg Intravenous Once Myron Cruz MD Interim History: Chasity Gallo is here for C1D1 ABVD on clincal trial. Review of Systems: Hematological and Lymphatic ROS: negative Energy level: good Pain: none Appetite: good Fevers/chills/sweats: No Bruising/bleeding/melena: No Recent infections: No Nausea/vomiting/diarrhea/constipation: No SOB/GIBSON/chest pain: No Change in adenopathy or other masses: No Unexpected weight loss or gain: No Skin rashes or petechiae: No Other systems: No additional positive findings A 12-pt review of systems was performed and was otherwise negative except for above. Physical Exam: BP 122/62 Pulse 79 Temp(Src) 36.8 ??C (98.2 ??F) (Oral) Resp 16 Ht 168.8 cm (5' 6.46) Wt91.3 kg (201 lb 4.5 oz) BMI 32.04 kg/m2 SpO2 99% LMP 09/06/2011 Gen:well appearing, in no acute distress HEENT: PERRL, no oral lesions LN survey: no palp neck LN, and Chest: clear to ausculatation bilaterally CV: S1S2 RRR Abd: soft, non-tender, no hepatosplenomegaly Ext: no edema Neuro: grossly intact MS: no bony tenderness Recent Results (from the past 72 hour(s)) CBC (WITH DIFF) Component Value Range ??? WBC 6.6 4.0 - 10.0 (x10(3)/mcL) ??? RBC 3.54 (*) 3.93 - 5.22 (x10(6)/mcL) ??? Hemoglobin 9.7 (*) 11.2 - 15.7 (gm/dL) ??? Hematocrit 29.9 (*) 34.0 - 45.0 (%) ??? MCV 84.5 79.0 - 94.0 (fL) ??? MCH 27.4 26.6 - 32.2 (pg) ??? MCHC 32.4 32.0 - 36.5 (gm/dL) ??? Platelets 361 145 - 370 (x10(3)/mcL) ??? RDWSD 43.8 35.0 - 46.0 (fL) ??? RDWCV 14.2 10.9 - 14.4 (%) ??? MPV 8.8 (*) 9.0 - 12.0 (fL) COMPREHENSIVE METABOLIC PANEL (NON-FASTING) Component Value Range ??? Glucose Lvl 85 60 - 199 (mg/dL) ??? BUN 8 8 - 18 (mg/dL) ??? Creatinine 0.67 (*) 0.70 - 1.20 (mg/dL) ??? Sodium 141 135 - 145 (mmol/L) ??? Potassium 4.1 3.5 - 5.0 (mmol/L) ??? Chloride 107 98 - 107 (mmol/L) ??? CO2 27 22 - 31 (mmol/L) ??? Anion Gap 7 5 - 15 (mmol/L) ??? Calcium 9.0 8.5 - 10.5 (mg/dL) ??? Total Protein 6.8 6.4 - 8.3 (gm/dL) ??? Albumin 3.9 3.2 - 5.2 (gm/dL) ??? AST 9 0 - 30 (unit/L) ??? ALT 6 0 - 30 (unit/L) ??? Alk Phos 55 40 - 104 (unit/L) ??? Total Bilirubin 0.2 0.2 - 1.3 (mg/dL) ??? Bili, Direct 0.1 0.0 - 0.3 (mg/dL) ? ? Estimated GFR >60 >=60 DIFFERENTIAL, AUTOMATED Component Value Range ??? Neutrophils % 78.9 (*) 34.0 - 71.0 (%) ??? Neutr Abs (ANC) 5.19 1.50 - 6.30 (x10(3)/mcL) ??? Lymphocytes % 11.4 (*) 19.0 - 53.0 (%) ??? Lymphocytes Abs 0.8 (*) 1.0 - 3.6 (x10(3)/mcL) ??? Monocytes % 6.1 4.0 - 13.0 (%) ??? Monocyte Abs 0.4 0.2 - 1.0 (x10(3)/mcL) ??? Eosinophils % 3.0 0.0 - 7.0 (%) ??? Eosinophils Abs 0.2 0.0 - 0.5 (x10(3)/mcL) ??? Basophils % 0.6 0.0 - 2.0 (%) ??? Basophils Abs 0.0 0.0 - 0.2 (x10(3)/mcL) ??? Immature Gran % 0.00 0.00 - 0.66 (%) ??? Maryann Gran Abs 0.00 0.00 - 0.05 (x10(3)/mcL) Assessment/Plan (by problem) Hodgkin's lymphoma - MYRON CRUZ MD 10/17/11 11:12 AM Signed -ECHO, PFTS were reviewed. Permissive for chemotherapy to begin -Start ABVD standard doses on protocol -patient signed consent -all questions answered at time of visit -RTC in 2 weeks Time with patient: 25 min Time counselin min Myron Cruz MD Signals Intelligence [facility] receiving clerk Section of Hematology/Oncology [facility] documented in this encounter Miscellaneous Notes * Assessment & Plan Note - Myron Cruz MD - 10/17/2011 11:12 AM EDT Associated Problem(s): Hodgkin's lymphoma -ECHO, PFTS were reviewed. Permissive for chemotherapy to begin -Start ABVD standard doses on protocol -patient signed consent -all questions answered at time of visit -RTC in 2 weeks documented in this encounter Plan of Treatment Not on file documented as of this encounter Procedures Procedure Name Priority Date/Time Associated Diagnosis Comments DIFFERENTIAL, AUTOMATED STAT 10/17/2011 9:26 AM EDT CBC (WITH DIFF) STAT 10/17/2011 9:26 AM EDT Hodgkin's lymphoma COMPREHENSIVE METABOLIC PANEL STAT 10/17/2011 9:26 AM EDT Hodgkin's lymphoma documented in this encounter Results * (ABNORMAL) DIFFERENTIAL, AUTOMATED (10/17/2011 9:26 AM EDT) Neutrophil % 78.9(H) 34.0 - 71.0 % CERNER MILLENNIUM Neutrophil Absolute 5.19 1.50 - 6.30 x10(3)/mc L CERNER MILLENNIUM Lymph % 11.4(L) 19.0 - 53.0 % CERNER MILLENNIUM Lymphocytes Abs 0.8(L) 1.0 - 3.6 x10(3)/mc L CERNER MILLENNIUM Monocyte % 6.1 4.0 - 13.0 % CERNER MILLENNIUM Monocyte Abs 0.4 0.2 - 1.0 x10(3)/mc L CERNER MILLENNIUM Eos % 3.0 0.0 - 7.0 % CERNER MILLENNIUM Eosinophils Abs 0.2 0.0 - 0.5 x10(3)/mc L CERNER MILLENNIUM Basophil % 0.6 0.0 - 2.0 % CERNER MILLENNIUM Baso [...] x10(3)/mc L CERNER MILLENNIUM Blood specimen (specimen) 10/17/2011 9:26 AM EDT 10/17/2011 9:35 AM EDT Myron Cruz MD HEMATOLOGY ORDERAB LES CERNER MILLENNIUM * (ABNORMAL) Comprehensive metabolic panel (non-fasting) (10/17/2011 9:26 AM EDT) Glucose 85 60 - 199 mg/dL CERNER MILLENNIUM Comment:Diabetes: >=200 mg/d L plus symptoms Blood Urea Nitrogen 8 8 - 18 mg/dL CERNER MILLENNIUM Creatinine 0.67(L) 0.70 - 1.20 mg/dL CERNER MILLENNIUM Comment: Please note that the pediatric reference intervals supplied above were not validated at [facility]. Results from pediatric patients should be interpreted in conjunction to the patient's age, height and muscle mass. Sodium 141 135 - 145 mmol/L CERNER MILLENNIUM Potassium [...] 6.4 - 8.3 gm/dL CERNER MILLENNIUM Albumin 3.9 3.2 - 5.2 gm/dL CERNER MILLENNIUM Aspartate Aminotransferase 9 0 - 30 unit/L CERNER MILLENNIUM Alanine Aminotransferase 6 0 - 30 unit/L CERNER MILLENNIUM Alkaline Phosphatase 55 40 - 104 unit/L CERNER MILLENNIUM Bilirubin, [...] J Am Soc Nephrol;6:1963-72. Blood specimen (specimen) 10/17/2011 9:26 AM EDT 10/17/2011 9:35 AM EDT Narrative Resulting Agency Comment Spec In Lab Myron Cruz MD CHEMISTRY ORDERABL ES Performing Organization Address [facility] Co de Phone Number CERNER MILLENNIUM * (ABNORMAL) CBC (with Diff) (10/17/2011 9:26 AM EDT) White Blood Cell 6.6 4.0 - 10.0 x10(3)/mc L CERNER MILLENNIUM Red Blood Cell 3.54(L) 3.93 - 5.22 x10(6)/mc L CERNER MILLENNIUM Hemoglobin 9.7(L) 11.2 - 15.7 gm/dL CERNER MILLENNIUM Hematocrit 29.9(L) 34.0 - 45.0 % CERNER MILLENNIUM Mean Cell Volume 84.5 79.0 - 94.0 fL CERNER MILLENNIUM Mean Cell Hemoglobin 27.4 26.6 - 32.2 pg CERNER MILLENNIUM Mean Cell Hemoglobin Concentration 32.4 32.0 - 36.5 gm/dL CERNER MILLENNIUM Platelet 361 145 - 370 x10(3)/mc L CERNER MILLENNIUM RDW Standard Deviation 43.8 35.0 - 46.0 fL CERNER MILLENNIUM RDW coefficient of variation 14.2 10.9 - 14.4 % CERNER MILLENNIUM Mean Platelet Volume 8.8(L) 9.0 - 12.0 fL CERNER MILLENNIUM Blood specimen (specimen) 10/17/2011 9:26 AM EDT 10/17/2011 9:35 AM EDT Narrative Resulting Agency Comment Spec In Lab Myron Cruz MD HEMATOLOGY ORDERAB LES CERAZEB SARMIENTOIUM documented in this encounter Visit Diagnoses Diagnosis Hodgkin's lymphoma- Primary Hodgkin's disease, unspecified documented in this encounter Care Teams Teletype Or Varitype Keyboard Operator Relationship Specialty Start Date End Date Arabella Villarreal MD [address] [place] [address] PCP - General 09/16/11 documented as of this encounter
--- OUTSIDE RECORDS SUMMARY | 2024-04-07 01:44 | XMS_ITS | Encounter Summary ---
Author Organization [facility] [place] [address] Care Team Providers Care Custodial Manager Name Role Phone Arabella Villarreal MD Primary Care Provider [phone] Encounter Details Date Type Department Care Team (Late st Contact Info) Description 10/09/2011 Orders Only Hematology [place] [address] Myron Cruz MD [facility] [address] [place] [address] Hodgkin's disease (Primary Dx) Social History Tobacco [...] documented as of this encounter Results * Hepatitis C Antibody (10/10/2011 11:23 AM EDT) Pathologist [facility] [place] Hepatitis C Antibody Negative Negative [facility] Blood specimen (specimen) 10/10/2011 11:23 AM EDT 10/10/2011 11:37 AM EDT Narrative Resulting Agency Comment Spec In Lab Myron Cruz MD CHEMISTRY ORDERABL ES Performing Organization Address [facility] de Phone Number [facility] * Hepatitis B Surface Antigen (10/10/2011 11:23 AM EDT) Hepatitis B Surface Antigen Negative Negative [facility] Blood specimen (specimen) 10/10/2011 11:23 AM EDT 10/10/2011 11:37 AM EDT Narrative Resulting Agency Comment Spec In Lab Myron Cruz MD CHEMISTRY ORDERABL ES Performing Organization Address [facility] de Phone Number [facility] * Hepatitis B Core Antibody, Total (10/10/2011 11:23 AM EDT) Hepatitis B Core Antibody Negative Negative [facility] Blood specimen (specimen) 10/10/2011 11:23 AM EDT 10/10/2011 11:37 AM EDT Narrative Resulting Agency Comment Spec In Lab Myron Cruz MD CHEMISTRY ORDERABL ES Performing Organization Address [facility] de Phone Number [facility] * HIV (10/10/2011 11:23 AM EDT) HIV 1/2 Ab Negative [facility] Blood specimen (specimen) 10/10/2011 11:23 AM EDT 10/10/2011 11:37 AM EDT Narrative Resulting Agency Comment Spec In Lab Myron Cruz MD CHEMISTRY ORDERABL ES Performing Organization Address [facility] Co de Phone Number [facility] * Lactate Dehydrogenase (10/10/2011 11:23 AM EDT) Lactate Dehydrogenase 112 110 - 220 unit/L [facility] Blood specimen (specimen) 10/10/2011 11:23 AM EDT 10/10/2011 11:37 AM EDT Narrative Resulting Agency Comment Spec In Lab Myron Cruz MD CHEMISTRY ORDERABL ES Performing Organization Address [facility] Co de Phone Number MAGDALENA CARTER * Uric acid (10/10/2011 11:23 AM EDT) Uric Acid 3.8 2.5 - 6.5 mg/dL [facility] Blood specimen (specimen) 10/10/2011 11:23 AM EDT 10/10/2011 11:37 AM EDT Narrative Resulting Agency Comment Spec In Lab Myron Cruz MD CHEMISTRY ORDERABL ES Performing Organization Address [facility] de Phone Number MAGDALENA CARTER documented in this encounter Visit Diagnoses Diagnosis Hodgkin's disease- Primary Hodgkin's disease, unspecified documented in this encounter Care Teams Custodial Manager Relationship Specialty Start Date End Date Arabella Villarreal MD [address] [place] [address] PCP - General 09/16/11 documented as of this encounter
--- OUTSIDE RECORDS SUMMARY | 2024-04-07 01:44 | XMS_ITS | Encounter Summary ---
Author Organization [facility] Address [facility] [place] [address] Care Team Providers Care Veterinary Radiologist Name Role Phone Arabella Villarreal MD Primary Care Provider [phone] Encounter Details Date Type Department Care Team (Latest Contact Info) Description 10/10/2011 10:34 AM EDT - 10/10/2011 11:59 PM EDT Hospital [place] [phone] CLINIC, Myron Denney MD [facility] HEMATOLOGY [place] [address] Hodgkin's disease; Hodgkin's disease Discharge Disposition: Home Social History Tobacco Use [...] Gastroesophageal Reflux 04/02/19 23 vitamin 27 & [id number] 60 mg iron-1 mg tablet Take 1 tablet by mouth daily. 04/02/2022 documented as of this encounter Miscellaneous Notes * Miscellaneous - Provider, Scanning - 10/16/2011 9:09 AM EDT documented in this encounter Plan of Treatment Not on file documented as of this encounter Procedures Procedure Name Priority Date/Time Associated Diagnosis Comments DIFFERENTIAL, AUTOMATED STAT 10/10/2011 11:23 AM EDT HEPATITIS C ANTIBODY STAT 10/10/2011 11:23 AM EDT Hodgkin's disease HEPATITIS B CORE ANTIBODY, TOTAL STAT 10/10/2011 11:23 AM EDT Hodgkin's disease HIV SCREEN, 4TH GENERATION ([facility]/CGP/APD/NLH)PERF ORMABLE STAT 10/10/2011 11:23 AM EDT Hodgkin's disease HEPATITIS B SURFACE ANTIGEN STAT 10/10/2011 11:23 AM EDT Hodgkin's disease SEDIMENTATION RATE STAT 10/10/2011 11 :23 AM EDT Hodgkin's disease CBC (WITH DIFF) STAT 10/10/2011 11:23 AM EDT Hodgkin's disease BETA HCG, QUANTITATIVE STAT 2 11:23 AM EDT Hodgkin's disease URIC ACID STAT 10/10/2011 11:23 AM EDT Hodgkin's disease LACTATE DEHYDROGENASE STAT 10/10/2011 11:23 AM EDT Hodgkin's disease COMPREHENSIVE METABOLIC PANEL STAT 10/10/2011 11:23 AM EDT Hodgkin's disease documented in this encounter Results * (ABNORMAL) DIFFERENTIAL, AUTOMATED (10/10/2011 11:23 AM EDT) Neutrophil % 73.1(H) 34.0 - 71.0 % CERNER MILLENNIUM Neutrophil Absolute 4.42 1.50 - 6.30 x10(3)/mc L CERNER MILLENNIUM Lymph % 17.2(L) 19.0 - 53.0 % CERNER MILLENNIUM Lymphocytes Abs 1.0 1.0 - 3.6 x10(3)/mc L CERNER MILLENNIUM Monocyte % 6.0 4.0 - 13.0 % CERNER MILLENNIUM Monocyte Abs 0.4 0.2 - 1.0 x10(3)/mc L CERNER MILLENNIUM Eos % 2.8 0.0 - 7.0 % CERNER MILLENNIUM Eosinophils Abs 0.2 0.0 - 0.5 x10(3)/mc L CERNER MILLENNIUM Basophil % 0.7 0.0 - 2.0 % CERNER MILLENNIUM Baso [...] x10(3)/mc L CERNER MILLENNIUM Blood specimen (specimen) 10/10/2011 11:23 AM EDT 10/10/2011 11:37 AM EDT Myron Cruz MD HEMATOLOGY ORDERAB LES CERNER MILLENNIUM * Beta HCG, quantitative (10/10/2011 11:23 AM EDT) Beta Human Chorionic Gonadotropin, Quantitative <1 mlU/ML [facility] Comment: REFERENCE RANGES NON- FEMALE: ??Less than [...] MD CHEMISTRY ORDERABL ES Performing Organization Address [facility] de Phone Number [facility] * Hepatitis C Antibody (10/10/2011 11:23 AM EDT) Hepatitis C Antibody Negative Negative [facility] Blood specimen (specimen) 10/10/2011 11:23 AM EDT 10/10/2011 11:37 AM EDT Narrative Resulting Agency Comment Spec In Lab Myron Cruz MD CHEMISTRY ORDERABL ES Performing Organization Address [facility] de Phone Number [facility] * Hepatitis B Surface Antigen (10/10/2011 11:23 AM EDT) Hepatitis B Surface Antigen Negative Negative [facility] Blood specimen (specimen) 10/10/2011 11:23 AM EDT 10/10/2011 11:37 AM EDT Narrative Resulting Agency Comment Spec In Lab Myron Cruz MD CHEMISTRY ORDERABL ES Performing Organization Address [facility] Phone Number [facility] * Hepatitis B Core Antibody, Total (10/10/2011 11:23 AM EDT) Hepatitis B Core Antibody Negative Negative [facility] Blood specimen (specimen) 10/10/2011 11:23 AM EDT 10/10/2011 11:37 AM EDT Narrative Resulting Agency Comment Spec In Lab Myron Cruz MD CHEMISTRY ORDERABL ES Performing Organization Address [facility] de Phone Number [facility] * HIV (10/10/2011 11:23 AM EDT) HIV 1/2 Ab Negative [facility] Blood specimen (specimen) 10/10/2011 11:23 AM EDT 10/10/2011 11:37 AM EDT Narrative Resulting Agency Comment Spec In Lab Myron Cruz MD CHEMISTRY ORDERABL ES Performing Organization Address [facility] Phone Number [facility] * Lactate Dehydrogenase (10/10/2011 11:23 AM EDT) Lactate Dehydrogenase 112 110 - 220 unit/L [facility] Blood specimen (specimen) 10/10/2011 11:23 AM EDT 10/10/2011 11:37 AM EDT Narrative Resulting Agency Comment Spec In Lab Myron Cruz MD CHEMISTRY ORDERABL ES Performing Organization Address [facility] Co de Phone Number [facility] * Uric acid (10/10/2011 11:23 AM EDT) Uric Acid 3.8 2.5 - 6.5 mg/dL CERNER MILLENNIUM Blood specimen (specimen) 10/10/2011 11:23 AM EDT 10/10/2011 11:37 AM EDT Narrative Resulting Agency Comment Spec In Lab Myron Cruz MD CHEMISTRY ORDERABL ES Performing Organization Address [facility]/ZIP Co de Phone Number CERNER MILLENNIUM * (ABNORMAL) Sedimentation rate (10/10/2011 11:23 AM EDT) Sedimentation Rate Automated 68(H) 0 - 20 mm/hr CERNER MILLENNIUM Blood specimen (specimen) 10/10/2011 11:23 AM EDT 10/10/2011 11:37 AM EDT Narrative Resulting Agency Comment Spec In Lab Myron Cruz MD HEMATOLOGY ORDERAB LES Performing Organization Address [facility] Co de Phone Number CERNER MILLENNIUM * (ABNORMAL) Comprehensive metabolic panel (non-fasting) (10/10/2011 11:23 AM EDT) Glucose 88 60 - 199 mg/dL CERNER MILLENNIUM Comment:Diabetes: >=200 mg/d L plus symptoms Blood Urea Nitrogen 8 8 - 18 mg/dL CERNER MILLENNIUM Creatinine 0.68(L) 0.70 - 1.20 mg/dL CERNER MILLENNIUM Comment: Please note that the pediatric reference intervals supplied above were not validated at [facility]. Results from pediatric patients [...] CERNER MILLENNIUM * (ABNORMAL) CBC (with Diff) (10/10/2011 11:23 AM EDT) White Blood Cell 6.0 4.0 - 10.0 x10(3)/mc L CERNER MILLENNIUM Red Blood Cell 3.99 3.93 - 5.22 x10(6)/mc L CERNER MILLENNIUM Hemoglobin 10.6(L) 11.2 - 15.7 gm/dL CERNER MILLENNIUM Hematocrit 32.6(L) 34.0 - 45.0 % [...] Cruz MD HEMATOLOGY ORDERAB LES MAGDALENA LEHMANENNIUM documented in this encounter Visit Diagnoses Diagnosis Hodgkin's disease Hodgkin's disease, unspecified documented in this encounter Care Teams Veterinary Radiologist Relationship Specialty Start Date End Date Arabella Villarreal MD [address] [facility] [place] [address] PCP - General 09/16/11 documented as of this encounter
--- OUTSIDE RECORDS SUMMARY | 2024-04-07 01:44 | XMS_ITS | Encounter Summary ---
Author Organization [facility] [place] [address] Care Team Providers Care Senior Credit Analyst Name Role Phone Arabella Villarreal MD Primary Care Provider [phone] Encounter Details Date Type Department Care Team (Latest Contact Info) Description 10/17/2011 9:18 AM EDT - 10/17/2011 11:59 PM EDT Hospital Encounter [place]ematology [place] [address] Myron Cruz MD [facility] [address] HEMATOLOGY [place] [address] Hodgkin's lymphoma Discharge Disposition: Home Social History [...] Sig Dispensed Refills Start Date End Date BACILLUS COAGULANS-INULIN ORAL Take by mouth daily. 012 prochlorperazine (COMPAZINE) 5 mg tabletIndications:H odgkin's lymphoma Take 2 tablets by mouth every 6 hours as needed for Nausea. 30 tablet 0 10/16/2011 10/22/2011 ondansetron (ZOFRAN) 4 mg tabletIndications:H odgkin's lymphoma [...] Gastroesophageal Reflux 04/02/19 23 vitamin 27 & [id number] 60 mg iron-1 mg tablet Take 1 tablet by mouth daily. 04/02/2022 documented as of this encounter Plan of Treatment Scheduled Orders Name Type Priority Associated Diagnoses Orde r Schedule Miscellaneous Lab request Lab Routine Hodgkin's lymphoma 1 Occurrences starting 10/17/2011 documented as of this encounter Visit Diagnoses Diagnosis Hodgkin's lymphoma Hodgkin's disease, unspecified documented in this encounter Care Teams Senior Credit Analyst Relationship Specialty Start Date End Date Arabella Villarreal MD [address] [place] [address] PCP - General 09/16/11 documented as of this encounter
--- OUTSIDE RECORDS SUMMARY | 2024-04-07 01:44 | XMS_ITS | Encounter Summary ---
[place] [address] Care Team Providers Care Billing Services Manager Name Role Phone Arabella Villarreal MD Primary Care Provider [phone] Encounter Details Date Type Department Care Team (Late st Contact Info) Description 09/30/2011 Telephone [place] [address] Courtney Garcia MD Social History Tobacco Use Types Packs/Day Years [...] encounter Miscellaneous Notes * Telephone Encounter - Courtney Garcia MD - 09/30/2011 5:57 PM EDT Called patient with results of her biopsy which came to light today. She has Clasical Hodgkin's Lymphoma, nodular sclerosing type. I had told her that Dr. Cruz will follow her. He has an appointment saved for her this . His office will call her for an initial consultation. I also told her that Dr. Cruz's group has several clinical trial opportunities. She can eventually have her treatment closer to home, which Dr. Cruz will arrange. She was understandably upset. I told her that I would be available to her at any time. She would likely find comfort in know a diagnosis and the treatment options, which she will learn on . I have asked Dr. Cruz to keep me updated on her progress. Acc #: [id number] Pt. Col Date: 09/25/2011 /Sex: 1980,(31 years),Female Rec Date: 09/25/2011 LOC: [facility] ---Pathologic Diagnosis--- Right neck mass biopsy ( A and B) : Classical Hodgkin Lymphoma, nodular sclerosis type. 09/27/11 SM 09/30/11 Verified by: Ag Montgomery MD Hematopathologist (Electronic Signature) The attending pathologist whose signature appears on this report has reviewed all diagnostic slides and has edited the gross and/or microscopic portion of the report in rendering the final pathologic diagnosis. ---Microscopic Description--- Lymph node sections show an effaced architecture. The capsule is thick and broad bands of septa are seen traversing throughout the lymphnode dividing it into lobules. Large bi and mononucleate cells with vesicular chromatin and prominent eosinophillic nucleoli R-S cells are present scattered in a background of mature cells comprising of lymphocytes, eosinophils and histiocytes. Immunohistochemistry Studies: Interpretation: Formalin-fixed, paraffin-embedded tissue sections are studied for CD30, CD15, Cd45, CD20, CD3, CD43, PAX5, ALK1 on block(s) B1 using the Avidin-Biotin Complex Technique with appropriate controls. These large cells stain positive for CD30 ( diffuse strong), CD15 ( subset, weak) and PAX5 (faint) and are negative for LCA, CD20, CD43 and ALK1. The background mature cells are composed of predominantly CD3 positive T cells along with some admixed CD20 positive B cells. Apoptotic cells are also noted. ---Gross Description--- A - Labeled/Fixative: Right neck mass biopsy ? lymphoma; fresh. Qty/Size/Weight: Single, 1.3 x 1.0 x 1.0 cm. Tissue Description: [place], congested, focally charred, rubbery portion of soft tissue displaying a lobulated, pink and white cut surface. Sections/Processing: Touch imprints are prepared, and operations support representative portion is processed for frozen section as (AFS1), resubmitted as (A1). (A2-A3) remainder of the specimen. (T3) B - Labeled/Fixative: Right neck mass biopsy, fresh. documented in this encounter Plan of Treatment Not on file documented as of this encounter Visit Diagnoses Not on filedocumented in this encounter Care Teams Billing Services Manager Relationship Specialty Start Date End Date Arabella Villarreal MD [address] [place] [address] PCP - General 09/16/11 documented as of this encounter
--- OUTSIDE RECORDS SUMMARY | 2024-04-07 01:44 | XMS_ITS | Encounter Summary ---
[place] [address] Care Team Providers Care Automobile Spring Repairer Name Role Phone Arabella Villarreal MD Primary Care Provider Encounter Details Date Type Department Care Team (Late st Contact Info) Description 10/10/2011 10:30 AM EDT Office Visit Hematology [place] [phone] Hodgkin's lymphoma (Primary Dx) Social History Tobacco [...] Progress Notes * Olga Espinoza RN - 10/10/2011 5:11 PM EDT RESEARCH NURSE NOTE Date: 10/10/2011 I met with Chasity Gallo today to formally introduce myself and review schedule of tests needed to complete staging (including CT scans, PET scans, PFTs, echocardiogram, labs, and bone marrow biopsy). Written schedule provided to patient with times/dates discussed via phone earlier this week. Contact information for MD hospital secretary, research RN, and Desk 3K also reviewed. Denies further questions/concerns regarding participation in clinical trials. Remains very interested in clinical trial participation, although she is waiting to fully review the previously-provided consent form until she knows which study she qualifies for. Chasity states that she has a good support group with friends and family, one of whom accompanied her today. Discussed avoidance of while on chemotherapy, which Shanna indicated she intends to do. Presently has a 2 year-old child at home and was planning on trying to become again prior to her recent diagnosis. Verbalizes understanding of need for contraception while on chemotherapy. States that she does not want to take oral contraceptives and prefers to use condoms for contraception. Assessment/Outcome: Patient verbalizes understanding of the basic premises of the protocols including ABVD x 2 cycles, followed by PET scan to determine response and guide remaining treatment decisions. Plan: 1. CT chest, abdomen, pelvis, & neck; labs; bone marrow biopsy with sedation to be done today. 2. FDG-PET scan to be done tomorrow (10/11/11). 3. RTC for MD visit on 10/14/11 following PFTs/echo to discuss results of scans/treatment plan and sign consent if still interested in study participation. 4. C1D1 of ABVD tentatively planned for 10/17/11. Patient verbalizes understanding to call for any questions/concerns that arise in the interim. documented in this encounter Plan of Treatment Not on file documented as of this encounter Visit Diagnoses Diagnosis Hodgkin's lymphoma- Primary Hodgkin's disease, unspecified documented in this encounter Care Teams Automobile Spring Repairer Relationship Specialty Start Date End Date Arabella Villarreal MD [address] [place] [address] PCP - General 09/16/11 documented as of this encounter
--- OUTSIDE RECORDS SUMMARY | 2024-04-07 01:44 | XMS_ITS | Encounter Summary ---
[place] [address] Care Team Providers Care Sheet Metal Contractor Name Role Phone Arabella Villarreal MD Primary Care Provider [phone] Encounter Details Date Type Department Care Team (Latest Contact Info) Description 10/10/2011 9:10 AM EDT - 10/10/2011 10:30 AM EDT Hospital [place] [address] Hodgkin's disease Social History Tobacco Use Types [...] Gastroesophageal Reflux 04/02/19 23 vitamin 27 & [id number] 60 mg iron-1 mg tablet Take 1 tablet by mouth daily. 04/02/2022 documented as of this encounter Plan of Treatment Not on file documented as of this encounter Procedures Procedure Name Priority Date/Time Associated Diagnosis Comments CT NECK SOFT TISSUE W CONTRAST Routine 10/10/2011 1:02 PM EDT Hodgkin's disease, unspecified documented in this encounter Results * CT NECK SOFT TISSUE WITH CONTRAST (10/10/2011 1:02 PM EDT) Anatomical Region Laterality Modality Neck, Head Computed Tomogra phy 10/10/2011 1:02 PM EDT Narrative 10/10/2011 1:[address] Neck With Contrast Clinical History Staging Hodgkin's lymphoma Need bidimensional measurements Comparison MRI neck 09/12/[address] scan 09/12/2011. Technique [address] Neck with contrast entering 10 mL of Omnipaque 350 administered. Findings There is a centrally necrotic right supraclavicular mass measuring 3.4 x 3.6 cm on the axial plane. Ill-defined soft tissue stranding surrounds this lesion. The adjacent anterior mediastinal mass is partially imaged on this study. A contralateral retroclavicular lymph node measures 1.4 x 1.7 cm. No other masses. Impression Lymphadenopathy as described above. Procedure Note Santiago Xiong MD - 10/10/[address] Neck With Contrast Clinical History Staging Hodgkin's lymphoma Need bidimensional measurements Comparison MRI neck 09/12/[address] scan 09/12/2011. Technique [address] Neck with contrast entering 10 mL of Omnipaque 350 administered. Findings There is a centrally necrotic right supraclavicular mass measuring 3.4 x3.6 cm on the axial plane. Ill-defined soft tissue stranding surrounds thislesion. The adjacent anterior mediastinal mass is partially imaged on this study.A contralateral retroclavicular lymph node measures 1.4 x 1.7 cm. No othermasses. Impression Lymphadenopathy as described above. Myron Cruz MD IMG CT ORDERABLES documented in this encounter Visit Diagnoses Diagnosis Hodgkin's disease Hodgkin's disease, unspecified documented in this encounter Administered Medications Inactive Administered Medications - up to 3 most recent administrations Medication Order MAR Action Action Date Dose Rate Site iohexol (OMNIPAQUE) 350 mg/mL injection 17,500 mg 17,500 mg (50 mL), Oral, ONCE PRN, 1 dose, Starting on Marleny 10/10/11 at 1305, Until Marleny 10/10/11 at 0900, Per Protocol, Routine Given 10/10/2011 9:00 AM EDT 17,500 mg iohexol (OMNIPAQUE) 350 mg/mL injection 38,500 mg 38,500 mg (110 mL), Intravenous, ONCE PRN, 1 dose, Starting on Marleny 10/10/11 at 1305, Until Marleny 10/10/11 at 1305, Per Protocol, Routine Given 10/10/2011 1:05 PM EDT 38,500 mg documented in this encounter Care Teams Sheet Metal Contractor Relationship Specialty Start Date End Date Arabella Villarreal MD [address] [place] [address] PCP - General 09/16/11 documented as of this encounter
--- OUTSIDE RECORDS SUMMARY | 2024-04-07 01:44 | XMS_ITS | Encounter Summary ---
[place] [address] Care Team Providers Care Damage Adjuster Name Role Phone Arabella Villarreal MD Primary Care Provider [phone] Encounter Details Date Type Department Care Team (Latest Contact Info) Description 09/24/2011 10:47 AM EDT - 09/24/2011 11:59 PM EDT Hospital [place] [phone] Courtney Garcia MD Neck mass Discharge Disposition: Home Social History Tobacco Use [...] by mouth daily (with breakfast). 02/20/20 12 OXYcodone-acetamino phen (ROXICET) 5-325 mg/5 mL solution Take 5-10 mLs by mouth every 4 hours as needed for Pain. 300 mL 0 09/13/2011 09/25/2011 ranitidine (ZANTAC) 150 mg tabletIndications:g astroesophageal reflux disease Take 150 mg by mouth daily as needed. Indications: Gastroesophageal Reflux 04/02/19 23 vitamin 27 & [id number] 60 mg iron-1 mg tablet Take 1 tablet by mouth daily. 04/02/2022 documented as of this encounter Plan of Treatment Not on file documented as of this encounter Procedures Procedure Name Priority Date/Time Associated Diagnosis Comments DIFFERENTIAL, AUTOMATED Routine 09/24/2011 11:07 AM EDT TYPE AND SCREEN, SDP (FUTURE SURGERY, [facility] SAME DAY PROGRAM ONLY) Routine 09/24/2011 11:07 AM EDT Neck mass ABO/RH TYPING Routine 09/24/2011 11:07 AM EDT Neck mass PROTHROMBIN TIME Routine 09/24/2011 11:0 7 AM EDT Neck mass CBC (WITH DIFF) Routine 09/24/2011 11:07 AM EDT Neck mass ANTIBODY SCREEN Routine 09/24/2011 11:07 AM EDT Neck mass COMPREHENSIVE METABOLIC PANEL Routine 09/24/2011 11:07 AM EDT Neck mass documented in this encounter Results * (ABNORMAL) DIFFERENTIAL, AUTOMATED (09/24/2011 11:07 AM EDT) Neutrophil % 74.5(H) 34.0 - 71.0 % CERNER MILLENNIUM Neutrophil Absolute 5.60 1.50 - 6.30 x10(3)/mc L CERNER MILLENNIUM Lymph % 15.7(L) 19.0 - 53.0 % CERNER MILLENNIUM Lymphocytes Abs 1.2 1.0 - 3.6 x10(3)/mc L CERNER MILLENNIUM Monocyte % 6.7 4.0 - 13.0 % CERNER MILLENNIUM Monocyte Abs 0.5 0.2 - 1.0 x10(3)/mc L CERNER MILLENNIUM Eos % 1.9 0.0 - 7.0 % CERNER MILLENNIUM Eosinophils Abs 0.1 0.0 - 0.5 x10(3)/mc L CERNER MILLENNIUM Basophil % 1.1 0.0 - 2.0 % CERNER MILLENNIUM Baso Absolute 0.1 0.0 - 0.2 x10(3)/mc L CERNER MILLENNIUM Immature Gran % 0.10 0.00 - 0.66 % CERNER MILLENNIUM Comment: Immature granulocytes(IG's)percentage and absolute count will include metamyelocytes, myelocytes, and promyelocytes. Blood smears from CBCs yielding IG's will be scanned manually for concordance. If this scan disagrees with the automated IG or if promyelocytes are noted, a manual differential will be performed. Immature Gran Absolute 0.01 0.00 - 0.05 x10(3)/mc L MAGDALENA SARMIENTOIUM Blood specimen (specimen) 09/24/2011 11:07 AM EDT 09/24/2011 11:33 AM EDT Courntey Garcia MD HEMATOLOGY ORDERABLE S MAGDALENA CARTER * ANTIBODY SCREEN (09/24/2011 11:07 AM EDT) Ab Screen Interp Negative MAGDALENA CARTER Expires at [id number] on: [id number] MAGDALENA SARMIENTOIUM Blood specimen (specimen) 09/24/2011 11:07 AM EDT 09/24/2011 11:09 AM EDT Narrative Resulting Agency Comment Spec In Lab Courtney Garcia MD BLOOD BANK LAB ORDER CAMI MAGDALENA CARTER * ABO/RH TYPING (09/24/2011 11:07 AM EDT) ABORH Type O Pos MAGDALENA SARMIENTOIUM Blood specimen (specimen) 09/24/2011 11:07 AM EDT 09/24/2011 11:09 AM EDT Narrative Resulting Agency Comment Spec In Lab Courtney Garcia MD BLOOD BANK LAB ORDER CAMI Performing Organization Address [facility] de Phone Number MAGDALENA CARETR * Prothrombin Time (09/24/2011 11:07 AM EDT) Prothrombin Time 13.8 11.9 - 14.7 sec CERNER MILLENNIUM Comment: [facility] Transfusion Committee Guidelines: INR less than 2.0, PTT less than OR equal to 43.5 seconds, or Fibrinogen greater than or equal to 100 mg/dl indicate adequate procoagulant activity for hemostasis in patients without underlying bleeding disorders. International Normalization Ratio 1.0 0.9 - 1.1 CERNER MILLENNIUM Blood specimen (specimen) 09/24/2011 11:07 AM EDT 09/24/2011 11:33 AM EDT Narrative Resulting Agency Comment Spec In Lab Courtney Garcia MD HEMATOLOGY ORDERABLE S Performing Organization Address [facility] de Phone Number MAGDALENA CARTER * (ABNORMAL) Comprehensive metabolic panel (non-fasting) (09/24/2011 11:07 AM EDT) Glucose 84 60 - 199 mg/dL CERNER MILLENNIUM Comment:Diabetes: >=200 mg/d L plus symptoms Blood Urea Nitrogen 12 8 - 18 mg/dL CERNER MILLENNIUM Creatinine 0.64(L) 0.70 - 1.20 mg/dL CERNER MILLENNIUM Comment: Please note that the pediatric reference intervals supplied above were not validated at [facility]. Results from pediatric patients should be interpreted in conjunction to the patient's age, height and muscle mass. Sodium 136 135 - 145 mmol/L CERNER MILLENNIUM Potassium [...] 5 - 15 mmol/L CERNER MILLENNIUM Calcium 9.8 8.5 - 10.5 mg/dL CERNER MILLENNIUM Protein, Total 7.8 6.4 - 8.3 gm/dL CERNER MILLENNIUM Albumin 4.1 3.2 - 5.2 gm/dL CERNER MILLENNIUM Aspartate Aminotransferase 11 0 - 30 unit/L CERNER MILLENNIUM Alanine Aminotransferase 8 0 - 30 unit/L CERNER MILLENNIUM Alkaline Phosphatase 74 40 - 104 unit/L CERNER MILLENNIUM Bilirubin, [...] J Am Soc Nephrol;6:1963-72. Blood specimen (specimen) 09/24/2011 11:07 AM EDT 09/24/2011 11:33 AM EDT Narrative Resulting Agency Comment Spec In Lab Courtney Garcia MD CHEMISTRY ORDERABLES CERNER MILLENNIUM * (ABNORMAL) CBC (with Diff) (09/24/2011 11:07 AM EDT) White Blood Cell 7.5 4.0 - 10.0 x10(3)/mc L CERNER MILLENNIUM Red Blood Cell 3.79(L) 3.93 - 5.22 x10(6)/mc L CERNER MILLENNIUM Hemoglobin 10.3(L) 11.2 - 15.7 gm/dL CERNER MILLENNIUM Hematocrit 31.1(L) 34.0 - 45.0 % CERNER MILLENNIUM Mean Cell Volume 82.1 79.0 - 94.0 fL CERNER MILLENNIUM Mean Cell Hemoglobin 27.2 26.6 - 32.2 pg CERNER MILLENNIUM Mean Cell Hemoglobin Concentration 33.1 32.0 - 36.5 gm/dL CERNER MILLENNIUM Platelet 475(H) 145 - 370 x10(3)/mc L CERNER MILLENNIUM RDW Standard Deviation 39.8 35.0 - 46.0 fL CERNER MILLENNIUM RDW coefficient of variation 13.2 10.9 - 14.4 % CERNER MILLENNIUM Mean Platelet Volume 8.4(L) 9.0 - 12.0 fL CERNER MILLENNIUM Blood specimen (specimen) 09/24/2011 11:07 AM EDT 09/24/2011 11:33 AM EDT Narrative Resulting Agency Comment Spec In Lab Courtney Garcia MD HEMATOLOGY ORDERABLE S Performing Organization Address City/State/[facility] [place] Phone Number [facility] documented in this encounter Visit Diagnoses Diagnosis Neck mass Swelling, mass, or lump in head and neck documented in this encounter Care Teams Damage Adjuster Relationship Specialty Start Date End Date Arabella Villarreal MD [address] [place] [address] PCP - General 09/16/11 documented as of this encounter
--- OUTSIDE RECORDS SUMMARY | 2024-04-07 01:44 | XMS_ITS | Encounter Summary ---
Author Organization [facility] [place] [address] Care Team Providers Care Access Liaison Name Role Phone Arabella Villarreal MD Primary Care Provider [phone] Encounter Details Date Type Department Care Team (Latest Contact Info) Description 10/14/2011 12:38 PM EDT - 10/14/2011 11:59 PM EDT Hospital Encounter XRay at [address] [place] [address] CLINIC, Myron Denney MD [facility] HEMATOLOGY [place] [address] Hodgkin's lymphoma Discharge Disposition: Home Social History [...] Gastroesophageal Reflux 04/02/19 23 vitamin 27 & [id number] 60 mg iron-1 mg tablet Take 1 tablet by mouth daily. 04/02/2022 documented as of this encounter Plan of Treatment Not on file documented as of this encounter Procedures Procedure Name Priority Date/Time Associated Diagnosis Comments XR CHEST PA AND LATERAL STAT 10/14/2011 12:52 PM EDT Hodgkin's lymphoma documented in this encounter Results * XR chest routine PA & lateral [...] unspecified documented in this encounter Care Teams Access Liaison Relationship Specialty Start Date End Date Arabella Villarreal MD [address] [place] [address] PCP - General 09/16/11 documented as of this encounter
--- OUTSIDE RECORDS SUMMARY | 2024-04-07 01:44 | XMS_ITS | Encounter Summary ---
Author Organization [facility] [place] [address] Care Team Providers Care Dielectric Testing Machine Operator Name Role Phone Arabella Villarreal MD Primary Care Provider [phone] Encounter Details Date Type Department Care Team (Late st Contact Info) Description 10/24/2011 Telephone Hematology [place] [phone] Myron Cruz MD [facility] [address] [place] [address] Social History Tobacco Use Types Packs/Day Years [...] Telephone Encounter - Olga Espinoza RN - 10/24/2011 10:03 AM EDT RESEARCH NURSE TELEPHONE NOTE [id number]: Phase II Trial of Response-Adapted Therapy Based on Positron Emission Tomography (PET) for Bulky Stage 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 Reports that she feels that she is developing a cold sore on her nose that is sore and itchy. Inquires if it is ok to take 500mg L-Lysine by mouth twice daily (which she has previouslytaken as [facility] her records from [facility]). No interactions found with CP Online; question forwarded to physician for approval. Time: 1:15 PM After ok received from Dr. Cruz, return call placed to Chasity to let her know that it is ok totake L-Lysine 500mg by mouth twice daily as needed for cold sores. Chasity states that the Zofran is working, as she has not required the compazine today as of yet today. Reports that she's starting to feel a headache coming on now, so she will take her temperature and then take Excedrin. Also sta tamra that she took Ativan 0.5 mg last evening before bed and did not feel nauseous overnight last night. Plans to take another Zofran at 1430 (8 hours from AM dose taken at 0630 this morning) today. Further discussed plan to amend anti-emetics for next cycle. Chasity states she prefers not to take steroids as they keep me up at night, but I will take them if I have to. Empathy and encouragement provided; Chasity reassured that nausea should be subsiding within the next 24 hours at least. Plan: 1. Pt will continue on study [id number] per protocol. 2. Next visit C1D15 scheduled for 10/31/11 to include: labs, MD visit, ABVD per protocol. Patient verbalizes understanding of, and agreement with, plan. Advised to contact this office for any questions/concerns, as well as for any new or worsening symptoms. documented in this encounter Plan of Treatment Not on file documented as of this encounter Visit Diagnoses Not on filedocumented in this encounter Care Teams Dielectric Testing Machine Operator Relationship Specialty Start Date End Date Arabella Villarreal MD [address] [place] [address] [address] [place] [address] PCP - General 09/16/11 documented as of this encounter
--- OUTSIDE RECORDS SUMMARY | 2024-04-07 01:44 | XMS_ITS | Encounter Summary ---
[place] [address] Care Team Providers Care Distillery Miller Helper Name Role Phone Arabella Villarreal MD Primary Care Provider [phone] Encounter Details Date Type Department Care Team (Latest Contact Info) Description 10/14/2011 9:38 AM EDT - 10/14/2011 12:37 PM EDT Hospital Encounter Non-[place] [id number] Chemotherapy follow-up examination Social History Tobacco Use Types Packs/Day Years [...] Gastroesophageal Reflux 04/02/19 23 vitamin 27 & [id number] 60 mg iron-1 mg tablet Take 1 tablet by mouth daily. 04/02/2022 documented as of this encounter Plan of Treatment Not on file documented as of this encounter Procedures Procedure Name Priority Date/Time Associated Diagnosis Comments ECHOCARDIOGRAM TRANSTHORACIC Routine 10/14/2011 10:58 AM EDT Chemotherapy follow-up examination documented in this encounter Results * Echo Transthoracic (Complete) (10/14/2011 10:58 AM EDT) EF 69 HEARTLAB SYSTEM Anatomical Region Laterality Modality Other 10/14/2011 Narrative 10/14/2011 12:01 PM EDT Procedure: ? Transthoracic Echocardiogram Patient: ? ANA Spicer ?(Age): 1980(31) Med Rec#: ?[id number] ? Sex: ?F ? Site Loc: ?[facility] [place] ? Ht / Wt: ??170(cm)/63(kg) Pt. Loc: ? Echo Lab ? BSA: ?1.72 Study Date: ?10/14/2011 ? Pt. Type: Outpatient Tape: ? 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 Mid-Inferior ?Normal ? Mid-Inferoseptal ?Normal ? [place]-Septal ? Normal ? [place]-Anterior ? Normal ? [place]-Lateral ?Normal ? [place]-Inferior ? Normal ? [place]-Tip ?Normal ? Chambers ?Value ?Units (Range) ? [...] 10/14/2011 12:00:59 Images reviewed and interpretation verified [facility] Cardiac Ultrasound Laboratory Procedure Note Jose Alejandro MD - 10/14/2011 Procedure: Transthoracic Echocardiogram Patient: ANA Spicer DOB(Age): 1980(31) Med Rec#: [id number] Sex: F Site Loc: [facility] [place] Ht / Wt: 170(cm)/63(kg) Pt. Loc: Echo Lab BSA: 1.72 Study Date: 10/14/2011 Pt. 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 The left ventricular chamber size is normal. There is normal global left ventricular systolic function. Ejection fraction is estimated to be 65% by visual estimate and 69% using a monoplane Guzmán (semi-quantitative method). There are no left ventricular [...] Normal Mid-Posterolateral Normal Mid-Inferior Normal Mid-Inferoseptal Normal [place]-Septal Normal [place]-Anterior Normal [place]-Lateral Normal [place]-Inferior Normal [place]-Tip Normal Chambers Value Units (Range) LV EF [...] 10/14/2011 12:00:59 Images reviewed and interpretation verified [facility] Cardiac Ultrasound Laboratory Myron Cruz MD ECHO ORDERABLES documented in this encounter Visit Diagnoses Diagnosis Chemotherapy follow-up examination documented in this encounter Care Teams Distillery Miller Helper Relationship Specialty Start Date End Date Arabella Villarreal MD [address] [place] [address] PCP - General 09/16/11 documented as of this encounter
--- OUTSIDE RECORDS SUMMARY | 2024-04-07 01:44 | XMS_ITS | Encounter Summary ---
[place] [address] Care Team Providers Care Actionscript Developer Name Role Phone Arabella Villarreal MD Primary Care Provider [phone] Encounter Details Date Type Department Care Team (Latest Contact Info) Description 09/25/2011 5:59 AM EDT - 09/25/2011 12:55 PM EDT Hospital Encounter [place] [address] Courtney Garcia MD Neck mass; Mediastinal mass Discharge Disposition: Home Social History Tobacco [...] AND HOLIDAYS: ASK FOR THE SURGERY RESIDENT CERTIFIED MASTER SAFECRACKER IF ANY OF THE ABOVE OCCUR. Activity [...] Gastroesophageal Reflux 04/02/19 23 vitamin 27 & wlmyiwx-mweq-WJ 60 mg iron-1 mg tablet Take 1 [...] Garcia MD - 09/25/2011 8:55 AM EDT [facility] [place] Patient Name: Vidhi Perez : [id number] MR#: [id number] Case Date: 09/25/2011 Surgeon: Surgeon(s) and Role: [...] vessels, nerves and esophagus; prolonged hospital/ICU stay; ME; arrhythmia; pneumonia; oxygen dependence; stroke and . [...] cytometry. I called Dr. Cruz, our hematology maintenance specialist to follow up on these results. [...] Operative Note Patient Name: Vidhi Perez : [id number] MR#: [id number] Case Date: 09/25/2011 Surgeon: Surgeon(s) and Role: [...] 8:18 AM EDT) Surgical Pathology Report ? [facility] ? Provider: ?? COURTNEY GARCIA ?Pt. Name: ?? VIDHI PEREZ ? Acc #: ?[id number] ?Pt. ? Col Date: ?? 09/25/2011 ? [...] x 1.0 cm. ? Tissue Description: ?? [place], congested, focally charred, rubbery portion of ? soft tissue displaying a lobulated, pink and white ? cut surface. ? Sections/Processing: ??Touch imprints are prepared, and inside technical sales representative ? portion is processed for frozen section as (AFS1), ? resubmitted as (A1). ??(A2-A3) remainder of the ? specimen. ??(T3) ? B - Labeled/Fixative: Right neck mass biopsy, fresh. ? [facility] ? Provider: ?? COURTNEY GARCIA ?Pt. Name: ?? VIDHI PEREZ ? Acc #: ?[id number] ?Pt. ? Col Date: ?? 09/25/2011 ? [...] Right neck & mediastinal mass ? lymphoma CERNER MILLENNIUM 09/25/2011 8:18 AM EDT Courtney Garcia MD PATHOLOGY/CYTOLOGY O RDERABLES [facility] * FROZEN SECTION REPORT (09/25/2011 8:18 AM EDT) Frozen Section Report ? [facility] ? Provider: ?? COURTNEY GARCIA ?Pt. Name: ?? VIDHI PEREZ ? Acc #: ?[id number] ?Pt. ? Col Date: ?? 09/25/2011 ? [...] MD PATHOLOGY/CYTOLOGY O LIV Performing Organization Address [facility] Phone Number MAGDALENA CARTER * Specimen to Pathology (surgical or derm) (09/25/2011 8:17 AM EDT) AP Specimen 09/25/2011 8:17 AM EDT 09/25/2011 8:17 AM EDT Narrative MAGDALENA CARTER - 09/25/2011 8:17 AM EDT Specimen requisition ordered. ??Separate Pathology report to follow Courtney Garcia MD PATHOLOGY/CYTOLOGY O LIV Performing Organization Address [facility] Phone Number MAGDALENA CARTER * Specimen to Pathology (surgical or derm) (09/25/2011 8:17 AM EDT) AP Specimen 09/25/2011 8:17 AM EDT 09/25/2011 8:17 AM EDT Narrative MAGDALENA CARTER - 09/25/2011 8:17 AM EDT Specimen requisition ordered. ??Separate Pathology report to follow Courtney Garcia MD PATHOLOGY/CYTOLOGY O LIV Performing Organization Address [facility] Phone Number MAGDALENA CARTER documented [...] (TYLENOL) tablet 650 mg 650 mg, Oral, EVERY 4 HOURS PRN, Starting on Fri09/25/11 at 0729, Until Fri09/25/11 at 1518, Pain, Maximum dose of acetaminophen is 4000 mg from all sources in 24 hours., Routine Given 09/25/2011 9:57 AM EDT 650 mg fentaNYL 50mcg/mL injection 25-50 mcg, Intravenous, EVERY 5 MIN PRN, Starting on Fri09/25/11 at 0855, Until Fri09/25/11 at 1518, Pain, for breakthrough pain, Hold for respiratory rate less than 10 per minute. Maximum dose: 250 mcg over one hour., PACU Recovery, Routine Given 09/25/2011 10:55 AM EDT 50 mcg Given 09/25/2011 10:16 AM EDT 50 mcg Given 09/25/2011 10:07 AM EDT 50 mcg ibuprofen (ADVIL;MOTRIN) tablet 600 mg 600 mg, Oral, EVERY 6 HOURS PRN, Starting on Fri09/25/11 at 0729, Until Fri09/25/11 at 1518, Pain, Maximum dose of 3200 mg from all sources in 24 hours, Routine Given 09/25/2011 9:57 AM EDT 600 mg lactated ringers infusion 1,000 mL 1,000 mL, at 100 mL/hr, Intravenous, CONTINUOUS, Starting on Fri09/25/11 at 0630, Until Fri09/25/11 at 1518, Day of Surgery (Day of Procedure) [facility] 09/25/2011 6:41 AM EDT 1,000 mLs 100 mL/hr lactated ringers infusion 1,000 mL 1,000 mL, at 100 mL/hr, Intravenous, CONTINUOUS, Starting on Fri09/25/11 at 0915, Until Fri09/25/11 at 1518, PACU Recovery [facility] 09/25/2011 10:55 AM EDT 1,000 mLs 100 mL/hr OXYcodone (ROXICODONE) immediate release tablet 5-10 mg 5-10 mg, Oral, EVERY 4 HOURS PRN, Starting on Fri09/25/11 at 0729, Until Fri09/25/11 at 1518, Pain, Routine Given 09/25/2011 10:54 AM EDT 5 mg Given 09/25/2011 10:16 AM EDT 5 mg promethazine (PHENERGAN) injection 6.25 mg 6.25 mg, Intravenous, ONCE PRN, Nausea, Starting on Fri09/25/11 at 0855, 1 dose, Until Fri09/25/11 at 1102, Dilute in 20 mL sodium chloride 0.9% and administer through a free flowing IV. Usual dose range 0.25-0.5 mg/kg/dose to a maximum of 25 mg/dose, PACU Recovery Given 09/25/2011 11:02 AM EDT 6.25 mg documented in this encounter Active and Recently Administered Medications Times are shown in EDT. Scheduled Medication Order 09/23/2011 09/24/2011 09/25/2011 ceFURoxime (ZINACEF) 1.5g vial attach to sodium chloride 0.9% 100 mL Mini-Bag Plus (COMPLETED) 1.5 g, Intravenous, ONCE, 1 dose, On Fri09/25/11 at 0630, Administer over 60 Minutes, Within one hour pre-operatively, Intra-Operative (Intra-Procedure), Indication for (Active or Suspected): Prophylaxis 06 (Due)0738 (Give n - Provider: Christie Murray [...] 0915, Until Fri09/25/11 at 1518, PACU Recovery 0915 (Due)1055 (New Bag - Provider: Renate Campos RN) PRN Medication Order 09/23/2011 09/24/2011 09/25/2011 acetaminophen (TYLENOL) tablet 650 mg (CANCELED) 650 mg, Oral, EVERY 4 HOURS PRN, Starting on Fri09/25/11 at 0729, Until Fri09/25/11 at 1518, Pain, Maximum dose of acetaminophen is 4000 mg from all sources in 24 hours., Routine 0957 (Given - Provid er: Renate Campos RN) BUpivacaine-epiNEPHrine 0.5 %-1:200,000 injection (CANCELED) ONCE PRN, Starting on Fri09/25/11 at 0830, Until Fri09/25/11 at 1518, Intra-Operative (Intra-Procedure), Routine 0830 (Given - Provid er: Kevin Easley MD) fentaNYL 50mcg/mL injection (CANCELED) 25-50 mcg, Intravenous, EVERY 5 MIN PRN, Starting on Fri09/25/11 at 0855, Until Fri09/25/11 at 1518, Pain, for breakthrough pain, Hold for respiratory rate less than 10 per minute. Maximum dose: 250 mcg over one hour., PACU Recovery, Routine 0922 (Given - Provid er: Renate Campos RN)0942 (Given - Provider: Renate Campos RN)1007 (Given - Provider: Renate Campos RN)1016 (Given - Provider: Renate Campos RN)1055 (Given - Provider: Renate Campos RN) ibuprofen (ADVIL;MOTRIN) tablet 600 mg (CANCELED) [...] RN) documented in this encounter Care Teams Actionscript Developer Relationship Specialty Start Date End Date Arabella Villarreal MD [address] [place] [address] PCP - General 09/16/11 documented as of this encounter
--- OUTSIDE RECORDS SUMMARY | 2024-04-07 01:44 | XMS_ITS | Encounter Summary ---
Author Organization [facility] [place] [address] Care Team Providers Care Early Childhood Teacher Assistant Name Role Phone Arabella Villarreal MD Primary Care Provider [phone] Encounter Details Date Type Department Care Team (Late st Contact Info) Description 10/07/2011 Telephone Hematology [place] [phone] Myron Cruz MD [facility] [address] [place] [address] Social History Tobacco Use Types Packs/Day Years [...] Telephone Encounter - Olga Espinoza RN - 10/07/2011 1:21 PM EDT RESEARCH NURSE NOTE Date: 10/07/[address] Cruz, I called Chasity Gallo to introduce myself, my role, and review information regarding the hodgkin's lymphoma clinical trials ([id number], [id number], [id number]) [place] [facility] which had been previously discussed with her. Shanna was given written information regarding general participation in clinical trials, as well as a copy of the above study's consent forms, and my contact information, at her last visit with Dr. Cruz. During this phone call, she denies any further questions or concerns about the studies and indicates continued interest in clinical trial participation. Shanna confirms that she discussed necessary staging tests (including CT scans, PET scans, PFTs, echocardiogram, labs, and bone marrow biopsy) to be completed prior to beginning treatment with ABVD and feels ready to proceed with these. Verbalizes understanding that her eligibility for these studies will depend on the results of her staging. Assessment/Outcome: Patient verbalizes interest in study. Requests bone marrow biopsy be scheduled with conscious sedation. CT safety questionnaire completed. Scheduling preferences provided to Sangeetha Tavares, who will coordinate. Plan: 1. Structural Steel Engineer to follow-up with patient via phone to communicate schedule of initial staging tests. Patient verbalizes understanding to call for any questions/concerns that arise in the interim. documented in this encounter Plan of Treatment Not on file documented as of this encounter Visit Diagnoses Not on filedocumented in this encounter Care Teams Early Childhood Teacher Assistant Relationship Specialty Start Date End Date Arabella Villarreal MD [address] [place] [address] PCP - General 09/16/11 documented as of this encounter
--- OUTSIDE RECORDS SUMMARY | 2024-04-07 01:44 | XMS_ITS | Encounter Summary ---
Author Organization [facility] [place] [address] Care Team Providers Care Cake Press Operator Name Role Phone Arabella Villarreal MD Primary Care Provider [phone] Reason for Visit * Reason Comments Follow-up Encounter Details Date Type Department Care Team (Late st Contact Info) Description 10/25/2011 Telephone [place]ology [place] [phone] Myron Cruz MD [facility] [address] [place] [address] Follow-up Social History Tobacco Use Types Packs/Day [...] Telephone Encounter - Olga Espinoza RN - 10/25/2011 11:38 AM EDT RESEARCH NURSE TELEPHONE NOTE [id number]: Phase II Trial of Response-Adapted Therapy Based on Positron Emission Tomography (PET) for 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 Plans on using Zofran with Excedrin (following temperature check) if needed today. Patient states that she does not need a return phone call. documented in this encounter Plan of Treatment Not on file documented as of this encounter Visit Diagnoses Not on filedocumented in this encounter Care Teams Cake Press Operator Relationship Specialty Start Date End Date Arabella Villarreal MD [address] [place] [address] PCP - General 09/16/11 documented as of this encounter
--- OUTSIDE RECORDS SUMMARY | 2024-04-07 01:44 | XMS_ITS | Encounter Summary ---
[place] [address] Care Team Providers Care Investment Banker Name Role Phone Arabella Villarreal MD Primary Care Provider [phone] Encounter Details Date Type Department Care Team (Latest Contact Info) Description 10/10/2011 9:10 AM EDT - 10/10/2011 10:30 AM EDT Hospital [place] [address] CLIN[facility], DR [facility]ANG Hodgkin's disease Social History Tobacco Use Types [...] Gastroesophageal Reflux 04/02/19 23 vitamin 27 & edpjdax-zerq-PS 60 mg iron-1 mg tablet Take 1 tablet by mouth daily. 04/02/2022 documented as of this encounter Miscellaneous Notes * Miscellaneous - Provider, Scanning - 10/17/2011 10:00 AM EDT * Miscellaneous - Provider, Scanning - 10/11/2011 1:21 AM EDT documented in this encounter Plan of Treatment Not on file documented as of this encounter Procedures Procedure Name Priority Date/Time Associated Diagnosis Comments CT CHEST ABDOMEN PELVIS W CONTRAST (GENERIC) Routine 10/10/2011 1:02 PM EDT Hodgkin's disease, unspecified documented in this encounter Results * CT CHEST, ABDOMEN, & PELVIS WITH CONTRAST (10/10/2011 1:02 PM EDT) Anatomical Region Laterality Modality Computed Tomogra phy 10/10/2011 1:02 PM EDT Addenda Addendum on 10/15/2011 5:35 PM EDT Addendum Begins The patient was reviewed in Lymphoma Tumor Board today, 10/15/2011. ??In maximum craniocaudal dimension, the overall mediastinal lymphadenopathy measures on the order of approximately 10.1 cm. Addendum Ends Addendum on 10/15/2011 5:35 PM EDT Addendum Begins The patient was reviewed in Lymphoma Tumor Board today, 10/15/2011. ??In maximum craniocaudal dimension, the overall mediastinal lymphadenopathy measures on the order of approximately 10.1 cm. Addendum Ends Narrative 10/10/2011 3:[address] Chest / Abdomen / Pelvis With Contrast Clinical History Staging Hogdkin's lymphomaL Need bidimensional measurements Comparison CT of the chest from September 24, 2011. Technique 110 mL Omnipaque 350 utilized for intravenously enhanced CT of the chest, abdomen, and pelvis. Findings Chest: The lungs are stable. ??Mild pleural based nodularity seen along the posterior aspect of the left lower lobe. ??This is felt to be benign. ??No areas of airspace consolidation. ??No pleural effusions or suspicious pulmonary nodules. As noted on the previous study, multi focal mediastinal lymphadenopathy is noted, which is not significantly changed as noted in the below chart. ??The griselda masses encase the aortic arch. ??In addition the mass encases the left brachiocephalic vein and proximal superior vena cava. No axillary adenopathy. Abdomen: The liver is enlarged, measuring approximately 21.5 cm cranial-caudal dimension. ??2 subcentimeter indeterminate hypodensities are noted, 1 in the left lobe, and the other in the right lobe. ??No biliary ductal dilatation or perihepatic fluid. ??The spleen is unremarkable. ??No evidence of splenomegaly. ?? The pancreas, adrenal glands, and kidneys are normal. ??No intra-abdominal free fluid or free air. ??No abdominal adenopathy. Pelvis: No pelvic sidewall or inguinal lymphadenopathy. ??No [place] iliac lymph adenopathy. ??Trace free fluid is seen in the pelvis, which is felt to be physiologic. ??No evidence of adnexal masses. ??No inguinal adenopathy. The osseous structures are unremarkable. Mediastinal mass ??; ?? ; ?? ; ?? ; {CR}Previous scan ??; Series 2 ??; Image 23 ??; 57 x 28 mm ??; {CR}Present scan ??; Series 2 ??; Image 14 ??; 55 x 28 mm ??; {CR} Mediastinal mass ??; ?? ; ?? ; ?? ; {CR}Previous scan ??; Series 2 ??; Image 33 ??; 61 x 27 mm ??; {CR}Present scan ??; Series 2 ??; Image 21 ??; 60 x 29 mm ??; {CR} Impression Multi focal mediastinal lymphadenopathy, compatible patient's history of lymphoma. Procedure Note Braydon Ha MD - 10/15/[address] Chest / Abdomen / Pelvis With Contrast Clinical History Staging Hogdkin's lymphomaL Need bidimensional measurements Comparison CT of the chest from September 24, 2011. Technique 110 mL Omnipaque 350 utilized for intravenously enhanced CT of the chest, abdomen, and pelvis. Findings Chest: The lungs are stable. Mild pleural based nodularity seen along theposterior aspect of the left lower lobe. This is felt to be benign. No areas of airspace consolidation. No pleural effusions or suspicious pulmonarynodules. As noted on the previous study, multi focal mediastinal lymphadenopathy is noted, which is not significantly changed as noted in the below chart.The griselda masses encase the aortic arch. In addition the mass encases theleft brachiocephalic vein and proximal superior vena cava. No axillary adenopathy. Abdomen: The liver is enlarged, measuring approximately 21.5 cm cranial-caudal dimension. 2 subcentimeter indeterminate hypodensities are noted, 1 inthe left lobe, and the other in the right lobe. No biliary ductal dilatationor perihepatic fluid. The spleen is unremarkable. No evidence ofsplenomegaly. The pancreas, adrenal glands, and kidneys are normal. No intra-abdominalfree fluid or free air. No abdominal adenopathy. Pelvis: No pelvic sidewall or inguinal lymphadenopathy. No [place] iliac lymph adenopathy. Trace free fluid is seen in the pelvis, which is felt to be physiologic. No evidence of adnexal masses. No inguinal adenopathy. The osseous structures are unremarkable. Mediastinal mass ; ; ; ; {CR}Previous scan ; Series 2 ; Image 23; 57 x 28 mm ; {CR}Present scan ; Series 2 ; Image 14 ; 55 x 28 mm ;{CR} Mediastinal mass ; ; ; ; {CR}Previous scan ; Series 2 ; Image 33; 61 x 27 mm ; {CR}Present scan ; Series 2 ; Image 21 ; 60 x 29 mm ;{CR} Impression Multi focal mediastinal lymphadenopathy, compatible patient's history of lymphoma. Myron Cruz MD IMG CT ORDERABLES documented [...] 1 dose, Starting on Marleny 10/10/11 at 1050, Until Marleny 8 at 0900, Per Protocol, Routine Given 10/10/2011 9:00 AM EDT 17,500 mg iohexol (OMNIPAQUE) 350 mg/mL injection 38,500 mg 38,500 mg (110 mL), Intravenous, ONCE PRN, 1 dose, Starting on Marleny 10/10/11 at 1050, Until Marleny 10/10/11 at 1100, Per Protocol, Routine Given 10/10/2011 11:00 AM EDT 38,500 mg documented in this encounter Care Teams Investment Banker Relationship Specialty Start Date End Date Arabella Villarreal MD [address] [place] [address] [address] [facility] [address] [place] [address] PCP - General 09/16/11 documented as of this encounter
--- OUTSIDE RECORDS SUMMARY | 2024-04-07 01:44 | XMS_ITS | Encounter Summary ---
Author Organization [facility] [place] [address] Care Team Providers Care Rate Engineer Name Role Phone Arabella Villarreal MD Primary Care Provider [phone] Encounter Details Date Type Department Care Team (Late st Contact Info) Description 10/15/2011 Telephone Hematology [place] [phone] Myron Cruz MD [facility] [address] [place] [address] Social History Tobacco Use Types Packs/Day Years [...] Telephone Encounter - Olga Espinoza RN - 10/15/2011 5:52 PM EDT RESEARCH NURSE TELEPHONE NOTE [id number]: Phase II Trial of Response-Adapted Therapy Based on Positron Emission Tomography (PET) for 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 Cruz, I called and spoke w/ Chasity to review the final decision regarding her case from Lymphoma Tumor Board today. 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 Chasity verbalizes continued intention to be treated on protocol. Encouraged Chasity to thoroughly review consent form that she has been previously provided so that she may ask questions during appointment on . Chasity informed that Dr. Cruz will be sending in prescriptions for anti- emetics to use at homeif needed. RN to review these medications in detail during appointment on . Requests that scripts are sent to [facility] in [place], [place] ( ). Plan: 1. Next appointment (C1D1 ABVD) scheduled for 10/17/11 to include: Physical exam, informed consent discussion/signing if interested in treatment on protocol, labs (including lab kit), and ABVD infusion. Patient verbalizes understanding of, and agreement with, plan. Advised to contact this office for any questions/concerns that arise in the interim. documented in this encounter Plan of Treatment Not on file documented as of this encounter Visit Diagnoses Not on filedocumented in this encounter Care Teams Rate Engineer Relationship Specialty Start Date End Date Arabella Villarreal MD [address] [place] [address] PCP - General 09/16/11 documented as of this encounter
--- OUTSIDE RECORDS SUMMARY | 2024-04-07 01:44 | XMS_ITS | Encounter Summary ---
Author Organization [facility] [place] [address] Care Team Providers Care Freelance Court Stenographer Name Role Phone Arabella Villarreal MD Primary Care Provider [phone] Reason for Visit * Reason Comments Biopsy Bone Marrow Encounter Details Date Type Department Care Team (Latest Contact Info) Description 10/10/2011 10:31 AM EDT - 10/10/2011 3:45 PM EDT Hospital Encounter Hematology [place] [address] SCHEDULE, BONE MARROW [facility] [place] [address] Myron Cruz MD [facility] [address] [place] [address] Hodgkin's lymphoma Discharge Disposition: Home Social History [...] Gastroesophageal Reflux 04/02/19 23 vitamin 27 & [id number] 60 mg iron-1 mg tablet Take 1 tablet by mouth daily. 04/02/2022 documented as of this encounter Procedure Notes * Pamela Patiño APRN - 10/10/2011 12:00 AM EDTProcedure(s): BONE MARROW BIOPSY, MSPACU BONE MARROW BIOPSY AND ASPIRATION PROCEDURE NOTE Bone marrow biopsy with sedation Time of Procedure: 14:15 ULTRASOUND SPECIALIST/MD: Pamela Patiño APRN Consent: Signed and on chart Time out: Pt. identity, intended procedure and the location of the site/side confirmed. DIAGNOSIS: Hodgkin's Lymphoma IV ACCESS: Per anesthesia / sedation RN PAIN INTERVENTION: Per anesthesia / sedation RN Sterile Condition: Chlorohexidine was used to sterilize the area Sterile drapes were used to create a sterile field. Local Anesthesia: 1 % Lidocaine PROCEDURE: A bone marrow biopsy and aspiration was performed on the Left posterior iliac crest. Tegaderm dressing placed and pressure applied to site for 30 minutes following the procedure. Estimated Blood Loss: minimal Complications: none Testing: Per bone marrow requisition POST INTERVENTION PAIN ASSESSMENT: Per anesthesia and PACU nurses. Follow-up: Written/Verbal instructions for site care given to pt. per PACU nurses. Follow-up with Physician as instructed. Pamela Patiño, MSN, ULTRASOUND SPECIALIST Nurse Practitioner Section of Hematology/Oncology [facility] Office phone: documented in this encounter Plan of Treatment Not on file documented as of this encounter Visit Diagnoses Diagnosis Hodgkin's lymphoma Hodgkin's disease, unspecified documented in this encounter Care Teams Freelance Court Stenographer Relationship Specialty Start Date End Date Arabella Villarreal MD [address] [facility] [address] [place] [address] PCP - General 09/16/11 documented as of this encounter
--- OUTSIDE RECORDS SUMMARY | 2024-04-07 01:44 | XMS_ITS | Encounter Summary ---
Author Organization [facility] Address [facility] [place] [address] Care Team Providers Care Clinical Social Worker Name Role Phone Arabella Villarreal MD Primary Care Provider [phone] Encounter Details Date Type Department Care Team (Latest Contact Info) Description 10/14/2011 1:23 PM EDT - 10/14/2011 11:59 PM EDT Hospital Encounter XRay at [address] [place] [address] CLINIC, DR VANG Discharge Disposition: Home Social History Tobacco Use [...] Gastroesophageal Reflux 04/02/19 23 vitamin 27 & [id number]-DU 60 mg iron-1 mg tablet Take 1 tablet by mouth daily. 04/02/2022 documented as of this encounter Plan of Treatment Not on file documented as of this encounter Visit Diagnoses Not on filedocumented in this encounter Care Teams Clinical Social Worker Relationship Specialty Start Date End Date Arabella Villarreal MD [address] [place] [address] PCP - General 09/16/11 documented as of this encounter
--- OUTSIDE RECORDS SUMMARY | 2024-04-07 01:44 | XMS_ITS | Encounter Summary ---
Author Organization [facility] [place] [address] Care Team Providers Care Apricot Packer Name Role Phone Arabella Villarreal MD Primary Care Provider [phone] Encounter Details Date Type Department Care Team (Latest Contact Info) Description 10/14/2011 9:37 AM EDT - 10/14/2011 11:59 PM EDT Hospital En[place] [address] SCHEDULE 1, PFT Myron Cruz MD [facility] DR HEMATOLOGY [place] [address] Hodgkin lymphoma (Primary Dx) Discharge Disposition: Home [...] Gastroesophageal Reflux 04/02/19 23 vitamin 27 & [id number]-fwif-ZT 60 mg iron-1 mg tablet Take 1 tablet by mouth daily. 04/02/2022 documented as of this encounter Progress Notes * Alec Mann MD - 10/18/2011 9:03 AM EDTEncounter addended by: Alec Mann MD on: 10/18/2011 9:03 AM
Documentation filed: IP FastNote documented in this encounter Procedure Notes * Alec Mann MD - 10/17/2011 8:21 AM EDTAssociated Order(s): LUNG VOLUMES; PFT SCREEN (PULMONARY FUNCTION TEST); SCAN DOC: PFT Pulmonary Function Test Interpretation (pertinent boxes checked) FEV1 is normal. FVC is normal. The FEV1/FVC ratio is normal. Lung volumes are normal except for a mild reduction in residual volume. Uncorrected single-breath diffusion capacity for CO was [x] normal [] reduced. Resting oxyhemoglobin saturation on air was [x] normal [] reduced Impression: Isolated reduction in residual volume of questionable significance. documented in this encounter Plan of Treatment Not on file documented as of this encounter Procedures Procedure Name Priority Date/Time Associated Diagnosis Comments LUNG VOLUMES Routine 10/18/2011 9:03 AM EDT PFT SCREEN (DLCO,OXIMETRY,SPIR OMETRY) Routine 10/18/2011 9:03 AM EDT PFT SCAN Routine 10/18/2011 9:03 AM EDT documented in this encounter Results * Lung Volumes (10/18/2011 [...] volume of questionable significance. ?? Procedure Note Alec Mann MD - 10/17/2011 8:21 AM EDT Pulmonary [...] volume of questionable significance. ?? Procedure Note Alec Mann MD - 10/17/2011 8:21 AM EDT Pulmonary [...] Cruz MD PROCEDURE/MINOR GOMEZ RGICAL ORDERABLES * Scan Doc: PFT (10/18/2011 9:03 AM EDT) Narrative Alec Mann MD - 10/18/2011 9:03 AM EDT ALEC MANN ? 10/18/2011 ? 9:03:04 AM Pulmonary Function Test Interpretation (pertinent boxes checked) FEV1 is normal. ??FVC is normal. ??The FEV1/FVC ratio is normal. Lung volumes are normal except for a mild reduction in residual volume. Uncorrected single-breath diffusion capacity for CO was [x] normal [] reduced. Resting oxyhemoglobin saturation on air was [x] normal [] reduced Impression: Isolated reduction in residual volume of questionable significance. ?? Procedure Note Alec Mann MD - 10/17/2011 8:21 AM EDT Pulmonary [...] residual volume of questionablesignificance. Myron Cruz MD MEDIA MGR SCAN EXT ORDR/RSLT documented in this encounter Visit Diagnoses Diagnosis Hodgkin lymphoma- Primary Hodgkin's disease, unspecified documented in this encounter Care Teams Apricot Packer Relationship Specialty Start Date End Date Arabella Villarreal MD [address] [place] [address] [address] PCP - General 09/16/11 documented as of this encounter
--- OUTSIDE RECORDS SUMMARY | 2024-04-07 01:44 | XMS_ITS | Encounter Summary ---
Author Organization [facility] [place] [address] Care Team Providers Care Yard Rigger Name Role Phone Arabella Villarreal MD Primary Care Provider [phone] Encounter Details Date Type Department Care Team (Late st Contact Info) Description 10/16/2011 Orders Only [place]ology [place] [address] Myron Cruz MD [facility] [address] HEMATOLOGY [place] [address] Hodgkin's lymphoma (Primary Dx) Social History Tobacco [...] as of this encounter Progress Notes * Any Espinoza RN - 10/16/2011 5:44 PM EDTAddended by: ANY ESPINOZA on: 10/16/2011 Modules accepted: Orders documented in this encounter Plan of Treatment Scheduled Orders Name Type Priority Associated Diagnoses Orde r Schedule Miscellaneous Lab request Lab Routine Hodgkin's lymphoma Expected: 10/17/2011 (Approximate), Expires: 10/18/2011 documented as of this encounter Results * (ABNORMAL) Comprehensive metabolic panel (non-fasting) (10/17/2011 9:26 AM EDT) Glucose 85 60 - 199 mg/dL CERNER MILLENNIUM Comment:Diabetes: >=200 mg/d L plus symptoms Blood Urea Nitrogen 8 8 - 18 mg/dL CERNER MILLENNIUM Creatinine 0.67(L) 0.70 - 1.20 mg/dL CERNER MILLENNIUM Comment: Please note that the pediatric reference intervals supplied above were not validated at [facility]. Results from pediatric [...] Lab Myron Cruz MD [facility] * (ABNORMAL) CBC (with Diff) (10/17/2011 9:26 [...] unspecified documented in this encounter Care Teams Yard Rigger Relationship Specialty Start Date End Date Arabella Villarreal MD [address] [place] [address] PCP - General 09/16/11 documented as of this encounter
--- OUTSIDE RECORDS SUMMARY | 2024-04-07 01:44 | XMS_ITS | Encounter Summary ---
[place] [address] Care Team Providers Care Desk Editor Name Role Phone Arabella Villarreal MD Primary Care Provider [phone] Encounter Details Date Type Department Care Team (Late st Contact Info) Description 10/17/2011 8:15 AM EDT Office Visit Hematology [place] [phone] Hodgkin's lymphoma (Primary Dx) Social History Tobacco [...] * Patient Instructions* Olga Espinoza RN - 10/17/2011 12:50 PM EDT Welcome to [facility], your secure online access to your electronic medical record at [facility]. Using [facility]asts you will be able to send messages to your providers, view your test results, renew prescriptions, schedule appointments, and much more. Follow these instructions to enter your personal [facility] account for the first time: 1. Start your internet browser and type [email or web address] into the address bar. 2. In the New User box on the right-hand side of the Welcome page click the link that states, ???I have an activation code.?? 3. On the Identification page, follow these steps: a) Enter your myD-H activation code: [email or web address] b) Expires: 12/01/11 12:50 PM IMPORTANT: This Activation Code will on the above mentioned date. If you do not sign up for myD-H by this date, you will need to request another activation code. c) Enter your date of , using the calendar tool provided. d) Enter your Zip code. e) Select ???submit?? to go to the next page. 4. On the Create Account page, follow these steps: a) Create a myD-H username. This can???t be changed, so choose one you won???t forget. b) Create a password that???s at least six characters long, and that contains at least two numbers.Your password can be changed at any time. Confirm your password by entering it once more. c) Enter your email address. This will be used to alert you to new information. Confirm your email address by entering it once more. d) Enter your security question. This will be used if you forget your password. e) Enter your security answer. Confirm your security answer by entering it once more. f) Select ???submit?? to view your electronic medical record. If you have any questions about myD-H or your Access Code, please call for [place], for [place] or for [place]. If you need technical support, please e-mail . Remember, myD-H is NOT for urgent needs! Always dial 911 for medical emergencies. documented in this encounter Progress Notes * Olga Espinoza RN - 10/17/2011 4:22 PM EDT RESEARCH NURSE OFFICE NOTE CYCLE #1 DAY #1 (ABVD) 10/17/2011 [id number]: Phase II Trial of Response-Adapted Therapy Based on Positron Emission Tomography (PET) for Bulky Stage I and Stage II Classical Hodgkin Lymphoma (HL) SUBJECTIVE Chasity presented to hem-onc clinic, accompanied by cousin Raven, for day 1 of cycle 1 of ABVD as per protocol. Evaluated by Dr. Cruz, please see his note for details. Chasity states that she feels well today and ready to proceed with treatment. Endorses some feelings of mild chest fullness atbaseline. Patient reports that she began her menstrual period today. Eligibility criteria reviewed and signed off by Dr. Cruz. STUDY ASSESSMENTS COMPLETED CBC, CMP, lab kit CHEMOTHERAPY I verified that the dose ordered is consistent with treatment plan per protocol. Dose calculation double-checked. Pt BSA-2.07; doxorubicin ordered dose/m2 = 25 mg/m2, total doxorubicin dose ordered =52 mg; bleomycin ordered dose/m2 = 10 units/m2, total bleomycin dose ordered = 21 units; vinblastine ordered dose/m2 = 6 mg/m2, total vinblastine dose ordered = 13 mg; dacarbazine ordered dose/m2 = 375 mg/m2, total dacarbazine dose ordered = 775 mg. EDUCATION PROVIDED Printed CP online MedSheets for Adriamycin, Bleomycin, Vinblastine, Dacarbazine, Ondansetron, Prochlorperazine, and Lorazepam previously provided. Administration and major side effects reviewed. Printed information, including study calendar with anticipated dates of treatment and restaging, temperature/white count chart, ACS Chemotherapy Principles: An In-depth Discussion--Safety precautions forpatients and their loved ones handout, medication/symptom tracking calendar, and [facility] Discharge Instructions: Chemotherapy booklet, provided. Reviewed contact information, sideeffects, and importance of calling for any new or worsening symptoms. Also discussed importance of maintaining oral hydration of at least 2-3 liters of non-caffeinated beverages per day for at least 48 hours following treatment. Per instruction of Dr. Cruz, Chasity advised to discontinue Sustenex (probiotic supplement that she is currently taking) during treatment and use TUMS if needed for heartburn. Instructions for my D-H enrollment provided via printed AVS today. PLAN 1. Subject agrees to continue on study [id number] per protocol. 2. Next visit (C1D15) to be scheduled for 10/31/11 to include: Labs, MD visit, and ABVD per protocol. Patient verbalizes understanding of, and agreement with, plan. Advised to contact this office for any questions/concerns, as well as for any new or worsening symptoms. * Olga Espinoza RN - 10/17/2011 3:37 PM EDT RESEARCH NURSE INFORMED CONSENT NOTE [id number]: Phase II Trial of Response-Adapted Therapy Based on Positron Emission Tomography (PET) for Bulky Stage I and Stage II Classical Hodgkin Lymphoma (HL) Date: 10/17/2011 Information Provided: Protocol was reviewed with Chasity including, a description of the proposed care, treatment, services, medications, interventions, procedures, and follow-up including duration of subject???s participation in study. Potential discomforts and risks were reviewed. The patient wasinformed regarding the uncertainties, both in terms of benefit as well as risks that are part of participation in clinical trials. Discussed confidentiality of patient???s health information as specified in the protocol. Pt was advised that she may discontinue treatment at any time and that refusing to participate or discontinuing treatment will not compromise the patient???s access to treatment options or care. The patient had previously been given written information regarding the protocol and states that she has reviewed the consent form at home in the interim. Chasity was given adequate time to ask questions and review concerns, all of which were answered to her satisfaction. Chasity inquired as to thefrequency of PET scanning, and whether another PET scan is standard after 4 cycles of chemotherapy.Informed that although another PET scan is not required per protocol after 4 cycles, she could discuss this possibility with Dr. Cruz if she would like. Reviewed PET scan frequency of after 2 cycles ABVD, and then at the completion of treatment per protocol. Assessment/Outcome: Chasity verbalized understanding of protocol and consents for treatment. Patient signed and dated consent, copy given to patient. Consent co-signed by Dr. Cruz. Original, signed informed consent document scanned into patient???s electronic medical record and original hard copy given to RAKESH Rosenbaum. Written informed consent was obtained prior to any study procedures being done. Plan: 1. Pt will be enrolled on study [id number], eligibility checklist reviewed and signed by Dr. Cruz. 2. C1D1 labs (and screening lab kit) to be obtained following this visit. 3. C1D1 infusion with ABVD to be completed today. Patient verbalizes understanding of, and agreement with, plan. Advised to contact this office for any questions/concerns, as well as for any new or worsening symptoms. documented in this encounter Plan of Treatment Scheduled Orders Name Type Priority Associated Diagnoses Orde r Schedule Miscellaneous Lab request Lab Routine Hodgkin's lymphoma Expected: 12/06/2011 (Approximate), Expires: 12/09/2011 documented as of this encounter Results * Sedimentation rate (12/06/2011 1:18 PM EDT) Sedimentation Rate Automated 17 0 - 20 mm/hr CERNER MILLENNIUM Blood specimen (specimen) 12/06/2011 1:18 PM EDT 12/06/2011 1:40 PM EDT Narrative Resulting Agency Comment Spec In Lab Myron Cruz MD [facility]AB [facility] * (ABNORMAL) CBC (with Diff) (12/06/2011 1:18 [...] metabolic panel (non-fasting) (12/06/2011 1:18 PM EDT) Glucose 95 60 - 199 mg/dL CERNER MILLENNIUM Comment:Diabetes: >=200 mg/d L plus symptoms Blood Urea Nitrogen 9 8 - 18 mg/dL CERNER MILLENNIUM Creatinine 0.81 0.70 - 1.20 mg/dL CERNER MILLENNIUM Comment: Please note that the pediatric reference intervals supplied above were not validated at [facility]. Results from pediatric patients should be interpreted [...] kidney disease. References: http://nkdep.nih.gov/resources/NKDEP_Suggestn4Labs_0606_508.pdf http://www.kidney.org/professionals/kls/pdf/faq_gfr.pdf Trish K, Hrei NA, Trey AK, Emeterio TS, Jian AD, [...] CERNER MILLENNIUM * (ABNORMAL) CBC (with Diff) (11/28/2011 9:05 AM EDT) White Blood Cell 1.8(Criti mario) 4.0 - 10.0 x10(3)/mc L CERNER MILLENNIUM Red Blood Cell 3.95 3.93 - 5.22 x10(6)/mc L CERNER MILLENNIUM Hemoglobin 11.1(L) 11.2 - 15.7 gm/dL CERNER MILLENNIUM Hematocrit 33.8(L) 34.0 - 45.0 % CERNER MILLENNIUM Mean Cell Volume 85.6 79.0 - 94.0 fL CERNER MILLENNIUM Mean Cell Hemoglobin 28.1 26.6 - 32.2 pg CERNER MILLENNIUM Mean Cell Hemoglobin Concentration 32.8 32.0 - 36.5 gm/dL CERNER MILLENNIUM Platelet 295 145 - 370 x10(3)/mc L CERNER MILLENNIUM RDW Standard Deviation 46.4(H) 35.0 - 46.0 fL CERNER MILLENNIUM RDW coefficient of variation 14.9(H) 10.9 - 14.4 % CERNER MILLENNIUM Mean Platelet Volume 9.4 9.0 - 12.0 fL CERNER MILLENNIUM Blood specimen (specimen) 11/28/2011 9:05 AM EDT 11/28/2011 9:14 AM EDT Narrative Resulting Agency Comment Spec In Lab Myron Cruz MD HEMATOLOGY ORDERAB LES CERNER MILLENNIUM * (ABNORMAL) CBC (with Diff) (10/31/2011 10:28 AM EDT) White Blood Cell 2.0(L) 4.0 - 10.0 [...] Lab Myron Cruz MD HEMATOLOGY ORDERAB LES [facility] Organization Address City/State/ZIP Co de Phone Number MAGDALENA CARTER documented in this encounter Visit Diagnoses Diagnosis Hodgkin's lymphoma- Primary Hodgkin's disease, unspecified documented in this encounter Care Teams Desk Editor Relationship Specialty Start Date End Date Arabella Villarreal MD [address] [place] [address] PCP - General 09/16/11 documented as of this encounter
--- OUTSIDE RECORDS SUMMARY | 2024-04-07 01:44 | XMS_ITS | Encounter Summary ---
Author Organization [facility] [place] [address] Care Team Providers Care Advertising Job Titles Name Role Phone Arabella Villarreal MD Primary Care Provider Encounter Details Date Type Department Care Team (Late st Contact Info) Description 10/07/2011 Orders Only Hematology [place] [address] Myron Cruz MD [facility] [address] [place] [address] Social History Tobacco Use Types Packs/Day Years [...] on filedocumented in this encounter Care Teams Advertising Job Titles Relationship Specialty Start Date End Date Arabella Villarreal MD [address] [place], [place] [id number] PCP - General 09/16/11 documented as of this encounter
--- OUTSIDE RECORDS SUMMARY | 2024-04-07 01:44 | XMS_ITS | Encounter Summary ---
Author Organization Formerly [facility] [place] [address] Care Team Providers Care Manager Business Planning Name Role Phone Arabella Villarreal MD Primary Care Provider [phone] Reason for Visit * Reason Onset Date Comments Follow-up Nausea 10/17/2011 Encounter Details Date Type Department Care Team (Late st Contact Info) Description 10/22/2011 Telephone Hematology [place] [id number] Myron Cruz MD [facility] [place] [address] Follow-up ; Nausea Social History Tobacco Use Types Packs/Day Years [...] Telephone Encounter - Olga Espinoza RN - 10/22/2011 10:41 AM EDT RESEARCH NURSE TELEPHONE NOTE [id number]: Phase II Trial of Response-Adapted Therapy Based on Positron Emission Tomography (PET) for Bulky Stage I and Stage II Classical Hodgkin Lymphoma (HL) Date: 10/22/2011 Time: 9:28 AM Study Day: C1D6 Reason for call: Follow-up (home) Spoke w/ Chasity who stated I had a really rough weekend (with nausea). Denies vomiting, but reports that nausea comes in waves, despite frequent dosing with 10mg Compazine when I wake up in the morning, before lunch, and before dinner. Also used Ativan throughout the weekend for continuing nausea, but since yesterday has only been taking Ativan at night because it makes me so tired. Endorses lightheadedness frequently, especially when she is stands up. Eating and drinking in small amounts frequently, feels that she is maintaining adequate intake. Chasity states that she noticed a tingling feeling in her mouth briefly, but used Biotene and has not experienced this since then. Also reports that the area on her hand where she received chemotherapy through a PIV last week hurt bad through the weekend and looked like a mosquito bite. Denies numbness/tingling in fingers, radiating pain up her arm, swelling, or redness. States that the tenderness improved without intervention. Chasity reports that she is also experiencing some problems with fatigue and insomnia. 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 Discuss[address] with Dr. Cruz; ok to take Zofran for nausea today, orders placed for compazine refilland scopolamine patch per MD request. Education Provided: Chasity advised that she may try Zofran today, as she is more than 72 hours post-chemotherapy. Discussed potential side effects of headache and constipation. Also discussed use of Scopolamine transdermal patch as needed for nausea refractory to Zofran or Compazine. Given instructions about application, dosage, and potential side effects of scopolamine. Chasity also encouraged to use warm compressto hand if needed (although she states the discomfort is resolving) and plan to request peripheral IV be placed in larger (i.e. Antecubital) vein for her C1D15 chemotherapy. Of note, Chasity states that she prefers to continue using peripheral IV site for C1D15 chemotherapy, although she is considering mediport placement for future cycles. Plan: 1. Pt will continue on study [id number] per protocol. 2. Scripts for compazine refill and scopolamine transdermal patch e-scribed to [facility] in [place], [place]. 3. Next visit (C1D15) scheduled for 10/31/11 to include: Labs, MD visit, ABVD per protocol. Patient verbalizes understanding of, and agreement with, plan. Advised to contact this office for any questions/concerns, as well as for any new or worsening symptoms. documented in this encounter Plan of Treatment Not on file documented as of this encounter Visit Diagnoses Diagnosis Hodgkin's lymphoma- Primary Hodgkin's disease, unspecified documented in this encounter Care Teams Manager Business Planning Relationship Specialty Start Date End Date Arabella Villarreal MD [address] [place] [address] [address] [place] [address] PCP - General 09/16/11 documented as of this encounter
--- OUTSIDE RECORDS SUMMARY | 2024-04-07 01:44 | XMS_ITS | Encounter Summary ---
Author Organization [facility] [place] [address] Care Team Providers Care Business Intelligence Architect Name Role Phone Arabella Villarreal MD Primary Care Provider [phone] Encounter Details Date Type Department Care Team (Latest Contact Info) Description 10/17/2011 8:30 AM EDT - 10/17/2011 11:59 PM EDT Hospital Encounter Hematology [place] [address] INFUSION THERAPY, MEDS None Myron Cruz MD [facility] [address] [place] [address] Hodgkin's lymphoma Discharge Disposition: Home Social History [...] Reading Time Taken Comments Blood Pressure 110/60 10/17/2011 2:56 PM EDT Pulse 95 10/17/2011 2:56 PM EDT Temperature 37 ??C (98.6 ??F) 10/17/2011 2:56 PM EDT Respiratory Rate 18 10/17/2011 2:56 PM EDT Oxygen Saturation 98% 10/17/2011 2:56 PM EDT Inhaled Oxygen Concentration - - [...] Gastroesophageal Reflux 04/02/19 23 vitamin 27 & [id number] 60 mg iron-1 mg tablet Take 1 tablet by mouth daily. 04/02/2022 documented as of this encounter Progress Notes * Kiesha Salas RN - 10/17/2011 4:05 PM EDT Patient Name: Chasity Gallo Patient Age: 31 y.o. Birthdate: 1980 Admit date: 10/17/2011 Attending Physician: Infusion Therapy,Meds TIME TREATMENT STARTED:1045 TIME TREATMENT ENDED: 1455 Chasity Gallo, 31 y.o. female with diagnosis of Hodgkin's lymphoma is here for chemotherapy infusion of ABVD. PROTOCOL: [id number] CYCLE: 1 WEEK: 1 DAY: 1 S: Pt. offers no complaints. O: Chemotherapy orders independently verified for drug name, route and dosage per patient's height,weight and BSA by Huong Hernandez RN and Kiesha Salas RN. REACTIONS (DESCRIPTION, TIME, INTERVENTION AND EFFECTIVENESS) none A: Pt. Tolerated treatment well. Chasity Gallo confirms that all questions and issues have been addressed. P: Return to clinic as scheduled. documented in this encounter Plan of Treatment Not on file documented as of this encounter Procedures Procedure Name Priority Date/Time Associated Diagnosis Comments CHEMOTHERAPY SCAN Routine 10/17/2011 documented in this encounter Results * Scan Doc: Chemotherapy (10/17/2011) Historical Provider MD RETANA MGR SCAN EX T ORDR/RSLT documented in this encounter Visit Diagnoses Diagnosis Hodgkin's lymphoma Hodgkin's disease, unspecified documented in this encounter Administered Medications Inactive Administered Medications - up to 3 most recent administrations Medication Order MAR Action Action Date Dose Rate Site acetaminophen (TYLENOL) tablet 650 mg 650 mg, Oral, ONCE, 1 dose, On Marleny 10/17/11 at 1115, Before bleomycin on day 1 and day 15. Maximum dose of acetaminophen is 4000 mg from all sources in 24 hours., Routine Given 10/17/2011 11:55 AM EDT 650 mg bleomycin (BLEOCIN) 21 Units in sodium chloride 0.9% 57 mL chemo infusion 21 Units, Intravenous, ONCE, 1 dose, On Marleny 10/17/11 at 1045, Administer over 30 Minutes, 1 unit = 1 mg New Bag 10/17/2011 1:18 PM EDT 21 Units 114 mL/hr dacarbazine (DTIC) 775 mg in dextrose 5% 327.5 mL chemo infusion 775 mg, Intravenous, ONCE, 1 dose, On Marleny 10/17/11 at 1045, Administer over 30 Minutes New Bag 10/17/2011 2:15 PM EDT 775 mg 655 mL/hr DOXOrubicin (ADRIAMYCIN) injection 52 mg 52 mg, Intravenous, ONCE, 1 dose, On Marleny 10/17/11 at 1045, Administer over 5 Minutes, Vesicant/irritant. Avoid extravasation. Given 10/17/2011 1:00 PM EDT 52 mg 312 mL/hr fosaprepitant (EMEND) 150 mg in sodium chloride 0.9% 155 mL infusion 150 mg, Intravenous, ONCE, 1 dose, On Marleny 10/17/11 at 1115, Administer over 30 Minutes, On day 1 and day 15, 30 minutes prior to chemotherapy. New Bag 10/17/2011 12:18 PM EDT 150 mg 310 mL/hr hydrocortisone sodium succinate (PF) (SOLU-CORTEF) injection 100 mg 100 mg, Intravenous, ONCE, 1 dose, On Marleny 10/17/11 at 1115, Before bleomycin on day 1 and day 15. Given 10/17/2011 11:58 AM EDT 100 mg LORazepam (ATIVAN) tablet 0.5-1 mg 0.5-1 mg, Oral, EVERY 4 HOURS PRN, Starting on Marleny 10/17/11 at 1050, Until Fri10/18/11 at 0226, Anxiety, Nausea, Vomiting, May give intravenously if unable to take orally., Routine Given 10/17/2011 11:06 AM EDT 1 mg palonosetron (ALOXI) injection 0.25 mg 0.25 mg, Intravenous, ONCE, 1 dose, On Marleny 10/17/11 at 1115, On day 1 and day 15 pre-chemotherapy., Routine Given 10/17/2011 11:56 AM EDT 0.25 mg vinBLAStine (VELBAN) chemo injection 13 mg 13 mg, Intravenous, ONCE, 1 dose, On Marleny 10/17/11 at 1045, Administer over 5 Minutes, FOR IV USE ONLY. FATAL IF GIVEN BY OTHER ROUTES. Vesicant/irritant Avoid extravasation Given 10/17/2011 1:06 PM EDT 13 mg 156 mL/hr documented in this encounter Care Teams Business Intelligence Architect Relationship Specialty Start Date End Date Arabella Villarreal MD [address] [place] [address] PCP - General 09/16/11 documented as of this encounter
--- OUTSIDE RECORDS SUMMARY | 2024-04-07 01:44 | XMS_ITS | Encounter Summary ---
Author Organization [facility] [place] [address] Care Team Providers Care Clinical Trial Leader Name Role Phone Arabella Villarreal MD Primary Care Provider [phone] Encounter Details Date Type Department Care Team (Latest Contact Info) Description 10/11/2011 2:06 PM EDT - 10/11/2011 11:59 PM EDT Hospital Encounter [place] [address] SCHEDULE 1, PFT Myron Cruz MD [facility] DR HEMATOLOGY [place] [address] Discharge Disposition: Home Social History Tobacco Use [...] Gastroesophageal Reflux 04/02/19 23 vitamin 27 & [id number]-[id number]-MO 60 mg iron-1 mg tablet Take 1 tablet by mouth daily. 04/02/2022 documented as of this encounter Plan of Treatment Not on file documented as of this encounter Procedures Procedure Name Priority Date/Time Associated Diagnosis Comments NM PET CT SKULL BASE TO MID-THIGH ([facility]) Routine 10/11/2011 4:29 PM EDT POCT GLUCOSE Routine 10/11/2011 2:33 PM EDT documented in this encounter Results * PET-CT SKULL BASE TO MID THIGH (10/11/2011 4:29 PM EDT) Anatomical Region Laterality Modality Other 10/11/2011 4:29 PM EDT Narrative 10/14/2011 8:02 AM EDT Examination PET/CT SKULL BASE TO MID-THIGH Technique Procedure:Following IV injection of 96-jbxgwn-8-deoxyglucose (FDG) and a standard uptake period, a non-contrast CT scan followed by a PET scan were acquired along the length of the body from the base of the skull to mid-thighs. The non-contrast CT was used for anatomic localization and photon attenuation correction of the PET scan. Blood Glucose Level (mg/dL):84 FDG Dose:13.9 mCi (0.15 mCi/kg to maximum of 18 mCi). Pre-medication: Alprazolam 0.5 mg PO Clinical History Hodgkin's lymphoma. ??Exam for staging. Comparison No prior PET-CT. CT chest/abdomen/ pelvis with contrast, 10/10/2011. Findings Head/neck: There are bilateral small hypermetabolic lower posterior cervical chain lymph nodes (level 5 b). ??Bilateral hypermetabolic supraclavicular nodes, right greater than left. ??On the right, the supraclavicular adenopathy is contiguous with the large superior mediastinal mass (see below). Chest: ??There is markedly hypermetabolic, conglomerate superior mediastinal, bilateral paratracheal, prevascular, and AP window adenopathy. ??No hilar adenopathy. The superior mediastinal mass produces mild leftward deviation of the trachea, without significant compression. ??There is no pulmonary nodule or mass, and no pleural or pericardial effusion. Abdomen/pelvis: ??An intensely hypermetabolic focus is seen in the region of the right ovary, better visualized on the contrast-enhanced CT obtained the previous day. ??Otherwise normal distribution of activity in the abdomen and pelvis. ??The spleen is normal in size and activity. Skeleton: ??There is mild diffuse increased marrow activity in the axial and visualized proximal appendicular skeleton, equal to or slightly greater in activity than the reference liver background. ??No focal osseous lesion is seen. Impression ? 1. Hypermetabolic bilateral cervical, supraclavicular, and mediastinal adenopathy, consistent with known diagnosis of Hodgkin lymphoma. ? 2. Hypermetabolic focus in the region of the right ovary, most likely physiologic in nature. ??Lymphomatous involvement is unlikely. ? 3. Mild diffuse increased marrow activity may be reactive, and diffuse involvement with lymphoma is felt to be less likely. Thank you for referring this patient to the [facility] PET Center Film and interpretation reviewed by the attending Procedure Note Nakul Kat MD - 10/14/2011 Examination PET/CT SKULL BASE TO MID-THIGH Technique Procedure:Following IV injection of 79-crhqdc-4-deoxyglucose (FDG) and a standard uptake period, a non-contrast CT scan followed by a PET scan were acquired along the length of the body from the base of the skull tomid-thighs. The non-contrast CT was used for anatomic localization and photonattenuation correction of the PET scan. Blood Glucose Level (mg/dL):84 FDG Dose:13.9 mCi (0.15 mCi/kg to maximum of 18 mCi). Pre-medication: Alprazolam 0.5 mg PO Clinical History Hodgkin's lymphoma. Exam for staging. Comparison No prior PET-CT. CT chest/abdomen/ pelvis with contrast, 10/10/2011. Findings Head/neck: There are bilateral small hypermetabolic lower posteriorcervical chain lymph nodes (level 5 b). Bilateral hypermetabolic supraclavicularnodes, right greater than left. On the right, the supraclavicular adenopathy is contiguous with the large superior mediastinal mass (see below). Chest: There is markedly hypermetabolic, conglomerate superiormediastinal, bilateral paratracheal, prevascular, and AP window adenopathy. No hilar adenopathy. The superior mediastinal mass produces mild leftward deviationof the trachea, without significant compression. There is no pulmonarynodule or mass, and no pleural or pericardial effusion. Abdomen/pelvis: An intensely hypermetabolic focus is seen in the regionof the right ovary, better visualized on the contrast-enhanced CT obtained the previous day. Otherwise normal distribution of activity in the abdomenand pelvis. The spleen is normal in size and activity. Skeleton: There is mild diffuse increased marrow activity in the axialand visualized proximal appendicular skeleton, equal to or slightly greater in activity than the reference liver background. No focal osseous lesion isseen. Impression 1. Hypermetabolic bilateral cervical, supraclavicular, andmediastinal adenopathy, consistent with known diagnosis of Hodgkin lymphoma. 2. Hypermetabolic focus in the region of the right ovary, most likely physiologic in nature. Lymphomatous involvement is unlikely. 3. Mild diffuse increased marrow activity may be reactive, anddiffuse involvement with lymphoma is felt to be less likely. Thank you for referring this patient to the [facility] PET Center Film and interpretation reviewed by the attending Myron Cruz MD [facility] PET ORDERABLES * POCT GLUCOSE LAB USE ONLY (10/11/2011 2:33 PM EDT) Pathologist [facility] Glucose, POC 81 60 - 199 mg/dL [facility] Comment: Supplemental ranges: <110 mg/dL before meals <200 mg/dL all other times of the day Blood specimen (specimen) 10/11/2011 2:33 PM EDT 10/11/2011 2:33 PM EDT Myron Cruz MD POINT OF CARE TEST ORDERABLES MAGDALENA CARTER documented in this encounter Visit Diagnoses Not on filedocumented in this encounter Administered Medications Inactive Administered Medications - up to 3 most recent administrations Medication Order MAR Action Action Date Dose Rate Site ALPRAZolam (XANAX) tablet 0.5 mg 0.5 mg, Oral, ONCE, 1 dose, On Fri10/11/11 at 1330, Routine Given 10/11/2011 2:30 PM EDT 0.5 mg iohexol (OMNIPAQUE) 350 mg/mL injection 17,500 mg 17,500 mg (50 mL), Oral, ONCE PRN, 1 dose, Starting on Fri10/11/11 at 1448, Until Fri10/11/11 at 1449, Per Protocol, Routine Given 10/11/2011 2:49 PM EDT 17,500 mg documented in this encounter Care Teams Clinical Trial Leader Relationship Specialty Start Date End Date Arabella Villarreal MD [address] [place] [address] [address] [place] [address] PCP - General 09/16/11 documented as of this encounter
--- OUTSIDE RECORDS SUMMARY | 2024-04-07 01:44 | XMS_ITS | Encounter Summary ---
[place] [address] Care Team Providers Care Geothermal Hvac Technician Name Role Phone Arabella Villarreal MD Primary Care Provider [phone] Encounter Details Date Type Department Care Team (Latest Contact Info) Description 09/24/2011 11:00 AM EDT Clinical [place] [address] Mediastinal mass (Primary Dx) Social History Tobacco Use Types [...] as of this encounter Progress Notes * Lauren Snider RN - 09/24/2011 10:53 AM EDT Patient Name: Chasity Gallo Patient Age: 31 y.o. Birthdate: 1980 Admit date: (Not on file) Attending Physician: No att. providers found Pre-anesthesia questionnaire reviewed with patient. No previous issues with anesthesia. Takes ranitidine for ocassional GERD. Patient states there is a possibility that she could be , but that it is unlikely. LMP August 31. Pre-op folder reviewed with patient and all questions addressed. Labs drawn. documented in this encounter Plan of Treatment Not on file documented as of this encounter Visit Diagnoses Diagnosis Mediastinal mass- Primary Swelling, mass, or lump in chest documented in this encounter Care Teams Geothermal Hvac Technician Relationship Specialty Start Date End Date Arabella Villarreal MD [address] [place] [address] [address] [facility] [address] [place] [address] PCP - General 09/16/11 documented as of this encounter
--- OUTSIDE RECORDS SUMMARY | 2024-04-07 01:44 | XMS_ITS | Encounter Summary ---
Author Organization [facility] [place] [address] Care Team Providers Care Pre Kindergarten Teacher Name Role Phone Arabella Villarreal MD Primary Care Provider [phone] Encounter Details Date Type Department Care Team (Late st Contact Info) Description 10/10/2011 1:11 PM EDT Anesthesia Event [place] [phone] Panda Wayne MD [facility] [address] [place] [address] Anesthesia Record Procedure Summary Procedure Name Responsible Anesthesiologist Anesthesia Start Time Anesthesia Stop Time (MSURG) BONE MARROW BIOPSY; DIAGNOSTIC (WRVU 1.28) Panda Wayne MD 10/10/11 1311 10/10/11 1430 Events Date Time Event Comment 10/10/2011 1311 Start 1318 1430 Stop Meds * Agents No agents on file. * Blood No blood administrations on file. Lines, Drains, and Airways Type Details Placement Removal (RETIRED) Wound 10/10/11 1420 by Ofe Akhtar RN Incision 09/25/11; 0757; neck; 10/29/21 (LDA cleanup utility RA#[id number]); 1715 (LDA cleanup utility RA#[id number]) 09/25/11 0757 by Migdalia Nation, RN 10/29/21 1715 by Edmund Whitlock (RETIRED) Peripheral IV Line - Single Lumen 10/10/11; 1245; 10/10/11; 1535 10/10/11 1245 by Carlitos Wilhelm 10/10/11 1535 by Melisa Orozco, RN documented in this encounter Social History Tobacco [...] of this encounter OR Notes * Anesthesia Preprocedure Evaluation - Panda Wayne MD - 10/10/2011 1:17 PM EDT Anesthesia Evaluation Patient summary reviewed and [...] (H/H 12/31). Abdominal Anesthesia Plan ASA 2 MAC with intravenous induction Pt here for BMBx under sedation. Anesthetic plan and risks discussed with patient. Plan discussed with attending. documented in this encounter Plan of Treatment Not on file documented as of this encounter Visit Diagnoses Not on filedocumented in this encounter Care Teams Pre Kindergarten Teacher Relationship Specialty Start Date End Date Arabella Villarreal MD [address] [place] [address] PCP - General 09/16/11 documented as of this encounter
--- OUTSIDE RECORDS SUMMARY | 2024-04-07 01:44 | XMS_ITS | Encounter Summary ---
Author Organization [facility] Address [facility] [place] [address] Care Team Providers Care Swatch Folder Name Role Phone Arabella Villarreal MD Primary Care Provider [phone] Encounter Details Date Type Department Care Team (Latest Contact Info) Description 10/17/2011 8:29 AM EDT - 10/17/2011 11:59 PM EDT Hospital [place] [phone] CLINIC, Myron Denney MD [facility] [place] [address] Discharge Disposition: Home Social History Tobacco Use [...] Gastroesophageal Reflux 04/02/19 23 vitamin 27 & [id number]-AQ 60 mg iron-1 mg tablet Take 1 tablet by mouth daily. 04/02/2022 documented as of this encounter Plan of Treatment Not on file documented as of this encounter Visit Diagnoses Not on filedocumented in this encounter Care Teams Swatch Folder Relationship Specialty Start Date End Date Arabella Villarreal MD [address] [place] [address] PCP - General 09/16/11 documented as of this encounter
--- OUTSIDE RECORDS SUMMARY | 2024-04-07 01:44 | XMS_ITS | Encounter Summary ---
Author Organization [facility] [place] [address] Care Team Providers Care Awnings Mechanic Name Role Phone Arabella Villarreal MD Primary Care Provider [phone] Reason for Visit * Reason Onset Date Comments Follow-up 10/23/2011 Encounter Details Date Type Department Care Team (Late st Contact Info) Description 10/23/2011 Telephone [place]ology [place] [phone] Myron Cruz MD [facility] [address] HEMATOLOGY [place] [address] Follow-up Social History Tobacco Use Types Packs/Day [...] Telephone Encounter - Olga Espinoza RN - 10/23/2011 6:08 PM EDT RESEARCH NURSE TELEPHONE NOTE [id number]: Phase II Trial of Response-Adapted Therapy Based on Positron Emission Tomography (PET) for Bulky Stage I and Stage II Classical Hodgkin Lymphoma (HL) Date: 10/23/2011 Time: 5:52 PM Study Day: C1D6 Reason for call: Follow-up (home) Spoke w/ Chasity who stated that she is still feeling quite nauseated this morning. Hawkins well aftertaking compazine yesterday at lunchtime, without need for anti-emetics throughout last evening (didnot take Ativan prior to bed as she had been previously). Chasity states that she really noticed animprovement with regards to her energy level and clarity of thought last evening, which she attributes to not having taken Compazine as frequently yesterday. Awoke last evening at 12:30 am, feeling nauseous and took Zofran, which allowed her to sleep until this morning. She felt nauseous again at 8am and therefore took another dose of Zofran, which gave her a mild headache. After checking her tem perature, she took Excedrin (as she does when she usually has a headache) with good effect. However, she was nauseous again by 10:45 am, at which time she took Compazine and had to leave work as she wasn't feeling well. Chasity states that her mornings are usually the worst time of day for nausea. Has not used the scopolamine patch yet. Denies vomiting or any further episodes of dizziness; maintaining good oral intake. Education Provided: Advised Chasity to take antiemetic (Zofran, Ativan) tonight before bed, as well as a dose of Zofrantomorrow when she wakes up (even if not nauseated). Advised that she may repeat the Zofran in 8 hours tomorrow and also take Excedrin if needed for mild headaches after checking her oral temperature.Encouraged Chasity to call me tomorrow if these measures are not working, as she feels cloudy on the Compazine and is supposed to attend an in-service at work all day tomorrow. Plan: 1. Pt will continue on study [id number] per protocol. 2. Next visit 10/31/11 for C[address] Cruz made aware. Patient verbalizes understanding of, and agreement with, plan. Advised to contact this office for any questions/concerns, as well as for any new or worsening symptoms. documented in this encounter Plan of Treatment Not on file documented as of this encounter Visit Diagnoses Not on filedocumented in this encounter Care Teams Awnings Mechanic Relationship Specialty Start Date End Date Arabella Villarreal MD [address] [place] [address] PCP - General 09/16/11 documented as of this encounter
--- OUTSIDE RECORDS SUMMARY | 2024-04-07 01:45 | XMS_ITS | Encounter Summary ---
[place] [address] Care Team Providers Care Warehouse Checker Name Role Phone Arabella Villarreal MD Primary Care Provider [phone] Encounter Details Date Type Department Care Team (Late st Contact Info) Description 09/24/2011 9:30 AM EDT Office Visit Hematology [place] [phone] CLINIC, Courtney Leggett MD Neck mass (Primary Dx) Discharge Disposition: Home Social History [...] Sign Reading Time Taken Comments Blood Pressure 125/65 09/24/2011 9:29 AM EDT Pulse 79 09/24/2011 9:29 AM EDT Temperature 36.6 ??C (97.9 ??F) 09/24/2011 9:29 AM ED T Respiratory Rate 20 09/24/2011 9:29 AM EDT Oxygen Saturation 100% 09/24/2011 9:29 AM EDT Inhaled Oxygen Concentration - - Weight 90.5 kg (199 lb 8.3 oz) 09/24/2011 9:29 A M EDT Height 169.5 cm (5' 6.73) 09/24/2011 9:29 AM ED T Body Mass Index 31.5 09/24/2011 9:29 AM EDT documented in this encounter Progress Notes * Braydon Lazaro MD - 09/24/2011 10:03 AM EDT Thoracic Surgery Clinic Note ID: Chasity Gallo is a 31 y.o. female who presents with a mediastinal mass This patient was seen as an inpatient on 06/12 and the HPI is taken from that encounter HPI: Chasity Gallo is a 31 y.o. female who was transferred from [facility] with right neck swelling. She states that she was in her usual state of health until she woke up yesterday and had right neck pain and she assumed she had pulled a muscle, but the pain progressed until she came in for medical assessment today when she noted that her right neck was visibly swollen and she felt a fullness while swallowing. She feels that it has been stable over the last several hours. At the OSH a CT scan was performed which showed a right neck mass extending into the chest which appeared c/w a hematoma and she was transferred for further evaluation. She denies any history of trauma to her neck. Denies a h/o easy bleeding, though she is mildly anemic (Hb around 11, per her report) and she has undergone upper endoscopy on July 01 and hemoccult blood test which were both negative. Of note, she had a toe surgery two weeks ago and was taking 600mg ibuprofen Q6 hrs for 2-3 days following surgery, but then stopped. She took one more 600mg dose yesterday because of the neck pain. Besides this, she does not take NSAIDS, ASA, or other anticoagulation. She has had some dysphagia andfeeling that her throat is tight, but is able to tolerate a regular diet and liquids. She has nothad trouble breathing. This has never happened to her before. The patient had partial resolution of her neck mass during her hospitalization and was discharged home with the plan to return for IR core bx a few days following. Unfortunately this was non-diagnostic for her. She returns to clinic today stating that since her discharge she states that almost all of the swelling has gone down. The states that she occasionally still has a pain in her neck when she wakes up and needs some pain medication, but otherwise states that she has been doing really well. She states that she has lost 5 lbs in the last week which she attributes to lower appetite and stress surrounding recent events. She denies fevers, chills, night sweets, diet or bowel habit changes or any other systemic symptoms. No past medical history on file. Occasional anemia with workup ongoing with PCP. No past surgical history on file. Two surgery about 4 weeks ago History Social History ??? Marital Status: Spouse [...] History Narrative ??? No narrative on file No family history on file. No Known Allergies Current outpatient prescriptions ordered prior to encounter Medication Sig Dispense Refill ??? ranitidine (ZANTAC) 150 mg tablet Take 150 mg by mouth daily as needed. Indications: Gastroesophageal Reflux ? ? vitamin 27 & [id number] 60 mg iron-1 mg tablet Take 1 tablet by mouth daily. ??? OXYcodone-acetaminophen (ROXICET) 5-325 mg/5 mL solution Take 5-10 mLs by mouth every 4 hours as needed for Pain. 300 mL 0 Current facility-administered medications ordered prior to encounter Medication Dose Route Frequency Provider Last Rate Last Dose ??? iohexol (OMNIPAQUE) 350 mg/mL injection 21,000 mg 60 mL Intravenous Once PRN Paula Lucero MD Last Dose: 92151 mg at 09/24/11 0913 Review of Systems: General:[-] weight change [-] fever/chills. EENT: [-] change vision [-] change hearing [-] vertigo Cardiac: [-] cp [-] SOB [-] h/o CT Pulm: [-] Dypnea [-] wheezing [-] cough GI: [-] n/v [-] diarrhea [-] constipation [-] difficulty swallowing [-] melena [-] hematechesia. [-] reflux MSK: [-] weakness [-] muscle pains Neuro: [-] weakness [-] paresthesias [-] difficulty speaking Heme: [-] hx of bleeding or clotting disorders Endo: [-] hx of DM or thyroid problems Temp: [36.6 ??C (97.9 ??F)] Heart Rate: [79] Resp: [20] BP: (125)/(65) SpO2: [100 %] Physical Exam: NAD MMM Some fullness in the right neck, significantly improved since previous visit. There is a more prominent area in the medial right supraclavicular area that is soft, mobile, non-tender. RRR CTAB ABD: s/nt/nd Ext: normal warm No results found for this or any previous visit (from the past 24 hour(s)). Radiology: CT scan today Large multi lobulated anterior mediastinal mass with a ring-enhancing cystic component in the right neck. Assessment: Chasity Gallo is a 31 y.o. female with mediastinal and neck mass. Differential diagnosis is broadbut certainly includes, but is not limited to thymoma, lymphoma, or other tumor. The acute expansion surrounding her previous admission was likely related to hemorrhage and has resolved. Plan: Pre-operative testing today including coags, CBC, BMP Patient consented for surgery tomorrow Plan for right supra-clavicular mass biopsy as well as cervical mediastinoscopy and biopsy. I saw, interviewed and examined the patient. I have personally reviewed the above history, relevantnotes, exams and studies. I agree with the details as written. The assessment and plan were formulated in discussion with me. I agree with both as documented. In short, Shanna Gallo is a 31 yo female with a mediastinal mass with extension into the neck. Shepresented [address] Sánchez with an enlarging neck mass which sounds most like an inflammatory or hemorrhage of the mass. This was biopsied last week, but was nondiagnostic. At this time, sheis feeling well, largely without symptoms. We discussed the need for a meaningful biopsy. I talked about both a cervical biopsy and cervical mediastinoscopy with biopsy. Risks discussed include but are not limited to bleeding; pain; infection; injury to chest structures including but not limited to heart, lungs, great vessels, nerves and esophagus; prolonged hospital/ICU stay; CT; arrhythmia; pneumonia; oxygen dependence; stroke and . Risks specific to mediastinoscopy are massive bleeding requiring a sternotomy, in which case the mortality is very high. Alternatively, we could pursue other modalities of needle biopsy, but would not likely get enough tissuefor a diagnosis. The patient wanted to proceed with surgery. I answered all of the patient's questions to her satisfaction. Plan: Surgery tomorrow for right cervical biopsy and cervical mediastinoscopy with biopsy of mediastinal mass. 30 minutes of this 40 minute visit were spent in counseling and coordination of care. documented in this encounter Miscellaneous Notes * Miscellaneous - Juan Daniel, Prom Burn Off Operator - 10/02/2011 7:38 AM EDT * Miscellaneous - Juan Daniel, Prom Burn Off Operator - 09/26/2011 5:53 AM EDT documented in this encounter Plan of Treatment Not on file documented as of this encounter Results * Prothrombin Time (09/24/2011 11:07 AM EDT) Prothrombin Time 13.8 11.9 - 14.7 sec MAGDALENA CARTER Comment: [facility] Transfusion Committee Guidelines: INR less than 2.0, PTT less than OR equal to 43.5 seconds, or Fibrinogen greater than or equal to 100 mg/dl indicate adequate procoagulant activity for hemostasis in patients without underlying bleeding disorders. International Normalization Ratio 1.0 0.9 - 1.1 MAGDALENA CARTER Blood specimen (specimen) 09/24/2011 11:07 AM EDT 09/24/2011 11:33 AM EDT Narrative Resulting Agency Comment Spec In Lab Courtney Garcia MD HEMATOLOGY ORDERABLE S CERNER MILLENNIUM * (ABNORMAL) Comprehensive metabolic panel (non-fasting) (09/24/2011 11:07 AM EDT) [facility] Glucose 84 60 - 199 mg/dL CERNER MILLENNIUM Comment:Diabetes: >=200 mg/d L plus symptoms Blood Urea Nitrogen 12 8 - 18 mg/dL CERNER MILLENNIUM Creatinine 0.64(L) 0.70 - 1.20 mg/dL CERNER MILLENNIUM Comment: Please note that the pediatric reference intervals supplied above were not validated at [facility]. Results from pediatric patients should be interpreted [...] In Lab Courtney Garcia MD CHEMISTRY ORDERABLES MAGDALENA CARTER * (ABNORMAL) CBC (with Diff) (09/24/2011 11:07 AM EDT) White Blood Cell 7.5 4.0 - 10.0 x10(3)/mc L MAGDALENA CARTER Red Blood Cell 3.79(L) 3.93 - 5.22 [...] Lab Courtney Garcia MD HEMATOLOGY ORDERABLE S MAGDALENA CARTER documented in this encounter Visit Diagnoses Diagnosis Neck mass- Primary Swelling, mass, or lump in head and neck documented in this encounter Care Teams Warehouse Checker Relationship Specialty Start Date End Date Arabella Villarreal MD [address] [place] [address] PCP - General 09/16/11 documented as of this encounter
--- OUTSIDE RECORDS SUMMARY | 2024-04-07 01:45 | XMS_ITS | Encounter Summary ---
[place] [address] Care Team Providers Care Olericulture Teacher Name Role Phone Bre Ortega Primary Care Provider Encounter Details Date Type Department Care Team (Late st Contact Info) Description 09/12/2011 Orders [place] [phone] Julius Payne Jr., MD Social History Tobacco Use Types Packs/Day [...] on filedocumented in this encounter Care Teams Olericulture Teacher Relationship Specialty Start Date End Date Bre Ortega PA PCP - General 05/30/11 09/15/11 documented as of this encounter
--- OUTSIDE RECORDS SUMMARY | 2024-04-07 01:45 | XMS_ITS | Encounter Summary ---
Author Organization [facility] [place] [address] Care Team Providers Care Manager Housekeeping Name Role Phone Bre Ortega Primary Care Provider [phone] Encounter Details Date Type Department Care Team (Latest Contact Info) Description 09/12/2011 3:50 PM EDT - 09/13/2011 2:58 PM EDT Hospital Encounter [address] [place] [address] Julius Payne Jr., MD Paydarfar, Joseph A, MD [facility] [address] Discharge Disposition: Home Social History Tobacco Use [...] Sign Reading Time Taken Comments Blood Pressure 130/79 09/13/2011 12:38 PM EDT Pulse 108 09/13/2011 12:38 PM EDT Temperature 36.7 ??C (98.1 ??F) 09/13/2011 12:38 PM E DT Respiratory Rate 20 09/13/2011 12:38 PM EDT Oxygen Saturation 100% 09/13/2011 12:38 PM EDT Inhaled Oxygen Concentration - - Weight 92 kg (202 lb 13.2 oz) 09/12/2011 5:15 PM EDT Height 170.2 cm (5' 7) 09/12/2011 5:15 PM EDT Body Mass Index 31.77 09/12/2011 5:15 PM EDT documented in this encounter Discharge Instructions * Discharge Instructions* Roseanna Cruz RN - 09/17/2011 5:35 PM EDT [facility] Vascular and Interventional Radiology Biopsy Discharge Instructions Liver, kidney or bone biopsy: call your doctor immediately if you develop a sudden onset of weakness, increased pain or swelling at the biopsy site or heavy bleeding at the biopsy site. Activity And Diet: Go home and rest quietly for the remainder of the day. You may resume your normal activities tomorrow. Resume your usual diet after the procedure. Do not drive, sign any important/legal documents, or make any important decisions for 24 hours following sedation medications. When to call your healthcare provider: If you see any redness, swelling or drainage at the biopsy site. If you develop chills. If you have a fever greater than or equal to 101 degrees Fahrenheit. If you develop pain around the biopsy site. Bandage: Check the dressing/bandaid throughout the day for an increase in drainage. Keep the biopsy site dryfor 24 hours. Replace the bandaid as needed. You may shower 24 hours after the biopsy. Medication: DO NOT take aspirin-containing products, ibuprofen, or blood-thinning medication for the next 24 hours unless your doctor says you may do so. Generally you may use acetaminophen as needed for discomfort unless you have liver disease and are instructed not to take acetaminophen. Biopsy Results The results of your biopsy should be available within 5 business days and will be reported to you by your primary property caretaker or the clinician who ordered the biopsy. Please do not call us for results as we will not have them. If you have not been contacted by your clinician within 5 business days you should call that officefor further information. When to call the Interventional Radiology Department: Please call with any questions or concerns. If it is during regular office hours, please call [phone]. If it is after regular office hours, or on weekends or holidays, please call [phone] and ask to speak to the Event Planning Intern grounds person for Interventional Radiology. X You have received medication during your procedure to help lesson anxiety and keep you comfortable. These medications affect judgement and reaction time. We recommend that you do not drive, operateequipment, sign any important documents, or smoke unattended [...] please contact your M. D. Revised 03/15/11 * Patient Instructions* Anuj Knight - 09/13/2011 12:28 PM EDT Discharge instructions for ENT patients RESTRICTIONS: - Avoid strenuous activity for one to two weeks - Don't take aspirin or blood thinner until OK'd by your physician - Check with your physician before driving a car RECOMMENDATIONS: - Stool softener, mild laxatives or enemas if needed to avoid straining with a bowel movement - Take Tylenol for a low grade fever (less than 100 degrees F) DIET: - Soft foods - Increase intake of fluids, vegetables, fresh fruit, fiber to avoid constipation COMFORT: - May have a prescription for pain medication, take as directed by your doctor - Elevate your head at night CALL YOUR DOCTOR IF: - Increased, continued or a different type of pain occurs - Breathing problems - Temperature greater than 101 degrees F - Increased swelling - Signs or symptoms of infection Follow up: You will have an appointment made to obtain a biopsy on September 17, 2011. You will be contactedregarding the time for this. documented in this encounter Medications at Time of Discharge Medication Sig Dispensed Refills Start Date End Date OXYcodone-acetaminop hen (ROXICET) 5-325 mg/5 mL solution Take 5-10 mLs by mouth every 4 hours as needed for Pain. 300 mL 0 09/13/2011 09/25/2011 ranitidine (ZANTAC) 150 mg tabletIndications:ga stroesophageal reflux disease Take 150 mg by mouth daily as needed. Indications: Gastroesophageal Reflux 04/02/19 23 vitamin 27 & [id number] 60 mg iron-1 mg tablet Take 1 tablet by mouth daily. 04/02/2022 documented as of this encounter Progress Notes * Roseanna Cruz RN - 09/17/2011 6:29 PM EDT Pt sitting up eating dinner. I feel much better now that I ate Visiting with family, NAD. Discharge instructions given to patient and family * Roseanna Cruz RN - 09/17/2011 5:[address] Rodrigues at bedside * Roseanna Cruz RN - 09/17/2011 5:42 PM EDT Pt does c/o right neck pain like I was having before.the patient taking own roxicet * Woodrow Lyons DO - 09/17/2011 3:05 PM EDT CV: RRR, no m/r/g Lungs: CTAB Abd: Non-tender, distended ASA Classification _x__ Class 1 Healthy patient, no medical problems ___ Class 2 Mild systemic disease ___ Class 3 Severe systemic disease, but not incapacitating ___ Class 4 Severe systemic disease that is a constant threat to life ___ Class 5 Moribund, not expected to live 24 hours irrespective of operation Mallampati Classification ___ Class I: soft palate, fauces, uvula, pillars __x_ Class II: soft palate, fauces, portion of uvula ___ Class III: soft palate, base of uvula ___ Class IV: hard palate only Addendum: The patient's history and physical exam have been reviewed and completed and there has been no interval change from that of the pre-operative history and psychical exam completed within the past 30 days. * Jory Jackson RN - 09/13/2011 4:57 PM EDT VIR NURSING DATABASE Name: VIDHI PEREZ Date of : 1980 AGE 31 y.o. [address]: [address] [place] [id number] (home) Mobile: No relevant phone numbers on file. Referring Provider: Emile Garzon Reason for Visit: Bilateral bx anterior mediastinal mass CT guided lung biopsy Date to be done (approx) : Reason for exam and clinical history: Need biopsy of anterior mediastinal mass. (Please direct questions regarding location and number of biopsies to Dr. Sánchez.) Is the patient ? Unknown Where will study be performed? [facility] Laterality Bilateral Requested Date 09/17/2011 No Known Allergies Pertinent PMH: MRI suggests an infiltrating mass throughout the mediastinum extending into the base of the neck surrounding the great vessels. Differential includes lymphoma (Hodgkins, B-Cell), Thymoma, Carcinoma Dysphagia and trismus Pertinent PSH: History reviewed. No pertinent past surgical history. Social Hx: No smoking Drinks socially Date/Procedure Comments: 09/17/11 CT Guided Mediastinal Biopsy Versed 6mg/Fent 300mcg. Maykel well. Laboratory Results: No results found for this basename: inr No results found for this basename: PT, PTT Lab Results Component Value Date BUN 5* 09/13/2011 Lab Results Component Value Date CREATININE 0.54* 09/13/2011 Lab Results Component Value Date K 3.7 09/13/2011 Lab Results Component Value Date PLATELET 344 09/13/2011 Medications: Prior to Admission medications Medication Sig Start Date End Date Taking? Authorizing Provider ranitidine (ZANTAC) 150 mg tablet Take 150 mg by mouth daily as needed. Indications: Gastroesophageal Reflux Yes Historical Provider, OXYcodone-acetaminophen (ROXICET) 5-325 mg/5 mL solution Take 5-10 mLs by mouth every 4 hours as needed for Pain. 09/13/11 Anuj Knight MD vitamin 27 & [id number]-[id number]-EK 60 mg iron-1 mg tablet Take 1 tablet by mouth daily. Historical Provider, * Lalito Sánchez MD - 09/13/2011 1:42 PM EDT Patient Name: Vidhi Perez Patient Age: 31 y.o. Birthdate: 1980 Admit date: 09/12/2011 Attending Physician: David Villagomez MD Patient seen today following MRI. Review of MRI suggests an infiltrating mass throughout the mediastinum extending into the base of the neck surrounding the great vessels. Differential includes lymphoma (Hodgkins, B-Cell), Thymoma, Carcinoma. Needle bx is likely to get the dx of B-Cell lymphoma or carcinoma, while Hodgkins may require additional tissue. Plan is currently for her to have a core needle bx of the tissue behind the clavicular head on Friday. If this is negative, then additional tissue will be needed. I will tentatively schedule her for a procedure (likely rt VATS bx) on 09/25/11.This will allow sufficient time for appropriate path studies to be carried out. * Anuj Knight - 09/13/2011 6:59 AM EDT Resident Inpatient Progress Note ID: Vidhi Perez is a 31 y.o. female who presented yesterday with increasing neck mass that extends to the mediastinum. 24hr events- No acute events overnight. Subjective: This morning she feels like her neck is less full and has less pain when moving her neck. She is also less tender to palpation in the area. O: Temp: [36 ??C (96.8 ??F)-37.3 ??C (99.1 ??F)] Heart Rate: [71-88] Resp: [16-20] BP: (104-118)/(56-69) SpO2: [93 %-100 %] I/O last 3 completed shifts: In: 120 [P.O.:120] Out: - I/O this shift: In: 480 [P.O.:480] Out: - Physical Exam Gen: NAD ENT: Good ROM in neck, slightly tender to palpation, palpabl decrease in size of the neck mass thismorning, though still an obvious mass. No fluctuance, no subcutaneous air. No erythema or ecchymosis. Cardio: RRR, no m/g/r/ Pulm: CTAB Abd: S,NT, ND Imaging MRI of neck obtained last night, appears to show a well circumsized mass with extension into the mediastinum, still waiting for official read from radiology. Will discuss with radiology this morning. ASSESSMENT: Vidhi Perez is a 31 y.o. female with palpable neck mass. She has improved overnightwith only pain management. She has had no difficulty breathing to this point. She has been afebrile. Following discussion with radiology will possibly need biopsy to further evaluate mass. PLAN: ENT: oxycodone-acetaminophen for pain, will continue to watch for now. Will possibly need biopsy tofurher identify mass. CV: no issues PULM: no issues GI: Senna-docusate Fluids, elctrolytes, and feeding: continue IVF until patient cleared for diet, pending decision to obtain biopsy PROPHYLAXIS: SCD's DISPO: floor documented in this encounter H&P Notes * Louise Gross MD - 09/12/2011 2:07 PM EDT Otolaryngology H&P CC: neck swelling HPI:31 y.o. woman transferred from [facility] with right neck swelling. She was in her usual state of health until she woke up yesterday and had right neck pain. She assumed she had pulled a muscle, but the pain progressed. She had trouble sleeping last due to the pain, and when she woke up this morning,she noted that her right neck was visibly swollen. The swelling and pain have continued to slowly progress over the course of today. She presented to the local ED where a CT scan was performed which showed a right neck mass extending into the chest which appeared c/w a hematoma and she was transferred here for further evaluation. She denies any history of trauma to her neck. Denies a h/o easy blee ding, though she is mildly anemic (Hb around 11, per her report) and she has undergone GI endoscopies and bloodwork for this, but no source of bleeding has been identified. She had a toe surgery two weeks ago and was taking 600mg ibuprofen Q6 hrs for 2-3 days following surgery, but then stopped. She took one more 600mg dose yesterday because of the neck pain. Besides this, she does not take NSAIDS, ASA, or other anticoagulation. She has had some dysphagia and trismus secondary to pain and feeling that her throat is tight, but is able to tolerate a regular diet and liquids. She has not had trouble breathing. This has never happened to her before. PMH: None PSH: Toe surgery 2 weeks ago Meds: MVI All: NKDA SH: No smoking, drinks socially ROS: Relevant ROS negative, except as noted in HPI. Exam: Filed Vitals: 09/12/11 1355 BP: 118/67 Pulse: 88 Temp: 37.3 ??C (99.1 ??F) Resp: 18 Gen: Alert, NAD, voice normal, breathing comfortably without stridor/stertor Head: NCAT Face: symmetric movement, hirsute eyes: PERRL, EOMI Ears: nl externally Nose: nares patent, no drainage Mouth: moist, pink, FOM soft Oropharynx: nl palate, no lesions Neck: Visible swelling of the right supraclavicular area which is soft and compressible. Moderatelytender in this area particularly, No overlying ecchymosis, erythema, or warmth. non-tender, no LAD Imaging: OSH CT scan of the neck with contrast was personally reviewed and reviewed with Dr. Clements of head and neck radiology. There is an abnormal medium- density, expansile process in the right inferior neck extending below the clavicle and into the mediastinum. There appear to be subtle loculations or nodular components. The process is adjacent to the thyroid, but there is no visible thyroid nodule/mass. There is no rim-enhancement, though the phase of the contrast would likely not allow for enhancement. The mediastinum is widened. The right IJV is compressed. The trachea is deviated to theleft, but not noticeably compressed. A/P: Healthy 31 y.o. woman with spontaneous onset of expansile process in the right neck and chest,of yet unknown etiology. Based on exam and imaging, likely diagnosis is hematoma, but bleeding source is unknown. Tumor, possibly with internal hemorrhage, is another possibility. An infectious process is also possible, though her clinical appearance does not seem to support this. She is in no distress and has not had signs of rapid expansion nor airway compromise. Per neuroradiology recommendations (Eskey) we will order MRI to further delineate diagnosis. Admit for observation and workup. -Admit 5W -MRI of neck and chest as soon as possible -Thoracic surgery consult given the large component of this process which extends into the chest. -Prn pain medications LOUISE GROSS MD 09/12/2011 documented in this encounter Procedure Notes * Libia Rodrigues MD - 09/17/2011 5:18 PM EDT VIR PROCEDURE REPORT PROCEDURE: CT guided mediastinal mass biopsy ACC#: [id number] INDICATION: Mediastinal and base of neck mass. Diagnosis needed. Technique: After discussing risks (including infection, hemorrhage), and benefits, patient consented to the procedure. Split doses of fentanyl and versed were administered by the IR nurse during continuous monitoring of pulse, blood pressure and oxygen saturation. The mediastinal mass was localized with axial CT images. After sterile preparation overlying skin, 1% lidocaine SQ was administered for local anesthesia. A suitable level and access path was selectedand under intermittent CT guidance, a 19 g introducer needle was advanced under CT guidance to the s uperficial margin of the mass. Approach was left parasternal, medial to the internal thoracic artery and vein, at approximately the level of the aortic arch. Coaxially, 7 20 g core biopsy specimens were obtained and submitted to Pathology. Pathology was present At time of biopsy, confirming lymphoid tissue in the sample. For this reason, additional core sample was submitted for flow cytometry. The needle was removed and hemostasis obtained. Patient tolerated the procedure well. Findings: No overall change in size of anterior mediastinal mass. Mass was very dense/hard; difficult to advance the core biopsy needle, with resultant bending of the needle. An additional needle had to be utilized to obtain the last 3 biopsies. Medications: Versed 6 mg iv, fentanyl 300 mcg iv Impression: CT guided core needle biopsy of mediastinal mass. 7 core samples obtained, and tissue was sent for flow cytometry. No immediate complications. Resident/Fellow: Woodrow Lyons DO Procedure performed by: Libia Rodrigues MD. I performed the entire procedure. documented in this encounter ED Notes * Lauren De Luna RN - 09/12/2011 4:00 PM EDT Report phoned to ISABEL Fleming. Pt prepared for transport to 5th floor. * Lauren De Luna RN - 09/12/2011 3:[address] Gross in to speak to pt regarding plan of care. PLAN: Admission and MRI. Pt. Verbalized understanding. * Lauren De Luna RN - 09/12/2011 3:04 PM EDT * Julius Payne - 09/12/2011 2:23 PM EDT No chief complaint on file. HPI No Known Allergies Review of Systems Physical Exam Procedures MDM ED Course: ED ATTENDING BRIEF NOTE: This 31 y.o. female was transferred from an outside hospital emergency department to receive specialty care provided by the ENT service for right neck hematoma. I reviewed the patients vitals as recorded in the electronic medical record, ED nursing notes, and discussed the case with resident/fellowof the accepting service. The patient was deemed to be stable and not require significant involvement from the attending emergency physician at this time. The accepting service has assumed further care of the patient. Please see their notes for any further clinical details. Julius Payne Jr., MD 09/12/11 1430 * Lauren De Luna RN - 09/12/2011 1:30 PM EDT Pt. Arrived via EMS--A/O x3. RR even and nonlabored. Skin p/w/d. Lungs clear bilat. Right neck sidemoderately swollen. +pain. +limited ROM to neck movement. +difficulty swallowing. No drooling noted. Dr. Gross at bedside. #20 to RAC intact. documented in this encounter Miscellaneous Notes * Miscellaneous - Provider, Scanning - 10/01/2011 10:31 AM EDT * Miscellaneous - Provider, Scanning - 09/27/2011 10:56 AM EDT * Miscellaneous - Provider, Scanning - 09/27/2011 10:49 AM EDT * Discharge Summary - Anuj Knight Jaimee - 09/13/2011 11:26 AM EDT [place] [id number] Primary Diagnosis: Neck Mass Secondary Diagnosis: There are no active non-hospital problems to display for this patient. History of Presentation: (Per Dr. Gross's note) 31 y.o. woman transferred from [facility] with right neckswelling. She was in her usual state of health until she woke up yesterday and had right neck pain.She assumed she had pulled a muscle, but the pain progressed. She had trouble sleeping last due to the pain, and when she woke up this morning, she noted that her right neck was visibly swollen. The swelling and pain have continued to slowly progress over the course of today. She presented to the local ED where a CT scan was performed which showed a right neck mass extending into the chest which appeared c/w a hematoma and she was transferred here for further evaluation. She denies any history of trauma to her neck. Denies a h/o easy bleeding, though she is mildly anemic (Hb around 11, per her report) and she has undergone GI endoscopies and bloodwork for this, but no source of bleeding hasbeen identified. She had a toe surgery two weeks ago and was taking 600mg ibuprofen Q6 hrs for 2-3 days following surgery, but then stopped. She took one more 600mg dose yesterday because of the neckpain. Besides this, she does not take NSAIDS, ASA, or other anticoagulation. She has had some dysphagia and trismus secondary to pain and feeling that her throat is tight, but is able to tolerate aregular diet and liquids. She has not had trouble breathing. This has never happened to her before. Hospital Course: Vidhi Perez was admitted on 09/12/11 for appearance of neck mass She came with plain films and aCT scan of the neck showing a 47mm x 39mm mass suspicious for possible hematoma and extension into the mediastinum. Because of the extension into th emediastinum CT surgery was consulted as well. At the time of admissions she was afebrile, had no difficulties swallowing or breathing, and the mass was not expanding. Because of this she was initially treated conservatively with pain control and no abx or steroids administered. Her scans were discussed with neuroradiology and it was reccomended toobtain MRI of the head and neck to further evaluate the mass. The MRI results were also discussed and they were suggestive of a mediastinal mass with hemorrhage and hematoma into the surrounding superior space. Results were discussed with CT surgery team and radiology regarding further evaluation. Plan will be for patient to get CT guided biopsy by radiology on Friday. CT surgery to see before she leaves today. Labs: Recent Results (from the past 24 hour(s)) CBC (WITH DIFF) Component Value Range ??? WBC 11.2 (*) 4.0 - 10.0 (x10(3)/mcL) ??? RBC 3.26 (*) 3.93 - 5.22 (x10(6)/mcL) ??? Hemoglobin 8.9 (*) 11.2 - 15.7 (gm/dL) ??? Hematocrit 27.4 (*) 34.0 - 45.0 (%) ??? MCV 84.0 79.0 - 94.0 (fL) ??? MCH 27.3 26.6 - 32.2 (pg) ??? MCHC 32.5 32.0 - 36.5 (gm/dL) ??? Platelets 344 145 - 370 (x10(3)/mcL) ??? RDWSD 40.9 35.0 - 46.0 (fL) ??? RDWCV 13.5 10.9 - 14.4 (%) ??? MPV 8.6 (*) 9.0 - 12.0 (fL) BASIC METABOLIC PANEL (NON-FASTING) Component Value Range ??? Glucose Lvl 106 60 - 199 (mg/dL) ??? BUN 5 (*) 8 - 18 (mg/dL) ??? Creatinine 0.54 (*) 0.70 - 1.20 (mg/dL) ??? Sodium 135 135 - 145 (mmol/L) ??? Potassium 3.7 3.5 - 5.0 (mmol/L) ??? Chloride 102 98 - 107 (mmol/L) ??? CO2 26 22 - 31 (mmol/L) ??? Anion Gap 7 5 - 15 (mmol/L) ??? Calcium 8.5 8.5 - 10.5 (mg/dL) ? ? Estimated GFR >60 >=60 DIFFERENTIAL, AUTOMATED Component Value Range ??? Neutrophils % 83.5 (*) 34.0 - 71.0 (%) ??? Neutr Abs (ANC) 9.32 (*) 1.50 - 6.30 (x10(3)/mcL) ??? Lymphocytes % 8.4 (*) 19.0 - 53.0 (%) ??? Lymphocytes Abs 0.9 (*) 1.0 - 3.6 (x10(3)/mcL) ??? Monocytes % 7.3 4.0 - 13.0 (%) ??? Monocyte Abs 0.8 0.2 - 1.0 (x10(3)/mcL) ??? Eosinophils % 0.2 0.0 - 7.0 (%) ??? Eosinophils Abs 0.0 0.0 - 0.5 (x10(3)/mcL) ??? Basophils % 0.4 0.0 - 2.0 (%) ??? Basophils Abs 0.0 0.0 - 0.2 (x10(3)/mcL) ??? Immature Gran % 0.20 0.00 - 0.66 (%) ??? Maryann Gran Abs 0.02 0.00 - 0.05 (x10(3)/mcL) @[email or web address] Vidhi Perez Home Medication Instructions HORACIO:[id number] Printed on:09/13/11 1231 Medication Information ranitidine (ZANTAC) 150 mg tablet Take 150 mg by mouth daily as needed. Indications: Gastroesophageal Reflux vitamin 27 & kgyprha-uqqq-OI 60 mg iron-1 mg tablet Take 1 tablet by mouth daily. OXYcodone-acetaminophen (ROXICET) 5-325 mg/5 mL solution Take 5-10 mLs by mouth every 4 hours as needed for Pain. Allergies: No Known Allergies Discharge Exam Vital signs: Blood pressure 109/59, pulse 82, temperature 36.5 ??C (97.7 ??F), temperature source Tympanic, resp. rate 18, height 170.2 cm (5' 7), weight 92 kg (202 lb 13.2 oz), last menstrual period 09/12/2011, SpO2 99.00%. Gen: NAD ENT: Good ROM in neck, slightly tender to palpation, palpabl decrease in size of the neck mass thismorning, though still an obvious mass. No fluctuance, no subcutaneous air. No erythema or ecchymosis. Trachea appears midline Cardio: RRR, no m/g/r/ Pulm: CTAB Abd: S,NT, ND Primary Care Physician: RAQUEL WOODARD There are no Patient Instructions on file for this visit. * Miscellaneous - Provider, Scanning - 09/13/2011 8:58 AM EDT * Miscellaneous - Provider, Scanning - 09/12/2011 11:19 PM EDT * Consult Note - Kevin Easley MD - 09/12/2011 4:03 PM EDT Thoracic Surgery Consultation Note Consulted by: ENT service Reason for consultation: mass in neck that extends to mediastinum HPI: Vidhi Perez is a 31 y.o. female who was transferred from [facility] with right neck swelling. She states [...] This has never happened to her before. PMH: None PSH: Toe surgery 2 weeks ago Ganglion cyst removal in high school Tonsil and adenoids removed as a child Meds: MVI and pre-lydia vitamin daily All: NKDA SH: No smoking, drinks socially ROS: Relevant ROS negative, except as noted in HPI. Exam: Filed Vitals: 09/12/11 1355 BP: 118/67 Pulse: 88 Temp: 37.3 ??C (99.1 ??F) Resp: 18 Gen: Alert, NAD, voice normal, breathing comfortably without stridor/stertor Head: normocephalic, atraumatic Face: symmetric movement eyes: PERRL, EOMI Ears: nl externally Nose: nares patent, no drainage Mouth: moist, pink, normal Neck: Visible swelling of the right supraclavicular area which is soft and compressible. Moderatelytender in this area particularly, No overlying ecchymosis, erythema, or warmth. non-tender, no LAD,no obvious mass. Imaging: OSH CT scan of the neck with contrast: abnormal medium-density, expansile process in the right inferior neck extending below the clavicle and into the mediastinum. There appears to be subtleloculations or nodular components. The process is adjacent to the thyroid, but there is no visible t hyroid nodule/mass. There is no rim-enhancement, though the phase of the contrast would likely not allow for enhancement. The mediastinum is widened. The right IJV is compressed. The trachea is deviated to the left, but not noticeably compressed. A/P: Vidhi Perez is a 31 y.o. female otherwise healthy female with acute onset spontaneous process in the right neck/chest. She appears currently stable and it protecting her airway and does not have any SOB or have any trouble breathing. Etiology is uncertain, but most likely hematoma/bleedinggiven time line and appearance on CT. Less likely malignancy or infection. - No indication for acute thoracic surgery intervention - agree with MRI as ordered by primary team to include chest to evaluate full extent of mass. KEVIN EASLEY MD 09/12/2011 * Miscellaneous - Provider, Scanning - 09/12/2011 3:31 PM EDT * ED Triage - Lauren De Luna RN - 09/12/2011 1:56 PM EDT Pt. Transferred from [facility] after presenting there with c/o right side of neck swelling andpain. CT there revealed hematoma. Transferred here--accepted by ENT. Dr. Gross at bedside immediately upon arrival to ED. documented in this encounter Plan of Treatment Not on file documented as of this encounter Procedures Procedure Name Priority Date/Time Associated Diagnosis Comments NON-C JAVA DEVELOPER FLOW CYTOMETRY REPORT Routine 09/17/2011 5:24 PM EDT NON-C JAVA DEVELOPER FINAL REPORT Routine 09/17/2011 5:[address] GUIDED BIOPSY LUNG Routine 09/17/2011 5:17 PM EDT IMMUNOPHENOTYPING FLOW CYTOMETRY (BLOOD) Routine 09/17/2011 4:10 PM EDT CYTOPATHOLOGY NON-GYNECOLOGICAL Routine 09/17/2011 4:10 PM EDT DIFFERENTIAL, AUTOMATED Routine 09/13/19 6:46 AM EDT CBC (WITH DIFF) Routine 09/13/2011 6:46 AM EDT BASIC METABOLIC PANEL Routine 09/13/2011 6:46 AM EDT MRI NECK WITH/WO CONTRAST STAT 2011 10:03 PM EDT MRI CHEST WITH/WO CONTRAST STAT 09/12/2011 10:03 PM EDT REQUEST FOR 2ND READ CT SPINE Routine 09/12/2011 2:58 PM EDT documented in this encounter Results * NON-C JAVA DEVELOPER FINAL REPORT (09/17/2011 5:24 PM EDT) Non-Pupil Personnel Services Director Final Report ? [facility] ? Provider: ?? LALITO SÁNCHEZ ?? Pt. Name: ?? VIDHI PEREZ ? Acc #: ?[id number] ?Pt. ? Col Date: ?? 09/17/2011 ? /Sex: ?1980,(31 years),Female ? Rec Date: ?? 09/17/2011 ? LOC: ?3W ? CYTOPATHOLOGY: ??NGYN ? ---Adequacy--- ? Specimen submitted is satisfactory. ? ---Cytopathologic Diagnosis--- ? Suspicious for Malignancy ? 09/18/11 ?Screened by: ? SLA ? Rescreened by: ?? EJG,PK ? 09/20/11 ?Verified by: ? Valentina ROBERTS, Ag ?Hematopathologist ?(Electronic Signature) ? ---Comment--- ? Mediastinal mass (CT-guided needle core biopsy and touch imprint cytology): ? Suspicious for Hodgkin lymphoma. Additional biopsies recommended. ? Core biopsies with fibrosis and nodules of cells containing lymphocytes, a ? rare single eosinophil and occasional crushed atypical lymphocytes better ? delineated by immunostains. ? Immunohistochemistry Studies: ? Interpretation: ??Formalin-fixed, paraffin-embedded tissue sections are ? studied for CD30, CD20, PAX5, LCA, PAX5, Cytokeratin on block(s) a using ? the Avidin-Biotin Complex Technique with appropriate controls. ??CD30 ? highlights a population of abnormal lymphocytes which fail to stain ? significantly for any other markers they were tested for. ? These IHC's provide the pathologist with adjunctive diagnostic information. ? Antibody specificity has been verified by testing antibodies on a series of ? in-house tissues with known immunohistochemical performance ? characteristics. The clinical interpretation of any antibody positive ? staining or its absence is evaluated within the context of clinical ? presentation, morphology, ??histopathological criteria and other diagnostic ? tests. ? Case Discussed with Dr Vincent Sánchez 09/20/11. ? ---Clinical Information--- ? Specimen Source: ?Mediastinal mass (CT-guided needle core biopsy and touch imprint ? cytology - assisted) ? [facility] ? Provider: ?? LALITO SÁNCHEZ ?? Pt. Name: ?? ANA, VIDHI Spicer ? Acc #: ?[id number] ?Pt. ? Col Date: ?? 09/17/2011 ? /Sex: ?1980,(31 years),Female ? Rec Date: ?? 09/17/2011 ? LOC: ?3W ? CYTOPATHOLOGY: ??NGYN ? Site: ?Mediastinal mass ? Clinical History/Impression: ?Right anterior mediastinal mass ? path. ? Gross Description: ?Received in 10 mL of Physiosol, labeled with the patient's name and ? medical record number, are 2 hemorrhagic, friable red needle core biopsies, ? 0.6 x 0.1 cm and 0.7 x 0.1 cm. (EJR/GJJ) ?Total Preparation: Touch Imprint 4; Needle Core Biopsy Block 1. (T1) ? Intra-procedural Immediate Assessment: ? Immediate Assessment on: ??1 ? Site 1 (4 slides): ? Adequate for final diagnosis. ? Mononuclear cells present. ? Immediate Assessment by: Shy Medel MD ? Note: Immediate Assessment results are preliminary assessments of adequacy ? and diagnosis. See final diagnosis and diagnostic comments for completed ? interpretation. MAGDALENA CARTER 09/17/2011 5:24 PM EDT Lalito Sánchez MD PATHOLOGY/CYTOLOGY O RDYULISSA MAGDALENA CARTER * NON-C JAVA DEVELOPER FLOW CYTOMETRY REPORT (09/17/2011 5:24 PM EDT) Non-C JAVA DEVELOPER Flow Cytometry Report ? [facility] ? Provider: ?? LALITO SÁNCHEZ ?? Pt. Name: ?? VIDHI PEREZ ? Acc #: ?[id number] ?Pt. ? Col Date: ?? 09/17/2011 ? /Sex: ?1980,(31 years),Female ? Rec Date: ?? 09/17/2011 ? LOC: ?3W ? ANALYTICAL CELL PATHOLOGY ? ---Clinical Information--- ? mediatinal mass, ? Lymphoma ? ---Preparation--- ? FNA biopsy, mediastinal mass ? [id number], [id number] ? ---Markers--- ?Lymphoid (T) ? CD3 ? pos ? CD4/CD3 ? pos ? CD8/CD3 ? pos ?Lymphoid (B) ? CD19 ?neg ? kappa ? TFTC ? lambda ?TFTC ? ---Interpretation--- ?Cells for immunophenotypic analysis were derived from biopsy. ??A ? lymphoid region, comprising approximately 1% of all cells was used for ? gated analysis. ?Diagnosis: ??Too few lymphoid cells present precludes further ? delineation by flow analysis. see comment ? 09/18/11 ? TMS ? 09/18/11 Verified by: ? Ag Montgomery MD ? Hematopathologist ? (Electronic Signature) ? ---Comment--- ?HISTOLOGIC CORRELATION REQUIRED. ? Flow analysis is an ancillary study. A definite diagnosis requires ? correlation with the morphologic features of this process and if necessary, ? correlation with other ancillary studies like immunohistochemistry , enzyme ? cytochemistry and/or cyto/molecular genetics. ?This test was developed and its performance characteristics determined ? by the Clinical Flow Cytometry Laboratory at [facility] ? Center. It has not been cleared or approved by the U.S. Food and Drug ? Administration. ??The FDA has determined that such clearance or approval is ? not necessary. ??This test is used for clinical purposes. ??It should not be ? regarded as investigational or ? [facility] ? Provider: ?? LALITO SÁNCHEZ ?? Pt. Name: ?? VIDHI PEREZ ? Acc #: ?[id number] ?Pt. ? Col Date: ?? 09/17/2011 ? /Sex: ?1980,(31 years),Female ? Rec Date: ?? 09/17/2011 ? LOC: ?3W ? ANALYTICAL CELL PATHOLOGY ? for research. ??This laboratory is certified under the Clinical Laboratory ? Improvement Act of 1988 (CLIA) as qualified to perform high complexity ? clinical laboratory testing. MAGDALENA CARTER 09/17/2011 5:24 PM EDT Lalito Sánchez MD PATHOLOGY/CYTOLOGY Sandra PECK MAGDALENA CARTER * CT guided lung biopsy (09/17/2011 5:17 PM EDT) Anatomical Region Laterality Modality Computed Tomogra phy 09/17/2011 5:17 PM EDT Impressions 09/18/2011 12:12 PM EDT Impression: ?? CT guided core needle biopsy of mediastinal mass. 7 core samples obtained, and tissue was sent for flow cytometry. No immediate complications. ?? Resident/Fellow: Woodrow Lyons DO ?? Procedure performed by: Libia Rodrigues MD. I performed the entire procedure. ?? Film and interpretation reviewed by the attending Narrative 09/18/2011 12:12 PM EDT VIR PROCEDURE REPORT ?? PROCEDURE: CT guided mediastinal mass biopsy ?? ACC#: [id number] ?? INDICATION: Mediastinal and base of neck mass. Diagnosis needed. ?? Technique: After discussing risks (including infection, hemorrhage), and benefits, patient consented to the procedure. ?? Split doses of fentanyl and versed were administered by the IR nurse during continuous monitoring of pulse, blood pressure and oxygen saturation. ?? The mediastinal mass was localized with axial CT images. After sterile preparation overlying skin, 1% lidocaine SQ was administered for local anesthesia. A suitable level and access path was selected and under intermittent CT guidance, a 19 g introducer needle was advanced under CT guidance to the superficial margin of the mass. Approach was left parasternal, medial to the internal thoracic artery and vein, at approximately the level of the aortic arch. Coaxially, 7 20 g core biopsy specimens were obtained and submitted to Pathology. Pathology was present At time of biopsy, confirming lymphoid tissue in the sample. For this reason, additional core sample was submitted for flow cytometry. ?? The needle was removed and hemostasis obtained. Patient tolerated the procedure well. ?? Findings: ?? No overall change in size of anterior mediastinal mass. Mass was very dense/hard; difficult to advance the core biopsy needle, with resultant bending of the needle. An additional needle had to be utilized to obtain the last 3 biopsies. ?? Medications: Versed 6 mg iv, fentanyl 300 mcg iv ?? Procedure Note Libia Rodrigues MD - 09/18/2011 VIR PROCEDURE REPORT PROCEDURE: CT guided mediastinal mass biopsy ACC#: [id number] INDICATION: Mediastinal and base of neck mass. Diagnosis needed. Technique: After discussing risks (including infection, hemorrhage), and benefits, patient consented to the procedure. Split doses of fentanyl and versed were administered by the IR nurseduring continuous monitoring of pulse, blood pressure and oxygen saturation. The mediastinal mass was localized with axial CT images. After sterile preparation overlying skin, 1% lidocaine SQ was administered for local anesthesia. A suitable level and access path was selected and under intermittent CT guidance, a 19 g introducer needle was advanced under CT guidance to the superficial margin of the mass. Approach was leftparasternal, medial to the internal thoracic artery and vein, at approximately thelevel of the aortic arch. Coaxially, 7 20 g core biopsy specimens were obtained and submitted to Pathology. Pathology was present At time of biopsy,confirming lymphoid tissue in the sample. For this reason, additional core sample was submitted for flow cytometry. The needle was removed and hemostasis obtained. Patient tolerated theprocedure well. Findings: No overall change in size of anterior mediastinal mass. Mass was very dense/hard; difficult to advance the core biopsy needle, with resultantbending of the needle. An additional needle had to be utilized to obtain the last3 biopsies. Medications: Versed 6 mg iv, fentanyl 300 mcg iv IMPRESSION Impression: CT guided core needle biopsy of mediastinal mass. 7 core samples obtained,and tissue was sent for flow cytometry. No immediate complications. Resident/Fellow: Woodrow Lyons DO Procedure performed by: Libia Rodrigues MD. I performed the entireprocedure. Film and interpretation reviewed by the attending Julius Acevedo MD IMG CT ORDERABLES * IMMUNOPHENOTYPING FLOW CYTOMETRY (09/17/2011 4:10 PM EDT) Type of Specimen CT guided mediastinal ma CERNER MILLENNIUM Panel Requested Lymphoma Panel CERNER MILLENNIUM Immunophenotyping Flow See Comment CERNER MILLENNIUM Comment: When completed by the Pathologist, the Flow Cytometry Report ([id number]) will display under the Flow Cytometry result section in eDH. Body fluid specimen (specimen) 09/17/2011 4:10 PM EDT 09/18/2011 6:22 AM EDT Narrative Resulting Agency Comment Spec In Lab Lalito Sánchez MD HEMATOLOGY ORDERABLE S MAGDALENA FALLONYURYIUM * Cytopathology Non-Gynecological (09/17/2011 4:10 PM EDT) AP Specimen 09/17/2011 4:10 PM EDT 09/17/2011 4:10 PM EDT Narrative CERAZEB MILLENNIUM - 09/17/2011 4:10 PM EDT Specimen requisition ordered. ??Separate Pathology report to follow Lalito Sánchez MD PATHOLOGY/CYTOLOGY O RDERABLES MAGDALENA FALLONYURYIUM * (ABNORMAL) DIFFERENTIAL, AUTOMATED (09/13/2011 6:46 AM EDT) Neutrophil % 83.5(H) 34.0 - 71.0 % CERNER MILLENNIUM Neutrophil Absolute 9.32(H) 1.50 - 6.30 x10(3)/mc L CERNER MILLENNIUM Lymph % 8.4(L) 19.0 - 53.0 % CERNER MILLENNIUM Lymphocytes Abs 0.9(L) 1.0 - 3.6 x10(3)/mc L CERNER MILLENNIUM Monocyte % 7.3 4.0 - 13.0 % CERNER MILLENNIUM Monocyte Abs 0.8 0.2 - 1.0 x10(3)/mc L CERNER MILLENNIUM Eos % 0.2 0.0 - 7.0 % CERNER MILLENNIUM Eosinophils Abs 0.0 0.0 - 0.5 x10(3)/mc L CERNER MILLENNIUM Basophil % 0.4 0.0 - 2.0 % CERNER MILLENNIUM Baso [...] x10(3)/mc L CERNER MILLENNIUM Blood specimen (specimen) 09/13/2011 6:46 AM EDT 09/13/2011 7:16 AM EDT Julius Acevedo MD HEMATOLOGY ORDERABLE S [facility] * (ABNORMAL) Basic Metabolic Panel (non-fasting) (09/13/2011 6:46 AM EDT) [facility] Glucose 106 60 - 199 mg/dL CERNER MILLENNIUM Comment:Diabetes: >=200 mg/d L plus symptoms Blood Urea Nitrogen 5(L) 8 - 18 mg/dL CERNER MILLENNIUM Creatinine 0.54(L) 0.70 - 1.20 mg/dL CERNER MILLENNIUM Comment: Please note that the pediatric reference intervals supplied above were not validated at [facility]. Results from pediatric patients should be interpreted in conjunction to the patient's age, height and muscle mass. Sodium 135 135 - 145 mmol/L CERNER MILLENNIUM Potassium 3.7 3.5 - 5.0 mmol/L CERNER MILLENNIUM Comment: [...] 5 - 15 mmol/L CERNER MILLENNIUM Calcium 8.5 8.5 - 10.5 mg/dL CERNER MILLENNIUM Est Glomerular Filtration Rate [...] J Am Soc Nephrol;6:1963-72. Blood specimen (specimen) 09/13/2011 6:46 AM EDT 09/13/2011 7:16 AM EDT Narrative Resulting Agency Comment Spec In Lab Julius Acevedo MD CHEMISTRY ORDERABLES CERNER MILLENNIUM * (ABNORMAL) CBC (with Diff) (09/13/2011 6:46 AM EDT) White Blood Cell 11.2(H) 4.0 - 10.0 x10(3)/mc L CERNER MILLENNIUM Red Blood Cell 3.26(L) 3.93 - 5.22 x10(6)/mc L CERNER MILLENNIUM Hemoglobin 8.9(L) 11.2 - 15.7 gm/dL CERNER MILLENNIUM Hematocrit 27.4(L) 34.0 - 45.0 % CERNER MILLENNIUM Mean Cell Volume 84.0 79.0 - 94.0 fL CERNER MILLENNIUM Mean Cell Hemoglobin 27.3 26.6 - 32.2 pg CERNER MILLENNIUM Mean Cell Hemoglobin Concentration 32.5 32.0 - 36.5 gm/dL CERNER MILLENNIUM Platelet 344 145 - 370 x10(3)/mc L CERNER MILLENNIUM RDW Standard Deviation 40.9 35.0 - 46.0 fL CERNER MILLENNIUM RDW coefficient of variation 13.5 10.9 - 14.4 % CERNER MILLENNIUM Mean Platelet Volume 8.6(L) 9.0 - 12.0 fL CERNER MILLENNIUM Blood specimen (specimen) 09/13/2011 6:46 AM EDT 09/13/2011 7:16 AM EDT Narrative Resulting Agency Comment Spec In Lab Julius Acevedo MD HEMATOLOGY ORDERABLE S CERAZEB LEHMANENNIUM * MRI CHEST WITH/WO CONTRAST (09/12/2011 10:03 PM EDT) Anatomical Region Laterality Modality Chest Magnetic Resonan ce 09/12/2011 10:0 3 PM EDT Narrative 09/16/2011 4:38 PM EDT Examination MR Neck W WO Jose Daniel Clinical History Reason for exam and clinical history: expanding right neck mass. possible hematoma vs tumor.; Comparison CT of the neck with contrast 09/12/2011. Technique MRI acquired of the chest in thorax after administration of before and after administration of 20 mL of Magnevist. Findings There is a multi lobulated heterogeneously enhancing mass within the anterior mediastinum which begins inferiorly at the level of and lateral to the right ventricle and extends upward throughout the mediastinum and right neck. ??Again seen is extensive soft tissue edema and enhancement in the right neck including the carotid sheath, prevertebral space, and multiple muscular planes. ??There is a 30 x 39 x 48 mm cystic/necrotic multiloculated fluid collection in the right neck with ring enhancement. ??The mass displaces the jugular vein anteriorly and narrows it along with severely narrowing in the superior vena cava. ??The trachea and right carotid is displaced to the left, similar to prior CT scan. Impression Large multi lobulated anterior mediastinal mass with a ring-enhancing cystic component in the right neck and marked surrounding soft tissue edema as described above. Unknown etiology, the differential diagnosis includes but not limited to thymoma, or lymphoma, or other tumor which has hemorrhaged or become superinfected. Film and interpretation reviewed by the attending Procedure Note Allison Reid MD - 09/16/2011 Examination MR Neck W WO Jose Daniel Clinical History Reason for exam and clinical history: expanding right neck mass. possible hematoma vs tumor.; Comparison CT of the neck with contrast 09/12/2011. Technique MRI acquired of the chest in thorax after administration of before andafter administration of 20 mL of Magnevist. Findings There is a multi lobulated heterogeneously enhancing mass within theanterior mediastinum which begins inferiorly at the level of and lateral to theright ventricle and extends upward throughout the mediastinum and right neck.Again seen is extensive soft tissue edema and enhancement in the right neckincluding the carotid sheath, prevertebral space, and multiple muscular planes.There is a 30 x 39 x 48 mm cystic/necrotic multiloculated fluid collection in theright neck with ring enhancement. The mass displaces the jugular veinanteriorly and narrows it along with severely narrowing in the superior vena cava. The trachea and right carotid is displaced to the left, similar to prior CTscan. Impression Large multi lobulated anterior mediastinal mass with a ring-enhancingcystic component in the right neck and marked surrounding soft tissue edema as described above. Unknown etiology, the differential diagnosis includes butnot limited to thymoma, or lymphoma, or other tumor which has hemorrhaged orbecome superinfected. Film and interpretation reviewed by the attending Julius Acevedo MD IMG MRI ORDERABLES * MRI NECK WITH/WO CONTRAST (09/12/2011 10:03 PM EDT) Anatomical Region Laterality Modality Neck Magnetic Resonan ce 09/12/2011 10:0 3 PM EDT Narrative 09/16/2011 4:38 PM EDT Examination MR Neck W WO Jose Daniel Clinical History Reason for exam and clinical history: expanding right neck mass. possible hematoma vs tumor.; Comparison CT of the neck with contrast 09/12/2011. Technique MRI acquired of the chest in thorax after administration of before and after administration of 20 mL of Magnevist. Findings There is a multi lobulated heterogeneously enhancing mass within the anterior mediastinum which begins inferiorly at the level of and lateral to the right ventricle and extends upward throughout the mediastinum and right neck. ??Again seen is extensive soft tissue edema and enhancement in the right neck including the carotid sheath, prevertebral space, and multiple muscular planes. ??There is a 30 x 39 x 48 mm cystic/necrotic multiloculated fluid collection in the right neck with ring enhancement. ??The mass displaces the jugular vein anteriorly and narrows it along with severely narrowing in the superior vena cava. ??The trachea and right carotid is displaced to the left, similar to prior CT scan. Impression Large multi lobulated anterior mediastinal mass with a ring-enhancing cystic component in the right neck and marked surrounding soft tissue edema as described above. Unknown etiology, the differential diagnosis includes but not limited to thymoma, or lymphoma, or other tumor which has hemorrhaged or become superinfected. Film and interpretation reviewed by the attending Procedure Note Allison Reid MD - 09/16/2011 Examination MR Neck W WO Jose Daniel Clinical History Reason for exam and clinical history: expanding right neck mass. possible hematoma vs tumor.; Comparison CT of the neck with contrast 09/12/2011. Technique MRI acquired of the chest in thorax after administration of before andafter administration of 20 mL of Magnevist. Findings There is a multi lobulated heterogeneously enhancing mass within theanterior mediastinum which begins inferiorly at the level of and lateral to theright ventricle and extends upward throughout the mediastinum and right neck.Again seen is extensive soft tissue edema and enhancement in the right neckincluding the carotid sheath, prevertebral space, and multiple muscular planes.There is a 30 x 39 x 48 mm cystic/necrotic multiloculated fluid collection in theright neck with ring enhancement. The mass displaces the jugular veinanteriorly and narrows it along with severely narrowing in the superior vena cava. The trachea and right carotid is displaced to the left, similar to prior CTscan. Impression Large multi lobulated anterior mediastinal mass with a ring-enhancingcystic component in the right neck and marked surrounding soft tissue edema as described above. Unknown etiology, the differential diagnosis includes butnot limited to thymoma, or lymphoma, or other tumor which has hemorrhaged orbecome superinfected. Film and interpretation reviewed by the attending Julius Acevedo MD G MRI ORDERABLES * REQUEST FOR 2ND READ CT SPINE (09/12/2011 2:58 PM EDT) Anatomical Region Laterality Modality C-spine, T-spine, L-spine Other 09/12/2011 2:58 PM EDT Narrative 09/12/2011 8:36 PM EDT Examination OUTSIDE CT NECK with contrast Clinical History Referring clinician Dr. Gross Believes a reinterpretation of this exam may alter care of Patient. Yes; What Modality is the exam? CT Scan; Body Part (please add comments as necessary): neck; Reason for exam and question to be answered. Outside hospital CT neck. Expanding right neck mass. Unknown dx.;os Comparison None. Technique We are reviewing CT images acquired of the neck after administration of contrast at [facility]. Findings A mass at the right neck base measures 5.1 x 4 x 4.6 cm. No peripheral enhancement is identified, however, this examination was performed in the early venous phase making it difficult to comment on the presence or absence of peripheral enhancement. The mass extends from the mediastinum up to the level of the thyroid gland. The inferior extent of the mass into the mediastinum is not completely imaged on this study. ??Surrounding the mass is extensive soft tissue stranding and fluid. Fluid tracks into the retropharyngeal space and carotid space on the left side. Soft tissue stranding extends towards the right shoulder. The mass displaces and narrows the jugular vein. ??No contrast is identified within the superior vena cava. The trachea and carotid artery are shifted without narrowing of the carotid artery. A prominent lymph node is seen adjacent to the left nasopharynx, otherwise no lymphadenopathy. ??No underlying osseous abnormality is seen. ??The thyroid gland is separate from this lesion. Impression 1. Large mass in the right neck base with extensive surrounding fluid and soft tissue stranding as detailed above. ??Given acute onset of symptoms, this may represent a primary malignancy that has bled. ??Alternatively, an infectious process is a possibility. An MRI is pending for further evaluation. Film and interpretation reviewed by the attending Procedure Note Santiago Xiong MD - 09/12/[address] NECK with contrast Clinical History Referring clinician Dr. Gross Believes a reinterpretation of this exam may alter care of Patient. Yes; What Modality is the exam? CT Scan; Body Part (please add comments as necessary): neck; Reason for exam and question alejandra answered. Outside hospital CT neck. Expanding right neck mass. Unknowndx.;os Comparison None. Technique We are reviewing CT images acquired of the neck after administration of contrast at [facility]. Findings A mass at the right neck base measures 5.1 x 4 x 4.6 cm. No peripheral enhancement is identified, however, this examination was performed in theearly venous phase making it difficult to comment on the presence or absence of peripheral enhancement. The mass extends from the mediastinum up to thelevel of the thyroid gland. The inferior extent of the mass into the mediastinumis not completely imaged on this study. Surrounding the mass is extensivesoft tissue stranding and fluid. Fluid tracks into the retropharyngeal spaceand carotid space on the left side. Soft tissue stranding extends towards theright shoulder. The mass displaces and narrows the jugular vein. No contrast is identified within the superior vena cava. The trachea and carotid arteryare shifted without narrowing of the carotid artery. A prominent lymph node isseen adjacent to the left nasopharynx, otherwise no lymphadenopathy. Nounderlying osseous abnormality is seen. The thyroid gland is separate from thislesion. Impression 1. Large mass in the right neck base with extensive surrounding fluid andsoft tissue stranding as detailed above. Given acute onset of symptoms, thismay represent a primary malignancy that has bled. Alternatively, aninfectious process is a possibility. An MRI is pending for further evaluation. Film and interpretation reviewed by the attending Julius Acevedo MD IMG OUTSIDE INTERPRE TATION ORDERABLES documented in this encounter Visit Diagnoses Not on filedocumented in this encounter Administered Medications Inactive Administered Medications - up to 3 most recent administrations Medication Order MAR Action Action Date Dose Rate Site fentaNYL (PF) 50 mcg/mL injection 1 dose, Starting on Fri09/17/11 at 1614, Until Fri09/17/11 at 1630, JORY JACKSON: Cabinet Override fentaNYL 50mcg/mL injection 25-50 mcg, Intravenous, EVERY 5 MIN PRN, Starting on Fri09/17/11 at 1439, Until Fri09/17/11 at 1709, per protocol, Angio/IR (Day of Procedure), Routine Given 09/17/2011 4:30 PM EDT 300 mcg gadopentetate dimeglumine (MAGNEVIST) injection 20 mL 20 mL, Intravenous, ONCE PRN, Per Protocol, Starting on Marleny 09/12/11 at 1948, 1 dose, Until Marleny 09/12/11 at 2151 Given 09/12/2011 9:51 PM EDT 20 mLs midazolam (VERSED) 1 mg/mL injection 1 dose, Starting on Fri09/17/11 at 1614, Until Fri09/17/11 at 1708, JORY JACKSON: Cabinet Override Given 09/17/2011 5:08 PM EDT 6 mg morphine 2 mg/mL carpuject 1 mg 1 mg, Intravenous, EVERY 2 HOURS PRN, Starting on Marleny 09/12/11 at 1359, Until Fri09/13/11 at 1659, Pain, Routine Given 09/12/2011 8:00 PM EDT 1 mg Given 09/12/2011 2:12 PM EDT 1 mg ondansetron (ZOFRAN) injection 4 mg 4 mg, Intravenous, EVERY 8 HOURS PRN, Starting on Marleny 09/12/11 at 2348, Until Fri09/13/11 at 1659, Nausea, Routine Given 09/13/2011 12:15 AM EDT 4 mg OXYcodone-acetaminophen (ROXICET) 5-325 mg/5 mL oral solution 5-10 mL 5-10 mL, Oral, EVERY 4 HOURS PRN, Pain, Starting on Marleny 09/12/11 at 1359, Until Fri09/13/11 at 1659, Maximum dose of acetaminophen is 4000 mg from all sources in 24 hours. Given 09/13/2011 11:27 AM EDT 10 mLs Given 09/13/2011 4:20 AM EDT 10 mLs Given 09/12/2011 10:00 PM EDT 10 mLs senna-docusate (PERICOLACE) 8.6-50 mg per tablet 1-4 tablet 1-4 tablet, Oral, 2 TIMES DAILY, First dose on Marleny 09/12/11 at 2100, Until Discontinued, Start with 1 tablet or liquid equivalent orally twice daily and titrate up to achieve: 1. One bowel movement at least every 48 hours, AND 2. Without straining, Routine Given 09/12/2011 9:00 PM EDT 1 tablet sodium chloride 0.9% infusion 100 mL/hr, Intravenous, CONTINUOUS, Starting on Marleny 09/12/11 at 1745, Until Fri09/13/11 at 1659 New Bag 09/13/2011 8:20 AM EDT 100 mL/hr 100 mL/hr New Bag 09/12/2011 9:45 PM EDT 100 mL/hr 100 mL/hr documented in this encounter Active and Recently Administered Medications Times are shown in EDT. Scheduled Medication Order 09/11/2011 09/12/2011 09/13/2011 senna-docusate (PERICOLACE) 8.6-50 mg per tablet 1-4 tablet (CANCELED) 1-4 tablet, Oral, 2 TIMES DAILY, First dose on Marleny 09/12/11 at 2100, Until Discontinued, Start with 1 tablet or liquid equivalent orally twice daily and titrate up to achieve: 1. One bowel movement at least every 48 hours, AND 2. Without straining, Routine 2100 (Given - Provider: Marcos Zhou RN) 0900 (Not Given - Provider: Clary Cancino RN - Reason: NPO) Continuous Medication Order 09/11/2011 09/12/2011 09/13/2011 sodium chloride 0.9% infusion (CANCELED) 100 mL/hr, Intravenous, CONTINUOUS, Starting on Marleny 09/12/11 at 1745, Until 09/13/11 at 1659 1999 (Canceled Entry - Provider: Marcos Zhou RN)2145 (New Bag - Provider: Marcos Zhou RN - Comment: patient returned from MRI) 0820 (New Bag - Provider: Clary Cancino RN) PRN Medication Order 09/11/2011 09/12/2011 09/13/2011 gadopentetate dimeglumine (MAGNEVIST) injection 20 mL (COMPLETED) 20 mL, Intravenous, ONCE PRN, Per Protocol, Starting on Marleny 09/12/11 at 1948, 1 dose, Until Marleny 09/12/11 at 2151 2151 (Given - Provider: Claire Cárdenas) morphine 2 mg/mL carpuject 1 mg (CANCELED) 1 mg, Intravenous, EVERY 2 HOURS PRN, Starting on Marleny 09/12/11 at 1359, Until 09/13/11 at 1659, Pain, Routine 1412 (Given - Provider: Lauren De Luna RN)1999 (Given - Provider: Marcos Zhou, ISABEL) ondansetron (ZOFRAN) injection 4 mg (CANCELED) 4 mg, Intravenous, EVERY 8 HOURS PRN, Starting on Marleny 09/12/11 at 2348, Until Fri09/13/11 at 1659, Nausea, Routine 0015 (Given - Provid er: Marcos Zhou RN) OXYcodone-acetaminophen (ROXICET) 5-325 mg/5 mL oral solution 5-10 mL 5-10 mL, Oral, EVERY 4 HOURS PRN, Pain, Starting on Marleny 09/12/11 at 1359, Until Fri09/13/11 at 1659, Maximum dose of acetaminophen is 4000 mg from all sources in 24 hours. 1412 (Given - Provider: Lauren De Luna RN)1715 (Given - Provider: Marcos Zhou RN)1800 (Given - Provider: Marcos Zhou RN)2200 (Given - Provider: Marcos Zhou RN) 0420 (Given - Provider: Marcos Zhou RN)1127 (Given - Provider: Bernice Lawson RN) documented in this encounter Care Teams Manager Housekeeping Relationship Specialty Start Date End Date Bre Ortega PA PCP - General 05/30/11 09/15/11 documented as of this encounter
--- OUTSIDE RECORDS SUMMARY | 2024-04-07 01:45 | XMS_ITS | Encounter Summary ---
Author Organization [facility] Address [facility] [place] [place] [address] Care Team Providers Care Pals Specialist Name Role Phone Bre Ortega Primary Care Provider [phone] Encounter Details Date Type Department Care Team (Late st Contact Info) Description 09/13/2011 Orders [place] [address] Nimisha Garcia MD [facility] [place] [address] Social History Tobacco Use Types Packs/Day Years Used Date Smoking Tobacco: Never Smokeless Tobacco: Never Alcohol Use Standard Drinks/Week Comments No 0 (1 standard drink = 0.6 oz pur e alcohol) Sex and Gender Information Value Date Recorded Sex Assigned at Not on file Gender Identity Not on file Sexual Orientation Not on file documented as of this encounter Progress Notes * Nimisha Garcia MD - 09/13/2011 1:01 PM EDT PRE-PROCEDURE VIR NOTE Date of : 1980 Age: 31 y.o. PCP: RAQUEL WOODARD Referring Physician (if different): SKYLAR/RENATO Indication: Mediastinal mass Planned Procedure: CT guided mediastinal mass biopsy Chief Complaint/Diagnosis: Per Dr. Patiño's note) 31 y.o. woman transferred from [facility] with right neck swelling. She was in her usual state of health until she woke up yesterday and had right neck pain. She assumed she had pulled a muscle, but the pain progressed. She had trouble sleeping last due tothe pain, and when she woke up this morning, she noted that her right neck was visibly swollen. The swelling and pain have continued to slowly progress over the course of today. She presented to the local ED where a CT scan was performed which showed a right neck mass extending into the chest whichappeared c/w a hematoma and she was transferred here for further evaluation. She denies any historyof trauma to her neck. Denies a h/o easy bleeding, though she is mildly anemic (Hb around 11, per her report) and she has undergone GI endoscopies and bloodwork for this, but no source of bleeding has been identified. She had a toe surgery two weeks ago and was taking 600mg ibuprofen Q6 hrs for 2-3days following surgery, but then stopped. She took one more 600mg dose yesterday because of the neck pain. Pertinent Past Medical/Surgical History: none relevant No Known Allergies Current facility-administered medications ordered prior to encounter Medication Dose Route Frequency Provider Last Rate Last Dose ??? OXYcodone-acetaminophen (ROXICET) 5-325 mg/5 mL oral solution 5-10 mL 5-10 mL Oral Q4H PRN Coty Patiño MD Last Dose: 10 mL at 09/13/11 1127 ??? morphine 2 mg/mL carpuject 1 mg 1 mg Intravenous Q2H PRN Darrian Patiño MD Last Dose: 1 mg at 09/12/111999 ??? sodium chloride 0.9% infusion 100 mL/hr Intravenous Continuous Darrian Patiño MD 100 mL/hr (09/13/11819) Last Dose: 100 mL/hr at 09/13/11819 ??? senna-docusate (PERICOLACE) 8.6-50 mg per tablet 1-4 tablet 1-4 tablet Oral BID Darrian Patiño MD Last Dose: 1 tablet at 09/12/112099 ??? polyethylene glycol (MIRALAX) packet 17 g 17 g Oral Daily PRN Darrian Patiño MD ??? lactulose (CHRONULAC) 20 gram/30 mL oral solution 20-40 g 30-60 mL Oral Daily PRN Darrian Patiño MD ??? bisacodyl (DULCOLAX) EC tablet 10 mg 10 mg Oral BID PRN Darrian Patiño MD ??? bisacodyl (DULCOLAX) suppository 10 mg 10 mg Rectal Daily PRN Darrian Patiño MD ??? magnesium citrate oral solution 300 mL 300 mL Oral Daily PRN Darrian Patiño MD ??? magnesium citrate oral solution 300 mL 300 mL Per G Tube Daily PRN Darrian Patiño MD ??? gadopentetate dimeglumine (MAGNEVIST) injection 20 mL 20 mL Intravenous Once PRN aTrun Clements MD Last Dose: 20 mL at 09/12/11 2151 ??? ondansetron (ZOFRAN) injection 4 mg 4 mg Intravenous Q8H PRN David Augustin MD Last Dose: 4 mgat 09/13/11 0015 Current outpatient prescriptions ordered prior to encounter Medication Sig Dispense Refill ??? OXYcodone-acetaminophen (ROXICET) 5-325 mg/5 mL solution Take 5-10 mLs by mouth every 4 hours as needed for Pain. 300 mL 0 ??? ranitidine (ZANTAC) 150 mg tablet Take 150 mg by mouth daily as needed. Indications: Gastroesophageal Reflux ? ? vitamin 27 & [id number] 60 mg iron-1 mg tablet Take 1 tablet by mouth daily. Pertinent ROS: as per HPI Pertinent Family History: non contributory Social History: n/a Labs: Lab Results Component Value Date WBC 11.2* 09/13/2011 HCT 27.4* 09/13/2011 PLATELET 344 09/13/2011 BUN 5* 09/13/2011 No results found for this basename: alkphos, ast, albumin, bilidir, bilitot, alt, Imaging: CT 09/12/11 and MR 09/12/11 show large mediastinal mass with central hematoma extending intoright neck Assessment / Plan: CT guided mediastinal mass biopsy Ddx: lymphoma, thymoma, Medications to discontinue: none Prophylactic antibiotic: none Planned access site / position: supine, right (access tract between clavicular head and third rib anteriorly; may require IV contrast documented in this encounter Plan of Treatment Not on file documented as of this encounter Visit Diagnoses Not on filedocumented in this encounter Care Teams Pals Specialist Relationship Specialty Start Date End Date Bre Ortega PA PCP - General 05/30/11 09/15/11 documented as of this encounter
--- OUTSIDE RECORDS SUMMARY | 2024-04-07 01:45 | XMS_ITS | Encounter Summary ---
[place] [address] Care Team Providers Care Holter Scanning Technician Name Role Phone Arabella Villarreal MD Primary Care Provider [phone] Encounter Details Date Type Department Care Team (Latest Contact Info) Description 09/24/2011 8:51 AM EDT - 09/24/2011 10:46 AM EDT Hospital Encounter [place] [address] Mediastinal mass Social History Tobacco Use Types Packs/Day Years [...] Gastroesophageal Reflux 04/02/19 23 vitamin 27 & [id number] 60 mg iron-1 mg tablet Take 1 tablet by mouth daily. 04/02/2022 documented as of this encounter Plan of Treatment Not on file documented as of this encounter Procedures Procedure Name Priority Date/Time Associated Diagnosis Comments CT CHEST W CONTRAST Routine 09/24/2011 9 :14 AM EDT Mediastinal mass documented in this encounter Results * CT chest with contrast (09/24/2011 9:14 AM EDT) Anatomical Region Laterality Modality Chest Computed Tomogra phy 09/24/2011 9:14 AM EDT Narrative 09/24/2011 6:[address] Chest With Contrast Clinical History mediastinal mass, preoperative planning Comparison MRI of the neck with contrast done on [address] of the neck with contrast done 09/12/2011. Technique Helical CT of the chest performed following the intravenous administration of 60 mL of Omnipaque 350. Findings Amorphous mass extending superiorly above the level of the scan with partial encasement of the right carotid and part of the innominate artery. ??The mass extends inferiorly into the right paratracheal space, prevascular space, and anterior mediastinum. ??There is deviation of the right carotid artery anteriorly and to the left with tracheal deviation to the left and compression of the right brachiocephalic vein. ??Difficult to distinguish borders of the conglomerate mass on this examination may reflect lobular mass versus associated lymph node enlargement. ??Anterior mediastinum mass /lymph node measuring 5.7 cm x 2.8 cm (series 2, image 23). ??Right lower anterior mediastinum mass /lymph node measuring 2.5 cm x 6.1 cm (series 2, image 33). ?? Aortopulmonary window mass /lymph node 12 mm (series 2, image 24). ??The lungs are clear and there are no pericardial or pleural effusions. ??The visualized portions of the spleen, pancreas, adrenal glands, and kidneys are unremarkable without focal lesions. ??Small hypodensity noted in the anterior liver (series 2, image 62) that is nonspecific and too small to characterize. Impression 1. ??Large conglomerate mass located in the anterior mediastinum as described above. ??Etiology is unknown, differential diagnosis includes but is not limited to thymoma, lymphoma, or other tumor with a possible hemorrhage or superinfection. Film and interpretation reviewed by the attending Procedure Note Julius Traore MD - 09/24/[address] Chest With Contrast Clinical History mediastinal mass, preoperative planning Comparison MRI of the neck with contrast done on [address] of the neck with contrast done 09/12/2011. Technique Helical CT of the chest performed following the intravenous administrationof 60 mL of Omnipaque 350. Findings Amorphous mass extending superiorly above the level of the scan withpartial encasement of the right carotid and part of the innominate artery. Themass extends inferiorly into the right paratracheal space, prevascular space,and anterior mediastinum. There is deviation of the right carotid artery anteriorly and to the left with tracheal deviation to the left andcompression of the right brachiocephalic vein. Difficult to distinguish borders ofthe conglomerate mass on this examination may reflect lobular mass versus associated lymph node enlargement. Anterior mediastinum mass /lymph node measuring 5.7 cm x 2.8 cm (series 2, image 23). Right lower anterior mediastinum mass /lymph node measuring 2.5 cm x 6.1 cm (series 2, image33). Aortopulmonary window mass /lymph node 12 mm (series 2, image 24). Thelungs are clear and there are no pericardial or pleural effusions. Thevisualized portions of the spleen, pancreas, adrenal glands, and kidneys areunremarkable without focal lesions. Small hypodensity noted in the anterior liver(series 2, image 62) that is nonspecific and too small to characterize. Impression 1. Large conglomerate mass located in the anterior mediastinum asdescribed above. Etiology is unknown, differential diagnosis includes but is notlimited to thymoma, lymphoma, or other tumor with a possible hemorrhage or superinfection. Film and interpretation reviewed by the attending Courtney Garcia MD IMG CT ORDERABLES documented in this encounter Visit Diagnoses Diagnosis Mediastinal mass Swelling, mass, or lump in chest documented in this encounter Administered Medications Inactive Administered Medications - up to 3 most recent administrations Medication Order MAR Action Action Date Dose Rate Site iohexol (OMNIPAQUE) 350 mg/mL injection 21,000 mg 21,000 mg (60 mL), Intravenous, ONCE PRN, 1 dose, Starting on Fri09/24/11 at 0913, Until Fri09/24/11 at 0913, Per Protocol, Routine Given 09/24/2011 9:13 AM EDT 21,000 mg documented in this encounter Care Teams Holter Scanning Technician Relationship Specialty Start Date End Date Arabella Villarreal MD [address] [place] [address] PCP - General 09/16/11 documented as of this encounter
--- OUTSIDE RECORDS SUMMARY | 2024-04-07 01:45 | XMS_ITS | Encounter Summary ---
Author [place] [address] Care Team Providers Care Sole Tacker Name Role Phone Arabella Villarreal MD Primary Care Provider [phone] Encounter Details Date Type Department Care Team (Late st Contact Info) Description 09/19/2011 Telephone [place] [address] Corutney Garcia MD Social History Tobacco Use Types [...] Telephone Encounter - Courtney Garcia MD - 09/19/2011 1:25 PM EDT Called patient with plan: Dr. Sánchez asked that I proceed with management of this patient. She has recently presented with a neck/chest mass. CT guided biopsy was non-diagnostic. I would like to plan for her to visit me on Friday for an appointment, signing of consent, CT of the chest and pre admission testing appointment. We will plan for a thoracoscopic biopsy on 09/25/11. documented in this encounter Plan of Treatment Not on file documented as of this encounter Results * CT chest with [...] in this encounter Visit Diagnoses Diagnosis Mediastinal mass- Primary Swelling, mass, or lump in chest Mediastinal mass Swelling, mass, or lump in chest documented in this encounter Care Teams Sole Tacker Relationship Specialty Start Date End Date Arabella Villarreal MD [address] [place] [address] PCP - General 09/16/11 documented as of this encounter
--- OUTSIDE RECORDS SUMMARY | 2024-04-07 01:45 | XMS_ITS | Encounter Summary ---
[place] [address] Care Team Providers Care Drafting Detailer Name Role Phone Bre Ortega Primary Care Provider Encounter Details Date Type Department Care Team (Late st Contact Info) Description 09/12/2011 Orders [place] [address] Julius Payne Jr., MD Social History Tobacco [...] filedocumented in this encounter Care Teams Drafting Detailer Relationship Specialty Start Date End Date Bre Ortega PA PCP - General 05/30/11 09/15/11 documented as of this encounter
[2024-04-07 16:08] LABS: Hemoglobin A1C 5.3 % (<5.7)
[2024-04-09 11:05] LABS: Lyme Ab w Rflx to Lyme Confirm Negative (Negative)
[2024-04-12 18:38] LABS: Anaplasma phagocytophilum Negative (Negative); B. miyamotoi PCR Negative (Negative); Babesia divergens/MO-1 Negative (Negative); Babesia duncani Negative (Negative); Babesia microti Negative (Negative); Ehrlichia chaffeensis Negative (Negative); Ehrlichia ewingii/canis Negative (Negative); Ehrlichia muris eauclairensis Negative (Negative)
== END 2024-04-07 01:04 | disposition home or self-care (01) ==
PROVIDERS: PCP Family Medicine; Visit Provider Family Medicine
DX: G50.9 Disorder of trigeminal nerve, unspecified (principal); Z00.00 Encounter for general adult medical examination without abnormal findings; E11.9 Type 2 diabetes mellitus without complications
CPT/HCPCS: 36415; 87798; 83036; 86618

== ENCOUNTER 2024-09-22 01:57 | Outpatient (CLI) | payer BC, SELFPAY ==
--- NOTE | 2024-09-22 09:56 | DI.MAMMO_ITS ---
Exam(s) MAMMO SCREENING EXAM: MAMMO SCREENING CLINICAL HISTORY: screening TECHNIQUE: Bilateral full field digital CC and MLO mammographic images were obtained with 3D tomosynthesis and utilizing computer aided detection (CAD). COMPARISON: Comparison is made with prior examinations. FINDINGS: Masses/Architectural Distortion: No suspicious masses or areas of architectural distortion are present. Microcalcifications: No suspicious pleomorphic-type are seen. Skin Thickening/Nipple Retraction: None. IMPRESSION: 1. No significant interval change with no specific features of malignancy noted. 2. Unless there is more urgent need, screening mammography is recommended, as per [employer] guidelines. BI-RADS Category 1 - Negative Breast Density - Category C - The breast are heterogeneously dense, which may obscure small masses. Breast density Category C or D implies that the patient has dense breast tissue. Dense breast tissue can make it harder to find cancer on a mammogram. Dense breast tissue is also associated with an increased risk of breast cancer. This information about the result of the mammogram report was provided to the patient to raise their awareness. Use this report when you speak with the patient about their risks for breast cancer, which includes their family history. At that time, you may recommend additional screening tests (Ultrasound or MRI) as these tests may add significant information. A negative radiographic report should not delay biopsy if a dominant or clinically suspicious mass is present. Up to ten percent of cancers are not identified on mammography. A negative report may reinforce clinical impression. Adenosis and dense breasts may obscure an underlying neoplasm. False positive reports average 6 to 10%. Patient will receive a letter notifying them of these results.
== END 2024-09-22 02:17 ==
LOC: DI 01:57
PROVIDERS: PCP Family Medicine; Visit Provider Obstetrics & Gynecology
DX: Z12.31 Encounter for screening mammogram for malignant neoplasm of breast (principal); R92.333 Mammographic heterogeneous density, bilateral breasts
CPT/HCPCS: 77063; 77067